=== PATIENT | female | born 1960 | race Caucasian/White ===

== ENCOUNTER 2016-09-18 05:51 | Outpatient (CLI) | payer MEDICARE ==
[~2016-09-18] VITALS: Ht 172.7 cm; Wt 88.9 kg
[~2016-09-18 05:51] MED LIST: ALPR.25T; ALPR.25T PO; ALPR.5T PO; ASPI-892 PO; ATEN50TA PO; BP MED; BSP5T PO; BUME1TAB4 PO; BUME2TAB3 PO; CAL1TABL3 PO; CALC-172 PO; CALC-385 PO; CALC-794 PO; CITA20TA7 PO; CITA40TA19 PO; CYCL-97 PO; CYCL10TA9 PO; DIAZ2.5K RC; DILT60CA; DILTIAZEM; DLT30T; DOXY100C2 PO; DOXY100C49; ETD400T PO; FLUT16SP22 NS; FOLI1TAB6 PO; FURO20TA4; FURO20TA4 PO; GBPN100C PO; GBPN300C PO; GELA650C3 PO; HCT25T; HYDR-3812 PO; HYDR118S10 PO; HYDR200T46 PO; IBUP-1780 PO; LEVO100T7 PO; LISI10TA PO; LISI20TA PO; LORA0.5T; LUBI24CA6 PO; LVT.025T PO; METF500T4 PO; METO50TA7; METO50TA7 PO; METR500T PO; MOXI400T3 PO; MULT-1029 PO; MULT-974 PO; NAPR250T34 PO; NAPR550T PO; NF-ESOM40C PO; OMEP20CA12 PO; ONDAN4ODT PO; PARO20TA57 PO; POTA20TA15 PO; PRD20T; PRD20T PO; PRED2.5T4 PO; QUIN20TA; QUIN40TA PO; SERT25TA PO; TIZA2CAP7 PO; TRAM50TA2 PO; TRAZ50TA67 PO; TRM50T PO; ZOLP10TA5 PO
[2016-09-18] MEDS ORDERED: LEVO150T6 PO (14:36)
== END 2016-09-18 14:38 ==
LOC: PREOP 05:51
PROVIDERS: ATTEND Surgery
DX: Z01.818 Encounter for other preprocedural examination (principal); R13.10 Dysphagia, unspecified

== ENCOUNTER 2016-09-22 12:28 | Day surgery (SDC) | payer MEDICARE, OTHER ==
[~2016-09-22] VITALS: Ht 172.7 cm; Wt 88.9 kg
[~2016-09-22 12:28] MED LIST changes: +LEVO150T6 PO
--- NOTE | 2016-09-22 12:40 | Pre-Op Note & Conscious Sedat ---
Pre-Operative Progress Note H&P Reviewed The H&P was reviewed, patient examined and no changes noted. Date H&P Reviewed: Sep 22, 2016 Time H&P Reviewed: 12:40 Pre-Op Diagnosis: dysphagia Conscious Sedation Pre-Proced ASA Class: 2 Airway Mallampati Classification: (ramona appropriate class) I. II. III, IV Lungs Heart ASA score ASA 1: a normal healthy patient ASA 2: a patient with a mild systemic disease (mid diabetes, controlled hypertension, obesity ASA 3: a patient with a severe systemic disease that limits activity (angina , COPD, prior Myocardial infarction) ASA 4: a patient with an incapacitating disease that is a constant threat to life (CHF, renal failure) ASA 5: a moribund patient not expected to survive 24 hrs. (ruptured aneurysm) ASA 6: a declared brain patient whose organs are being harvested. For emergent operations, add the letter E after the classification Grade 2 Sedation Plan: Discussed options with patient/fam Note The patient is an appropriate candidate to undergo the planned procedure, sedation, and anesthesia. The patient immediately re-assessed prior to indication. JHONY BRAND MD Sep 22, 2016 12:40 pm
[2016-09-22] MEDS ORDERED: NALOXONE 0.4 MG/ML 1 ML (NARCAN) VIAL IVP PRN (12:45)
[2016-09-22] MEDS ORDERED: NS IV 500 ML 500 ML IV ONE (12:45)
[2016-09-22] MEDS ORDERED: FLUMAZENIL (ROMAZICON) 0.1 MG/ML 5 ML VIAL INJ PRN (12:45)
[2016-09-22 12:55] VITALS: BP 141/71
[2016-09-22] MEDS ORDERED: fentaNYL INJECTION 100 MCG/2 ML AMP ONE ×2 (13:13→13:36)
[2016-09-22] MEDS ORDERED: MIDAZOLAM 2 MG/2 ML (VERSED) VIAL ONE ×4 (13:13→13:35)
[2016-09-22] MEDS ORDERED: HURRICAINE EXT TUBE (BENZOCAINE) ONE (13:14)
[2016-09-22 13:15] VITALS: BP 101/54
[2016-09-22] MEDS: MIDAZOLAM 2 MG/2 ML (VERSED) VIAL IVP PRN ×4 (13:33→13:44)
[2016-09-22] MEDS: fentaNYL INJECTION 100 MCG/2 ML AMP IVP PRN ×2 (13:35→13:40)
--- NOTE | 2016-09-22 14:04 | Progress Note-Post Operative ---
Post-Operative Progess Note Pre-Operative Diagnosis dysphagia Post-Operative Diagnosis hiatal hernia with a distal esophageal stricture. Distal gastritis Post-Op Procedure Note Date of Procedure: Sep 22, 2016 Name of Procedure: EGD with antral biopsy Balloon dilatation of stricture Anesthesia Type sedation Specimen(s) collected antral mucosa for H. pylori JHONY BRAND MD Sep 22, 2016 2:04 pm
--- NOTE | 2016-09-22 14:06 | Discharge Inst-Simple/Standard ---
Discharge Inst-Standard Discharge Medications New, Converted or Re-Newed RX: Other Patient Instructions/Follow Up Plan of Care/Instructions/FU: to increase omeprazole to twice a day Activity as Tolerated: Yes Discharge Diet: No Restrictions JHONY BRAND MD Sep 22, 2016 2:06 pm
[2016-09-22] MEDS ORDERED: HURRICAINE EXT TUBE (BENZOCAINE) XX ONE (14:15)
[2016-09-22 14:45] VITALS: BP 121/60
[2016-09-22 15:00] VITALS: BP 121/60
--- NOTE | 2016-09-23 08:46 | PROCEDURE REPORT ---
PROCEDURE PHYSICIAN: JHONY BRAND DATE OF PROCEDURE: 09/22/2015 PROCEDURE: 1. Upper GI endoscopy with antral biopsy. 2. Balloon dilatation of esophageal stricture. SURGEON: Dr. Brand. INDICATION FOR THE PROCEDURE: This lady came in for an upper endoscopy to evaluate ongoing dysphagia. An informed consent was obtained after reviewing the procedure in detail. DESCRIPTION OF PROCEDURE: She was placed in left lateral decubitus position and her vital signs were monitored. Conscious sedation was achieved using Versed and fentanyl. The flexible gastroscope was introduced down the esophagus, past the stomach, into the proximal. FINDINGS: ESOPHAGUS: Hiatal hernia with a stricture within it. It was dilated to 20 mm with a balloon. STOMACH: Evidence of distal gastritis was noticed. There was no sandrita ulceration. Biopsy for Helicobacter was obtained. DUODENUM: Normal. She tolerated the procedure well and was taken back to the nursing area in a stable condition. IMPRESSION: 1. Dysphagia due to a distal esophageal stricture. 2. Balloon dilatation completed. Job ID: [id number] Dictated Date: 09/22/2016 14:04:01 Technician Helper Instrument Date: 09/23/2016 08:44:46 / swetha GILES
== END 2016-09-22 15:00 | disposition home or self-care (01) ==
LOC: SDC 12:28
PROVIDERS: ATTEND Surgery
DX: K22.2 Esophageal obstruction (principal); K44.9 Diaphragmatic hernia without obstruction or gangrene

== ENCOUNTER → 2016-10-28 | Outpatient (CLI) | payer MEDICARE ==
[2016-10-28 11:10] LABS: MEAN PLATELET VOLUME 10.5 FL (7.4-10.4); RED BLOOD COUNT 4.43 10^6/uL (4.35-5.85); RED CELL DISTRIBUTION WIDTH 12.5 % (10.0-14.5); WHITE BLOOD COUNT 6.9 10^3/uL (4.3-11.0)
== END ==
LOC: LAB 10:47
PROVIDERS: ATTEND Surgery
DX: E05.90 Thyrotoxicosis, unspecified without thyrotoxic crisis or storm (principal); R53.83 Other fatigue
CPT/HCPCS: 36415; 84436; 84443; 84480; 85027

== ENCOUNTER → 2017-01-13 | Outpatient (CLI) | payer MEDICARE ==
--- NOTE | 2017-01-15 19:12 | Diagnostic Imaging Report ---
Bilateral screening mammogram The current study was also evaluated with a Computer Aided Detection (CAD) system. Indication: Screening. No current complaints stated on the questionnaire. COMPARISON: 09/18/15 FINDINGS: The breasts are composed of heterogeneously dense parenchyma which may decrease mammographic sensitivity. Benign-appearing calcifications are seen. Allowing for technique and positional differences, no suspicious change is seen. IMPRESSION: Dense breasts with no definite change. ACR BI-RADS Category 2: Benign findings. Result letter will be mailed to the patient. Note: At least 10% of breast cancer is not imaged by mammography. Dictated by: Dictated on workstation # [id number]
== END ==
LOC: RAD 09:41
PROVIDERS: ATTEND Nurse Practitioner Community Health
DX: Z12.31 Encounter for screening mammogram for malignant neoplasm of breast (principal)
CPT/HCPCS: 77067

== ENCOUNTER → 2017-01-13 | Outpatient (CLI) | payer MEDICARE | LOC: LAB 09:45 | PROVIDERS: ATTEND Surgery | DX: C73 Malignant neoplasm of thyroid gland (principal) | CPT/HCPCS: 36415; 84436; 84443 ==

== ENCOUNTER → 2017-03-13 | Outpatient (CLI) | payer MEDICARE ==
--- NOTE | 2017-03-13 14:28 | Diagnostic Imaging Report ---
PROCEDURE: CT urinary tract, rule out kidney stone. TECHNIQUE: Multiple contiguous axial images were obtained through the abdomen and pelvis without the use of intravenous contrast. INDICATION: Right flank pain. COMPARISON: 01/01/2012 FINDINGS: Included views of the lung bases are clear. CT abdomen: Moderate air and stool is seen scattered throughout the colon. Normal appendix is identified. Small bowel loops are nondistended. There is colonic diverticulosis, but no CT evidence of acute diverticulitis. The kidneys, adrenal glands, spleen, pancreas, and liver have an unremarkable noncontrast CT appearance. No renal or ureteral calculi are seen on either side. Additionally, there is no hydroureteronephrosis or other evidence of obstruction. There is no loculated fluid collection, free fluid, nor free air within the abdomen. No abnormal mesenteric or retroperitoneal adenopathy is seen. There is mild calcified aortic and arterial atherosclerosis. Bony structures show no acute abnormalities. CT pelvis: Urinary bladder is unopacified. No calculi are seen within the urinary bladder. There is no loculated fluid collection, free fluid, nor free air. No abnormal lymph node is seen. Bony structures show no acute abnormalities. IMPRESSION: 1. No acute abnormalities within the abdomen or pelvis. 2. Colonic diverticulosis, but no CT evidence of acute diverticulitis. 3. Moderate colonic air and stool. Please correlate for constipation. Dictated by: Dictated on workstation # [id number]
== END ==
LOC: RAD 12:49
PROVIDERS: ATTEND Nurse Practitioner Community Health
DX: K57.30 Diverticulosis of large intestine without perforation or abscess without bleeding (principal); K59.00 Constipation, unspecified
CPT/HCPCS: 74176

== ENCOUNTER → 2017-07-07 | Outpatient (CLI) | payer MEDICARE ==
[2017-07-07 11:09] LABS: BASOPHILS % (AUTO) 0 % (0-10); EOSINOPHILS # (AUTO) 0.1 10^3/uL (0.0-0.3); EOSINOPHILS % (AUTO) 2 % (0-10); LYMPHOCYTES # (AUTO) 1.6 X 10^3 (1.0-4.0); LYMPHOCYTES % (AUTO) 22 % (12-44); MEAN CORPUSCULAR HEMOGLOBIN 30 PG (25-34); MEAN CORPUSCULAR HGB CONC 34 G/DL (32-36); MEAN CORPUSCULAR VOLUME 87 FL (80-99); MEAN PLATELET VOLUME 10.8 FL (7.4-10.4); MONOCYTES # (AUTO) 0.7 X 10^3 (0.0-1.0); MONOCYTES % (AUTO) 10 % (0-12); NEUTROPHILS # (AUTO) 4.8 X 10^3 (1.8-7.8); NEUTROPHILS % (AUTO) 66 % (42-75); PLATELET COUNT 276 10^3/uL (130-400); RED BLOOD COUNT 4.68 10^6/uL (4.35-5.85); RED CELL DISTRIBUTION WIDTH 13.1 % (10.0-14.5); WHITE BLOOD COUNT 7.2 10^3/uL (4.3-11.0)
[2017-07-07 11:28] LABS: ALANINE AMINOTRANSFERASE 21 U/L (0-55); ALBUMIN 4.3 GM/DL (3.2-4.5); ANION GAP 12 MMOL/L (5-14); ASPARTATE AMINO TRANSFERASE 27 U/L (5-34); BILIRUBIN,TOTAL 0.6 MG/DL (0.1-1.0); BLOOD UREA NITROGEN 11 MG/DL (7-18); BUN/CREATININE RATIO 14; CALCIUM 9.4 MG/DL (8.5-10.1); CARBON DIOXIDE 27 MMOL/L (21-32); CHLORIDE 103 MMOL/L (98-107); CREATININE SERUM 0.77 MG/DL (0.60-1.30); GFR ESTIMATED > 60; GLUCOSE 87 MG/DL (70-105); SODIUM 142 MMOL/L (135-145); TOTAL PROTEIN 7.4 GM/DL (6.4-8.2); hs C REACTIVE PROTEIN 0.37 MG/DL (0.00-0.50)
== END ==
LOC: LAB 10:08
PROVIDERS: ATTEND Internal Medicine Rheumatology
DX: M06.9 Rheumatoid arthritis, unspecified (principal)
CPT/HCPCS: 36415; 80053; 85025; 86141; 86480; 86803; 87340

== ENCOUNTER → 2017-07-27 | Outpatient (CLI) | payer MEDICARE | LOC: CARD 10:15 | PROVIDERS: ATTEND Nurse Practitioner Family | DX: R00.2 Palpitations (principal); R06.02 Shortness of breath; I10 Essential (primary) hypertension; G47.30 Sleep apnea, unspecified | CPT/HCPCS: 93225; 93226 ==

== ENCOUNTER 2017-10-20 10:06 | Emergency (ER) | payer MEDICARE ==
[~2017-10-20] VITALS: Ht 170.2 cm; Wt 93.0 kg
[~2017-10-20 10:06] MED LIST changes: +ACHD5005 PO; -HYDR-3812 PO
[2017-10-20] MEDS ORDERED: FOLI0.4T2 PO (10:19)
[2017-10-20] MEDS ORDERED: METH2.5T PO (10:19)
--- NOTE | 2017-10-20 10:28 | ED Fall/Injury ---
General Chief Complaint: Trauma-Non Activation Stated Complaint: FALL ON ICE-LOWER BACK PAIN Nursing Triage Note: PT AMBULATES TO ROOM 6 PT STATES HAS FALLEN AT 0500 THIS AM AND IS HURTING ON R LOWER BACK AREA, SOME SWELLING AND BRUISING NOTED. PT STATES R LEG HAS PAIN AND NUMBNESS. Source: patient Exam Limitations: no limitations History of Present Illness Date Seen by Provider: Oct 20, 2017 Time Seen by Provider: 10:15 Initial Comments Patient presents to ER by private conveyance with a chief complaint that about 5 :00 this morning she fell going down stairs of her brother's house and landed with the step across her low back. She has a history of chronic back pain without any history of back surgeries. She is disabled for back pain. She says she's having quite a bit of pain in her back that radiates to her left hip causes some tingling sensations. She's had no loss of control of her bowels or bladder. No numbness and no falls since then. She has no dysuria or discharge, fevers chills nausea vomiting. She did not strike her head nor lose consciousness. She is on ibuprofen twice a day 800 mg already as well as tramadol for breakthrough pain. Allergies and Home Medications Allergies Coded Allergies: Penicillins (Verified Allergy, Severe, CARDIAC ARREST, 07/09/16) yeast, dried (Unverified Allergy, Mild, 02/21/09) Home Medications Alprazolam 0.25 Mg Tab, 0.25 MG PO BID PRN for ANXIETY, (Reported) Bumetanide 2 Mg Tablet, 1 MG PO BID, (Reported) take 1/2 of 2mg tab Calcium Carb & Citrate/Vit D3 1 Each Tablet.er, 4 EACH PO BID, (Reported) Citalopram Hydrobromide 20 Mg Tablet, 20 MG PO DAILY, (Reported) Folic Acid 0.4 Mg Tablet, Unknown Dose PO, (Reported) Gabapentin 300 Mg Cap, 300 MG PO TID, (Reported) Gelatin 650 Mg Capsule, 1,300 MG PO DAILY, (Reported) take 2 (650mg) tabs Ibuprofen 800 Mg Tablet, 800 MG PO Q8H PRN for PAIN, (Reported) Levothyroxine Sodium 150 Mcg Tablet, 150 MCG PO DAILY, (Reported) Lisinopril 20 Mg Tablet, 20 MG PO DAILY, (Reported) Metformin HCl 500 Mg Tablet, 500 MG PO DAILY, (Reported) Methotrexate Sodium 2.5 Mg Tablet, Unknown Dose PO WEEK, (Reported) Multivitamin/Iron/Folic Acid 1 Each Tablet, 1 EACH PO DAILY, (Reported) Omeprazole 20 Mg Capsule.dr, 20 MG PO DAILY, (Reported) Potassium Chloride 20 Meq Tab.prt.sr, 20 MEQ PO BID, (Reported) Tramadol Hcl 50 Mg Tablet, 100 MG PO TID, (Reported) take 2 (50MG) TABS Constitutional: No chills, No diaphoresis Eyes: Denies Blindness, Denies Blurred Vision Ears, Nose, Mouth, Throat: denies ear pain, denies nose pain Respiratory: No cough, No short of breath Cardiovascular: No chest pain, No palpitations Gastrointestinal: No constipation, No diarrhea, No nausea Genitourinary: No discharge, No dysuria Past Bmkpmcg-Emwcps-Yvqyie Hx Patient Social History Alcohol Use: Past History Recreational Drug Use: No Smoking Status: Never a Smoker Recent Foreign Travel: No Contact w/Someone Who Travel: No Recent Infectious Disease Expo: No Recent Hopitalizations: No Immunizations Up To Date Date of Pneumonia Vaccine: Jul 29, 2015 Date of Influenza Vaccine: May 12, 2016 Seasonal Allergies Seasonal Allergies: No Surgeries Surgeries: Gallbladder, Thyroidectomy Respiratory Respiratory Disorders: COPD Cardiovascular Cardiac Disorders: Heart Murmur, Hypertension Neurological Neurological Disorders: Headaches /Migraines Reproductive System Hx Reproductive Disorders: No Sexually Transmitted Disease: No HIV/AIDS: No Gastrointestinal Gastrointestinal Disorders: Gastroesophageal Reflux, Diverticulosis Musculoskeletal Musculoskeletal Disorders: Degenerate Disk Disease, Arthritis, Rheumatoid Arthritis, Chronic Back Pain Endocrine Endocrine Disorders: Hypothyroidsim HEENT Loss of Vision: Bilateral Hearing Impairment: Denies Cancer Cancer: Skin Psychosocial Behavioral Health Disorders: Anxiety, Suicide Attempts, Depression Blood Transfusions Adverse Reaction to a Blood Tr: No Physical Exam Vital Signs Vital Signs - First Documented 10/20/17 10:15 Temp 98.2 Pulse 114 Resp 18 B/P (MAP) 120/85 (97) Pulse Ox 96 Capillary Refill : Less Than 3 Seconds General Appearance: WD/WN, no apparent distress HEENT: PERRL/EOMI, pharynx normal Neck: non-tender, supple, normal inspection Cardiovascular: normal peripheral pulses, regular rate, rhythm Respiratory: no respiratory distress, no accessory muscle use Peripheral Pulses: 2+ Dorsalis Pedis (R), 2+ Left Dors-Pedis (L) Back: vertebral tenderness (lumbar spine with some ecchymoses and mild to moderate swelling.) Extremities: normal range of motion, non-tender, normal inspection, normal capillary refill Neurologic/Psychiatric: no motor/sensory deficits, alert, oriented x 3, other ( bilateral patellar deep tendon reflexes are symmetric 2 out of 4.) Skin: ecchymosis (over lumbar spine) [place] Coma Score Best Eye Response: (4) Open Spontaneously Best Verbal Response: (5) Oriented Best Motor Response: (6) Obeys Commands Ashley Total: 15 Progress/Results/Core Measures Results/Orders My Orders Orders - SHAQ CARLISLE Lumbar Spine - 2-3 Views (10/20/17 10:23) Vital Signs/I&O Vital Sign - Last 12Hours 10/20/17 10:15 Temp 98.2 Pulse 114 Resp 18 B/P (MAP) 120/85 (97) Pulse Ox 96 Blood Pressure Mean: 97 Progress Note : Time: 10:27 Progress Note Plain films to rule out fracture given her swelling and pain. Her sciatica is likely due to the local inflammation from her fall. Does not seem to be any inciting event other than slipping on ice on some steps. Shuart he has tramadol is not asking for anything for pain right now and would be amenable to increasing her NSAID dosage for the next 2 weeks. We'll give her an ice pack and talk about other conservative measures. Diagnostic Imaging Diagonstic Imaging: Xray Plain Films/CT/US/NM/MRI: other (lumbar spine) Comments VIA [facility] [place], [place] NAME: JNKAREEM D [facility] REC#: [id number] PT STATUS: REG ER : 1960 PHYSICIAN: SHAQ CARLISLE MD ADMIT DATE: 10/20/17/ER Draft Date of Exam:10/20/17 LUMBAR SPINE - 2-3 VIEWS INDICATION: Back pain post fall AP and lateral views of the lumbar spine are obtained. The lumbar vertebrae are normal in height and alignment. There is diffuse degenerative change with disc space narrowing at essentially all levels most prominent at L4-5. There is osteophyte formation throughout all levels. There is no compression deformity or acute fracture. There is facet degenerative change at L4-5 and L5-S1. IMPRESSION: Degenerative changes. No acute fracture or compression deformity. Dictated on workstation # [id number] Dict: 10/20/17 1104 Trans: 10/20/17 1112 [employer] [facility] [id number] Interpreted by: FLYNN VENTURA MD Electronically signed by: Reviewed: Reviewed by Me Departure Impression Impression: Primary Impression: Fall (on) (from) other stairs and steps, initial encounter Additional Impressions: Lumbar contusion Qualified Codes: S30.0XXA - Contusion of lower back and pelvis, initial encounter Sciatica of left side Disposition: HOME, SELF-CARE Condition: Stable Departure-Patient Inst. Decision time for Depature: 11:26 Referrals: MOE BORJAS MD (PCP) Primary Care Physician ELISEO BENDER (Family) Primary Care Physician Patient Instructions: Low Back Pain (DC) Add. Discharge Instructions: For the first 2 or 3 days apply ice for 20 minutes every 4 hours. You can use heating pads and between as well as creams such as icy hot. Use an NSAID every day on a schedule for the first 2 weeks. For example you can use ibuprofen 800 mg every 8 hours or you can use Naprosyn 2 capsules twice a day. You can also use Tylenol 1000 g every 6 hours as needed as well as your tramadol as prescribed. Stay mobile and use a back brace as needed to help with your pain. Follow up with your primary care physician in about 2-4 weeks ago not seeing adequate improvement. All discharge instructions reviewed with patient and/or family. Voiced understanding. Copy Copies To 1: CASTRO POWELL TITUS J Oct 20, 2017 10:28
--- NOTE | 2017-10-20 11:12 | Diagnostic Imaging Report ---
INDICATION: Back pain post fall AP and lateral views of the lumbar spine are obtained. The lumbar vertebrae are normal in height and alignment. There is diffuse degenerative change with disc space narrowing at essentially all levels most prominent at L4-5. There is osteophyte formation throughout all levels. There is no compression deformity or acute fracture. There is facet degenerative change at L4-5 and L5-S1. IMPRESSION: Degenerative changes. No acute fracture or compression deformity. Dictated by: Dictated on workstation # [id number]
[2017-10-20 11:36] VITALS: BP 120/85
== END 2017-10-20 11:36 | disposition home or self-care (01) ==
LOC: EDUNIT# 10:06 → ER 10:08
DX: S30.0XXA Contusion of lower back and pelvis, initial encounter (principal); M54.32 Sciatica, left side; J44.9 Chronic obstructive pulmonary disease, unspecified; I10 Essential (primary) hypertension; G43.909 Migraine, unspecified, not intractable, without status migrainosus; K21.9 Gastro-esophageal reflux disease without esophagitis; M06.9 Rheumatoid arthritis, unspecified; E03.9 Hypothyroidism, unspecified; F41.9 Anxiety disorder, unspecified; F32.9 Major depressive disorder, single episode, unspecified; R40.2142 Coma scale, eyes open, spontaneous, at arrival to emergency department; R40.2252 Coma scale, best verbal response, oriented, at arrival to emergency department; R40.2362 Coma scale, best motor response, obeys commands, at arrival to emergency department; Z91.5 Personal history of self-harm; Z79.84 Long term (current) use of oral hypoglycemic drugs; Z91.048 Other nonmedicinal substance allergy status; Z90.89 Acquired absence of other organs; W10.8XXA Fall (on) (from) other stairs and steps, initial encounter
CPT/HCPCS: 72100; 99282

== ENCOUNTER → 2017-10-29 | Outpatient (CLI) | payer MEDICARE ==
[~2017-10-29] MED LIST changes: +FOLI0.4T2 PO; +METH2.5T PO
[2017-10-29 09:34] LABS: HEMOGLOBIN 13.7 G/DL (11.5-16.0); MEAN PLATELET VOLUME 10.2 FL (7.4-10.4); RED BLOOD COUNT 4.46 10^6/uL (4.35-5.85); RED CELL DISTRIBUTION WIDTH 13.4 % (10.0-14.5); WHITE BLOOD COUNT 7.3 10^3/uL (4.3-11.0)
[2017-10-29 09:51] LABS: CREATININE SERUM 0.76 MG/DL (0.60-1.30); GFR ESTIMATED > 60
== END ==
LOC: LAB 09:17
PROVIDERS: ATTEND Internal Medicine Rheumatology
DX: M06.9 Rheumatoid arthritis, unspecified (principal)
CPT/HCPCS: 36415; 82565; 84450; 85027; 86141

== ENCOUNTER → 2017-11-09 | Outpatient (CLI) | payer MEDICARE ==
--- NOTE | 2017-11-09 14:44 | Diagnostic Imaging Report ---
INDICATION: History of rheumatoid arthritis, basal cell carcinoma in 2015, as well as a prior history of papillary thyroid carcinoma in 2016, status post total thyroidectomy. Patient sustained a fall on 10/21/2016 and now complains of low back pain as well as upper back pain. TECHNIQUE: The patient was administered 26.1 mCi technetium-99m MDP intravenously, and whole-body imaging was performed after a three-hour delay. COMPARISON: No prior studies are available for comparison. FINDINGS: There is normal uptake of activity by the axial and appendicular skeleton. There is normal uptake of activity by both kidneys with excretion into the urinary bladder. No abnormal foci of tracer accumulation are seen to suggest occult fracture or osseous metastatic disease. There is mild uptake in the right mid foot, likely on a degenerative basis. Very minimal uptake in the lower lumbar spine is identified on the right, likely owing to facet degenerative change. No other abnormalities are seen. IMPRESSION: Degenerative changes. There is no scintigraphic evidence of occult fracture or osseous metastatic disease. Dictated by: Dictated on workstation # [id number]
== END ==
LOC: CARD 10:47
PROVIDERS: ATTEND Internal Medicine Rheumatology
DX: M06.9 Rheumatoid arthritis, unspecified (principal)
CPT/HCPCS: 78306

== ENCOUNTER → 2018-01-26 | Outpatient (CLI) | payer MEDICARE ==
[~2018-01-26] MED LIST changes: -CITA20TA7 PO; +CITA20TA9 PO; -METF500T4 PO; +METF500T5 PO
[2018-01-26 12:05] LABS: HEMOGLOBIN 12.8 G/DL (11.5-16.0); MEAN PLATELET VOLUME 10.1 FL (7.4-10.4); RED BLOOD COUNT 4.13 10^6/uL (4.35-5.85); RED CELL DISTRIBUTION WIDTH 13.7 % (10.0-14.5); WHITE BLOOD COUNT 6.1 10^3/uL (4.3-11.0)
[2018-01-26 12:20] LABS: CREATININE SERUM 0.74 MG/DL (0.60-1.30); GFR ESTIMATED > 60
== END ==
LOC: LAB 11:35
PROVIDERS: ATTEND Internal Medicine Rheumatology
DX: M06.9 Rheumatoid arthritis, unspecified (principal)
CPT/HCPCS: 36415; 82565; 84450; 85027; 86141

== ENCOUNTER → 2018-03-23 | Outpatient (CLI) | payer MEDICARE ==
[~2018-03-23] MED LIST changes: -METH2.5T PO; +MTX2.5T PO
== END ==
LOC: RAD 09:37
PROVIDERS: ATTEND Nurse Practitioner Community Health
DX: Z12.31 Encounter for screening mammogram for malignant neoplasm of breast (principal); Z53.8 Procedure and treatment not carried out for other reasons

== ENCOUNTER → 2018-04-12 | Outpatient (CLI) | payer MEDICARE ==
--- NOTE | 2018-04-12 14:02 | Diagnostic Imaging Report ---
INDICATION: Right breast pain. Patient also had a recent episode of right breast bloody nipple discharge, however patient denies having bloody discharge today. Correlation is made to prior study from 01/13/2017 and 09/18/2015. 2-D and 3-D bilateral diagnostic mammography was performed with CAD. Scattered fibronodular densities are identified bilaterally. The overall parenchymal pattern is stable. No dominant mass is seen. There are benign calcifications present. No malignant appearing microcalcifications are seen. Benign nodular densities in the medial left breast are stable. Axillae are unremarkable. IMPRESSION: BI-RADS zero Stable bilateral mammograms. No mammographic feature suspicious for malignancy are identified. Even so, sonographic interrogation of the right breast in the retroareolar region as well as at the area of the patient's pain is recommended and will be performed today. ACR BI-RADS Category 0: Incomplete. (Needs additional imaging evaluation). Result letter will be mailed to the patient. Note: At least 10% of breast cancer is not imaged by mammography. Dictated by: Dictated on workstation # [id number]
--- NOTE | 2018-04-12 14:08 | Diagnostic Imaging Report ---
INDICATION: Right breast pain as well as recent episodes of bloody nipple discharge. TECHNIQUE: Sonographic interrogation of all four quadrants, right axilla, and retroareolar region of the right breast was performed. FINDINGS: No sonographic abnormality is identified. No solid or cystic mass is detected. IMPRESSION: No sonographic abnormality is seen. Clinical followup is recommended. ACR BI-RADS Category 1: Negative. Dictated by: Dictated on workstation # [id number]
== END ==
LOC: RAD 12:28
PROVIDERS: ATTEND Nurse Practitioner Community Health
DX: N64.52 Nipple discharge (principal)
CPT/HCPCS: 77066

== ENCOUNTER 2018-06-03 05:32 | Outpatient (CLI) | payer MEDICARE ==
[~2018-06-03] VITALS: Ht 170.2 cm; Wt 87.5 kg
[~2018-06-03 05:32] MED LIST changes: +METF-397 PO; -METF500T5 PO
[2018-06-03] MEDS ORDERED: ALPR0.254 PO (14:08)
[2018-06-03] MEDS ORDERED: GABA-488 PO (14:08)
[2018-06-03] MEDS ORDERED: POTA20TA15 PO (14:08)
[2018-06-03] MEDS ORDERED: FOLI1TAB24 PO (14:09)
[2018-06-03] MEDS ORDERED: CITA40TA19 PO (14:09)
[2018-06-03] MEDS ORDERED: TRAM50TA2 PO (14:09)
[2018-06-03] MEDS ORDERED: GELA650C4 PO (14:09)
== END 2018-06-03 14:53 | disposition home or self-care (01) ==
LOC: PREOP 05:32
PROVIDERS: ATTEND Surgery
DX: Z01.818 Encounter for other preprocedural examination (principal)

== ENCOUNTER 2018-06-07 10:53 | Day surgery (SDC) | payer MEDICARE ==
[~2018-06-07] VITALS: Ht 170.2 cm; Wt 87.5 kg
[~2018-06-07 10:53] MED LIST changes: +ALPR0.254 PO; +FOLI1TAB24 PO; +GABA-488 PO; +GELA650C4 PO
[2018-06-07 11:15] VITALS: BP 133/83
[2018-06-07] MEDS ORDERED: VANCOMYCIN 1000 MG/VIAL ONE (11:17)
[2018-06-07] MEDS ORDERED: NS (IVPB) 250 ML ONE (11:18)
--- OUTSIDE RECORDS SUMMARY | 2018-06-07 11:27 | XMS REPORT ---
Author Author ELISEO BENDER [facility] Address [address] [place] [address] Care Team Providers Care Cutter First Name Role Phone ELISEO BENDER Unavailable PROBLEMS Type Condition ICD9-CM Code QKI20-HE Code Onset Dates Condition Status SNOMED Code Problem Chest pain, unspecified type R07.9 Active 16408425 Problem Depression, unspecified depression type F32.9 Active 93571094 Problem Anxiety F41.9 Active 15672659 Problem BMI 30.0-30.9,adult Z68.30 Active 986162279 Problem Moderate episode of recurrent major depressive disorder F33.1 Active 027723042 Problem Thyroid cancer C73 Active 222346760 Problem Postoperative hypothyroidism E89.0 Active 54523107 Problem BMI 31.0-31.9,adult Z68.31 Active 381326496 Problem Other atopic dermatitis L20.89 Active 75840663 Problem Low back pain, unspecified back pain laterality, with sciatica presence unspecified M54.5 Active 019043005 Problem Neuropathy G62.9 Active 745613661 Problem Other chronic pain G89.29 Active 46642910 Problem Dysthymia F34.1 Active 05087677 Problem 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 Active 62052250 Problem Insomnia G47.00 Active 836125451 Problem Gastro-esophageal reflux disease without esophagitis K21.9 Active 551275084 Problem Rheumatoid arthritis, involving unspecified site, unspecified rheumatoid factor presence M06.9 Active 20706298 ALLERGIES No Information ENCOUNTERS Encounter Location Date Diagnosis [facility] [id number], [place] [address] Jun, [facility] [id number], [place] [address] 24 May, 2018 [facility] [id number], [place] [address] May, Discharge from nipple N64.52 and Dysfunction of right eustachian tube H69.81 [place] [address] 32056- 7574 Apr, Low back pain, unspecified back pain laterality, with sciatica presence unspecified M54.5 [facility] [id number] [place] [address] 74165 -0637 Apr, Right ear pain H92.01 [place] [address] 41899- 8973 Apr, Postoperative hypothyroidism E89.0 [place] [address] 61108- 0078 Apr, Low back pain, unspecified back pain laterality, with sciatica presence unspecified M54.5 [place] [address] 32143- 5425 Mar, Breast cancer screening Z12.39 and Discharge from nipple N64.52 [place] [id number] [place] [address] 21581- 6110 Mar, Low back pain, unspecified back pain laterality, with sciatica presence unspecified M54.5 [place] [id number] [place] [address] 83503- 3166 Mar, Low back pain, unspecified back pain laterality, with sciatica presence unspecified M54.5 ; Rheumatoid arthritis, involving unspecified site, unspecified rheumatoid factor presence M06.9 ; Breast cancer screening Z12.39 and Moderate episode of recurrent major depressive disorder F33.1 [place] [address] 74968- 7574 Feb, Low back pain, unspecified back pain laterality, with sciatica presence unspecified M54.5 [place] [id number] [place] [address] 77874- 1955 January, BMI 30.0-30.9,adult Z68.30 [place] [id number] [place] [address] 70010- 0547 15 Jan, 2018 Low back pain, unspecified back pain laterality, with sciatica presence unspecified M54.5 [facility] [id number] [place] [address] 05229- 7506 January, [facility] [id number] [place] [address] 27928- 6801 Dec, Low back pain, unspecified back pain laterality, with sciatica presence unspecified M54.5 [place] [id number] [place] [address] 38638- 0442 Nov, Low back pain, unspecified back pain laterality, with sciatica presence unspecified M54.5 [place] [id number] [place] [address] 62164- 5331 Nov, [place] [address] 36005- 3675 Nov, Low back pain, unspecified back pain laterality, with sciatica presence unspecified M54.5 ; Other chronic pain G89.29 ; Rheumatoid arthritis, involving unspecified site, unspecified rheumatoid factor presence M06.9 and Dysthymia F34.1 [place] [id number] [place] [address] 08471- 2065 Oct, Low back pain, unspecified back pain laterality, with sciatica presence unspecified M54.5 [facility] [id number] [place] [address] 09181- 6472 Sep, Low back pain, unspecified back pain laterality, with sciatica presence unspecified M54.5 [facility] [id number] [place] [address] 00326 -8816 Sep, Fever R50.9 and URI, acute J06.9 [facility] [id number] [place] [address] 80232- 6484 Aug, [facility] [address] [place] [address]- 5868 Aug, Low back pain, unspecified back pain laterality, with sciatica presence unspecified M54.5 [facility] [id number] [place] [address] 06574- 9763 Jul, Low back pain, unspecified back pain laterality, with sciatica presence unspecified M54.5 [facility] [id number] [place] [address] 79479 -4250 Jul, Nausea R11.0 ; Fever and chills R50.9 ; UTI symptoms R39.9 and Hematuria, unspecified type R31.9 [place] [address] 17667- 7945 Jul, [facility] [address] 54258- 5647 Jun, Low back pain, unspecified back pain laterality, with sciatica presence unspecified M54.5 [facility] [address] 88924- 0438 Jun, BMI 31.0-31.9,adult Z68.31 [facility] [address] 41801- 6511 Jun, Neuropathy G62.9 [place] [address] 64816- 3366 Jun, Low back pain, unspecified back pain laterality, with sciatica presence unspecified M54.5 [facility] [id number] [place] [address] 93849- 6283 Jun, Encounter for immunization Z23 [facility] [address] 09842- 5472 Jun, BMI 31.0-31.9,adult Z68.31 [facility] [address] 32216- 2977 Jun, Low back pain, unspecified back pain laterality, with sciatica presence unspecified M54.5 [place] [address] 84722- 5359 May, Low back pain, unspecified back pain laterality, with sciatica presence unspecified M54.5 ; Other chronic pain G89.29 ; Plantar fasciitis M72.2 ; Rheumatoid arthritis, involving unspecified site, unspecified rheumatoid factor presence M06.9 and History of alcohol abuse Z87.898 [place] [address] 30540- 7283 08 May, 2017 Anxiety F41.9 and Low back pain, unspecified back pain laterality, with sciatica presence unspecified M54.5 [place] [address] 60480- 7583 Apr, Anxiety F41.9 and Low back pain, unspecified back pain laterality, with sciatica presence unspecified M54.5 [place] [address] 12756- 5652 18 Mar, 2017 Acute right-sided low back pain without sciatica M54.5 ; Rash R21 ; Right flank pain R10.9 ; Lipid screening Z13.220 ; Other chronic pain G89.29 ; 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 ; Postoperative hypothyroidism E89.0 and Breast cancer screening Z12.39 [place] [address] 40075- 8693 14 Mar, 2017 Anxiety F41.9 and Low back pain, unspecified back pain laterality, with sciatica presence unspecified M54.5 [place] [address] 75464- 1177 13 Mar, 2017 Acute right-sided low back pain without sciatica M54.5 [place] [address] 69568- 9701 07 Mar, 2017 Anxiety F41.9 [place] [address] 47293- 5840 Feb, Right flank pain R10.9 and Anxiety F41.9 [place] [id number] [place] [address] 84997- 5643 16 Feb, 2017 BMI 31.0-31.9,adult Z68.31 [place] [address] 4959 Feb, Low back pain, unspecified back pain laterality, with sciatica presence unspecified M54.5 and Anxiety F41.9 [facility] [address] 86690 -0176 January, Abscess of toe of right foot L02.611 and Other atopic dermatitis L20.89 [place] [address] 19988- 5018 January, Low back pain, unspecified back pain laterality, with sciatica presence unspecified M54.5 and Anxiety F41.9 [place] [address] 72592- 7678 Dec, Anxiety F41.9 and Low back pain, unspecified back pain laterality, with sciatica presence unspecified M54.5 [facility] [address] 12438 -8671 Dec, Scabies B86 [address] [address] 03945- 7259 Nov, Rash R21 ; Other chronic pain G89.29 ; 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 ; Postoperative hypothyroidism E89.0 ; Breast cancer screening Z12.39 and Lipid screening Z13.220 [place] [address] 50534- 3827 Nov, Anxiety F41.9 and Low back pain, unspecified back pain laterality, with sciatica presence unspecified M54.5 [place] [address] 23029- 9227 Oct, Anxiety F41.9 and Low back pain, unspecified back pain laterality, with sciatica presence unspecified M54.5 [place] [id number] [place] [address] 19755- 7515 Sep, Anxiety F41.9 and Low back pain, unspecified back pain laterality, with sciatica presence unspecified M54.5 [facility] [id number] [place] [address] 50022- 0265 Sep, Anxiety F41.9 [facility] [address] 81334- 0814 Sep, Gastro-esophageal reflux disease without esophagitis K21.9 [facility] [address] [id number] Sep, Dental examination Z01.20 [facility] [id number] [place] [address] 24207- 6579 Sep, Low back pain, unspecified back pain laterality, with sciatica presence unspecified M54.5 and Postoperative hypothyroidism E89.0 [facility] [id number] [place] [address] 39724- 4906 Aug, Anxiety F41.9 [facility] [address] 75100- 4923 Aug, [facility] [id number] [place] [address] 62466- 8330 Aug, Low back pain, unspecified back pain laterality, with sciatica presence unspecified M54.5 ; Other chronic pain G89.29 ; Thyroid cancer C73 and Postoperative hypothyroidism E89.0 [facility] [id number] [place] [address] 79993- 5935 Jul, [facility] [address] 25178- 0494 Jul, Anxiety F41.9 [facility] [id number] [place] [address] 68477- 8236 Jul, [facility] [address] 08521- 7903 Jul, BMI 29.0-29.9,adult Z68.29 [place] [address] 24519- 6318 Jul, [place] [address] 76213- 3371 Jul, BMI 30.0-30.9,adult Z68.30 [place] [address] 25830- 6026 Jul, Low back pain, unspecified back pain laterality, with sciatica presence unspecified M54.5 and Anxiety F41.9 [place] [address] 34979- 3209 Jun, 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 [place] [address] 52234- 9845 Jun, BMI 30.0-30.9,adult Z68.30 [place] [address] 74830- 1068 Jun, [place] [address] 21108- 1371 Jun, 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 ; Dysthymia F34.1 ; Encounter for immunization Z23 and Other chronic pain G89.29 [place] [address] 88150- 1198 Jun, Low back pain, unspecified back pain laterality, with sciatica presence unspecified M54.5 [place] [address] 70572- 5764 Jun, BMI 30.0-30.9,adult Z68.30 [place] [address] 80290- 3669 Jun, Anxiety F41.9 [place] [address] 22667- 4179 May, 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 [place] [id number] [place] [address] 06095- 4960 May, Constipation, unspecified constipation type K59.00 [place] [address] 17002- 3420 08 May, 2016 Low back pain, unspecified back pain laterality, with sciatica presence unspecified M54.5 [place] [address] 66140- 4933 May, [place] [address] 73995- 2868 May, Constipation, unspecified constipation type K59.00 [place] [address] 57536- 4718 May, Anxiety F41.9 [place] [address] 47978- 9055 Apr, BMI 31.0-31.9,adult Z68.31 [place] [address] 99308- 7233 Apr, Thyroid goiter E04.9 [place] [address] 45089- 6002 Apr, [place] [id number] [place] [address] 03672- 5457 Apr, Low back pain, unspecified back pain laterality, with sciatica presence unspecified M54.5 [place] [id number] [place] [address] 73249- 2048 Apr, [place] [address] 66784- 8987 Apr, Constipation, unspecified constipation type K59.00 ; Thyroid nodule E04.1 ; Family history of colon cancer Z80.0 and 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 [place] [address] 02968- 5967 Apr, Anxiety F41.9 [facility] [id number] [place] [address] 90653- 3431 Mar, [facility] [id number] [place] [address] 16538- 3824 Mar, Low back pain, unspecified back pain laterality, with sciatica presence unspecified M54.5 [facility] [id number] [place] [address] 73610- 2768 Mar, BMI 32.0-32.9,adult Z68.32 [facility] [id number] [place] [address] 48328- 9791 Feb, Anxiety F41.9 [facility] [id number] [place] [address] 36169- 7727 Feb, Depression, unspecified depression type F32.9 [facility] [id number] [place] [address] 23250- 7325 Feb, BMI 32.0-32.9,adult Z68.32 [facility] [id number] [place] [address] 19806- 4122 Feb, Low back pain, unspecified back pain laterality, with sciatica presence unspecified M54.5 [facility] [id number] [place] [address] 51847- 0321 Feb, [facility] [id number] [place] [address] 18333- 3232 Feb, BMI 32.0-32.9,adult Z68.32 [facility] [id number] [place] [address] 97780- 5203 Feb, Anxiety F41.9 [facility] [id number] [place] [address] 13779- 1072 January, BMI 32.0-32.9,adult Z68.32 [facility] [id number] [place] [address] 82905- 0896 January, Low back pain, unspecified back pain laterality, with sciatica presence unspecified M54.5 ; Other chronic pain G89.29 ; Weight gain R63.5 and Rheumatoid arthritis, involving unspecified site, unspecified rheumatoid factor presence M06.9 [place] [id number] [place] [address] 54730- 0964 January, Low back pain, unspecified back pain laterality, with sciatica presence unspecified M54.5 [place] [address] 65368- 9200 January, BMI 32.0-32.9,adult Z68.32 [place] [address] 56992- 4809 January, BMI 32.0-32.9,adult Z68.32 [place] [address] 67100- 3465 January, BMI 32.0-32.9,adult Z68.32 [place] [id number] [place] [address] 28733- 7002 Dec, Insomnia G47.00 and Dysthymia F34.1 [place] [id number] [place] [address] 82069- 2839 Dec, [place] [id number] [place] [address] 59278- 3120 Dec, Other chronic pain G89.29 ; Neuropathy G62.9 and Dysthymia F34.1 [place] [id number] [place] [address] 49061- 1833 Dec, [place] [address] 07115- 4966 Nov, [place] [id number] [place] [address] 40155- 0752 Nov, [place] [address] 39176- 7477 Nov, [facility] [address], [place] [address]- 7022 Oct, [facility] [id number] [place] [address] 08817- 0147 Oct, [facility] [id number] [place] [address] 70186- 1960 Oct, Family history of diabetes mellitus Z83.3 [facility] [id number] [place] [address] 05366- 9611 Oct, [facility] [id number] [place] [address] 13292- 6439 Sep, [facility] [id number] [place] [address] 27385- 9165 Sep, Eye pain, right H57.11 and Other chronic pain G89.29 [place] [id number] [place] [address] 95405- 5539 Sep, [facility] [id number] [place] [address] 31083- 3241 Sep, [facility] [id number] [place] [address] 75235- 0940 Sep, 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 ; Neuropathy G62.9 ; Low back pain, unspecified back pain laterality, with sciatica presence unspecified M54.5 ; Gastro-esophageal reflux disease without esophagitis K21.9 and Encounter for long-term (current) use of other medications V58.69 [facility] [id number] [place] [address] 09674- 6064 Sep, [facility] [id number] [place] [address] 37001- 4744 Sep, [facility] [id number] [place] [address] 52252- 7160 Sep, [facility] [id number] [place] [address] 21421- 4132 Sep, [facility] [address], [place] [address]- 6334 Aug, [facility] [id number] [place] [address] 551391- 5671 Aug, Family history of diabetes mellitus Z83.3 [facility] [id number] [place] [address] 18157- 8442 Aug, [facility] [id number] [place] [address] 67226- 3443 Aug, [facility] [id number] [place] [address] 36910- 1663 16 Aug, 2015 Family history of diabetes mellitus Z83.3 [facility] [id number] [place] [address] 29855- 9215 14 Aug, 2015 Weight gain R63.5 ; Edema, unspecified R60.9 ; Family history of diabetes mellitus Z83.3 and Gastroesophageal reflux disease with esophagitis K21.0 [facility] [id number] [place] [address] 94641- 2731 Aug, [facility] [id number] [place] [address] 87915- 8043 Aug, [facility] [id number] [place] [address] 55823- 5267 Jul, [facility] [id number] [place] [address] 71933- 9126 Jul, [facility] [id number] [place] [address] 21790- 6038 Jul, [facility] [id number] [place] [address] 85673- 5531 Jun, [facility] [address], [place] [address]- 6175 Jun, Nose pain J34.89 ; Encounter for immunization Z23 ; Screening for breast cancer Z12.39 and Encounter for long-term (current) use of other medications V58.69 [facility] [address], [place] [address]- 8705 Jun, [facility] [id number], [place] [address]- 6083 May, [facility] [address], [place] [address]- 6353 18 May, 2015 [facility] [address] [facility] [id number] [address] 2546 May, [facility] [address], [place] [address]- 3496 May, [facility] [id number] [address]- 0637 May, [facility] [address], [place] [address]- 2555 May, [facility] [address] [address]- 1273 May, [facility] [address], [place] [address]- 8562 Apr, [facility] [address], [place] [address]- 7094 Apr, [facility] [address], [place] [address]- 6048 Apr, [facility] [address], [place] [address]- 2542 Mar, [facility] [address], [place] [address]- 1735 Mar, [facility] [address], [place] [address]- 2544 Mar, Lesion of left shoulder 709.9 [facility] [address], [place] [address]- 5253 Mar, [facility] [address], [place] [address]- 7352 Mar, [facility] [id number] [address]- 7655 Mar, [facility] [address], [place] [address]- 6541 Feb, [facility] [id number] [place] [address] 33883- 3148 Feb, [facility] [address], [place] [address]- 9613 Feb, Unspecified backache 724.5 ; Weight gain 783.1 ; Hypothyroid 244.9 ; Edema 782.3 and Diaphoresis 780.8 [facility] [id number] [address] Feb, [facility] [id number] [address] Feb, [facility] [id number], [place] [address] Feb, [facility] [id number] [place] [address] Feb, [facility] [id number], [place] [address] Feb, [facility] [place] [facility] [id number] [address] January, [facility] [id number], [place] [address] January, [facility] [id number] [address] Dec, [facility] [place] [facility] [id number], [place] [address] Dec, [facility] [id number] [place] [address] 16 Nov, 2014 [facility] [place] [facility] [address] [id number] [place] [address] 16 Nov, 2014 [facility] [place] [facility] [address] [id number] [place] [address] 16 Nov, 2014 [facility] [place] [facility] [address] [id number] [place] [address] 16 Nov, 2014 [facility] [place] [facility] [address] [id number] [place] [address] 16 Nov, 2014 [facility] [place] [facility] [address] [id number] [place] [address] 4446 16 Nov, 2014 [facility] [place] [facility] [address] [id number] [place] [address]- 8589 12 Nov, 2014 [facility] [place] [facility] [address] [id number] [place] [address] 5077 12 Nov, 2014 [facility] [place] [facility] [address] [id number] [place] [address]- 9949 Nov, [facility] [place] [facility] [address] [id number] [place] [address]- 2588 Nov, [facility] [place] [facility] [address] [id number] [place] [address]- 9146 05 Nov, 2014 [facility] [place] [facility] [address] [id number] [place] [address]- 6845 04 Nov, 2014 [facility] [place] [facility] [address] [id number] [place] [address]- 4596 Nov, [facility] [place] [facility] [address] [id number] [place] [address] 2124 Oct, [facility] [place] [facility] [address] [id number] [place] [address]- 5520 Oct, [facility] [place] [facility] [address] [id number] [place] [address]- 1506 Sep, [facility] [place] [facility] [address] [id number] [place] [address]- 2114 Sep, [facility] [place] [facility] [address] [id number] [place] [address]- 8123 Aug, [facility] [place] [facility] [address] [id number] [place] [address]- 7385 Aug, [facility] [place] [facility] [address] [id number] [place] [address]- 5220 Aug, [facility] [place] [facility] [address] [id number] [place] [address]- 7838 Aug, [facility] [place] [facility] [address] [id number] [place] [address]- 0073 Aug, [facility] [place] [facility] [address] [id number] [place] [address]- 6053 Aug, [facility] [place] [facility] [address] [id number] [place] [address]- 4121 Aug, [facility] [place] [facility] [address] [id number] [place] [address]- 8924 Aug, [facility] [place] [facility] [address] [id number] [place] [address]- 3392 Aug, [facility] [place] [facility] [address] [id number] [place] [address]- 6678 Jul, [facility] [place] [facility] [address] [id number], [place] [address] 3866 Jul, [facility] [place] [facility] [address] [id number] [place] [address]- 8063 Jul, [facility] [place] [facility] [address] [id number] [place] [address]- 4508 Jul, [facility] [place] [facility] [address] [id number] [place] [address]- 4166 Jul, [facility] [place] [facility] [address] [id number], [place] [address] 40[address] Jul, [facility] [place] [facility] [address] [id number] [place] [address]- 5631 Jul, [facility] [place] [facility] [address] [id number] [place] [address]- 5789 Jul, [facility] [place] [facility] [address] [id number] [place] [address]- 1294 Jul, [facility] [place] [facility] [address] [id number] [place] [address]- 5975 Jul, [facility] [place] [facility] [address] [id number] [place] [address]- 4783 Jun, [facility] [place] [facility] [address] [id number] [place] [address]- 5343 Jun, [facility] [place] [facility] [address] [id number] [place] [address]- 7031 Jun, [facility] [place] [facility] [address] [id number] [place] [address]- 1398 Jun, [facility] [place] [facility] [address] [id number] [place] [address]- 4818 Jun, [facility] [place] [facility] [address] [facility] [id number] [place] [address]- 3773 Jun, [facility] [place] [facility] [address] [id number] [place] [address]- 0224 30 May, 2014 [facility] [place] [facility] [address] [id number] [place] [address]- 9800 30 May, 2013 [facility] [place] [facility] [address] [id number] [place] [address]- 4066 29 May, 2014 [facility] [place] [facility] [address] [id number] [place] [address]- 5700 29 May, 2013 [facility] [place] [facility] [address] [facility] [id number] [place] [address]- 7505 24 May, 2013 [facility] [place] [facility] [address] [id number] [place] [address]- 2348 24 May, 2013 [facility] [place] [facility] [address] [id number] [place] [address]- 6316 22 May, 2013 [facility] [place] [facility] [address] [id number] [place] [address]- 0806 May, 2013 [facility] [place] [facility] [address] [id number] [place] [address]- 2360 05 May, 2013 [facility] [place] [facility] [address] [id number] [place] [address]- 1815 05 May, 2013 [facility] [place] [facility] [address] [id number] [place] [address]- 7582 May, 2013 [facility] [place] [facility] [address] [id number] [place] [address]- 2077 May, 2013 [facility] [place] [facility] [address] [id number] [place] [address]- 1322 Apr, [facility] [place] [facility] [address] [id number] [place] [address]- 7509 Apr, [facility] [place] [facility] [address] [id number] [place] [address]- 9445 Apr, [facility] [place] [facility] [address] [id number] [place] [address]- 1792 Apr, [facility] [place] [facility] [address] [id number] [place] [address]- 3243 Apr, [facility] [place] [facility] [address] [id number] [place] [address]- 8838 Apr, [facility] [place] [facility] [address] [id number] [place] [address]- 2236 Apr, [facility] [place] [facility] [address] [id number] [place] [address]- 9998 Apr, [facility] [place] [facility] [address] [id number] [place] [address]- 5203 Apr, [facility] [place] [facility] [address] [id number] [place] [address]- 4776 Apr, [facility] [place] [facility] [address] [id number] [place] [address]- 1818 Apr, [facility] [place] [facility] [address] [id number] [place] [address]- 9448 Apr, [facility] [place] [facility] [address] [id number] [place] [address]- 8187 Apr, [facility] [place] [facility] [address] [id number] [place] [address]- 1258 Apr, [facility] [place] [facility] [address] [id number] [place] [address]- 0069 Apr, [facility] [place] [facility] [address] [id number] [place] [address]- 3094 Apr, [facility] [place] [facility] [address] [id number] [place] [address]- 1112 Apr, [facility] [place] [facility] [address] [id number] [place] [address]- 3064 Apr, [facility] [place] [facility] [address] [id number] [place] [address]- 5343 Apr, [facility] [place] [facility] [address] [id number] [place] [address]- 3849 Apr, [facility] [place] [facility] [address] [id number], [place] [address]- 5711 Apr, [facility] [place] [facility] [address] [id number] [place] [address]- 9014 Apr, [facility] [place] [facility] [address] [id number] [place] [address]- 5387 Apr, [facility] [place] [facility] [address] [id number] [place] [address]- 4914 Mar, [facility] [place] [facility] [address] [id number] [place] [address]- 6055 30 Mar, 2014 [facility] [place] [facility] [address] [id number] [place] [address]- 3297 Mar, [facility] [place] [facility] [address] [id number] [place] [address]- 5952 Mar, [facility] [place] [facility] [address] [id number] [place] [address]- 1928 Mar, [facility] [place] [facility] [address] [id number] [place] [address]- 9766 Mar, [facility] [place] [facility] [address] [id number] [place] [address]- 6981 Mar, [facility] [place] [facility] [address] [id number] [place] [address]- 4157 Mar, [facility] [place] [facility] [address] [id number] [place] [address]- 7159 Mar, [facility] [place] [facility] [address] [id number] [place] [address]- 7350 Mar, [facility] [place] [facility] [address] [id number] [place] [address]- 2154 Mar, [facility] [place]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
--- OUTSIDE RECORDS SUMMARY | 2018-06-07 11:28 | XMS REPORT ---
Author Author QIANA JARA [facility] Address [address] [place] [address] Care Team Providers Care Business Planner Name Role Phone QIANA JARA Unavailable PROBLEMS Type Condition ICD9-CM Code IQV46-YV Code Onset Dates Condition Status SNOMED Code Problem Chest pain, unspecified type R07.9 Active 79782665 Problem Depression, unspecified depression type F32.9 Active 90953313 Problem Anxiety F41.9 Active 71688434 Problem BMI 30.0-30.9,adult Z68.30 Active 078061229 Problem Moderate episode of recurrent major depressive disorder F33.1 Active 573485362 Problem Thyroid cancer C73 Active 371912163 Problem Postoperative hypothyroidism E89.0 Active 76806621 Problem BMI 31.0-31.9,adult Z68.31 Active 605111012 Problem Other atopic dermatitis L20.89 Active 58657088 Problem Low back pain, unspecified back pain laterality, with sciatica presence unspecified M54.5 Active 567894849 Problem Neuropathy G62.9 Active 642923594 Problem Other chronic pain G89.29 Active 31779460 Problem Dysthymia F34.1 Active 24084381 Problem 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 Active 66480102 Problem Insomnia G47.00 Active 647126571 Problem Gastro-esophageal reflux disease without esophagitis K21.9 Active 196168725 Problem Rheumatoid arthritis, involving unspecified site, unspecified rheumatoid factor presence M06.9 Active 19399657 ALLERGIES Substance Reaction Event Type Date Status Penicillin V Potassium anaphylaxis Drug Allergy Apr, Active Klonopin Makes her cry all the time Drug Allergy Apr, Active ENCOUNTERS Encounter Location Date Diagnosis [facility] [address] [facility] [id number] [address] Jun, [facility] [address] [facility] [id number], [place] [address] May, [facility] [id number] [place] [address] 23176- 8868 May, Discharge from nipple N64.52 and Dysfunction of right eustachian tube H69.81 [facility] [id number] [place] [address] 98175- 2169 Apr, Low back pain, unspecified back pain laterality, with sciatica presence unspecified M54.5 [facility] [id number] [place] [address] 19752 -4280 Apr, Right ear pain H92.01 [place] [address] 79944- 3917 Apr, Postoperative hypothyroidism E89.0 [facility] [id number] [place] [address] 05867- 8797 Apr, Low back pain, unspecified back pain laterality, with sciatica presence unspecified M54.5 [place] [id number] [place] [address] 12779- 3915 Mar, Breast cancer screening Z12.39 and Discharge from nipple N64.52 [place] [id number] [place] [address] 29409- 5868 Mar, Low back pain, unspecified back pain laterality, with sciatica presence unspecified M54.5 [place] [id number] [place] [address] 76838- 6157 Mar, Low back pain, unspecified back pain laterality, with sciatica presence unspecified M54.5 ; Rheumatoid arthritis, involving unspecified site, unspecified rheumatoid factor presence M06.9 ; Breast cancer screening Z12.39 and Moderate episode of recurrent major depressive disorder F33.1 [facility] [id number] [place] [address] 91200- 0945 Feb, Low back pain, unspecified back pain laterality, with sciatica presence unspecified M54.5 [place] [id number] [place] [address] 14146- 9640 January, BMI 30.0-30.9,adult Z68.30 [place] [address] 34762- 6935 January, Low back pain, unspecified back pain laterality, with sciatica presence unspecified M54.5 [place] [address] 45221- 4124 January, [place] [address] 35789- 4824 Dec, Low back pain, unspecified back pain laterality, with sciatica presence unspecified M54.5 [place] [address] 57200- 3867 Nov, Low back pain, unspecified back pain laterality, with sciatica presence unspecified M54.5 [place] [address] 83693- 1235 Nov, [place] [id number] [place] [address] 28095- 7112 Nov, Low back pain, unspecified back pain laterality, with sciatica presence unspecified M54.5 ; Other chronic pain G89.29 ; Rheumatoid arthritis, involving unspecified site, unspecified rheumatoid factor presence M06.9 and Dysthymia F34.1 [place] [id number] [place] [address] 28978- 5629 Oct, Low back pain, unspecified back pain laterality, with sciatica presence unspecified M54.5 [place] [id number] [place] [address] 11146- 0212 Sep, Low back pain, unspecified back pain laterality, with sciatica presence unspecified M54.5 [facility] [id number] [place] [address] 09907 -0925 Sep, Fever R50.9 and URI, acute J06.9 [place] [address] [place] [address] [place] [address] 2890 Aug, [facility] [id number] [place] [address] 08553- 9306 Aug, Low back pain, unspecified back pain laterality, with sciatica presence unspecified M54.5 [facility] [id number] [place] [address] 16426- 0846 Jul, Low back pain, unspecified back pain laterality, with sciatica presence unspecified M54.5 [facility] [id number] [place] [address] 94776 -0191 15 Jul, 2017 Nausea R11.0 ; Fever and chills R50.9 ; UTI symptoms R39.9 and Hematuria, unspecified type R31.9 [facility] [id number] [place] [address] 68950- 7073 Jul, [facility] [address] 49986- 2578 Jun, Low back pain, unspecified back pain laterality, with sciatica presence unspecified M54.5 [place] [id number] [place] [address] 55662- 1128 Jun, BMI 31.0-31.9,adult Z68.31 [facility] [id number] [place] [address] 21722- 5090 Jun, Neuropathy G62.9 [facility] [id number] [place] [address] 85581- 6790 Jun, Low back pain, unspecified back pain laterality, with sciatica presence unspecified M54.5 [place] [id number] [place] [address] 51261- 4103 Jun, Encounter for immunization Z23 [facility] [id number] [place] [address] 94810- 4636 Jun, BMI 31.0-31.9,adult Z68.31 [facility] [id number] [place] [address] 02693- 3448 Jun, Low back pain, unspecified back pain laterality, with sciatica presence unspecified M54.5 [place] [id number] [place] [address] May, Low back pain, unspecified back pain laterality, with sciatica presence unspecified M54.5 ; Other chronic pain G89.29 ; Plantar fasciitis M72.2 ; Rheumatoid arthritis, involving unspecified site, unspecified rheumatoid factor presence M06.9 and History of alcohol abuse Z87.898 [place] [id number] [place] [address] 72857- 1137 May, Anxiety F41.9 and Low back pain, unspecified back pain laterality, with sciatica presence unspecified M54.5 [place] [id number] [place] [address] 99008- 2134 Apr, Anxiety F41.9 and Low back pain, unspecified back pain laterality, with sciatica presence unspecified M54.5 [place] [id number] [place] [address] 86677- 9790 Mar, Acute right-sided low back pain without sciatica M54.5 ; Rash R21 ; Right flank pain R10.9 ; Lipid screening Z13.220 ; Other chronic pain G89.29 ; 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 ; Postoperative hypothyroidism E89.0 and Breast cancer screening Z12.39 [place] [id number] [place] [address] 22361- 9871 Mar, Anxiety F41.9 and Low back pain, unspecified back pain laterality, with sciatica presence unspecified M54.5 [place] [id number] [place] [address] 44486- 1829 13 Mar, 2017 Acute right-sided low back pain without sciatica M54.5 [place] [id number] [place] [address] 60190- 1467 07 Mar, 2017 Anxiety F41.9 [place] [address] 83075- 4137 28 Feb, 2017 Right flank pain R10.9 and Anxiety F41.9 [place] [address] 00010- 5389 16 Feb, 2017 BMI 31.0-31.9,adult Z68.31 [place] [address] 72991- 4723 Feb, Low back pain, unspecified back pain laterality, with sciatica presence unspecified M54.5 and Anxiety F41.9 [facility] [address] 15337 -8183 January, Abscess of toe of right foot L02.611 and Other atopic dermatitis L20.89 [place] [address] 81805- 8547 January, Low back pain, unspecified back pain laterality, with sciatica presence unspecified M54.5 and Anxiety F41.9 [place] [address] 91594- 8736 Dec, Anxiety F41.9 and Low back pain, unspecified back pain laterality, with sciatica presence unspecified M54.5 [facility] [place] [address] 72103 -8875 Dec, Scabies B86 [place] [address] 17636- 8458 Nov, Rash R21 ; Other chronic pain G89.29 ; 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 ; Postoperative hypothyroidism E89.0 ; Breast cancer screening Z12.39 and Lipid screening Z13.220 [place] [address] 45368- 6640 Nov, Anxiety F41.9 and Low back pain, unspecified back pain laterality, with sciatica presence unspecified M54.5 [place] [address] 28423- 9370 Oct, Anxiety F41.9 and Low back pain, unspecified back pain laterality, with sciatica presence unspecified M54.5 [facility] [address] 25354- 8707 Sep, Anxiety F41.9 and Low back pain, unspecified back pain laterality, with sciatica presence unspecified M54.5 [facility] [address] 54191- 4208 Sep, Anxiety F41.9 [facility] [address] 16008- 5131 Sep, Gastro-esophageal reflux disease without esophagitis K21.9 [facility] [address] [id number] Sep, Dental examination Z01.20 [place] [address] 30615- 9447 Sep, Low back pain, unspecified back pain laterality, with sciatica presence unspecified M54.5 and Postoperative hypothyroidism E89.0 [place] [address] 33517- 1209 Aug, Anxiety F41.9 [facility] [address] 53197- 9380 Aug, [facility] [address] 43726- 9996 Aug, Low back pain, unspecified back pain laterality, with sciatica presence unspecified M54.5 ; Other chronic pain G89.29 ; Thyroid cancer C73 and Postoperative hypothyroidism E89.0 [facility] [address] 22464- 9163 Jul, [facility] [address] 82589- 5367 Jul, Anxiety F41.9 [facility] [address] 01947- 1502 Jul, [place] [id number] [place] [address] 85932- 5817 Jul, BMI 29.0-29.9,adult Z68.29 [place] [address] 37676- 9641 Jul, [place] [address] 53277- 3043 Jul, BMI 30.0-30.9,adult Z68.30 [place] [address] 94749- 9882 Jul, Low back pain, unspecified back pain laterality, with sciatica presence unspecified M54.5 and Anxiety F41.9 [place] [address] 84088- 2810 Jun, 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 [place] [address] 47768- 8782 Jun, BMI 30.0-30.9,adult Z68.30 [place] [address] 36754- 1021 Jun, [place] [address] 31325- 8647 Jun, 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 ; Dysthymia F34.1 ; Encounter for immunization Z23 and Other chronic pain G89.29 [place] [address] 18170- 1886 Jun, Low back pain, unspecified back pain laterality, with sciatica presence unspecified M54.5 [place] [address] 24752- 8815 Jun, BMI 30.0-30.9,adult Z68.30 [place] [address] 08681- 1837 Jun, Anxiety F41.9 [place] [id number] [place] [address] 54875- 0154 May, 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 [place] [address] 11663- 8664 May, Constipation, unspecified constipation type K59.00 [place] [address] 16916- 8177 May, Low back pain, unspecified back pain laterality, with sciatica presence unspecified M54.5 [place] [address] 61143- 7388 May, [place] [address] 723418- 7979 May, Constipation, unspecified constipation type K59.00 [place] [address] 90255- 8959 May, Anxiety F41.9 [place] [address] 59922- 9030 Apr, BMI 31.0-31.9,adult Z68.31 [place] [address] 00886- 6180 Apr, Thyroid goiter E04.9 [place] [address] 65063- 3447 Apr, [place] [address] 843774- 0705 Apr, Low back pain, unspecified back pain laterality, with sciatica presence unspecified M54.5 [place] [address] 69420- 2485 Apr, [place] [address] 00131- 9650 Apr, Constipation, unspecified constipation type K59.00 ; Thyroid nodule E04.1 ; Family history of colon cancer Z80.0 and 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 [facility] [id number] [place] [address] 06829- 6087 Apr, Anxiety F41.9 [facility] [id number] [place] [address] 47664- 1301 Mar, [facility] [id number] [place] [address] 68950- 9619 Mar, Low back pain, unspecified back pain laterality, with sciatica presence unspecified M54.5 [facility] [id number] [place] [address] 74845- 0628 Mar, BMI 32.0-32.9,adult Z68.32 [facility] [id number] [place] [address] 46298- 6516 Feb, Anxiety F41.9 [facility] [id number] [place] [address] 66008- 7044 Feb, Depression, unspecified depression type F32.9 [facility] [id number] [place] [address] 47972- 7381 Feb, BMI 32.0-32.9,adult Z68.32 [facility] [id number] [place] [address] 68340- 2557 Feb, Low back pain, unspecified back pain laterality, with sciatica presence unspecified M54.5 [facility] [id number] [place] [address] 36264- 3454 Feb, [facility] [id number] [place] [address] 27697- 5876 Feb, BMI 32.0-32.9,adult Z68.32 [facility] [id number] [place] [address] 07294- 2684 Feb, Anxiety F41.9 [facility] [id number] [place] [address] 55496- 2379 January, BMI 32.0-32.9,adult Z68.32 [place] [address] 42139- 0851 January, Low back pain, unspecified back pain laterality, with sciatica presence unspecified M54.5 ; Other chronic pain G89.29 ; Weight gain R63.5 and Rheumatoid arthritis, involving unspecified site, unspecified rheumatoid factor presence M06.9 [place] [address] 56422- 9124 January, Low back pain, unspecified back pain laterality, with sciatica presence unspecified M54.5 [place] [address] 82606- 3531 January, BMI 32.0-32.9,adult Z68.32 [place] [address] 94837- 0745 January, BMI 32.0-32.9,adult Z68.32 [place] [address] 87269- 4098 January, BMI 32.0-32.9,adult Z68.32 [place] [address] 47528- 1494 Dec, Insomnia G47.00 and Dysthymia F34.1 [place] [address] 96647- 6474 Dec, [place] [address] 87826- 7167 Dec, Other chronic pain G89.29 ; Neuropathy G62.9 and Dysthymia F34.1 [place] [address] 87166- 4417 Dec, [place] [address] 51711- 5530 Nov, [place] [address] [place] 54268338- 3929 Nov, [facility] [id number] [place] [address] 95522- 9574 Nov, [facility] [id number] [place] [address] 16420- 5530 Oct, [facility] [id number] [place] [address] 53178- 5451 Oct, [facility] [address] 79079- 6693 Oct, Family history of diabetes mellitus Z83.3 [facility] [address] 84688- 9276 Oct, [facility] [address] 59557- 5109 Sep, [facility] [address] 53640- 7586 Sep, Eye pain, right H57.11 and Other chronic pain G89.29 [facility] [id number] [place] [address] 17076- 0883 Sep, [facility] [id number] [place] [address] 01439- 1594 Sep, [facility] [id number] [place] [address] 48053- 6692 Sep, 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 ; Neuropathy G62.9 ; Low back pain, unspecified back pain laterality, with sciatica presence unspecified M54.5 ; Gastro-esophageal reflux disease without esophagitis K21.9 and Encounter for long-term (current) use of other medications V58.69 [facility] [id number] [place] [address] 00075- 0745 Sep, [facility] [id number] [place] [address] 66969- 3570 Sep, [facility] [address] 32330- 1961 Sep, [facility] [address]- 1046 Sep, [facility] [address] 9780 Aug, [facility] [address]- 6303 Aug, Family history of diabetes mellitus Z83.3 [facility] [address]- 5815 21 Aug, 2015 [facility] [id number] [place] [address] 674523- 5042 17 Aug, 2015 [facility] [address]- 7983 16 Aug, 2015 Family history of diabetes mellitus Z83.3 [facility] [address] [place] [address] 42822- 5947 14 Aug, 2015 Weight gain R63.5 ; Edema, unspecified R60.9 ; Family history of diabetes mellitus Z83.3 and Gastroesophageal reflux disease with esophagitis K21.0 [facility] [address] [address]- 1842 14 Aug, 2015 [facility] [address] [address]- 8994 Aug, [facility] [address] [address]- 8474 Jul, [facility] [address] [address]- 8560 Jul, [facility] [address]- 1455 Jul, [facility] [address] 3076 Jun, [facility] [address] [place] [address] 04071- 9886 Jun, Nose pain J34.89 ; Encounter for immunization Z23 ; Screening for breast cancer Z12.39 and Encounter for long-term (current) use of other medications V58.69 [facility] [id number] [address]- 9677 Jun, [facility] [id number] [place] [address] 70676- 1280 May, [facility] [id number] [place] [address] 07434- 6800 18 May, 2015 [facility] [id number] [place] [address] 58927- 0549 May, [facility] [id number] [place] [address] 51112- 2119 May, [facility] [id number] [place] [address] 80785- 3185 May, [facility] [id number] [place] [address] 36224- 7993 May, [facility] [id number] [place] [address] 79811- 7832 May, [facility] [id number] [place] [address] 29810- 6660 Apr, [facility] [id number] [place] [address] 61325- 7802 Apr, [facility] [id number] [place] [address] 38138- 6956 Apr, [facility] [id number] [place] [address] 34625- 9406 Mar, [facility] [id number], [place] [address]- 9067 Mar, [facility] [id number] [place] [address] 44405- 4384 Mar, Lesion of left shoulder 709.9 [facility] [address], [place] [address]- 5462 Mar, [facility] [address], [place] [address]- 9296 Mar, [facility] [address] [address]- 6968 Mar, [facility] [address] [address]- 0516 Feb, [facility] [address] [address]- 5867 Feb, [facility] [address] [address]- 8883 Feb, Unspecified backache 724.5 ; Weight gain 783.1 ; Hypothyroid 244.9 ; Edema 782.3 and Diaphoresis 780.8 [facility] [address] [address]- 3022 Feb, [facility] [address] [address]- 7904 Feb, [facility] [address] [address]- 5559 Feb, [facility] [address], [place] [address]- 0843 Feb, [facility] [address] [address]- 2459 Feb, [facility] [address], [place] [address]- 7380 January, [facility] [address], [place] [address]- 3727 January, [facility] [id number] [address]- 5280 Dec, [facility] [id number] [place] [address]- 0866 13 Dec, 2014 [facility] [place] [facility] [address] [id number] [place] [address]- 7898 16 Nov, 2014 [facility] [place] [facility] [address] [id number] [place] [address] 2546 16 Nov, 2014 [facility] [place] [facility] [address] [id number] [place] [address]- 6786 16 Nov, 2014 [facility] [place] [facility] [address] [id number] [place] [address] 16 Nov, 2014 [facility] [place] [facility] [address] [id number] [place] [address] 16 Nov, 2014 [facility] [place] [facility] [address] [id number] [place] [address] 16 Nov, 2014 [facility] [place] [facility] [address] [id number] [place] [address] 12 Nov, 2014 [facility] [place] [facility] [address] [id number] [place] [address] 12 Nov, 2014 [facility] [place] [facility] [address] [id number] [place] [address] Nov, [facility] [place] [facility] [address] [id number] [place] [address] Nov, [facility] [place] [facility] [address] [id number] [place] [address] 05 Nov, 2014 [facility] [place] [facility] [address] [id number] [place] [address] Nov, [facility] [place] [facility] [address] [id number] [place] [address] 04 Nov, 2014 [facility] [place] [facility] [address] [id number] [place] [address] 11 Oct, 2014 [facility] [place] [facility] [address] [id number] [place] [address] Oct, [facility] [place] [facility] [address] [id number] [place] [place] [address] Sep, [facility] [place] [facility] [address] [id number] [place] [address] Sep, [facility] [place] [facility] [address] [id number] [place] [address] 0158 Aug, [facility] [place] [facility] [address] [id number] [place] [address] 8262 Aug, [facility] [place] [facility] [address] [id number] [place] [address]- 1642 Aug, [facility] [place] [facility] [address] [id number] [place] [address] 8923 Aug, [facility] [place] [facility] [address] [id number] [place] [address]- 5512 Aug, [facility] [place] [facility] [address] [id number] [place] [address]- 7843 Aug, [facility] [place] [facility] [address] [id number] [place] [address]- 8723 Aug, [facility] [place] [facility] [address] [id number] [place] [address]- 2669 Aug, [facility] [place] [facility] [address] [id number] [place] [address]- 5380 Aug, [facility] [place] [facility] [address] [id number] [place] [address]- 2784 Jul, [facility] [place] [facility] [address] [id number] [place] [address]- 6530 Jul, [facility] [place] [facility] [address] [id number] [place] [address] 5731 Jul, [facility] [place] [facility] [address] [id number] [place] [address]- 3867 Jul, [facility] [place] [facility] [address] [id number] [place] [address]- 6989 Jul, [facility] [place] [facility] [address] [id number] [place] [address]- 0663 Jul, [facility] [place] [facility] [address] [id number] [place] [address]- 3351 Jul, [facility] [place] [facility] [address] [id number] [place] [address]- 1306 Jul, [facility] [place] [facility] [address] [id number] [place] [address]- 3062 Jul, [facility] [place] [facility] [address] [id number] [place] [address]- 1667 Jul, [facility] [place] [facility] [address] [id number] [place] [address]- 0402 Jun, [facility] [place] [facility] [address] [id number] [place] [address]- 1805 Jun, [facility] [place] [facility] [address] [id number] [place] [address]- 7959 Jun, [facility] [place] [facility] [address] [id number] [place] [address]- 9414 Jun, [facility] [place] [facility] [address] [facility] [id number] [place] [address] Jun, [facility] [place] [facility] [address] [id number] [place] [address]- 9239 Jun, [facility] [place] [facility] [address] [id number] [place] [address]- 6530 30 May, 2014 [facility] [place] [facility] [address] [id number] [place] [address]- 8084 30 May, 2014 [facility] [place] [facility] [address] [id number] [place] [address]- 7463 29 May, 2014 [facility] [place] [facility] [address] [id number] [place] [address]- 6393 29 May, 2014 [facility] [place] [facility] [address] [id number] [place] [address]- 8355 24 May, 2013 [facility] [place] [facility] [address] [id number] [place] [address]- 8244 24 May, 2013 [facility] [place] [facility] [address] [id number] [place] [address]- 5793 May, 2013 [facility] [place] [facility] [address] [id number] [place] [address]- 8622 May, 2013 [facility] [place] [facility] [address] [id number] [place] [address]- 5195 May, 2013 [facility] [place] [facility] [address] [id number] [place] [address]- 9764 May, 2013 [facility] [place] [facility] [address] [id number] [place] [address]- 0031 May, 2013 [facility] [place] [facility] [address] [id number] [place] [address]- 2978 May, [facility] [place] [facility] [address] [id number] [place] [address]- 5700 Apr, [facility] [place] [facility] [address] [id number] [place] [address]- 0493 Apr, [facility] [place] [facility] [address] [id number] [place] [address]- 4758 Apr, [facility] [place] [facility] [address] [id number] [place] [address]- 0241 Apr, [facility] [place] [facility] [address] [id number] [place] [address]- 4074 Apr, [facility] [place] [facility] [address] [id number] [place] [address]- 4486 Apr, [facility] [place] [facility] [address] [id number] [place] [address]- 3889 Apr, [facility] [place] [facility] [address] [id number] [place] [address]- 6169 Apr, [facility] [place] [facility] [address] [id number] [place] [address]- 3120 Apr, [facility] [place] [facility] [address] [id number] [place] [address]- 3728 Apr, [facility] [place] [facility] [address] [id number] [place] [address]- 0620 Apr, [facility] [place] [facility] [address] [id number] [place] [address]- 3109 Apr, [facility] [place] [facility] [address] [id number] [place] [address]- 1091 Apr, [facility] [place] [facility] [address] [id number] [place] [address]- 1048 Apr, [facility] [place] [facility] [address] [id number] [place] [address]- 1202 Apr, [facility] [place] [facility] [address] [id number] [place] [address]- 3335 Apr, [facility] [place] [facility] [address] [id number] [place] [address]- 6371 Apr, [facility] [place] [facility] [address] [id number] [place] [address]- 9847 Apr, [facility] [place] [facility] [address] [id number] [place] [address]- 8127 Apr, [facility] [place] [facility] [address] [id number] [address] 6306 Apr, [facility] [place] [facility] [address] [id number] [place] [address]- 5544 Apr, [facility] [place] [facility] [address] [id number] [place] [address]- 0728 Apr, [facility] [place] [facility] [address] [id number] [place] [address]- 0515 Apr, [facility] [place] [facility] [address] [id number] [place] [address]- 3405 30 Mar, 2014 [facility] [place] [facility] [address] [id number] [place] [address]- 1320 Mar, [facility] [place] [facility] [address] [id number] [place] [address]- 1686 Mar, [facility] [place] [facility] [address] [id number] [place] [address]- 0694 Mar, [facility] [place] [facility] [address] [id number] [place] [address]- 4145 Mar, [facility] [place] [facility] [address] [id number] [place] [address]- 9938 Mar, [facility] [place] [facility] [address] [id number] [place] [address]- 5627 Mar, [facility] [place] [facility] [address] [id number] [place] [address]- 0974 Mar, [facility] [place] [facility] [address] [id number] [place] [address]- 4434 Mar, [facility] [place] [facility] [address] [id number] [place] [address]- 7559 Mar, [facility] [place] [facility] [address] [id number] [place] [address]- 6641 Mar, [facility] [place] [facility] [address] [id number] [place] [address]- 1865 Mar, [facility] [place] [facility] [address] [id number] [place]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
--- OUTSIDE RECORDS SUMMARY | 2018-06-07 11:29 | XMS REPORT ---
Author Author ELISEO BENDER [facility] Address [address] [place] [address] Care Team Providers Care Landfill Attendant Name Role Phone ELISEO BENDER Unavailable PROBLEMS Type Condition ICD9-CM Code [id number] Code Onset Dates Condition Status SNOMED Code Problem Chest pain, unspecified type R07.9 Active 39025762 Problem Depression, unspecified depression type F32.9 Active 25205536 Problem Anxiety F41.9 Active 02355250 Problem BMI 30.0-30.9,adult Z68.30 Active 810050470 Problem Moderate episode of recurrent major depressive disorder F33.1 Active 307367441 Problem Thyroid cancer C73 Active 286094614 Problem Postoperative hypothyroidism E89.0 Active 88510974 Problem BMI 31.0-31.9,adult Z68.31 Active 577675264 Problem Other atopic dermatitis L20.89 Active 72338742 Problem Low back pain, unspecified back pain laterality, with sciatica presence unspecified M54.5 Active 441471758 Problem Neuropathy G62.9 Active 812836027 Problem Other chronic pain G89.29 Active 56824249 Problem Dysthymia F34.1 Active 56811427 Problem 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 Active 27768107 Problem Insomnia G47.00 Active 238417616 Problem Gastro-esophageal reflux disease without esophagitis K21.9 Active 593011670 Problem Rheumatoid arthritis, involving unspecified site, unspecified rheumatoid factor presence M06.9 Active 20147478 ALLERGIES No Information ENCOUNTERS Encounter Location Date Diagnosis [facility] [address] [facility] [id number] [address] May, [facility] [address] [id number] [address] Apr, Low back pain, unspecified back pain laterality, with sciatica presence unspecified M54.5 [facility] [id number] [place] [address] 46676 -3632 Apr, Right ear pain H92.01 [place] [address] 31010- 9691 Apr, Postoperative hypothyroidism E89.0 [place] [address] 74671- 9452 Apr, Low back pain, unspecified back pain laterality, with sciatica presence unspecified M54.5 [place] [id number] [place] [address] 30301- 1670 Mar, Breast cancer screening Z12.39 and Discharge from nipple N64.52 [place] [id number] [place] [address] 70773- 8216 Mar, Low back pain, unspecified back pain laterality, with sciatica presence unspecified M54.5 [place] [id number] [place] [address] 85173- 8525 Mar, Low back pain, unspecified back pain laterality, with sciatica presence unspecified M54.5 ; Rheumatoid arthritis, involving unspecified site, unspecified rheumatoid factor presence M06.9 ; Breast cancer screening Z12.39 and Moderate episode of recurrent major depressive disorder F33.1 [place] [id number] [place] [address] 00650- 5465 Feb, Low back pain, unspecified back pain laterality, with sciatica presence unspecified M54.5 [place] [id number] [place] [address] 87771- 5423 January, BMI 30.0-30.9,adult Z68.30 [place] [address] 70679- 2338 January, Low back pain, unspecified back pain laterality, with sciatica presence unspecified M54.5 [place] [id number] [place] [address] 24384- 0391 January, [place] [id number] [place] [address] 95154- 3123 Dec, Low back pain, unspecified back pain laterality, with sciatica presence unspecified M54.5 [place] [id number] [place] [address] 63721- 9461 Nov, Low back pain, unspecified back pain laterality, with sciatica presence unspecified M54.5 [place] [address] 24771- 1212 Nov, [place] [address] 44436- 6695 Nov, Low back pain, unspecified back pain laterality, with sciatica presence unspecified M54.5 ; Other chronic pain G89.29 ; Rheumatoid arthritis, involving unspecified site, unspecified rheumatoid factor presence M06.9 and Dysthymia F34.1 [place] [id number] [place] [address] 45571- 1090 Oct, Low back pain, unspecified back pain laterality, with sciatica presence unspecified M54.5 [place] [address] 58152- 7570 Sep, Low back pain, unspecified back pain laterality, with sciatica presence unspecified M54.5 [facility] [id number] [place] [address] 63232 -1153 Sep, Fever R50.9 and URI, acute J06.9 [facility] [id number] [place] [address] 65082- 4235 Aug, [place] [address] 66820- 2223 Aug, Low back pain, unspecified back pain laterality, with sciatica presence unspecified M54.5 [place] [id number] [place] [address] 02916- 9623 Jul, Low back pain, unspecified back pain laterality, with sciatica presence unspecified M54.5 [facility] [id number] [place] [address] 61219 -7374 Jul, Nausea R11.0 ; Fever and chills R50.9 ; UTI symptoms R39.9 and Hematuria, unspecified type R31.9 [place] [id number] [place] [address] 15758- 5894 Jul, [place] [address] 37183- 1086 Jun, Low back pain, unspecified back pain laterality, with sciatica presence unspecified M54.5 [place] [address] 68137- 3702 Jun, BMI 31.0-31.9,adult Z68.31 [place] [id number] [place] [address] 43266- 3880 Jun, Neuropathy G62.9 [place] [address] 38939- 9435 Jun, Low back pain, unspecified back pain laterality, with sciatica presence unspecified M54.5 [place] [id number] [place] [address] 86608- 7461 Jun, Encounter for immunization Z23 [place] [id number] [place] [address] 05342- 5941 Jun, BMI 31.0-31.9,adult Z68.31 [place] [address] 86223- 3839 Jun, Low back pain, unspecified back pain laterality, with sciatica presence unspecified M54.5 [place] [id number] [place] [address] 17907- 0028 May, Low back pain, unspecified back pain laterality, with sciatica presence unspecified M54.5 ; Other chronic pain G89.29 ; Plantar fasciitis M72.2 ; Rheumatoid arthritis, involving unspecified site, unspecified rheumatoid factor presence M06.9 and History of alcohol abuse Z87.898 [place] [address] 76271- 5845 08 May, 2017 Anxiety F41.9 and Low back pain, unspecified back pain laterality, with sciatica presence unspecified M54.5 [place] [address] 47156- 8152 Apr, Anxiety F41.9 and Low back pain, unspecified back pain laterality, with sciatica presence unspecified M54.5 [place] [address] 60945- 5146 18 Mar, 2017 Acute right-sided low back pain without sciatica M54.5 ; Rash R21 ; Right flank pain R10.9 ; Lipid screening Z13.220 ; Other chronic pain G89.29 ; 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 ; Postoperative hypothyroidism E89.0 and Breast cancer screening Z12.39 [place] [address] 36888- 2152 14 Mar, 2017 Anxiety F41.9 and Low back pain, unspecified back pain laterality, with sciatica presence unspecified M54.5 [place] [address] 15359- 8247 13 Mar, 2017 Acute right-sided low back pain without sciatica M54.5 [place] [address] 22217- 0067 Mar, Anxiety F41.9 [place] [address] 22637- 1981 28 Feb, 2017 Right flank pain R10.9 and Anxiety F41.9 [place] [address] 96165- 7866 16 Feb, 2017 BMI 31.0-31.9,adult Z68.31 [place] [address] 94735- 2331 16 Feb, 2017 Low back pain, unspecified back pain laterality, with sciatica presence unspecified M54.5 and Anxiety F41.9 [facility] [address] 67174 -9042 January, Abscess of toe of right foot L02.611 and Other atopic dermatitis L20.89 [place] [address] 69383- 0464 January, Low back pain, unspecified back pain laterality, with sciatica presence unspecified M54.5 and Anxiety F41.9 [place] [address] 04100- 3028 Dec, Anxiety F41.9 and Low back pain, unspecified back pain laterality, with sciatica presence unspecified M54.5 [facility] [place] [address] 79615 3664 Dec, Scabies B86 [place] [address] [place] [id number] 712 Nov, Rash R21 ; Other chronic pain G89.29 ; 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 ; Postoperative hypothyroidism E89.0 ; Breast cancer screening Z12.39 and Lipid screening Z13.220 [place] [address] 40910- 0794 Nov, Anxiety F41.9 and Low back pain, unspecified back pain laterality, with sciatica presence unspecified M54.5 [place] [address] 23467- 5558 Oct, Anxiety F41.9 and Low back pain, unspecified back pain laterality, with sciatica presence unspecified M54.5 [place] [address] [place] [address] [id number]- 1300 Sep, Anxiety F41.9 and Low back pain, unspecified back pain laterality, with sciatica presence unspecified M54.5 [place] [address] 40744- 2249 Sep, Anxiety F41.9 [facility] [address] [place] [address] 60623- 3518 Sep, Gastro-esophageal reflux disease without esophagitis K21.9 [facility] [id number] [place] [address] [id number] 09 Sep, 2016 Dental examination Z01.20 [facility] [address] 15194- 0945 02 Sep, 2016 Low back pain, unspecified back pain laterality, with sciatica presence unspecified M54.5 and Postoperative hypothyroidism E89.0 [facility] [id number] [place] [address] 70488- 3160 Aug, Anxiety F41.9 [facility] [address] 82617- 4715 Aug, [facility] [address] 91583- 6511 Aug, Low back pain, unspecified back pain laterality, with sciatica presence unspecified M54.5 ; Other chronic pain G89.29 ; Thyroid cancer C73 and Postoperative hypothyroidism E89.0 [facility] [id number] [place] [address] 73789- 3404 Jul, [facility] [id number] [place] [address] 35752- 3752 Jul, Anxiety F41.9 [facility] [id number] [place] [address] 51532- 0276 Jul, [facility] [id number] [place] [address] 04108- 2950 18 Jul, 2016 BMI 29.0-29.9,adult Z68.29 [facility] [id number] [place] [address] 94077- 6358 17 Jul, 2016 [facility] [id number] [place] [address] 47860- 6641 08 Jul, 2016 BMI 30.0-30.9,adult Z68.30 [place] [id number] [place] [address] 34187- 7985 Jul, Low back pain, unspecified back pain laterality, with sciatica presence unspecified M54.5 and Anxiety F41.9 [place] [address] 24279- 9219 Jun, 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 [place] [address] 723432- 4571 Jun, BMI 30.0-30.9,adult Z68.30 [place] [address] 230424- 4476 Jun, [place] [address] 49903- 5482 Jun, 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 ; Dysthymia F34.1 ; Encounter for immunization Z23 and Other chronic pain G89.29 [place] [address] 02869- 0747 Jun, Low back pain, unspecified back pain laterality, with sciatica presence unspecified M54.5 [place] [address] 86338- 8851 Jun, BMI 30.0-30.9,adult Z68.30 [place] [address] 46368- 7851 Jun, Anxiety F41.9 [place] [id number] [place] [address] 67929- 4054 May, 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 [place] [address] 24304- 2386 May, Constipation, unspecified constipation type K59.00 [place] [address] 76699- 3886 May, Low back pain, unspecified back pain laterality, with sciatica presence unspecified M54.5 [place] [id number] [place] [address] 70609- 5656 May, [place] [address] 49755- 2274 May, Constipation, unspecified constipation type K59.00 [place] [address] 19584- 2456 May, Anxiety F41.9 [place] [address] 01681- 7198 Apr, BMI 31.0-31.9,adult Z68.31 [place] [address] 63323- 4487 Apr, Thyroid goiter E04.9 [place] [address] 37710- 4133 Apr, [place] [address] 36378- 3606 Apr, Low back pain, unspecified back pain laterality, with sciatica presence unspecified M54.5 [place] [address] 23904- 0486 Apr, [place] [address] 15819- 1242 Apr, Constipation, unspecified constipation type K59.00 ; Thyroid nodule E04.1 ; Family history of colon cancer Z80.0 and 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 [place] [address] 72408- 5428 Apr, Anxiety F41.9 [place] [address] 60193- 6158 Mar, [place] [address] 85638- 1016 Mar, Low back pain, unspecified back pain laterality, with sciatica presence unspecified M54.5 [place] [address] [place] [address] 64713- 9200 Mar, BMI 32.0-32.9,adult Z68.32 [place] [id number] [place] [address] 84210- 8443 Feb, Anxiety F41.9 [place] [id number] [place] [address] 30192- 1075 Feb, Depression, unspecified depression type F32.9 [place] [id number] [place] [address] 75611- 3760 Feb, BMI 32.0-32.9,adult Z68.32 [place] [id number] [place] [address] 62704- 2872 Feb, Low back pain, unspecified back pain laterality, with sciatica presence unspecified M54.5 [place] [id number] [place] [address] 81702- 4272 Feb, [place] [id number] [place] [address] 79502- 0301 Feb, BMI 32.0-32.9,adult Z68.32 [place] [id number] [place] [address] 81094- 1831 Feb, Anxiety F41.9 [place] [id number] [place] [address] 79856- 6718 January, BMI 32.0-32.9,adult Z68.32 [place] [id number] [place] [address] 58949- 7499 January, Low back pain, unspecified back pain laterality, with sciatica presence unspecified M54.5 ; Other chronic pain G89.29 ; Weight gain R63.5 and Rheumatoid arthritis, involving unspecified site, unspecified rheumatoid factor presence M06.9 [place] [id number] [place] [address] 33255- 0977 January, Low back pain, unspecified back pain laterality, with sciatica presence unspecified M54.5 [facility] [id number] [place] [address] 15875- 2717 January, BMI 32.0-32.9,adult Z68.32 [facility] [id number] [place] [address] 87698- 1927 January, BMI 32.0-32.9,adult Z68.32 [facility] [address] 08060- 4621 January, BMI 32.0-32.9,adult Z68.32 [facility] [address] 80530- 3620 Dec, Insomnia G47.00 and Dysthymia F34.1 [place] [address] 32889- 9242 Dec, [facility] [address] 43727- 7356 Dec, Other chronic pain G89.29 ; Neuropathy G62.9 and Dysthymia F34.1 [facility] [id number] [place] [address] 62196- 5978 Dec, [facility] [id number] [place] [address] 76237- 0689 Nov, [facility] [id number] [place] [address] 40697- 9666 Nov, [facility] [address] 07109- 0788 Nov, [facility] [address] 39246- 0434 Oct, [facility] [id number] [place] [address] 17018- 3670 Oct, [facility] [address] [place] [address]- 2441 Oct, Family history of diabetes mellitus Z83.3 [facility] [id number] [place] [address] 83306- 9680 Oct, [facility] [id number] [place] [address] 49282- 0214 Sep, [facility] [address] 50622- 7563 Sep, Eye pain, right H57.11 and Other chronic pain G89.29 [facility] [id number] [place] [address] 68780- 6969 Sep, [facility] [id number] [place] [address] 86498- 6891 Sep, [place] [id number] [place] [address] 08897- 9856 Sep, 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 ; Neuropathy G62.9 ; Low back pain, unspecified back pain laterality, with sciatica presence unspecified M54.5 ; Gastro-esophageal reflux disease without esophagitis K21.9 and Encounter for long-term (current) use of other medications V58.69 [facility] [id number] [place] [address] 37848- 4525 Sep, [facility] [id number] [place] [address] 26438- 0938 Sep, [facility] [id number] [place] [address] 88437- 5952 Sep, [facility] [id number] [place] [address] 55574- 4609 Sep, [facility] [id number] [place] [address] 80596- 3475 Aug, [facility] [address] [place] [address] 80306- 3602 Aug, Family history of diabetes mellitus Z83.3 [facility] [address] [place] [address] 40196- 3227 Aug, [facility] [id number] [place] [address] 06987- 4569 17 Aug, 2015 [facility] [id number] [place] [address] 81090- 6271 16 Aug, 2015 Family history of diabetes mellitus Z83.3 [facility] [id number] [place] [address] 12258- 6022 14 Aug, 2015 Weight gain R63.5 ; Edema, unspecified R60.9 ; Family history of diabetes mellitus Z83.3 and Gastroesophageal reflux disease with esophagitis K21.0 [place] [id number] [place] [address] 85729- 2495 14 Aug, 2015 [place] [id number] [place] [address] 14558- 7921 Aug, [facility] [id number] [place] [address] 25755- 2960 Jul, [place] [id number] [place] [address] 24330- 3760 Jul, [facility] [id number] [place] [address] 78255- 9698 Jul, [place] [id number] [place] [address] 60354- 0818 Jun, [facility] [id number] [place] [address] 48384- 0492 Jun, Nose pain J34.89 ; Encounter for immunization Z23 ; Screening for breast cancer Z12.39 and Encounter for long-term (current) use of other medications V58.69 [facility] [id number] [place] [address] 73231- 5341 Jun, [facility] [id number] [place] [address] 44212- 0742 May, [facility] [place] [facility] [address] [id number] [place] [address]- 0939 18 May, 2014 [facility] [place] [facility] [address] [id number] [place] [address]- 1512 May, 2014 [facility] [place] [facility] [address] [id number] [place] [address]- 7988 17 May, 2014 [facility] [place] [facility] [address] [id number] [place] [address]- 1131 10 May, 2014 [facility] [place] [facility] [address] [id number] [place] [address]- 2515 May, 2014 [facility] [place] [facility] [address] [id number] [place] [address]- 3006 May, [facility] [place] [facility] [address] [id number] [place] [address]- 2086 Apr, [facility] [place] [facility] [address] [id number] [place] [address]- 9886 Apr, [facility] [place] [facility] [address] [id number] [place] [address]- 6772 Apr, [facility] [place] [facility] [address] [facility] [id number] [place] [address]- 5144 Mar, [facility] [place] [facility] [address] [facility] [id number] [place] [address]- 0864 Mar, [facility] [place] [facility] [address] [facility] [id number] [place] [address]- 0880 Mar, Lesion of left shoulder 709.9 [facility] [place] [facility] [address] [id number] [place] [address]- 1971 Mar, [facility] [place] [facility] [address] [facility] [id number] [place] [address]- 4329 Mar, [facility] [place] [facility] [address] [facility] [id number] [place] [address]- 5646 Mar, [facility] [place] [facility] [id number] [address]- 3369 Feb, [facility] [address] [address]- 8572 Feb, [facility] [address] [address]- 8647 Feb, Unspecified backache 724.5 ; Weight gain 783.1 ; Hypothyroid 244.9 ; Edema 782.3 and Diaphoresis 780.8 [facility] [address] [address]- 1711 Feb, [facility] [id number] [place] [address] 86699- 0349 Feb, [facility] [id number] [address]- 4779 Feb, [facility] [id number] [address]- 8316 Feb, [facility] [id number] [address]- 9444 Feb, [facility] [id number] [address]- 3431 January, [facility] [id number] [address]- 3523 January, [facility] [id number] [address]- 0155 14 Dec, 2014 [facility] [id number] [address]- 7547 13 Dec, 2014 [facility] [id number] [address]- 0221 16 Nov, 2014 [facility] [place] [facility] [address] [address]- 0738 16 Nov, 2014 [facility] [id number] [address]- 7622 Nov, [facility] [place] [facility] [address] [id number] [place] [address] 16 Nov, 2014 [facility] [place] [facility] [address] [id number] [place] [address] 16 Nov, 2014 [facility] [place] [facility] [address] [id number] [place] [address] 16 Nov, 2014 [facility] [place] [facility] [address] [id number] [place] [address] 12 Nov, 2014 [facility] [place] [facility] [address] [id number] [place] [address] Nov, [facility] [place] [facility] [address] [id number] [place] [address] Nov, [facility] [place] [facility] [address] [id number] [place] [address] Nov, [facility] [place] [facility] [address] [id number] [place] [address] 05 Nov, 2014 [facility] [place] [facility] [address] [id number] [place] [address] Nov, [facility] [place] [facility] [address] [id number] [place] [address] Nov, [facility] [place] [facility] [address] [id number] [place] [address] Oct, [facility] [place] [facility] [address] [id number] [place] [address] Oct, [facility] [place] [facility] [address] [id number] [place] [address] Sep, [facility] [place] [facility] [address] [id number] [place] [address] Sep, [facility] [place] [facility] [address] [id number] [place] [address] Aug, [facility] [place] [facility] [address] [id number] [place] [address] 9720 Aug, [facility] [place] [facility] [address] [id number] [place] [address] 6447 Aug, [facility] [place] [facility] [address] [id number] [place] [address] 4597 Aug, [facility] [place] [facility] [address] [id number] [place] [address] 5996 Aug, [facility] [place] [facility] [address] [id number] [place] [address] 3614 Aug, [facility] [place] [facility] [address] [id number] [place] [address] 4034 Aug, [facility] [place] [facility] [address] [id number] [place] [address] 5674 Aug, [facility] [place] [facility] [address] [id number] [place] [address] 7625 Aug, [facility] [place] [facility] [address] [id number] [place] [address] 6072 Jul, [facility] [place] [facility] [address] [id number] [place] [address] 6968 Jul, [facility] [place] [facility] [address] [id number] [place] [address] 8116 Jul, [facility] [place] [facility] [address] [id number] [place] [address] 4934 Jul, [facility] [place] [facility] [address] [id number] [place] [address] 4830 Jul, [facility] [place] [facility] [address] [id number] [place] [address]- 7537 Jul, [facility] [place] [facility] [address] [id number] [place] [address]- 0547 Jul, [facility] [place] [facility] [address] [id number] [place] [address]- 6627 Jul, [facility] [place] [facility] [address] [id number] [place] [address]- 2579 Jul, [facility] [place] [facility] [address] [id number] [place] [address]- 0195 Jul, [facility] [place] [facility] [address] [id number] [place] [address]- 4061 Jun, [facility] [place] [facility] [address] [id number] [place] [address]- 1665 Jun, [facility] [place] [facility] [address] [id number] [place] [address]- 9635 Jun, [facility] [place] [facility] [address] [id number] [place] [address]- 6608 Jun, [facility] [place] [facility] [address] [id number] [place] [address]- 4364 Jun, [facility] [place] [facility] [address] [id number] [place] [address]- 4597 Jun, [facility] [place] [facility] [address] [id number] [place] [address]- 5325 30 May, 2013 [facility] [place] [facility] [address] [id number] [place] [address]- 0170 30 May, 2013 [facility] [place] [facility] [address] [id number] [place] [address]- 5181 29 May, 2013 [facility] [place] [facility] [address] [id number] [place] [address]- 2545 29 Sep, 2013 [facility] [place] [facility] [address] [id number] [place] [address]- 2547 24 Sep, 2013 [facility] [place] [facility] [address] [id number] [place] [address] 2546 24 May, 2013 [facility] [place] [facility] [address] [id number] [place] [address]- 2542 22 May, 2013 [facility] [place] [facility] [address] [id number] [place] [address]- 0573 May, [facility] [place] [facility] [address] [id number] [place] [address]- 5979 May, 2013 [facility] [place] [facility] [address] [id number] [place] [address]- 7204 May, [facility] [place] [facility] [address] [id number] [place] [address]- 0990 May, [facility] [place] [facility] [address] [id number] [place] [address]- 9511 May, [facility] [place] [facility] [address] [id number] [place] [address]- 2136 Apr, [facility] [place] [facility] [address] [id number] [place] [address]- 2858 Apr, [facility] [place] [facility] [address] [id number] [place] [address]- 4165 Apr, [facility] [place] [facility] [address] [id number] [place] [address]- 2850 Apr, [facility] [place] [facility] [address] [id number] [place] [address]- 4218 Apr, [facility] [place] [facility] [address] [id number] [place] [address]- 7011 Apr, [facility] [place] [facility] [address] [id number] [place] [address]- 5416 Apr, [facility] [place] [facility] [address] [id number] [place] [address]- 5916 Apr, [facility] [place] [facility] [address] [id number] [place] [address]- 5717 Apr, [facility] [place] [facility] [address] [id number] [place] [address]- 9370 Apr, [facility] [place] [facility] [address] [id number] [place] [address]- 7775 Apr, [facility] [place] [facility] [address] [id number] [place] [address]- 3283 Apr, [facility] [place] [facility] [address] [id number] [place] [address]- 7529 Apr, [facility] [place] [facility] [address] [id number] [place] [address]- 3762 Apr, [facility] [place] [facility] [address] [id number] [place] [address]- 9315 Apr, [facility] [place] [facility] [address] [id number] [place] [address]- 1175 Apr, [facility] [place] [facility] [address] [id number] [place] [address]- 2020 Apr, [facility] [place] [facility] [address] [id number] [place] [address]- 8883 Apr, [facility] [place] [facility] [address] [id number] [place] [address]- 9026 Apr, [facility] [place] [facility] [address] [id number] [place] [address]- 5581 Apr, [facility] [place] [facility] [address] [id number] [place] [address]- 2461 Apr, [facility] [place] [facility] [address] [id number] [place] [address]- 4570 Apr, [facility] [place] [facility] [address] [id number] [place] [address]- 8723 Apr, [facility] [place] [facility] [address] [id number] [place] [address]- 2466 Mar, [facility] [place] [facility] [address] [id number] [place] [address]- 2433 Mar, [facility] [place] [facility] [address] [id number] [place] [address]- 5570 Mar, [facility] [place] [facility] [address] [id number] [place] [address]- 4642 Mar, [facility] [place] [facility] [address] [id number] [place] [address]- 5800 Mar, [facility] [place] [facility] [address] [id number] [place] [address]- 8962 Mar, [facility] [place] [facility] [address] [id number] [place] [address]- 2972 18 Mar, 2014 [facility] [place] [facility] [address] [id number] [place] [address]- 8137 Mar, [facility] [place]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
--- OUTSIDE RECORDS SUMMARY | 2018-06-07 11:30 | XMS REPORT ---
Author Author ELISEO BENDER Organization [facility] Address [address] [place] [address] Care Team Providers Care Assisted Living Manager Name Role Phone ELISEO BENDER Unavailable PROBLEMS Type Condition ICD9-CM Code LOC30-NE Code Onset Dates Condition Status SNOMED Code Problem Chest pain, unspecified type R07.9 Active 13674580 Problem Depression, unspecified depression type F32.9 Active 43268030 Problem Anxiety F41.9 Active 30514190 Problem BMI 30.0-30.9,adult Z68.30 Active 919674730 Problem Moderate episode of recurrent major depressive disorder F33.1 Active 268656381 Problem Thyroid cancer C73 Active 637728816 Problem Postoperative hypothyroidism E89.0 Active 92379910 Problem BMI 31.0-31.9,adult Z68.31 Active 439023518 Problem Other atopic dermatitis L20.89 Active 35917071 Problem Low back pain, unspecified back pain laterality, with sciatica presence unspecified M54.5 Active 523620133 Problem Neuropathy G62.9 Active 572758832 Problem Other chronic pain G89.29 Active 12780113 Problem Dysthymia F34.1 Active 28208898 Problem 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 Active 57276103 Problem Insomnia G47.00 Active 612301750 Problem Gastro-esophageal reflux disease without esophagitis K21.9 Active 878929890 Problem Rheumatoid arthritis, involving unspecified site, unspecified rheumatoid factor presence M06.9 Active 51266915 ALLERGIES No Information ENCOUNTERS Encounter Location Date Diagnosis [facility] [id number], [place] [address] Apr, Low back pain, unspecified back pain laterality, with sciatica presence unspecified M54.5 [facility] [id number], [place] [address] Apr, Right ear pain H92.01 [id number] [place] [address] 28747- 2729 08 Apr, 2018 Postoperative hypothyroidism E89.0 [facility] [id number] [place] [address] 85780- 8419 Apr, Low back pain, unspecified back pain laterality, with sciatica presence unspecified M54.5 [facility] [id number] [place] [address] 07060- 3097 Mar, Breast cancer screening Z12.39 and Discharge from nipple N64.52 [address] [id number] [place] [address] 97672- 2490 Mar, Low back pain, unspecified back pain laterality, with sciatica presence unspecified M54.5 [facility] [id number] [place] [address] 63598- 0348 Mar, Low back pain, unspecified back pain laterality, with sciatica presence unspecified M54.5 ; Rheumatoid arthritis, involving unspecified site, unspecified rheumatoid factor presence M06.9 ; Breast cancer screening Z12.39 and Moderate episode of recurrent major depressive disorder F33.1 [address] [id number] [place] [address] 65420- 0918 Feb, Low back pain, unspecified back pain laterality, with sciatica presence unspecified M54.5 [facility] [id number] [place] [address] 95279- 3331 January, BMI 30.0-30.9,adult Z68.30 [facility] [id number] [place] [address] 48433- 7874 January, Low back pain, unspecified back pain laterality, with sciatica presence unspecified M54.5 [facility] [id number] [place] [address] 50995- 9541 January, [facility] [id number] [place] [address] 14698- 5371 Dec, Low back pain, unspecified back pain laterality, with sciatica presence unspecified M54.5 [facility] [id number] [place] [address] 27569- 6518 Nov, Low back pain, unspecified back pain laterality, with sciatica presence unspecified M54.5 [id number] [place] [address] 40278- 2208 Nov, [address] 85462- 1316 Nov, Low back pain, unspecified back pain laterality, with sciatica presence unspecified M54.5 ; Other chronic pain G89.29 ; Rheumatoid arthritis, involving unspecified site, unspecified rheumatoid factor presence M06.9 and Dysthymia F34.1 [address] [id number] [place] [address] 49599- 5256 Oct, Low back pain, unspecified back pain laterality, with sciatica presence unspecified M54.5 [facility] [id number] [place] [address] 70694- 1173 Sep, Low back pain, unspecified back pain laterality, with sciatica presence unspecified M54.5 [facility] [id number] [place] [address] 71320 -2640 Sep, Fever R50.9 and URI, acute J06.9 [id number] [place] [address] 04037- 9132 Aug, [facility] [id number] [place] [address] 48019- 6958 Aug, Low back pain, unspecified back pain laterality, with sciatica presence unspecified M54.5 [address] [id number] [place] [address] 23412- 8852 Jul, Low back pain, unspecified back pain laterality, with sciatica presence unspecified M54.5 [facility] [id number] [place] [address] 31718 -5035 Jul, Nausea R11.0 ; Fever and chills R50.9 ; UTI symptoms R39.9 and Hematuria, unspecified type R31.9 [address] [id number] [place] [address] 87847- 7662 Jul, [address] 43173- 2623 Jun, Low back pain, unspecified back pain laterality, with sciatica presence unspecified M54.5 [address] [facility] 84138- 0526 Jun, BMI 31.0-31.9,adult Z68.31 [address] [facility] [address] 95531- 5053 Jun, Neuropathy G62.9 [address] 77025- 8541 Jun, Low back pain, unspecified back pain laterality, with sciatica presence unspecified M54.5 [address] [facility] [address] 55331- 4908 Jun, Encounter for immunization Z23 [address] 55033- 6343 Jun, BMI 31.0-31.9,adult Z68.31 [address] [id number] [place] [address] 31142- 3295 Jun, Low back pain, unspecified back pain laterality, with sciatica presence unspecified M54.5 [facility] [id number] [place] [address] 62881- 5307 May, Low back pain, unspecified back pain laterality, with sciatica presence unspecified M54.5 ; Other chronic pain G89.29 ; Plantar fasciitis M72.2 ; Rheumatoid arthritis, involving unspecified site, unspecified rheumatoid factor presence M06.9 and History of alcohol abuse Z87.898 [address] [place] [address] 08 May, 2017 Anxiety F41.9 and Low back pain, unspecified back pain laterality, with sciatica presence unspecified M54.5 [address] [facility] 85406- 8311 11 Apr, 2017 Anxiety F41.9 and Low back pain, unspecified back pain laterality, with sciatica presence unspecified M54.5 [address] 34657- 8535 18 Mar, 2017 Acute right-sided low back pain without sciatica M54.5 ; Rash R21 ; Right flank pain R10.9 ; Lipid screening Z13.220 ; Other chronic pain G89.29 ; 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 ; Postoperative hypothyroidism E89.0 and Breast cancer screening Z12.39 [address] 11687- 8471 14 Mar, 2017 Anxiety F41.9 and Low back pain, unspecified back pain laterality, with sciatica presence unspecified M54.5 [address] [facility] 77979- 6119 13 Mar, 2017 Acute right-sided low back pain without sciatica M54.5 [address] [facility] 12515- 4061 07 Mar, 2017 Anxiety F41.9 [address] 07427- 7279 28 Feb, 2017 Right flank pain R10.9 and Anxiety F41.9 [address] 27657- 9424 16 Feb, 2017 BMI 31.0-31.9,adult Z68.31 [address] 40483- 2672 16 Feb, 2017 Low back pain, unspecified back pain laterality, with sciatica presence unspecified M54.5 and Anxiety F41.9 [facility] [address] [place] [address] January, Abscess of toe of right foot L02.611 and Other atopic dermatitis L20.89 [id number]- [address]358 January, Low back pain, unspecified back pain laterality, with sciatica presence unspecified M54.5 and Anxiety F41.9 [address] 33201- 2116 Dec, Anxiety F41.9 and Low back pain, unspecified back pain laterality, with sciatica presence unspecified M54.5 [facility] [address] 96122 -8401 Dec, Scabies B86 [address] 46269- 1884 Nov, Rash R21 ; Other chronic pain G89.29 ; 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 ; Postoperative hypothyroidism E89.0 ; Breast cancer screening Z12.39 and Lipid screening Z13.220 [address] 232929- 7794 Nov, Anxiety F41.9 and Low back pain, unspecified back pain laterality, with sciatica presence unspecified M54.5 [address] 83568- 8603 Oct, Anxiety F41.9 and Low back pain, unspecified back pain laterality, with sciatica presence unspecified M54.5 [address] 35162- 0602 Sep, Anxiety F41.9 and Low back pain, unspecified back pain laterality, with sciatica presence unspecified M54.5 [address] 51089- 2939 Sep, Anxiety F41.9 [address] 24996- 9853 Sep, Gastro-esophageal reflux disease without esophagitis K21.9 [facility] [address] [place] [address] [id number] Sep, Dental examination Z01.20 [facility] [id number] [place] [address] 25864- 4916 Sep, Low back pain, unspecified back pain laterality, with sciatica presence unspecified M54.5 and Postoperative hypothyroidism E89.0 [facility] [id number] [place] [address] 08288- 2180 Aug, Anxiety F41.9 [facility] [address] 40146- 6123 Aug, [facility] [id number] [place] [address] 47887- 3928 Aug, Low back pain, unspecified back pain laterality, with sciatica presence unspecified M54.5 ; Other chronic pain G89.29 ; Thyroid cancer C73 and Postoperative hypothyroidism E89.0 [facility] [id number] [place] [address] 64407- 5282 Jul, [facility] [id number] [place] [address] 68115- 0315 Jul, Anxiety F41.9 [facility] [id number] [place] [address] 29753- 9603 Jul, [facility] [id number] [place] [address] 80336- 1516 18 Jul, 2016 BMI 29.0-29.9,adult Z68.29 [facility] [id number] [place] [address] 31064- 3852 17 Jul, 2016 [facility] [id number] [place] [address] 32747- 5673 08 Jul, 2016 BMI 30.0-30.9,adult Z68.30 [facility] [address] 68424- 7717 Jul, Low back pain, unspecified back pain laterality, with sciatica presence unspecified M54.5 and Anxiety F41.9 [address] 74907- 1951 Jun, 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 [address] 68668- 1639 Jun, BMI 30.0-30.9,adult Z68.30 [address] 94308- 8213 Jun, [address] 303584- 5486 Jun, 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 ; Dysthymia F34.1 ; Encounter for immunization Z23 and Other chronic pain G89.29 [address] 68126- 2553 Jun, Low back pain, unspecified back pain laterality, with sciatica presence unspecified M54.5 [address] 75307- 2849 Jun, BMI 30.0-30.9,adult Z68.30 [address] 23906- 1219 Jun, Anxiety F41.9 [address] 08064- 8621 May, 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 [address] 82739- 2638 May, Constipation, unspecified constipation type K59.00 [address] 73382- 1593 May, Low back pain, unspecified back pain laterality, with sciatica presence unspecified M54.5 [address] 68161- 3317 May, [facility] [address] [place] [address] 65069- 6101 May, Constipation, unspecified constipation type K59.00 [facility] [id number] [place] [address] 76609- 7810 May, Anxiety F41.9 [facility] [address] 24374- 9594 Apr, BMI 31.0-31.9,adult Z68.31 [address] [id number] [place] [address] 08327- 3357 Apr, Thyroid goiter E04.9 [address] [id number] [place] [address] 06544- 2126 Apr, [address] 93283- 6696 Apr, Low back pain, unspecified back pain laterality, with sciatica presence unspecified M54.5 [address] [id number] [place] [address] 48738- 3786 Apr, [address] [id number] [place] [address] 72090- 1941 Apr, Constipation, unspecified constipation type K59.00 ; Thyroid nodule E04.1 ; Family history of colon cancer Z80.0 and 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 [address] [id number] [place] [address] 13743- 6568 Apr, Anxiety F41.9 [facility] [id number] [place] [address] 71226- 2019 Mar, [address] [id number] [place] [address] 59957- 7554 Mar, Low back pain, unspecified back pain laterality, with sciatica presence unspecified M54.5 [address] [id number] [place] [address] 77309- 5411 Mar, BMI 32.0-32.9,adult Z68.32 [address] [id number] [place] [address] 01593- 8468 Feb, Anxiety F41.9 [address] [id number] [place] [address] 00003- 5853 Feb, Depression, unspecified depression type F32.9 [address] [facility] 26577- 3540 Feb, BMI 32.0-32.9,adult Z68.32 [address] [id number] [place] [address] 99565- 9280 Feb, Low back pain, unspecified back pain laterality, with sciatica presence unspecified M54.5 [address] [id number] [place] [address] 48698- 0389 Feb, [address] 57740- 0061 Feb, BMI 32.0-32.9,adult Z68.32 [address] [id number] [place] [address] 65802- 6533 Feb, Anxiety F41.9 [address] [id number] [place] [address] 86510- 6764 January, BMI 32.0-32.9,adult Z68.32 [address] [facility] [place] [address] 58077- 0519 January, Low back pain, unspecified back pain laterality, with sciatica presence unspecified M54.5 ; Other chronic pain G89.29 ; Weight gain R63.5 and Rheumatoid arthritis, involving unspecified site, unspecified rheumatoid factor presence M06.9 [address] [id number] [place] [address] 22891- 6576 January, Low back pain, unspecified back pain laterality, with sciatica presence unspecified M54.5 [address] [facility] [place] [address] 39928- 2196 January, BMI 32.0-32.9,adult Z68.32 [facility] [address] 99475- 9165 January, BMI 32.0-32.9,adult Z68.32 [facility] [address] 50920- 4537 January, BMI 32.0-32.9,adult Z68.32 [facility] [address] 54909- 5687 Dec, Insomnia G47.00 and Dysthymia F34.1 [address] [id number] [place] [address] 48167- 7037 Dec, [address] 85730- 4848 Dec, Other chronic pain G89.29 ; Neuropathy G62.9 and Dysthymia F34.1 [facility] [id number] [place] [address] 22977- 6427 Dec, [facility] [id number] [place] [address] 61373- 9640 Nov, [facility] [id number] [place] [address] 43287- 5395 Nov, [facility] [id number] [place] [address] 51894- 8668 Nov, [facility] [id number] [place] [address] 87889- 4345 Oct, [facility] [id number] [place] [address] 99804- 4739 Oct, [facility] [id number] [place] [address] 55636- 8992 Oct, Family history of diabetes mellitus Z83.3 [address] [place], [place] [address]- 9118 04 Oct, 2015 [facility] [id number] [place] [address] 57067- 3901 Sep, [facility] [id number] [place] [address] 96051- 6950 Sep, Eye pain, right H57.11 and Other chronic pain G89.29 [facility] [id number] [place] [address] 03794- 4601 Sep, [facility] [id number] [place] [address] 99861- 3019 Sep, [facility] [address] [place] [address] 60230- 6423 Sep, 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 ; Neuropathy G62.9 ; Low back pain, unspecified back pain laterality, with sciatica presence unspecified M54.5 ; Gastro-esophageal reflux disease without esophagitis K21.9 and Encounter for long-term (current) use of other medications V58.69 [facility] [id number] [place] [address] 86852- 2364 Sep, [facility] [id number] [place] [address] 04800- 7845 Sep, [facility] [address] [place] [address] 51913- 0767 Sep, [facility] [id number] [place] [address] 09449- 1499 Sep, [facility] [address] [place] [address] 24540- 0638 Aug, [facility] [id number] [place] [address] 27261- 5872 Aug, Family history of diabetes mellitus Z83.3 [facility] [address] [place] [address] 85886- 6610 Aug, [facility] [address] [place] [address] 86116- 0510 Aug, [facility] [id number] [place] [address] 52560- 9155 Aug, Family history of diabetes mellitus Z83.3 [facility] [id number] [place] [address] 56189- 1176 Aug, Weight gain R63.5 ; Edema, unspecified R60.9 ; Family history of diabetes mellitus Z83.3 and Gastroesophageal reflux disease with esophagitis K21.0 [facility] [id number] [place] [address] 87154- 2453 Aug, [facility] [id number] [place] [address] 48812- 4486 Aug, [facility] [id number] [place] [address] 00838- 5041 Jul, [facility] [id number] [place] [address] 47018- 3178 Jul, [facility] [id number] [place] [address] 47290- 2939 Jul, [facility] [id number] [place] [address] 53896- 0237 Jun, [facility] [id number] [place] [address] 13950- 3186 Jun, Nose pain J34.89 ; Encounter for immunization Z23 ; Screening for breast cancer Z12.39 and Encounter for long-term (current) use of other medications V58.69 [facility] [id number] [place] [address] 97912- 7059 Jun, [facility] [id number] [place] [address] 44474160- 7117 May, [facility] [id number] [place] [address] 25520- 3721 May, [facility] [place] [facility] [address] [id number] [place] [address]- 3873 May, 2014 [facility] [place] [facility] [address] [id number] [place] [address]- 7436 May, 2014 [facility] [place] [facility] [address] [id number] [place] [address]- 8302 May, [facility] [place] [facility] [address] [id number] [place] [address]- 4048 May, [facility] [place] [facility] [address] [id number] [place] [address]- 8000 May, [facility] [place] [facility] [address] [id number] [place] [address]- 0272 Apr, [facility] [place] [facility] [address] [id number] [place] [address]- 8047 Apr, [facility] [place] [facility] [address] [id number] [place] [address]- 2798 Apr, [facility] [place] [facility] [address] [facility] [id number] [place] [address]- 5839 Mar, [facility] [place] [facility] [address] [facility] [id number] [place] [address]- 9363 Mar, [facility] [place] [facility] [id number] [place] [address]- 7700 Mar, Lesion of left shoulder 709.9 [facility] [place] [facility] [address] [id number] [place] [address]- 2831 Mar, [facility] [place] [facility] [address] [facility] [id number] [place] [address]- 8377 Mar, [facility] [place] [facility] [address] [facility] [id number] [place] [address]- 9564 Mar, [facility] [place] [facility] [address] [facility] [id number] [place] [address]- 7638 Feb, [facility] [place] [facility] [address] [address]- 7624 Feb, [facility] [address], [place] [address]- 9756 Feb, Unspecified backache 724.5 ; Weight gain 783.1 ; Hypothyroid 244.9 ; Edema 782.3 and Diaphoresis 780.8 [facility] [address], [place] [address]- 8840 Feb, [facility] [id number], [place] [address]- 3428 Feb, [facility] [id number] [place] [address] 14955- 4913 Feb, [facility] [id number], [place] [address]- 3401 Feb, [facility] [address] [address] Feb, [facility] [id number] [address] January, [facility] [id number] [address] January, [facility] [id number] [address] 14 Dec, 2014 [facility] [id number] [address] 13 Dec, 2014 [facility] [id number], [place] [address] 16 Nov, 2014 [facility] [id number], [place] [address] Nov, [facility] [place] [facility] [id number] [address] 16 Nov, 2014 [facility] [id number], [place] [address] Nov, [facility] [place] [facility] [address] [id number] [place] [address] 16 Nov, 2014 [facility] [place] [facility] [address] [id number] [place] [address] 16 Nov, 2014 [facility] [place] [facility] [address] [id number] [place] [address] Nov, [facility] [place] [facility] [address] [id number] [place] [address] Nov, [facility] [place] [facility] [address] [id number] [place] [address] Nov, [facility] [place] [facility] [address] [id number] [place] [address] Nov, [facility] [place] [facility] [address] [id number] [place] [address] Nov, [facility] [place] [facility] [address] [address] [id number] [place] [address] Nov, [facility] [place] [facility] [address] [id number] [place] [address] Nov, [facility] [place] [facility] [address] [id number] [place] [address]484 Oct, [facility] [place] [facility] [address] [id number] [place] [address] 1629 Oct, [facility] [place] [facility] [address] [id number] [place] [address] 6[address] Sep, [facility] [place] [facility] [address] [id number] [place] [address]887 Sep, [facility] [place] [facility] [address] [id number] [place] [address] 2071 Aug, [facility] [place] [facility] [address] [id number] [place] [address] 9511 Aug, [facility] [place] [facility] [address] [id number] [place] [address]- 0710 Aug, [facility] [place] [facility] [address] [id number] [place] [address]- 7469 Aug, [facility] [place] [facility] [address] [id number] [place] [address]- 5451 Aug, [facility] [place] [facility] [address] [id number] [place] [address] 6463 Aug, [facility] [place] [facility] [address] [id number] [place] [address]- 9354 Aug, [facility] [place] [facility] [address] [id number] [place] [address]- 8077 Aug, [facility] [place] [facility] [address] [id number] [place] [address]- 9232 Aug, [facility] [place] [facility] [address] [id number] [place] [address]- 6000 Jul, [facility] [place] [facility] [address] [id number] [place] [address]- 5511 Jul, [facility] [place] [facility] [address] [id number] [place] [address]- 3718 Jul, [facility] [place] [facility] [address] [id number] [place] [address]- 7948 Jul, [facility] [place] [facility] [address] [id number] [place] [address]- 7524 Jul, [facility] [place] [facility] [address] [id number] [place] [address]- 0210 Jul, [facility] [place] [facility] [address] [id number] [place] [address]- 5210 Jul, [facility] [place] [facility] [address] [id number] [place] [address]- 8698 Jul, [facility] [place] [facility] [address] [id number] [place] [address]- 9602 14 Jul, 2014 [facility] [place] [facility] [address] [id number] [place] [address]- 7443 Jul, [facility] [place] [facility] [address] [id number] [place] [address]- 7366 Jun, [facility] [place] [facility] [address] [id number] [place] [address]- 6555 Jun, [facility] [place] [facility] [address] [id number] [place] [address]- 4992 Jun, [facility] [place] [facility] [address] [id number] [place] [address]- 8509 Jun, [facility] [place] [facility] [address] [id number] [place] [address]- 3350 Jun, [facility] [place] [facility] [address] [id number] [place] [address]- 0811 Jun, [facility] [place] [facility] [address] [id number] [place] [address]- 2764 30 May, 2013 [facility] [place] [facility] [address] [id number] [place] [address]- 4028 30 Sep, 2013 [facility] [place] [facility] [address] [id number] [place] [address]- 2540 29 May, 2013 [facility] [place] [facility] [address] [id number] [place] [address]- 5710 29 May, 2013 [facility] [place] [facility] [address] [id number] [place] [address]- 2549 24 Sep, 2013 [facility] [place] [facility] [address] [id number] [place] [address]- 2540 24 Sep, 2013 [facility] [place] [facility] [address] [id number] [place] [address]- 2540 22 May, 2013 [facility] [place] [facility] [address] [id number] [place] [address]- 254 22 May, 2013 [facility] [place] [facility] [address] [id number] [place] [address]- 8761 May, [facility] [place] [facility] [address] [id number] [place] [address]- 8330 05 May, 2013 [facility] [place] [facility] [address] [id number] [place] [address]- 6014 May, [facility] [place] [facility] [address] [id number] [place] [address]- 7307 May, [facility] [place] [facility] [address] [id number] [place] [address]- 3377 Apr, [facility] [place] [facility] [address] [id number] [place] [address]- 2377 Apr, [facility] [place] [facility] [address] [id number] [place] [address]- 8089 Apr, [facility] [place] [facility] [address] [id number] [place] [address]- 4793 Apr, [facility] [place] [facility] [address] [id number] [place] [address]- 9676 Apr, [facility] [place] [facility] [address] [id number] [place] [address]- 6983 Apr, [facility] [place] [facility] [address] [id number] [place] [address]- 5633 Apr, [facility] [place] [facility] [address] [id number] [place] [address]- 1577 Apr, [facility] [place] [facility] [address] [id number] [place] [address]- 2885 Apr, [facility] [place] [facility] [address] [id number] [place] [address]- 8455 Apr, [facility] [place] [facility] [address] [id number] [place] [address]- 9625 Apr, [facility] [place] [facility] [address] [id number] [place] [address]- 2627 Apr, [facility] [place] [facility] [address] [id number] [place] [address]- 0709 Apr, [facility] [place] [facility] [address] [id number] [place] [address]- 5947 Apr, [facility] [place] [facility] [address] [id number] [place] [address]- 3404 Apr, [facility] [place] [facility] [address] [id number] [place] [address]- 1791 Apr, [facility] [place] [facility] [address] [id number] [place] [address]- 1572 Apr, [facility] [place] [facility] [address] [id number] [place] [address]- 7959 Apr, [facility] [place] [facility] [address] [id number] [place] [address]- 6203 Apr, [facility] [place] [facility] [address] [id number] [place] [address]- 2386 Apr, [facility] [place] [facility] [address] [id number] [place] [address]- 1338 Apr, [facility] [place] [facility] [address] [id number] [place] [address]- 7954 Apr, [facility] [place] [facility] [address] [id number] [place] [address]- 1478 Apr, [facility] [place] [facility] [address] [id number] [place] [address]- 0871 Mar, [facility] [place] [facility] [address] [id number] [place] [address]- 2055 Mar, [facility] [place] [facility] [address] [id number] [place] [address]- 1059 Mar, [facility] [place] [facility] [address] [id number] [place] [address]- 0905 Mar, [facility] [place] [facility] [address] [id number] [place] [address]- 2216 Mar, [facility] [place] [facility] [address] [id number] [place] [address]- 2694 Mar, [facility] [place] [facility] [address] [id number] [place] [address]- 7534 Mar, [facility] [place] [facility] [address] [id number] [facility] [address]- 3646 Mar, [facility] [place]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
--- OUTSIDE RECORDS SUMMARY | 2018-06-07 11:31 | XMS REPORT ---
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 Name Role Phone ELISEO BENDER Unavailable PROBLEMS Type Condition ICD9-CM Code SPJ23-XO Code Onset Dates Condition Status SNOMED Code Problem Chest pain, unspecified type R07.9 Active 08093320 Problem Depression, unspecified depression type F32.9 Active 40166833 Problem Anxiety F41.9 Active 58919982 Problem BMI 30.0-30.9,adult Z68.30 Active 426068712 Problem Moderate episode of recurrent major depressive disorder F33.1 Active 172020544 Problem Thyroid cancer C73 Active 893893024 Problem Postoperative hypothyroidism E89.0 Active 31307026 Problem BMI 31.0-31.9,adult Z68.31 Active 930964949 Problem Other atopic dermatitis L20.89 Active 79319098 Problem Low back pain, unspecified back pain laterality, with sciatica presence unspecified M54.5 Active 205781806 Problem Neuropathy G62.9 Active 856445242 Problem Other chronic pain G89.29 Active 36487453 Problem Dysthymia F34.1 Active 83867689 Problem 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 Active 52856637 Problem Insomnia G47.00 Active 741987318 Problem Gastro-esophageal reflux disease without esophagitis K21.9 Active 797526337 Problem Rheumatoid arthritis, involving unspecified site, unspecified rheumatoid factor presence M06.9 Active 19359785 ALLERGIES Substance Reaction Event Type Date Status Penicillin V Potassium anaphylaxis Drug Allergy Mar, Active Klonopin Makes her cry all the time Drug Allergy Mar, Active ENCOUNTERS Encounter Location Date Diagnosis [facility] [id number] [place] [address] Apr, Low back pain, unspecified back pain laterality, with sciatica presence unspecified M54.5 [facility] [id number] [place] [address] 13615 -3382 Apr, Right ear pain H92.01 [place] [address] 40655- 3729 Apr, Postoperative hypothyroidism E89.0 [place] [address] 51710- 0164 Apr, Low back pain, unspecified back pain laterality, with sciatica presence unspecified M54.5 [place] [id number] [place] [address] 50755- 6272 Mar, Breast cancer screening Z12.39 and Discharge from nipple N64.52 [place] [id number] [place] [address] 18237- 3530 Mar, Low back pain, unspecified back pain laterality, with sciatica presence unspecified M54.5 [place] [address] 90306- 8793 Mar, Low back pain, unspecified back pain laterality, with sciatica presence unspecified M54.5 ; Rheumatoid arthritis, involving unspecified site, unspecified rheumatoid factor presence M06.9 ; Breast cancer screening Z12.39 and Moderate episode of recurrent major depressive disorder F33.1 [place] [id number] [place] [address] 01714- 2144 Feb, Low back pain, unspecified back pain laterality, with sciatica presence unspecified M54.5 [place] [id number] [place] [address] 62190- 8450 January, BMI 30.0-30.9,adult Z68.30 [place] [address] 83420- 1367 January, Low back pain, unspecified back pain laterality, with sciatica presence unspecified M54.5 [place] [id number] [place] [address] 93927- 1949 January, [place] [id number] [place] [address] 46685- 6999 Dec, Low back pain, unspecified back pain laterality, with sciatica presence unspecified M54.5 [place] [id number] [place] [address] 25410- 2582 Nov, Low back pain, unspecified back pain laterality, with sciatica presence unspecified M54.5 [place] [address] 72682- 2228 Nov, [place] [id number] [place] [address] 53523- 5625 Nov, Low back pain, unspecified back pain laterality, with sciatica presence unspecified M54.5 ; Other chronic pain G89.29 ; Rheumatoid arthritis, involving unspecified site, unspecified rheumatoid factor presence M06.9 and Dysthymia F34.1 [place] [id number] [place] [address] 80693- 7565 Oct, Low back pain, unspecified back pain laterality, with sciatica presence unspecified M54.5 [place] [id number] [place] [address] 89747- 9993 Sep, Low back pain, unspecified back pain laterality, with sciatica presence unspecified M54.5 [facility] [id number] [place] [address] 42835 -2156 Sep, Fever R50.9 and URI, acute J06.9 [facility] [id number] [place] [address] 83657- 3874 Aug, [place] [id number] [place] [address] 08026- 7322 Aug, Low back pain, unspecified back pain laterality, with sciatica presence unspecified M54.5 [place] [id number] [place] [address] 08957- 8666 Jul, Low back pain, unspecified back pain laterality, with sciatica presence unspecified M54.5 [facility] [id number] [place] [address] 54479 -4495 Jul, Nausea R11.0 ; Fever and chills R50.9 ; UTI symptoms R39.9 and Hematuria, unspecified type R31.9 [place] [id number] [place] [address] 97429- 1732 Jul, [place] [address] 42226- 4209 Jun, Low back pain, unspecified back pain laterality, with sciatica presence unspecified M54.5 [place] [address] 25563- 1958 Jun, BMI 31.0-31.9,adult Z68.31 [place] [id number] [place] [address] 69283- 1959 Jun, Neuropathy G62.9 [place] [address] 55922- 6398 Jun, Low back pain, unspecified back pain laterality, with sciatica presence unspecified M54.5 [place] [address] 46906- 4304 Jun, Encounter for immunization Z23 [place] [id number] [place] [address] 47658- 4713 Jun, BMI 31.0-31.9,adult Z68.31 [place] [address] 72346- 8644 Jun, Low back pain, unspecified back pain laterality, with sciatica presence unspecified M54.5 [place] [address] 00800- 5379 May, Low back pain, unspecified back pain laterality, with sciatica presence unspecified M54.5 ; Other chronic pain G89.29 ; Plantar fasciitis M72.2 ; Rheumatoid arthritis, involving unspecified site, unspecified rheumatoid factor presence M06.9 and History of alcohol abuse Z87.898 [place] [id number] [place] [address] 30608- 9163 08 May, 2017 Anxiety F41.9 and Low back pain, unspecified back pain laterality, with sciatica presence unspecified M54.5 [place] [address] 08041- 0789 Apr, Anxiety F41.9 and Low back pain, unspecified back pain laterality, with sciatica presence unspecified M54.5 [place] [address] 13168- 6054 18 Mar, 2017 Acute right-sided low back pain without sciatica M54.5 ; Rash R21 ; Right flank pain R10.9 ; Lipid screening Z13.220 ; Other chronic pain G89.29 ; 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 ; Postoperative hypothyroidism E89.0 and Breast cancer screening Z12.39 [place] [address] 60693- 4707 14 Mar, 2017 Anxiety F41.9 and Low back pain, unspecified back pain laterality, with sciatica presence unspecified M54.5 [place] [address] 65808- 1290 13 Mar, 2017 Acute right-sided low back pain without sciatica M54.5 [place] [id number] [place] [address] 02630- 4393 Mar, Anxiety F41.9 [place] [address] 54419- 3031 Feb, Right flank pain R10.9 and Anxiety F41.9 [place] [address] 83608- 2458 16 Feb, 2017 BMI 31.0-31.9,adult Z68.31 [place] [address] 46119- 3695 16 Feb, 2017 Low back pain, unspecified back pain laterality, with sciatica presence unspecified M54.5 and Anxiety F41.9 [facility] [address] 31533 -1801 January, Abscess of toe of right foot L02.611 and Other atopic dermatitis L20.89 [place] [id number]- 6088 January, Low back pain, unspecified back pain laterality, with sciatica presence unspecified M54.5 and Anxiety F41.9 [place] [address] 42273 8282 Dec, Anxiety F41.9 and Low back pain, unspecified back pain laterality, with sciatica presence unspecified M54.5 [facility] [id number] 3383 Dec, Scabies B86 [place] [id number] 362 Nov, Rash R21 ; Other chronic pain G89.29 ; 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 ; Postoperative hypothyroidism E89.0 ; Breast cancer screening Z12.39 and Lipid screening Z13.220 [place] [address] 549361- 3569 Nov, Anxiety F41.9 and Low back pain, unspecified back pain laterality, with sciatica presence unspecified M54.5 [place] [address] 20754- 3356 Oct, Anxiety F41.9 and Low back pain, unspecified back pain laterality, with sciatica presence unspecified M54.5 [place] [address] [id number]- 2639 Sep, Anxiety F41.9 and Low back pain, unspecified back pain laterality, with sciatica presence unspecified M54.5 [place] [address] 91167- 0865 Sep, Anxiety F41.9 [facility] [id number] [place] [address] 35376- 9097 Sep, Gastro-esophageal reflux disease without esophagitis K21.9 [facility] [id number] [place] [address] [id number] Sep, Dental examination Z01.20 [facility] [address] 95509- 6035 Sep, Low back pain, unspecified back pain laterality, with sciatica presence unspecified M54.5 and Postoperative hypothyroidism E89.0 [facility] [address] 52557- 1005 Aug, Anxiety F41.9 [facility] [address] 47134- 6557 Aug, [facility] [address] 58248- 4292 Aug, Low back pain, unspecified back pain laterality, with sciatica presence unspecified M54.5 ; Other chronic pain G89.29 ; Thyroid cancer C73 and Postoperative hypothyroidism E89.0 [facility] [id number] [place] [address] 46777- 9856 Jul, [facility] [id number] [place] [address] 48408- 0953 Jul, Anxiety F41.9 [facility] [id number] [place] [address] 37267- 5807 Jul, [facility] [id number] [place] [address] 95380- 4039 Jul, BMI 29.0-29.9,adult Z68.29 [facility] [id number] [place] [address] 45191- 5403 17 Jul, 2016 [facility] [address] 35702- 0971 08 Jul, 2016 BMI 30.0-30.9,adult Z68.30 [place] [id number] [place] [address] 54267- 5049 Jul, Low back pain, unspecified back pain laterality, with sciatica presence unspecified M54.5 and Anxiety F41.9 [place] [id number] [place] [address] 42955- 5046 Jun, 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 [place] [address] 850289- 3425 Jun, BMI 30.0-30.9,adult Z68.30 [place] [address] 940350- 4354 14 Jun, 2016 [place] [address] 90196- 1730 Jun, 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 ; Dysthymia F34.1 ; Encounter for immunization Z23 and Other chronic pain G89.29 [place] [address] 39949- 4277 Jun, Low back pain, unspecified back pain laterality, with sciatica presence unspecified M54.5 [place] [id number] [place] [address] 62837- 6685 Jun, BMI 30.0-30.9,adult Z68.30 [place] [address] 03043- 1317 Jun, Anxiety F41.9 [place] [id number] [place] [address] 96969- 7009 May, 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 [place] [id number] [place] [address] 36916- 7997 May, Constipation, unspecified constipation type K59.00 [place] [id number] [place] [address] 60808- 9506 May, Low back pain, unspecified back pain laterality, with sciatica presence unspecified M54.5 [place] [id number] [place] [address] 45769- 7604 May, [place] [address] 64871- 8956 May, Constipation, unspecified constipation type K59.00 [place] [address] 51780- 2464 May, Anxiety F41.9 [place] [address] 42653- 8699 Apr, BMI 31.0-31.9,adult Z68.31 [place] [address] 56383- 7732 Apr, Thyroid goiter E04.9 [place] [address] 89863- 6254 Apr, [place] [address] 94165- 4394 Apr, Low back pain, unspecified back pain laterality, with sciatica presence unspecified M54.5 [place] [address] 27937- 2433 Apr, [place] [address] 55472- 6008 Apr, Constipation, unspecified constipation type K59.00 ; Thyroid nodule E04.1 ; Family history of colon cancer Z80.0 and 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 [place] [id number] [place] [address] 91920- 0408 Apr, Anxiety F41.9 [place] [address] 45677- 5327 Mar, [place] [address] 41456- 1575 Mar, Low back pain, unspecified back pain laterality, with sciatica presence unspecified M54.5 [place] [id number] [place] [address] 91336- 0246 Mar, BMI 32.0-32.9,adult Z68.32 [place] [id number] [place] [address] 45017- 2295 Feb, Anxiety F41.9 [place] [address] 57066- 1394 Feb, Depression, unspecified depression type F32.9 [place] [id number] [place] [address] 63725- 0531 Feb, BMI 32.0-32.9,adult Z68.32 [place] [id number] [place] [address] 25669- 5835 Feb, Low back pain, unspecified back pain laterality, with sciatica presence unspecified M54.5 [place] [id number] [place] [address] 69984- 6728 Feb, [place] [id number] [place] [address] 47279- 6357 Feb, BMI 32.0-32.9,adult Z68.32 [place] [id number] [place] [address] 70448- 8551 Feb, Anxiety F41.9 [place] [id number] [place] [address] 30592- 6949 January, BMI 32.0-32.9,adult Z68.32 [place] [id number] [place] [address] 44394- 7279 January, Low back pain, unspecified back pain laterality, with sciatica presence unspecified M54.5 ; Other chronic pain G89.29 ; Weight gain R63.5 and Rheumatoid arthritis, involving unspecified site, unspecified rheumatoid factor presence M06.9 [place] [id number] [place] [address] 86046- 1705 January, Low back pain, unspecified back pain laterality, with sciatica presence unspecified M54.5 [facility] [id number] [place] [address] 96062- 9582 January, BMI 32.0-32.9,adult Z68.32 [facility] [id number] [place] [address] 39642- 5291 January, BMI 32.0-32.9,adult Z68.32 [facility] [address] 86478- 7525 January, BMI 32.0-32.9,adult Z68.32 [facility] [address] 65887- 3158 Dec, Insomnia G47.00 and Dysthymia F34.1 [place] [address] 47570- 4755 Dec, [facility] [address] 99228- 3862 Dec, Other chronic pain G89.29 ; Neuropathy G62.9 and Dysthymia F34.1 [facility] [id number] [place] [address] 72706- 6524 Dec, [facility] [id number] [place] [address] 01957- 1129 Nov, [facility] [id number] [place] [address] 42693- 3969 Nov, [facility] [id number] [place] [address] 56066- 9174 Nov, [facility] [id number] [place] [address] 20434- 5629 Oct, [facility] [id number] [place] [address] 73522- 4091 Oct, [facility] [address] [place] [address]- 4928 Oct, Family history of diabetes mellitus Z83.3 [facility] [id number] [place] [address] 42663- 2582 Oct, [facility] [id number] [place] [address] 62413- 3178 Sep, [facility] [address] 09570- 3172 Sep, Eye pain, right H57.11 and Other chronic pain G89.29 [facility] [id number] [place] [address] 13503- 0864 Sep, [facility] [id number] [place] [address] 17370- 2180 Sep, [facility] [id number] [place] [address] 24094- 8621 Sep, 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 ; Neuropathy G62.9 ; Low back pain, unspecified back pain laterality, with sciatica presence unspecified M54.5 ; Gastro-esophageal reflux disease without esophagitis K21.9 and Encounter for long-term (current) use of other medications V58.69 [facility] [id number] [place] [address] 59606- 2884 Sep, [facility] [id number] [place] [address] 94276- 4448 Sep, [facility] [id number] [place] [address] 12307- 5434 Sep, [facility] [id number] [place] [address] 86255- 7238 Sep, [facility] [id number] [place] [address] 24040- 8285 Aug, [facility] [address] [place] [address] 47917- 9815 Aug, Family history of diabetes mellitus Z83.3 [facility] [address] [place] [address] 97019- 9737 Aug, [facility] [id number] [place] [address] 01998- 2735 17 Aug, 2015 [facility] [id number] [place] [address] 10857- 4798 16 Aug, 2015 Family history of diabetes mellitus Z83.3 [place] [address] 97235- 3281 14 Aug, 2015 Weight gain R63.5 ; Edema, unspecified R60.9 ; Family history of diabetes mellitus Z83.3 and Gastroesophageal reflux disease with esophagitis K21.0 [place] [id number] [place] [address] 48369- 2595 14 Aug, 2015 [place] [id number] [place] [address] 89447- 5802 Aug, [place] [id number] [place] [address] 97488- 9237 Jul, [place] [id number] [place] [address] 57727- 6681 Jul, [place] [id number] [place] [address] 42877- 5144 Jul, [place] [id number] [place] [address] 60467- 7560 Jun, [facility] [id number] [place] [address] 20542- 9683 Jun, Nose pain J34.89 ; Encounter for immunization Z23 ; Screening for breast cancer Z12.39 and Encounter for long-term (current) use of other medications V58.69 [place] [address] [place] [address] 47482- 0522 Jun, [place] [id number] [place] [address] 52041- 3700 May, [facility] [place] [facility] [address] [id number] [place] [address]- 0683 18 May, 2014 [facility] [place] [facility] [address] [id number] [place] [address]- 6364 May, 2014 [facility] [place] [facility] [address] [id number] [place] [address]- 2547 17 May, 2014 [facility] [place] [facility] [address] [id number] [place] [address]- 2372 10 May, 2014 [facility] [place] [facility] [address] [id number] [place] [address]- 7529 May, 2014 [facility] [place] [facility] [address] [id number] [place] [address]- 0178 May, 2014 [facility] [place] [facility] [address] [id number] [place] [address]- 1554 Apr, [facility] [place] [facility] [address] [id number] [place] [address]- 7485 Apr, [facility] [place] [facility] [address] [id number] [place] [address]- 2912 Apr, [facility] [place] [facility] [address] [facility] [id number] [place] [address]- 0615 Mar, [facility] [place] [facility] [address] [facility] [id number] [place] [address]- 3780 Mar, [facility] [place] [facility] [address] [facility] [id number] [place] [address]- 0116 Mar, Lesion of left shoulder 709.9 [facility] [place] [facility] [address] [id number] [place] [address]- 8742 Mar, [facility] [place] [facility] [address] [facility] [id number] [place] [address]- 2544 Mar, [facility] [place] [facility] [address] [facility] [id number] [place] [address]- 8920 Mar, [facility] [place] [facility] [address] [address]- 0460 Feb, [facility] [address] [place] [address]- 4185 Feb, [facility] [address] [place] [address]- 3943 Feb, Unspecified backache 724.5 ; Weight gain 783.1 ; Hypothyroid 244.9 ; Edema 782.3 and Diaphoresis 780.8 [facility] [address] [place] [address]- 5434 Feb, [facility] [id number] [place] [address] 78815- 8906 Feb, [facility] [id number] [address]- 7299 Feb, [facility] [id number] [address]- 1671 Feb, [facility] [address] [place] [address]- 0824 Feb, [facility] [address] [place] [address]- 7669 January, [facility] [address] [place] [address]- 5915 January, [facility] [address] [place] [address]- 8684 14 Dec, 2014 [facility] [id number], [place] [address] 13 Dec, 2014 [facility] [id number], [place] [address] 16 Nov, 2014 [facility] [id number] [address] Nov, [facility] [id number] [place] [address] Nov, [facility] [place] [facility] [address] [id number] [place] [address] 16 Nov, 2014 [facility] [place] [facility] [address] [id number] [place] [address] 16 Nov, 2014 [facility] [place] [facility] [address] [id number] [place] [address] 16 Nov, 2014 [facility] [place] [facility] [address] [id number] [place] [address] 12 Nov, 2014 [facility] [place] [facility] [address] [id number] [place] [address] Nov, [facility] [place] [facility] [address] [id number] [place] [address] Nov, [facility] [place] [facility] [address] [id number] [place] [address] Nov, [facility] [place] [facility] [address] [id number] [place] [address] 05 Nov, 2014 [facility] [place] [facility] [address] [id number] [place] [address] Nov, [facility] [place] [facility] [address] [id number] [place] [address] Nov, [facility] [place] [facility] [address] [id number] [place] [address] Oct, [facility] [place] [facility] [address] [id number] [place] [address] Oct, [facility] [place] [facility] [address] [id number] [place] [address] Sep, [facility] [place] [facility] [address] [id number] [place] [address] 58[address] Sep, [facility] [place] [facility] [address] [id number] [place] [address] 3316 Aug, [facility] [place] [facility] [address] [id number] [place] [address] 3112 Aug, [facility] [place] [facility] [address] [id number] [place] [address] 2096 Aug, [facility] [place] [facility] [address] [id number] [place] [address]- 8086 Aug, [facility] [place] [facility] [address] [id number] [place] [address]- 8626 Aug, [facility] [place] [facility] [address] [id number] [place] [address]- 7854 Aug, [facility] [place] [facility] [address] [id number] [place] [address]- 1490 Aug, [facility] [place] [facility] [address] [id number] [place] [address]- 3444 Aug, [facility] [place] [facility] [address] [id number] [place] [address]- 6669 Aug, [facility] [place] [facility] [address] [id number] [place] [address]- 6298 Jul, [facility] [place] [facility] [address] [id number] [place] [address]- 6329 Jul, [facility] [place] [facility] [address] [id number] [place] [address]- 3854 Jul, [facility] [place] [facility] [address] [id number] [place] [address]- 7326 Jul, [facility] [place] [facility] [address] [id number] [place] [address]- 2680 Jul, [facility] [place] [facility] [address] [id number] [place] [address]- 7544 Jul, [facility] [place] [facility] [address] [id number] [place] [address]- 4184 Jul, [facility] [place] [facility] [address] [id number] [place] [address]- 9854 Jul, [facility] [place] [facility] [address] [id number] [place] [address]- 5657 Jul, [facility] [place] [facility] [address] [id number] [place] [address]- 9519 Jul, [facility] [place] [facility] [address] [id number] [place] [address]- 6090 Jun, [facility] [place] [facility] [address] [id number] [place] [address]- 5577 Jun, [facility] [place] [facility] [address] [id number] [place] [address]- 2278 Jun, [facility] [place] [facility] [address] [id number] [place] [address]- 2792 Jun, [facility] [place] [facility] [address] [id number] [place] [address]- 2265 Jun, [facility] [place] [facility] [address] [id number] [place] [address]- 9307 Jun, [facility] [place] [facility] [address] [id number] [place] [address]- 5234 30 May, 2013 [facility] [place] [facility] [address] [id number] [place] [address]- 5932 30 May, 2013 [facility] [place] [facility] [address] [id number] [place] [address]- 3031 29 May, 2013 [facility] [place] [facility] [address] [id number] [place] [address]- 2541 29 Sep, 2013 [facility] [place] [facility] [address] [id number] [place] [address]- 2549 24 Sep, 2013 [facility] [place] [facility] [address] [id number] [place] [address] 2546 24 Sep, 2013 [facility] [place] [facility] [address] [id number] [place] [address]- 2548 22 May, 2013 [facility] [place] [facility] [address] [id number] [place] [address] [address] May, [facility] [place] [facility] [address] [id number] [place] [address]- 6012 05 May, 2013 [facility] [place] [facility] [address] [id number] [place] [address]- 0786 May, [facility] [place] [facility] [address] [id number] [place] [address]- 5522 May, [facility] [place] [facility] [address] [id number] [place] [address]- 4802 May, [facility] [place] [facility] [address] [id number] [place] [address]- 6257 Apr, [facility] [place] [facility] [address] [id number] [place] [address]- 2225 Apr, [facility] [place] [facility] [address] [id number] [place] [address]- 3321 Apr, [facility] [place] [facility] [address] [id number] [place] [address]- 4710 Apr, [facility] [place] [facility] [address] [id number] [place] [address]- 7937 Apr, [facility] [place] [facility] [address] [id number] [place] [address]- 8712 Apr, [facility] [place] [facility] [address] [id number] [place] [address]- 5636 Apr, [facility] [place] [facility] [address] [id number] [place] [address]- 8319 Apr, [facility] [place] [facility] [address] [id number] [place] [address]- 2621 Apr, [facility] [place] [facility] [address] [id number] [place] [address]- 4110 Apr, [facility] [place] [facility] [address] [id number] [place] [address]- 5882 Apr, [facility] [place] [facility] [address] [id number] [place] [address]- 7528 Apr, [facility] [place] [facility] [address] [id number] [place] [address]- 9367 Apr, [facility] [place] [facility] [address] [id number] [place] [address]- 9510 Apr, [facility] [place] [facility] [address] [id number] [place] [address]- 1436 Apr, [facility] [place] [facility] [address] [id number] [place] [address]- 1309 Apr, [facility] [place] [facility] [address] [id number] [place] [address]- 8165 Apr, [facility] [place] [facility] [address] [id number] [place] [address]- 5240 Apr, [facility] [place] [facility] [address] [id number] [place] [address]- 1769 Apr, [facility] [place] [facility] [address] [id number] [place] [address]- 2296 Apr, [facility] [place] [facility] [address] [id number] [place] [address]- 1999 Apr, [facility] [place] [facility] [address] [id number] [place] [address]- 0905 Apr, [facility] [place] [facility] [address] [id number] [place] [address]- 2376 Apr, [facility] [place] [facility] [address] [id number] [place] [address]- 2967 Mar, [facility] [place] [facility] [address] [id number] [place] [address]- 6080 Mar, [facility] [place] [facility] [address] [id number] [place] [address]- 0808 Mar, [facility] [place] [facility] [address] [id number] [place] [address]- 0103 Mar, [facility] [place] [facility] [address] [id number] [place] [address]- 2603 Mar, [facility] [place] [facility] [address] [id number] [place] [address]- 0650 Mar, [facility] [place] [facility]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
--- OUTSIDE RECORDS SUMMARY | 2018-06-07 11:32 | XMS REPORT ---
Author Author ELISEO BENDER Organization [facility] Address [address] [place] [address] Care Team Providers Care Associate Director Name Role Phone ELISEO BENDER Unavailable PROBLEMS Type Condition ICD9-CM Code NAP01-WZ Code Onset Dates Condition Status SNOMED Code Problem Chest pain, unspecified type R07.9 Active 82423549 Problem Depression, unspecified depression type F32.9 Active 15944724 Problem Anxiety F41.9 Active 07318383 Problem BMI 30.0-30.9,adult Z68.30 Active 508025845 Problem Moderate episode of recurrent major depressive disorder F33.1 Active 133103223 Problem Thyroid cancer C73 Active 880261846 Problem Postoperative hypothyroidism E89.0 Active 96717001 Problem BMI 31.0-31.9,adult Z68.31 Active 532937758 Problem Other atopic dermatitis L20.89 Active 41732757 Problem Low back pain, unspecified back pain laterality, with sciatica presence unspecified M54.5 Active 592331748 Problem Neuropathy G62.9 Active 807302814 Problem Other chronic pain G89.29 Active 39195877 Problem Dysthymia F34.1 Active 09235590 Problem 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 Active 98875993 Problem Insomnia G47.00 Active 490263804 Problem Gastro-esophageal reflux disease without esophagitis K21.9 Active 753894997 Problem Rheumatoid arthritis, involving unspecified site, unspecified rheumatoid factor presence M06.9 Active 50369898 ALLERGIES No Information ENCOUNTERS Encounter Location Date Diagnosis [facility] [id number] [address] Apr, Low back pain, unspecified back pain laterality, with sciatica presence unspecified M54.5 [facility] [id number] [address] Apr, Right ear pain H92.01 [facility] [id number] [place] [address] 58651- 1244 08 Apr, 2018 Postoperative hypothyroidism E89.0 [facility] [id number] [place] [address] 74196- 4008 Apr, Low back pain, unspecified back pain laterality, with sciatica presence unspecified M54.5 [facility] [id number] [place] [address] 86551- 0022 Mar, Breast cancer screening Z12.39 and Discharge from nipple N64.52 [facility] [id number] [place] [address] 12525- 2270 Mar, Low back pain, unspecified back pain laterality, with sciatica presence unspecified M54.5 [facility] [id number] [place] [address] 78994- 2534 Mar, Low back pain, unspecified back pain laterality, with sciatica presence unspecified M54.5 ; Rheumatoid arthritis, involving unspecified site, unspecified rheumatoid factor presence M06.9 ; Breast cancer screening Z12.39 and Moderate episode of recurrent major depressive disorder F33.1 [facility] [id number] [place] [address] 14944- 1751 Feb, Low back pain, unspecified back pain laterality, with sciatica presence unspecified M54.5 [facility] [id number] [place] [address] 14070- 2245 January, BMI 30.0-30.9,adult Z68.30 [facility] [id number] [place] [address] 41140- 5020 January, Low back pain, unspecified back pain laterality, with sciatica presence unspecified M54.5 [facility] [id number] [place] [address] 51618- 5581 January, [facility] [id number] [place] [address] 15762- 7979 Dec, Low back pain, unspecified back pain laterality, with sciatica presence unspecified M54.5 [facility] [id number] [place] [address] 64118- 6418 Nov, Low back pain, unspecified back pain laterality, with sciatica presence unspecified M54.5 [facility] [id number] [place] [address] 96048- 5518 Nov, [facility] [address] [address]57- 7330 Nov, Low back pain, unspecified back pain laterality, with sciatica presence unspecified M54.5 ; Other chronic pain G89.29 ; Rheumatoid arthritis, involving unspecified site, unspecified rheumatoid factor presence M06.9 and Dysthymia F34.1 [facility] [id number] [place] [address] 18997- 6219 Oct, Low back pain, unspecified back pain laterality, with sciatica presence unspecified M54.5 [facility] [id number] [place] [address] 15247- 4725 Sep, Low back pain, unspecified back pain laterality, with sciatica presence unspecified M54.5 [facility] [id number] [place] [address] 57020 -0399 Sep, Fever R50.9 and URI, acute J06.9 [facility] [id number] [place] [address] 86365- 6810 Aug, [facility] [id number] [place] [address] 62951- 8244 Aug, Low back pain, unspecified back pain laterality, with sciatica presence unspecified M54.5 [facility] [id number] [place] [address] 18210- 5475 Jul, Low back pain, unspecified back pain laterality, with sciatica presence unspecified M54.5 [facility] [id number] [place] [address] 94463 -2999 Jul, Nausea R11.0 ; Fever and chills R50.9 ; UTI symptoms R39.9 and Hematuria, unspecified type R31.9 [address] [id number] [place] [address] 36424- 7269 Jul, [facility] [address] 49515- 0193 Jun, Low back pain, unspecified back pain laterality, with sciatica presence unspecified M54.5 [facility] [address] 70268- 8830 Jun, BMI 31.0-31.9,adult Z68.31 [facility] [address] 04393- 6479 Jun, Neuropathy G62.9 [facility] [facility] [address] 61423- 8271 Jun, Low back pain, unspecified back pain laterality, with sciatica presence unspecified M54.5 [facility] [address] 52947- 5462 Jun, Encounter for immunization Z23 [place] [address] 66341- 4398 Jun, BMI 31.0-31.9,adult Z68.31 [facility] [id number] [place] [address] 14538- 7544 Jun, Low back pain, unspecified back pain laterality, with sciatica presence unspecified M54.5 [facility] [id number] [place] [address] 92560- 5722 May, Low back pain, unspecified back pain laterality, with sciatica presence unspecified M54.5 ; Other chronic pain G89.29 ; Plantar fasciitis M72.2 ; Rheumatoid arthritis, involving unspecified site, unspecified rheumatoid factor presence M06.9 and History of alcohol abuse Z87.898 [address] [place] [address] 08 May, 2017 Anxiety F41.9 and Low back pain, unspecified back pain laterality, with sciatica presence unspecified M54.5 [facility] [address] 71503- 0183 11 Apr, 2017 Anxiety F41.9 and Low back pain, unspecified back pain laterality, with sciatica presence unspecified M54.5 [facility] [address] 74298- 9422 18 Mar, 2017 Acute right-sided low back pain without sciatica M54.5 ; Rash R21 ; Right flank pain R10.9 ; Lipid screening Z13.220 ; Other chronic pain G89.29 ; 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 ; Postoperative hypothyroidism E89.0 and Breast cancer screening Z12.39 [address] [address] 62816- 7156 14 Mar, 2017 Anxiety F41.9 and Low back pain, unspecified back pain laterality, with sciatica presence unspecified M54.5 [facility] [address] 43644- 6608 13 Mar, 2017 Acute right-sided low back pain without sciatica M54.5 [facility] [address] 38492- 8647 07 Mar, 2017 Anxiety F41.9 [facility] [facility] [address] 29796- 7184 28 Feb, 2017 Right flank pain R10.9 and Anxiety F41.9 [place] [facility] [address] 66843- 4029 16 Feb, 2017 BMI 31.0-31.9,adult Z68.31 [place] [facility] [address] 90958- 8110 16 Feb, 2017 Low back pain, unspecified back pain laterality, with sciatica presence unspecified M54.5 and Anxiety F41.9 [facility] [address] [place] [address] January, Abscess of toe of right foot L02.611 and Other atopic dermatitis L20.89 [place] [facility] [address] [id number]- 1013 January, Low back pain, unspecified back pain laterality, with sciatica presence unspecified M54.5 and Anxiety F41.9 [place] [facility] [address] 80521- 2575 Dec, Anxiety F41.9 and Low back pain, unspecified back pain laterality, with sciatica presence unspecified M54.5 [facility] [address] 47449 -3555 Dec, Scabies B86 [address] 75769- 2417 Nov, Rash R21 ; Other chronic pain G89.29 ; 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 ; Postoperative hypothyroidism E89.0 ; Breast cancer screening Z12.39 and Lipid screening Z13.220 [address] [address] 066804- 5609 Nov, Anxiety F41.9 and Low back pain, unspecified back pain laterality, with sciatica presence unspecified M54.5 [facility] [facility] [address] 05657- 9129 Oct, Anxiety F41.9 and Low back pain, unspecified back pain laterality, with sciatica presence unspecified M54.5 [address] [address] 98171- 1959 Sep, Anxiety F41.9 and Low back pain, unspecified back pain laterality, with sciatica presence unspecified M54.5 [place] [address] 46775- 7270 Sep, Anxiety F41.9 [address] 54445- 6711 Sep, Gastro-esophageal reflux disease without esophagitis K21.9 [facility] [address] [place] [address] [id number] Sep, Dental examination Z01.20 [facility] [id number] [place] [address] 60870- 7302 Sep, Low back pain, unspecified back pain laterality, with sciatica presence unspecified M54.5 and Postoperative hypothyroidism E89.0 [facility] [id number] [place] [address] 56368- 3172 Aug, Anxiety F41.9 [facility] [address] 14603- 8882 Aug, [facility] [id number] [place] [address] 90705- 8474 Aug, Low back pain, unspecified back pain laterality, with sciatica presence unspecified M54.5 ; Other chronic pain G89.29 ; Thyroid cancer C73 and Postoperative hypothyroidism E89.0 [facility] [id number] [place] [address] 90728- 6822 Jul, [facility] [id number] [place] [address] 08393- 8787 Jul, Anxiety F41.9 [facility] [id number] [place] [address] 29462- 0769 Jul, [facility] [id number] [place] [address] 56682- 1246 18 Jul, 2016 BMI 29.0-29.9,adult Z68.29 [facility] [id number] [place] [address] 03793- 1901 17 Jul, 2016 [facility] [id number] [place] [address] 76438- 7889 08 Jul, 2016 BMI 30.0-30.9,adult Z68.30 [facility] [address] 45285- 6980 Jul, Low back pain, unspecified back pain laterality, with sciatica presence unspecified M54.5 and Anxiety F41.9 [address] 11873- 5937 Jun, 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 [address] [address] 54325- 3839 Jun, BMI 30.0-30.9,adult Z68.30 [address] [address] 46563- 7260 Jun, [place] [address] 482486- 2229 Jun, 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 ; Dysthymia F34.1 ; Encounter for immunization Z23 and Other chronic pain G89.29 [address] [place] 45629- 8103 Jun, Low back pain, unspecified back pain laterality, with sciatica presence unspecified M54.5 [address] [facility] [address] 41578- 3051 Jun, BMI 30.0-30.9,adult Z68.30 [address] [facility] [address] 65824- 2694 Jun, Anxiety F41.9 [address] [address] 73951- 7468 May, 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 [address] [place] [address] 85974- 5173 May, Constipation, unspecified constipation type K59.00 [address] [place] 27414- 4784 May, Low back pain, unspecified back pain laterality, with sciatica presence unspecified M54.5 [address] 13892- 9551 May, [facility] [address] [place] [address] 86025- 2988 May, Constipation, unspecified constipation type K59.00 [facility] [id number] [place] [address] 09419- 6394 May, Anxiety F41.9 [facility] [address] 53125- 7481 Apr, BMI 31.0-31.9,adult Z68.31 [address] [facility] [id number] [place] [address] 33914- 7157 Apr, Thyroid goiter E04.9 [facility] [id number] [place] [address] 90984- 7605 Apr, [place] [facility] [address] 08119- 7066 Apr, Low back pain, unspecified back pain laterality, with sciatica presence unspecified M54.5 [facility] [facility] [id number] [place] [address] 07532- 6341 Apr, [facility] [id number] [place] [address] 27118- 0778 Apr, Constipation, unspecified constipation type K59.00 ; Thyroid nodule E04.1 ; Family history of colon cancer Z80.0 and 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 [facility] [facility] [id number] [place] [address] 19264- 4317 Apr, Anxiety F41.9 [facility] [id number] [place] [address] 62481- 6861 Mar, [facility] [id number] [place] [address] 76927- 7531 Mar, Low back pain, unspecified back pain laterality, with sciatica presence unspecified M54.5 [facility] [facility] [id number] [place] [address] 65111- 7121 Mar, BMI 32.0-32.9,adult Z68.32 [facility] [id number] [place] [address] 71819- 9077 Feb, Anxiety F41.9 [facility] [facility] [id number] [place] [address] 32873- 3624 Feb, Depression, unspecified depression type F32.9 [address] [facility] [address] 12962- 9997 Feb, BMI 32.0-32.9,adult Z68.32 [address] [facility] [id number] [place] [address] 61844- 2365 Feb, Low back pain, unspecified back pain laterality, with sciatica presence unspecified M54.5 [address] [facility] [id number] [place] [address] 07296- 9350 Feb, [address] [facility] [address] 44445- 5146 Feb, BMI 32.0-32.9,adult Z68.32 [address] [id number] [place] [address] 18278- 0278 Feb, Anxiety F41.9 [facility] [id number] [place] [address] 11347- 1852 January, BMI 32.0-32.9,adult Z68.32 [facility] [facility] [id number] [place] [address] 91521- 6153 January, Low back pain, unspecified back pain laterality, with sciatica presence unspecified M54.5 ; Other chronic pain G89.29 ; Weight gain R63.5 and Rheumatoid arthritis, involving unspecified site, unspecified rheumatoid factor presence M06.9 [address] [facility] [id number] [place] [address] 03876- 4256 January, Low back pain, unspecified back pain laterality, with sciatica presence unspecified M54.5 [address] [facility] [id number] [place] [address] 91085- 3712 January, BMI 32.0-32.9,adult Z68.32 [facility] [address] 94819- 0519 January, BMI 32.0-32.9,adult Z68.32 [facility] [address] 31573- 5057 January, BMI 32.0-32.9,adult Z68.32 [facility] [address] 24835- 9800 Dec, Insomnia G47.00 and Dysthymia F34.1 [address] [place] [id number] [place] [address] 51420- 6763 Dec, [address] 46011- 7552 Dec, Other chronic pain G89.29 ; Neuropathy G62.9 and Dysthymia F34.1 [facility] [id number] [place] [address] 99785- 1587 Dec, [facility] [id number] [place] [address] 21814- 0409 Nov, [facility] [id number] [place] [address] 70939- 3362 Nov, [facility] [id number] [place] [address] 22765- 5184 Nov, [facility] [id number] [place] [address] 16284- 3872 Oct, [facility] [id number] [place] [address] 43497- 4297 Oct, [facility] [id number] [place] [address] 70197- 1254 Oct, Family history of diabetes mellitus Z83.3 [address] [place] [address] [address]- 4781 04 Oct, 2015 [facility] [id number] [place] [address] 52338- 6648 Sep, [facility] [id number] [place] [address] 63425- 0456 Sep, Eye pain, right H57.11 and Other chronic pain G89.29 [facility] [id number] [place] [address] 07522- 3380 Sep, [facility] [id number] [place] [address] 19005- 4319 Sep, [facility] [id number] [place] [address] 74020- 3469 Sep, 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 ; Neuropathy G62.9 ; Low back pain, unspecified back pain laterality, with sciatica presence unspecified M54.5 ; Gastro-esophageal reflux disease without esophagitis K21.9 and Encounter for long-term (current) use of other medications V58.69 [facility] [id number] [place] [address] 92254- 9852 Sep, [facility] [id number] [place] [address] 45593- 2137 Sep, [facility] [address] [place] [address] 93222- 0687 Sep, [facility] [id number] [place] [address] 32428- 8512 Sep, [facility] [address] [place] [address] 23765- 7610 Aug, [facility] [id number] [place] [address] 63869- 8903 Aug, Family history of diabetes mellitus Z83.3 [facility] [address] [place] [address] 18582- 9845 Aug, [facility] [address] [place] [address] 21244- 0002 Aug, [facility] [id number] [place] [address] 36546- 6949 Aug, Family history of diabetes mellitus Z83.3 [facility] [id number] [place] [address] 01194- 1028 Aug, Weight gain R63.5 ; Edema, unspecified R60.9 ; Family history of diabetes mellitus Z83.3 and Gastroesophageal reflux disease with esophagitis K21.0 [facility] [id number] [place] [address] 95796- 4203 Aug, [facility] [id number] [place] [address] 71358- 5846 Aug, [facility] [id number] [place] [address] 21778- 2930 Jul, [facility] [id number] [place] [address] 25117- 4912 Jul, [facility] [id number] [place] [address] 51224- 8013 Jul, [facility] [id number] [place] [address] 27768- 0698 Jun, [facility] [id number] [place] [address] 88254- 2828 Jun, Nose pain J34.89 ; Encounter for immunization Z23 ; Screening for breast cancer Z12.39 and Encounter for long-term (current) use of other medications V58.69 [facility] [id number] [place] [address] 87954- 4515 Jun, [facility] [id number] [place] [address] 37735891- 6886 May, [facility] [id number] [place] [address] 85713- 9621 May, [facility] [place] [facility] [address] [id number] [place] [address]- 7025 May, 2014 [facility] [place] [facility] [address] [id number] [place] [address]- 8711 May, 2014 [facility] [place] [facility] [address] [id number] [place] [address]- 7058 May, [facility] [place] [facility] [address] [id number] [place] [address]- 6892 May, [facility] [place] [facility] [address] [id number] [place] [address]- 8641 May, [facility] [place] [facility] [address] [id number] [place] [address]- 7187 Apr, [facility] [place] [facility] [address] [id number] [place] [address]- 7206 Apr, [facility] [place] [facility] [address] [id number] [place] [address]- 8029 Apr, [facility] [place] [facility] [address] [facility] [id number] [place] [address]- 9415 Mar, [facility] [place] [facility] [address] [facility] [id number] [place] [address]- 9364 Mar, [facility] [place] [facility] [id number] [place] [address]- 8998 Mar, Lesion of left shoulder 709.9 [facility] [place] [facility] [address] [id number] [place] [address]- 2826 Mar, [facility] [place] [facility] [address] [facility] [id number] [place] [address]- 1775 Mar, [facility] [place] [facility] [address] [facility] [id number] [place] [address]- 6794 Mar, [facility] [place] [facility] [address] [facility] [id number] [place] [address]- 3391 Feb, [facility] [place] [facility] [address] [address]- 9223 Feb, [facility] [address] [address]- 2207 Feb, Unspecified backache 724.5 ; Weight gain 783.1 ; Hypothyroid 244.9 ; Edema 782.3 and Diaphoresis 780.8 [facility] [address] [address]- 4949 Feb, [facility] [id number] [address]- 3973 Feb, [facility] [id number] [place] [address] 56775- 2012 Feb, [facility] [id number] [address] Feb, [facility] [id number] [address] Feb, [facility] [id number] [address] January, [facility] [id number] [address] January, [facility] [id number] [address] 14 Dec, 2014 [facility] [id number] [address] 13 Dec, 2014 [facility] [id number] [address] 16 Nov, 2014 [facility] [id number] [address] Nov, [facility] [place] [facility] [id number] [address] 16 Nov, 2014 [facility] [id number] [address] Nov, [facility] [place] [facility] [address] [id number] [place] [address] 16 Nov, 2014 [facility] [place] [facility] [address] [id number] [place] [address] 16 Nov, 2014 [facility] [place] [facility] [address] [id number] [place] [address] Nov, [facility] [place] [facility] [address] [id number] [place] [address] Nov, [facility] [place] [facility] [address] [id number] [place] [address] Nov, [facility] [place] [facility] [address] [id number] [place] [address] Nov, [facility] [place] [facility] [address] [id number] [place] [address] Nov, [facility] [place] [facility] [address] [id number] [place] [address] Nov, [facility] [place] [facility] [address] [id number] [place] [address] Nov, [facility] [place] [facility] [address] [id number] [place] [address] Oct, [facility] [place] [facility] [address] [id number] [place] [address] 4336 Oct, [facility] [place] [facility] [address] [id number] [place] [address] 8404 Sep, [facility] [place] [facility] [address] [id number] [place] [address] 8619 Sep, [facility] [place] [facility] [address] [id number] [place] [address]- 9373 Aug, [facility] [place] [facility] [address] [id number] [place] [address] 8639 Aug, [facility] [place] [facility] [address] [id number] [place] [address]- 5540 Aug, [facility] [place] [facility] [address] [id number] [place] [address]- 2289 Aug, [facility] [place] [facility] [address] [id number] [place] [address]- 8108 Aug, [facility] [place] [facility] [address] [id number] [place] [address]- 5822 Aug, [facility] [place] [facility] [address] [id number] [place] [address]- 9591 Aug, [facility] [place] [facility] [address] [id number] [place] [address]- 9273 Aug, [facility] [place] [facility] [address] [id number] [place] [address]- 5652 Aug, [facility] [place] [facility] [address] [id number] [place] [address]- 0198 Jul, [facility] [place] [facility] [address] [id number] [place] [address]- 0756 Jul, [facility] [place] [facility] [address] [id number] [place] [address]- 0376 Jul, [facility] [place] [facility] [address] [id number] [place] [address]- 9019 Jul, [facility] [place] [facility] [address] [id number] [place] [address]- 8441 Jul, [facility] [place] [facility] [address] [id number] [place] [address]- 7961 Jul, [facility] [place] [facility] [address] [id number] [place] [address]- 0860 Jul, [facility] [place] [facility] [address] [id number] [place] [address]- 7733 Jul, [facility] [place] [facility] [address] [id number] [place] [address]- 6457 14 Jul, 2014 [facility] [place] [facility] [address] [id number] [place] [address]- 6935 Jul, [facility] [place] [facility] [address] [id number] [place] [address]- 0131 Jun, [facility] [place] [facility] [address] [id number] [place] [address]- 6562 Jun, [facility] [place] [facility] [address] [id number] [place] [address]- 3544 Jun, [facility] [place] [facility] [address] [id number] [place] [address]- 5802 Jun, [facility] [place] [facility] [address] [id number] [place] [address]- 4618 Jun, [facility] [place] [facility] [address] [id number] [place] [address]- 9024 Jun, [facility] [place] [facility] [address] [id number] [place] [address]- 3771 30 May, 2013 [facility] [place] [facility] [address] [id number] [place] [address]- 0214 30 Sep, 2013 [facility] [place] [facility] [address] [id number] [place] [address]- 2545 29 May, 2013 [facility] [place] [facility] [address] [id number] [place] [address]- 4887 29 May, 2013 [facility] [place] [facility] [address] [id number] [place] [address]- 254 24 Sep, 2013 [facility] [place] [facility] [address] [id number] [place] [address]- 2548 24 Sep, 2013 [facility] [place] [facility] [address] [id number] [place] [address]- 2548 22 May, 2013 [facility] [place] [facility] [address] [id number] [place] [address]- 2547 22 May, 2013 [facility] [place] [facility] [address] [id number] [place] [address]- 2403 May, [facility] [place] [facility] [address] [id number] [place] [address]- 7521 05 May, 2013 [facility] [place] [facility] [address] [id number] [place] [address]- 5859 May, [facility] [place] [facility] [address] [id number] [place] [address]- 3157 May, [facility] [place] [facility] [address] [id number] [place] [address]- 4171 Apr, [facility] [place] [facility] [address] [id number] [place] [address]- 4251 Apr, [facility] [place] [facility] [address] [id number] [place] [address]- 3904 Apr, [facility] [place] [facility] [address] [id number] [place] [address]- 3065 Apr, [facility] [place] [facility] [address] [id number] [place] [address]- 8064 Apr, [facility] [place] [facility] [address] [id number] [place] [address]- 6886 Apr, [facility] [place] [facility] [address] [id number] [place] [address]- 8255 Apr, [facility] [place] [facility] [address] [id number] [place] [address]- 4394 Apr, [facility] [place] [facility] [address] [id number] [place] [address]- 6960 Apr, [facility] [place] [facility] [address] [id number] [place] [address]- 9669 Apr, [facility] [place] [facility] [address] [id number] [place] [address]- 3333 Apr, [facility] [place] [facility] [address] [id number] [place] [address]- 8736 Apr, [facility] [place] [facility] [address] [id number] [place] [address]- 0434 Apr, [facility] [place] [facility] [address] [id number] [place] [address]- 0630 Apr, [facility] [place] [facility] [address] [id number] [place] [address]- 3572 Apr, [facility] [place] [facility] [address] [id number] [place] [address]- 2990 Apr, [facility] [place] [facility] [address] [id number] [place] [address]- 1994 Apr, [facility] [place] [facility] [address] [id number] [place] [address]- 3913 Apr, [facility] [place] [facility] [address] [id number] [place] [address]- 5999 Apr, [facility] [place] [facility] [address] [id number] [place] [address]- 0590 Apr, [facility] [place] [facility] [address] [id number] [place] [address]- 6002 Apr, [facility] [place] [facility] [address] [id number] [place] [address]- 1827 Apr, [facility] [place] [facility] [address] [id number] [place] [address]- 4245 Apr, [facility] [place] [facility] [address] [id number] [place] [address]- 8038 Mar, [facility] [place] [facility] [address] [id number] [place] [address]- 0144 Mar, [facility] [place] [facility] [address] [id number] [place] [address]- 6297 Mar, [facility] [place] [facility]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
--- OUTSIDE RECORDS SUMMARY | 2018-06-07 11:33 | XMS REPORT ---
Author Author ELISEO BENDER [facility] Address [address] [place] [address] Care Team Providers Care Credit Risk Management Director Name Role Phone ELISEO BENDER Unavailable PROBLEMS Type Condition ICD9-CM Code EDJ40-MU Code Onset Dates Condition Status SNOMED Code Problem Chest pain, unspecified type R07.9 Active 42320616 Problem Depression, unspecified depression type F32.9 Active 99232779 Problem Anxiety F41.9 Active 73203413 Problem BMI 30.0-30.9,adult Z68.30 Active 514037735 Problem Moderate episode of recurrent major depressive disorder F33.1 Active 399791298 Problem Thyroid cancer C73 Active 080437876 Problem Postoperative hypothyroidism E89.0 Active 07831722 Problem BMI 31.0-31.9,adult Z68.31 Active 549248784 Problem Other atopic dermatitis L20.89 Active 79300556 Problem Low back pain, unspecified back pain laterality, with sciatica presence unspecified M54.5 Active 714577333 Problem Neuropathy G62.9 Active 125322416 Problem Other chronic pain G89.29 Active 74602786 Problem Dysthymia F34.1 Active 98961978 Problem 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 Active 08066345 Problem Insomnia G47.00 Active 245830035 Problem Gastro-esophageal reflux disease without esophagitis K21.9 Active 284553571 Problem Rheumatoid arthritis, involving unspecified site, unspecified rheumatoid factor presence M06.9 Active 21012864 ALLERGIES No Information ENCOUNTERS Encounter Location Date Diagnosis [facility] [address] [facility] [id number] [address] Apr, Postoperative hypothyroidism E89.0 [facility] [address] [id number] [address] Apr, Low back pain, unspecified back pain laterality, with sciatica presence unspecified M54.5 [place] [id number] [place] [address] 74924- 6924 17 Mar, 2018 Breast cancer screening Z12.39 and Discharge from nipple N64.52 [place] [id number] [place] [address] 24206- 1772 Mar, Low back pain, unspecified back pain laterality, with sciatica presence unspecified M54.5 [place] [id number] [place] [address] 25993- 6635 Mar, Low back pain, unspecified back pain laterality, with sciatica presence unspecified M54.5 ; Rheumatoid arthritis, involving unspecified site, unspecified rheumatoid factor presence M06.9 ; Breast cancer screening Z12.39 and Moderate episode of recurrent major depressive disorder F33.1 [place] [id number] [place] [address] 00564- 7518 Feb, Low back pain, unspecified back pain laterality, with sciatica presence unspecified M54.5 [place] [id number] [place] [address] 68099- 0215 January, BMI 30.0-30.9,adult Z68.30 [place] [id number] [place] [address] 99574- 2725 January, Low back pain, unspecified back pain laterality, with sciatica presence unspecified M54.5 [place] [id number] [place] [address] 80084- 4263 January, [place] [id number] [place] [address] 32591- 2740 Dec, Low back pain, unspecified back pain laterality, with sciatica presence unspecified M54.5 [place] [id number] [place] [address] 81415- 3127 Nov, Low back pain, unspecified back pain laterality, with sciatica presence unspecified M54.5 [place] [id number] [place] [address] 67899- 1522 Nov, [place] [id number] [place] [address] 38470- 6957 Nov, Low back pain, unspecified back pain laterality, with sciatica presence unspecified M54.5 ; Other chronic pain G89.29 ; Rheumatoid arthritis, involving unspecified site, unspecified rheumatoid factor presence M06.9 and Dysthymia F34.1 [place] [address] 27166- 4665 Oct, Low back pain, unspecified back pain laterality, with sciatica presence unspecified M54.5 [place] [address] 54489- 0805 Sep, Low back pain, unspecified back pain laterality, with sciatica presence unspecified M54.5 [facility] [address] 6[address]40 -9534 Sep, Fever R50.9 and URI, acute J06.9 [place] [address] 73976- 4313 Aug, [place] [address] 04616- 4644 Aug, Low back pain, unspecified back pain laterality, with sciatica presence unspecified M54.5 [place] [id number] [place] [address] 97174- 5176 Jul, Low back pain, unspecified back pain laterality, with sciatica presence unspecified M54.5 [facility] [id number] [place] [address] 92951 -4810 15 Jul, 2017 Nausea R11.0 ; Fever and chills R50.9 ; UTI symptoms R39.9 and Hematuria, unspecified type R31.9 [place] [id number] [place] [address] 06201- 2939 02 Jul, 2017 [place] [address] 43416- 6981 Jun, Low back pain, unspecified back pain laterality, with sciatica presence unspecified M54.5 [place] [id number] [place] [address] 83805- 4303 Jun, BMI 31.0-31.9,adult Z68.31 [place] [id number] [place] [address] 58482- 8507 Jun, Neuropathy G62.9 [place] [address] 910536- 6166 Jun, Low back pain, unspecified back pain laterality, with sciatica presence unspecified M54.5 [place] [address] 48424- 2957 Jun, Encounter for immunization Z23 [place] [id number] [place] [address] 02191- 6896 Jun, BMI 31.0-31.9,adult Z68.31 [place] [id number] [place] [address] 19484- 0050 Jun, Low back pain, unspecified back pain laterality, with sciatica presence unspecified M54.5 [place] [id number] [place] [address] 36952- 9817 May, Low back pain, unspecified back pain laterality, with sciatica presence unspecified M54.5 ; Other chronic pain G89.29 ; Plantar fasciitis M72.2 ; Rheumatoid arthritis, involving unspecified site, unspecified rheumatoid factor presence M06.9 and History of alcohol abuse Z87.898 [place] [id number] [place] [address] 55972- 0242 May, Anxiety F41.9 and Low back pain, unspecified back pain laterality, with sciatica presence unspecified M54.5 [place] [id number] [place] [address] 37072- 3993 Apr, Anxiety F41.9 and Low back pain, unspecified back pain laterality, with sciatica presence unspecified M54.5 [place] [id number] [place] [address] 90213- 3205 18 Mar, 2017 Acute right-sided low back pain without sciatica M54.5 ; Rash R21 ; Right flank pain R10.9 ; Lipid screening Z13.220 ; Other chronic pain G89.29 ; 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 ; Postoperative hypothyroidism E89.0 and Breast cancer screening Z12.39 [place] [address] 90595- 7974 14 Mar, 2017 Anxiety F41.9 and Low back pain, unspecified back pain laterality, with sciatica presence unspecified M54.5 [place] [address] 90412- 9070 13 Mar, 2017 Acute right-sided low back pain without sciatica M54.5 [place] [address] 64542- 0642 07 Mar, 2017 Anxiety F41.9 [place] [address] 66377- 2899 28 Feb, 2017 Right flank pain R10.9 and Anxiety F41.9 [place] [address] 36427- 3384 16 Feb, 2017 BMI 31.0-31.9,adult Z68.31 [place] [address] 47902- 8028 Feb, Low back pain, unspecified back pain laterality, with sciatica presence unspecified M54.5 and Anxiety F41.9 [facility] [id number] [place] [address] 93791 -0177 January, Abscess of toe of right foot L02.611 and Other atopic dermatitis L20.89 [place] [address] 34984- 8591 January, Low back pain, unspecified back pain laterality, with sciatica presence unspecified M54.5 and Anxiety F41.9 [facility] [address] 48034- 9084 Dec, Anxiety F41.9 and Low back pain, unspecified back pain laterality, with sciatica presence unspecified M54.5 [facility] [address] 00582 -1650 Dec, Scabies B86 [place] [address] 9871 Nov, Rash R21 ; Other chronic pain G89.29 ; 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 ; Postoperative hypothyroidism E89.0 ; Breast cancer screening Z12.39 and Lipid screening Z13.220 [place] [address] 2457 Nov, Anxiety F41.9 and Low back pain, unspecified back pain laterality, with sciatica presence unspecified M54.5 [place] [address] 93270- 5772 Oct, Anxiety F41.9 and Low back pain, unspecified back pain laterality, with sciatica presence unspecified M54.5 [place] [address] 910622- 8916 Sep, Anxiety F41.9 and Low back pain, unspecified back pain laterality, with sciatica presence unspecified M54.5 [facility] [address] 31443- 8062 Sep, Anxiety F41.9 [place] [address] 56814- 3854 Sep, Gastro-esophageal reflux disease without esophagitis K21.9 [facility] [address] [id number] Sep, Dental examination Z01.20 [place] [address] 15358- 2845 Sep, Low back pain, unspecified back pain laterality, with sciatica presence unspecified M54.5 and Postoperative hypothyroidism E89.0 [facility] [id number] [place] [address] 90625- 1698 Aug, Anxiety F41.9 [facility] [address] 22034- 4485 Aug, [facility] [address] 58403- 1635 Aug, Low back pain, unspecified back pain laterality, with sciatica presence unspecified M54.5 ; Other chronic pain G89.29 ; Thyroid cancer C73 and Postoperative hypothyroidism E89.0 [place] [address] 16054- 5100 Jul, [place] [address] 10567- 7924 Jul, Anxiety F41.9 [facility] [address] 75707- 0503 Jul, [facility] [address] 57619- 2213 Jul, BMI 29.0-29.9,adult Z68.29 [place] [address] 71721- 1961 17 Jul, 2016 [facility] [address] 47799- 7225 Jul, BMI 30.0-30.9,adult Z68.30 [facility] [address] 25779- 8875 Jul, Low back pain, unspecified back pain laterality, with sciatica presence unspecified M54.5 and Anxiety F41.9 [facility] [id number] [place] [address] 95517- 2328 Jun, 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 [facility] [address] 49088- 4998 17 Jun, 2016 BMI 30.0-30.9,adult Z68.30 [facility] [id number] [place] [address] 55111- 9044 14 Jun, 2016 [facility] [id number] [place] [address] 22052- 4374 10 Jun, 2016 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 ; Dysthymia F34.1 ; Encounter for immunization Z23 and Other chronic pain G89.29 [place] [id number] [place] [address] 75917- 4155 06 Jun, 2016 Low back pain, unspecified back pain laterality, with sciatica presence unspecified M54.5 [place] [id number] [place] [address] 37154- 7047 Jun, BMI 30.0-30.9,adult Z68.30 [place] [address] 73110- 9709 Jun, Anxiety F41.9 [facility] [address] 54572- 9786 May, 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 [place] [id number] [place] [address] 29320- 9880 May, Constipation, unspecified constipation type K59.00 [place] [id number] [place] [address] 94360- 3842 May, Low back pain, unspecified back pain laterality, with sciatica presence unspecified M54.5 [facility] [id number] [place] [address] 95462- 7531 May, [facility] [address] 58118- 1315 May, Constipation, unspecified constipation type K59.00 [facility] [id number] [place] [address] 48637- 5068 May, Anxiety F41.9 [facility] [id number] [place] [address] 98189- 0905 Apr, BMI 31.0-31.9,adult Z68.31 [place] [address] 36051- 4858 Apr, Thyroid goiter E04.9 [place] [address] 31414- 4180 Apr, [place] [address] 28096- 3801 Apr, Low back pain, unspecified back pain laterality, with sciatica presence unspecified M54.5 [place] [address] 46758- 4649 Apr, [place] [address] 20181- 0752 Apr, Constipation, unspecified constipation type K59.00 ; Thyroid nodule E04.1 ; Family history of colon cancer Z80.0 and 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 [place] [id number] [place] [address] 21672- 4764 Apr, Anxiety F41.9 [place] [id number] [place] [address] 21952- 9862 Mar, [place] [id number] [place] [address] 80045- 3608 Mar, Low back pain, unspecified back pain laterality, with sciatica presence unspecified M54.5 [place] [id number] [place] [address] 35177- 3941 Mar, BMI 32.0-32.9,adult Z68.32 [place] [address] 91789- 0765 Feb, Anxiety F41.9 [place] [address] 99965- 7529 Feb, Depression, unspecified depression type F32.9 [place] [id number] [place] [address] 83736- 7863 30 Feb, 2016 BMI 32.0-32.9,adult Z68.32 [place] [id number] [place] [address] 34293- 5332 16 Feb, 2016 Low back pain, unspecified back pain laterality, with sciatica presence unspecified M54.5 [place] [id number] [place] [address] 33903- 1983 14 Feb, 2016 [place] [id number] [place] [address] 41101- 4337 Feb, BMI 32.0-32.9,adult Z68.32 [place] [id number] [place] [address] 90930- 5301 Feb, Anxiety F41.9 [place] [id number] [place] [address] 13776- 8209 January, BMI 32.0-32.9,adult Z68.32 [place] [id number] [place] [address] 91705- 9769 January, Low back pain, unspecified back pain laterality, with sciatica presence unspecified M54.5 ; Other chronic pain G89.29 ; Weight gain R63.5 and Rheumatoid arthritis, involving unspecified site, unspecified rheumatoid factor presence M06.9 [place] [id number] [place] [address] 42308- 4633 January, Low back pain, unspecified back pain laterality, with sciatica presence unspecified M54.5 [place] [id number] [place] [address] 13451- 5171 January, BMI 32.0-32.9,adult Z68.32 [place] [id number] [place] [address] 33851- 2389 January, BMI 32.0-32.9,adult Z68.32 [place] [id number] [place] [address] 03907- 3033 January, BMI 32.0-32.9,adult Z68.32 [facility] [id number] [place] [address] 93122- 5728 Dec, Insomnia G47.00 and Dysthymia F34.1 [facility] [id number] [place] [address] 41791- 7373 Dec, [facility] [id number] [place] [address] 22756- 5515 Dec, Other chronic pain G89.29 ; Neuropathy G62.9 and Dysthymia F34.1 [facility] [id number] [place] [address] 92753- 9436 Dec, [facility] [id number] [place] [address] 41973- 2368 Nov, [facility] [id number] [place] [address] 64815- 1364 Nov, [facility] [id number] [place] [address] 63103- 0651 Nov, [facility] [id number] [place] [address] 13424- 1605 Oct, [facility] [id number] [place] [address] 46566- 7868 Oct, [facility] [id number] [place] [address] 96617- 4485 Oct, Family history of diabetes mellitus Z83.3 [facility] [id number] [place] [address] 41852- 8005 Oct, [facility] [id number] [place] [address] 86940- 1965 Sep, [facility] [id number] [place] [address] 28625- 3585 Sep, Eye pain, right H57.11 and Other chronic pain G89.29 [facility] [id number] [place] [address] 72957- 2304 Sep, [facility] [id number] [place] [address] 85882- 1303 Sep, [facility] [id number] [place] [address] 18072- 3671 Sep, 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 ; Neuropathy G62.9 ; Low back pain, unspecified back pain laterality, with sciatica presence unspecified M54.5 ; Gastro-esophageal reflux disease without esophagitis K21.9 and Encounter for long-term (current) use of other medications V58.69 [facility] [id number] [place] [address] 47518- 1320 Sep, [place] [address] 97723- 2005 Sep, [facility] [id number] [place] [address] 16190- 4730 Sep, [facility] [id number] [place] [address] 81530- 8822 Sep, [facility] [id number] [place] [address] 15866- 4291 Aug, [facility] [id number] [place] [address] 33775- 6704 Aug, Family history of diabetes mellitus Z83.3 [facility] [id number] [place] [address] 15907- 4707 Aug, [facility] [address] 09932- 5756 Aug, [facility] [id number] [place] [address] 27032- 9279 Aug, Family history of diabetes mellitus Z83.3 [facility] [id number] [place] [address] 69615- 7671 14 Aug, 2015 Weight gain R63.5 ; Edema, unspecified R60.9 ; Family history of diabetes mellitus Z83.3 and Gastroesophageal reflux disease with esophagitis K21.0 [facility] [id number] [place] [address] 99300- 9586 14 Aug, 2015 [facility] [id number] [place] [address] 20277- 7544 Aug, [facility] [id number] [place] [address] 98632- 1633 Jul, [place] [id number] [place] [address] 21850- 3989 Jul, [place] [id number] [place] [address] 09363- 2458 Jul, [place] [id number] [place] [address] 97223- 8955 Jun, [place] [id number] [place] [address] 81099- 8946 Jun, Nose pain J34.89 ; Encounter for immunization Z23 ; Screening for breast cancer Z12.39 and Encounter for long-term (current) use of other medications V58.69 [place] [id number] [place] [address] 89257- 7832 Jun, [facility] [id number] [place] [address] 04373- 4917 23 May, 2015 [facility] [id number] [place] [address] 40929- 3188 18 May, 2015 [place] [id number] [place] [address] 93846- 9653 17 May, 2015 [facility] [id number] [place] [address] 59562- 5052 17 May, 2015 [facility] [id number] [place] [address] 40010- 8336 May, [facility] [address] [address]- 3965 May, [facility] [address] [address]- 9717 May, [facility] [address] [address]- 2586 Apr, [facility] [id number] [place] [address] 71953- 0358 Apr, [facility] [address], [place] [address]- 8086 Apr, [facility] [id number] [place] [address] 25646- 8562 Mar, [facility] [id number] [place] [address] 90551- 7553 Mar, [facility] [id number] [place] [address] 18169- 5856 Mar, Lesion of left shoulder 709.9 [facility] [address] [address]- 7416 Mar, [facility] [address] [address]- 8735 Mar, [facility] [address] [place] [address]- 0082 Mar, [facility] [address] [place] [address]- 3491 Feb, [facility] [address] [address]- 2695 Feb, [facility] [address], [place] [address]- 9385 Feb, Unspecified backache 724.5 ; Weight gain 783.1 ; Hypothyroid 244.9 ; Edema 782.3 and Diaphoresis 780.8 [facility] [address] [place] [address]- 0591 18 Feb, 2015 [facility] [place] [facility] [address] [id number] [place] [address]- 4695 10 Feb, 2015 [facility] [place] [facility] [address] [id number] [place] [address]- 7684 09 Feb, 2015 [facility] [place] [facility] [address] [id number] [place] [address]- 9263 04 Feb, 2015 [facility] [place] [facility] [address] [id number] [place] [address]- 7671 Feb, [facility] [place] [facility] [address] [id number] [place] [address]- 3776 January, [facility] [place] [facility] [address] [id number] [place] [address]- 3284 January, [facility] [place] [facility] [address] [id number] [place] [address] 14 Dec, 2014 [facility] [place] [facility] [address] [id number] [place] [address] 13 Dec, 2014 [facility] [place] [facility] [address] [id number] [place] [address] 16 Nov, 2014 [facility] [place] [facility] [address] [id number] [place] [address] 16 Nov, 2014 [facility] [place] [facility] [address] [id number] [place] [address] 16 Nov, 2014 [facility] [place] [facility] [address] [id number] [place] [address] 16 Nov, 2014 [facility] [place] [facility] [address] [id number] [place] [address] 16 Nov, 2014 [facility] [place] [facility] [address] [id number] [place] [address] 16 Nov, 2014 [facility] [place] [facility] [address] [id number] [id number] [address] Nov, [facility] [place] [facility] [address] [id number] [place] [address] Nov, [facility] [place] [facility] [address] [id number] [place] [address] Nov, [facility] [place] [facility] [address] [id number] [place] [address] Nov, [facility] [place] [facility] [address] [id number] [place] [address] Nov, [facility] [place] [facility] [address] [id number] [place] [address] Nov, [facility] [place] [facility] [address] [id number] [place] [address] Nov, [facility] [place] [facility] [address] [id number] [place] [address] Oct, [facility] [place] [facility] [address] [id number] [place] [address] Oct, [facility] [place] [facility] [address] [id number] [place] [address] Sep, [facility] [place] [facility] [address] [id number] [place] [address] 1792 Sep, [facility] [place] [facility] [address] [id number] [place] [address]- 2266 Aug, [facility] [place] [facility] [address] [id number] [place] [address] 8460 Aug, [facility] [place] [facility] [address] [id number] [place] [address]- 8928 Aug, [facility] [place] [facility] [address] [id number] [place] [address]- 0048 Aug, [facility] [place] [facility] [address] [id number] [place] [address]- 4[address] Aug, [facility] [place] [facility] [address] [id number] [place] [address]- 8786 17 Aug, 2014 [facility] [place] [facility] [address] [id number] [place] [address]- 8874 11 Aug, 2014 [facility] [place] [facility] [address] [id number] [place] [address]- 3579 Aug, [facility] [place] [facility] [address] [id number] [place] [address]- 4003 Aug, [facility] [place] [facility] [address] [id number] [place] [address]- 7691 Jul, [facility] [place] [facility] [address] [id number] [place] [address]- 1732 Jul, [facility] [place] [facility] [address] [id number] [place] [address]- 0143 Jul, [facility] [place] [facility] [address] [id number] [place] [address]- 5433 Jul, [facility] [place] [facility] [address] [id number] [place] [address]- 0042 Jul, [facility] [place] [facility] [address] [id number] [place] [address]- 7798 Jul, [facility] [place] [facility] [address] [facility] [id number] [place] [address]- 1238 Jul, [facility] [place] [facility] [address] [id number] [place] [address]- 0639 Jul, [facility] [place] [facility] [address] [id number], [place] [address] Jul, [facility] [place] [facility] [address] [id number] [place] [address]- 4135 Jul, [facility] [place] [facility] [address] [id number] [place] [address]- 7659 Jun, [facility] [place] [facility] [address] [id number] [place] [address]- 7901 Jun, [facility] [place] [facility] [address] [id number] [place] [address]- 8088 Jun, [facility] [place] [facility] [address] [id number] [place] [address]- 2618 Jun, [facility] [place] [facility] [address] [id number] [place] [address]- 2683 Jun, [facility] [place] [facility] [address] [id number] [place] [address]- 0039 Jun, [facility] [place] [facility] [address] [id number] [place] [address]- 1405 30 May, 2013 [facility] [place] [facility] [address] [id number] [place] [address]- 4237 30 May, 2013 [facility] [place] [facility] [address] [id number] [place] [address]- 6379 29 May, 2013 [facility] [place] [facility] [address] [id number] [place] [address]- 5333 29 May, 2013 [facility] [place] [facility] [address] [id number] [place] [address]- 2177 24 May, 2013 [facility] [place] [facility] [address] [id number] [place] [address]- 6162 24 May, 2013 [facility] [place] [facility] [address] [id number] [place] [address]- 8759 May, 2013 [facility] [place] [facility] [address] [id number] [place] [address]- 2548 22 May, 2013 [facility] [place] [facility] [address] [id number] [place] [address] 2544 05 Sep, 2013 [facility] [place] [facility] [address] [id number] [place] [address]- 2541 05 May, 2013 [facility] [place] [facility] [address] [id number] [place] [address]- 2540 02 May, 2013 [facility] [place] [facility] [address] [id number] [place] [address]- 2945 May, [facility] [place] [facility] [address] [id number] [place] [address]- 7954 Apr, [facility] [place] [facility] [address] [id number] [place] [address]- 7811 Apr, [facility] [place] [facility] [address] [id number] [place] [address]- 3206 Apr, [facility] [place] [facility] [address] [id number] [place] [address]- 8179 Apr, [facility] [place] [facility] [address] [id number] [place] [address]- 8101 Apr, [facility] [place] [facility] [address] [id number] [place] [address]- 2282 Apr, [facility] [place] [facility] [address] [id number] [place] [address]- 0221 Apr, [facility] [place] [facility] [address] [id number] [place] [address]- 5278 Apr, [facility] [place] [facility] [address] [id number] [place] [address]- 4666 Apr, [facility] [place] [facility] [address] [id number] [place] [address]- 5520 Apr, [facility] [place] [facility] [address] [id number] [place] [address]- 0990 Apr, [facility] [place] [facility] [address] [id number] [place] [address]- 9765 Apr, [facility] [place] [facility] [address] [id number] [place] [address]- 2268 Apr, [facility] [place] [facility] [address] [id number] [place] [address]- 3641 Apr, [facility] [place] [facility] [address] [id number] [place] [address]- 0702 Apr, [facility] [place] [facility] [address] [id number] [place] [address]- 7938 Apr, [facility] [place] [facility] [address] [id number] [place] [address]- 0478 Apr, [facility] [place] [facility] [address] [id number] [place] [address]- 3899 Apr, [facility] [place] [facility] [address] [id number] [place] [address]- 0503 Apr, [facility] [place] [facility] [address] [id number] [place] [address]- 2277 Apr, [facility] [place] [facility] [address] [id number] [place] [address]- 0574 Apr, [facility] [place] [facility] [address] [id number] [place] [address]- 4082 Apr, [facility] [place] [facility] [address] [id number] [place] [address]- 6664 Apr, [facility] [place] [facility] [address] [id number] [place] [address]- 6931 Mar, [facility] [place] [facility] [address] [id number] [place] [address]- 9272 Mar, [facility] [place] [facility] [address] [id number] [place] [address]- 7334 Mar, [facility] [place] [facility] [address] [id number] [place] [address]- 0654 Mar, [facility] [place] [facility] [address] [id number] [place] [address]- 3588 Mar, [facility] [place] [facility] [address] [id number] [place] [address]- 8379 Mar, [facility] [place] [facility] [address] [id number] [place] [address]- 4774 Mar, [facility] [place] [facility] [address] [id number] [place] [address]- 6478 Mar, [facility] [place] [facility] [address] [id number] [place] [address]- 2189 Mar, [facility] [place] [facility]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
--- OUTSIDE RECORDS SUMMARY | 2018-06-07 11:34 | XMS REPORT ---
Author Author LAITHJARET [facility] Address [address] [place] [address] Care Team Providers Care Wardrobe Manager Name Role Phone JARET OZUNA Unavailable PROBLEMS Type Condition ICD9-CM Code KRM20-MB Code Onset Dates Condition Status SNOMED Code Problem Chest pain, unspecified type R07.9 Active 63378289 Problem Depression, unspecified depression type F32.9 Active 87926532 Problem Anxiety F41.9 Active 66198457 Problem BMI 30.0-30.9,adult Z68.30 Active 757057923 Problem Moderate episode of recurrent major depressive disorder F33.1 Active 747790895 Problem Thyroid cancer C73 Active 190400352 Problem Postoperative hypothyroidism E89.0 Active 90362137 Problem BMI 31.0-31.9,adult Z68.31 Active 997985669 Problem Other atopic dermatitis L20.89 Active 06409349 Problem Low back pain, unspecified back pain laterality, with sciatica presence unspecified M54.5 Active 045507583 Problem Neuropathy G62.9 Active 127293802 Problem Other chronic pain G89.29 Active 21597443 Problem Dysthymia F34.1 Active 15787240 Problem 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 Active 31372925 Problem Insomnia G47.00 Active 032880824 Problem Gastro-esophageal reflux disease without esophagitis K21.9 Active 844004372 Problem Rheumatoid arthritis, involving unspecified site, unspecified rheumatoid factor presence M06.9 Active 44409952 ALLERGIES No Information ENCOUNTERS Encounter Location Date Diagnosis [facility] [address] [place] [address] Apr, Postoperative hypothyroidism E89.0 [facility] [id number], [place] [address] Apr, Low back pain, unspecified back pain laterality, with sciatica presence unspecified M54.5 [facility] [address] [place] [address] 52555- 5216 17 Mar, 2018 Breast cancer screening Z12.39 and Discharge from nipple N64.52 [facility] [id number] [place] [address] 29020- 8901 Mar, Low back pain, unspecified back pain laterality, with sciatica presence unspecified M54.5 [facility] [id number] [place] [address] 17456- 3948 Mar, Low back pain, unspecified back pain laterality, with sciatica presence unspecified M54.5 ; Rheumatoid arthritis, involving unspecified site, unspecified rheumatoid factor presence M06.9 ; Breast cancer screening Z12.39 and Moderate episode of recurrent major depressive disorder F33.1 [facility] [id number] [place] [address] 21825- 6290 Feb, Low back pain, unspecified back pain laterality, with sciatica presence unspecified M54.5 [facility] [id number] [place] [address] 51330- 3544 January, BMI 30.0-30.9,adult Z68.30 [facility] [id number] [place] [address] 82030- 7894 January, Low back pain, unspecified back pain laterality, with sciatica presence unspecified M54.5 [facility] [id number] [place] [address] 39842- 0115 January, [facility] [id number] [place] [address] 31729- 0409 Dec, Low back pain, unspecified back pain laterality, with sciatica presence unspecified M54.5 [facility] [id number] [place] [address] 93795- 1441 Nov, Low back pain, unspecified back pain laterality, with sciatica presence unspecified M54.5 [facility] [id number] [place] [address] 63040- 9839 Nov, [facility] [id number] [place] [address] 08754- 2990 Nov, Low back pain, unspecified back pain laterality, with sciatica presence unspecified M54.5 ; Other chronic pain G89.29 ; Rheumatoid arthritis, involving unspecified site, unspecified rheumatoid factor presence M06.9 and Dysthymia F34.1 [facility] [address] 57663- 7739 Oct, Low back pain, unspecified back pain laterality, with sciatica presence unspecified M54.5 [facility] [address] 92883- 1356 Sep, Low back pain, unspecified back pain laterality, with sciatica presence unspecified M54.5 [facility] [address] 11936 -8167 Sep, Fever R50.9 and URI, acute J06.9 [facility] [address] 66358- 3865 Aug, [facility] [address] 07969- 8806 Aug, Low back pain, unspecified back pain laterality, with sciatica presence unspecified M54.5 [facility] [id number] [place] [address] 14426- 2114 Jul, Low back pain, unspecified back pain laterality, with sciatica presence unspecified M54.5 [facility] [id number] [place] [address] 97247 -0490 15 Jul, 2017 Nausea R11.0 ; Fever and chills R50.9 ; UTI symptoms R39.9 and Hematuria, unspecified type R31.9 [facility] [id number] [place] [address] 07338- 6085 02 Jul, 2017 [facility] [address] 39891- 0312 Jun, Low back pain, unspecified back pain laterality, with sciatica presence unspecified M54.5 [facility] [id number] [place] [address] 80377- 3853 Jun, BMI 31.0-31.9,adult Z68.31 [facility] [id number] [place] [address] 73938- 5439 Jun, Neuropathy G62.9 [facility] [address] 316131- 9823 Jun, Low back pain, unspecified back pain laterality, with sciatica presence unspecified M54.5 [facility] [address] 36879- 4996 Jun, Encounter for immunization Z23 [facility] [place] [id number] [place] [address] 79904- 2822 Jun, BMI 31.0-31.9,adult Z68.31 [facility] [id number] [place] [address] 01094- 3192 Jun, Low back pain, unspecified back pain laterality, with sciatica presence unspecified M54.5 [facility] [id number] [place] [address] 44846- 1767 May, Low back pain, unspecified back pain laterality, with sciatica presence unspecified M54.5 ; Other chronic pain G89.29 ; Plantar fasciitis M72.2 ; Rheumatoid arthritis, involving unspecified site, unspecified rheumatoid factor presence M06.9 and History of alcohol abuse Z87.898 [facility] [id number] [place] [address] 67600- 4737 May, Anxiety F41.9 and Low back pain, unspecified back pain laterality, with sciatica presence unspecified M54.5 [facility] [id number] [place] [address] 42260- 2244 Apr, Anxiety F41.9 and Low back pain, unspecified back pain laterality, with sciatica presence unspecified M54.5 [facility] [address] 83800- 2096 18 Mar, 2017 Acute right-sided low back pain without sciatica M54.5 ; Rash R21 ; Right flank pain R10.9 ; Lipid screening Z13.220 ; Other chronic pain G89.29 ; 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 ; Postoperative hypothyroidism E89.0 and Breast cancer screening Z12.39 [facility] [address] 61887- 4815 14 Mar, 2017 Anxiety F41.9 and Low back pain, unspecified back pain laterality, with sciatica presence unspecified M54.5 [facility] [address] 71735- 9944 13 Mar, 2017 Acute right-sided low back pain without sciatica M54.5 [facility] [address] 74726- 2120 07 Mar, 2017 Anxiety F41.9 [facility] [address] 66739- 5838 28 Feb, 2017 Right flank pain R10.9 and Anxiety F41.9 [facility] [address] 09832- 6149 16 Feb, 2017 BMI 31.0-31.9,adult Z68.31 [facility] [place] [address] 41894- 8678 Feb, Low back pain, unspecified back pain laterality, with sciatica presence unspecified M54.5 and Anxiety F41.9 [facility] [id number] [place] [address] 64130 -7902 January, Abscess of toe of right foot L02.611 and Other atopic dermatitis L20.89 [facility] [id number] [place] [address] 95626- 6236 January, Low back pain, unspecified back pain laterality, with sciatica presence unspecified M54.5 and Anxiety F41.9 [facility] [address] 57309- 2892 Dec, Anxiety F41.9 and Low back pain, unspecified back pain laterality, with sciatica presence unspecified M54.5 [facility] [address] 46930 -0354 Dec, Scabies B86 [facility] [place] [id number] 1475 Nov, Rash R21 ; Other chronic pain G89.29 ; 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 ; Postoperative hypothyroidism E89.0 ; Breast cancer screening Z12.39 and Lipid screening Z13.220 [facility] [place] [address] 2413 Nov, Anxiety F41.9 and Low back pain, unspecified back pain laterality, with sciatica presence unspecified M54.5 [facility] [address] 44085- 6764 Oct, Anxiety F41.9 and Low back pain, unspecified back pain laterality, with sciatica presence unspecified M54.5 [facility] [address] [id number]- 6080 Sep, Anxiety F41.9 and Low back pain, unspecified back pain laterality, with sciatica presence unspecified M54.5 [facility] [address] 52266- 8530 Sep, Anxiety F41.9 [facility] [place] [address] 73488- 2945 Sep, Gastro-esophageal reflux disease without esophagitis K21.9 [facility] [address] [id number] Sep, Dental examination Z01.20 [place] [address] 02501- 1455 Sep, Low back pain, unspecified back pain laterality, with sciatica presence unspecified M54.5 and Postoperative hypothyroidism E89.0 [facility] [id number] [place] [address] 53699- 8810 Aug, Anxiety F41.9 [facility] [id number] [place] [address] 39372- 5082 Aug, [facility] [address] 78813- 8628 Aug, Low back pain, unspecified back pain laterality, with sciatica presence unspecified M54.5 ; Other chronic pain G89.29 ; Thyroid cancer C73 and Postoperative hypothyroidism E89.0 [facility] [place] [address] 85529- 5483 Jul, [place] [address] 67999- 5692 Jul, Anxiety F41.9 [facility] [address] 48678- 1121 Jul, [facility] [address] 20262- 0020 Jul, BMI 29.0-29.9,adult Z68.29 [facility] [place] [id number] [place] [address] 79202- 3955 17 Jul, 2016 [facility] [address] 56018- 8216 Jul, BMI 30.0-30.9,adult Z68.30 [facility] [id number] [place] [address] 36345- 5753 Jul, Low back pain, unspecified back pain laterality, with sciatica presence unspecified M54.5 and Anxiety F41.9 [facility] [id number] [place] [address] 53100- 6063 Jun, 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 [facility] [address] 66811- 6257 17 Jun, 2016 BMI 30.0-30.9,adult Z68.30 [facility] [id number] [place] [address] 66591- 3538 14 Jun, 2016 [facility] [address] 38373- 3687 10 Jun, 2016 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 ; Dysthymia F34.1 ; Encounter for immunization Z23 and Other chronic pain G89.29 [facility] [id number] [place] [address] 74446- 3770 Jun, Low back pain, unspecified back pain laterality, with sciatica presence unspecified M54.5 [facility] [address] 40306- 5631 Jun, BMI 30.0-30.9,adult Z68.30 [facility] [place] [address] 76487- 2899 Jun, Anxiety F41.9 [facility] [address] 81220- 7849 May, 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 [facility] [id number] [place] [address] 44086- 9814 May, Constipation, unspecified constipation type K59.00 [facility] [id number] [place] [address] 87203- 2153 May, Low back pain, unspecified back pain laterality, with sciatica presence unspecified M54.5 [facility] [id number] [place] [address] 16830- 8453 May, [facility] [address] 06307- 7829 May, Constipation, unspecified constipation type K59.00 [facility] [id number] [place] [address] 04991- 3038 May, Anxiety F41.9 [facility] [id number] [place] [address] 74495- 6006 Apr, BMI 31.0-31.9,adult Z68.31 [place] [address] 60306- 5194 Apr, Thyroid goiter E04.9 [place] [address] 51407- 1443 Apr, [place] [address] 70580- 3999 Apr, Low back pain, unspecified back pain laterality, with sciatica presence unspecified M54.5 [place] [address] 56408- 9334 Apr, [facility] [id number] [place] [address] 82390- 9145 Apr, Constipation, unspecified constipation type K59.00 ; Thyroid nodule E04.1 ; Family history of colon cancer Z80.0 and 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 [facility] [id number] [place] [address] 93559- 6002 Apr, Anxiety F41.9 [facility] [id number] [place] [address] 37021- 1115 Mar, [facility] [id number] [place] [address] 46286- 7507 Mar, Low back pain, unspecified back pain laterality, with sciatica presence unspecified M54.5 [facility] [id number] [place] [address] 82664- 0235 Mar, BMI 32.0-32.9,adult Z68.32 [facility] [id number] [place] [address] 56399- 1654 Feb, Anxiety F41.9 [facility] [id number] [place] [address] 31659- 7874 Feb, Depression, unspecified depression type F32.9 [facility] [id number] [place] [address] 59687- 4527 30 Feb, 2016 BMI 32.0-32.9,adult Z68.32 [facility] [id number] [place] [address] 067544- 9218 16 Feb, 2016 Low back pain, unspecified back pain laterality, with sciatica presence unspecified M54.5 [facility] [id number] [place] [address] 41390- 5562 14 Feb, 2016 [facility] [id number] [place] [address] 00479- 0844 Feb, BMI 32.0-32.9,adult Z68.32 [facility] [id number] [place] [address] 28051- 8262 Feb, Anxiety F41.9 [facility] [id number] [place] [address] 14985- 2132 January, BMI 32.0-32.9,adult Z68.32 [facility] [id number] [place] [address] 50657- 9105 January, Low back pain, unspecified back pain laterality, with sciatica presence unspecified M54.5 ; Other chronic pain G89.29 ; Weight gain R63.5 and Rheumatoid arthritis, involving unspecified site, unspecified rheumatoid factor presence M06.9 [facility] [place] [id number] [place] [address] 51691- 9005 January, Low back pain, unspecified back pain laterality, with sciatica presence unspecified M54.5 [facility] [id number] [place] [address] 32267- 7264 January, BMI 32.0-32.9,adult Z68.32 [facility] [place] [address] [place] [address] 91927- 5060 January, BMI 32.0-32.9,adult Z68.32 [facility] [id number] [place] [address] 42683- 3355 January, BMI 32.0-32.9,adult Z68.32 [facility] [address] 76086- 2042 Dec, Insomnia G47.00 and Dysthymia F34.1 [facility] [address] 74446- 5195 Dec, [facility] [address] 07565- 6692 Dec, Other chronic pain G89.29 ; Neuropathy G62.9 and Dysthymia F34.1 [facility] [address] 18155- 4890 Dec, [facility] [id number] [place] [address] 25395- 6040 Nov, [facility] [address] 47017- 0762 Nov, [facility] [id number] [place] [address] 62437- 9120 Nov, [facility] [id number] [place] [address] 41844- 2838 Oct, [facility] [id number] [place] [address] 19182- 1497 Oct, [facility] [id number] [place] [address] 97039- 3793 Oct, Family history of diabetes mellitus Z83.3 [facility] [id number] [place] [address] 08730- 2865 Oct, [facility] [id number] [place] [address] 92583- 6583 Sep, [facility] [id number] [place] [address] 33252- 9523 Sep, Eye pain, right H57.11 and Other chronic pain G89.29 [facility] [id number] [place] [address] 68090- 2622 Sep, [place] [place] [address] 01693- 5212 Sep, [place] [address] 69121- 5548 Sep, 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 ; Neuropathy G62.9 ; Low back pain, unspecified back pain laterality, with sciatica presence unspecified M54.5 ; Gastro-esophageal reflux disease without esophagitis K21.9 and Encounter for long-term (current) use of other medications V58.69 [place] [address] 70376- 3031 Sep, [place] [facility] [address] 38482- 5079 Sep, [place] [address] 38081- 1681 Sep, [facility] [id number] [place] [address] 81960- 2111 Sep, [facility] [id number] [place] [address] 56135- 1339 Aug, [facility] [id number] [place] [address] 16329- 1115 Aug, Family history of diabetes mellitus Z83.3 [facility] [id number] [place] [address] 61574- 6031 Aug, [facility] [id number] [place] [address] 00255- 1896 Aug, [facility] [id number] [place] [address] 52335- 3196 Aug, Family history of diabetes mellitus Z83.3 [place] [address] 13185- 7115 Aug, Weight gain R63.5 ; Edema, unspecified R60.9 ; Family history of diabetes mellitus Z83.3 and Gastroesophageal reflux disease with esophagitis K21.0 [facility] [id number] [place] [address] 49484- 2482 14 Aug, 2015 [facility] [id number] [place] [address] 56739- 5809 Aug, [facility] [id number] [place] [address] 66042- 0701 Jul, [facility] [id number] [place] [address] 37906- 3447 Jul, [facility] [id number] [place] [address] 71115- 2810 Jul, [place] [place] [id number] [place] [address] 20231- 7020 Jun, [facility] [id number] [place] [address] 38272- 3051 Jun, Nose pain J34.89 ; Encounter for immunization Z23 ; Screening for breast cancer Z12.39 and Encounter for long-term (current) use of other medications V58.69 [place] [address] [place] [address] 83538- 6503 Jun, [facility] [id number] [place] [address] 34891- 5523 23 May, 2015 [facility] [id number] [place] [address] 88221- 1288 18 May, 2015 [facility] [id number] [place] [address] 55387- 5713 17 May, 2015 [facility] [id number] [place] [address] 05255- 2838 17 May, 2015 [facility] [id number] [place] [address] 51183- 3796 May, [facility] [address] [place] [address]- 5695 May, [facility] [address] [place] [address]- 6850 May, [facility] [address], [place] [address]- 0061 Apr, [facility] [id number] [place] [address] 58786- 2701 Apr, [facility] [address] [place] [address]- 4764 Apr, [facility] [address] [place] [address] 91499- 2550 Mar, [facility] [id number] [address]- 8861 Mar, [facility] [address] [place] [address] 06923- 5401 Mar, Lesion of left shoulder 709.9 [facility] [address], [place] [address]- 9369 Mar, [facility] [address] [place] [address]- 5501 Mar, [facility] [address] [place] [address]- 9570 Mar, [facility] [address] [place] [address]- 8652 Feb, [facility] [address] [place] [address]- 1872 Feb, [facility] [address] [place] [address]- 5151 Feb, Unspecified backache 724.5 ; Weight gain 783.1 ; Hypothyroid 244.9 ; Edema 782.3 and Diaphoresis 780.8 [facility] [id number] [place] [address]- 8835 18 Feb, 2015 [facility] [place] [facility] [address] [id number] [place] [address]- 2902 10 Feb, 2015 [facility] [place] [facility] [address] [id number] [place] [address]- 4194 09 Feb, 2015 [facility] [place] [facility] [address] [id number] [place] [address]- 8865 04 Feb, 2015 [facility] [place] [facility] [address] [id number] [place] [address]- 7531 Feb, [facility] [place] [facility] [address] [id number] [place] [address]- 8966 January, [facility] [place] [facility] [address] [id number] [place] [address]- 9380 January, [facility] [place] [facility] [address] [id number] [place] [address]- 3056 14 Dec, 2014 [facility] [place] [facility] [address] [id number] [place] [address]- 9647 13 Dec, 2014 [facility] [place] [facility] [address] [id number] [place] [address]- 8699 16 Nov, 2014 [facility] [place] [facility] [address] [id number] [place] [address]- 0337 16 Nov, 2014 [facility] [place] [facility] [address] [id number] [place] [address]- 3922 16 Nov, 2014 [facility] [place] [facility] [address] [id number] [place] [address]- 0527 16 Nov, 2014 [facility] [place] [facility] [address] [id number] [place] [address]- 0163 16 Nov, 2014 [facility] [place] [facility] [address] [id number] [place] [address]- 3587 16 Nov, 2014 [facility] [place] [facility] [address] [id number] [place] [address]- 2895 12 Nov, 2014 [facility] [place] [facility] [address] [id number] [place] [address]- 9460 Nov, [facility] [place] [facility] [address] [id number] [place] [address] Nov, [facility] [place] [facility] [address] [id number] [place] [address] Nov, [facility] [place] [facility] [address] [id number] [place] [address] Nov, [facility] [place] [facility] [address] [id number] [place] [address] Nov, [facility] [place] [facility] [address] [id number] [place] [address] Nov, [facility] [place] [facility] [address] [id number] [place] [address] Oct, [facility] [place] [facility] [address] [id number] [place] [address] Oct, [facility] [place] [facility] [address] [id number] [place] [address] Sep, [facility] [place] [facility] [address] [id number] [place] [address] Sep, [facility] [place] [facility] [address] [id number] [place] [address] Aug, [facility] [place] [facility] [address] [id number] [place] [address] Aug, [facility] [place] [facility] [address] [id number] [place] [address] Aug, [facility] [place] [facility] [address] [id number] [place] [address] Aug, [facility] [place] [facility] [address] [id number] [place] [address] Aug, [facility] [place] [facility] [address] [id number], [place] [address] 17 Aug, 2014 [facility] [place] [facility] [address] [id number] [place] [address] Aug, [facility] [place] [facility] [address] [address] [id number] [place] [address] Aug, [facility] [place] [facility] [address] [facility] [id number] [place] [address] 5627 Aug, [facility] [place] [facility] [address] [id number] [place] [address] 4197 Jul, [facility] [place] [facility] [address] [facility] [id number] [place] [address]- 2463 Jul, [facility] [place] [facility] [address] [facility] [id number] [place] [address] 4658 Jul, [facility] [place] [facility] [address] [facility] [id number], [place] [address] Jul, [facility] [place] [facility] [address] [id number] [place] [address] 1931 Jul, [facility] [place] [facility] [address] [facility] [id number] [place] [address]- 6558 Jul, [facility] [place] [facility] [address] [facility] [id number] [place] [address]- 4799 Jul, [facility] [place] [facility] [address] [id number], [place] [address] 288[address] Jul, [facility] [place] [facility] [address] [id number], [place] [address] 1846 Jul, [facility] [place] [facility] [address] [id number], [place] [address] 1583 Jul, [facility] [place] [facility] [address] [facility] [id number], [place] [address]- 5683 Jun, [facility] [place] [facility] [address] [facility] [id number], [place] [address]- 6938 Jun, [facility] [place] [facility] [address] [id number] [place] [address]- 5646 Jun, 2013 [facility] [place] [facility] [address] [id number] [place] [address]- 2941 Jun, 2013 [facility] [place] [facility] [address] [id number] [place] [address]- 8336 Jun, 2013 [facility] [place] [facility] [address] [id number] [place] [address]- 3706 Jun, 2013 [facility] [place] [facility] [address] [id number] [place] [address] 2542 30 May, 2013 [facility] [place] [facility] [address] [id number] [place] [address]- 1957 30 May, 2013 [facility] [place] [facility] [address] [id number] [place] [address]- 2171 29 May, 2013 [facility] [place] [facility] [address] [id number] [place] [address]- 1859 29 May, 2013 [facility] [place] [facility] [address] [id number] [place] [address] 2540 24 May, 2013 [facility] [place] [facility] [address] [id number] [place] [address]- 2540 24 May, 2013 [facility] [place] [facility] [address] [id number] [place] [address] 254 22 May, 2013 [facility] [place] [facility] [address] [id number] [place] [address]- 2543 22 May, 2013 [facility] [place] [facility] [address] [id number] [place] [address] 2541 05 Sep, 2013 [facility] [place] [facility] [address] [id number] [place] [address] 2546 05 Sep, 2013 [facility] [place] [facility] [address] [id number] [place] [address] 2549 02 Sep, 2013 [facility] [place] [facility] [address] [id number] [place] [address]- 7899 May, [facility] [place] [facility] [address] [id number] [place] [address]- 2872 Apr, [facility] [place] [facility] [address] [id number] [place] [address]- 6426 Apr, [facility] [place] [facility] [address] [id number] [place] [address]- 3254 Apr, [facility] [place] [facility] [address] [id number] [place] [address]- 2282 Apr, [facility] [place] [facility] [address] [id number] [place] [address]- 3521 Apr, [facility] [place] [facility] [address] [id number] [place] [address]- 2374 Apr, [facility] [place] [facility] [address] [id number] [place] [address]- 3478 Apr, [facility] [place] [facility] [address] [id number] [place] [address]- 2647 Apr, [facility] [place] [facility] [address] [id number] [place] [address]- 9789 Apr, [facility] [place] [facility] [address] [id number] [place] [address]- 8007 Apr, [facility] [place] [facility] [address] [id number], [place] [address]- 8617 Apr, [facility] [place] [facility] [address] [id number], [place] [address]- 8364 Apr, [facility] [place] [facility] [address] [id number] [place] [address]- 4691 Apr, [facility] [place] [facility] [address] [id number] [place] [address]- 4296 Apr, [facility] [place] [facility] [address] [id number] [place] [address]- 9376 Apr, [facility] [place] [facility] [address] [id number] [place] [address]- 5557 Apr, [facility] [place] [facility] [address] [id number] [place] [address]- 1661 Apr, [facility] [place] [facility] [address] [id number] [place] [address]- 2685 Apr, [facility] [place] [facility] [address] [id number] [place] [address]- 7989 Apr, [facility] [place] [facility] [address] [id number] [place] [address]- 4060 Apr, [facility] [place] [facility] [address] [id number] [place] [address]- 8460 Apr, [facility] [place] [facility] [address] [id number] [place] [address]- 5364 Apr, [facility] [place] [facility] [address] [id number] [place] [address]- 4764 Apr, [facility] [place] [facility] [address] [id number] [place] [address]- 8358 Mar, [facility] [place] [facility] [address] [id number] [place] [address]- 4725 Mar, [facility] [place] [facility] [address] [id number] [place] [address]- 9755 Mar, [facility] [place] [facility] [address] [id number] [place] [address]- 8067 Mar, [facility] [place] [facility] [address] [id number] [place] [address]- 2741 Mar, [facility] [place]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
--- OUTSIDE RECORDS SUMMARY | 2018-06-07 11:35 | XMS REPORT ---
Author Author ELISEO BENDER [facility] Address [address] [place] [address] Care Team Providers Care Director [employer] Name Role Phone ELISEO BENDER Unavailable PROBLEMS Type Condition ICD9-CM Code USK30-TO Code Onset Dates Condition Status SNOMED Code Problem Chest pain, unspecified type R07.9 Active 18052176 Problem Depression, unspecified depression type F32.9 Active 58224567 Problem Anxiety F41.9 Active 27860317 Problem BMI 30.0-30.9,adult Z68.30 Active 224716538 Problem Moderate episode of recurrent major depressive disorder F33.1 Active 867981341 Problem Thyroid cancer C73 Active 872713497 Problem Postoperative hypothyroidism E89.0 Active 85820899 Problem BMI 31.0-31.9,adult Z68.31 Active 417708704 Problem Other atopic dermatitis L20.89 Active 72571004 Problem Low back pain, unspecified back pain laterality, with sciatica presence unspecified M54.5 Active 164750942 Problem Neuropathy G62.9 Active 520083854 Problem Other chronic pain G89.29 Active 21327781 Problem Dysthymia F34.1 Active 03911944 Problem 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 Active 57998648 Problem Insomnia G47.00 Active 060534397 Problem Gastro-esophageal reflux disease without esophagitis K21.9 Active 422273733 Problem Rheumatoid arthritis, involving unspecified site, unspecified rheumatoid factor presence M06.9 Active 51673466 ALLERGIES No Information ENCOUNTERS Encounter Location Date Diagnosis [facility], [place] [address] [facility] [id number] [address] Apr, Postoperative hypothyroidism E89.0 [facility], [place] [address] [id number] [address] Apr, Low back pain, unspecified back pain laterality, with sciatica presence unspecified M54.5 [place] [id number] [place] [address] 10451- 3909 17 Mar, 2018 Breast cancer screening Z12.39 and Discharge from nipple N64.52 [place] [id number] [place] [address] 15883- 0895 Mar, Low back pain, unspecified back pain laterality, with sciatica presence unspecified M54.5 [place] [id number] [place] [address] 41529- 8083 Mar, Low back pain, unspecified back pain laterality, with sciatica presence unspecified M54.5 ; Rheumatoid arthritis, involving unspecified site, unspecified rheumatoid factor presence M06.9 ; Breast cancer screening Z12.39 and Moderate episode of recurrent major depressive disorder F33.1 [place] [id number] [place] [address] 97627- 3778 Feb, Low back pain, unspecified back pain laterality, with sciatica presence unspecified M54.5 [place] [id number] [place] [address] 77715- 9464 January, BMI 30.0-30.9,adult Z68.30 [place] [id number] [place] [address] 78157- 0018 January, Low back pain, unspecified back pain laterality, with sciatica presence unspecified M54.5 [place] [id number] [place] [address] 65957- 8942 January, [place] [id number] [place] [address] 69826- 9342 Dec, Low back pain, unspecified back pain laterality, with sciatica presence unspecified M54.5 [place] [id number] [place] [address] 86754- 7364 Nov, Low back pain, unspecified back pain laterality, with sciatica presence unspecified M54.5 [place] [id number] [place] [address] 98761- 9535 Nov, [place] [id number] [place] [address] 15659- 1457 Nov, Low back pain, unspecified back pain laterality, with sciatica presence unspecified M54.5 ; Other chronic pain G89.29 ; Rheumatoid arthritis, involving unspecified site, unspecified rheumatoid factor presence M06.9 and Dysthymia F34.1 [place] [address] 90371- 8517 Oct, Low back pain, unspecified back pain laterality, with sciatica presence unspecified M54.5 [place] [address] 54511- 2638 Sep, Low back pain, unspecified back pain laterality, with sciatica presence unspecified M54.5 [facility] [address] 9[address]80 -6457 Sep, Fever R50.9 and URI, acute J06.9 [place] [address] 39632- 1951 Aug, [place] [address] 87542- 2975 Aug, Low back pain, unspecified back pain laterality, with sciatica presence unspecified M54.5 [place] [id number] [place] [address] 54354- 2465 Jul, Low back pain, unspecified back pain laterality, with sciatica presence unspecified M54.5 [facility] [id number] [place] [address] 61892 -7753 15 Jul, 2017 Nausea R11.0 ; Fever and chills R50.9 ; UTI symptoms R39.9 and Hematuria, unspecified type R31.9 [place] [id number] [place] [address] 60845- 3374 02 Jul, 2017 [place] [address] 82035- 0148 Jun, Low back pain, unspecified back pain laterality, with sciatica presence unspecified M54.5 [place] [id number] [place] [address] 75731- 9274 Jun, BMI 31.0-31.9,adult Z68.31 [place] [id number] [place] [address] 18866- 6178 Jun, Neuropathy G62.9 [place] [address] 348955- 8698 Jun, Low back pain, unspecified back pain laterality, with sciatica presence unspecified M54.5 [place] [address] 66057- 5278 Jun, Encounter for immunization Z23 [place] [id number] [place] [address] 19403- 3048 Jun, BMI 31.0-31.9,adult Z68.31 [place] [id number] [place] [address] 00765- 1815 Jun, Low back pain, unspecified back pain laterality, with sciatica presence unspecified M54.5 [place] [id number] [place] [address] 62508- 5577 May, Low back pain, unspecified back pain laterality, with sciatica presence unspecified M54.5 ; Other chronic pain G89.29 ; Plantar fasciitis M72.2 ; Rheumatoid arthritis, involving unspecified site, unspecified rheumatoid factor presence M06.9 and History of alcohol abuse Z87.898 [place] [id number] [place] [address] 16990- 7551 May, Anxiety F41.9 and Low back pain, unspecified back pain laterality, with sciatica presence unspecified M54.5 [place] [id number] [place] [address] 95089- 0652 Apr, Anxiety F41.9 and Low back pain, unspecified back pain laterality, with sciatica presence unspecified M54.5 [place] [id number] [place] [address] 86967- 0993 18 Mar, 2017 Acute right-sided low back pain without sciatica M54.5 ; Rash R21 ; Right flank pain R10.9 ; Lipid screening Z13.220 ; Other chronic pain G89.29 ; 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 ; Postoperative hypothyroidism E89.0 and Breast cancer screening Z12.39 [place] [address] 40903- 8151 14 Mar, 2017 Anxiety F41.9 and Low back pain, unspecified back pain laterality, with sciatica presence unspecified M54.5 [place] [address] 35333- 6124 13 Mar, 2017 Acute right-sided low back pain without sciatica M54.5 [place] [address] 36347- 7311 07 Mar, 2017 Anxiety F41.9 [place] [address] 42187- 8440 28 Feb, 2017 Right flank pain R10.9 and Anxiety F41.9 [place] [address] 09092- 0559 16 Feb, 2017 BMI 31.0-31.9,adult Z68.31 [place] [address] 90585- 6027 Feb, Low back pain, unspecified back pain laterality, with sciatica presence unspecified M54.5 and Anxiety F41.9 [facility] [id number] [place] [address] 05890 -2827 January, Abscess of toe of right foot L02.611 and Other atopic dermatitis L20.89 [place] [address] 77206- 5204 January, Low back pain, unspecified back pain laterality, with sciatica presence unspecified M54.5 and Anxiety F41.9 [facility], [place] [address] 65609- 7549 Dec, Anxiety F41.9 and Low back pain, unspecified back pain laterality, with sciatica presence unspecified M54.5 [facility] [address] 42493 -2823 Dec, Scabies B86 [place] [address] 7981 Nov, Rash R21 ; Other chronic pain G89.29 ; 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 ; Postoperative hypothyroidism E89.0 ; Breast cancer screening Z12.39 and Lipid screening Z13.220 [place] [address] [address]692 0204 Nov, Anxiety F41.9 and Low back pain, unspecified back pain laterality, with sciatica presence unspecified M54.5 [place] [address] 68920- 4753 Oct, Anxiety F41.9 and Low back pain, unspecified back pain laterality, with sciatica presence unspecified M54.5 [place] [address] 324511- 8129 Sep, Anxiety F41.9 and Low back pain, unspecified back pain laterality, with sciatica presence unspecified M54.5 [facility] [place] [address] 20019- 8075 Sep, Anxiety F41.9 [place] [address] 17595- 6755 Sep, Gastro-esophageal reflux disease without esophagitis K21.9 [facility] [address] [id number] Sep, Dental examination Z01.20 [place] [address] 39503- 9030 Sep, Low back pain, unspecified back pain laterality, with sciatica presence unspecified M54.5 and Postoperative hypothyroidism E89.0 [facility], [place] [id number] [place] [address] 60330- 0121 Aug, Anxiety F41.9 [facility], [place] [address] 63584- 7829 Aug, [facility] [place] [address] 93629- 2954 Aug, Low back pain, unspecified back pain laterality, with sciatica presence unspecified M54.5 ; Other chronic pain G89.29 ; Thyroid cancer C73 and Postoperative hypothyroidism E89.0 [place] [address] 74897- 3259 Jul, [place] [address] 02384- 7120 Jul, Anxiety F41.9 [facility], [place] [address] 35517- 0319 Jul, [facility] [place] [address] 87624- 7238 Jul, BMI 29.0-29.9,adult Z68.29 [place] [address] 13815- 4490 17 Jul, 2016 [facility] [place] [address] 43421- 7287 Jul, BMI 30.0-30.9,adult Z68.30 [facility], [place] [address] 00997- 1268 Jul, Low back pain, unspecified back pain laterality, with sciatica presence unspecified M54.5 and Anxiety F41.9 [facility], [place] [id number] [place] [address] 96776- 9580 Jun, 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 [facility], [place] [address] 12365- 6485 17 Jun, 2016 BMI 30.0-30.9,adult Z68.30 [facility] [place] [id number] [place] [address] 50222- 7547 14 Jun, 2016 [facility] [place] [id number] [place] [address] 83748- 3232 10 Jun, 2016 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 ; Dysthymia F34.1 ; Encounter for immunization Z23 and Other chronic pain G89.29 [place] [id number] [place] [address] 95278- 3955 06 Jun, 2016 Low back pain, unspecified back pain laterality, with sciatica presence unspecified M54.5 [place] [id number] [place] [address] 50297- 5876 Jun, BMI 30.0-30.9,adult Z68.30 [place] [address] 58549- 2532 Jun, Anxiety F41.9 [facility] [place] [address] 15624- 4027 May, 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 [place] [id number] [place] [address] 76300- 6960 May, Constipation, unspecified constipation type K59.00 [place] [id number] [place] [address] 22448- 2003 May, Low back pain, unspecified back pain laterality, with sciatica presence unspecified M54.5 [facility] [place] [id number] [place] [address] 17041- 9387 May, [facility] [place] [address] 04119- 4276 May, Constipation, unspecified constipation type K59.00 [facility] [place] [id number] [place] [address] 94112- 8038 May, Anxiety F41.9 [facility], [place] [id number] [place] [address] 47836- 7572 Apr, BMI 31.0-31.9,adult Z68.31 [place] [address] 86155- 1878 Apr, Thyroid goiter E04.9 [place] [address] 76618- 7565 Apr, [place] [address] 12931- 4800 Apr, Low back pain, unspecified back pain laterality, with sciatica presence unspecified M54.5 [place] [address] 95485- 7852 Apr, [place] [address] 70447- 8413 Apr, Constipation, unspecified constipation type K59.00 ; Thyroid nodule E04.1 ; Family history of colon cancer Z80.0 and 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 [place] [id number] [place] [address] 50281- 9717 Apr, Anxiety F41.9 [place] [id number] [place] [address] 46967- 4023 Mar, [place] [id number] [place] [address] 98966- 6552 Mar, Low back pain, unspecified back pain laterality, with sciatica presence unspecified M54.5 [place] [id number] [place] [address] 56496- 8473 Mar, BMI 32.0-32.9,adult Z68.32 [place] [address] 82137- 9809 Feb, Anxiety F41.9 [place] [address] 07324- 2134 Feb, Depression, unspecified depression type F32.9 [place] [id number] [place] [address] 49805- 3701 30 Feb, 2016 BMI 32.0-32.9,adult Z68.32 [place] [id number] [place] [address] 28590- 1514 16 Feb, 2016 Low back pain, unspecified back pain laterality, with sciatica presence unspecified M54.5 [place] [id number] [place] [address] 36931- 2020 14 Feb, 2016 [place] [id number] [place] [address] 31018- 4101 Feb, BMI 32.0-32.9,adult Z68.32 [place] [id number] [place] [address] 14117- 4290 Feb, Anxiety F41.9 [place] [id number] [place] [address] 39303- 8117 January, BMI 32.0-32.9,adult Z68.32 [place] [id number] [place] [address] 48799- 3306 January, Low back pain, unspecified back pain laterality, with sciatica presence unspecified M54.5 ; Other chronic pain G89.29 ; Weight gain R63.5 and Rheumatoid arthritis, involving unspecified site, unspecified rheumatoid factor presence M06.9 [place] [id number] [place] [address] 82063- 2348 January, Low back pain, unspecified back pain laterality, with sciatica presence unspecified M54.5 [place] [id number] [place] [address] 36055- 6997 January, BMI 32.0-32.9,adult Z68.32 [place] [id number] [place] [address] 20786- 8008 January, BMI 32.0-32.9,adult Z68.32 [place] [id number] [place] [address] 22091- 9776 January, BMI 32.0-32.9,adult Z68.32 [facility], [place] [id number] [place] [address] 88893- 6617 Dec, Insomnia G47.00 and Dysthymia F34.1 [facility], [place] [id number] [place] [address] 71240- 7255 Dec, [facility], [place] [id number] [place] [address] 25562- 8471 Dec, Other chronic pain G89.29 ; Neuropathy G62.9 and Dysthymia F34.1 [facility], [place] [id number] [place] [address] 81710- 4029 Dec, [facility] [place] [id number] [place] [address] 64071- 1018 Nov, [facility] [place] [id number] [place] [address] 93476- 9247 Nov, [facility], [place] [id number] [place] [address] 53232- 4375 Nov, [facility], [place] [id number] [place] [address] 46667- 1129 Oct, [facility], [place] [id number] [place] [address] 75056- 7567 Oct, [facility], [place] [id number] [place] [address] 10928- 7476 Oct, Family history of diabetes mellitus Z83.3 [facility], [place] [id number] [place] [address] 51383- 7805 Oct, [facility], [place] [id number] [place] [address] 99462- 7636 Sep, [facility], [place] [id number] [place] [address] 64941- 7613 Sep, Eye pain, right H57.11 and Other chronic pain G89.29 [facility], [place] [id number] [place] [address] 56304- 5621 Sep, [facility], [place] [id number] [place] [address] 12647- 8960 Sep, [facility], [place] [id number] [place] [address] 18802- 8127 Sep, 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 ; Neuropathy G62.9 ; Low back pain, unspecified back pain laterality, with sciatica presence unspecified M54.5 ; Gastro-esophageal reflux disease without esophagitis K21.9 and Encounter for long-term (current) use of other medications V58.69 [facility], [place] [id number] [place] [address] 98145- 9785 Sep, [place] [address] 82175- 5549 Sep, [facility], [place] [id number] [place] [address] 06540- 1386 Sep, [facility], [place] [id number] [place] [address] 77797- 8150 Sep, [facility], [place] [id number] [place] [address] 72899- 1791 Aug, [facility], [place] [id number] [place] [address] 17525- 7024 Aug, Family history of diabetes mellitus Z83.3 [facility], [place] [id number] [place] [address] 58826- 4128 Aug, [facility] [place] [address] 63229- 4598 Aug, [facility] [place] [id number] [place] [address] 63984- 6222 Aug, Family history of diabetes mellitus Z83.3 [facility], [place] [id number] [place] [address] 88362- 9851 14 Aug, 2015 Weight gain R63.5 ; Edema, unspecified R60.9 ; Family history of diabetes mellitus Z83.3 and Gastroesophageal reflux disease with esophagitis K21.0 [facility], [place] [id number] [place] [address] 02934- 0539 14 Aug, 2015 [facility], [place] [id number] [place] [address] 85290- 1310 Aug, [facility] [place] [id number] [place] [address] 77730- 6144 Jul, [place] [id number] [place] [address] 63463- 9587 Jul, [place] [id number] [place] [address] 57396- 2349 Jul, [place] [id number] [place] [address] 04777- 4391 Jun, [place] [id number] [place] [address] 32003- 3402 Jun, Nose pain J34.89 ; Encounter for immunization Z23 ; Screening for breast cancer Z12.39 and Encounter for long-term (current) use of other medications V58.69 [place] [id number] [place] [address] 53401- 5478 Jun, [facility] [place] [id number] [place] [address] 14059- 3137 23 May, 2015 [facility] [place] [id number] [place] [address] 43536- 0160 18 May, 2015 [place] [id number] [place] [address] 94945- 9165 17 May, 2015 [facility] [place] [id number] [place] [address] 05671- 9295 17 May, 2015 [facility] [place] [id number] [place] [address] 26342- 1283 May, [facility], [place] [address] [address]- 8219 May, [facility], [place] [address] [address]- 1846 May, [facility] [place] [address] [address]- 3385 Apr, [facility], [place] [id number] [place] [address] 82145- 6590 Apr, [facility] [place] [address] [address]- 1543 Apr, [facility] [place] [id number] [place] [address] 12813- 4342 Mar, [facility] [place] [id number] [place] [address]184- 7499 Mar, [facility], [place] [id number] [place] [address]- 9015 Mar, [place] of left shoulder 709.9 [facility], [place] [id number] [address] Mar, [facility], [place] [id number] [address] Mar, [facility], [place] [id number] [address] Mar, [facility], [place] [id number] [address] Feb, [facility], [place] [id number] [address] Feb, [facility], [place] [id number] [address] Feb, Unspecified backache 724.5 ; Weight gain 783.1 ; Hypothyroid 244.9 ; Edema 782.3 and Diaphoresis 780.8 [facility], [place] [id number] [place] [address] 18 Feb, 2015 [facility] [place] [facility] [address] [id number] [place] [address] 10 Feb, 2015 [facility] [place] [facility] [address] [id number] [place] [address]- [address] 09 Feb, 2015 [facility] [place] [facility] [address] [id number] [place] [address]- [address] 04 Feb, 2015 [facility] [place] [facility] [address] [id number] [place] [address] Feb, [facility] [place] [facility] [address] [id number] [place] [address] January, [facility] [place] [facility] [address] [id number] [place] [address] January, [facility] [place] [facility] [address] [id number] [place] [address]- [address] 14 Dec, 2014 [facility] [place] [facility] [address] [id number] [place] [address]- [address]14 13 Dec, 2014 [facility] [place] [facility] [address] [id number] [place] [address]- [address]14 16 Nov, 2014 [facility] [place] [facility] [address] [id number] [place] [address]- [address] 16 Nov, 2014 [facility] [place] [facility] [address] [id number] [place] [address] 16 Nov, 2014 [facility] [place] [facility] [address] [id number] [place] [address] 2468 16 Nov, 2014 [facility] [place] [facility] [address] [id number] [place] [address]- 8787 16 Nov, 2014 [facility] [place] [facility] [address] [id number] [place] [address] 6652 16 Nov, 2014 [facility] [place] [facility] [address] [id number] [place] [address] Nov, [facility] [place] [facility] [address] [id number] [place] [address] 8807 Nov, [facility] [place] [facility] [address] [id number] [place] [address] 1634 Nov, [facility] [place] [facility] [address] [id number] [place] [address] 0796 Nov, [facility] [place] [facility] [address] [id number] [place] [address]- 8072 Nov, [facility] [place] [facility] [address] [id number] [place] [address]- 5052 Nov, [facility] [place] [facility] [address] [id number] [place] [address]- 2887 Nov, [facility] [place] [facility] [address] [id number] [place] [address] 5259 Oct, [facility] [place] [facility] [address] [id number] [place] [address]- 6853 Oct, [facility] [place] [facility] [address] [id number] [place] [address] 3094 Sep, [facility] [place] [facility] [address] [id number] [place] [address]- 7859 Sep, [facility] [place] [facility] [address] [id number] [place] [address]- 2395 Aug, [facility] [place] [facility] [address] [id number] [place] [address]- 2218 Aug, [facility] [place] [facility] [address] [id number] [place] [address]- 8368 Aug, [facility] [place] [facility] [address] [id number] [place] [address]- 4750 Aug, [facility] [place] [facility] [address] [id number] [place] [address] 1940 Aug, [facility] [place] [facility] [address] [id number] [place] [address]- 5296 17 Aug, 2014 [facility] [place] [facility] [address] [id number] [place] [address]- 3969 11 Aug, 2014 [facility] [place] [facility] [address] [id number] [place] [address]- 7685 Aug, [facility] [place] [facility] [address] [id number] [place] [address]- 3338 Aug, [facility] [place] [facility] [address] [id number] [place] [address]- 7039 Jul, [facility] [place] [facility] [address] [id number] [place] [address]- 4890 Jul, [facility] [place] [facility] [address] [id number] [place] [address]- 3452 Jul, [facility] [place] [facility] [address] [id number] [place] [address]- 1299 Jul, [facility] [place] [facility] [address] [id number] [place] [address]- 2477 Jul, [facility] [place] [facility] [address] [id number] [place] [address]- 8223 Jul, [facility] [place] [facility] [address] [facility] [id number] [place] [address]- 2408 Jul, [facility] [place] [facility] [address] [id number] [place] [address]- 9261 Jul, [facility] [place] [facility] [address] [id number] [address] 2011 Jul, [facility] [place] [facility] [address] [id number] [place] [address]- 3795 Jul, [facility] [place] [facility] [address] [id number] [place] [address]- 5240 Jun, [facility] [place] [facility] [address] [id number] [place] [address]- 4801 Jun, [facility] [place] [facility] [address] [id number] [place] [address]- 3875 Jun, [facility] [place] [facility] [address] [id number] [place] [address]- 3528 Jun, [facility] [place] [facility] [address] [id number] [place] [address]- 7577 Jun, [facility] [place] [facility] [address] [id number] [place] [address]- 9755 Jun, [facility] [place] [facility] [address] [id number] [place] [address]- 5960 30 May, 2013 [facility] [place] [facility] [address] [id number] [place] [address]- 7250 30 May, 2013 [facility] [place] [facility] [address] [id number] [place] [address]- 3915 29 May, 2013 [facility] [place] [facility] [address] [id number] [place] [address]- 8470 29 May, 2013 [facility] [place] [facility] [address] [id number] [place] [address]- 2333 24 May, 2013 [facility] [place] [facility] [address] [id number] [place] [address]- 1240 24 May, 2013 [facility] [place] [facility] [address] [id number] [place] [address]- 0645 May, 2013 [facility] [place] [facility] [address] [id number] [place] [address]- 2543 22 May, 2013 [facility] [place] [facility] [address] [id number] [place] [address] 2549 05 Sep, 2013 [facility] [place] [facility] [address] [id number] [place] [address]- 2549 05 May, 2013 [facility] [place] [facility] [address] [id number] [place] [address]- 2545 02 May, 2013 [facility] [place] [facility] [address] [id number] [place] [address]- 7170 May, [facility] [place] [facility] [address] [id number] [place] [address]- 3661 Apr, [facility] [place] [facility] [address] [id number] [place] [address]- 2814 Apr, [facility] [place] [facility] [address] [id number] [place] [address]- 7996 Apr, [facility] [place] [facility] [address] [id number] [place] [address]- 7718 Apr, [facility] [place] [facility] [address] [id number] [place] [address]- 2368 Apr, [facility] [place] [facility] [address] [id number] [place] [address]- 0692 Apr, [facility] [place] [facility] [address] [id number] [place] [address]- 5352 Apr, [facility] [place] [facility] [address] [id number] [place] [address]- 0947 Apr, [facility] [place] [facility] [address] [id number] [place] [address]- 2266 Apr, [facility] [place] [facility] [address] [id number] [place] [address]- 9820 Apr, [facility] [place] [facility] [address] [id number] [place] [address]- 3703 Apr, [facility] [place] [facility] [address] [id number] [place] [address]- 1500 Apr, [facility] [place] [facility] [address] [id number] [place] [address]- 3196 Apr, [facility] [place] [facility] [address] [id number] [place] [address]- 3729 Apr, [facility] [place] [facility] [address] [id number] [place] [address]- 4851 Apr, [facility] [place] [facility] [address] [id number] [place] [address]- 0315 Apr, [facility] [place] [facility] [address] [id number] [place] [address]- 2341 Apr, [facility] [place] [facility] [address] [id number] [place] [address]- 3050 Apr, [facility] [place] [facility] [address] [id number] [place] [address]- 4786 Apr, [facility] [place] [facility] [address] [id number] [place] [address]- 0883 Apr, [facility] [place] [facility] [address] [id number] [place] [address]- 2390 Apr, [facility] [place] [facility] [address] [id number] [place] [address]- 8753 Apr, [facility] [place] [facility] [address] [id number] [place] [address]- 8554 Apr, [facility] [place] [facility] [address] [id number] [place] [address]- 2806 Mar, [facility] [place] [facility] [address] [id number] [place] [address]- 2046 Mar, [facility] [place] [facility] [address] [id number]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
[2018-06-07] MEDS ORDERED: BUP/EPI 0.5% 1:200,000 (SENSORCAINE) 30 ML VIAL ONE (11:36)
--- OUTSIDE RECORDS SUMMARY | 2018-06-07 11:36 | XMS REPORT ---
Author Author ELISEO BENDER [facility] Address [address] [place] [address] Care Team Providers Care Tie Fastener Name Role Phone ELISEO BENDER Unavailable PROBLEMS Type Condition ICD9-CM Code [id number] Code Onset Dates Condition Status SNOMED Code Problem Chest pain, unspecified type R07.9 Active 24595195 Problem Depression, unspecified depression type F32.9 Active 53403258 Problem Anxiety F41.9 Active 44153022 Problem BMI 30.0-30.9,adult Z68.30 Active 213801041 Problem Moderate episode of recurrent major depressive disorder F33.1 Active 152151583 Problem Thyroid cancer C73 Active 090039108 Problem Postoperative hypothyroidism E89.0 Active 76360693 Problem BMI 31.0-31.9,adult Z68.31 Active 400168284 Problem Other atopic dermatitis L20.89 Active 08346300 Problem Low back pain, unspecified back pain laterality, with sciatica presence unspecified M54.5 Active 078594082 Problem Neuropathy G62.9 Active 579942356 Problem Other chronic pain G89.29 Active 20120820 Problem Dysthymia F34.1 Active 58234980 Problem 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 Active 92486357 Problem Insomnia G47.00 Active 237050341 Problem Gastro-esophageal reflux disease without esophagitis K21.9 Active 710336214 Problem Rheumatoid arthritis, involving unspecified site, unspecified rheumatoid factor presence M06.9 Active 50209250 ALLERGIES No Information ENCOUNTERS Encounter Location Date Diagnosis [facility] [place] [id number] [address] Apr, [facility] [place] [id number] [address] Apr, Low back pain, unspecified back pain laterality, with sciatica presence unspecified M54.5 [facility] [place] [id number] [place] [address] 57887- 2127 Mar, Breast cancer screening Z12.39 and Discharge from nipple N64.52 [id number] [place] [address] 38743- 4886 Mar, Low back pain, unspecified back pain laterality, with sciatica presence unspecified M54.5 [address] [place] 55634- 6128 Mar, Low back pain, unspecified back pain laterality, with sciatica presence unspecified M54.5 ; Rheumatoid arthritis, involving unspecified site, unspecified rheumatoid factor presence M06.9 ; Breast cancer screening Z12.39 and Moderate episode of recurrent major depressive disorder F33.1 [address] [place] [id number] [place] [address] 25592- 4119 Feb, Low back pain, unspecified back pain laterality, with sciatica presence unspecified M54.5 [address] [id number] [place] [address] 17719- 3509 January, BMI 30.0-30.9,adult Z68.30 [address] [place] [id number] [place] [address] 59930- 0394 January, Low back pain, unspecified back pain laterality, with sciatica presence unspecified M54.5 [place] [id number] [place] [address] 29168- 0925 January, [address] [id number] [place] [address] 63449- 7688 Dec, Low back pain, unspecified back pain laterality, with sciatica presence unspecified M54.5 [place] [place] [id number] [place] [address] 48972- 6196 Nov, Low back pain, unspecified back pain laterality, with sciatica presence unspecified M54.5 [place] [id number] [place] [address] 57230- 8423 Nov, [address] [id number] [place] [address] 60271- 0333 Nov, Low back pain, unspecified back pain laterality, with sciatica presence unspecified M54.5 ; Other chronic pain G89.29 ; Rheumatoid arthritis, involving unspecified site, unspecified rheumatoid factor presence M06.9 and Dysthymia F34.1 [address] 82036- 2047 Oct, Low back pain, unspecified back pain laterality, with sciatica presence unspecified M54.5 [address] 80627- 0044 Sep, Low back pain, unspecified back pain laterality, with sciatica presence unspecified M54.5 [facility] [id number] [place] [address] 88352 -1672 Sep, Fever R50.9 and URI, acute J06.9 [address] 75364- 3363 Aug, [address] 09009- 0199 Aug, Low back pain, unspecified back pain laterality, with sciatica presence unspecified M54.5 [place] [id number] [place] [address] 38460- 6703 Jul, Low back pain, unspecified back pain laterality, with sciatica presence unspecified M54.5 [facility] [id number] [place] [address] 95311 -8302 Jul, Nausea R11.0 ; Fever and chills R50.9 ; UTI symptoms R39.9 and Hematuria, unspecified type R31.9 [address] [place] [id number] [place] [address] 24511- 4414 Jul, [address] 92738- 9393 Jun, Low back pain, unspecified back pain laterality, with sciatica presence unspecified M54.5 [place] [id number] [place] [address] 36183- 2002 Jun, BMI 31.0-31.9,adult Z68.31 [address] [place] [id number] [place] [address] 72834- 4940 Jun, Neuropathy G62.9 [address] 518647- 2571 Jun, Low back pain, unspecified back pain laterality, with sciatica presence unspecified M54.5 [address] [place] [address] 99262- 2883 Jun, Encounter for immunization Z23 [address] 45836- 5902 Jun, BMI 31.0-31.9,adult Z68.31 [address] [place] [id number] [place] [address] 83100- 2545 Jun, Low back pain, unspecified back pain laterality, with sciatica presence unspecified M54.5 [address] [place] [id number] [place] [address] 82274- 8048 May, Low back pain, unspecified back pain laterality, with sciatica presence unspecified M54.5 ; Other chronic pain G89.29 ; Plantar fasciitis M72.2 ; Rheumatoid arthritis, involving unspecified site, unspecified rheumatoid factor presence M06.9 and History of alcohol abuse Z87.898 [address] [place] [id number] [place] [address] 24629- 9310 May, Anxiety F41.9 and Low back pain, unspecified back pain laterality, with sciatica presence unspecified M54.5 [place] [place] [id number] [place] [address] 39205- 1896 Apr, Anxiety F41.9 and Low back pain, unspecified back pain laterality, with sciatica presence unspecified M54.5 [place] [place] [id number] [place] [address] 67460- 5186 18 Mar, 2017 Acute right-sided low back pain without sciatica M54.5 ; Rash R21 ; Right flank pain R10.9 ; Lipid screening Z13.220 ; Other chronic pain G89.29 ; 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 ; Postoperative hypothyroidism E89.0 and Breast cancer screening Z12.39 [address] 48073- 7288 14 Mar, 2017 Anxiety F41.9 and Low back pain, unspecified back pain laterality, with sciatica presence unspecified M54.5 [address] [address] 15168- 0568 13 Mar, 2017 Acute right-sided low back pain without sciatica M54.5 [address] 45743- 1916 07 Mar, 2017 Anxiety F41.9 [address] 97570- 4024 Feb, Right flank pain R10.9 and Anxiety F41.9 [address] 70607- 9923 16 Feb, 2017 BMI 31.0-31.9,adult Z68.31 [address] 77645- 2290 Feb, Low back pain, unspecified back pain laterality, with sciatica presence unspecified M54.5 and Anxiety F41.9 [facility] [id number] [place] [address] 87790 -4188 January, Abscess of toe of right foot L02.611 and Other atopic dermatitis L20.89 [facility] [place] [id number] [place] [address] 31876- 0152 January, Low back pain, unspecified back pain laterality, with sciatica presence unspecified M54.5 and Anxiety F41.9 [facility] [place] [id number] [place] [address] 53854- 1270 Dec, Anxiety F41.9 and Low back pain, unspecified back pain laterality, with sciatica presence unspecified M54.5 [facility] [id number] [place] [address] 30774 -5831 Dec, Scabies B86 [facility] [place] [address] 919134- 6893 Nov, Rash R21 ; Other chronic pain G89.29 ; 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 ; Postoperative hypothyroidism E89.0 ; Breast cancer screening Z12.39 and Lipid screening Z13.220 [address] 670471- 6774 Nov, Anxiety F41.9 and Low back pain, unspecified back pain laterality, with sciatica presence unspecified M54.5 [facility] [place] [address] 17595- 3552 Oct, Anxiety F41.9 and Low back pain, unspecified back pain laterality, with sciatica presence unspecified M54.5 [facility] [place] [address] 87995- 9825 Sep, Anxiety F41.9 and Low back pain, unspecified back pain laterality, with sciatica presence unspecified M54.5 [facility] [place] [id number] [place] [address] 81887- 1475 Sep, Anxiety F41.9 [address] 42137- 5261 Sep, Gastro-esophageal reflux disease without esophagitis K21.9 [facility] [id number] [place] [address] [id number] Sep, Dental examination Z01.20 [facility] [place] [id number] [place] [address] 10476- 5765 Sep, Low back pain, unspecified back pain laterality, with sciatica presence unspecified M54.5 and Postoperative hypothyroidism E89.0 [facility] [place] [address] 11567- 4930 Aug, Anxiety F41.9 [facility] [place] [id number] [place] [address] 44234- 6470 Aug, [facility] [place] [address] 68796- 2458 Aug, Low back pain, unspecified back pain laterality, with sciatica presence unspecified M54.5 ; Other chronic pain G89.29 ; Thyroid cancer C73 and Postoperative hypothyroidism E89.0 [address] 03407- 4499 Jul, [facility] [place] [address] 60133- 0967 Jul, Anxiety F41.9 [address] 60538- 1356 Jul, [facility] [place] [address] 92423- 3367 Jul, BMI 29.0-29.9,adult Z68.29 [address] 87684- 0756 17 Jul, 2016 [facility] [place] [address] 16666- 5794 Jul, BMI 30.0-30.9,adult Z68.30 [facility] [place] [address] 57977- 5282 Jul, Low back pain, unspecified back pain laterality, with sciatica presence unspecified M54.5 and Anxiety F41.9 [facility] [place] [id number] [place] [address] 31998- 2116 Jun, 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 [facility] [place] [address] 69550- 0488 Jun, BMI 30.0-30.9,adult Z68.30 [facility] [place] [id number] [place] [address] 17527- 3284 14 Jun, 2016 [facility] [place] [address] 10895- 3642 10 Jun, 2016 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 ; Dysthymia F34.1 ; Encounter for immunization Z23 and Other chronic pain G89.29 [facility] [place] [address] 29876- 3227 Jun, Low back pain, unspecified back pain laterality, with sciatica presence unspecified M54.5 [address] 72727- 1179 Jun, BMI 30.0-30.9,adult Z68.30 [address] 80334- 0421 Jun, Anxiety F41.9 [facility] [place] [address] 93425- 0134 May, 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 [address] [id number] [place] [address] 59869- 6181 May, Constipation, unspecified constipation type K59.00 [address] [place] [id number] [place] [address] 88871- 6824 May, Low back pain, unspecified back pain laterality, with sciatica presence unspecified M54.5 [facility] [place] [id number] [place] [address] 24384- 6468 May, [facility] [place] [address] 16014- 1062 May, Constipation, unspecified constipation type K59.00 [facility] [place] [id number] [place] [address] 00504- 2063 May, Anxiety F41.9 [facility] [place] [address] [place] [address]- 1678 Apr, BMI 31.0-31.9,adult Z68.31 [facility] [place] [address] 12736- 5164 Apr, Thyroid goiter E04.9 [facility] [place] [address] 83885- 3956 Apr, [facility] [place] [address] 96312- 3382 Apr, Low back pain, unspecified back pain laterality, with sciatica presence unspecified M54.5 [address] 56693- 8805 Apr, [address] [place] 00288- 1432 Apr, Constipation, unspecified constipation type K59.00 ; Thyroid nodule E04.1 ; Family history of colon cancer Z80.0 and 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 [address] [id number] [place] [address] 56590- 7164 Apr, Anxiety F41.9 [address] [id number] [place] [address] 93778- 1784 Mar, [address] [id number] [place] [address] 10253- 3390 Mar, Low back pain, unspecified back pain laterality, with sciatica presence unspecified M54.5 [address] [id number] [place] [address] 93276- 9929 Mar, BMI 32.0-32.9,adult Z68.32 [facility] [place] [id number] [place] [address] 51179- 8855 Feb, Anxiety F41.9 [facility] [place] [id number] [place] [address] 05340- 8823 Feb, Depression, unspecified depression type F32.9 [address] [place] [address] 06797- 3556 30 Feb, 2016 BMI 32.0-32.9,adult Z68.32 [address] [id number] [place] [address] 25683- 6305 16 Feb, 2016 Low back pain, unspecified back pain laterality, with sciatica presence unspecified M54.5 [address] [id number] [place] [address] 41000- 9319 14 Feb, 2016 [address] [id number] [place] [address] 22416- 7213 03 Feb, 2016 BMI 32.0-32.9,adult Z68.32 [address] [id number] [place] [address] 51814- 8773 Feb, Anxiety F41.9 [id number] [place] [address] 24463- 4485 January, BMI 32.0-32.9,adult Z68.32 [id number] [place] [address] 22517- 0613 January, Low back pain, unspecified back pain laterality, with sciatica presence unspecified M54.5 ; Other chronic pain G89.29 ; Weight gain R63.5 and Rheumatoid arthritis, involving unspecified site, unspecified rheumatoid factor presence M06.9 [address] [place] [address] 35993- 5464 January, Low back pain, unspecified back pain laterality, with sciatica presence unspecified M54.5 [address] [place] [address] 13019- 5840 January, BMI 32.0-32.9,adult Z68.32 [id number] [place] [address] 23994- 1274 January, BMI 32.0-32.9,adult Z68.32 [address] [id number] [place] [address] 57228- 9977 January, BMI 32.0-32.9,adult Z68.32 [facility] [place] [address] 69086- 7843 Dec, Insomnia G47.00 and Dysthymia F34.1 [facility] [place] [address] 58042- 2340 Dec, [facility] [place] [address] 16391- 3604 Dec, Other chronic pain G89.29 ; Neuropathy G62.9 and Dysthymia F34.1 [facility] [place] [address] 51789- 4758 Dec, [facility] [place] [address] 06182- 2037 Nov, [facility] [place] [address] 20733- 5665 Nov, [facility] [place] [id number] [place] [address] 15560- 6539 Nov, [facility] [place] [address] 70281- 8297 Oct, [facility] [place] [id number] [place] [address] 93978- 9431 Oct, [facility] [place] [id number] [place] [address] 53312- 4738 Oct, Family history of diabetes mellitus Z83.3 [facility] [place] [address] 49554- 2739 Oct, [facility] [place] [address] 52937- 6283 Sep, [facility] [place] [id number] [place] [address] 73398- 0373 Sep, Eye pain, right H57.11 and Other chronic pain G89.29 [facility] [place] [id number] [place] [address] 15257- 6525 Sep, [facility] [place] [id number] [place] [address] 71134- 3571 Sep, [address] [place] [id number] [place] [address] 04791- 6408 Sep, 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 ; Neuropathy G62.9 ; Low back pain, unspecified back pain laterality, with sciatica presence unspecified M54.5 ; Gastro-esophageal reflux disease without esophagitis K21.9 and Encounter for long-term (current) use of other medications V58.69 [address] [place] [id number] [place] [address] 10477- 1193 Sep, [address] [place] [id number] [place] [address] 79230- 0975 Sep, [address] [id number] [place] [address] 02990- 3612 Sep, [address] [id number] [place] [address] 79911- 0044 Sep, [address] [id number] [place] [address] 70600- 8095 Aug, [address] [id number] [place] [address] 92806- 9974 Aug, Family history of diabetes mellitus Z83.3 [facility] [place] [id number] [place] [address] 44686- 9810 Aug, [place] [id number] [place] [address] 54475- 0104 Aug, [facility] [place] [id number] [place] [address] 06163- 6756 16 Aug, 2015 Family history of diabetes mellitus Z83.3 [address] [id number] [place] [address] 05540- 9489 14 Aug, 2015 Weight gain R63.5 ; Edema, unspecified R60.9 ; Family history of diabetes mellitus Z83.3 and Gastroesophageal reflux disease with esophagitis K21.0 [facility] [place] [id number] [place] [address] 42511- 5519 14 Aug, 2015 [facility] [place] [id number] [place] [address] 59162- 0390 Aug, [facility] [place] [id number] [place] [address] 37720- 7644 Jul, [facility] [place] [id number] [place] [address] 97966- 0271 Jul, [facility] [place] [id number] [place] [address] 26345- 6635 Jul, [facility] [place] [id number] [place] [address] 10724- 3486 Jun, [facility] [place] [id number] [place] [address] 69469- 1772 Jun, Nose pain J34.89 ; Encounter for immunization Z23 ; Screening for breast cancer Z12.39 and Encounter for long-term (current) use of other medications V58.69 [facility] [place] [id number] [address]- 2333 Jun, [facility] [place] [id number] [place] [address] 97116- 9528 23 May, 2015 [facility] [place] [id number] [place] [address] 43137- 0516 18 May, 2015 [facility] [place] [id number] [place] [address] 56885- 7052 17 May, 2015 [facility] [place] [id number] [place] [address] 25896- 1358 17 May, 2015 [facility] [place], [facility] [id number] [place] [phone] May, [place] [address] [id number] [address] May, [facility] [place], [facility] [id number] [address] May, [facility] [place], [facility] [id number] [address] Apr, [facility] [place], [facility] [id number] [address] Apr, [facility], [place], [facility] [id number] [address] Apr, [facility] [place], [facility] [address] [id number] [address] Mar, [facility] [place] [id number] [address] Mar, [facility] [place] [id number] [address] Mar, Lesion of left shoulder 709.9 [facility] [place] [address] [address] Mar, [facility] [place] [address] [address] Mar, [facility] [place] [id number] [address] Mar, [facility] [place] [id number] [address] Feb, [facility] [place] [address] [address] Feb, [facility] [place] [address] [address] Feb, Unspecified backache 724.5 ; Weight gain 783.1 ; Hypothyroid 244.9 ; Edema 782.3 and Diaphoresis 780.8 [facility] [place] [address] [address] 18 Feb, 2015 [facility] [place] [facility] [address] [id number] [place] [address]- 3416 10 Feb, 2015 [facility] [place] [facility] [address] [id number] [place] [address] 09 Feb, 2015 [facility] [place] [facility] [address] [id number] [place] [address]- 6914 04 Feb, 2015 [facility] [place] [facility] [address] [id number] [place] [address]- 8171 03 Feb, 2015 [facility] [place] [facility] [address] [id number] [place] [address]- 7166 January, [facility] [place] [facility] [address] [id number] [place] [address]- 4846 January, [facility] [place] [facility] [address] [id number] [place] [address]- 3960 14 Dec, 2014 [facility] [place] [facility] [address] [id number] [place] [address]- 1806 13 Dec, 2014 [facility] [place] [facility] [address] [id number] [place] [address]- 8331 16 Nov, 2014 [facility] [place] [facility] [address] [id number] [place] [address]- 0721 16 Nov, 2014 [facility] [place] [facility] [address] [id number] [place] [address]- 2292 16 Nov, 2014 [facility] [place] [facility] [address] [id number] [place] [address]- 5421 16 Nov, 2014 [facility] [place] [facility] [address] [id number] [place] [address]- 0627 16 Nov, 2014 [facility] [place] [facility] [address] [id number] [place] [address]- 3979 16 Nov, 2014 [facility] [place] [facility] [address] [id number] [place] [address]- 8860 12 Nov, 2014 [facility] [place] [facility] [address] [id number] [place] [address]- 6156 Nov, [facility] [place] [facility] [address] [id number] [place] [address]- 2550 Nov, [facility] [place] [facility] [address] [id number] [place] [address]- 5914 Nov, [facility] [place] [facility] [address] [id number] [place] [address]- 8343 Nov, [facility] [place] [facility] [address] [id number] [place] [address]- 3385 Nov, [facility] [place] [facility] [address] [id number] [place] [address]- 7080 Nov, [facility] [place] [facility] [address] [id number] [place] [address]- 7632 Oct, [facility] [place] [facility] [address] [id number] [place] [address]- 0251 Oct, [facility] [place] [facility] [address] [id number] [place] [address]- 6629 Sep, [facility] [place] [facility] [address] [id number] [place] [address]- 5712 Sep, [facility] [place] [facility] [address] [id number] [place] [address]- 5422 Aug, [facility] [place] [facility] [address] [id number] [place] [address]- 9142 Aug, [facility] [place] [facility] [address] [id number] [place] [address]- 7324 Aug, [facility] [place] [facility] [address] [id number] [place] [address]- 9159 Aug, [facility] [place] [facility] [address] [id number] [place] [address] Aug, [facility] [place] [facility] [address] [id number] [place] [address]- 3601 17 Aug, 2014 [facility] [place] [facility] [address] [id number] [place] [address]- 4695 Aug, [facility] [place] [facility] [address] [id number] [place] [address]- 2637 Aug, [facility] [place] [facility] [address] [id number] [place] [address]- 6891 Aug, [facility] [place] [facility] [address] [id number] [place] [address]- 0759 Jul, [facility] [place] [facility] [address] [id number] [place] [address]- 5003 Jul, [facility] [place] [facility] [address] [id number] [place] [address]- 4910 Jul, [facility] [place] [facility] [address] [id number] [place] [address]- 7105 Jul, [facility] [place] [facility] [address] [id number] [place] [address]- 4301 Jul, [facility] [place] [facility] [address] [id number] [place] [address]- 4548 Jul, [facility] [place] [facility] [address] [id number] [place] [address]- 7272 Jul, [facility] [place] [facility] [address] [id number] [place] [address]- 4826 Jul, [facility] [place] [facility] [address] [id number] [place] [address]- 9714 Jul, [facility] [place] [facility] [address] [id number] [place] [address]- 9454 Jul, [facility] [place] [facility] [address] [id number] [place] [address]- 7218 Jun, [facility] [place] [facility] [address] [id number] [place] [address]- 3470 Jun, [facility] [place] [facility] [address] [id number] [place] [address]- 2667 Jun, [facility] [place] [facility] [address] [id number] [place] [address]- 3124 Jun, [facility] [place] [facility] [address] [id number] [place] [address]- 0730 Jun, [facility] [place] [facility] [address] [id number] [place] [address]- 8708 Jun, [facility] [place] [facility] [address] [id number] [place] [address]- 7737 30 May, 2013 [facility] [place] [facility] [address] [id number] [place] [address]- 3727 30 May, 2013 [facility] [place] [facility] [address] [id number] [place] [address]- 9439 29 May, 2013 [facility] [place] [facility] [address] [id number] [place] [address]- 2547 29 May, 2013 [facility] [place] [facility] [address] [id number] [place] [address]- 2548 24 May, 2013 [facility] [place] [facility] [address] [id number] [place] [address]- 2541 24 May, 2013 [facility] [place] [facility] [address] [id number] [place] [address]- 7067 22 May, 2013 [facility] [place] [facility] [address] [id number] [place] [address]- 2542 22 May, 2013 [facility] [place] [facility] [address] [id number] [place] [address]- 2543 05 Sep, 2013 [facility] [place] [facility] [address] [id number] [place] [address]- 2548 05 Sep, 2013 [facility] [place] [facility] [address] [id number] [place] [address]- 2548 02 Sep, 2013 [facility] [place] [facility] [address] [id number] [place] [address] May, [facility] [place] [facility] [address] [id number] [place] [address]- 1974 Apr, [facility] [place] [facility] [address] [id number] [place] [address]- 0490 Apr, [facility] [place] [facility] [address] [id number] [place] [address]- 7194 Apr, [facility] [place] [facility] [address] [id number] [place] [address]- 3103 Apr, [facility] [place] [facility] [address] [id number] [place] [address]- 5899 Apr, [facility] [place] [facility] [address] [id number] [place] [address]- 4941 Apr, [facility] [place] [facility] [address] [id number] [place] [address]- 6935 Apr, [facility] [place] [facility] [address] [id number] [place] [address]- 8723 Apr, [facility] [place] [facility] [address] [id number] [place] [address]- 9309 Apr, [facility] [place] [facility] [address] [id number] [place] [address]- 7123 Apr, [facility] [place] [facility] [address] [id number] [place] [address]- 9473 Apr, [facility] [place] [facility] [address] [id number] [address]- 1061 Apr, [facility] [place] [facility] [address] [id number] [place] [address]- 0576 Apr, [facility] [place] [facility] [address] [id number] [place] [address]- 5519 Apr, [facility] [place] [facility] [address] [id number] [place] [address]- 2809 Apr, [facility] [place] [facility] [address] [id number] [address]- 4410 Apr, [facility] [place] [facility] [address] [id number] [place] [address]- 7708 Apr, [facility] [place] [facility] [address] [id number] [place] [address]- 9735 Apr, [facility] [place] [facility] [address] [id number] [place] [address]- 2738 Apr, [facility] [place] [facility] [address] [id number] [place] [address]- 0363 Apr, [facility] [place] [facility] [address] [id number] [place] [address]- 7532 Apr, [facility] [place] [facility] [address] [id number] [place] [address]- 7393 Apr, [facility] [place] [facility] [address] [id number] [place] [address]- 1368 Apr, [facility] [place] [facility] [address] [id number] [place] [address]- 0951 Mar, [facility] [place] [facility] [address] [id number] [place] [address]- 0695 Mar, [facility] [place] [facility] [address] [id number] [place] [address]- 3077 Mar, [facility] [place] [facility] [address] [id number] [place] [address]- 4493 Mar, [facility] [place] [facility] [address] [id number] [place] [address]- 9710 Mar, [facility] [place]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
--- OUTSIDE RECORDS SUMMARY | 2018-06-07 11:37 | XMS REPORT ---
Author Author ELISEO BENDER [facility] Address [address] [place] [address] Care Team Providers Care Fur Tanner Name Role Phone ELISEO BENDER Unavailable PROBLEMS Type Condition ICD9-CM Code KNJ79-IN Code Onset Dates Condition Status SNOMED Code Problem Chest pain, unspecified type R07.9 Active 38884407 Problem Depression, unspecified depression type F32.9 Active 27394405 Problem Anxiety F41.9 Active 71993897 Problem BMI 30.0-30.9,adult Z68.30 Active 301096417 Problem Moderate episode of recurrent major depressive disorder F33.1 Active 046662703 Problem Thyroid cancer C73 Active 044584027 Problem Postoperative hypothyroidism E89.0 Active 16494349 Problem BMI 31.0-31.9,adult Z68.31 Active 239305541 Problem Other atopic dermatitis L20.89 Active 66503094 Problem Low back pain, unspecified back pain laterality, with sciatica presence unspecified M54.5 Active 724065360 Problem Neuropathy G62.9 Active 535207836 Problem Other chronic pain G89.29 Active 39783106 Problem Dysthymia F34.1 Active 76283668 Problem 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 Active 03029710 Problem Insomnia G47.00 Active 011305187 Problem Gastro-esophageal reflux disease without esophagitis K21.9 Active 014066999 Problem Rheumatoid arthritis, involving unspecified site, unspecified rheumatoid factor presence M06.9 Active 81929800 ALLERGIES No Information ENCOUNTERS Encounter Location Date Diagnosis [facility] [address] [facility] [id number] [address] Mar, Breast cancer screening Z12.39 and Discharge from nipple N64.52 [facility] [address] [facility] [id number], [place] [address] Mar, Low back pain, unspecified back pain laterality, with sciatica presence unspecified M54.5 [place] [address] [place] [id number] [place] [address] 91428- 2404 Mar, Low back pain, unspecified back pain laterality, with sciatica presence unspecified M54.5 ; Rheumatoid arthritis, involving unspecified site, unspecified rheumatoid factor presence M06.9 ; Breast cancer screening Z12.39 and Moderate episode of recurrent major depressive disorder F33.1 [place] [address] [id number] [place] [address] 98902- 8166 Feb, Low back pain, unspecified back pain laterality, with sciatica presence unspecified M54.5 [place] [address] 48815- 0108 January, BMI 30.0-30.9,adult Z68.30 [facility] [address] [place] [id number] [place] [address] 22335- 4246 January, Low back pain, unspecified back pain laterality, with sciatica presence unspecified M54.5 [place] [address] [place] [id number] [place] [address] 03977- 3838 January, [place] [address] [place] [id number] [place] [address] 66533- 3194 Dec, Low back pain, unspecified back pain laterality, with sciatica presence unspecified M54.5 [place] [address] [id number] [place] [address] 59852- 6544 Nov, Low back pain, unspecified back pain laterality, with sciatica presence unspecified M54.5 [place] [address] [id number] [place] [address] 16759- 1185 Nov, [place] [address] [id number] [place] [address] 70915- 1231 Nov, Low back pain, unspecified back pain laterality, with sciatica presence unspecified M54.5 ; Other chronic pain G89.29 ; Rheumatoid arthritis, involving unspecified site, unspecified rheumatoid factor presence M06.9 and Dysthymia F34.1 [facility] [address] [id number] [place] [address] 71547- 3741 Oct, Low back pain, unspecified back pain laterality, with sciatica presence unspecified M54.5 [place] [id number] [place] [address] 43147- 5780 Sep, Low back pain, unspecified back pain laterality, with sciatica presence unspecified M54.5 [facility] [address] 9[address]74 -2161 Sep, Fever R50.9 and URI, acute J06.9 [place] [address] 69743- 7245 Aug, [place] [address] 54638- 2203 Aug, Low back pain, unspecified back pain laterality, with sciatica presence unspecified M54.5 [place] [address] 94181- 3801 Jul, Low back pain, unspecified back pain laterality, with sciatica presence unspecified M54.5 [facility] [address] [id number] [place] [address] 71816 -7030 Jul, Nausea R11.0 ; Fever and chills R50.9 ; UTI symptoms R39.9 and Hematuria, unspecified type R31.9 [place] [address] [id number] [place] [address] 09052- 2988 Jul, [place] [address] 36910- 4746 Jun, Low back pain, unspecified back pain laterality, with sciatica presence unspecified M54.5 [place] [id number] [place] [address] 93525- 7211 Jun, BMI 31.0-31.9,adult Z68.31 [place] [address] 99910- 0011 Jun, Neuropathy G62.9 [place] [address] 92269- 9807 Jun, Low back pain, unspecified back pain laterality, with sciatica presence unspecified M54.5 [place] [address] 78789- 9659 Jun, Encounter for immunization Z23 [place] [address] 23011- 4642 Jun, BMI 31.0-31.9,adult Z68.31 [place] [address] 69119- 9043 Jun, Low back pain, unspecified back pain laterality, with sciatica presence unspecified M54.5 [place] [address] 03145- 7803 May, Low back pain, unspecified back pain laterality, with sciatica presence unspecified M54.5 ; Other chronic pain G89.29 ; Plantar fasciitis M72.2 ; Rheumatoid arthritis, involving unspecified site, unspecified rheumatoid factor presence M06.9 and History of alcohol abuse Z87.898 [place] [address] 62773- 1586 May, Anxiety F41.9 and Low back pain, unspecified back pain laterality, with sciatica presence unspecified M54.5 [place] [address] 49006- 3078 Apr, Anxiety F41.9 and Low back pain, unspecified back pain laterality, with sciatica presence unspecified M54.5 [place] [address] 26912- 1992 Mar, Acute right-sided low back pain without sciatica M54.5 ; Rash R21 ; Right flank pain R10.9 ; Lipid screening Z13.220 ; Other chronic pain G89.29 ; 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 ; Postoperative hypothyroidism E89.0 and Breast cancer screening Z12.39 [place] [address] [id number] [place] [address] 33866- 5662 14 Mar, 2017 Anxiety F41.9 and Low back pain, unspecified back pain laterality, with sciatica presence unspecified M54.5 [place] [address] 51783- 4111 13 Mar, 2017 Acute right-sided low back pain without sciatica M54.5 [place] [address] 36683- 7325 07 Mar, 2017 Anxiety F41.9 [place] [address] 37477- 3150 28 Feb, 2017 Right flank pain R10.9 and Anxiety F41.9 [place] [address] 94056- 4463 16 Feb, 2017 BMI 31.0-31.9,adult Z68.31 [facility] [address] 99836- 0111 16 Feb, 2017 Low back pain, unspecified back pain laterality, with sciatica presence unspecified M54.5 and Anxiety F41.9 [facility] [place] [id number] [place] [address] 23165 -2951 January, Abscess of toe of right foot L02.611 and Other atopic dermatitis L20.89 [facility] [place] [address] [address] [id number] [place] [address] 15457- 1078 January, Low back pain, unspecified back pain laterality, with sciatica presence unspecified M54.5 and Anxiety F41.9 [place] [address] 37910- 8391 Dec, Anxiety F41.9 and Low back pain, unspecified back pain laterality, with sciatica presence unspecified M54.5 [facility] [address] [place] [address] [id number] [place] [address] 77018 [address]1945 Dec, Scabies [address] [place] [address] 48157- 0309 Nov, Rash R21 ; Other chronic pain G89.29 ; 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 ; Postoperative hypothyroidism E89.0 ; Breast cancer screening Z12.39 and Lipid screening Z13.220 [place] [address] 89506- 1411 Nov, Anxiety F41.9 and Low back pain, unspecified back pain laterality, with sciatica presence unspecified M54.5 [place] [address] 52282- 1103 Oct, Anxiety F41.9 and Low back pain, unspecified back pain laterality, with sciatica presence unspecified M54.5 [place] [address] 15345- 4063 Sep, Anxiety F41.9 and Low back pain, unspecified back pain laterality, with sciatica presence unspecified M54.5 [place] [address] 35020- 1245 Sep, Anxiety F41.9 [place] [address] 45784- 5883 Sep, Gastro-esophageal reflux disease without esophagitis K21.9 [facility] [address] [id number] Sep, Dental examination Z01.20 [place] [address] 50547- 2598 Sep, Low back pain, unspecified back pain laterality, with sciatica presence unspecified M54.5 and Postoperative hypothyroidism E89.0 [place] [address] 78155- 2182 Aug, Anxiety F41.9 [place] [address] 20949- 5062 Aug, [facility] [place] [address] [id number] [place] [address] 87803- 6266 Aug, Low back pain, unspecified back pain laterality, with sciatica presence unspecified M54.5 ; Other chronic pain G89.29 ; Thyroid cancer C73 and Postoperative hypothyroidism E89.0 [place] [address] [id number] [place] [address] 40593- 8274 Jul, [place] [address] 28763- 1545 Jul, Anxiety F41.9 [place] [address] 80615- 6132 Jul, [place] [address] 85456- 2633 Jul, BMI 29.0-29.9,adult Z68.29 [place] [address] 63535- 1524 Jul, [place] [address] 33791- 6575 Jul, BMI 30.0-30.9,adult Z68.30 [facility] [address] [id number] [place] [address] 87918- 8920 Jul, Low back pain, unspecified back pain laterality, with sciatica presence unspecified M54.5 and Anxiety F41.9 [facility] [place] [address] [id number] [place] [address] 18837- 7096 Jun, 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 [facility] [place] [address] [id number] [place] [address] 67380- 1575 Jun, BMI 30.0-30.9,adult Z68.30 [place] [address] [id number] [place] [address] 88291- 0919 14 Jun, 2016 [place] [address] 84035- 1480 Jun, 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 ; Dysthymia F34.1 ; Encounter for immunization Z23 and Other chronic pain G89.29 [place] [address] 35978- 9798 06 Jun, 2016 Low back pain, unspecified back pain laterality, with sciatica presence unspecified M54.5 [place] [address] 11220- 1368 Jun, BMI 30.0-30.9,adult Z68.30 [place] [address] 67842- 9254 Jun, Anxiety F41.9 [place] [address] 58382- 4790 May, 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 [place] [address] 63391- 6565 May, Constipation, unspecified constipation type K59.00 [place] [address] 04185- 4734 08 May, 2016 Low back pain, unspecified back pain laterality, with sciatica presence unspecified M54.5 [place] [address] 04924- 7478 08 May, 2016 [place] [address] 15867- 1151 May, Constipation, unspecified constipation type K59.00 [place] [address] 26323- 7924 May, Anxiety F41.9 [place] [address] 82826- 7529 Apr, BMI 31.0-31.9,adult Z68.31 [place] [address] 15895- 2856 Apr, Thyroid goiter E04.9 [place] [address] [place] [id number] [place] [address]- 4248 Apr, [facility] [address] [id number] [place] [address] 80298- 0894 Apr, Low back pain, unspecified back pain laterality, with sciatica presence unspecified M54.5 [facility] [id number] [place] [address] 97640- 5975 Apr, [facility] [address] 46663- 2389 Apr, Constipation, unspecified constipation type K59.00 ; Thyroid nodule E04.1 ; Family history of colon cancer Z80.0 and 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 [place] [id number] [place] [address] 39304- 7726 Apr, Anxiety F41.9 [place] [address] [id number] [place] [address] 05345- 6021 Mar, [place] [address] 57152- 5461 Mar, Low back pain, unspecified back pain laterality, with sciatica presence unspecified M54.5 [place] [id number] [place] [address] 95152- 0386 Mar, BMI 32.0-32.9,adult Z68.32 [place] [address] [place] [id number] [place] [address] 48642- 6674 Feb, Anxiety F41.9 [place] [id number] [place] [address] 39706- 6850 Feb, Depression, unspecified depression type F32.9 [place] [address] [place] [id number] [place] [address] 42429- 2613 Feb, BMI 32.0-32.9,adult Z68.32 [facility] [address] [id number] [place] [address] 66438- 2008 Feb, Low back pain, unspecified back pain laterality, with sciatica presence unspecified M54.5 [place] [address] [place] [id number] [place] [address] 07076- 8965 14 Feb, 2016 [place] [address] [place] [id number] [place] [address] 84807- 0291 03 Feb, 2016 BMI 32.0-32.9,adult Z68.32 [place] [address] [place] [id number] [place] [address] 68999- 6194 Feb, Anxiety F41.9 [place] [id number] [place] [address] 51030- 3667 January, BMI 32.0-32.9,adult Z68.32 [place] [address] [id number] [place] [address] 58861- 9090 January, Low back pain, unspecified back pain laterality, with sciatica presence unspecified M54.5 ; Other chronic pain G89.29 ; Weight gain R63.5 and Rheumatoid arthritis, involving unspecified site, unspecified rheumatoid factor presence M06.9 [place] [address] [id number] [place] [address] 70290- 6529 January, Low back pain, unspecified back pain laterality, with sciatica presence unspecified M54.5 [place] [address] [place] [id number] [place] [address] 23334- 4110 January, BMI 32.0-32.9,adult Z68.32 [place] [address] [place] [id number] [place] [address] 03984- 0224 January, BMI 32.0-32.9,adult Z68.32 [place] [address] [id number] [place] [address] 63438- 0649 05 Jan, 2016 BMI 32.0-32.9,adult Z68.32 [place] [address] [place] [id number] [place] [address] 07579- 6489 Dec, Insomnia G47.00 and Dysthymia F34.1 [place] [address] [address] [id number] [address]- 2902 Dec, [facility] [address] [id number] [place] [address] 36952- 6415 Dec, Other chronic pain G89.29 ; Neuropathy G62.9 and Dysthymia F34.1 [facility] [address] [id number] [place] [address] 45649- 8724 Dec, [facility] [id number] [place] [address] 30436- 8382 Nov, [facility] [address] [id number] [place] [address] 13233- 4983 Nov, [facility] [address] [id number] [place] [address] 83177- 7245 Nov, [facility] [id number] [place] [address] 01865- 4851 Oct, [facility] [address] [id number] [place] [address] 02430- 9621 Oct, [facility] [id number] [place] [address] 35020- 2804 Oct, Family history of diabetes mellitus Z83.3 [facility] [address] [address]- 9220 Oct, [facility] [address] [id number] [place] [address] 42305- 5213 Sep, [facility] [id number] [place] [address] 79321- 8448 Sep, Eye pain, right H57.11 and Other chronic pain G89.29 [facility] [address] [id number] [place] [address] 79005- 2324 Sep, [facility] [address] [address]- 6528 Sep, [facility] [address] [id number] [place] [address] 99267- 6855 Sep, 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 ; Neuropathy G62.9 ; Low back pain, unspecified back pain laterality, with sciatica presence unspecified M54.5 ; Gastro-esophageal reflux disease without esophagitis K21.9 and Encounter for long-term (current) use of other medications V58.69 [place] [id number] [place] [address] 55387- 0156 Sep, [place] [address] [id number] [place] [address] 45996- 4354 Sep, [place] [address] [id number] [place] [address] 85212- 8167 Sep, [place] [id number] [place] [address] 53705- 3392 Sep, [place] [address] [place] [id number] [place] [address] 72621- 1072 Aug, [place] [address] [place] [id number] [place] [address] 01174- 9281 Aug, Family history of diabetes mellitus Z83.3 [place] [address] [place] [id number] [place] [address] 05226- 4735 Aug, [place] [address] [place] [address] 86543- 2893 Aug, [place] [address] [id number] [place] [address] 03814- 7352 16 Aug, 2015 Family history of diabetes mellitus Z83.3 [place] [address] [place] [id number] [place] [address] 31829- 8609 14 Aug, 2015 Weight gain R63.5 ; Edema, unspecified R60.9 ; Family history of diabetes mellitus Z83.3 and Gastroesophageal reflux disease with esophagitis K21.0 [place] [address] [place] [address] 74400- 8059 Aug, [place] [address] [id number] [address]- 5128 Aug, [facility] [address] [id number] [place] [address] 45207- 3523 Jul, [facility] [address] [id number] [place] [address] 36002- 2628 Jul, [facility] [address] [id number] [place] [address] 02737- 7166 Jul, [facility] [address] [id number] [place] [address] 00682- 0067 Jun, [facility] [address] [id number] [place] [address] 77604- 1886 Jun, Nose pain J34.89 ; Encounter for immunization Z23 ; Screening for breast cancer Z12.39 and Encounter for long-term (current) use of other medications V58.69 [facility] [address] [id number] [place] [address] 54842- 3461 Jun, [facility] [address] [place] [address] 38689- 0774 23 May, 2015 [facility] [id number] [place] [address] 35008- 9410 18 May, 2015 [facility] [address] [place] [address] 26528- 9508 17 May, 2015 [facility] [address] [place] [address] 97479- 6673 17 May, 2015 [facility] [address] [place] [address] 20780- 2547 10 May, 2015 [facility] [address] [place] [id number] [place] [address] 24792- 2542 02 May, 2015 [facility] [address] [place] [address] 73982- 2541 02 May, 2015 [facility] [address] [id number] [place] [address] 69399- 0886 Apr, [facility] [address] [address]- 9537 Apr, [facility] [address], [place] [address]- 7577 Apr, [facility] [id number] [address]- 7241 Mar, [facility] [id number] [place] [address] 91132- 9895 Mar, [facility] [address] [place] [address] 99599- 1678 Mar, Lesion of left shoulder 709.9 [facility] [id number] [place] [address] 29718- 2149 Mar, [facility] [address] [id number] [place] [address] 11413- 4765 Mar, [facility] [address], [place] [address]- 0358 Mar, [facility] [id number] [address]- 9564 Feb, [facility] [id number] [address]- 9668 Feb, [facility] [address], [place] [address]- 5281 Feb, Unspecified backache 724.5 ; Weight gain 783.1 ; Hypothyroid 244.9 ; Edema 782.3 and Diaphoresis 780.8 [facility] [address], [place] [address]- 6530 Feb, [facility] [id number] [address]- 1913 Feb, [facility] [address], [place] [address]- 5436 Feb, [facility] [place] [facility] [address] [id number] [place] [address]- 3904 Feb, [facility] [place] [facility] [address] [id number] [place] [address]- 4200 Feb, [facility] [place] [facility] [address] [id number] [place] [address]- 7726 January, [facility] [place] [facility] [address] [id number] [place] [address]- 1847 January, [facility] [place] [facility] [address] [id number] [place] [address]- 1020 Dec, [facility] [place] [facility] [address] [id number] [place] [address]- 9303 Dec, [facility] [place] [facility] [address] [id number] [place] [address]- 1593 16 Nov, 2014 [facility] [place] [facility] [address] [id number] [place] [address]- 0505 16 Nov, 2014 [facility] [place] [facility] [address] [id number] [place] [address]- 5902 16 Nov, 2014 [facility] [place] [facility] [address] [id number] [place] [address]- 1102 16 Nov, 2014 [facility] [place] [facility] [address] [id number] [place] [address]- 8067 16 Nov, 2014 [facility] [place] [facility] [address] [id number] [place] [address]- 8622 16 Nov, 2014 [facility] [place] [facility] [address] [id number] [place] [address]- 1370 12 Nov, 2014 [facility] [place] [facility] [address] [id number] [place] [address]- 3791 12 Nov, 2014 [facility] [place] [facility] [address] [id number] [place] [address]- 7310 11 Nov, 2014 [facility] [place] [facility] [address] [id number] [place] [address] Nov, [facility] [place] [facility] [address] [id number] [place] [address] Nov, [facility] [place] [facility] [address] [id number] [place] [address] Nov, [facility] [place] [facility] [address] [id number] [place] Nov, [facility] [place] [facility] [address] [id number] [place] [address] Oct, [facility] [place] [facility] [address] [id number] [place] [address] Oct, [facility] [place] [facility] [address] [id number] [place] [address] Sep, [facility] [place] [facility] [address] [id number] [place] [address] Sep, [facility] [place] [facility] [address] [id number] [place] [address] Aug, [facility] [place] [facility] [address] [id number] [place] [address] Aug, [facility] [place] [facility] [address] [id number] [place] [address] Aug, [facility] [place] [facility] [address] [id number] [place] [address] Aug, [facility] [place] [facility] [address] [id number] [place] [address] Aug, [facility] [place] [facility] [address] [id number] [place] [address] Aug, [facility] [place] [facility] [address] [id number] [place] [address] Aug, [facility] [place] [facility] [address] [id number] [place] [address] Aug, [facility] [place] [facility] [address] [id number] [place] [address] Aug, [facility] [place] [facility] [address] [id number] [place] [address] 30[address] Jul, [facility] [place] [facility] [address] [id number] [place] [address]- 3578 Jul, [facility] [place] [facility] [address] [id number] [place] [address]- 2862 Jul, [facility] [place] [facility] [address] [id number] [place] [address] 4928 Jul, [facility] [place] [facility] [address] [id number] [place] [address] 6460 Jul, [facility] [place] [facility] [address] [id number] [place] [address]- 9758 Jul, [facility] [place] [facility] [address] [id number] [place] [address]- 3524 Jul, [facility] [place] [facility] [address] [id number] [place] [address]- 378[address] Jul, [facility] [place] [facility] [address] [id number] [place] [address]- 4540 Jul, [facility] [place] [facility] [address] [id number] [place] [address]- 9963 Jul, [facility] [place] [facility] [address] [id number] [place] [address]- 3120 Jun, [facility] [place] [facility] [address] [id number] [place] [address]- 3377 Jun, [facility] [place] [facility] [address] [id number] [place] [address]- 0868 Jun, [facility] [place] [facility] [address] [id number] [place] [address]- 5420 Jun, [facility] [place] [facility] [address] [id number] [place] [address]- 3150 Jun, [facility] [place] [facility] [address] [id number] [place] [address]- 2741 Jun, [facility] [place] [facility] [address] [id number] [place] [address]- 4549 30 May, 2013 [facility] [place] [facility] [address] [id number] [place] [address]- 9169 30 May, 2013 [facility] [place] [facility] [address] [id number] [place] [address]- 0603 29 May, 2013 [facility] [place] [facility] [address] [id number] [place] [address]- 8396 29 May, 2013 [facility] [place] [facility] [address] [id number] [place] [address]- 1019 24 May, 2013 [facility] [place] [facility] [address] [id number] [place] [address]- 5783 May, 2013 [facility] [place] [facility] [address] [id number] [place] [address]- 7474 May, 2013 [facility] [place] [facility] [address] [id number] [place] [address]- 1022 May, [facility] [place] [facility] [address] [id number] [place] [address]- 4011 May, [facility] [place] [facility] [address] [id number], [place] [address]- 24[address] May, [facility] [place] [facility] [address] [id number], [place] [address]- 9313 May, [facility] [place] [facility] [address] [id number] [place] [address]- 5388 May, [facility] [place] [facility] [address] [id number] [place] [address]- 1960 Apr, [facility] [place] [facility] [address] [id number], [place] [address]- 8416 Apr, [facility] [place] [facility] [address] [id number], [place] [address]- 6534 Apr, [facility] [place] [facility] [address] [id number] [place] [address]- 8535 Apr, [facility] [place] [facility] [address] [id number] [place] [address]- 0588 Apr, [facility] [place] [facility] [address] [id number] [place] [address]- 6282 Apr, [facility] [place] [facility] [address] [id number] [place] [address]- 8338 Apr, [facility] [place] [facility] [address] [id number] [place] [address]- 1468 Apr, [facility] [place] [facility] [address] [id number] [place] [address]- 3394 Apr, [facility] [place] [facility] [address] [id number] [place] [address]- 8091 Apr, [facility] [place] [facility] [address] [id number] [place] [address]- 4302 Apr, [facility] [place] [facility] [address] [id number] [place] [address]- 1654 Apr, [facility] [place] [facility] [address] [id number] [place] [address]- 2420 Apr, [facility] [place] [facility] [address] [id number] [place] [address]- 7391 Apr, [facility] [place] [facility] [address] [id number], [place] [address]- 2415 Apr, [facility] [place] [facility] [address] [id number] [place] [address]- 0514 Apr, [facility] [place] [facility] [address] [id number] [place] [address]- 6650 Apr, [facility] [place] [facility] [address] [id number] [place] [address]- 0169 Apr, [facility] [place] [facility] [address] [id number] [place] [address]- 0738 Apr, [facility] [place] [facility] [address] [id number] [place] [address]- 1215 Apr, [facility] [place] [facility] [address] [id number] [place] [address] Apr, [facility] [place] [facility] [address] [id number] [place] [address]- 7587 Apr, [facility] [place] [facility] [address] [id number] [place] [address]- 1077 Apr, [facility] [place] [facility] [address] [id number] [place] [address]- 9208 Mar, [facility] [place] [facility] [address] [id number] [place] [address]- 1833 Mar, [facility] [place] [facility] [address] [id number] [place] [address]- 6111 Mar, [facility] [place] [facility] [address] [id number] [place] [address]- 2043 Mar, [facility] [place] [facility] [address] [id number] [place] [address]- 8337 Mar, [facility] [place]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
--- OUTSIDE RECORDS SUMMARY | 2018-06-07 11:38 | XMS REPORT ---
Author Author ELISEO BENDER [facility] Address [address] [place] [address] Care Team Providers Care Paper Sales Representative Name Role Phone ELISEO BENDER Unavailable PROBLEMS Type Condition ICD9-CM Code ZBF07-XH Code Onset Dates Condition Status SNOMED Code Problem Chest pain, unspecified type R07.9 Active 70934190 Problem Depression, unspecified depression type F32.9 Active 82918481 Problem Anxiety F41.9 Active 99877069 Problem BMI 30.0-30.9,adult Z68.30 Active 760002507 Problem Moderate episode of recurrent major depressive disorder F33.1 Active 129106912 Problem Thyroid cancer C73 Active 366626497 Problem Postoperative hypothyroidism E89.0 Active 26094383 Problem BMI 31.0-31.9,adult Z68.31 Active 090572953 Problem Other atopic dermatitis L20.89 Active 47260356 Problem Low back pain, unspecified back pain laterality, with sciatica presence unspecified M54.5 Active 849481914 Problem Neuropathy G62.9 Active 816108857 Problem Other chronic pain G89.29 Active 95456855 Problem Dysthymia F34.1 Active 64281406 Problem 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 Active 60798516 Problem Insomnia G47.00 Active 362923672 Problem Gastro-esophageal reflux disease without esophagitis K21.9 Active 635934430 Problem Rheumatoid arthritis, involving unspecified site, unspecified rheumatoid factor presence M06.9 Active 34446324 ALLERGIES Substance Reaction Event Type Date Status Penicillin V Potassium anaphylaxis Drug Allergy Nov, Active Klonopin Makes her cry all the time Drug Allergy Nov, Active ENCOUNTERS Encounter Location Date Diagnosis [facility] [address] [facility] [id number] [address] Mar, Breast cancer screening Z12.39 and Discharge from nipple N64.52 [facility] [id number] [place] [address] 37337- 1194 Mar, Low back pain, unspecified back pain laterality, with sciatica presence unspecified M54.5 [place] [address] 53140- 4974 Mar, Low back pain, unspecified back pain laterality, with sciatica presence unspecified M54.5 ; Rheumatoid arthritis, involving unspecified site, unspecified rheumatoid factor presence M06.9 ; Breast cancer screening Z12.39 and Moderate episode of recurrent major depressive disorder F33.1 [place] [address] 45664- 7669 08 Feb, 2018 Low back pain, unspecified back pain laterality, with sciatica presence unspecified M54.5 [place] [address] 02326- 6660 January, BMI 30.0-30.9,adult Z68.30 [place] [address] 64535- 4453 January, Low back pain, unspecified back pain laterality, with sciatica presence unspecified M54.5 [place] [id number] [place] [address] 94497- 0360 January, [place] [id number] [place] [address] 58938- 6675 Dec, Low back pain, unspecified back pain laterality, with sciatica presence unspecified M54.5 [place] [id number] [place] [address] 25898- 8942 Nov, Low back pain, unspecified back pain laterality, with sciatica presence unspecified M54.5 [place] [id number] [place] [address] 98494- 7107 Nov, [place] [address] 64712- 5073 Nov, Low back pain, unspecified back pain laterality, with sciatica presence unspecified M54.5 ; Other chronic pain G89.29 ; Rheumatoid arthritis, involving unspecified site, unspecified rheumatoid factor presence M06.9 and Dysthymia F34.1 [place] [address] 21478- 1948 Oct, Low back pain, unspecified back pain laterality, with sciatica presence unspecified M54.5 [place] [address] 02934- 0806 Sep, Low back pain, unspecified back pain laterality, with sciatica presence unspecified M54.5 [facility] [id number] [place] [address] 34926 -2149 Sep, Fever R50.9 and URI, acute J06.9 [place] [address] 90078- 0588 Aug, [place] [address] 95344- 2839 Aug, Low back pain, unspecified back pain laterality, with sciatica presence unspecified M54.5 [place] [address] 28986- 3723 Jul, Low back pain, unspecified back pain laterality, with sciatica presence unspecified M54.5 [facility] [id number] [place] [address] 15757 -3699 Jul, Nausea R11.0 ; Fever and chills R50.9 ; UTI symptoms R39.9 and Hematuria, unspecified type R31.9 [place] [id number] [place] [address] 46664- 5180 Jul, [place] [address] 56652- 4035 Jun, Low back pain, unspecified back pain laterality, with sciatica presence unspecified M54.5 [place] [address] 35994- 8604 Jun, BMI 31.0-31.9,adult Z68.31 [place] [id number] [place] [address] 04851- 4726 Jun, Neuropathy G62.9 [place] [address] 74283- 3680 Jun, Low back pain, unspecified back pain laterality, with sciatica presence unspecified M54.5 [place] [address] 68396- 2157 Jun, Encounter for immunization Z23 [place] [address] 98351- 8657 Jun, BMI 31.0-31.9,adult Z68.31 [place] [address] 34597- 1478 Jun, Low back pain, unspecified back pain laterality, with sciatica presence unspecified M54.5 [place] [id number] [place] [address] 54499- 8055 May, Low back pain, unspecified back pain laterality, with sciatica presence unspecified M54.5 ; Other chronic pain G89.29 ; Plantar fasciitis M72.2 ; Rheumatoid arthritis, involving unspecified site, unspecified rheumatoid factor presence M06.9 and History of alcohol abuse Z87.898 [place] [id number] [place] [address] 08955- 8804 May, Anxiety F41.9 and Low back pain, unspecified back pain laterality, with sciatica presence unspecified M54.5 [place] [id number] [place] [address] 58932- 3924 Apr, Anxiety F41.9 and Low back pain, unspecified back pain laterality, with sciatica presence unspecified M54.5 [place] [id number] [place] [address] 15135- 9607 Mar, Acute right-sided low back pain without sciatica M54.5 ; Rash R21 ; Right flank pain R10.9 ; Lipid screening Z13.220 ; Other chronic pain G89.29 ; 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 ; Postoperative hypothyroidism E89.0 and Breast cancer screening Z12.39 [place] [address] 36081- 8063 14 Mar, 2017 Anxiety F41.9 and Low back pain, unspecified back pain laterality, with sciatica presence unspecified M54.5 [place] [address] 61908- 5998 13 Mar, 2017 Acute right-sided low back pain without sciatica M54.5 [place] [address] 636622- 3704 07 Mar, 2017 Anxiety F41.9 [place] [address] 57896- 5052 28 Feb, 2017 Right flank pain R10.9 and Anxiety F41.9 [place] [address] 61148- 5456 16 Feb, 2017 BMI 31.0-31.9,adult Z68.31 [place] [address] 75020- 5024 16 Feb, 2017 Low back pain, unspecified back pain laterality, with sciatica presence unspecified M54.5 and Anxiety F41.9 [facility] [address] 50405 -8712 January, Abscess of toe of right foot L02.611 and Other atopic dermatitis L20.89 [place] [address] 62873- 1486 January, Low back pain, unspecified back pain laterality, with sciatica presence unspecified M54.5 and Anxiety F41.9 [place] [address] 46786- 2226 Dec, Anxiety F41.9 and Low back pain, unspecified back pain laterality, with sciatica presence unspecified M54.5 [facility] [address] 59380 -1193 Dec, Scabifranklyn B86 [facility] [address] [place] [address] [id number]- 611 Nov, Rash R21 ; Other chronic pain G89.29 ; 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 ; Postoperative hypothyroidism E89.0 ; Breast cancer screening Z12.39 and Lipid screening Z13.220 [place] [address] [place] 973728- 5534 Nov, Anxiety F41.9 and Low back pain, unspecified back pain laterality, with sciatica presence unspecified M54.5 [facility] [address] 07317- 2176 Oct, Anxiety F41.9 and Low back pain, unspecified back pain laterality, with sciatica presence unspecified M54.5 [place] [address] 00840- 9761 Sep, Anxiety F41.9 and Low back pain, unspecified back pain laterality, with sciatica presence unspecified M54.5 [facility] [address] 41150- 0829 Sep, Anxiety F41.9 [facility] [address] 14422- 4681 Sep, Gastro-esophageal reflux disease without esophagitis K21.9 [facility] [address] [id number] Sep, Dental examination Z01.20 [facility] [address] 00909- 9472 Sep, Low back pain, unspecified back pain laterality, with sciatica presence unspecified M54.5 and Postoperative hypothyroidism E89.0 [facility] [address] 08092- 9097 Aug, Anxiety F41.9 [place] [id number] [place] [address] 89113- 1039 Aug, [facility] [address] 33918- 0944 Aug, Low back pain, unspecified back pain laterality, with sciatica presence unspecified M54.5 ; Other chronic pain G89.29 ; Thyroid cancer C73 and Postoperative hypothyroidism E89.0 [place] [address] 87368- 3000 Jul, [place] [address] 02886- 3944 Jul, Anxiety F41.9 [place] [address] 65330- 4440 Jul, [place] [address] 89483- 5765 Jul, BMI 29.0-29.9,adult Z68.29 [place] [address] 72270- 2069 Jul, [place] [address] 41985- 1294 Jul, BMI 30.0-30.9,adult Z68.30 [place] [address] 03457- 7378 Jul, Low back pain, unspecified back pain laterality, with sciatica presence unspecified M54.5 and Anxiety F41.9 [place] [id number] [place] [address] 00722- 0540 Jun, 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 [place] [address] 41559- 1840 Jun, BMI 30.0-30.9,adult Z68.30 [place] [address] 07922- 3136 Jun, [place] [address] 26889- 7433 10 Jun, 2016 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 ; Dysthymia F34.1 ; Encounter for immunization Z23 and Other chronic pain G89.29 [place] [address] 97204- 6792 06 Jun, 2016 Low back pain, unspecified back pain laterality, with sciatica presence unspecified M54.5 [place] [address] 73420- 1738 Jun, BMI 30.0-30.9,adult Z68.30 [place] [address] 25242- 3834 Jun, Anxiety F41.9 [place] [address] 37887- 2442 May, 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 [place] [address] 72612- 7612 12 May, 2016 Constipation, unspecified constipation type K59.00 [place] [address] 02165- 2872 08 May, 2016 Low back pain, unspecified back pain laterality, with sciatica presence unspecified M54.5 [place] [address] 07328- 1874 08 May, 2016 [place] [address] 28125- 3106 07 May, 2016 Constipation, unspecified constipation type K59.00 [place] [address] 96511- 9483 06 May, 2016 Anxiety F41.9 [place] [address] 31615- 8154 Apr, BMI 31.0-31.9,adult Z68.31 [place] [address] [place] 973722- 2546 Apr, Thyroid goiter E04.9 [facility] [id number] [place] [address] 34020- 7618 Apr, [facility] [id number] [place] [address] 60595- 7363 Apr, Low back pain, unspecified back pain laterality, with sciatica presence unspecified M54.5 [place] [id number] [place] [address] 65302- 6447 Apr, [place] [id number] [place] [address] 28119- 4349 Apr, Constipation, unspecified constipation type K59.00 ; Thyroid nodule E04.1 ; Family history of colon cancer Z80.0 and 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 [place] [id number] [place] [address] 41411- 4875 Apr, Anxiety F41.9 [place] [id number] [place] [address] 75571- 4018 Mar, [place] [id number] [place] [address] 93768- 2932 Mar, Low back pain, unspecified back pain laterality, with sciatica presence unspecified M54.5 [place] [id number] [place] [address] 28447- 8036 Mar, BMI 32.0-32.9,adult Z68.32 [place] [id number] [place] [address] 25914- 1114 Feb, Anxiety F41.9 [place] [id number] [place] [address] 45449- 3467 Feb, Depression, unspecified depression type F32.9 [place] [id number] [place] [address] 42408- 5970 Feb, BMI 32.0-32.9,adult Z68.32 [place] [address] [place] [address] 27788- 5163 16 Feb, 2016 Low back pain, unspecified back pain laterality, with sciatica presence unspecified M54.5 [place] [id number] [place] [address] 43143- 9940 14 Feb, 2016 [place] [id number] [place] [address] 33818- 2341 03 Feb, 2016 BMI 32.0-32.9,adult Z68.32 [place] [id number] [place] [address] 94073- 8929 Feb, Anxiety F41.9 [place] [id number] [place] [address] 18828- 2044 January, BMI 32.0-32.9,adult Z68.32 [place] [id number] [place] [address] 56170- 7398 January, Low back pain, unspecified back pain laterality, with sciatica presence unspecified M54.5 ; Other chronic pain G89.29 ; Weight gain R63.5 and Rheumatoid arthritis, involving unspecified site, unspecified rheumatoid factor presence M06.9 [place] [id number] [place] [address] 35551- 4089 January, Low back pain, unspecified back pain laterality, with sciatica presence unspecified M54.5 [place] [address] [place] [address] 23009- 7788 January, BMI 32.0-32.9,adult Z68.32 [place] [address] [place] [address] 02225- 2187 January, BMI 32.0-32.9,adult Z68.32 [place] [id number] [place] [address] 71975- 4255 January, BMI 32.0-32.9,adult Z68.32 [place] [id number] [place] [address] 74306- 8017 Dec, Insomnia G47.00 and Dysthymia F34.1 [facility] [id number] [place] [address] 83198- 6376 Dec, [facility] [id number] [place] [address] 20339- 1353 Dec, Other chronic pain G89.29 ; Neuropathy G62.9 and Dysthymia F34.1 [facility] [id number] [place] [address] 84872- 8706 Dec, [facility] [id number] [place] [address] 73590- 7012 Nov, [facility] [id number] [place] [address] 03796- 5663 Nov, [facility] [id number] [place] [address] 72353- 4793 Nov, [facility] [id number] [place] [address] 70041- 0304 Oct, [facility] [id number] [place] [address] 55946- 6226 Oct, [facility] [id number] [place] [address] 74673- 7789 Oct, Family history of diabetes mellitus Z83.3 [facility] [id number] [place] [address] 35673- 1495 Oct, [facility] [id number] [place] [address] 37944- 1456 Sep, [facility] [id number] [place] [address] 75205- 8231 Sep, Eye pain, right H57.11 and Other chronic pain G89.29 [facility] [id number] [place] [address] 44567- 3241 Sep, [facility] [id number] [address]- 0091 Sep, [place] [id number] [place] [address] 46921- 4148 Sep, 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 ; Neuropathy G62.9 ; Low back pain, unspecified back pain laterality, with sciatica presence unspecified M54.5 ; Gastro-esophageal reflux disease without esophagitis K21.9 and Encounter for long-term (current) use of other medications V58.69 [place] [id number] [address]- 8263 Sep, [place] [id number] [place] [address] 54875- 0577 Sep, [place] [id number] [place] [address] 45416- 3745 Sep, [place] [id number] [place] [address] 46223- 3230 Sep, [place] [id number] [place] [address] 13283- 5502 Aug, [place] [id number] [place] [address] 25120- 8621 Aug, Family history of diabetes mellitus Z83.3 [place] [address] [address]- 7246 Aug, [place] [address] [address]- 9570 Aug, [place] [address] [place] [address] 26366- 0294 16 Aug, 2015 Family history of diabetes mellitus Z83.3 [place] [id number] [place] [address] 15919- 7833 14 Aug, 2015 Weight gain R63.5 ; Edema, unspecified R60.9 ; Family history of diabetes mellitus Z83.3 and Gastroesophageal reflux disease with esophagitis K21.0 [place] [id number] [address]- 0917 14 Aug, 2015 [facility] [address] [place] [address] 14870- 5506 Aug, [facility] [address] 4908 Jul, [facility] [id number] [place] [address] 387254- 0512 Jul, [facility] [id number] [place] [address] 81122- 5516 Jul, [facility] [id number] [place] [address] 433620- 5093 Jun, [facility] [id number] [place] [address] 14241- 0086 Jun, Nose pain J34.89 ; Encounter for immunization Z23 ; Screening for breast cancer Z12.39 and Encounter for long-term (current) use of other medications V58.69 [facility] [address] [address]- 6516 Jun, [facility] [id number] [place] [address] 49664- 7022 23 May, 2015 [facility] [address] [address]- 7963 18 May, 2015 [facility] [address] [address]- 4058 17 May, 2015 [facility] [address] [address]- 2548 17 May, 2015 [facility] [address] [place] [address] 78302- 2327 10 May, 2015 [facility] [address] [address]- 254 02 May, 2015 [facility] [id number] [place] [address] 71083- 1600 May, [facility] [address] [address]- 2198 Apr, [facility] [id number] [place] [address] 91766- 8753 Apr, [facility] [id number] [place] [address] 35567- 9433 Apr, [facility] [id number] [place] [address] 55189- 7988 Mar, [facility] [id number] [place] [address] 08077- 3768 Mar, [facility] [id number] [place] [address] 72387- 6900 Mar, Lesion of left shoulder 709.9 [facility] [id number] [place] [address] 77584- 3752 Mar, [facility] [id number] [address]- 3023 Mar, [facility] [id number] [place] [address] 39254- 0126 Mar, [facility] [address] [address]- 6016 Feb, [facility] [id number] [place] [address] 49838- 9736 Feb, [facility] [address] [address]- 8336 Feb, Unspecified backache 724.5 ; Weight gain 783.1 ; Hypothyroid 244.9 ; Edema 782.3 and Diaphoresis 780.8 [facility] [address] [address]- 1932 Feb, [facility] [address] [address]- 2336 Feb, [facility] [place] [facility] [address] [id number] [place] [address]- 6978 09 Feb, 2015 [facility] [place] [facility] [address] [id number] [place] [address]- 0895 Feb, [facility] [place] [facility] [address] [id number] [place] [address]- 8083 Feb, [facility] [place] [facility] [address] [id number] [place] [address]- 5393 January, [facility] [place] [facility] [address] [id number] [place] [address]- 9744 January, [facility] [place] [facility] [address] [id number] [place] [address]- 8810 14 Dec, 2014 [facility] [place] [facility] [address] [id number] [place] [address]- 7575 Dec, [facility] [place] [facility] [address] [id number] [place] [address]- 0436 16 Nov, 2014 [facility] [place] [facility] [address] [id number] [place] [address]- 8303 16 Nov, 2014 [facility] [place] [facility] [address] [id number] [place] [address]- 7579 16 Nov, 2014 [facility] [place] [facility] [address] [id number] [place] [address]- 4888 16 Nov, 2014 [facility] [place] [facility] [address] [id number] [place] [address]- 4316 16 Nov, 2014 [facility] [place] [facility] [address] [id number] [place] [address]- 8113 16 Nov, 2014 [facility] [place] [facility] [address] [id number] [place] [address]- 9407 12 Nov, 2014 [facility] [place] [facility] [address] [id number] [place] [address]- 7792 12 Nov, 2014 [facility] [place] [facility] [address] [id number] [place] [address]- 8486 Nov, [facility] [place] [facility] [address] [id number] [place] [address]- 7045 Nov, [facility] [place] [facility] [address] [id number] [place] [address] Nov, [facility] [place] [facility] [address] [facility] [id number] [place] [address] Nov, [facility] [place] [facility] [address] [id number] [place] [address] Nov, [facility] [place] [facility] [address] [id number] [place] [address] Oct, [facility] [place] [facility] [address] [id number] [place] [address] Oct, [facility] [place] [facility] [address] [id number] [place] [address] Sep, [facility] [place] [facility] [address] [id number] [place] [address] Sep, [facility] [place] [facility] [address] [id number] [place] [address] Aug, [facility] [place] [facility] [address] [id number] [place] [address] Aug, [facility] [place] [facility] [address] [id number] [place] [address] Aug, [facility] [place] [facility] [address] [id number] [place] [address] Aug, [facility] [place] [facility] [address] [id number] [place] [address] Aug, [facility] [place] [facility] [address] [id number] [place] [address] Aug, [facility] [place] [facility] [address] [id number] [place] [address] Aug, [facility] [place] [facility] [address] [id number] [place] [address] Aug, [facility] [place] [facility] [address] [id number] [place] [address] Aug, [facility] [place] [facility] [address] [id number] [place] [address] Jul, [facility] [place] [facility] [address] [id number] [place] [address] Jul, [facility] [place] [facility] [address] [id number] [place] [address] Jul, [facility] [place] [facility] [address] [id number] [place] [address] Jul, [facility] [place] [facility] [address] [id number] [place] [address] Jul, [facility] [place] [facility] [address] [id number] [place] [address]- 0726 Jul, [facility] [place] [facility] [address] [id number] [place] [address] Jul, [facility] [place] [facility] [address] [id number] [place] [address] 58[address] Jul, [facility] [place] [facility] [address] [facility] [id number] [place] [address] 8765 Jul, [facility] [place] [facility] [address] [id number] [place] [address] 1615 Jul, [facility] [place] [facility] [address] [id number] [place] [address] 8038 Jun, [facility] [place] [facility] [address] [id number] [place] [address] 6693 Jun, [facility] [place] [facility] [address] [id number] [place] [address]- 0[address] Jun, [facility] [place] [facility] [address] [id number] [place] [address] 4874 Jun, [facility] [place] [facility] [address] [id number] [place] [address] 7157 Jun, [facility] [place] [facility] [address] [id number] [place] [address]- 1143 Jun, [facility] [place] [facility] [address] [id number] [place] [address] 9[address] 30 May, 2013 [facility] [place] [facility] [address] [id number] [place] [address]- 4[address] 30 May, 2013 [facility] [place] [facility] [address] [id number] [place] [address]- 8688 29 May, 2013 [facility] [place] [facility] [address] [id number] [place] [address]- 2548 29 May, 2013 [facility] [place] [facility] [address] [id number] [place] [address]- 7961 24 May, 2013 [facility] [place] [facility] [address] [id number] [place] [address]- 9932 24 May, 2013 [facility] [place] [facility] [address] [id number] [place] [address]- 0814 May, [facility] [place] [facility] [address] [id number] [place] [address]- 2576 May, 2013 [facility] [place] [facility] [address] [id number] [address] 9[address] May, 2013 [facility] [place] [facility] [address] [id number] [place] [address]- [address] 05 May, 2013 [facility] [place] [facility] [address] [id number] [place] [address]- 3509 May, 2013 [facility] [place] [facility] [address] [id number] [place] [address]- 4701 May, 2013 [facility] [place] [facility] [address] [id number] [address] 75[address] Apr, [facility] [place] [facility] [address] [id number] [place] [address]- 1676 Apr, [facility] [place] [facility] [address] [id number] [place] [address]- 6746 Apr, [facility] [place] [facility] [address] [id number] [place] [address]- 2992 Apr, [facility] [place] [facility] [address] [id number] [place] [address]- 3476 Apr, [facility] [place] [facility] [address] [id number] [place] [address]- 4479 Apr, [facility] [place] [facility] [address] [id number] [place] [address]- 4664 Apr, [facility] [place] [facility] [address] [id number] [place] [address]- 6257 Apr, [facility] [place] [facility] [address] [id number] [place] [address]- 6779 Apr, [facility] [place] [facility] [address] [id number] [place] [address]- 4638 Apr, [facility] [place] [facility] [address] [id number] [place] [address]- 5665 Apr, [facility] [place] [facility] [address] [id number] [place] [address]- 0326 Apr, [facility] [place] [facility] [address] [id number] [place] [address]- 6084 Apr, [facility] [place] [facility] [address] [id number] [place] [address]- 4089 Apr, [facility] [place] [facility] [address] [id number] [place] [address]- 5840 Apr, [facility] [place] [facility] [address] [id number] [place] [address]- 6968 Apr, [facility] [place] [facility] [address] [id number] [place] [address]- 2382 Apr, [facility] [place] [facility] [address] [id number] [place] [address]- 9162 Apr, [facility] [place] [facility] [address] [id number] [place] [address]- 0950 Apr, [facility] [place] [facility] [address] [id number] [place] [address] Apr, [facility] [place] [facility] [address] [id number] [place] [address]- 5926 Apr, [facility] [place] [facility] [address] [id number] [place] [address]- 5953 Apr, [facility] [place] [facility] [address] [id number] [place] [address]- 4241 Apr, [facility] [place] [facility] [address] [id number] [place] [address]- 4470 Mar, [facility] [place] [facility] [address] [id number] [place] [address]- 9815 Mar, [facility] [place] [facility] [address] [id number] [place] [address]- 1423 Mar, [facility] [place] [facility] [address] [id number] [place] [address]- 2291 Mar, [facility] [place] [facility] [address] [id number] [place] [address]- 6845 Mar, [facility] [place] [facility] [address] [id number] [place] [address]- 4520 Mar, [facility] [place] [facility] [address] [id number] [place] [address]- 9538 Mar, [facility] [place] [facility] [address] [id number] [place] [address]- 8840 Mar, [facility] [place] [facility] [address] [id number] [place] [address]- 9286 Mar, [facility] [place] [facility] [address] [id number] [place] [address]- 6027 Mar, [facility] [place] [facility] [address] [id number] [place] [address]- 4174 Mar, [facility] [place] [facility] [address] [id number] [place] [address]- 0805 Mar, [facility] [place] [facility] [address] [id number] [place] [address]- 9619 Mar, [facility] [place] [facility] [address] [id number] [place] [address]- 5879 Mar, [facility] [place]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
--- OUTSIDE RECORDS SUMMARY | 2018-06-07 11:39 | XMS REPORT ---
Author Author ELISEO BENDER [facility] Address [address] [place] [address] Care Team Providers Care Visitor Services Assistant Name Role Phone ELISEO BENDER Unavailable PROBLEMS Type Condition ICD9-CM Code OEU64-IJ Code Onset Dates Condition Status SNOMED Code Problem Chest pain, unspecified type R07.9 Active 47178535 Problem Depression, unspecified depression type F32.9 Active 33503049 Problem Anxiety F41.9 Active 65062207 Problem BMI 30.0-30.9,adult Z68.30 Active 237744706 Problem Moderate episode of recurrent major depressive disorder F33.1 Active 875750028 Problem Thyroid cancer C73 Active 657369244 Problem Postoperative hypothyroidism E89.0 Active 72541688 Problem BMI 31.0-31.9,adult Z68.31 Active 655803166 Problem Other atopic dermatitis L20.89 Active 16231043 Problem Low back pain, unspecified back pain laterality, with sciatica presence unspecified M54.5 Active 826743331 Problem Neuropathy G62.9 Active 218887073 Problem Other chronic pain G89.29 Active 88181102 Problem Dysthymia F34.1 Active 75040708 Problem 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 Active 99409806 Problem Insomnia G47.00 Active 260741627 Problem Gastro-esophageal reflux disease without esophagitis K21.9 Active 695038288 Problem Rheumatoid arthritis, involving unspecified site, unspecified rheumatoid factor presence M06.9 Active 44928379 ALLERGIES No Information ENCOUNTERS Encounter Location Date Diagnosis [facility] [place] [address] [facility] [id number] [address] Mar, Breast cancer screening Z12.39 and Discharge from nipple N64.52 [facility] [place] [address] [facility] [id number], [place] [address] Mar, Low back pain, unspecified back pain laterality, with sciatica presence unspecified M54.5 [place] [id number] [place] [address] 41271- 5148 Mar, Low back pain, unspecified back pain laterality, with sciatica presence unspecified M54.5 ; Rheumatoid arthritis, involving unspecified site, unspecified rheumatoid factor presence M06.9 ; Breast cancer screening Z12.39 and Moderate episode of recurrent major depressive disorder F33.1 [place] [id number] [place] [address] 29137- 9662 Feb, Low back pain, unspecified back pain laterality, with sciatica presence unspecified M54.5 [place] [address] 29951- 7868 January, BMI 30.0-30.9,adult Z68.30 [place] [id number] [place] [address] 36101- 9212 January, Low back pain, unspecified back pain laterality, with sciatica presence unspecified M54.5 [place] [id number] [place] [address] 34974- 9332 January, [place] [id number] [place] [address] 39455- 4359 Dec, Low back pain, unspecified back pain laterality, with sciatica presence unspecified M54.5 [place] [id number] [place] [address] 12684- 3242 Nov, Low back pain, unspecified back pain laterality, with sciatica presence unspecified M54.5 [place] [id number] [place] [address] 38218- 9242 Nov, [place] [id number] [place] [address] 47594- 2903 Nov, Low back pain, unspecified back pain laterality, with sciatica presence unspecified M54.5 ; Other chronic pain G89.29 ; Rheumatoid arthritis, involving unspecified site, unspecified rheumatoid factor presence M06.9 and Dysthymia F34.1 [place] [id number] [place] [address] 40697- 5369 Oct, Low back pain, unspecified back pain laterality, with sciatica presence unspecified M54.5 [place] [id number] [place] [address] 93394- 8754 Sep, Low back pain, unspecified back pain laterality, with sciatica presence unspecified M54.5 [facility] [address] 61520 -0822 Sep, Fever R50.9 and URI, acute J06.9 [place] [address] 19302- 7345 Aug, [place] [address] 74148- 6535 Aug, Low back pain, unspecified back pain laterality, with sciatica presence unspecified M54.5 [place] [address] 02066- 2174 Jul, Low back pain, unspecified back pain laterality, with sciatica presence unspecified M54.5 [facility] [id number] [place] [address] 39646 -8327 Jul, Nausea R11.0 ; Fever and chills R50.9 ; UTI symptoms R39.9 and Hematuria, unspecified type R31.9 [place] [id number] [place] [address] 14497- 2601 Jul, [place] [address] 72837- 1144 Jun, Low back pain, unspecified back pain laterality, with sciatica presence unspecified M54.5 [place] [id number] [place] [address] 44519- 9813 Jun, BMI 31.0-31.9,adult Z68.31 [place] [address] 13958- 6647 Jun, Neuropathy G62.9 [place] [address] 77293- 8321 Jun, Low back pain, unspecified back pain laterality, with sciatica presence unspecified M54.5 [place] [address] 53574- 1940 Jun, Encounter for immunization Z23 [place] [address] 57047- 1020 Jun, BMI 31.0-31.9,adult Z68.31 [place] [address] 77029- 9524 Jun, Low back pain, unspecified back pain laterality, with sciatica presence unspecified M54.5 [place] [address] 54516- 8899 May, Low back pain, unspecified back pain laterality, with sciatica presence unspecified M54.5 ; Other chronic pain G89.29 ; Plantar fasciitis M72.2 ; Rheumatoid arthritis, involving unspecified site, unspecified rheumatoid factor presence M06.9 and History of alcohol abuse Z87.898 [place] [address] 32187- 5660 May, Anxiety F41.9 and Low back pain, unspecified back pain laterality, with sciatica presence unspecified M54.5 [place] [address] 26675- 5276 Apr, Anxiety F41.9 and Low back pain, unspecified back pain laterality, with sciatica presence unspecified M54.5 [place] [address] 68769- 7706 Mar, Acute right-sided low back pain without sciatica M54.5 ; Rash R21 ; Right flank pain R10.9 ; Lipid screening Z13.220 ; Other chronic pain G89.29 ; 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 ; Postoperative hypothyroidism E89.0 and Breast cancer screening Z12.39 [place] [id number] [place] [address] 31230- 2482 14 Mar, 2017 Anxiety F41.9 and Low back pain, unspecified back pain laterality, with sciatica presence unspecified M54.5 [place] [address] 96853- 7910 13 Mar, 2017 Acute right-sided low back pain without sciatica M54.5 [place] [address] 46506- 7859 07 Mar, 2017 Anxiety F41.9 [place] [address] 62548- 8614 28 Feb, 2017 Right flank pain R10.9 and Anxiety F41.9 [place] [address] 59914- 7652 16 Feb, 2017 BMI 31.0-31.9,adult Z68.31 [place] [address] 06165- 5534 16 Feb, 2017 Low back pain, unspecified back pain laterality, with sciatica presence unspecified M54.5 and Anxiety F41.9 [facility] [place] [id number] [place] [address] 06015 -0896 January, Abscess of toe of right foot L02.611 and Other atopic dermatitis L20.89 [place] [id number] [place] [address] 45197- 6422 January, Low back pain, unspecified back pain laterality, with sciatica presence unspecified M54.5 and Anxiety F41.9 [place] [address] 03636- 8481 Dec, Anxiety F41.9 and Low back pain, unspecified back pain laterality, with sciatica presence unspecified M54.5 [facility] [id number] [place] [address] 77055 -9984 Dec, Scabies [address] [place] [address] 46920- 6447 Nov, Rash R21 ; Other chronic pain G89.29 ; 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 ; Postoperative hypothyroidism E89.0 ; Breast cancer screening Z12.39 and Lipid screening Z13.220 [place] [address] 27250- 3558 Nov, Anxiety F41.9 and Low back pain, unspecified back pain laterality, with sciatica presence unspecified M54.5 [place] [address] 47730- 7787 Oct, Anxiety F41.9 and Low back pain, unspecified back pain laterality, with sciatica presence unspecified M54.5 [place] [address] 25749- 2192 Sep, Anxiety F41.9 and Low back pain, unspecified back pain laterality, with sciatica presence unspecified M54.5 [place] [address] 83616- 8495 Sep, Anxiety F41.9 [place] [address] 90808- 2460 Sep, Gastro-esophageal reflux disease without esophagitis K21.9 [facility] [address] [id number] Sep, Dental examination Z01.20 [place] [address] 79263- 7832 Sep, Low back pain, unspecified back pain laterality, with sciatica presence unspecified M54.5 and Postoperative hypothyroidism E89.0 [place] [address] 23260- 0548 Aug, Anxiety F41.9 [place] [address] 18745- 9888 Aug, [place] [id number] [place] [address] 15789- 5960 Aug, Low back pain, unspecified back pain laterality, with sciatica presence unspecified M54.5 ; Other chronic pain G89.29 ; Thyroid cancer C73 and Postoperative hypothyroidism E89.0 [place] [id number] [place] [address] 21526- 4337 Jul, [place] [address] 41859- 7095 Jul, Anxiety F41.9 [place] [address] 42757- 2937 Jul, [place] [address] 80001- 7303 Jul, BMI 29.0-29.9,adult Z68.29 [place] [address] 77470- 3723 Jul, [place] [address] 26047- 9294 Jul, BMI 30.0-30.9,adult Z68.30 [place] [id number] [place] [address] 22718- 9133 Jul, Low back pain, unspecified back pain laterality, with sciatica presence unspecified M54.5 and Anxiety F41.9 [place] [id number] [place] [address] 08909- 3392 Jun, 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 [place] [id number] [place] [address] 15510- 5123 Jun, BMI 30.0-30.9,adult Z68.30 [place] [id number] [place] [address] 56538- 1363 14 Jun, 2016 [place] [address] 69839- 4954 Jun, 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 ; Dysthymia F34.1 ; Encounter for immunization Z23 and Other chronic pain G89.29 [place] [address] 02201- 8674 06 Jun, 2016 Low back pain, unspecified back pain laterality, with sciatica presence unspecified M54.5 [place] [address] 67587- 8732 Jun, BMI 30.0-30.9,adult Z68.30 [place] [address] 42198- 8559 Jun, Anxiety F41.9 [place] [address] 24522- 7483 May, 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 [place] [address] 62610- 8765 May, Constipation, unspecified constipation type K59.00 [place] [address] 47261- 5474 08 May, 2016 Low back pain, unspecified back pain laterality, with sciatica presence unspecified M54.5 [place] [address] 78227- 6691 08 May, 2016 [place] [address] 84534- 2248 May, Constipation, unspecified constipation type K59.00 [place] [address] 57597- 4459 May, Anxiety F41.9 [place] [address] 31026- 2735 Apr, BMI 31.0-31.9,adult Z68.31 [place] [address] 51944- 5320 Apr, Thyroid goiter E04.9 [place] [address] [place] [address] [place] [address] 0430 Apr, [facility] [place] [id number] [place] [address] 23098- 3496 Apr, Low back pain, unspecified back pain laterality, with sciatica presence unspecified M54.5 [facility] [place] [id number] [place] [address] 11701- 1095 Apr, [facility] [place] [address] 31219- 1203 Apr, Constipation, unspecified constipation type K59.00 ; Thyroid nodule E04.1 ; Family history of colon cancer Z80.0 and 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 [place] [id number] [place] [address] 29372- 9794 Apr, Anxiety F41.9 [place] [id number] [place] [address] 31050- 0146 Mar, [place] [address] 87564- 7890 Mar, Low back pain, unspecified back pain laterality, with sciatica presence unspecified M54.5 [place] [id number] [place] [address] 66874- 5967 Mar, BMI 32.0-32.9,adult Z68.32 [place] [id number] [place] [address] 11131- 6092 Feb, Anxiety F41.9 [place] [id number] [place] [address] 17418- 2130 Feb, Depression, unspecified depression type F32.9 [place] [id number] [place] [address] 66582- 5731 Feb, BMI 32.0-32.9,adult Z68.32 [facility] [place] [id number] [place] [address] 60382- 7003 Feb, Low back pain, unspecified back pain laterality, with sciatica presence unspecified M54.5 [place] [id number] [place] [address] 30333- 9987 14 Feb, 2016 [place] [id number] [place] [address] 25174- 2981 03 Feb, 2016 BMI 32.0-32.9,adult Z68.32 [place] [id number] [place] [address] 49921- 7828 Feb, Anxiety F41.9 [place] [id number] [place] [address] 75844- 4756 January, BMI 32.0-32.9,adult Z68.32 [place] [id number] [place] [address] 02003- 6400 January, Low back pain, unspecified back pain laterality, with sciatica presence unspecified M54.5 ; Other chronic pain G89.29 ; Weight gain R63.5 and Rheumatoid arthritis, involving unspecified site, unspecified rheumatoid factor presence M06.9 [place] [id number] [place] [address] 94431- 6941 January, Low back pain, unspecified back pain laterality, with sciatica presence unspecified M54.5 [place] [id number] [place] [address] 58941- 4001 January, BMI 32.0-32.9,adult Z68.32 [place] [address] [id number] [place] [address] 97880- 3360 January, BMI 32.0-32.9,adult Z68.32 [place] [id number] [place] [address] 95120- 8333 05 Jan, 2016 BMI 32.0-32.9,adult Z68.32 [place] [id number] [place] [address] 78389- 7580 Dec, Insomnia G47.00 and Dysthymia F34.1 [place] [address] [id number] [address] Dec, [facility] [place] [id number] [place] [address] 66660- 4295 Dec, Other chronic pain G89.29 ; Neuropathy G62.9 and Dysthymia F34.1 [facility] [place] [id number] [place] [address] 45756- 2106 Dec, [facility] [place] [id number] [place] [address] 71352- 6204 Nov, [facility] [place] [id number] [place] [address] 77593- 5896 Nov, [facility] [place] [id number] [place] [address] 22567- 6601 Nov, [facility] [place] [id number] [place] [address] 31193- 5225 Oct, [facility] [place] [id number] [place] [address] 93725- 1715 Oct, [facility] [place] [id number] [place] [address] 58170- 1340 Oct, Family history of diabetes mellitus Z83.3 [facility] [place] [address] [address] 2753 Oct, [facility] [place] [id number] [place] [address] 54261- 0461 Sep, [facility] [place] [id number] [place] [address] 68792- 7486 Sep, Eye pain, right H57.11 and Other chronic pain G89.29 [facility] [place] [id number] [place] [address] 74690- 7946 Sep, [facility] [place] [address] [address]- 5965 Sep, [facility] [place] [id number] [place] [address] 76789- 0623 Sep, 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 ; Neuropathy G62.9 ; Low back pain, unspecified back pain laterality, with sciatica presence unspecified M54.5 ; Gastro-esophageal reflux disease without esophagitis K21.9 and Encounter for long-term (current) use of other medications V58.69 [place] [id number] [place] [address] 04973- 3976 Sep, [place] [address] [id number] [place] [address] 10226- 8672 Sep, [place] [id number] [place] [address] 28486- 6263 Sep, [place] [id number] [place] [address] 11042- 0658 Sep, [place] [id number] [place] [address] 36836- 4133 Aug, [place] [id number] [place] [address] 59601- 4155 Aug, Family history of diabetes mellitus Z83.3 [place] [id number] [place] [address] 19387- 6147 Aug, [place] [id number] [place] [address] 25536- 0312 Aug, [place] [id number] [place] [address] 83958- 0614 16 Aug, 2015 Family history of diabetes mellitus Z83.3 [place] [id number] [place] [address] 87418- 9434 14 Aug, 2015 Weight gain R63.5 ; Edema, unspecified R60.9 ; Family history of diabetes mellitus Z83.3 and Gastroesophageal reflux disease with esophagitis K21.0 [place] [id number] [place] [address] 78453- 7253 Aug, [place] [id number] [address]- 8802 Aug, [facility] [place] [id number] [place] [address] 04268- 9636 Jul, [facility] [place] [id number] [place] [address] 48115- 8519 Jul, [facility] [place] [id number] [place] [address] 45655- 5656 Jul, [facility] [place] [id number] [place] [address] 36126- 9026 Jun, [facility] [place] [id number] [place] [address] 26154- 5905 Jun, Nose pain J34.89 ; Encounter for immunization Z23 ; Screening for breast cancer Z12.39 and Encounter for long-term (current) use of other medications V58.69 [facility] [place] [id number] [place] [address] 42001- 0758 Jun, [facility] [place] [id number] [place] [address] 78917- 5043 23 May, 2015 [facility] [place] [id number] [place] [address] 31376- 7065 18 May, 2015 [facility] [place] [id number] [place] [address] 57676- 7869 17 May, 2015 [facility] [place] [id number] [place] [address] 97005- 8038 17 May, 2015 [facility] [place] [id number] [place] [address] 21075- 2544 10 May, 2015 [facility] [place] [id number] [place] [address] 01869- 2548 02 May, 2015 [facility] [place] [id number] [place] [address] 06865- 2544 02 May, 2015 [facility] [place] [id number] [place] [address] 44116- 7961 Apr, [facility] [place] [address] [address]- 2479 Apr, [facility] [place] [address] [address]- 5149 Apr, [facility] [place] [id number] [address]- 0685 Mar, [facility] [place] [id number] [place] [address] 51331- 6824 Mar, [facility] [place] [id number] [place] [address] 22606- 8581 Mar, Lesion of left shoulder 709.9 [facility], [place], [facility] [id number] [place] [address]- [address]92 Mar, [facility] [place], [facility] [id number] [place] [id number]- 4215 Mar, [facility] [place], [facility] [id number] [address] Mar, [facility] [place], [facility] [id number] [address] Feb, [facility] [place], [facility] [id number] [address] Feb, [facility] [place], [facility] [id number] [address] Feb, Unspecified backache 724.5 ; Weight gain 783.1 ; Hypothyroid 244.9 ; Edema 782.3 and Diaphoresis 780.8 [facility] [place], [facility] [id number] [address] Feb, [facility] [place], [facility] [id number] [address] Feb, [facility] [place], [facility] [id number] [address] Feb, [facility] [place] [facility] [address] [id number] [place] [address] Feb, [facility] [place] [facility] [address] [id number] [place] [address] Feb, [facility] [place] [facility] [address] [id number] [place] [address] January, [facility] [place] [facility] [address] [id number] [place] [address] January, [facility] [place] [facility] [address] [id number] [place] [address] Dec, [facility] [place] [facility] [address] [id number] [place] [address] Dec, [facility] [place] [facility] [address] [id number] [place] [address] 16 Nov, 2014 [facility] [place] [facility] [address] [address] [id number] [place] [address] 16 Nov, 2014 [facility] [place] [facility] [address] [id number] [place] [address]247 16 Nov, 2014 [facility] [place] [facility] [address] [id number] [place] [address] 4112 16 Nov, 2014 [facility] [place] [facility] [address] [id number] [place] [address] 4525 16 Nov, 2014 [facility] [place] [facility] [address] [id number] [place] [address] 1590 16 Nov, 2014 [facility] [place] [facility] [address] [id number] [place] [address] 7218 12 Nov, 2014 [facility] [place] [facility] [address] [id number] [place] [address] 0179 12 Nov, 2014 [facility] [place] [facility] [address] [id number] [place] [address] 7790 11 Nov, 2014 [facility] [place] [facility] [address] [id number] [place] [address]- 1618 Nov, [facility] [place] [facility] [address] [id number] [place] [address] 5164 Nov, [facility] [place] [facility] [address] [id number] [place] [address]- 6774 Nov, [facility] [place] [facility] [address] [id number] [place] Nov, [facility] [place] [facility] [address] [id number] [place] [address]- 1591 Oct, [facility] [place] [facility] [address] [id number] [place] [address]- 1187 Oct, [facility] [place] [facility] [address] [id number] [place] [address]- 7461 Sep, [facility] [place] [facility] [address] [id number] [place] [address]- 6838 Sep, [facility] [place] [facility] [address] [id number] [place] [address]- 2119 Aug, [facility] [place] [facility] [address] [id number] [place] [address]- 3240 Aug, [facility] [place] [facility] [address] [id number] [place] [address]- 6987 Aug, [facility] [place] [facility] [address] [id number] [place] [address]- 9319 Aug, [facility] [place] [facility] [address] [id number] [place] [address]- 7865 Aug, [facility] [place] [facility] [address] [id number] [place] [address]- 4109 Aug, [facility] [place] [facility] [address] [id number] [place] [address]- 4738 Aug, [facility] [place] [facility] [address] [id number] [place] [address]- 7950 Aug, [facility] [place] [facility] [address] [id number] [place] [address]- 5754 Aug, [facility] [place] [facility] [address] [id number] [place] [address]- 7378 Jul, [facility] [place] [facility] [address] [id number] [place] [address]- 6505 Jul, [facility] [place] [facility] [address] [id number] [place] [address]- 1012 Jul, [facility] [place] [facility] [address] [id number] [place] [address]- 8991 Jul, [facility] [place] [facility] [address] [id number] [place] [address]- 4678 Jul, [facility] [place] [facility] [address] [id number] [place] [address]- 2998 Jul, [facility] [place] [facility] [address] [id number] [place] [address]- 9017 Jul, [facility] [place] [facility] [address] [id number] [place] [address]- 8366 Jul, [facility] [place] [facility] [address] [id number] [place] [address]- 3070 Jul, [facility] [place] [facility] [address] [id number] [place] [address]- 6038 Jul, [facility] [place] [facility] [address] [id number] [place] [address]- 1538 Jun, [facility] [place] [facility] [address] [id number] [place] [address]- 4960 Jun, [facility] [place] [facility] [address] [id number] [place] [address]- 4218 Jun, [facility] [place] [facility] [address] [id number] [place] [address]- 0222 Jun, [facility] [place] [facility] [address] [id number] [place] [address]- 4717 Jun, [facility] [place] [facility] [address] [id number] [place] [address]- 6278 Jun, [facility] [place] [facility] [address] [id number] [place] [address]- 9412 30 May, 2013 [facility] [place] [facility] [address] [id number] [place] [address]- 6929 30 May, 2013 [facility] [place] [facility] [address] [id number] [place] [address]- 0563 29 May, 2013 [facility] [place] [facility] [address] [id number] [place] [address]- 3692 29 May, 2013 [facility] [place] [facility] [address] [id number] [place] [address]- 5458 24 May, 2013 [facility] [place] [facility] [address] [id number] [place] [address]- 8552 May, 2013 [facility] [place] [facility] [address] [id number] [place] [address]- 6790 May, 2013 [facility] [place] [facility] [address] [id number] [place] [address]- 1046 May, [facility] [place] [facility] [address] [id number] [place] [address]- 3529 May, [facility] [place] [facility] [address] [id number] [address]- 7753 May, [facility] [place] [facility] [address] [id number], [place] [address]- 7310 May, [facility] [place] [facility] [address] [id number] [place] [address]- 0017 May, [facility] [place] [facility] [address] [id number] [place] [address]- 8793 Apr, [facility] [place] [facility] [address] [id number], [place] [address]- 8303 Apr, [facility] [place] [facility] [address] [id number], [place] [address]- 9003 Apr, [facility] [place] [facility] [address] [id number] [place] [address]- 2785 Apr, [facility] [place] [facility] [address] [id number] [place] [address]- 0472 Apr, [facility] [place] [facility] [address] [id number] [place] [address]- 0263 Apr, [facility] [place] [facility] [address] [id number] [place] [address]- 5828 Apr, [facility] [place] [facility] [address] [id number] [place] [address]- 6162 Apr, [facility] [place] [facility] [address] [id number] [place] [address]- 7343 Apr, [facility] [place] [facility] [address] [id number] [place] [address]- 7510 Apr, [facility] [place] [facility] [address] [id number] [place] [address]- 7207 Apr, [facility] [place] [facility] [address] [id number] [place] [address]- 8735 Apr, [facility] [place] [facility] [address] [id number] [place] [address]- 5510 Apr, [facility] [place] [facility] [address] [id number] [place] [address]- 6966 Apr, [facility] [place] [facility] [address] [id number], [place] [address]- 5993 Apr, [facility] [place] [facility] [address] [id number] [place] [address]- 6060 Apr, [facility] [place] [facility] [address] [id number] [place] [address]- 3621 Apr, [facility] [place] [facility] [address] [id number] [place] [address]- 2829 Apr, [facility] [place] [facility] [address] [id number] [place] [address]- 9999 Apr, [facility] [place] [facility] [address] [id number] [place] [address]- 7095 Apr, [facility] [place] [facility] [address] [id number] [place] [address] Apr, [facility] [place] [facility] [address] [id number] [place] [address]- 2575 Apr, [facility] [place] [facility] [address] [id number] [place] [address]- 4389 Apr, [facility] [place] [facility] [address] [id number] [place] [address]- 3178 Mar, [facility] [place] [facility] [address] [id number] [place] [address]- 6244 Mar, [facility] [place] [facility] [address] [id number] [place] [address]- 2010 Mar, [facility] [place] [facility] [address] [id number] [place] [address]- 6216 Mar, [facility] [place] [facility] [address] [id number] [place] [address]- 5020 Mar, [facility] [place] [facility] [address] [id number] [place] [address]- 1204 Mar, [facility] [place] [facility] [address] [id number] [place] [address]- 7635 Mar, [facility] [place] [facility] [address] [id number] [place] [address]- 8303 Mar, [facility] [place] [facility] [address] [id number] [place] [address]- 5934 Mar, [facility] [place] [facility]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
[2018-06-07] MEDS: LACTATED RINGERS 1,000 ML IV PRN ×2 (11:40→14:27)
--- OUTSIDE RECORDS SUMMARY | 2018-06-07 11:40 | XMS REPORT ---
Author Author ELISEO BENDER [facility] Address [address] [place] [address] Care Team Providers Care Skate Shop Attendant Name Role Phone ELISEO BENDER Unavailable PROBLEMS Type Condition ICD9-CM Code KTW00-DE Code Onset Dates Condition Status SNOMED Code Problem Chest pain, unspecified type R07.9 Active 56199336 Problem Depression, unspecified depression type F32.9 Active 12728397 Problem Anxiety F41.9 Active 03047202 Problem BMI 30.0-30.9,adult Z68.30 Active 062244108 Problem Moderate episode of recurrent major depressive disorder F33.1 Active 907141235 Problem Thyroid cancer C73 Active 138116993 Problem Postoperative hypothyroidism E89.0 Active 94257606 Problem BMI 31.0-31.9,adult Z68.31 Active 824263754 Problem Other atopic dermatitis L20.89 Active 61910718 Problem Low back pain, unspecified back pain laterality, with sciatica presence unspecified M54.5 Active 345240472 Problem Neuropathy G62.9 Active 619038124 Problem Other chronic pain G89.29 Active 66454562 Problem Dysthymia F34.1 Active 04274779 Problem 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 Active 33486801 Problem Insomnia G47.00 Active 946247950 Problem Gastro-esophageal reflux disease without esophagitis K21.9 Active 160355816 Problem Rheumatoid arthritis, involving unspecified site, unspecified rheumatoid factor presence M06.9 Active 81213531 ALLERGIES No Information ENCOUNTERS Encounter Location Date Diagnosis [facility] [address] [facility] [id number] [address] Mar, Breast cancer screening Z12.39 and Discharge from nipple N64.52 [facility] [address] [facility] [id number] [address] Mar, Low back pain, unspecified back pain laterality, with sciatica presence unspecified M54.5 [place] [id number] [place] [address] 36562- 7478 Mar, Low back pain, unspecified back pain laterality, with sciatica presence unspecified M54.5 ; Rheumatoid arthritis, involving unspecified site, unspecified rheumatoid factor presence M06.9 ; Breast cancer screening Z12.39 and Moderate episode of recurrent major depressive disorder F33.1 [place] [id number] [place] [address] 42516- 9121 Feb, Low back pain, unspecified back pain laterality, with sciatica presence unspecified M54.5 [place] [address] 88496- 1136 January, BMI 30.0-30.9,adult Z68.30 [place] [id number] [place] [address] 51891- 1342 January, Low back pain, unspecified back pain laterality, with sciatica presence unspecified M54.5 [place] [id number] [place] [address] 81867- 2744 January, [place] [id number] [place] [address] 04637- 0983 Dec, Low back pain, unspecified back pain laterality, with sciatica presence unspecified M54.5 [place] [id number] [place] [address] 16188- 3289 Nov, Low back pain, unspecified back pain laterality, with sciatica presence unspecified M54.5 [place] [id number] [place] [address] 08409- 6464 Nov, [place] [id number] [place] [address] 72331- 8060 Nov, Low back pain, unspecified back pain laterality, with sciatica presence unspecified M54.5 ; Other chronic pain G89.29 ; Rheumatoid arthritis, involving unspecified site, unspecified rheumatoid factor presence M06.9 and Dysthymia F34.1 [place] [id number] [place] [address] 53711- 7841 Oct, Low back pain, unspecified back pain laterality, with sciatica presence unspecified M54.5 [place] [id number] [place] [address] 98003- 5277 Sep, Low back pain, unspecified back pain laterality, with sciatica presence unspecified M54.5 [facility] [address] [address]15 -[address]81 Sep, Fever R50.9 and URI, acute J06.9 [place] [address] 30009- 7092 Aug, [place] [address] 27377- 4095 Aug, Low back pain, unspecified back pain laterality, with sciatica presence unspecified M54.5 [place] [address] 38173- 8938 Jul, Low back pain, unspecified back pain laterality, with sciatica presence unspecified M54.5 [facility] [id number] [place] [address] 29727 -5621 Jul, Nausea R11.0 ; Fever and chills R50.9 ; UTI symptoms R39.9 and Hematuria, unspecified type R31.9 [place] [id number] [place] [address] 92866- 9061 Jul, [place] [address] 57712- 2805 Jun, Low back pain, unspecified back pain laterality, with sciatica presence unspecified M54.5 [place] [id number] [place] [address] 39561- 3301 Jun, BMI 31.0-31.9,adult Z68.31 [place] [address] 28439- 2158 Jun, Neuropathy G62.9 [place] [address] 64958- 0586 Jun, Low back pain, unspecified back pain laterality, with sciatica presence unspecified M54.5 [place] [address] 48340- 8039 Jun, Encounter for immunization Z23 [place] [address] 91787- 3583 Jun, BMI 31.0-31.9,adult Z68.31 [place] [address] 11778- 7818 Jun, Low back pain, unspecified back pain laterality, with sciatica presence unspecified M54.5 [place] [address] 96941- 7795 May, Low back pain, unspecified back pain laterality, with sciatica presence unspecified M54.5 ; Other chronic pain G89.29 ; Plantar fasciitis M72.2 ; Rheumatoid arthritis, involving unspecified site, unspecified rheumatoid factor presence M06.9 and History of alcohol abuse Z87.898 [place] [address] 69049- 4179 May, Anxiety F41.9 and Low back pain, unspecified back pain laterality, with sciatica presence unspecified M54.5 [place] [address] 11564- 4005 Apr, Anxiety F41.9 and Low back pain, unspecified back pain laterality, with sciatica presence unspecified M54.5 [place] [address] 22211- 5162 Mar, Acute right-sided low back pain without sciatica M54.5 ; Rash R21 ; Right flank pain R10.9 ; Lipid screening Z13.220 ; Other chronic pain G89.29 ; 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 ; Postoperative hypothyroidism E89.0 and Breast cancer screening Z12.39 [place] [id number] [place] [address] 36812- 4761 14 Mar, 2017 Anxiety F41.9 and Low back pain, unspecified back pain laterality, with sciatica presence unspecified M54.5 [place] [address] 91846- 9594 13 Mar, 2017 Acute right-sided low back pain without sciatica M54.5 [place] [address] 91783- 3070 07 Mar, 2017 Anxiety F41.9 [place] [address] 37296- 7778 28 Feb, 2017 Right flank pain R10.9 and Anxiety F41.9 [place] [address] 65105- 6285 16 Feb, 2017 BMI 31.0-31.9,adult Z68.31 [place] [address] 70387- 4703 16 Feb, 2017 Low back pain, unspecified back pain laterality, with sciatica presence unspecified M54.5 and Anxiety F41.9 [facility] [place] [id number] [place] [address] 30937 -5964 January, Abscess of toe of right foot L02.611 and Other atopic dermatitis L20.89 [place] [id number] [place] [address] 28941- 9154 January, Low back pain, unspecified back pain laterality, with sciatica presence unspecified M54.5 and Anxiety F41.9 [place] [address] 05977- 7625 Dec, Anxiety F41.9 and Low back pain, unspecified back pain laterality, with sciatica presence unspecified M54.5 [facility] [id number] [place] [address] 34996 -5333 Dec, Scabies [address] [place] [id number] 35435- 9946 Nov, Rash R21 ; Other chronic pain G89.29 ; 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 ; Postoperative hypothyroidism E89.0 ; Breast cancer screening Z12.39 and Lipid screening Z13.220 [place] [address] 49404- 7038 Nov, Anxiety F41.9 and Low back pain, unspecified back pain laterality, with sciatica presence unspecified M54.5 [place] [address] 27178- 5737 Oct, Anxiety F41.9 and Low back pain, unspecified back pain laterality, with sciatica presence unspecified M54.5 [place] [address] 37670- 5892 Sep, Anxiety F41.9 and Low back pain, unspecified back pain laterality, with sciatica presence unspecified M54.5 [place] [address] 46735- 3136 Sep, Anxiety F41.9 [place] [address] 87935- 3309 Sep, Gastro-esophageal reflux disease without esophagitis K21.9 [facility] [address] [id number] Sep, Dental examination Z01.20 [place] [address] 78695- 5463 Sep, Low back pain, unspecified back pain laterality, with sciatica presence unspecified M54.5 and Postoperative hypothyroidism E89.0 [place] [address] 44028- 7926 Aug, Anxiety F41.9 [place] [address] 48604- 7726 Aug, [place] [id number] [place] [address] 95223- 7061 Aug, Low back pain, unspecified back pain laterality, with sciatica presence unspecified M54.5 ; Other chronic pain G89.29 ; Thyroid cancer C73 and Postoperative hypothyroidism E89.0 [place] [id number] [place] [address] 28524- 5261 Jul, [place] [address] 46839- 4776 Jul, Anxiety F41.9 [place] [address] 35774- 7224 Jul, [place] [address] 18924- 8737 Jul, BMI 29.0-29.9,adult Z68.29 [place] [address] 24347- 0713 Jul, [place] [address] 57171- 9384 Jul, BMI 30.0-30.9,adult Z68.30 [place] [place] [id number] [place] [address] 34947- 3210 Jul, Low back pain, unspecified back pain laterality, with sciatica presence unspecified M54.5 and Anxiety F41.9 [facility] [place] [id number] [place] [address] 49314- 7404 Jun, 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 [place] [id number] [place] [address] 35967- 2919 Jun, BMI 30.0-30.9,adult Z68.30 [place] [id number] [place] [address] 03918- 2000 14 Jun, 2016 [place] [address] 84237- 9247 Jun, 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 ; Dysthymia F34.1 ; Encounter for immunization Z23 and Other chronic pain G89.29 [place] [address] 00032- 5196 06 Jun, 2016 Low back pain, unspecified back pain laterality, with sciatica presence unspecified M54.5 [place] [address] 62417- 8698 Jun, BMI 30.0-30.9,adult Z68.30 [place] [address] 26545- 4960 Jun, Anxiety F41.9 [place] [address] 03053- 8976 May, 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 [place] [address] 17318- 4531 May, Constipation, unspecified constipation type K59.00 [place] [address] 30130- 1183 08 May, 2016 Low back pain, unspecified back pain laterality, with sciatica presence unspecified M54.5 [place] [address] 45903- 3412 08 May, 2016 [place] [address] 18254- 5954 May, Constipation, unspecified constipation type K59.00 [place] [address] 68634- 7478 May, Anxiety F41.9 [place] [address] 21003- 7515 Apr, BMI 31.0-31.9,adult Z68.31 [place] [address] 63381- 0625 Apr, Thyroid goiter E04.9 [place] [address] [place] [address] [place] [address]- 7713 Apr, [facility] [id number] [place] [address] 49454- 4700 Apr, Low back pain, unspecified back pain laterality, with sciatica presence unspecified M54.5 [facility] [id number] [place] [address] 12999- 7394 Apr, [facility] [address] 20953- 9845 Apr, Constipation, unspecified constipation type K59.00 ; Thyroid nodule E04.1 ; Family history of colon cancer Z80.0 and 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 [place] [id number] [place] [address] 82733- 7145 Apr, Anxiety F41.9 [place] [id number] [place] [address] 07666- 8718 Mar, [place] [address] 85562- 7029 Mar, Low back pain, unspecified back pain laterality, with sciatica presence unspecified M54.5 [place] [id number] [place] [address] 46030- 5827 Mar, BMI 32.0-32.9,adult Z68.32 [place] [id number] [place] [address] 63734- 1234 Feb, Anxiety F41.9 [place] [id number] [place] [address] 35569- 9674 Feb, Depression, unspecified depression type F32.9 [place] [id number] [place] [address] 16205- 8060 Feb, BMI 32.0-32.9,adult Z68.32 [facility] [id number] [place] [address] 65880- 7876 Feb, Low back pain, unspecified back pain laterality, with sciatica presence unspecified M54.5 [place] [id number] [place] [address] 97414- 2911 14 Feb, 2016 [place] [id number] [place] [address] 59101- 5291 03 Feb, 2016 BMI 32.0-32.9,adult Z68.32 [place] [id number] [place] [address] 02041- 8863 Feb, Anxiety F41.9 [place] [id number] [place] [address] 33239- 8805 January, BMI 32.0-32.9,adult Z68.32 [place] [id number] [place] [address] 34355- 7852 January, Low back pain, unspecified back pain laterality, with sciatica presence unspecified M54.5 ; Other chronic pain G89.29 ; Weight gain R63.5 and Rheumatoid arthritis, involving unspecified site, unspecified rheumatoid factor presence M06.9 [place] [id number] [place] [address] 99854- 0629 January, Low back pain, unspecified back pain laterality, with sciatica presence unspecified M54.5 [place] [id number] [place] [address] 02764- 9308 January, BMI 32.0-32.9,adult Z68.32 [place] [id number] [place] [address] 26018- 1571 January, BMI 32.0-32.9,adult Z68.32 [place] [id number] [place] [address] 39590- 9087 05 Jan, 2016 BMI 32.0-32.9,adult Z68.32 [place] [id number] [place] [address] 61873- 1012 Dec, Insomnia G47.00 and Dysthymia F34.1 [place] [id number] [address]- 3250 Dec, [facility] [id number] [place] [address] 89338- 8095 Dec, Other chronic pain G89.29 ; Neuropathy G62.9 and Dysthymia F34.1 [facility] [id number] [place] [address] 38256- 0148 Dec, [facility] [id number] [place] [address] 85775- 0962 Nov, [facility] [id number] [place] [address] 48020- 1013 Nov, [facility] [id number] [place] [address] 67763- 1908 Nov, [facility] [id number] [place] [address] 28873- 0589 Oct, [facility] [id number] [place] [address] 26324- 0090 Oct, [facility] [id number] [place] [address] 08776- 9953 Oct, Family history of diabetes mellitus Z83.3 [facility] [address] [address]- 8778 Oct, [facility] [id number] [place] [address] 69077- 4265 Sep, [facility] [id number] [place] [address] 83631- 6572 Sep, Eye pain, right H57.11 and Other chronic pain G89.29 [facility] [id number] [place] [address] 28539- 2746 Sep, [facility] [address] [address]- 4077 Sep, [facility] [id number] [place] [address] 22045- 5176 Sep, 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 ; Neuropathy G62.9 ; Low back pain, unspecified back pain laterality, with sciatica presence unspecified M54.5 ; Gastro-esophageal reflux disease without esophagitis K21.9 and Encounter for long-term (current) use of other medications V58.69 [place] [id number] [place] [address] 62991- 4872 Sep, [place] [id number] [place] [address] 54723- 3745 Sep, [place] [id number] [place] [address] 78099- 9646 Sep, [place] [id number] [place] [address] 86680- 4621 Sep, [place] [id number] [place] [address] 74383- 7108 Aug, [place] [id number] [place] [address] 58336- 1417 Aug, Family history of diabetes mellitus Z83.3 [place] [id number] [place] [address] 36345- 6447 Aug, [place] [address] [place] [address] 36788- 9711 Aug, [place] [id number] [place] [address] 17057- 9363 16 Aug, 2015 Family history of diabetes mellitus Z83.3 [place] [id number] [place] [address] 11365- 2354 14 Aug, 2015 Weight gain R63.5 ; Edema, unspecified R60.9 ; Family history of diabetes mellitus Z83.3 and Gastroesophageal reflux disease with esophagitis K21.0 [place] [address] [place] [address] 02245- 1187 Aug, [place] [address] [id number] [address]- 8974 Aug, [facility] [id number] [place] [address] 16959- 9723 Jul, [facility] [id number] [place] [address] 27950- 2692 Jul, [facility] [id number] [place] [address] 96812- 9208 Jul, [facility] [id number] [place] [address] 67078- 7407 Jun, [facility] [id number] [place] [address] 33979- 1541 Jun, Nose pain J34.89 ; Encounter for immunization Z23 ; Screening for breast cancer Z12.39 and Encounter for long-term (current) use of other medications V58.69 [facility] [id number] [place] [address] 40810- 1910 Jun, [facility] [id number] [place] [address] 88048- 6316 23 May, 2015 [facility] [id number] [place] [address] 08325- 1981 18 May, 2015 [facility] [id number] [place] [address] 04413- 3765 17 May, 2015 [facility] [id number] [place] [address] 72420- 9000 17 May, 2015 [facility] [id number] [place] [address] 00488- 2543 10 May, 2015 [facility] [id number] [place] [address] 14005- 2540 02 May, 2015 [facility] [address] [place] [address] 68297- 2543 02 May, 2015 [facility] [id number] [place] [address] 08955- 7684 Apr, [facility] [address] [address]- 6919 Apr, [facility] [address] [address]- 6458 Apr, [facility] [id number] [address]- 0045 Mar, [facility] [id number] [place] [address] 57958- 0970 Mar, [facility] [id number] [place] [address] 43712- 4727 Mar, Lesion of left shoulder 709.9 [facility] [id number] [place] [address] 16187- 3475 Mar, [facility] [id number] [place] [address] 51724- 1154 Mar, [facility] [address] [address]- 4420 Mar, [facility] [id number] [address]- 2202 Feb, [facility] [id number] [address]- 8907 Feb, [facility] [address] [address]- 4233 Feb, Unspecified backache 724.5 ; Weight gain 783.1 ; Hypothyroid 244.9 ; Edema 782.3 and Diaphoresis 780.8 [facility] [address] [address]- 1233 Feb, [facility] [id number] [address]- 1791 Feb, [facility] [address] [address]- 2703 Feb, [facility] [place] [facility] [address] [id number] [place] [address]- 7585 Feb, [facility] [place] [facility] [address] [id number] [place] [address]- 6614 Feb, [facility] [place] [facility] [address] [id number] [place] [address]- 6057 January, [facility] [place] [facility] [address] [id number] [place] [address]- 5075 January, [facility] [place] [facility] [address] [id number] [place] [address]- 8676 Dec, [facility] [place] [facility] [address] [id number] [place] [address]- 3404 Dec, [facility] [place] [facility] [address] [id number] [place] [address]- 5423 16 Nov, 2014 [facility] [place] [facility] [address] [id number] [place] [address]- 2634 16 Nov, 2014 [facility] [place] [facility] [address] [id number] [place] [address]- 9143 16 Nov, 2014 [facility] [place] [facility] [address] [id number] [place] [address] 16 Nov, 2014 [facility] [place] [facility] [address] [id number] [place] [address] 16 Nov, 2014 [facility] [place] [facility] [address] [id number] [place] [address] 16 Nov, 2014 [facility] [place] [facility] [address] [id number] [place] [address] 12 Nov, 2014 [facility] [place] [facility] [address] [id number] [place] [address] 12 Nov, 2014 [facility] [place] [facility] [address] [id number] [place] [address] 11 Nov, 2014 [facility] [place] [facility] [address] [id number] [place] [address] Nov, [facility] [place] [facility] [address] [id number] [place] [address] Nov, [facility] [place] [facility] [address] [id number] [place] [address] Nov, [facility] [place] [facility] [address] [id number] [place] Nov, [facility] [place] [facility] [address] [id number] [place] [address] Oct, [facility] [place] [facility] [address] [id number] [place] [address] Oct, [facility] [place] [facility] [address] [id number] [place] [address] Sep, [facility] [place] [facility] [address] [id number] [place] [address] Sep, [facility] [place] [facility] [address] [id number] [place] [address] Aug, [facility] [place] [facility] [address] [id number] [place] [address] Aug, [facility] [place] [facility] [address] [id number] [place] [address] Aug, [facility] [place] [facility] [address] [id number] [place] [address] Aug, [facility] [place] [facility] [address] [id number] [place] [address] Aug, [facility] [place] [facility] [address] [id number] [place] [address] Aug, [facility] [place] [facility] [address] [id number] [place] [address] Aug, [facility] [place] [facility] [address] [address] [id number] [place] [address] Aug, [facility] [place] [facility] [address] [id number] [place] [address] Aug, [facility] [place] [facility] [address] [id number] [place] [address] Jul, [facility] [place] [facility] [address] [id number] [place] [address] 5599 Jul, [facility] [place] [facility] [address] [id number] [place] [address] 9364 Jul, [facility] [place] [facility] [address] [id number] [place] [address] 0217 Jul, [facility] [place] [facility] [address] [id number] [place] [address]- 8873 Jul, [facility] [place] [facility] [address] [id number] [place] [address]- 2076 Jul, [facility] [place] [facility] [address] [id number] [place] [address] 3427 Jul, [facility] [place] [facility] [address] [id number] [place] [address]- 3299 Jul, [facility] [place] [facility] [address] [id number] [place] [address]- 9588 Jul, [facility] [place] [facility] [address] [id number] [place] [address] 4631 Jul, [facility] [place] [facility] [address] [id number] [place] [address]- 6567 Jun, [facility] [place] [facility] [address] [id number] [place] [address]- 5046 Jun, [facility] [place] [facility] [address] [id number] [place] [address] 6249 Jun, [facility] [place] [facility] [address] [id number] [place] [address]- 2661 Jun, [facility] [place] [facility] [address] [id number] [place] [address]- 5042 Jun, [facility] [place] [facility] [address] [id number] [place] [address]- 2337 Jun, [facility] [place] [facility] [address] [id number] [place] [address]- 1290 30 May, 2013 [facility] [place] [facility] [address] [id number] [place] [address]- 7587 30 May, 2013 [facility] [place] [facility] [address] [id number] [place] [address]- 9016 29 May, 2013 [facility] [place] [facility] [address] [id number] [place] [address]- 1294 29 May, 2013 [facility] [place] [facility] [address] [id number] [place] [address]- 5695 24 May, 2013 [facility] [place] [facility] [address] [id number] [place] [address]- 3911 May, 2013 [facility] [place] [facility] [address] [id number] [place] [address]- 9387 May, 2013 [facility] [place] [facility] [address] [id number] [place] [address]- 8784 May, [facility] [place] [facility] [address] [id number] [place] [address]- 0222 May, [facility] [place] [facility] [address] [id number] [address] May, [facility] [place] [facility] [address] [id number] [place] [address]- 8782 May, [facility] [place] [facility] [address] [id number] [place] [address]- 7915 May, [facility] [place] [facility] [address] [id number] [place] [address]- 7548 Apr, [facility] [place] [facility] [address] [id number] [place] [address]- 6026 Apr, [facility] [place] [facility] [address] [id number] [place] [address]- 2854 Apr, [facility] [place] [facility] [address] [id number] [place] [address]- 3303 Apr, [facility] [place] [facility] [address] [id number] [place] [address]- 4873 Apr, [facility] [place] [facility] [address] [id number] [place] [address]- 5865 Apr, [facility] [place] [facility] [address] [id number] [place] [address]- 0505 Apr, [facility] [place] [facility] [address] [id number] [place] [address]- 1560 Apr, [facility] [place] [facility] [address] [id number] [place] [address]- 1906 Apr, [facility] [place] [facility] [address] [id number] [place] [address]- 6754 Apr, [facility] [place] [facility] [address] [id number] [place] [address]- 8044 Apr, [facility] [place] [facility] [address] [id number] [place] [address]- 8219 Apr, [facility] [place] [facility] [address] [id number] [place] [address]- 4081 Apr, [facility] [place] [facility] [address] [id number] [place] [address]- 2479 Apr, [facility] [place] [facility] [address] [id number] [place] [address]- [address] Apr, [facility] [place] [facility] [address] [id number] [place] [address]- 1253 Apr, [facility] [place] [facility] [address] [id number] [place] [address]- 3496 Apr, [facility] [place] [facility] [address] [id number] [place] [address]- 5324 Apr, [facility] [place] [facility] [address] [id number] [place] [address]- 1579 Apr, [facility] [place] [facility] [address] [id number] [place] [address]- 6414 Apr, [facility] [place] [facility] [address] [id number] [place] [address] Apr, [facility] [place] [facility] [address] [id number] [place] [address]- 7496 Apr, [facility] [place] [facility] [address] [id number] [place] [address]- 8935 Apr, [facility] [place] [facility] [address] [id number] [place] [address]- 0533 Mar, [facility] [place] [facility] [address] [id number] [place] [address]- 0073 Mar, [facility] [place] [facility] [address] [id number] [place] [address]- 1275 Mar, [facility] [place] [facility] [address] [id number] [place] [address]- 2974 Mar, [facility] [place] [facility] [address] [id number] [place] [address]- 0490 Mar, [facility] [place] [facility] [address] [id number] [place] [address]- 7655 Mar, [facility] [place] [facility] [address] [id number] [place] [address]- 3144 Mar, [facility] [place] [facility] [address] [id number] [place] [address]- 8622 Mar, [facility] [place] [facility] [address] [id number] [place] [address]- 0050 Mar, [facility] [place] [facility] [address] [id number] [place] [address]- 4013 Mar, [facility] [place] [facility] [address] [id number] [place] [address]- 4095 Mar, [facility] [place] [facility] [address] [id number] [place] [address]- 5837 Mar, [facility] [place] [facility] [address] [id number] [place] [address]- 2615 Mar, [facility] [place] [facility] [address] [id number] [place] [address]- 5746 Mar, [facility] [place] [facility] [address] [id number] [place] [address]- 4739 Feb, [facility] [place] [facility] [address] [id number] [place]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
--- OUTSIDE RECORDS SUMMARY | 2018-06-07 11:41 | XMS REPORT ---
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 Name Role Phone PETER Kennedy Unavailable PROBLEMS Type Condition ICD9-CM Code [id number] Code Onset Dates Condition Status SNOMED Code Problem Chest pain, unspecified type R07.9 Active 97024254 Problem Depression, unspecified depression type F32.9 Active 48535306 Problem Anxiety F41.9 Active 20400107 Problem BMI 30.0-30.9,adult Z68.30 Active 042311246 Problem Moderate episode of recurrent major depressive disorder F33.1 Active 772905851 Problem Thyroid cancer C73 Active 305179019 Problem Postoperative hypothyroidism E89.0 Active 30804250 Problem BMI 31.0-31.9,adult Z68.31 Active 651434658 Problem Other atopic dermatitis L20.89 Active 31934074 Problem Low back pain, unspecified back pain laterality, with sciatica presence unspecified M54.5 Active 468060070 Problem Neuropathy G62.9 Active 618717898 Problem Other chronic pain G89.29 Active 24153480 Problem Dysthymia F34.1 Active 75834321 Problem 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 Active 36684900 Problem Insomnia G47.00 Active 926244648 Problem Gastro-esophageal reflux disease without esophagitis K21.9 Active 108709214 Problem Rheumatoid arthritis, involving unspecified site, unspecified rheumatoid factor presence M06.9 Active 78543314 ALLERGIES Substance Reaction Event Type Date Status Penicillin V Potassium anaphylaxis Drug Allergy Sep, Active Klonopin Makes her cry all the time Drug Allergy Sep, Active ENCOUNTERS Encounter Location Date Diagnosis [facility] [id number] [place] [address] Mar, Breast cancer screening Z12.39 and Discharge from nipple N64.52 [facility] [id number] [place] [address] 21125- 0390 Mar, Low back pain, unspecified back pain laterality, with sciatica presence unspecified M54.5 [facility] [id number] [place] [address] 03134- 7281 Mar, Low back pain, unspecified back pain laterality, with sciatica presence unspecified M54.5 ; Rheumatoid arthritis, involving unspecified site, unspecified rheumatoid factor presence M06.9 ; Breast cancer screening Z12.39 and Moderate episode of recurrent major depressive disorder F33.1 [facility] [id number] [place] [address] 96709- 0430 Feb, Low back pain, unspecified back pain laterality, with sciatica presence unspecified M54.5 [facility] [id number] [place] [address] 03102- 2132 January, BMI 30.0-30.9,adult Z68.30 [facility] [id number] [place] [address] 89680- 6016 January, Low back pain, unspecified back pain laterality, with sciatica presence unspecified M54.5 [facility] [id number] [place] [address] 33877- 1145 January, [facility] [id number] [place] [address] 14075- 3346 Dec, Low back pain, unspecified back pain laterality, with sciatica presence unspecified M54.5 [facility] [id number] [place] [address] 13397- 5341 Nov, Low back pain, unspecified back pain laterality, with sciatica presence unspecified M54.5 [facility] [id number] [place] [address] 77601- 9460 Nov, [facility] [id number] [place] [address] 51119- 3396 Nov, Low back pain, unspecified back pain laterality, with sciatica presence unspecified M54.5 ; Other chronic pain G89.29 ; Rheumatoid arthritis, involving unspecified site, unspecified rheumatoid factor presence M06.9 and Dysthymia F34.1 [facility] [address] 04712- 7071 Oct, Low back pain, unspecified back pain laterality, with sciatica presence unspecified M54.5 [facility] [address] 49858- 3481 Sep, Low back pain, unspecified back pain laterality, with sciatica presence unspecified M54.5 [facility] [address] [address]55 -[address]40 Sep, Fever R50.9 and URI, acute J06.9 [facility] [address] 01913- 0200 Aug, [facility] [address] 45774- 0240 Aug, Low back pain, unspecified back pain laterality, with sciatica presence unspecified M54.5 [facility] [address] 90499- 7673 Jul, Low back pain, unspecified back pain laterality, with sciatica presence unspecified M54.5 [facility] [id number] [place] [address] 20854 -6371 Jul, Nausea R11.0 ; Fever and chills R50.9 ; UTI symptoms R39.9 and Hematuria, unspecified type R31.9 [facility] [id number] [place] [address] 73929- 1384 Jul, [facility] [address] 70970- 2645 Jun, Low back pain, unspecified back pain laterality, with sciatica presence unspecified M54.5 [facility] [address] 67607- 7209 Jun, BMI 31.0-31.9,adult Z68.31 [facility] [id number] [place] [address] 04534- 6796 Jun, Neuropathy G62.9 [facility] [id number] [place] [address] 67949- 2725 Jun, Low back pain, unspecified back pain laterality, with sciatica presence unspecified M54.5 [facility] [id number] [place] [address] 14760- 9807 Jun, Encounter for immunization Z23 [facility] [address] 16304- 0442 Jun, BMI 31.0-31.9,adult Z68.31 [facility] [id number] [place] [address] 54744- 3311 Jun, Low back pain, unspecified back pain laterality, with sciatica presence unspecified M54.5 [facility] [id number] [place] [address] 00137- 7554 May, Low back pain, unspecified back pain laterality, with sciatica presence unspecified M54.5 ; Other chronic pain G89.29 ; Plantar fasciitis M72.2 ; Rheumatoid arthritis, involving unspecified site, unspecified rheumatoid factor presence M06.9 and History of alcohol abuse Z87.898 [facility] [id number] [place] [address] 56806- 8497 May, Anxiety F41.9 and Low back pain, unspecified back pain laterality, with sciatica presence unspecified M54.5 [facility] [id number] [place] [address] 37906- 9604 Apr, Anxiety F41.9 and Low back pain, unspecified back pain laterality, with sciatica presence unspecified M54.5 [facility] [id number] [place] [address] 80535- 2679 Mar, Acute right-sided low back pain without sciatica M54.5 ; Rash R21 ; Right flank pain R10.9 ; Lipid screening Z13.220 ; Other chronic pain G89.29 ; 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 ; Postoperative hypothyroidism E89.0 and Breast cancer screening Z12.39 [facility] [address] 27383- 9646 14 Mar, 2017 Anxiety F41.9 and Low back pain, unspecified back pain laterality, with sciatica presence unspecified M54.5 [facility] [address] 41527- 2768 13 Mar, 2017 Acute right-sided low back pain without sciatica M54.5 [facility] [address] 94976- 6253 07 Mar, 2017 Anxiety F41.9 [facility] [address] 96050- 8236 Feb, Right flank pain R10.9 and Anxiety F41.9 [facility] [address] 61696- 0834 16 Feb, 2017 BMI 31.0-31.9,adult Z68.31 [facility] [address] 38570- 6704 Feb, Low back pain, unspecified back pain laterality, with sciatica presence unspecified M54.5 and Anxiety F41.9 [facility] [id number] [place] [address] 01081 -2447 January, Abscess of toe of right foot L02.611 and Other atopic dermatitis L20.89 [facility] [id number] [place] [address] 61958- 5825 January, Low back pain, unspecified back pain laterality, with sciatica presence unspecified M54.5 and Anxiety F41.9 [facility] [id number] [place] [address] 77165- 2298 Dec, Anxiety F41.9 and Low back pain, unspecified back pain laterality, with sciatica presence unspecified M54.5 [facility] [address] 35390 -2742 Dec, Thao B86 [facility] [address] [id number]- 7986 Nov, Rash R21 ; Other chronic pain G89.29 ; 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 ; Postoperative hypothyroidism E89.0 ; Breast cancer screening Z12.39 and Lipid screening Z13.220 [facility] [id number]- 1223 Nov, Anxiety F41.9 and Low back pain, unspecified back pain laterality, with sciatica presence unspecified M54.5 [facility] [address] 75032- 9488 Oct, Anxiety F41.9 and Low back pain, unspecified back pain laterality, with sciatica presence unspecified M54.5 [facility] [address] 83579- 4997 Sep, Anxiety F41.9 and Low back pain, unspecified back pain laterality, with sciatica presence unspecified M54.5 [facility] [address] 35600- 4941 Sep, Anxiety F41.9 [facility] [address] 02694- 7858 Sep, Gastro-esophageal reflux disease without esophagitis K21.9 [facility] [address] [id number] Sep, Dental examination Z01.20 [facility] [address] 51528- 0871 Sep, Low back pain, unspecified back pain laterality, with sciatica presence unspecified M54.5 and Postoperative hypothyroidism E89.0 [facility] [address] 82751- 7298 Aug, Anxiety F41.9 [facility] [id number] [place] [address] 13439- 1178 Aug, [facility] [address] 63990- 8906 Aug, Low back pain, unspecified back pain laterality, with sciatica presence unspecified M54.5 ; Other chronic pain G89.29 ; Thyroid cancer C73 and Postoperative hypothyroidism E89.0 [facility] [address] 99440- 2658 Jul, [facility] [id number] [place] [address] 90625- 9725 Jul, Anxiety F41.9 [facility] [address] 88573- 5595 Jul, [facility] [address] 46111- 4460 Jul, BMI 29.0-29.9,adult Z68.29 [facility] [id number] [place] [address] 98389- 7364 Jul, [facility] [address] 99315- 3336 Jul, BMI 30.0-30.9,adult Z68.30 [facility] [id number] [place] [address] 01779- 2645 Jul, Low back pain, unspecified back pain laterality, with sciatica presence unspecified M54.5 and Anxiety F41.9 [facility] [id number] [place] [address] 43778- 7443 Jun, 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 [facility] [id number] [place] [address] 18082- 8204 Jun, BMI 30.0-30.9,adult Z68.30 [facility] [address] 97329- 1013 Jun, [facility] [address] 99484- 1138 Jun, 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 ; Dysthymia F34.1 ; Encounter for immunization Z23 and Other chronic pain G89.29 [facility] [address] 21500- 5515 06 Jun, 2016 Low back pain, unspecified back pain laterality, with sciatica presence unspecified M54.5 [facility] [address] 18121- 8339 04 Jun, 2016 BMI 30.0-30.9,adult Z68.30 [facility] [address] 70187- 2413 Jun, Anxiety F41.9 [facility] [address] 30457- 0979 May, 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 [facility] [address] 87310- 6092 12 May, 2016 Constipation, unspecified constipation type K59.00 [facility] [address] 99725- 9035 08 May, 2016 Low back pain, unspecified back pain laterality, with sciatica presence unspecified M54.5 [facility] [address] 96508- 9661 May, [facility] [address] 60226- 3299 May, Constipation, unspecified constipation type K59.00 [facility] [address] 89876- 5350 May, Anxiety F41.9 [facility] [address] 37637- 9406 Apr, BMI 31.0-31.9,adult Z68.31 [facility] [address] 26527- 1412 Apr, Thyroid goiter E04.9 [facility] [address] 47616- 0484 Apr, [facility] [address] 71598- 7839 Apr, Low back pain, unspecified back pain laterality, with sciatica presence unspecified M54.5 [facility] [address] 45479- 9603 Apr, [facility] [address] 72756- 9863 Apr, Constipation, unspecified constipation type K59.00 ; Thyroid nodule E04.1 ; Family history of colon cancer Z80.0 and 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 [facility] [address] 00209- 2615 Apr, Anxiety F41.9 [facility] [address] 24054- 2416 Mar, [facility] [address] 98542- 2238 Mar, Low back pain, unspecified back pain laterality, with sciatica presence unspecified M54.5 [facility] [id number] [place] [address] 24769- 5847 Mar, BMI 32.0-32.9,adult Z68.32 [facility] [id number] [place] [address] 20032- 1202 Feb, Anxiety F41.9 [facility] [address] 09637- 3051 Feb, Depression, unspecified depression type F32.9 [facility] [id number] [place] [address] 68277- 1412 Feb, BMI 32.0-32.9,adult Z68.32 [facility] [id number] [place] [address] 65651- 4478 16 Feb, 2016 Low back pain, unspecified back pain laterality, with sciatica presence unspecified M54.5 [facility] [id number] [place] [address] 98277- 1099 14 Feb, 2016 [facility] [id number] [place] [address] 29900- 1093 Feb, BMI 32.0-32.9,adult Z68.32 [facility] [id number] [place] [address] 37712- 6446 Feb, Anxiety F41.9 [facility] [id number] [place] [address] 69937- 4951 January, BMI 32.0-32.9,adult Z68.32 [facility] [id number] [place] [address] 47802- 5131 January, Low back pain, unspecified back pain laterality, with sciatica presence unspecified M54.5 ; Other chronic pain G89.29 ; Weight gain R63.5 and Rheumatoid arthritis, involving unspecified site, unspecified rheumatoid factor presence M06.9 [facility] [id number] [place] [address] 40914- 5993 January, Low back pain, unspecified back pain laterality, with sciatica presence unspecified M54.5 [facility] [id number] [place] [address] 82964- 0615 January, BMI 32.0-32.9,adult Z68.32 [facility] [id number] [place] [address] 78198- 9555 January, BMI 32.0-32.9,adult Z68.32 [facility] [id number] [place] [address] 12885- 0785 January, BMI 32.0-32.9,adult Z68.32 [facility] [id number] [place] [address] 67579- 9915 Dec, Insomnia G47.00 and Dysthymia F34.1 [facility] [id number] [place] [address] 93315- 5656 Dec, [facility] [id number] [place] [address] 96425 2540 Dec, Other chronic pain G89.29 ; Neuropathy G62.9 and Dysthymia F34.1 [facility] [id number] [place] [address] 69448- 7701 Dec, [facility] [id number] [place] [address] 67274- 4769 Nov, [facility] [id number] [place] [address] 49106- 7818 Nov, [facility] [id number] [place] [address] 31983- 3737 Nov, [facility] [id number] [place] [address] 47479- 0997 Oct, [facility] [id number] [place] [address] 18939- 8224 Oct, [facility] [id number] [place] [address] 08248- 7543 Oct, Family history of diabetes mellitus Z83.3 [facility] [id number] [place] [address] 82166- 1951 Oct, [facility] [address] [place] [address] 71680- 7183 Sep, [facility] [id number] [place] [address] 65300- 6773 Sep, Eye pain, right H57.11 and Other chronic pain G89.29 [facility] [id number] [place] [address] 64488- 9521 Sep, [facility] [address], [place] [address]- 9256 Sep, [facility] [id number] [place] [address] 73565- 9601 Sep, 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 ; Neuropathy G62.9 ; Low back pain, unspecified back pain laterality, with sciatica presence unspecified M54.5 ; Gastro-esophageal reflux disease without esophagitis K21.9 and Encounter for long-term (current) use of other medications V58.69 [facility] [id number] [address]- 9604 Sep, [facility] [id number] [place] [address] 51542- 1767 Sep, [facility] [id number] [place] [address] 04603- 6472 Sep, [facility] [id number] [place] [address] 98231- 5012 Sep, [facility] [address] [place] [address] 45290- 7086 Aug, [facility] [id number] [place] [address] 70780- 7409 Aug, Family history of diabetes mellitus Z83.3 [facility] [address] [address]- 0289 Aug, [facility] [id number] [place] [address] 16096- 6291 Aug, [facility] [address] [address]- 3135 16 Aug, 2015 Family history of diabetes mellitus Z83.3 [facility] [address] [address]- 1775 14 Aug, 2015 Weight gain R63.5 ; Edema, unspecified R60.9 ; Family history of diabetes mellitus Z83.3 and Gastroesophageal reflux disease with esophagitis K21.0 [facility] [address], [place] [address]- 3736 14 Aug, 2015 [facility] [id number] [place] [address] 32400- 4066 10 Aug, 2015 [facility] [address] [address]- 0392 19 Jul, 2015 [facility] [id number] [place] [address] 03863- 7024 Jul, [facility] [address], [place] [address]- 1995 Jul, [facility] [id number] [place] [address] 28584- 7647 Jun, [facility] [address] [place] [address] 79710- 9483 Jun, Nose pain J34.89 ; Encounter for immunization Z23 ; Screening for breast cancer Z12.39 and Encounter for long-term (current) use of other medications V58.69 [facility] [address], [place] [address]- 3605 Jun, [facility] [id number] [place] [address] 07057- 8753 23 May, 2015 [facility] [address], [place] [address]- 2164 18 May, 2015 [facility] [address], [place] [address]- 9516 17 May, 2015 [facility] [address], [place] [address]- 0183 17 May, 2015 [facility] [address], [place] [address]- 0746 10 May, 2015 [facility] [address] 1130 02 May, 2015 [facility] [address] [place] [address] 63154- 3959 May, [facility] [address], [place] [address]- 2961 Apr, [facility] [address], [place] [address]- 7893 Apr, [facility] [address], [place] [address]- 0963 Apr, [facility] [address], [place] [address]- 0330 Mar, [facility] [id number] [place] [address] 51629- 5397 Mar, [facility] [address], [place] [address]- 8424 Mar, Lesion of left shoulder 709.9 [facility] [id number] [place] [address] 14478- 1692 Mar, [facility] [address], [place] [address]- 8293 Mar, [facility] [address], [place] [address]- 0250 Mar, [facility] [address], [place] [address]- 4138 Feb, [facility] [address], [place] [address]- 5408 Feb, [facility] [address], [place] [address]- 3188 Feb, Unspecified backache 724.5 ; Weight gain 783.1 ; Hypothyroid 244.9 ; Edema 782.3 and Diaphoresis 780.8 [facility] [address], [place] [address]- 6041 Feb, [facility] [address], [place] [address]- 7146 Feb, [facility] [place] [facility] [address] [id number] [place] [address]- 2261 09 Feb, 2015 [facility] [place] [facility] [address] [id number] [place] [address]- 5132 Feb, [facility] [place] [facility] [address] [id number] [place] [address]- 3129 Feb, [facility] [place] [facility] [address] [id number] [place] [address]- 3499 January, [facility] [place] [facility] [address] [id number] [place] [address]- 0352 January, [facility] [place] [facility] [address] [id number] [place] [address]- 1634 14 Dec, 2014 [facility] [place] [facility] [address] [id number] [place] [address] Dec, [facility] [place] [facility] [address] [id number] [place] [address] 16 Nov, 2014 [facility] [place] [facility] [address] [id number] [place] [address] 16 Nov, 2014 [facility] [place] [facility] [address] [id number] [place] [address] 16 Nov, 2014 [facility] [place] [facility] [address] [id number] [place] [address] 16 Nov, 2014 [facility] [place] [facility] [address] [id number] [place] [address] 16 Nov, 2014 [facility] [place] [facility] [address] [id number] [place] [address] 16 Nov, 2014 [facility] [place] [facility] [address] [id number] [place] [address] 12 Nov, 2014 [facility] [place] [facility] [address] [id number] [place] [address] [address] 12 Nov, 2014 [facility] [place] [facility] [address] [id number] [place] [address] Nov, [facility] [place] [facility] [address] [id number] [place] [address] Nov, [facility] [place] [facility] [address] [id number] [place] [address] Nov, [facility] [place] [facility] [address] [id number] [place] [address] Nov, [facility] [place] [facility] [address] [id number] [place] [address] Nov, [facility] [place] [facility] [address] [id number] [place] [address] Oct, [facility] [place] [facility] [address] [id number] [place] [address] Oct, [facility] [place] [facility] [address] [facility] [id number] [place] [address] 1306 Sep, [facility] [place] [facility] [address] [id number] [place] [address] Sep, [facility] [place] [facility] [address] [facility] [id number] [place] [address]- 5180 Aug, [facility] [place] [facility] [address] [facility] [id number] [place] [address]- 4123 Aug, [facility] [place] [facility] [address] [id number] [place] [address]- 9453 Aug, [facility] [place] [facility] [address] [id number] [place] [address] 5939 Aug, [facility] [place] [facility] [address] [id number] [place] [address] Aug, [facility] [place] [facility] [address] [id number] [place] [address] Aug, [facility] [place] [facility] [address] [facility] [id number] [place] [address]- 8652 Aug, [facility] [place] [facility] [address] [id number] [place] [address]- 2171 Aug, [facility] [place] [facility] [address] [id number] [place] [address]- 8674 Aug, [facility] [place] [facility] [address] [id number] [place] [address]- 5351 Jul, [facility] [place] [facility] [address] [id number] [place] [address]- 0431 Jul, [facility] [place] [facility] [address] [id number] [place] [address]- 7718 Jul, [facility] [place] [facility] [address] [id number] [place] [address]- 3165 Jul, [facility] [place] [facility] [address] [id number] [place] [address]- 1048 Jul, [facility] [place] [facility] [address] [id number] [place] [address]- 9541 Jul, [facility] [place] [facility] [address] [id number] [place] [address]- 2106 Jul, [facility] [place] [facility] [address] [id number] [place] [address]- 6012 Jul, [facility] [place] [facility] [address] [id number] [place] [address]- 4317 Jul, [facility] [place] [facility] [address] [id number] [place] [address]- 2072 Jul, [facility] [place] [facility] [address] [id number] [place] [address]- 6159 Jun, [facility] [place] [facility] [address] [id number] [place] [address]- 9779 Jun, [facility] [place] [facility] [address] [id number] [place] [address]- 8347 Jun, [facility] [place] [facility] [address] [id number] [place] [address]- 4322 Jun, [facility] [place] [facility] [address] [id number] [place] [address]- 8618 Jun, [facility] [place] [facility] [address] [id number] [place] [address]- 9574 Jun, [facility] [place] [facility] [address] [id number] [place] [address]- 5727 30 May, 2014 [facility] [place] [facility] [address] [id number] [place] [address]- 7815 30 May, 2013 [facility] [place] [facility] [address] [id number] [place] [address]- 5140 29 May, 2014 [facility] [place] [facility] [address] [id number] [place] [address]- 5655 29 May, 2014 [facility] [place] [facility] [address] [id number] [place] [address]- 8752 24 May, 2014 [facility] [place] [facility] [address] [id number] [place] [address]- 3560 24 May, 2014 [facility] [place] [facility] [address] [id number] [place] [address]- 8649 May, [facility] [place] [facility] [address] [id number] [place] [address]- 2417 May, [facility] [place] [facility] [address] [id number], [place] [address]- 1606 May, 2013 [facility] [place] [facility] [address] [id number], [place] [address]- [address] 05 May, 2013 [facility] [place] [facility] [address] [id number] [place] [address]- 3959 May, [facility] [place] [facility] [address] [id number] [place] [address]- 6991 May, 2013 [facility] [place] [facility] [address] [id number] [place] [address]- 7191 Apr, [facility] [place] [facility] [address] [id number] [place] [address]- 2289 Apr, [facility] [place] [facility] [address] [id number] [place] [address]- 6249 Apr, [facility] [place] [facility] [address] [id number] [place] [address]- 4447 Apr, [facility] [place] [facility] [address] [id number] [place] [address]- 0782 Apr, [facility] [place] [facility] [address] [id number] [place] [address]- 7695 Apr, [facility] [place] [facility] [address] [id number] [place] [address]- 9256 Apr, [facility] [place] [facility] [address] [id number] [place] [address]- 7138 Apr, [facility] [place] [facility] [address] [id number] [place] [address]- 6113 Apr, [facility] [place] [facility] [address] [id number] [place] [address]- 6818 Apr, [facility] [place] [facility] [address] [id number] [place] [address]- 7165 Apr, [facility] [place] [facility] [address] [id number] [place] [address]- 4573 Apr, [facility] [place] [facility] [address] [id number] [place] [address]- 9181 Apr, [facility] [place] [facility] [address] [id number] [place] [address]- 4312 Apr, [facility] [place] [facility] [address] [id number] [place] [address]- 6536 Apr, [facility] [place] [facility] [address] [id number] [place] [address]- 5055 Apr, [facility] [place] [facility] [address] [id number] [place] [address]- 3079 Apr, [facility] [place] [facility] [address] [id number] [place] [address]- 4100 Apr, [facility] [place] [facility] [address] [id number] [place] [address]- 2102 Apr, [facility] [place] [facility] [address] [id number] [place] [address]- 2952 Apr, [facility] [place] [facility] [address] [id number] [place] [address]- 6403 Apr, [facility] [place] [facility] [address] [id number] [place] [address]- 6553 Apr, [facility] [place] [facility] [address] [id number] [place] [address]- 5444 Apr, [facility] [place] [facility] [address] [id number] [place] [address]- 0761 Mar, [facility] [place] [facility] [address] [id number] [place] [address]- 4146 Mar, [facility] [place] [facility] [address] [id number] [place] [address]- 5639 Mar, [facility] [place] [facility] [address] [id number] [place] [address]- 5894 Mar, [facility] [place] [facility] [address] [id number] [place] [address]- 6059 Mar, [facility] [place] [facility] [address] [id number] [place] [address]- 2269 Mar, [facility] [place] [facility] [address] [id number] [place] [address]- 7054 Mar, [facility] [place] [facility] [address] [id number] [place] [address]- 5168 Mar, [facility] [place] [facility] [address] [id number] [place] [address]- 8499 Mar, [facility] [place] [facility] [address] [id number] [place] [address]- 3074 Mar,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
--- OUTSIDE RECORDS SUMMARY | 2018-06-07 11:42 | XMS REPORT ---
Author Author ELISEO BENDER Organization [employer] Address Unknown Phone Unavailable Care Team Providers Care Septic Tank Servicer Name Role Phone ELISOE BENDER CP Unavailable Allergies No Known Allergies Problems Problem Type Condition Code Onset Dates Condition Status Problem Unspecified backache 724.5 Active Problem Restless legs syndrome [RLS] 333.94 Active Problem Special screening for malignant neoplasms, colon V76.51 Active Problem Lump or mass in breast 611.72 Active Problem Other malaise and fatigue 780.79 Active Problem Unspecified breast screening V76.10 Active Problem Hypertrophy of uterus 621.2 Active Problem Cervicalgia 723.1 Active Problem Edema 782.3 Active Problem Special screening examination, human papillomavirus [HPV] V73.81 Active Problem Other chronic allergic conjunctivitis 372.14 Active Problem Chest pain, unspecified 786.50 Active Problem Memory loss 780.93 Active Problem Basal cell carcinoma of skin of trunk, except scrotum 173.51 Active Problem Costochondritis 733.6 Active Problem Unspecified hereditary and idiopathic peripheral neuropathy 356.9 Active Problem Encounter for long-term (current) use of other medications V58.69 Active Problem Rheumatoid arthritis 714.0 Active Problem Dysuria 788.1 Active Problem Pain in joint, shoulder region 719.41 Active Problem Unspecified myalgia and myositis 729.1 Active Medications Medication Code System Code Instructions Start Date End Date Status Dosage Alprazolam [facility] [address]-73 0.25 MG TAKE ONE TABLET BY MOUTH THREE TIMES DAILY NEEDED FOR ANXIETY tramadol NDC 0 50 mg November 16, 2014 2tablet by Oral route every 8 hours Results No Known Results Summary Purpose [employer] Submission
--- OUTSIDE RECORDS SUMMARY | 2018-06-07 11:42 | XMS REPORT ---
Author Author ELISEO BENDER Organization [employer] Address Unknown Phone Unavailable Care Team Providers Care Filler And Trimmer Name Role Phone ELISEO BENDER CP Unavailable Allergies No Known Allergies Problems Problem Type Condition Code Onset Dates Condition Status Problem Other malaise and fatigue 780.79 Active Problem Unspecified hereditary and idiopathic peripheral neuropathy 356.9 Active Problem Rheumatoid arthritis 714.0 Active Problem Other chronic pain G89.29 Active Problem 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 Active Problem Dysthymia F34.1 Active Problem Gastro-esophageal reflux disease without esophagitis K21.9 Active Problem Unspecified backache 724.5 Active Problem Neuropathy G62.9 Active Problem Low back pain, unspecified back pain laterality, with sciatica presence unspecified M54.5 Active Medications Medication Code System Code Instructions Start Date End Date Status Dosage tramadol NDC 0 50 mg orally 3 times a day November 16, 2014 2 Tablets Results No Known Results Summary Purpose [employer] Submission
--- OUTSIDE RECORDS SUMMARY | 2018-06-07 11:42 | XMS REPORT ---
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 Name Role Phone ELISEO BENDER Unavailable PROBLEMS Type Condition ICD9-CM Code MQG79-PI Code Onset Dates Condition Status SNOMED Code Problem Insomnia G47.00 Active 674929938 Problem Chest pain, unspecified type R07.9 Active 64371266 Problem Rheumatoid arthritis, involving unspecified site, unspecified rheumatoid factor presence M06.9 Active 28377869 Problem BMI 31.0-31.9,adult Z68.31 Active 097081180 Problem Other atopic dermatitis L20.89 Active 47602902 Problem Depression, unspecified depression type F32.9 Active 47736621 Problem Anxiety F41.9 Active 16839667 Problem Thyroid cancer C73 Active 909867339 Problem Postoperative hypothyroidism E89.0 Active 83672941 Problem 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 Active 16084098 Problem Gastro-esophageal reflux disease without esophagitis K21.9 Active 127740946 Problem Low back pain, unspecified back pain laterality, with sciatica presence unspecified M54.5 Active 466022944 Problem Other chronic pain G89.29 Active 08047787 Problem Neuropathy G62.9 Active 123548667 Problem Dysthymia F34.1 Active 10558079 ALLERGIES No Information ENCOUNTERS Encounter Location Date Diagnosis [facility] [place] [id number] [address] January, [facility] [place] [id number] [place] [address] 88297- 8040 Dec, Low back pain, unspecified back pain laterality, with sciatica presence unspecified M54.5 [facility] [place] [id number] [address] Nov, Low back pain, unspecified back pain laterality, with sciatica presence unspecified M54.5 [place] [address] [address] Nov, [place] [address] [id number] 3980 Nov, Low back pain, unspecified back pain laterality, with sciatica presence unspecified M54.5 ; Other chronic pain G89.29 ; Rheumatoid arthritis, involving unspecified site, unspecified rheumatoid factor presence M06.9 and Dysthymia F34.1 [place] [address] [address]- 3244 Oct, Low back pain, unspecified back pain laterality, with sciatica presence unspecified M54.5 [place] [address] 92438- 0254 Sep, Low back pain, unspecified back pain laterality, with sciatica presence unspecified M54.5 [facility] [address] [address] -[address]12 Sep, Fever R50.9 and URI, acute J06.9 [place] [address] 74013- 4351 Aug, [place] [address] 42021- 8073 Aug, Low back pain, unspecified back pain laterality, with sciatica presence unspecified M54.5 [place] [address] 27245- 7289 Jul, Low back pain, unspecified back pain laterality, with sciatica presence unspecified M54.5 [facility] [place] [address] [address] 15 Jul, 2017 Nausea R11.0 ; Fever and chills R50.9 ; UTI symptoms R39.9 and Hematuria, unspecified type R31.9 [place] [address] 70078- 1005 Jul, [place] [id number] [place] [address] 78209- 8161 Jun, Low back pain, unspecified back pain laterality, with sciatica presence unspecified M54.5 [place] [id number] [place] [address] 80753- 3111 Jun, BMI 31.0-31.9,adult Z68.31 [place] [address] 9[address]86- 3288 Jun, Neuropathy G62.9 [place] [address] 08483- 5942 Jun, Low back pain, unspecified back pain laterality, with sciatica presence unspecified M54.5 [place] [address] [address]- 0224 Jun, Encounter for immunization Z23 [place] [address] 82473- 2922 Jun, BMI 31.0-31.9,adult Z68.31 [place] [address] 24944- 6303 Jun, Low back pain, unspecified back pain laterality, with sciatica presence unspecified M54.5 [place] [id number] [place] [address] 76399- 6049 May, Low back pain, unspecified back pain laterality, with sciatica presence unspecified M54.5 ; Other chronic pain G89.29 ; Plantar fasciitis M72.2 ; Rheumatoid arthritis, involving unspecified site, unspecified rheumatoid factor presence M06.9 and History of alcohol abuse Z87.898 [place] [id number] [place] [address] 98436- 8683 May, Anxiety F41.9 and Low back pain, unspecified back pain laterality, with sciatica presence unspecified M54.5 [place] [address] 78933- 4877 11 Apr, 2017 Anxiety F41.9 and Low back pain, unspecified back pain laterality, with sciatica presence unspecified M54.5 [place] [address] 07290- 8322 18 Mar, 2017 Acute right-sided low back pain without sciatica M54.5 ; Rash R21 ; Right flank pain R10.9 ; Lipid screening Z13.220 ; Other chronic pain G89.29 ; 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 ; Postoperative hypothyroidism E89.0 and Breast cancer screening Z12.39 [place] [address] 47581- 7856 14 Mar, 2017 Anxiety F41.9 and Low back pain, unspecified back pain laterality, with sciatica presence unspecified M54.5 [place] [address] 72281- 7092 13 Mar, 2017 Acute right-sided low back pain without sciatica M54.5 [place] [address] 81517- 3383 07 Mar, 2017 Anxiety F41.9 [place] [address] 41186- 0229 28 Feb, 2017 Right flank pain R10.9 and Anxiety F41.9 [place] [address] 84312- 3122 16 Feb, 2017 BMI 31.0-31.9,adult Z68.31 [place] [address] 08352- 6763 16 Feb, 2017 Low back pain, unspecified back pain laterality, with sciatica presence unspecified M54.5 and Anxiety F41.9 [facility] [address] [address]6 January, Abscess of toe of right foot L02.611 and Other atopic dermatitis L20.89 [place] [address] 54017- 0692 January, Low back pain, unspecified back pain laterality, with sciatica presence unspecified M54.5 and Anxiety F41.9 [place] [address] [id number]- 6538 Dec, Anxiety F41.9 and Low back pain, unspecified back pain laterality, with sciatica presence unspecified M54.5 [facility] [address] [address] -1748 Dec, Scabies B86 [place] [address] 80123- 5273 Nov, Rash R21 ; Other chronic pain G89.29 ; 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 ; Postoperative hypothyroidism E89.0 ; Breast cancer screening Z12.39 and Lipid screening Z13.220 [place] [address] 05716- 2066 Nov, Anxiety F41.9 and Low back pain, unspecified back pain laterality, with sciatica presence unspecified M54.5 [place] [address] 75496- 2761 Oct, Anxiety F41.9 and Low back pain, unspecified back pain laterality, with sciatica presence unspecified M54.5 [place] [address] 76167- 2794 Sep, Anxiety F41.9 and Low back pain, unspecified back pain laterality, with sciatica presence unspecified M54.5 [place] [address] 81948- 6398 Sep, Anxiety F41.9 [place] [address] 11523- 5934 Sep, Gastro-esophageal reflux disease without esophagitis K21.9 [facility] [address] [id number] Sep, Dental examination Z01.20 [place] [id number] [place] [address] 95056- 5659 Sep, Low back pain, unspecified back pain laterality, with sciatica presence unspecified M54.5 and Postoperative hypothyroidism E89.0 [place] [id number] [place] [address] 74374- 2104 Aug, Anxiety F41.9 [place] [id number] [place] [address] 92111- 8372 Aug, [place] [address] 24465- 1549 Aug, Low back pain, unspecified back pain laterality, with sciatica presence unspecified M54.5 ; Other chronic pain G89.29 ; Thyroid cancer C73 and Postoperative hypothyroidism E89.0 [place] [id number] [place] [address] 59705- 6493 Jul, [place] [address] 45744- 5964 Jul, Anxiety F41.9 [place] [id number] [place] [address] 97060- 5013 Jul, [place] [id number] [place] [address] 41772- 4875 Jul, BMI 29.0-29.9,adult Z68.29 [place] [id number] [place] [address] 20515- 0722 Jul, [place] [id number] [place] [address] 20540- 9785 Jul, BMI 30.0-30.9,adult Z68.30 [place] [id number] [place] [address] 63181- 8462 Jul, Low back pain, unspecified back pain laterality, with sciatica presence unspecified M54.5 and Anxiety F41.9 [place] [id number] [place] [address] 17431- 0240 Jun, 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 [facility] [place] [id number] [place] [address] 22259- 4110 17 Jun, 2016 BMI 30.0-30.9,adult Z68.30 [facility] [place] [address] 23400- 8276 14 Jun, 2016 [facility] [place] [address] 804546- 2991 Jun, 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 ; Dysthymia F34.1 ; Encounter for immunization Z23 and Other chronic pain G89.29 [place] [address] 518781- 1406 06 Jun, 2016 Low back pain, unspecified back pain laterality, with sciatica presence unspecified M54.5 [place] [address] 91021- 9263 Jun, BMI 30.0-30.9,adult Z68.30 [facility] [place] [address] 43999- 1150 Jun, Anxiety F41.9 [place] [address] 66133- 2304 May, 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 [facility] [place] [id number] [place] [address] 98620- 1344 May, Constipation, unspecified constipation type K59.00 [facility] [place] [address] 75690- 9538 08 May, 2016 Low back pain, unspecified back pain laterality, with sciatica presence unspecified M54.5 [facility] [place] [address] 75462- 0515 May, [facility] [place] [address] 53507- 3196 07 May, 2016 Constipation, unspecified constipation type K59.00 [facility] [place] [id number] [place] [address] 81387- 7586 May, Anxiety F41.9 [place] [address] 04970- 4074 Apr, BMI 31.0-31.9,adult Z68.31 [place] [address] 57141- 6886 Apr, Thyroid goiter E04.9 [place] [address] 33566- 2106 Apr, [place] [address] 30568- 5441 Apr, Low back pain, unspecified back pain laterality, with sciatica presence unspecified M54.5 [place] [address] 08382- 2088 Apr, [place] [address] 22621- 2930 Apr, Constipation, unspecified constipation type K59.00 ; Thyroid nodule E04.1 ; Family history of colon cancer Z80.0 and 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 [place] [address] 14775- 7880 Apr, Anxiety F41.9 [place] [id number] [place] [address] 33084- 9862 Mar, [place] [address] 05370- 1289 Mar, Low back pain, unspecified back pain laterality, with sciatica presence unspecified M54.5 [place] [address] 00653- 1058 Mar, BMI 32.0-32.9,adult Z68.32 [place] [address] 61607- 6405 Feb, Anxiety F41.9 [place] [id number] [place] [address] 76651- 1183 30 Feb, 2016 Depression, unspecified depression type F32.9 [place] [id number] [place] [address] 95500- 1033 Feb, BMI 32.0-32.9,adult Z68.32 [place] [id number] [place] [address] 89568- 3011 16 Feb, 2016 Low back pain, unspecified back pain laterality, with sciatica presence unspecified M54.5 [place] [id number] [place] [address] 17894- 1207 Feb, [place] [id number] [place] [address] 83941- 8707 Feb, BMI 32.0-32.9,adult Z68.32 [place] [id number] [place] [address] 87154- 2955 Feb, Anxiety F41.9 [place] [id number] [place] [address] 60150- 2808 January, BMI 32.0-32.9,adult Z68.32 [place] [id number] [place] [address] 88060- 6572 January, Low back pain, unspecified back pain laterality, with sciatica presence unspecified M54.5 ; Other chronic pain G89.29 ; Weight gain R63.5 and Rheumatoid arthritis, involving unspecified site, unspecified rheumatoid factor presence M06.9 [place] [address] [place] [address] 33463- 4641 January, Low back pain, unspecified back pain laterality, with sciatica presence unspecified M54.5 [place] [id number] [place] [address] 63725- 8526 January, BMI 32.0-32.9,adult Z68.32 [place] [id number] [place] [address] 76933- 7402 January, BMI 32.0-32.9,adult Z68.32 [facility] [place] [id number] [place] [address] 60142- 0537 January, BMI 32.0-32.9,adult Z68.32 [facility] [place] [id number] [place] [address] 63911- 0838 Dec, Insomnia G47.00 and Dysthymia F34.1 [facility] [place] [address] 32495- 7299 Dec, [facility] [place] [address] 20130- 2102 Dec, Other chronic pain G89.29 ; Neuropathy G62.9 and Dysthymia F34.1 [facility] [place] [id number] [place] [address] 04506- 1632 Dec, [facility] [place] [id number] [place] [address] 98516- 0117 Nov, [facility] [place] [id number] [place] [address] 82087- 7186 Nov, [facility] [place] [id number] [place] [address] 59603- 5099 Nov, [facility] [place] [id number] [place] [address] 32903- 3383 Oct, [facility] [place] [id number] [place] [address] 05038- 4647 Oct, [facility] [place] [id number] [place] [address] 88295- 2323 Oct, Family history of diabetes mellitus Z83.3 [facility] [place] [id number] [place] [address] 74868- 1880 Oct, [facility] [place] [id number] [place] [address] 91431- 5620 Sep, [facility] [place] [id number] [place] [address] 08910- 0336 Sep, Eye pain, right H57.11 and Other chronic pain G89.29 [facility] [place] [id number] [place] [address] 63696- 7779 Sep, [facility] [place] [id number] [place] [address] 55380- 5699 Sep, [facility] [place] [id number] [place] [address] 23653- 1925 Sep, 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 ; Neuropathy G62.9 ; Low back pain, unspecified back pain laterality, with sciatica presence unspecified M54.5 ; Gastro-esophageal reflux disease without esophagitis K21.9 and Encounter for long-term (current) use of other medications V58.69 [place] [id number] [place] [address] 42457- 7243 Sep, [place] [id number] [place] [address] 64287- 0903 Sep, [place] [address] 92482- 7336 Sep, [place] [id number] [place] [address] 47807- 8168 Sep, [place] [id number] [place] [address] 94497- 2289 Aug, [facility] [place] [id number] [place] [address] 76059- 8364 Aug, Family history of diabetes mellitus Z83.3 [place] [address] 98316- 4118 Aug, [facility] [place] [id number] [place] [address] 19068- 7670 Aug, [facility] [place] [id number] [place] [address] 81643- 6037 Aug, Family history of diabetes mellitus Z83.3 [facility] [place] [id number] [place] [address] 53064- 2189 14 Aug, 2015 Weight gain R63.5 ; Edema, unspecified R60.9 ; Family history of diabetes mellitus Z83.3 and Gastroesophageal reflux disease with esophagitis K21.0 [facility] [place] [id number] [place] [address] 31785- 6560 14 Aug, 2015 [facility] [place] [id number] [place] [address] 33006- 1047 Aug, [facility] [place] [id number] [place] [address] 56289- 9204 Jul, [place] [id number] [place] [address] 70562- 2989 Jul, [place] [id number] [place] [address] 89523- 6763 Jul, [facility] [place] [id number] [place] [address] 00223- 1408 Jun, [facility] [place] [id number] [place] [address] 28214- 0350 Jun, Nose pain J34.89 ; Encounter for immunization Z23 ; Screening for breast cancer Z12.39 and Encounter for long-term (current) use of other medications V58.69 [place] [id number] [place] [address] 72102- 5114 Jun, [facility] [place] [id number] [place] [address] 95226- 2208 May, [place] [id number] [place] [address] 255302- 7017 18 May, 2015 [facility] [place] [id number] [place] [address] 23914- 3164 May, [facility] [place] [id number] [place] [address] 21861- 7325 May, [facility] [place] [address] [facility] [id number] [place] [address]- 2236 May, [facility] [address] [facility] [id number] [place] [address]- 6077 May, [facility] [address] [facility] [id number] [place] [address]- 9904 May, [facility] [address] [facility] [id number] [place] [address]- 4637 Apr, [facility] [address] [facility] [id number] [place] [address]- 8429 Apr, [facility] [address] [facility] [id number] [place] [address]- 8645 Apr, [facility] [place] [id number] [place] [address]- 7015 Mar, [facility] [place] [id number] [address]- 8404 Mar, [facility] [place] [id number] [address]- 3278 Mar, Lesion of left shoulder 709.9 [facility] [place] [id number] [address]- 2264 Mar, [facility] [place] [id number] [address]- 9989 Mar, [facility] [place] [id number] [address]- 9341 Mar, [facility] [id number] [address]- 6845 Feb, [facility] [id number] [address]- 9218 Feb, [facility] [id number] [address]- 8502 Feb, Unspecified backache 724.5 ; Weight gain 783.1 ; Hypothyroid 244.9 ; Edema 782.3 and Diaphoresis 780.8 [facility] [id number] [place] [address]- 8623 18 Feb, 2015 [facility] [id number] [place] [address]- 3635 10 Feb, 2015 [facility] [id number] [place] [address], [place] [address]- 4178 Feb, [facility] [address] [facility] [id number] [place] [address]- 2675 Feb, [facility] [id number] [place] [address], [place] [address]- 4587 Feb, [facility] [id number] [place] [address] January, [facility] [place] [id number] [place] [address] January, [facility] [place] [id number] [address] 14 Dec, 2014 [facility] [place] [id number] [place] [address] 13 Dec, 2014 [facility] [place] [id number] [address] 16 Nov, 2014 [facility] [place] [id number] [address] 16 Nov, 2014 [facility] [id number] [address] 16 Nov, 2014 [facility] [id number] [address] 16 Nov, 2014 [facility] [id number] [address] 16 Nov, 2014 [facility] [id number] [address] 16 Nov, 2014 [facility] [place] [facility] [address] [id number] [place] [address] Nov, [facility] [place] [facility] [address] [id number] [place] [address] Nov, [facility] [place] [facility] [address] [id number] [place] [address] Nov, [facility] [place] [facility] [address] [id number] [place] [address] Nov, [facility] [place] [facility] [address] [id number] [place] [address] Nov, [facility] [place] [facility] [address] [id number] [place] [address] Nov, [facility] [place] [facility] [address] [id number] [place] [address] Nov, [facility] [place] [facility] [address] [id number] [place] [address] Oct, [facility] [place] [facility] [address] [id number] [place] [address] Oct, [facility] [place] [facility] [address] [id number] [place] [address] Sep, [facility] [place] [facility] [address] [id number] [place] [address] Sep, [facility] [place] [facility] [address] [id number] [place] [address] Aug, [facility] [place] [facility] [address] [id number] [place] [address] 3215 Aug, [facility] [place] [facility] [address] [id number] [place] [address]387 Aug, [facility] [place] [facility] [address] [id number] [place] [address]- 9455 Aug, [facility] [place] [facility] [address] [id number] [place] [address]- 2900 17 Aug, 2014 [facility] [place] [facility] [address] [id number] [place] [address]- 1966 17 Aug, 2014 [facility] [place] [facility] [address] [id number] [place] [address] 1920 Aug, [facility] [place] [facility] [address] [id number] [place] [address]- 4275 Aug, [facility] [place] [facility] [address] [id number] [place] [address]- 3054 Aug, [facility] [place] [facility] [address] [id number] [place] [address]- 7529 Jul, [facility] [place] [facility] [address] [id number] [place] [address]- 2335 Jul, [facility] [place] [facility] [address] [id number] [place] [address]- 2790 Jul, [facility] [place] [facility] [address] [id number] [place] [address]- 0452 Jul, [facility] [place] [facility] [address] [id number] [place] [address]- 3271 Jul, [facility] [place] [facility] [address] [id number] [place] [address]- 1824 Jul, [facility] [place] [facility] [address] [id number] [place] [address]- 0950 Jul, [facility] [place] [facility] [address] [id number] [place] [address]- 6476 Jul, [facility] [place] [facility] [address] [id number] [place] [address]- 1858 Jul, [facility] [place] [facility] [address] [id number] [place] [address]- 9409 Jul, [facility] [place] [facility] [address] [id number] [place] [address]- 1404 Jun, [facility] [place] [facility] [address] [id number] [place] [address]- 9395 Jun, [facility] [place] [facility] [address] [id number] [place] [address]- 2270 Jun, [facility] [place] [facility] [address] [id number] [place] [address]- 1995 Jun, [facility] [place] [facility] [address] [id number] [place] [address]- 2531 Jun, [facility] [place] [facility] [address] [id number] [place] [address]- 0823 Jun, [facility] [place] [facility] [address] [id number] [place] [address]- 8962 30 May, 2013 [facility] [place] [facility] [address] [id number] [place] [address]- 9743 30 May, 2013 [facility] [place] [facility] [address] [id number] [place] [address]- 8477 29 May, 2013 [facility] [place] [facility] [address] [id number] [place] [address]- 8042 29 May, 2013 [facility] [place] [facility] [address] [id number] [place] [address]- 8119 24 May, 2013 [facility] [place] [facility] [address] [id number] [place] [address]- 2545 24 May, 2013 [facility] [place] [facility] [address] [id number] [place] [address]- 4581 22 May, 2013 [facility] [place] [facility] [address] [id number] [place] [address]- 2548 22 May, 2013 [facility] [place] [facility] [address] [id number] [place] [address]- 254 05 Sep, 2013 [facility] [place] [facility] [address] [id number] [place] [address]- 2548 05 Sep, 2013 [facility] [place] [facility] [address] [id number] [place] [address]- 0441 May, [facility] [place] [facility] [address] [id number] [place] [address]- 0405 May, [facility] [place] [facility] [address] [id number] [place] [address]- 6864 Apr, [facility] [place] [facility] [address] [id number] [place] [address]- 4360 Apr, [facility] [place] [facility] [address] [id number] [place] [address]- 0572 Apr, [facility] [place] [facility] [address] [id number] [place] [address]- 6296 Apr, [facility] [place] [facility] [address] [id number] [place] [address]- 0019 Apr, [facility] [place] [facility] [address] [id number] [place] [address]- 6395 Apr, [facility] [place] [facility] [address] [id number] [place] [address]- 4561 Apr, [facility] [place] [facility] [address] [id number] [place] [address]- 1218 Apr, [facility] [place] [facility] [address] [id number] [place] [address]- 2795 Apr, [facility] [place] [facility] [address] [id number] [place] [address]- 1645 Apr, [facility] [place] [facility] [address] [id number] [place] [address]- 7150 Apr, [facility] [place] [facility] [address] [id number] [place] [address]- 5995 Apr, [facility] [place] [facility] [address] [id number] [place] [address]- 7496 Apr, [facility] [place] [facility] [address] [id number] [place] [address]- 5218 Apr, [facility] [place] [facility] [address] [id number] [place] [address]- 3459 Apr, [facility] [place] [facility] [address] [id number] [place] [address]- 0809 Apr, [facility] [place] [facility] [address] [id number] [place] [address]- 1738 Apr, [facility] [place] [facility] [address] [id number] [place] [address]- 4533 Apr, [facility] [place] [facility] [address] [id number] [place] [address]- 0259 Apr, [facility] [place] [facility] [address] [id number] [place] [address]- 0983 Apr, [facility] [place] [facility] [address] [id number] [place] [address]- 9572 Apr, [facility] [place] [facility] [address] [id number] [place] [address]- 6762 Apr, [facility] [place] [facility] [address] [id number] [place] [address]- 9722 Apr, [facility] [place] [facility] [address] [id number] [place] [address]- 4011 Mar, [facility] [place] [facility] [address] [id number] [place] [address]- 8286 Mar, [facility] [place] [facility] [address] [id number] [place] [address]- 8944 Mar, [facility] [place] [facility] [address] [id number] [place] [address]- 6722 Mar, [facility] [place] [facility] [address] [id number] [place] [address]- 4908 Mar, [facility] [place] [facility] [address] [id number] [place] [address]- 3750 Mar, [facility] [place] [facility] [address] [id number] [place] [address]- 5760 Mar, [facility] [place] [facility] [address] [id number] [place] [address]- 3068 17 Mar, 2014 [facility] [place] [facility] [address] [id number] [place] [address]- 9705 Mar, [facility] [place] [facility] [address] [id number] [place] [address]- 5138 Mar, [facility] [place] [facility] [address] [id number] [place] [address]- 6126 Mar, [facility] [place] [facility] [address] [id number] [place] [address]- 4204 Mar, [facility] [place] [facility] [address] [id number] [place] [address]- 1649 Mar, [facility] [place] [facility] [address] [id number] [place] [address]- 6049 Mar, [facility] [place] [facility] [address] [id number] [place] [address]- 5872 Feb, [facility] [place] [facility] [address] [id number] [place] [address]- 9795 Feb, [facility] [place] [facility] [address] [id number] [place] [address]- 9787 Feb, [facility] [place] [facility] [address] [id number] [place] [address]- 0727 Feb, [facility] [place] [facility] [address] [id number] [place] [address]- 5082 Feb, [facility] [place] [facility] [address] [id number] [place] [address]- 8020 Feb, [facility] [place] [facility] [address] [id number] [place] [address]- 0247 Feb, [facility] [place] [facility] [address] [id number] [place] [address]- 2236 Feb, [facility] [place] [facility] [address] [id number] [place] [address]- 9259 Dec, [facility] [place] [facility] [address] [id number] [place] [address]- 5609 Dec, [facility] [place] [facility] [address] [id number] [place] [address]- 2065 Dec, [facility] [place] [facility] [address] [id number] [place] [address]- 1692 Dec, [facility] [place] [facility] [address] [id number] [place] [address]- 1284 Nov, [facility] [place] [facility] [address] [id number] [place] [address]- 4531 Nov, [facility] [place] [facility]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
--- OUTSIDE RECORDS SUMMARY | 2018-06-07 11:42 | XMS REPORT ---
Author Author ELISEO BENDER Organization [employer] Address Unknown Phone Unavailable Care Team Providers Care Educational Diagnostician Name Role Phone ELISEO BENDER CP Unavailable Allergies No Known Allergies Problems Problem Type Condition ICD-9 Code Onset Dates Condition Status Problem Unspecified [...] Instructions Start Date End Date Status Dosage Potassium Chloride ER [facility] [id number] 20 MEQ Orally Once a day May 24, 2015 2 tabs Results No Known Results Summary Purpose [employer] Submission
--- OUTSIDE RECORDS SUMMARY | 2018-06-07 11:42 | XMS REPORT ---
Author Author ELISEO BENDER Organization [employer] Address Unknown Phone Unavailable Care Team Providers Care Phlebotomist Prn Name Role Phone ELISEO BENDER CP Unavailable [...] Instructions Start Date End Date Status Dosage Lisinopril [facility] [address]-30 20 MG Orally Once a day 1 tablet Levothyroxine Sodium [facility] [address]-13 25 MCG TAKE 1 TABLET ONE TIME DAILY Results No Known Results Summary Purpose [employer] Submission
--- OUTSIDE RECORDS SUMMARY | 2018-06-07 11:43 | XMS REPORT ---
Author Author ELISEO BENDER Organization [facility] Address [address] [place] [address] Care Team Providers Care Community Living Specialist Name Role Phone ELISEO BENDER Unavailable PROBLEMS Type Condition ICD9-CM Code KIB02-MB Code Onset Dates Condition Status SNOMED Code Problem Insomnia G47.00 Active 240261288 Problem Chest pain, unspecified type R07.9 Active 58606341 Problem Rheumatoid arthritis, involving unspecified site, unspecified rheumatoid factor presence M06.9 Active 91556572 Problem BMI 31.0-31.9,adult Z68.31 Active 539054244 Problem Other atopic dermatitis L20.89 Active 49425135 Problem Depression, unspecified depression type F32.9 Active 25929815 Problem Anxiety F41.9 Active 42402074 Problem Thyroid cancer C73 Active 806432654 Problem Postoperative hypothyroidism E89.0 Active 45636754 Problem 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 Active 14574767 Problem Gastro-esophageal reflux disease without esophagitis K21.9 Active 000303838 Problem Low back pain, unspecified back pain laterality, with sciatica presence unspecified M54.5 Active 982525854 Problem Other chronic pain G89.29 Active 71138683 Problem Neuropathy G62.9 Active 837060418 Problem Dysthymia F34.1 Active 27832794 ALLERGIES No Information ENCOUNTERS Encounter Location Date Diagnosis [facility] [id number] [address] January, [facility] [id number] [place] [address]40- 8350 Dec, Low back pain, unspecified back pain laterality, with sciatica presence unspecified M54.5 [facility] [id number] [address] Nov, Low back pain, unspecified back pain laterality, with sciatica presence unspecified M54.5 [place] [address] 39578- 8458 Nov, [place] [address] [id number]- 7697 Nov, Low back pain, unspecified back pain laterality, with sciatica presence unspecified M54.5 ; Other chronic pain G89.29 ; Rheumatoid arthritis, involving unspecified site, unspecified rheumatoid factor presence M06.9 and Dysthymia F34.1 [place] [address] 82264- 0276 Oct, Low back pain, unspecified back pain laterality, with sciatica presence unspecified M54.5 [place] [address] 82184- 0242 Sep, Low back pain, unspecified back pain laterality, with sciatica presence unspecified M54.5 [facility] WALK [facility] CARE [facility] [address] [address] -[address]690 Sep, Fever R50.9 and URI, acute J06.9 [place] [address] 45941- 4136 Aug, [place] [address] 84908- 3413 Aug, Low back pain, unspecified back pain laterality, with sciatica presence unspecified M54.5 [place] [address] 98439- 6659 Jul, Low back pain, unspecified back pain laterality, with sciatica presence unspecified M54.5 [facility] WALK IN [place] [address] [address]29 15 Jul, 2017 Nausea R11.0 ; Fever and chills R50.9 ; UTI symptoms R39.9 and Hematuria, unspecified type R31.9 [place] [address] 01079- 6505 Jul, [place] [id number] [place] [address] 63029- 6411 Jun, Low back pain, unspecified back pain laterality, with sciatica presence unspecified M54.5 [place] [id number] [place] [address] 33108- 3237 Jun, BMI 31.0-31.9,adult Z68.31 [place] [address] 51100- 7958 Jun, Neuropathy G62.9 [place] [address] 94209- 9100 Jun, Low back pain, unspecified back pain laterality, with sciatica presence unspecified M54.5 [place] [address] 28216- 0537 Jun, Encounter for immunization Z23 [place] [address] 88223- 7447 Jun, BMI 31.0-31.9,adult Z68.31 [place] [address] 92271- 4074 Jun, Low back pain, unspecified back pain laterality, with sciatica presence unspecified M54.5 [place] [id number] [place] [address] 40732- 0611 May, Low back pain, unspecified back pain laterality, with sciatica presence unspecified M54.5 ; Other chronic pain G89.29 ; Plantar fasciitis M72.2 ; Rheumatoid arthritis, involving unspecified site, unspecified rheumatoid factor presence M06.9 and History of alcohol abuse Z87.898 [place] [id number] [place] [address] 79863- 4307 May, Anxiety F41.9 and Low back pain, unspecified back pain laterality, with sciatica presence unspecified M54.5 [place] [address] 33066- 0907 11 Apr, 2017 Anxiety F41.9 and Low back pain, unspecified back pain laterality, with sciatica presence unspecified M54.5 [place] [address] 75042- 5684 18 Mar, 2017 Acute right-sided low back pain without sciatica M54.5 ; Rash R21 ; Right flank pain R10.9 ; Lipid screening Z13.220 ; Other chronic pain G89.29 ; 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 ; Postoperative hypothyroidism E89.0 and Breast cancer screening Z12.39 [place] [address] 71322- 6279 14 Mar, 2017 Anxiety F41.9 and Low back pain, unspecified back pain laterality, with sciatica presence unspecified M54.5 [place] [address] 96462- 3724 13 Mar, 2017 Acute right-sided low back pain without sciatica M54.5 [place] [address] 70677- 6512 07 Mar, 2017 Anxiety F41.9 [place] [address] 67946- 4115 28 Feb, 2017 Right flank pain R10.9 and Anxiety F41.9 [place] [address] 74357- 1780 16 Feb, 2017 BMI 31.0-31.9,adult Z68.31 [place] [address] 63833- 1930 16 Feb, 2017 Low back pain, unspecified back pain laterality, with sciatica presence unspecified M54.5 and Anxiety F41.9 [facility] WALK IN CARE [address] 25731 -0509 January, Abscess of toe of right foot L02.611 and Other atopic dermatitis L20.89 [place] [address] 94052- 7208 January, Low back pain, unspecified back pain laterality, with sciatica presence unspecified M54.5 and Anxiety F41.9 [place] [address] [place] [id number]- 0130 Dec, Anxiety F41.9 and Low back pain, unspecified back pain laterality, with sciatica presence unspecified M54.5 [facility] WALK IN [facility] [address] 24278 -7897 Dec, Scabies B86 [place] [address] 91698- 5591 Nov, Rash R21 ; Other chronic pain G89.29 ; 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 ; Postoperative hypothyroidism E89.0 ; Breast cancer screening Z12.39 and Lipid screening Z13.220 [place] [address] 89689- 6646 Nov, Anxiety F41.9 and Low back pain, unspecified back pain laterality, with sciatica presence unspecified M54.5 [place] [address] 04789- 1751 Oct, Anxiety F41.9 and Low back pain, unspecified back pain laterality, with sciatica presence unspecified M54.5 [place] [address] 94532- 8772 Sep, Anxiety F41.9 and Low back pain, unspecified back pain laterality, with sciatica presence unspecified M54.5 [place] [address] 13437- 6829 Sep, Anxiety F41.9 [place] [address] 85210- 4516 Sep, Gastro-esophageal reflux disease without esophagitis K21.9 [facility] [address] [id number] Sep, Dental examination Z01.20 [place] [id number] [place] [address] 98030- 6720 Sep, Low back pain, unspecified back pain laterality, with sciatica presence unspecified M54.5 and Postoperative hypothyroidism E89.0 [place] [id number] [place] [address] 72116- 6059 Aug, Anxiety F41.9 [place] [id number] [place] [address] 06937- 0428 Aug, [place] [address] 86599- 6025 Aug, Low back pain, unspecified back pain laterality, with sciatica presence unspecified M54.5 ; Other chronic pain G89.29 ; Thyroid cancer C73 and Postoperative hypothyroidism E89.0 [place] [id number] [place] [address] 23435- 4545 Jul, [place] [address] 85296- 3120 Jul, Anxiety F41.9 [place] [id number] [place] [address] 38304- 1597 Jul, [place] [id number] [place] [address] 95574- 2380 Jul, BMI 29.0-29.9,adult Z68.29 [place] [id number] [place] [address] 87071- 4336 Jul, [place] [id number] [place] [address] 25416- 6179 Jul, BMI 30.0-30.9,adult Z68.30 [place] [id number] [place] [address] 40585- 6614 Jul, Low back pain, unspecified back pain laterality, with sciatica presence unspecified M54.5 and Anxiety F41.9 [place] [id number] [place] [address] 07437- 8432 Jun, 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 [facility] [id number] [place] [address] 50067- 3651 17 Jun, 2016 BMI 30.0-30.9,adult Z68.30 [facility] [address] 76671- 1939 14 Jun, 2016 [facility] [address] 869637- 2356 Jun, 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 ; Dysthymia F34.1 ; Encounter for immunization Z23 and Other chronic pain G89.29 [place] [address] 354633- 0993 06 Jun, 2016 Low back pain, unspecified back pain laterality, with sciatica presence unspecified M54.5 [place] [address] 75929- 0017 Jun, BMI 30.0-30.9,adult Z68.30 [facility] [address] 50427- 1864 Jun, Anxiety F41.9 [place] [address] 29267- 1646 May, 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 [facility] [id number] [place] [address] 18473- 3907 May, Constipation, unspecified constipation type K59.00 [facility] [address] 83446- 9979 08 May, 2016 Low back pain, unspecified back pain laterality, with sciatica presence unspecified M54.5 [facility] [address] 51820- 4513 May, [facility] [address] 04306- 5480 07 May, 2016 Constipation, unspecified constipation type K59.00 [facility] [id number] [place] [address] 12853- 4388 May, Anxiety F41.9 [place] [address] 29735- 1924 Apr, BMI 31.0-31.9,adult Z68.31 [place] [address] 92546- 6756 Apr, Thyroid goiter E04.9 [place] [address] 87063- 5483 Apr, [place] [address] 19704- 4796 Apr, Low back pain, unspecified back pain laterality, with sciatica presence unspecified M54.5 [place] [address] 91381- 2922 Apr, [place] [address] 95928- 9931 Apr, Constipation, unspecified constipation type K59.00 ; Thyroid nodule E04.1 ; Family history of colon cancer Z80.0 and 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 [place] [address] 28072- 9199 Apr, Anxiety F41.9 [place] [id number] [place] [address] 84738- 2340 Mar, [place] [address] 93609- 6996 Mar, Low back pain, unspecified back pain laterality, with sciatica presence unspecified M54.5 [place] [address] 90161- 1091 Mar, BMI 32.0-32.9,adult Z68.32 [place] [address] 85527- 1540 Feb, Anxiety F41.9 [place] [address] [place] [address] 82478- 5985 30 Feb, 2016 Depression, unspecified depression type F32.9 [place] [id number] [place] [address] 84621- 0426 Feb, BMI 32.0-32.9,adult Z68.32 [place] [id number] [place] [address] 87342- 1012 16 Feb, 2016 Low back pain, unspecified back pain laterality, with sciatica presence unspecified M54.5 [place] [id number] [place] [address] 72127- 1829 Feb, [place] [id number] [place] [address] 54419- 1016 Feb, BMI 32.0-32.9,adult Z68.32 [place] [id number] [place] [address] 50401- 2839 Feb, Anxiety F41.9 [place] [id number] [place] [address] 28892- 0682 January, BMI 32.0-32.9,adult Z68.32 [place] [id number] [place] [address] 07101- 0471 January, Low back pain, unspecified back pain laterality, with sciatica presence unspecified M54.5 ; Other chronic pain G89.29 ; Weight gain R63.5 and Rheumatoid arthritis, involving unspecified site, unspecified rheumatoid factor presence M06.9 [place] [address] [place] [address] 29598- 3029 January, Low back pain, unspecified back pain laterality, with sciatica presence unspecified M54.5 [place] [id number] [place] [address] 27893- 5497 January, BMI 32.0-32.9,adult Z68.32 [place] [id number] [place] [address] 01632- 7439 January, BMI 32.0-32.9,adult Z68.32 [facility] [id number] [place] [address] 07903- 3678 January, BMI 32.0-32.9,adult Z68.32 [facility] [id number] [place] [address] 67999- 8010 Dec, Insomnia G47.00 and Dysthymia F34.1 [facility] [address] 81793- 4399 Dec, [facility] [address] 39814- 6369 Dec, Other chronic pain G89.29 ; Neuropathy G62.9 and Dysthymia F34.1 [facility] [id number] [place] [address] 52928- 1222 Dec, [facility] [id number] [place] [address] 14266- 6592 Nov, [facility] [id number] [place] [address] 72158- 8447 Nov, [facility] [id number] [place] [address] 92873- 5898 Nov, [facility] [id number] [place] [address] 99188- 9500 Oct, [facility] [id number] [place] [address] 66276- 6604 Oct, [facility] [id number] [place] [address] 96926- 8792 Oct, Family history of diabetes mellitus Z83.3 [facility] [id number] [place] [address] 07374- 7644 Oct, [facility] [id number] [place] [address] 72015- 3730 Sep, [facility] [id number] [place] [address] 22124- 2454 Sep, Eye pain, right H57.11 and Other chronic pain G89.29 [facility] [id number] [place] [address] 56782- 4606 Sep, [facility] [id number] [place] [address] 48764- 2993 Sep, [facility] [id number] [place] [address] 43998- 0388 Sep, 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 ; Neuropathy G62.9 ; Low back pain, unspecified back pain laterality, with sciatica presence unspecified M54.5 ; Gastro-esophageal reflux disease without esophagitis K21.9 and Encounter for long-term (current) use of other medications V58.69 [place] [id number] [place] [address] 46842- 5236 Sep, [place] [id number] [place] [address] 59032- 1801 Sep, [place] [address] 71959- 4920 Sep, [place] [id number] [place] [address] 67712- 8519 Sep, [place] [id number] [place] [address] 38493- 5308 Aug, [facility] [id number] [place] [address] 22628- 7008 Aug, Family history of diabetes mellitus Z83.3 [place] [address] 34260- 9398 Aug, [facility] [id number] [place] [address] 92152- 1361 Aug, [facility] [id number] [place] [address] 17748- 2802 Aug, Family history of diabetes mellitus Z83.3 [facility] [address] [place] [address] 38095- 5041 14 Aug, 2015 Weight gain R63.5 ; Edema, unspecified R60.9 ; Family history of diabetes mellitus Z83.3 and Gastroesophageal reflux disease with esophagitis K21.0 [facility] [id number] [place] [address] 88911- 4983 14 Aug, 2015 [facility] [id number] [place] [address] 09279- 8990 Aug, [facility] [id number] [place] [address] 98998- 6531 Jul, [place] [id number] [place] [address] 15100- 4693 Jul, [place] [id number] [place] [address] 53216- 5688 Jul, [facility] [id number] [place] [address] 08169- 6652 Jun, [facility] [id number] [place] [address] 75673- 5103 Jun, Nose pain J34.89 ; Encounter for immunization Z23 ; Screening for breast cancer Z12.39 and Encounter for long-term (current) use of other medications V58.69 [place] [id number] [place] [address] 64277- 4807 Jun, [facility] [address] [place] [address] 31770- 6357 May, [place] [id number] [place] [address] 786284- 1641 18 May, 2015 [facility] [id number] [place] [address] 86810- 1190 May, [facility] [id number] [place] [address] 16441- 8764 May, [facility] [address] [facility] [id number] [place] [address]- 7985 May, [facility] [address] [facility] [id number] [place] [address]- 3367 May, [facility] [address] [facility] [id number] [place] [address]- 3201 May, [facility] [address] [facility] [id number] [place] [address]- 2952 Apr, [facility] [address] [facility] [id number] [place] [address]- 1552 Apr, [facility] [address] [facility] [id number] [place] [address]- 5520 Apr, [facility] [id number] [place] [address]- 0441 Mar, [facility] [id number] [address]- 0874 Mar, [facility] [id number] [address]- 2171 Mar, Lesion of left shoulder 709.9 [facility] [id number] [address]- 8387 Mar, [facility] [id number] [address]- 8480 Mar, [facility] [id number] [address]- 9321 Mar, [facility] [id number] [address]- 5751 Feb, [facility] [id number] [address]- 1786 Feb, [facility] [id number] [address]- 9074 Feb, Unspecified backache 724.5 ; Weight gain 783.1 ; Hypothyroid 244.9 ; Edema 782.3 and Diaphoresis 780.8 [facility] [address] [place] [address]- 8880 18 Feb, 2015 [facility] [id number] [place] [address]- 5256 10 Feb, 2015 [facility] [id number] [place] [address], [place] [address]- 0874 Feb, [facility] [address] [facility] [id number] [place] [address]- 4108 Feb, [facility] [id number] [place] [address], [place] [address]- 8125 Feb, [facility] [address] [place] [address]- 2874 January, [facility] [id number] [place] [address]- 5752 January, [facility] [address] [address]- 7997 14 Dec, 2014 [facility] [address] [place] [address]- 2209 13 Dec, 2014 [facility] [address] [address]- 9386 16 Nov, 2014 [facility] [address] [address]- 8994 16 Nov, 2014 [facility] [id number] [address]- 5829 16 Nov, 2014 [facility] [address]- 8811 16 Nov, 2014 [facility] [id number] [address]- 4865 16 Nov, 2014 [facility] [address] 3684 16 Nov, 2014 [facility] [place] [facility] [address] [id number] [place] [address]- 1428 Nov, [facility] [place] [facility] [address] [id number] [place] [address]- 5137 Nov, [facility] [place] [facility] [address] [id number] [place] [address]- 8591 Nov, [facility] [place] [facility] [address] [id number] [place] [address]- 8102 Nov, [facility] [place] [facility] [address] [id number] [place] [address]- 2582 Nov, [facility] [place] [facility] [address] [id number] [place] [address]- 6152 Nov, [facility] [place] [facility] [address] [id number] [place] [address]- 8656 Nov, [facility] [place] [facility] [address] [id number] [place] [address]- 5126 Oct, [facility] [place] [facility] [address] [id number] [place] [address]- 9039 Oct, [facility] [place] [facility] [address] [id number] [place] [address]- 7163 Sep, [facility] [place] [facility] [address] [id number] [place] [address]- 4137 Sep, [facility] [place] [facility] [address] [id number] [place] [address]- 2004 Aug, [facility] [place] [facility] [address] [id number] [place] [address]- 5959 Aug, [facility] [place] [facility] [address] [id number] [place] [address]- 6602 Aug, [facility] [place] [facility] [address] [id number] [place] [address] Aug, [facility] [place] [facility] [address] [id number] [place] [address] 17 Aug, 2014 [facility] [place] [facility] [address] [id number] [place] [address] 17 Aug, 2014 [facility] [place] [facility] [address] [id number] [place] [address] Aug, [facility] [place] [facility] [address] [id number] [place] [address] Aug, [facility] [place] [facility] [address] [id number] [place] [address] Aug, [facility] [place] [facility] [address] [id number] [place] [address] Jul, [facility] [place] [facility] [address] [id number] [place] [address] Jul, [facility] [place] [facility] [address] [id number] [place] [address] Jul, [facility] [place] [facility] [address] [id number] [place] [address] Jul, [facility] [place] [facility] [address] [id number] [place] [address] Jul, [facility] [place] [facility] [address] [id number] [place] [address] Jul, [facility] [place] [facility] [address] [id number] [place] [address] Jul, [facility] [place] [facility] [address] [id number] [place] [address] Jul, [facility] [place] [facility] [address] [id number] [place] [address] Jul, [facility] [place] [facility] [address] [id number] [place] [address] Jul, [facility] [place] [facility] [address] [id number] [place] [address] Jun, [facility] [place] [facility] [address] [id number] [place] [address] Jun, [facility] [place] [facility] [address] [id number] [place] [address] Jun, [facility] [place] [facility] [address] [id number] [place] [address] Jun, [facility] [place] [facility] [address] [id number] [place] [address] Jun, [facility] [place] [facility] [address] [id number] [place] [address] Jun, [facility] [place] [facility] [address] [id number] [place] [address] 30 May, 2013 [facility] [place] [facility] [address] [id number] [place] [address] 30 May, 2013 [facility] [place] [facility] [address] [id number] [place] [address] 29 May, 2013 [facility] [place] [facility] [address] [id number] [place] [address] 29 May, 2013 [facility] [place] [facility] [address] [id number] [place] [address] 2936 24 May, 2013 [facility] [place] [facility] [address] [id number] [place] [address] 254 24 May, 2013 [facility] [place] [facility] [address] [id number] [place] [address] 9419 22 May, 2013 [facility] [place] [facility] [address] [id number] [place] [address] 2547 22 May, 2013 [facility] [place] [facility] [address] [id number] [place] [address]- 2549 05 Sep, 2013 [facility] [place] [facility] [address] [id number] [place] [address]- 2543 05 Sep, 2013 [facility] [place] [facility] [address] [id number] [place] [address]- 0802 May, [facility] [place] [facility] [address] [id number] [place] [address]- 6377 May, [facility] [place] [facility] [address] [id number] [place] [address]- 0423 Apr, [facility] [place] [facility] [address] [id number] [place] [address]- 0935 Apr, [facility] [place] [facility] [address] [id number] [place] [address]- 5079 Apr, [facility] [place] [facility] [address] [id number] [place] [address]- 7083 Apr, [facility] [place] [facility] [address] [id number] [place] [address]- 6306 Apr, [facility] [place] [facility] [address] [id number] [place] [address]- 6937 Apr, [facility] [place] [facility] [address] [id number] [place] [address]- 5978 Apr, [facility] [place] [facility] [address] [id number] [place] [address]- 6979 Apr, [facility] [place] [facility] [address] [id number] [place] [address]- 8882 Apr, [facility] [place] [facility] [address] [id number] [place] [address]- 0702 Apr, [facility] [place] [facility] [address] [id number] [place] [address]- 1326 Apr, [facility] [place] [facility] [address] [id number] [place] [address]- 7216 Apr, [facility] [place] [facility] [address] [id number] [place] [address]- 6040 Apr, [facility] [place] [facility] [address] [id number] [place] [address]- 3189 Apr, [facility] [place] [facility] [address] [id number] [place] [address]- 4025 Apr, [facility] [place] [facility] [address] [id number] [place] [address]- 8062 Apr, [facility] [place] [facility] [address] [id number] [place] [address]- 4268 Apr, [facility] [place] [facility] [address] [id number] [place] [address]- 8902 Apr, [facility] [place] [facility] [address] [id number] [place] [address]- 9625 Apr, [facility] [place] [facility] [address] [id number] [place] [address]- 1831 Apr, [facility] [place] [facility] [address] [id number] [place] [address]- 4669 Apr, [facility] [place] [facility] [address] [id number] [place] [address]- 8641 Apr, [facility] [place] [facility] [address] [id number] [place] [address]- 7272 Apr, [facility] [place] [facility] [address] [id number] [place] [address]- 0309 Mar, [facility] [place] [facility] [address] [id number] [place] [address]- 2079 Mar, [facility] [place] [facility] [address] [id number] [place] [address]- 7182 Mar, [facility] [place] [facility] [address] [id number] [place] [address]- 7958 Mar, [facility] [place] [facility] [address] [id number] [place] [address]- 5567 Mar, [facility] [place] [facility] [address] [id number] [place] [address]- 5962 Mar, [facility] [place] [facility] [address] [id number] [place] [address]- 0325 Mar, [facility] [place] [facility] [address] [id number] [place] [address]- 9704 17 Mar, 2014 [facility] [place] [facility] [address] [id number] [place] [address]- 3032 Mar, [facility] [place] [facility] [address] [id number] [place] [address]- 8447 Mar, [facility] [place] [facility] [address] [id number] [place] [address]- 8901 Mar, [facility] [place] [facility] [address] [id number] [place] [address]- 9175 Mar, [facility] [place] [facility] [address] [id number] [place] [address]- 0465 Mar, [facility] [place] [facility] [address] [id number] [place] [address]- 7340 Mar, [facility] [place] [facility] [address] [id number] [place] [address]- 4679 Feb, [facility] [place] [facility] [address] [id number] [place] [address]- 4745 Feb, [facility] [place] [facility] [address] [id number] [place] [address]- 0165 Feb, [facility] [place] [facility] [address] [id number] [place] [address]- 1225 Feb, [facility] [place] [facility] [address] [id number] [place] [address]- 9252 Feb, [facility] [place] [facility] [address] [id number] [place] [address]- 4690 Feb, [facility] [place] [facility] [address] [id number] [place] [address]- 7910 Feb, [facility] [place] [facility] [address] [id number] [place] [address]- 4561 Feb, [facility] [place] [facility] [address] [id number] [place] [address]- 9116 Dec, [facility] [place] [facility] [address] [id number] [place] [address]- 8340 Dec, [facility] [place] [facility] [address] [id number] [place] [address]- 2631 Dec, [facility] [place] [facility] [address] [id number] [place] [address]- 9121 Dec, [facility] [place] [facility] [address] [id number] [place] [address]- 4818 Nov, [facility] [place] [facility] [address] [id number] [place] [address]- 9948 Nov, [facility] [place] [facility] [address] [facility] [id number] [place] [address]- 9115 Nov, [facility] [place] [facility] [address] [facility] [id number] [place] [address]- 7557 Nov, [facility] [place] [facility] [address] [facility] [id number] [place] [address]- 8382 Nov, [facility] [place] [facility] [address] [facility] [id number] [place] [address]- 5995 Nov, [facility] [place] [facility]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
--- OUTSIDE RECORDS SUMMARY | 2018-06-07 11:43 | XMS REPORT ---
Author Author ELISEO BENDER [facility] Address [address] [place] [address] Care Team Providers Care Director Of Volunteer Services Name Role Phone ELISEO BENDER Unavailable PROBLEMS Type Condition ICD9-CM Code [id number] Code Onset Dates Condition Status SNOMED Code Problem Insomnia G47.00 Active 473341281 Problem Chest pain, unspecified type R07.9 Active 02500541 Problem Rheumatoid arthritis, involving unspecified site, unspecified rheumatoid factor presence M06.9 Active 04693962 Problem Other atopic dermatitis L20.89 Active 77383734 Problem Postoperative hypothyroidism E89.0 Active 09110422 Problem Depression, unspecified depression type F32.9 Active 27380451 Problem Anxiety F41.9 Active 14307094 Problem Thyroid cancer C73 Active 327961189 Problem BMI 30.0-30.9,adult Z68.30 Active 991532888 Problem 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 Active 62696296 Problem Gastro-esophageal reflux disease without esophagitis K21.9 Active 497037915 Problem Low back pain, unspecified back pain laterality, with sciatica presence unspecified M54.5 Active 411479635 Problem Other chronic pain G89.29 Active 06678379 Problem Neuropathy G62.9 Active 051525064 Problem Dysthymia F34.1 Active 20060078 ALLERGIES Unknown Allergies SOCIAL HISTORY No smoking Hx information available PLAN OF CARE VITAL SIGNS MEDICATIONS Medication Instructions Dosage Frequency Start Date End Date Duration Status Omeprazole 20 MG Orally twice a day 1 capsule 12h 17 Sep, 2016 90 days Active RESULTS No Results PROCEDURES No Known procedures IMMUNIZATIONS No Known Immunizations
--- OUTSIDE RECORDS SUMMARY | 2018-06-07 11:44 | XMS REPORT ---
Author Author ELISEO BENDER [facility] Address [address] [place] [address] Care Team Providers Care Screening Technician Name Role Phone ELISEO BENDER Unavailable PROBLEMS Type Condition ICD9-CM Code [id number] Code Onset Dates Condition Status SNOMED Code Problem Dysthymia F34.1 Active 64476744 Problem Rheumatoid arthritis, involving unspecified site, unspecified rheumatoid factor presence M06.9 Active 74508327 Problem Insomnia G47.00 Active 776574388 Problem Thyroid cancer C73 Active 530043688 Problem Postoperative hypothyroidism E89.0 Active 11568002 Problem Anxiety F41.9 Active 97575179 Problem Chest pain, unspecified type R07.9 Active 36859022 Problem BMI 30.0-30.9,adult Z68.30 Active 993429377 Problem Depression, unspecified depression type F32.9 Active 47407976 Problem Rheumatoid arthritis 714.0 Active 69474626 Problem Unspecified hereditary and idiopathic peripheral neuropathy 356.9 Active 408154319 Problem Other malaise and fatigue 780.79 Active 027982032 Problem Low back pain, unspecified back pain laterality, with sciatica presence unspecified M54.5 Active 418639455 Problem Neuropathy G62.9 Active 020916473 Problem Unspecified backache 724.5 Active 482271655 Problem 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 Active 97229381 Problem Gastro-esophageal reflux disease without esophagitis K21.9 Active 458072814 Problem Other chronic pain G89.29 Active 79826285 ALLERGIES Unknown Allergies SOCIAL HISTORY No smoking Hx information available PLAN OF CARE VITAL SIGNS MEDICATIONS Medication Instructions Dosage Frequency Start Date End Date Duration Status Levothyroxine Sodium 150 MCG Orally Once a day 1 tablet on an empty stomach in the morning 24h Active RESULTS No Results PROCEDURES No Known procedures IMMUNIZATIONS No Known Immunizations
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
--- OUTSIDE RECORDS SUMMARY | 2018-06-07 11:44 | XMS REPORT ---
Author Author LAITHJARET POWER [facility] Address [address] [place] [address] Care Team Providers Care Nurse Extern Name Role Phone JARET OZUNA Unavailable PROBLEMS Type Condition ICD9-CM Code [id number] Code Onset Dates Condition Status SNOMED Code Problem Insomnia G47.00 Active 490733221 Problem Chest pain, unspecified type R07.9 Active 73958536 Problem Rheumatoid arthritis, involving unspecified site, unspecified rheumatoid factor presence M06.9 Active 32600625 Problem BMI 31.0-31.9,adult Z68.31 Active 832424806 Problem Other atopic dermatitis L20.89 Active 40331352 Problem Depression, unspecified depression type F32.9 Active 05330224 Problem Anxiety F41.9 Active 48051798 Problem Thyroid cancer C73 Active 258282537 Problem Postoperative hypothyroidism E89.0 Active 05481554 Problem 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 Active 96418314 Problem Gastro-esophageal reflux disease without esophagitis K21.9 Active 020563949 Problem Low back pain, unspecified back pain laterality, with sciatica presence unspecified M54.5 Active 455155248 Problem Other chronic pain G89.29 Active 39008975 Problem Neuropathy G62.9 Active 168998442 Problem Dysthymia F34.1 Active 67131789 ALLERGIES No Information ENCOUNTERS Encounter Location Date Diagnosis [facility] [address] [facility] [id number] [address] Mar, [facility] [address], [place] [address] January, [facility] [address] [address] January, [facility] [id number] [address] January, Low back pain, unspecified back pain laterality, with sciatica presence unspecified M54.5 [place] [id number] [place] [address] 08818- 5625 January, [facility] [id number] [place] [address] 091207- 6272 Dec, Low back pain, unspecified back pain laterality, with sciatica presence unspecified M54.5 [place] [address] 39203- 5306 Nov, Low back pain, unspecified back pain laterality, with sciatica presence unspecified M54.5 [place] [address] 22488- 2575 Nov, [place] [address] 42567- 8361 Nov, Low back pain, unspecified back pain laterality, with sciatica presence unspecified M54.5 ; Other chronic pain G89.29 ; Rheumatoid arthritis, involving unspecified site, unspecified rheumatoid factor presence M06.9 and Dysthymia F34.1 [place] [address] 09706- 7785 Oct, Low back pain, unspecified back pain laterality, with sciatica presence unspecified M54.5 [place] [id number] [place] [address] 16127- 4665 Sep, Low back pain, unspecified back pain laterality, with sciatica presence unspecified M54.5 [facility] [id number] [place] [address] 24025 -0319 Sep, Fever R50.9 and URI, acute J06.9 [facility] [id number] [place] [address] 85881- 6348 Aug, [facility] [address] 06427- 2935 Aug, Low back pain, unspecified back pain laterality, with sciatica presence unspecified M54.5 [facility] [address] [place] [address] 01969- 3139 Jul, Low back pain, unspecified back pain laterality, with sciatica presence unspecified M54.5 [facility] [id number] [place] [address] 38826 -1800 15 Jul, 2017 Nausea R11.0 ; Fever and chills R50.9 ; UTI symptoms R39.9 and Hematuria, unspecified type R31.9 [facility] [id number] [place] [address] 67731- 9846 Jul, [facility] [address] 69467- 1508 Jun, Low back pain, unspecified back pain laterality, with sciatica presence unspecified M54.5 [facility] [id number] [place] [address] 83537- 7985 Jun, BMI 31.0-31.9,adult Z68.31 [facility] [id number] [place] [address] 22070- 2125 Jun, Neuropathy G62.9 [place] [id number] [place] [address] 09226- 8926 Jun, Low back pain, unspecified back pain laterality, with sciatica presence unspecified M54.5 [facility] [id number] [place] [address] 61868- 3816 Jun, Encounter for immunization Z23 [facility] [id number] [place] [address] 03048- 4328 Jun, BMI 31.0-31.9,adult Z68.31 [facility] [id number] [place] [address] 36670- 6189 Jun, Low back pain, unspecified back pain laterality, with sciatica presence unspecified M54.5 [facility] [id number] [place] [address] 55026- 2850 May, Low back pain, unspecified back pain laterality, with sciatica presence unspecified M54.5 ; Other chronic pain G89.29 ; Plantar fasciitis M72.2 ; Rheumatoid arthritis, involving unspecified site, unspecified rheumatoid factor presence M06.9 and History of alcohol abuse Z87.898 [place] [id number] [place] [address] 19065- 9807 08 May, 2017 Anxiety F41.9 and Low back pain, unspecified back pain laterality, with sciatica presence unspecified M54.5 [place] [address] 92017- 6986 Apr, Anxiety F41.9 and Low back pain, unspecified back pain laterality, with sciatica presence unspecified M54.5 [place] [address] 73500- 1496 18 Mar, 2017 Acute right-sided low back pain without sciatica M54.5 ; Rash R21 ; Right flank pain R10.9 ; Lipid screening Z13.220 ; Other chronic pain G89.29 ; 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 ; Postoperative hypothyroidism E89.0 and Breast cancer screening Z12.39 [place] [address] 57104- 3129 14 Mar, 2017 Anxiety F41.9 and Low back pain, unspecified back pain laterality, with sciatica presence unspecified M54.5 [place] [id number] [place] [address] 56365- 3471 13 Mar, 2017 Acute right-sided low back pain without sciatica M54.5 [place] [id number] [place] [address] 40471- 0361 07 Mar, 2017 Anxiety F41.9 [place] [address] 19300- 8063 28 Feb, 2017 Right flank pain R10.9 and Anxiety F41.9 [place] [address] 13845- 0497 16 Feb, 2017 BMI 31.0-31.9,adult Z68.31 [place] [id number] [place] [address] 57107- 2256 Feb, Low back pain, unspecified back pain laterality, with sciatica presence unspecified M54.5 and Anxiety F41.9 [facility] [address] 21339 -[address]36 January, Abscess of toe of right foot L02.611 and Other atopic dermatitis L20.89 [place] [address] 15402- 5707 January, Low back pain, unspecified back pain laterality, with sciatica presence unspecified M54.5 and Anxiety F41.9 [place] [address] 24946- 7915 Dec, Anxiety F41.9 and Low back pain, unspecified back pain laterality, with sciatica presence unspecified M54.5 [facility] [place] [address] 28215 -0496 Dec, Scabies B86 [place] [address] 99604- 4992 Nov, Rash R21 ; Other chronic pain G89.29 ; 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 ; Postoperative hypothyroidism E89.0 ; Breast cancer screening Z12.39 and Lipid screening Z13.220 [place] [address] 72616- 6861 Nov, Anxiety F41.9 and Low back pain, unspecified back pain laterality, with sciatica presence unspecified M54.5 [place] [address] 50643- 2560 Oct, Anxiety F41.9 and Low back pain, unspecified back pain laterality, with sciatica presence unspecified M54.5 [place] [address] 91860- 6033 Sep, Anxiety F41.9 and Low back pain, unspecified back pain laterality, with sciatica presence unspecified M54.5 [facility] [address] 59537- 4480 Sep, Anxiety F41.9 [facility] [id number] [place] [address] 99926- 4367 Sep, Gastro-esophageal reflux disease without esophagitis K21.9 [facility] [id number] [place] [address] [id number] 09 Sep, 2016 Dental examination Z01.20 [facility] [address] 08047- 7839 02 Sep, 2016 Low back pain, unspecified back pain laterality, with sciatica presence unspecified M54.5 and Postoperative hypothyroidism E89.0 [facility] [address] 97928- 9444 Aug, Anxiety F41.9 [facility] [address] 53011- 6432 Aug, [facility] [address] 34547- 7483 Aug, Low back pain, unspecified back pain laterality, with sciatica presence unspecified M54.5 ; Other chronic pain G89.29 ; Thyroid cancer C73 and Postoperative hypothyroidism E89.0 [facility] [id number] [place] [address] 20591- 3211 Jul, [facility] [id number] [place] [address] 35815- 8572 Jul, Anxiety F41.9 [facility] [address] 32610- 1754 Jul, [facility] [id number] [place] [address] 28731- 6100 Jul, BMI 29.0-29.9,adult Z68.29 [facility] [address] [place] [address]- 5130 Jul, [place] [id number] [place] [address] 53584- 6994 Jul, BMI 30.0-30.9,adult Z68.30 [place] [id number] [place] [address] 03955- 7126 Jul, Low back pain, unspecified back pain laterality, with sciatica presence unspecified M54.5 and Anxiety F41.9 [place] [address] 29374- 8428 Jun, 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 [place] [address] 04247- 3320 Jun, BMI 30.0-30.9,adult Z68.30 [place] [address] 21557- 5263 Jun, [place] [address] 25075- 1116 Jun, 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 ; Dysthymia F34.1 ; Encounter for immunization Z23 and Other chronic pain G89.29 [place] [id number] [place] [address] 30648- 2095 Jun, Low back pain, unspecified back pain laterality, with sciatica presence unspecified M54.5 [place] [id number] [place] [address] 18055- 5348 Jun, BMI 30.0-30.9,adult Z68.30 [place] [id number] [place] [address] 92598- 1843 Jun, Anxiety F41.9 [place] [address] 22367- 2210 May, 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 [place] [id number] [place] [address] 63033- 5676 May, Constipation, unspecified constipation type K59.00 [place] [id number] [place] [address] 04979- 8140 May, Low back pain, unspecified back pain laterality, with sciatica presence unspecified M54.5 [place] [id number] [place] [address] 03904- 9300 May, [place] [address] 66960- 1086 May, Constipation, unspecified constipation type K59.00 [place] [address] 98284- 1322 May, Anxiety F41.9 [place] [address] 74811- 1976 Apr, BMI 31.0-31.9,adult Z68.31 [place] [address] 72657- 1562 Apr, Thyroid goiter E04.9 [place] [address] 12579- 8210 Apr, [place] [address] 08350- 0583 Apr, Low back pain, unspecified back pain laterality, with sciatica presence unspecified M54.5 [place] [id number] [place] [address] 45248- 6390 Apr, [place] [address] 31508- 8255 Apr, Constipation, unspecified constipation type K59.00 ; Thyroid nodule E04.1 ; Family history of colon cancer Z80.0 and 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 [place] [id number] [place] [address] 85748- 6260 Apr, Anxiety F41.9 [place] [address] 23151- 1271 Mar, [facility] [address] [place] [address] 15934- 2525 Mar, Low back pain, unspecified back pain laterality, with sciatica presence unspecified M54.5 [facility] [id number] [place] [address] 02269- 1978 Mar, BMI 32.0-32.9,adult Z68.32 [place] [id number] [place] [address] 77719- 5145 Feb, Anxiety F41.9 [place] [id number] [place] [address] 28442- 9691 Feb, Depression, unspecified depression type F32.9 [place] [id number] [place] [address] 70031- 4532 Feb, BMI 32.0-32.9,adult Z68.32 [place] [id number] [place] [address] 45441- 1734 Feb, Low back pain, unspecified back pain laterality, with sciatica presence unspecified M54.5 [place] [id number] [place] [address] 05910- 9802 Feb, [place] [id number] [place] [address] 48509- 0402 Feb, BMI 32.0-32.9,adult Z68.32 [place] [id number] [place] [address] 10085- 7931 Feb, Anxiety F41.9 [facility] [id number] [place] [address] 01373- 8247 January, BMI 32.0-32.9,adult Z68.32 [place] [address] [place] [address] 94887- 8625 January, Low back pain, unspecified back pain laterality, with sciatica presence unspecified M54.5 ; Other chronic pain G89.29 ; Weight gain R63.5 and Rheumatoid arthritis, involving unspecified site, unspecified rheumatoid factor presence M06.9 [place] [address] 40277- 8503 January, Low back pain, unspecified back pain laterality, with sciatica presence unspecified M54.5 [place] [address] 77199- 7694 January, BMI 32.0-32.9,adult Z68.32 [place] [address] 27701- 3178 January, BMI 32.0-32.9,adult Z68.32 [place] [address] 46535- 8407 January, BMI 32.0-32.9,adult Z68.32 [place] [address] 63387- 3248 Dec, Insomnia G47.00 and Dysthymia F34.1 [place] [address] 91961- 3515 Dec, [place] [address] 58956- 7302 Dec, Other chronic pain G89.29 ; Neuropathy G62.9 and Dysthymia F34.1 [place] [id number] [place] [address] 51493- 5941 Dec, [place] [id number] [place] [address] 15906- 6722 Nov, [place] [address] 89124- 8583 Nov, [place] [id number] [place] [address] 87415- 5901 Nov, [place] [address] 44152- 7617 Oct, [facility] [id number] [place] [address] 25988- 1797 Oct, [facility] [id number] [place] [address] 68665- 8210 Oct, Family history of diabetes mellitus Z83.3 [facility] [id number] [place] [address] 66637- 0886 Oct, [facility] [id number] [place] [address] 93937- 9427 Sep, [facility] [address] 06134- 0654 Sep, Eye pain, right H57.11 and Other chronic pain G89.29 [place] [address] 67672- 8184 Sep, [facility] [id number] [place] [address] 48639- 8221 Sep, [facility] [id number] [place] [address] 15043- 7677 Sep, 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 ; Neuropathy G62.9 ; Low back pain, unspecified back pain laterality, with sciatica presence unspecified M54.5 ; Gastro-esophageal reflux disease without esophagitis K21.9 and Encounter for long-term (current) use of other medications V58.69 [place] [id number] [place] [address] 85018- 5676 Sep, [facility] [id number] [place] [address] 78913- 5334 Sep, [facility] [id number] [place] [address] 18497- 1321 Sep, [facility] [id number] [place] [address] 26059- 4960 Sep, [facility] [id number] [place] [address] 22424- 2185 Aug, [facility] [address], [place] [address]- 7442 Aug, Family history of diabetes mellitus Z83.3 [facility] [address]- 5799 Aug, [place] [id number] [place] [address] 07040- 3740 Aug, [facility] [address] [place] [address] 44124- 4741 16 Aug, 2015 Family history of diabetes mellitus Z83.3 [place] [id number] [place] [address] 387930- 1745 Aug, Weight gain R63.5 ; Edema, unspecified R60.9 ; Family history of diabetes mellitus Z83.3 and Gastroesophageal reflux disease with esophagitis K21.0 [place] [address] [place] [address] 92429- 7220 Aug, [place] [address] [place] [address] 03443- 3891 Aug, [place] [address] [place] [address] 17080- 9551 Jul, [place] [address], [place] [address]- 1051 Jul, [place] [address], [place] [address]- 7004 Jul, [place] [address] [place] [address] 90881- 3529 Jun, [place] [id number] [place] [address] 11125- 4607 Jun, Nose pain J34.89 ; Encounter for immunization Z23 ; Screening for breast cancer Z12.39 and Encounter for long-term (current) use of other medications V58.69 [place] [id number] [place] [address]- 5640 06 Jun, 2014 [facility] [address] [id number] [place] [address]- 8901 23 May, 2014 [facility] [address] [id number] [place] [address]- 6804 18 May, 2014 [facility] [address] [id number] [place] [address]- 3911 17 May, 2014 [facility] [address] [id number] [place] [address]- 9624 17 May, 2014 [facility] [address] [id number] [place] [address]- 6535 10 May, 2014 [facility] [address] [id number] [place] [address]- 3674 May, 2014 [facility] [address] [facility] [id number] [place] [address]- 7879 May, 2014 [facility] [address] [facility] [id number] [place] [address]- 6873 Apr, [facility] [address] [facility] [id number] [place] [address]- 1536 Apr, [facility] [address] [facility] [id number], [place] [address]- 7908 Apr, [facility] [address] [facility] [id number] [place] [address]- 2569 Mar, [facility] [address] [facility] [id number], [place] [address]- 1476 Mar, [facility] [address] [facility] [id number] [place] [address]- 9219 Mar, Lesion of left shoulder 709.9 [facility] [address] [id number], [place] [address]- 8448 Mar, [facility] [address] [facility] [id number], [place] [address]- 6007 Mar, [facility] [id number] [address]- 7708 Mar, [facility] [address], [place] [address]- 4748 Feb, [facility] [address], [place] [address]- 1004 Feb, [facility] [id number] [place] [address] 00288- 2183 Feb, Unspecified backache 724.5 ; Weight gain 783.1 ; Hypothyroid 244.9 ; Edema 782.3 and Diaphoresis 780.8 [facility] [address], [place] [address]- 9978 Feb, [facility] [address], [place] [address]- 3942 Feb, [facility] [address], [place] [address]- 2514 Feb, [facility] [address], [place] [address]- 7833 Feb, [facility] [address], [place] [address]- 2432 Feb, [facility] [address], [place] [address]- 2011 January, [facility] [address], [place] [address]- 5655 January, [facility] [address], [place] [address]- 6495 14 Dec, 2014 [facility] [address], [place] [address]- 6820 Dec, [facility] [place] [facility] [id number] [address]- 0139 Nov, [facility] [address] [place] [address]- 8086 16 Nov, 2014 [facility] [place] [facility] [address] [id number] [place] [address]- 1712 16 Nov, 2014 [facility] [place] [facility] [address] [id number] [place] [address]- 1536 16 Nov, 2014 [facility] [place] [facility] [address] [id number] [place] [address] 16 Nov, 2014 [facility] [place] [facility] [address] [id number] [place] [address] 16 Nov, 2014 [facility] [place] [facility] [address] [id number] [place] [address]- [address] 12 Nov, 2014 [facility] [place] [facility] [address] [id number] [place] [address] 12 Nov, 2014 [facility] [place] [facility] [address] [id number] [place] [address]- [address] 11 Nov, 2014 [facility] [place] [facility] [address] [id number] [place] [address]- [address] 11 Nov, 2014 [facility] [place] [facility] [address] [id number] [place] [address] 05 Nov, 2014 [facility] [place] [facility] [address] [id number] [place] [address] Nov, [facility] [place] [facility] [address] [id number] [place] [address] Nov, [facility] [place] [facility] [address] [id number] [place] [address] Oct, [facility] [place] [facility] [address] [id number] [place] [address] Oct, [facility] [place] [facility] [address] [id number] [place] [address] Sep, [facility] [place] [facility] [address] [id number] [place] [id number] Sep, [facility] [place] [facility] [address] [id number] [place] [address] Aug, [facility] [place] [facility] [address] [id number] [place] [address] Aug, [facility] [place] [facility] [address] [id number] [place] [address] Aug, [facility] [place] [facility] [address] [id number] [place] [address] Aug, [facility] [place] [facility] [address] [id number] [place] [address] Aug, [facility] [place] [facility] [address] [id number] [place] [address]- [address] Aug, [facility] [place] [facility] [address] [id number] [place] [address] Aug, [facility] [place] [facility] [address] [id number] [place] [address] Aug, [facility] [place] [facility] [address] [id number] [place] [address] Aug, [facility] [place] [facility] [address] [id number] [place] [address] Jul, [facility] [place] [facility] [address] [id number] [place] [address] Jul, [facility] [place] [facility] [address] [id number] [place] [address] 8206 Jul, [facility] [place] [facility] [address] [id number] [place] [address] 8738 Jul, [facility] [place] [facility] [address] [id number] [place] [address] 2492 Jul, [facility] [place] [facility] [address] [id number] [place] [address] 4417 Jul, [facility] [place] [facility] [address] [id number] [place] [address]- 9665 Jul, [facility] [place] [facility] [address] [id number] [place] [address]- 7744 Jul, [facility] [place] [facility] [address] [id number] [place] [address]- 6341 Jul, [facility] [place] [facility] [address] [id number] [place] [address]- 1013 Jul, [facility] [place] [facility] [address] [id number] [place] [address] 6910 Jun, [facility] [place] [facility] [address] [id number] [place] [address]- 5298 Jun, [facility] [place] [facility] [address] [id number] [place] [address]- 9081 Jun, [facility] [place] [facility] [address] [id number] [place] [address]- 6447 Jun, [facility] [place] [facility] [address] [id number] [place] [address]- 9585 Jun, [facility] [place] [facility] [address] [id number] [place] [address]- 7246 Jun, [facility] [place] [facility] [address] [id number] [place] [address]- 9484 30 May, 2014 [facility] [place] [facility] [address] [id number] [place] [address]- 5753 30 May, 2013 [facility] [place] [facility] [address] [id number], [place] [address] 2540 29 May, 2013 [facility] [place] [facility] [address] [id number] [place] [address]- 7018 29 May, 2013 [facility] [place] [facility] [address] [id number] [place] [address]- 8438 24 May, 2013 [facility] [place] [facility] [address] [id number] [place] [address]- 6619 24 May, 2013 [facility] [place] [facility] [address] [id number] [place] [address]- 3760 22 May, 2013 [facility] [place] [facility] [address] [id number] [place] [address]- 6336 22 May, 2013 [facility] [place] [facility] [address] [id number] [place] [address] 2546 05 May, 2013 [facility] [place] [facility] [address] [id number] [place] [address] 2546 05 May, 2013 [facility] [place] [facility] [address] [id number] [place] [address] 2549 May, 2013 [facility] [place] [facility] [address] [id number] [place] [address]- 4298 May, 2013 [facility] [place] [facility] [address] [id number] [place] [address]- 4863 Apr, [facility] [place] [facility] [address] [id number] [place] [address]- 0519 Apr, [facility] [place] [facility] [address] [id number] [place] [address]- 7221 Apr, [facility] [place] [facility] [address] [id number] [place] [address]- 6795 Apr, [facility] [place] [facility] [address] [id number] [place] [address]- 1540 Apr, [facility] [place] [facility] [address] [id number] [place] [address]- 4709 Apr, [facility] [place] [facility] [address] [id number] [place] [address] 2545 Apr, [facility] [place] [facility] [address] [id number] [place] [address]- 2546 Apr, [facility] [place] [facility] [address] [id number] [place] [address]- 2547 Apr, [facility] [place] [facility] [address] [id number] [place] [address]- 8504 Apr, [facility] [place] [facility] [address] [id number] [place] [address]- 2938 Apr, [facility] [place] [facility] [address] [id number] [place] [address]- 2683 Apr, [facility] [place] [facility] [address] [id number] [place] [address]- 6753 Apr, [facility] [place] [facility] [address] [id number] [place] [address]- 7543 Apr, [facility] [place] [facility] [address] [id number] [place] [address]- 8154 Apr, [facility] [place] [facility] [address] [id number] [place] [address]- 6883 Apr, [facility] [place] [facility] [address] [id number] [place] [address]- 1254 Apr, [facility] [place] [facility] [address] [id number] [place] [address]- 2083 Apr, [facility] [place] [facility] [address] [id number] [place] [address]- 1852 Apr, [facility] [place] [facility] [address] [id number] [place] [address]- 0281 Apr, [facility] [place] [facility] [address] [id number], [place] [address]- 18[address] Apr, [facility] [place] [facility] [address] [id number], [place] [address]- 49[address] Apr, [facility] [place] [facility] [address] [id number] [place] [address]- 8629 Apr, [facility] [place] [facility] [address] [id number] [place] [address]- 0688 Mar, [facility] [place] [facility] [address] [id number] [place] [address]- 1349 Mar, [facility] [place] [facility] [address] [id number] [place] [address]- 2438 30 Mar, 2014 [facility] [place] [facility] [address] [id number] [place] [address]- 2518 30 Mar, 2014 [facility] [place] [facility] [address] [id number] [place] [address]- 5926 Mar, [facility] [place] [facility] [address] [id number] [place] [address]- 2706 Mar, [facility] [place] [facility] [address] [id number] [place] [address]- 2895 Mar, [facility] [place] [facility] [address] [id number] [place] [address]- 9858 Mar, [facility] [place] [facility] [address] [id number] [place] [address]- 6540 Mar, [facility] [place] [facility] [address] [id number] [place] [address]- 7644 Mar, [facility] [place] [facility] [address] [id number] [place] [address]- 1724 Mar, [facility] [place] [facility] [address] [id number] [place] [address]- 5962 Mar, [facility] [place] [facility] [address] [id number] [place] [address]- 7089 Mar, [facility] [place] [facility] [address] [id number] [place] [address]- 9409 Mar, [facility] [place] [facility] [address] [id number] [place] [address]- 9128 Feb, [facility] [place] [facility] [address] [id number] [place] [address]- 4011 Feb, [facility] [place] [facility] [address] [id number] [place] [address]- 2311 Feb, [facility] [place] [facility] [address] [id number] [place] [address]- 8157 Feb, [facility] [place] [facility] [address] [id number] [place] [address]- 7237 Feb, [facility] [place] [facility] [address] [id number] [place] [address]- 6223 Feb, [facility] [place] [facility] [address] [id number] [place] [address]- 8393 Feb, [facility] [place] [facility] [address] [id number] [place] [address]- 8670 Feb, [facility] [place] [facility] [address] [id number] [place] [address]- 4005 Dec, [facility] [place]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
[2018-06-07] MEDS ORDERED: VANCOMYCIN INJECTION 1,000 MG in NS (IVPB) 250 ML IV ONE (11:45)
--- OUTSIDE RECORDS SUMMARY | 2018-06-07 11:45 | XMS REPORT ---
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 Name Role Phone SYLVIE OZUNAHANY Unavailable PROBLEMS Type Condition ICD9-CM Code ODE30-CV Code Onset Dates Condition Status SNOMED Code Problem Insomnia G47.00 Active 713464587 Problem Chest pain, unspecified type R07.9 Active 27933991 Problem Rheumatoid arthritis, involving unspecified site, unspecified rheumatoid factor presence M06.9 Active 84154532 Problem BMI 31.0-31.9,adult Z68.31 Active 886889603 Problem Other atopic dermatitis L20.89 Active 55377584 Problem Depression, unspecified depression type F32.9 Active 69426331 Problem Anxiety F41.9 Active 70842110 Problem Thyroid cancer C73 Active 371229595 Problem Postoperative hypothyroidism E89.0 Active 11329535 Problem 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 Active 61814007 Problem Gastro-esophageal reflux disease without esophagitis K21.9 Active 764047849 Problem Low back pain, unspecified back pain laterality, with sciatica presence unspecified M54.5 Active 647877997 Problem Other chronic pain G89.29 Active 27222807 Problem Neuropathy G62.9 Active 499718772 Problem Dysthymia F34.1 Active 49222933 ALLERGIES No Information ENCOUNTERS Encounter Location Date Diagnosis [facility] [id number], [place] [address] Mar, [facility] [address], [place] [address] January, Low back pain, unspecified back pain laterality, with sciatica presence unspecified M54.5 [facility] [id number], [place] [address] January, [facility] [id number] [place] [address] 33342- 3975 Dec, Low back pain, unspecified back pain laterality, with sciatica presence unspecified M54.5 [facility] [id number] [place] [address] 92666- 6636 Nov, Low back pain, unspecified back pain laterality, with sciatica presence unspecified M54.5 [place] [address] 25451- 4484 Nov, [place] [address] 14501- 2671 Nov, Low back pain, unspecified back pain laterality, with sciatica presence unspecified M54.5 ; Other chronic pain G89.29 ; Rheumatoid arthritis, involving unspecified site, unspecified rheumatoid factor presence M06.9 and Dysthymia F34.1 [place] [address] 65883- 9750 Oct, Low back pain, unspecified back pain laterality, with sciatica presence unspecified M54.5 [facility] [facility] [id number] [place] [address] 64378- 0622 Sep, Low back pain, unspecified back pain laterality, with sciatica presence unspecified M54.5 [facility] [id number] [place] [address]67 -1985 Sep, Fever R50.9 and URI, acute J06.9 [place] [id number] [place] [address] 01117- 1377 Aug, [place] [facility] [id number] [place] [address] 70957- 7457 Aug, Low back pain, unspecified back pain laterality, with sciatica presence unspecified M54.5 [facility] [facility] [id number] [place] [address] 29032- 9762 Jul, Low back pain, unspecified back pain laterality, with sciatica presence unspecified M54.5 [facility] [id number] [place] [address] 94302 -2157 15 Jul, 2017 Nausea R11.0 ; Fever and chills R50.9 ; UTI symptoms R39.9 and Hematuria, unspecified type R31.9 [place] [id number] [place] [address] 72376- 0393 Jul, [place] [address] 34920- 8238 Jun, Low back pain, unspecified back pain laterality, with sciatica presence unspecified M54.5 [place] [address] 95824- 8514 Jun, BMI 31.0-31.9,adult Z68.31 [place] [address] 57032- 2307 Jun, Neuropathy G62.9 [place] [address] 42601- 6144 Jun, Low back pain, unspecified back pain laterality, with sciatica presence unspecified M54.5 [place] [address] 38697- 8574 Jun, Encounter for immunization Z23 [place] [address] 23099- 0608 Jun, BMI 31.0-31.9,adult Z68.31 [place] [address] 76018- 6096 Jun, Low back pain, unspecified back pain laterality, with sciatica presence unspecified M54.5 [place] [address] 35479- 6005 May, Low back pain, unspecified back pain laterality, with sciatica presence unspecified M54.5 ; Other chronic pain G89.29 ; Plantar fasciitis M72.2 ; Rheumatoid arthritis, involving unspecified site, unspecified rheumatoid factor presence M06.9 and History of alcohol abuse Z87.898 [place] [address] 20608- 2596 08 May, 2017 Anxiety F41.9 and Low back pain, unspecified back pain laterality, with sciatica presence unspecified M54.5 [place] [address] 82247- 0217 11 Apr, 2017 Anxiety F41.9 and Low back pain, unspecified back pain laterality, with sciatica presence unspecified M54.5 [place] [address] 60035- 3378 18 Mar, 2017 Acute right-sided low back pain without sciatica M54.5 ; Rash R21 ; Right flank pain R10.9 ; Lipid screening Z13.220 ; Other chronic pain G89.29 ; 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 ; Postoperative hypothyroidism E89.0 and Breast cancer screening Z12.39 [place] [address] 01657- 1312 14 Mar, 2017 Anxiety F41.9 and Low back pain, unspecified back pain laterality, with sciatica presence unspecified M54.5 [place] [address] 05737- 3342 13 Mar, 2017 Acute right-sided low back pain without sciatica M54.5 [place] [address] 61046- 8111 07 Mar, 2017 Anxiety F41.9 [place] [address] 93101- 6205 28 Feb, 2017 Right flank pain R10.9 and Anxiety F41.9 [place] [address] 05873- 2803 16 Feb, 2017 BMI 31.0-31.9,adult Z68.31 [place] [address] 55340- 4909 16 Feb, 2017 Low back pain, unspecified back pain laterality, with sciatica presence unspecified M54.5 and Anxiety F41.9 [facility] [id number] [place] [address] 73583 -9235 January, Abscess of toe of right foot L02.611 and Other atopic dermatitis L20.89 [place] [id number] [place] [address] 72050- 5802 January, Low back pain, unspecified back pain laterality, with sciatica presence unspecified M54.5 and Anxiety F41.9 [place] [address] 60990- 2815 Dec, Anxiety F41.9 and Low back pain, unspecified back pain laterality, with sciatica presence unspecified M54.5 [facility] [id number] [place] [address] 25658 -2599 Dec, Scabies B86 [place] [address] 90167- 1062 Nov, Rash R21 ; Other chronic pain G89.29 ; 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 ; Postoperative hypothyroidism E89.0 ; Breast cancer screening Z12.39 and Lipid screening Z13.220 [place] [address] 21767- 0789 Nov, Anxiety F41.9 and Low back pain, unspecified back pain laterality, with sciatica presence unspecified M54.5 [place] [id number] [place] [address] 35271- 9765 Oct, Anxiety F41.9 and Low back pain, unspecified back pain laterality, with sciatica presence unspecified M54.5 [place] [address] 64301- 4707 Sep, Anxiety F41.9 and Low back pain, unspecified back pain laterality, with sciatica presence unspecified M54.5 [place] [id number] [place] [address] 45379- 5279 Sep, Anxiety F41.9 [place] [id number] [place] [address] 56512- 1799 17 Sep, 2016 Gastro-esophageal reflux disease without esophagitis K21.9 [facility] [id number] [place] [address] [id number] 09 Sep, 2016 Dental examination Z01.20 [facility] [id number] [place] [address] 93777- 2175 02 Sep, 2016 Low back pain, unspecified back pain laterality, with sciatica presence unspecified M54.5 and Postoperative hypothyroidism E89.0 [facility] [id number] [place] [address] 78516- 1832 Aug, Anxiety F41.9 [facility] [id number] [place] [address] 88778- 2483 Aug, [facility] [id number] [place] [address] 95515- 6780 Aug, Low back pain, unspecified back pain laterality, with sciatica presence unspecified M54.5 ; Other chronic pain G89.29 ; Thyroid cancer C73 and Postoperative hypothyroidism E89.0 [facility] [id number] [place] [address] 41400- 9409 Jul, [facility] [id number] [place] [address] 40167- 6059 Jul, Anxiety F41.9 [facility] [id number] [place] [address] 21197- 1899 Jul, [facility] [id number] [place] [address] 74570- 4950 18 Jul, 2016 BMI 29.0-29.9,adult Z68.29 [facility] [id number] [place] [address] 66899- 0136 17 Jul, 2016 [facility] [id number] [place] [address] 15737- 6514 08 Jul, 2016 BMI 30.0-30.9,adult Z68.30 [place] [id number] [place] [address] 97978- 6864 Jul, Low back pain, unspecified back pain laterality, with sciatica presence unspecified M54.5 and Anxiety F41.9 [place] [address] 75809- 1809 Jun, 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 [place] [address] 51162- 2772 17 Jun, 2016 BMI 30.0-30.9,adult Z68.30 [place] [address] 120162- 1731 14 Jun, 2016 [place] [address] 30670- 9824 10 Jun, 2016 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 ; Dysthymia F34.1 ; Encounter for immunization Z23 and Other chronic pain G89.29 [place] [address] 95288- 2432 06 Jun, 2016 Low back pain, unspecified back pain laterality, with sciatica presence unspecified M54.5 [place] [address] 63245- 1197 04 Jun, 2016 BMI 30.0-30.9,adult Z68.30 [place] [address] 05663- 2886 Jun, Anxiety F41.9 [place] [address] 37537- 1550 May, 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 [place] [address] 31460- 3309 May, Constipation, unspecified constipation type K59.00 [place] [address] 95857- 0223 08 May, 2016 Low back pain, unspecified back pain laterality, with sciatica presence unspecified M54.5 [place] [id number] [place] [address] 58423- 2177 08 May, 2016 [place] [address] 29061- 5433 May, Constipation, unspecified constipation type K59.00 [place] [address] 63403- 1289 May, Anxiety F41.9 [place] [address] 02712- 0742 Apr, BMI 31.0-31.9,adult Z68.31 [place] [address] 43733- 4234 Apr, Thyroid goiter E04.9 [place] [address] 57656- 3651 Apr, [place] [address] 17124- 3398 Apr, Low back pain, unspecified back pain laterality, with sciatica presence unspecified M54.5 [place] [address] 66047- 1247 Apr, [place] [address] 01713- 2454 Apr, Constipation, unspecified constipation type K59.00 ; Thyroid nodule E04.1 ; Family history of colon cancer Z80.0 and 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 [place] [id number] [place] [address] 42565- 9610 Apr, Anxiety F41.9 [place] [address] 80059- 6373 Mar, [place] [address] 36526- 6760 Mar, Low back pain, unspecified back pain laterality, with sciatica presence unspecified M54.5 [place] [id number] [place] [address] 14313- 4636 Mar, BMI 32.0-32.9,adult Z68.32 [place] [id number] [place] [address] 02046- 7117 Feb, Anxiety F41.9 [place] [id number] [place] [address] 78275- 2923 Feb, Depression, unspecified depression type F32.9 [place] [id number] [place] [address] 96942- 1404 Feb, BMI 32.0-32.9,adult Z68.32 [place] [id number] [place] [address] 84970- 7407 Feb, Low back pain, unspecified back pain laterality, with sciatica presence unspecified M54.5 [place] [id number] [place] [address] 21785- 2558 Feb, [place] [id number] [place] [address] 48299- 5464 Feb, BMI 32.0-32.9,adult Z68.32 [place] [id number] [place] [address] 29772- 8958 Feb, Anxiety F41.9 [place] [id number] [place] [address] 84542- 1138 January, BMI 32.0-32.9,adult Z68.32 [place] [id number] [place] [address] 18712- 8406 January, Low back pain, unspecified back pain laterality, with sciatica presence unspecified M54.5 ; Other chronic pain G89.29 ; Weight gain R63.5 and Rheumatoid arthritis, involving unspecified site, unspecified rheumatoid factor presence M06.9 [place] [id number] [place] [address] 92374- 6585 January, Low back pain, unspecified back pain laterality, with sciatica presence unspecified M54.5 [facility] [id number] [place] [address] 77520- 4657 January, BMI 32.0-32.9,adult Z68.32 [facility] [id number] [place] [address] 12243- 8523 January, BMI 32.0-32.9,adult Z68.32 [facility] [address] 18621- 6764 January, BMI 32.0-32.9,adult Z68.32 [facility] [address] 80465- 0459 Dec, Insomnia G47.00 and Dysthymia F34.1 [facility] [address] 16398- 6596 Dec, [facility] [address] 20854- 7402 Dec, Other chronic pain G89.29 ; Neuropathy G62.9 and Dysthymia F34.1 [facility] [id number] [place] [address] 89222- 6938 Dec, [facility] [id number] [place] [address] 83061- 8737 Nov, [facility] [id number] [place] [address] 46724- 9586 Nov, [facility] [id number] [place] [address] 21562- 2980 Nov, [facility] [id number] [place] [address] 47124- 6327 Oct, [facility] [id number] [place] [address] 11851- 2567 Oct, [facility] [address] 51171- 7414 Oct, Family history of diabetes mellitus Z83.3 [facility] [address], [place] [address]- 1839 Oct, [facility] [id number] [place] [address] 99530- 2813 Sep, [facility] [id number] [place] [address] 64342- 1352 Sep, Eye pain, right H57.11 and Other chronic pain G89.29 [facility] [id number] [place] [address] 31350- 4650 Sep, [facility] [id number] [place] [address] 26840- 0631 Sep, [place] [id number] [place] [address] 71108- 9815 Sep, 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 ; Neuropathy G62.9 ; Low back pain, unspecified back pain laterality, with sciatica presence unspecified M54.5 ; Gastro-esophageal reflux disease without esophagitis K21.9 and Encounter for long-term (current) use of other medications V58.69 [facility] [address] [place] [address] 90211- 7486 Sep, [place] [address] [place] [address] 82135- 4022 Sep, [facility] [address] [place] [address] 94108- 3826 Sep, [facility] [address] [place] [address] 98818- 9075 Sep, [facility] [id number] [place] [address] 72195- 4133 Aug, [facility] [address], [place] [address]- 0551 Aug, Family history of diabetes mellitus Z83.3 [facility] [id number] [address]- 3790 Aug, [facility] [address] [place] [address] 69626- 2208 Aug, [facility] [id number] [place] [address] 799972- 0251 16 Aug, 2015 Family history of diabetes mellitus Z83.3 [facility] [id number] [place] [address] 643489- 3791 Aug, Weight gain R63.5 ; Edema, unspecified R60.9 ; Family history of diabetes mellitus Z83.3 and Gastroesophageal reflux disease with esophagitis K21.0 [place] [id number] [place] [address] 62252- 2802 Aug, [place] [id number] [place] [address] 47599- 8668 Aug, [facility] [id number] [place] [address] 24483- 2776 Jul, [facility] [id number] [place] [address] 60038- 0167 Jul, [place] [id number] [place] [address] 12889- 1339 Jul, [facility] [address], [place] [address]- 7644 Jun, [facility] [id number] [place] [address] 13474- 8762 Jun, Nose pain J34.89 ; Encounter for immunization Z23 ; Screening for breast cancer Z12.39 and Encounter for long-term (current) use of other medications V58.69 [facility] [address] [place] [address] 011122- 8793 Jun, [facility] [address], [place] [address]- 9889 May, [facility] [id number] [place] [address]- 2728 18 May, 2014 [facility] [address] [id number] [place] [address]- 2603 17 May, 2014 [facility] [place] [facility] [address] [id number] [place] [address]- 1812 17 May, 2014 [facility] [place] [facility] [address] [id number] [place] [address]- 0996 10 May, 2014 [facility] [place] [facility] [address] [id number] [place] [address]- 5674 May, 2014 [facility] [place] [facility] [address] [id number] [place] [address]- 3418 May, [facility] [place] [facility] [address] [id number] [place] [address]- 5327 Apr, [facility] [place] [facility] [address] [id number] [place] [address]- 1878 Apr, [facility] [place] [facility] [address] [id number] [place] [address]- 2729 Apr, [facility] [place] [facility] [address] [facility] [id number] [place] [address]- 3492 Mar, [facility] [place] [facility] [address] [facility] [id number] [place] [address]- 8188 Mar, [facility] [place] [facility] [address] [facility] [id number] [place] [address]- 3439 Mar, Lesion of left shoulder 709.9 [facility] [place] [facility] [address] [id number] [place] [address]- 1390 Mar, [facility] [place] [facility] [address] [facility] [id number] [place] [address]- 254 Mar, [facility] [place] [facility] [address] [facility] [id number] [place] [address]- 4805 Mar, [facility] [place] [facility] [address] [facility] [id number] [place] [address]- 6005 Feb, [facility] [address], [place] [address]- 5215 Feb, [facility] [address], [place] [address]- 8977 Feb, Unspecified backache 724.5 ; Weight gain 783.1 ; Hypothyroid 244.9 ; Edema 782.3 and Diaphoresis 780.8 [facility] [address] [facility] [id number] [address]- 7552 Feb, [facility] [address], [place] [address]- 9293 Feb, [facility] [address], [place] [address]- 0266 Feb, [facility] [address], [place] [address]- 6627 Feb, [facility] [address], [place] [address]- 7262 Feb, [facility] [address], [place] [address]- 4842 January, [facility] [address], [place] [address]- 7310 January, [facility] [id number], [place] [address]- 8488 14 Dec, 2014 [facility] [address], [place] [address]- 4137 Dec, [facility] [id number], [place] [address]- 0221 16 Nov, 2014 [facility] [place] [facility] [id number], [place] [address]- 5929 Nov, [facility] [place] [facility] [id number], [place] [address] Nov, [facility] [id number] [address] 16 Nov, 2014 [facility] [address] [id number] [place] [address] 16 Nov, 2014 [facility] [place] [facility] [address] [id number] [place] [address] 16 Nov, 2014 [facility] [place] [facility] [address] [id number] [place] [address] 12 Nov, 2014 [facility] [place] [facility] [address] [id number] [place] [address] 12 Nov, 2014 [facility] [place] [facility] [address] [id number] [place] [address] 11 Nov, 2014 [facility] [place] [facility] [address] [id number] [place] [address] Nov, [facility] [place] [facility] [address] [id number] [place] [address] 05 Nov, 2014 [facility] [place] [facility] [address] [id number] [place] [address] 04 Nov, 2014 [facility] [place] [facility] [address] [id number] [place] [address] 04 Nov, 2014 [facility] [place] [facility] [address] [id number] [place] [address] Oct, [facility] [place] [facility] [address] [id number] [place] [address] Oct, [facility] [place] [facility] [address] [id number] [place] [address] Sep, [facility] [place] [facility] [address] [id number] [place] [address] Sep, [facility] [place] [facility] [address] [id number] [place] [address] Aug, [facility] [place] [facility] [address] [id number] [place] [id number] Aug, [facility] [place] [facility] [address] [id number] [place] [address] Aug, [facility] [place] [facility] [address] [id number] [place] [address] Aug, [facility] [place] [facility] [address] [id number] [place] [address] Aug, [facility] [place] [facility] [address] [id number] [place] [address] 0310 Aug, [facility] [place] [facility] [address] [id number] [place] [address] 9302 Aug, [facility] [place] [facility] [address] [id number] [place] [address] 6007 Aug, [facility] [place] [facility] [address] [id number] [place] [address] 2350 Aug, [facility] [place] [facility] [address] [id number] [place] [address] 4683 Jul, [facility] [place] [facility] [address] [id number] [place] [address] 8[address] Jul, [facility] [place] [facility] [address] [id number] [place] [address]- 2474 Jul, [facility] [place] [facility] [address] [id number] [place] [address]- 3480 Jul, [facility] [place] [facility] [address] [id number] [place] [address]- 0355 Jul, [facility] [place] [facility] [address] [id number] [place] [address] 2180 Jul, [facility] [place] [facility] [address] [id number] [place] [address]- 6610 Jul, [facility] [place] [facility] [address] [id number] [place] [address]- 4768 Jul, [facility] [place] [facility] [address] [id number] [place] [address]- 2857 Jul, [facility] [place] [facility] [address] [id number] [place] [address]- 3684 Jul, [facility] [place] [facility] [address] [id number] [place] [address] 4532 Jun, [facility] [place] [facility] [address] [id number] [place] [address]- 7950 Jun, [facility] [place] [facility] [address] [id number] [place] [address]- 9058 Jun, [facility] [place] [facility] [address] [id number] [place] [address]- 4327 Jun, [facility] [place] [facility] [address] [id number] [place] [address]- 5005 Jun, [facility] [place] [facility] [address] [id number] [place] [address]- 8607 Jun, [facility] [place] [facility] [address] [id number] [place] [address]- 7721 30 May, 2013 [facility] [place] [facility] [address] [id number] [place] [address]- 0224 30 Sep, 2013 [facility] [place] [facility] [address] [id number] [place] [address]- 3507 29 Sep, 2013 [facility] [place] [facility] [address] [id number] [place] [address]- 254 29 Sep, 2013 [facility] [place] [facility] [address] [id number] [address] 24 Sep, 2013 [facility] [place] [facility] [address] [id number] [place] [address]- 254 24 Sep, 2013 [facility] [place] [facility] [address] [id number] [place] [address]- 6017 22 Sep, 2013 [facility] [place] [facility] [address] [id number] [place] [address]- 5334 22 Sep, 2013 [facility] [place] [facility] [address] [id number] [place] [address]- 9367 05 May, 2013 [facility] [place] [facility] [address] [id number] [place] [address]- 1864 05 May, 2013 [facility] [place] [facility] [address] [id number] [place] [address]- 1981 02 May, 2013 [facility] [place] [facility] [address] [id number] [place] [address]- 6446 May, 2013 [facility] [place] [facility] [address] [id number] [place] [address]- 2875 Apr, [facility] [place] [facility] [address] [id number] [place] [address]- 2675 Apr, [facility] [place] [facility] [address] [id number] [place] [address]- 1264 Apr, [facility] [place] [facility] [address] [id number] [place] [address]- 8538 Apr, [facility] [place] [facility] [address] [id number] [place] [address]- 0694 Apr, [facility] [place] [facility] [address] [id number] [place] [address]- 5482 Apr, [facility] [place] [facility] [address] [id number] [place] [address]- 4496 Apr, [facility] [place] [facility] [address] [id number] [place] [address]- 5287 Apr, [facility] [place] [facility] [address] [id number] [place] [address]- 3687 Apr, [facility] [place] [facility] [address] [id number] [place] [address]- 2691 Apr, [facility] [place] [facility] [address] [id number] [place] [address]- 0103 Apr, [facility] [place] [facility] [address] [id number] [place] [address]- 4851 Apr, [facility] [place] [facility] [address] [id number] [place] [address]- 7191 Apr, [facility] [place] [facility] [address] [id number] [place] [address]- 3344 Apr, [facility] [place] [facility] [address] [id number] [place] [address]- 0847 Apr, [facility] [place] [facility] [address] [id number] [place] [address]- 6292 Apr, [facility] [place] [facility] [address] [id number] [place] [address]- 9434 Apr, [facility] [place] [facility] [address] [id number] [place] [address]- 8656 Apr, [facility] [place] [facility] [address] [id number] [place] [address]- 2929 Apr, [facility] [place] [facility] [address] [id number] [place] [address]- 9005 Apr, [facility] [place] [facility] [address] [id number] [place] [address]- 8621 Apr, [facility] [place] [facility] [address] [id number] [place] [address]- 4525 Apr, [facility] [place] [facility] [address] [id number], [place] [address]- 6952 Apr, [facility] [place] [facility] [address] [id number], [place] [address]- 6550 Mar, [facility] [place] [facility] [address] [id number] [place] [address]- 2151 Mar, [facility] [place] [facility] [address] [id number] [place] [address]- 0996 Mar, [facility] [place] [facility] [address] [id number] [place] [address]- 5357 Mar, [facility] [place] [facility] [address] [id number] [place] [address]- 5750 Mar, [facility] [place] [facility] [address] [id number] [place] [address]- 9343 Mar, [facility] [place] [facility] [address] [id number] [place] [address]- 7626 Mar, [facility] [place] [facility] [address] [id number] [place] [address]- 4749 17 Mar, 2014 [facility] [place] [facility] [address] [id number] [place] [address]- 5995 Mar, [facility] [place] [facility] [address] [id number] [place] [address]- 9906 Mar, [facility] [place] [facility] [address] [id number] [place] [address]- 7733 Mar, [facility] [place] [facility] [address] [id number] [place] [address]- 0693 Mar, [facility] [place] [facility] [address] [id number] [place] [address]- 4376 Mar, [facility] [place] [facility] [address] [id number] [place] [address]- 1619 Mar, [facility] [place] [facility] [address] [id number] [place] [address]- 6536 Feb, [facility] [place] [facility] [address] [id number] [place] [address]- 5615 Feb, [facility] [place] [facility] [address] [id number] [place] [address]- 9733 Feb, [facility] [place] [facility] [address] [id number] [place] [address]- 1386 Feb, [facility] [place] [facility] [address] [id number] [place] [address]- 8324 Feb, [facility] [place] [facility] [address] [id number] [place] [address]- 9198 Feb, [facility] [place] [facility] [address] [id number] [place] [address]- 7151 Feb, [facility] [place] [facility]

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
--- OUTSIDE RECORDS SUMMARY | 2018-06-07 11:46 | XMS REPORT ---
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 Role Phone ELISEO BENDER Unavailable PROBLEMS Type Condition ICD9-CM Code [id number] Code Onset Dates Condition Status SNOMED Code Problem Insomnia G47.00 Active 242057159 Problem Chest pain, unspecified type R07.9 Active 85591765 Problem Rheumatoid arthritis, involving unspecified site, unspecified rheumatoid factor presence M06.9 Active 76450489 Problem BMI 31.0-31.9,adult Z68.31 Active 998996762 Problem Other atopic dermatitis L20.89 Active 67578202 Problem Depression, unspecified depression type F32.9 Active 30184706 Problem Anxiety F41.9 Active 45575569 Problem Thyroid cancer C73 Active 356557455 Problem Postoperative hypothyroidism E89.0 Active 19547686 Problem 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 Active 40938150 Problem Gastro-esophageal reflux disease without esophagitis K21.9 Active 026981921 Problem Low back pain, unspecified back pain laterality, with sciatica presence unspecified M54.5 Active 398116043 Problem Other chronic pain G89.29 Active 09721289 Problem Neuropathy G62.9 Active 885698220 Problem Dysthymia F34.1 Active 10379089 ALLERGIES No Information ENCOUNTERS Encounter Location Date Diagnosis [facility] [address] [id number] [address] January, [facility] [id number] [place] [address] 49496- 7096 Dec, Low back pain, unspecified back pain laterality, with sciatica presence unspecified M54.5 [facility] [id number], [place] [address] Nov, Low back pain, unspecified back pain laterality, with sciatica presence unspecified M54.5 [place] [address] [address]- [address] Nov, [place] [address] [place] [id number] Nov, Low back pain, unspecified back pain laterality, with sciatica presence unspecified M54.5 ; Other chronic pain G89.29 ; Rheumatoid arthritis, involving unspecified site, unspecified rheumatoid factor presence M06.9 and Dysthymia F34.1 [place] [address] [address]- [address] Oct, Low back pain, unspecified back pain laterality, with sciatica presence unspecified M54.5 [place] [address] 51741- 1721 Sep, Low back pain, unspecified back pain laterality, with sciatica presence unspecified M54.5 [facility] [address] [address] -[address]72 Sep, Fever R50.9 and URI, acute J06.9 [place] [address] 0[address]- 4946 Aug, [place] [address] 58738- 1887 Aug, Low back pain, unspecified back pain laterality, with sciatica presence unspecified M54.5 [place] [address] 26135- 2576 Jul, Low back pain, unspecified back pain laterality, with sciatica presence unspecified M54.5 [facility] [place] [address] 06[address] -6767 15 Jul, 2017 Nausea R11.0 ; Fever and chills R50.9 ; UTI symptoms R39.9 and Hematuria, unspecified type R31.9 [place] [address] [address]- 4772 Jul, [place] [id number] [place] [address] 12641- 4835 Jun, Low back pain, unspecified back pain laterality, with sciatica presence unspecified M54.5 [place] [id number] [place] [address] 94845- 6394 Jun, BMI 31.0-31.9,adult Z68.31 [place] [address] 67820- 8935 Jun, Neuropathy G62.9 [place] [address] 32178- 9648 Jun, Low back pain, unspecified back pain laterality, with sciatica presence unspecified M54.5 [place] [address] 76382- 7043 Jun, Encounter for immunization Z23 [place] [address] 15139- 2152 Jun, BMI 31.0-31.9,adult Z68.31 [place] [address] 92705- 0860 Jun, Low back pain, unspecified back pain laterality, with sciatica presence unspecified M54.5 [place] [id number] [place] [address] 52342- 2153 May, Low back pain, unspecified back pain laterality, with sciatica presence unspecified M54.5 ; Other chronic pain G89.29 ; Plantar fasciitis M72.2 ; Rheumatoid arthritis, involving unspecified site, unspecified rheumatoid factor presence M06.9 and History of alcohol abuse Z87.898 [place] [id number] [place] [address] 98565- 0948 May, Anxiety F41.9 and Low back pain, unspecified back pain laterality, with sciatica presence unspecified M54.5 [place] [address] 75096- 5335 11 Apr, 2017 Anxiety F41.9 and Low back pain, unspecified back pain laterality, with sciatica presence unspecified M54.5 [place] [address] 90942- 5750 18 Mar, 2017 Acute right-sided low back pain without sciatica M54.5 ; Rash R21 ; Right flank pain R10.9 ; Lipid screening Z13.220 ; Other chronic pain G89.29 ; 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 ; Postoperative hypothyroidism E89.0 and Breast cancer screening Z12.39 [place] [address] 15306- 3354 14 Mar, 2017 Anxiety F41.9 and Low back pain, unspecified back pain laterality, with sciatica presence unspecified M54.5 [place] [address] 33215- 7388 13 Mar, 2017 Acute right-sided low back pain without sciatica M54.5 [place] [address] 91913- 6931 07 Mar, 2017 Anxiety F41.9 [place] [address] 93314- 0668 28 Feb, 2017 Right flank pain R10.9 and Anxiety F41.9 [place] [address] 53464- 7173 16 Feb, 2017 BMI 31.0-31.9,adult Z68.31 [place] [address] 43727- 3439 16 Feb, 2017 Low back pain, unspecified back pain laterality, with sciatica presence unspecified M54.5 and Anxiety F41.9 [facility] [address] [address]798 January, Abscess of toe of right foot L02.611 and Other atopic dermatitis L20.89 [place] [address] 85913- 7276 January, Low back pain, unspecified back pain laterality, with sciatica presence unspecified M54.5 and Anxiety F41.9 [place] [address] [address]79759- 0242 Dec, Anxiety F41.9 and Low back pain, unspecified back pain laterality, with sciatica presence unspecified M54.5 [facility] [address] [address] Dec, Scabies B86 [place] [address] 39750- 3304 Nov, Rash R21 ; Other chronic pain G89.29 ; 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 ; Postoperative hypothyroidism E89.0 ; Breast cancer screening Z12.39 and Lipid screening Z13.220 [place] [address] 52624- 9999 Nov, Anxiety F41.9 and Low back pain, unspecified back pain laterality, with sciatica presence unspecified M54.5 [place] [address] 58565- 5223 Oct, Anxiety F41.9 and Low back pain, unspecified back pain laterality, with sciatica presence unspecified M54.5 [place] [address] 37655- 1539 Sep, Anxiety F41.9 and Low back pain, unspecified back pain laterality, with sciatica presence unspecified M54.5 [place] [address] 01669- 6118 Sep, Anxiety F41.9 [place] [address] 71537- 4522 Sep, Gastro-esophageal reflux disease without esophagitis K21.9 [facility] [address] [id number] Sep, Dental examination Z01.20 [place] [id number] [place] [address] 64124- 2888 Sep, Low back pain, unspecified back pain laterality, with sciatica presence unspecified M54.5 and Postoperative hypothyroidism E89.0 [place] [id number] [place] [address] 11103- 0307 Aug, Anxiety F41.9 [place] [id number] [place] [address] 39091- 9228 Aug, [place] [address] 40610- 0087 Aug, Low back pain, unspecified back pain laterality, with sciatica presence unspecified M54.5 ; Other chronic pain G89.29 ; Thyroid cancer C73 and Postoperative hypothyroidism E89.0 [place] [id number] [place] [address] 50136- 5563 Jul, [place] [address] 91736- 5728 Jul, Anxiety F41.9 [place] [id number] [place] [address] 07800- 7673 Jul, [place] [id number] [place] [address] 59963- 8628 Jul, BMI 29.0-29.9,adult Z68.29 [place] [id number] [place] [address] 83049- 5026 Jul, [place] [id number] [place] [address] 81364- 1092 Jul, BMI 30.0-30.9,adult Z68.30 [place] [id number] [place] [address] 62336- 3708 Jul, Low back pain, unspecified back pain laterality, with sciatica presence unspecified M54.5 and Anxiety F41.9 [place] [id number] [place] [address] 64017- 8831 Jun, 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 [facility] [id number] [place] [address] 98755- 1734 17 Jun, 2016 BMI 30.0-30.9,adult Z68.30 [facility] [address] 43580- 3264 14 Jun, 2016 [facility] [address] 910346- 2592 Jun, 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 ; Dysthymia F34.1 ; Encounter for immunization Z23 and Other chronic pain G89.29 [place] [address] 275219- 3110 06 Jun, 2016 Low back pain, unspecified back pain laterality, with sciatica presence unspecified M54.5 [place] [address] 46009- 5064 Jun, BMI 30.0-30.9,adult Z68.30 [facility] [address] 71068- 8634 Jun, Anxiety F41.9 [place] [address] 95247- 2942 May, 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 [facility] [id number] [place] [address] 53638- 2105 May, Constipation, unspecified constipation type K59.00 [facility] [address] 60662- 8335 08 May, 2016 Low back pain, unspecified back pain laterality, with sciatica presence unspecified M54.5 [facility] [address] 36707- 6588 May, [facility] [address] 46564- 5983 07 May, 2016 Constipation, unspecified constipation type K59.00 [facility] [id number] [place] [address] 76557- 7567 May, Anxiety F41.9 [place] [address] 43849- 4516 Apr, BMI 31.0-31.9,adult Z68.31 [place] [address] 30349- 6975 Apr, Thyroid goiter E04.9 [place] [address] 23561- 0787 Apr, [place] [address] 03026- 1769 Apr, Low back pain, unspecified back pain laterality, with sciatica presence unspecified M54.5 [place] [address] 21241- 8581 Apr, [place] [address] 56034- 4200 Apr, Constipation, unspecified constipation type K59.00 ; Thyroid nodule E04.1 ; Family history of colon cancer Z80.0 and 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 [place] [address] 05299- 6955 Apr, Anxiety F41.9 [place] [id number] [place] [address] 13289- 4360 Mar, [place] [address] 77191- 1378 Mar, Low back pain, unspecified back pain laterality, with sciatica presence unspecified M54.5 [place] [address] 57383- 1323 Mar, BMI 32.0-32.9,adult Z68.32 [place] [address] 32235- 1353 Feb, Anxiety F41.9 [place] [address] [place] [address] 13760- 6016 30 Feb, 2016 Depression, unspecified depression type F32.9 [place] [id number] [place] [address] 99428- 0264 Feb, BMI 32.0-32.9,adult Z68.32 [place] [id number] [place] [address] 16714- 9138 16 Feb, 2016 Low back pain, unspecified back pain laterality, with sciatica presence unspecified M54.5 [place] [id number] [place] [address] 44693- 1947 Feb, [place] [id number] [place] [address] 84922- 9628 Feb, BMI 32.0-32.9,adult Z68.32 [place] [id number] [place] [address] 59988- 6284 Feb, Anxiety F41.9 [place] [id number] [place] [address] 57596- 6034 January, BMI 32.0-32.9,adult Z68.32 [place] [id number] [place] [address] 40540- 8378 January, Low back pain, unspecified back pain laterality, with sciatica presence unspecified M54.5 ; Other chronic pain G89.29 ; Weight gain R63.5 and Rheumatoid arthritis, involving unspecified site, unspecified rheumatoid factor presence M06.9 [place] [address] [place] [address] 85608- 5958 January, Low back pain, unspecified back pain laterality, with sciatica presence unspecified M54.5 [place] [id number] [place] [address] 65941- 2743 January, BMI 32.0-32.9,adult Z68.32 [place] [id number] [place] [address] 64738- 0918 January, BMI 32.0-32.9,adult Z68.32 [facility] [id number] [place] [address] 02811- 0980 January, BMI 32.0-32.9,adult Z68.32 [facility] [id number] [place] [address] 23591- 0827 Dec, Insomnia G47.00 and Dysthymia F34.1 [facility] [address] 09791- 9870 Dec, [facility] [address] 80662- 6312 Dec, Other chronic pain G89.29 ; Neuropathy G62.9 and Dysthymia F34.1 [facility] [id number] [place] [address] 83394- 2426 Dec, [facility] [id number] [place] [address] 64615- 4243 Nov, [facility] [id number] [place] [address] 47964- 2654 Nov, [facility] [id number] [place] [address] 40519- 1145 Nov, [facility] [id number] [place] [address] 24242- 5193 Oct, [facility] [id number] [place] [address] 99960- 4209 Oct, [facility] [id number] [place] [address] 79976- 1692 Oct, Family history of diabetes mellitus Z83.3 [facility] [id number] [place] [address] 53336- 9459 Oct, [facility] [id number] [place] [address] 16993- 7242 Sep, [facility] [id number] [place] [address] 33849- 6603 Sep, Eye pain, right H57.11 and Other chronic pain G89.29 [facility] [id number] [place] [address] 61159- 6632 Sep, [facility] [id number] [place] [address] 95741- 5868 Sep, [facility] [id number] [place] [address] 92443- 3343 Sep, 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 ; Neuropathy G62.9 ; Low back pain, unspecified back pain laterality, with sciatica presence unspecified M54.5 ; Gastro-esophageal reflux disease without esophagitis K21.9 and Encounter for long-term (current) use of other medications V58.69 [place] [id number] [place] [address] 12637- 1439 Sep, [place] [id number] [place] [address] 15348- 4717 Sep, [place] [address] 73262- 5257 Sep, [place] [id number] [place] [address] 95400- 3234 Sep, [place] [id number] [place] [address] 61940- 0815 Aug, [facility] [id number] [place] [address] 54849- 0605 Aug, Family history of diabetes mellitus Z83.3 [place] [address] 28050- 4653 Aug, [facility] [id number] [place] [address] 41128- 3205 Aug, [facility] [id number] [place] [address] 22660- 6830 Aug, Family history of diabetes mellitus Z83.3 [facility] [address] [place] [address] 05322- 1785 14 Aug, 2015 Weight gain R63.5 ; Edema, unspecified R60.9 ; Family history of diabetes mellitus Z83.3 and Gastroesophageal reflux disease with esophagitis K21.0 [facility] [id number] [place] [address] 57163- 7366 14 Aug, 2015 [facility] [id number] [place] [address] 49299- 1278 Aug, [facility] [id number] [place] [address] 28326- 1324 Jul, [place] [id number] [place] [address] 73319- 6997 Jul, [place] [id number] [place] [address] 72521- 1307 Jul, [facility] [id number] [place] [address] 14477- 3322 Jun, [facility] [id number] [place] [address] 66660- 0544 Jun, Nose pain J34.89 ; Encounter for immunization Z23 ; Screening for breast cancer Z12.39 and Encounter for long-term (current) use of other medications V58.69 [place] [id number] [place] [address] 23062- 7182 Jun, [facility] [address] [place] [address] 38152- 0433 May, [place] [id number] [place] [address] 448703- 9059 18 May, 2015 [facility] [id number] [place] [address] 88409- 8183 May, [facility] [id number] [place] [address] 00889- 9419 May, [facility] [address] [facility] [id number] [place] [address]- 7768 May, [facility] [address] [facility] [id number] [place] [address]- 1709 May, [facility] [address] [facility] [id number] [place] [address]- 6323 May, [facility] [address] [facility] [id number] [place] [address]- 6024 Apr, [facility] [address] [facility] [id number] [place] [address]- 4829 Apr, [facility] [address] [facility] [id number] [place] [address]- 1392 Apr, [facility] [id number] [place] [address]- 3960 Mar, [facility] [id number], [place] [address]- 7688 Mar, [facility] [id number] [address]- 9849 Mar, Lesion of left shoulder 709.9 [facility] [id number], [place] [address]- 6985 Mar, [facility] [id number], [place] [address]- 9715 Mar, [facility] [id number], [place] [address]- 4824 Mar, [facility] [id number] [address]- 3240 Feb, [facility] [id number] [address]- 6602 Feb, [facility] [id number], [place] [address]- 8146 Feb, Unspecified backache 724.5 ; Weight gain 783.1 ; Hypothyroid 244.9 ; Edema 782.3 and Diaphoresis 780.8 [facility] [address] [place] [address]- 5209 18 Feb, 2015 [facility] [id number] [place] [address]- 3992 10 Feb, 2015 [facility] [id number] [place] [address], [place] [address]- 7932 Feb, [facility] [address] [facility] [id number] [place] [address]- 8246 Feb, [facility] [id number] [place] [address], [place] [address]- 8606 Feb, [facility] [id number] [place] [address]- 9994 January, [facility] [id number] [place] [address]- 1670 January, [facility] [address] [address]- 4579 14 Dec, 2014 [facility] [id number] [place] [address]- 4486 13 Dec, 2014 [facility] [address], [place] [address]- 9278 16 Nov, 2014 [facility] [address] [address]- 4629 16 Nov, 2014 [facility] [id number] [address]- 4285 16 Nov, 2014 [facility] [address]- 1585 16 Nov, 2014 [facility] [id number] [address]- 1019 16 Nov, 2014 [facility] [address]- 0166 16 Nov, 2014 [facility] [place] [facility] [address] [id number] [place] [address]- 2816 Nov, [facility] [place] [facility] [address] [id number] [place] [address]- 8755 Nov, [facility] [place] [facility] [address] [id number] [place] [address]- 4658 Nov, [facility] [place] [facility] [address] [id number] [place] [address]- 7547 Nov, [facility] [place] [facility] [address] [id number] [place] [address]- 0835 Nov, [facility] [place] [facility] [address] [id number] [place] [address]- 6974 Nov, [facility] [place] [facility] [address] [id number] [place] [address]- 9106 Nov, [facility] [place] [facility] [address] [id number] [place] [address]- 0271 Oct, [facility] [place] [facility] [address] [id number] [place] [address]- 1696 Oct, [facility] [place] [facility] [address] [id number] [place] [address] Sep, [facility] [place] [facility] [address] [id number] [place] [address] Sep, [facility] [place] [facility] [address] [id number] [place] [address] Aug, [facility] [place] [facility] [address] [id number] [place] [address] Aug, [facility] [place] [facility] [address] [id number] [place] [address] Aug, [facility] [place] [facility] [address] [id number] [place] [address] Aug, [facility] [place] [facility] [address] [id number] [place] [address] 17 Aug, 2014 [facility] [place] [facility] [address] [id number] [place] [address] 17 Aug, 2014 [facility] [place] [facility] [address] [id number] [place] [address] Aug, [facility] [place] [facility] [address] [id number] [place] [address] Aug, [facility] [place] [facility] [address] [id number] [place] [address] Aug, [facility] [place] [facility] [address] [id number] [place] [address] Jul, [facility] [place] [facility] [address] [id number] [place] [address] Jul, [facility] [place] [facility] [address] [id number] [place] [address] Jul, [facility] [place] [facility] [address] [id number] [place] [address] Jul, [facility] [place] [facility] [address] [id number] [place] [address] Jul, [facility] [place] [facility] [address] [id number] [place] [address] Jul, [facility] [place] [facility] [address] [id number] [place] [address] Jul, [facility] [place] [facility] [address] [id number] [place] [address] Jul, [facility] [place] [facility] [address] [id number] [place] [address] Jul, [facility] [place] [facility] [address] [id number] [place] [address] Jul, [facility] [place] [facility] [address] [id number] [place] [address] Jun, [facility] [place] [facility] [address] [id number] [place] [address] Jun, [facility] [place] [facility] [address] [id number] [place] [address] 3765 Jun, [facility] [place] [facility] [address] [id number] [place] [address] 5622 Jun, [facility] [place] [facility] [address] [id number] [place] [address] 3875 Jun, [facility] [place] [facility] [address] [id number] [place] [address] 5932 Jun, [facility] [place] [facility] [address] [id number] [place] [address] 9491 30 May, 2013 [facility] [place] [facility] [address] [id number] [place] [address]- 8692 30 May, 2013 [facility] [place] [facility] [address] [id number] [place] [address]- 3098 29 May, 2013 [facility] [place] [facility] [address] [id number] [place] [address] 5797 29 May, 2013 [facility] [place] [facility] [address] [id number] [place] [address] 5398 24 May, 2013 [facility] [place] [facility] [address] [id number] [place] [address]- 2542 24 May, 2013 [facility] [place] [facility] [address] [id number] [place] [address] 3144 22 May, 2013 [facility] [place] [facility] [address] [id number] [place] [address]- 2541 22 May, 2013 [facility] [place] [facility] [address] [id number] [place] [address]- 2541 05 Sep, 2013 [facility] [place] [facility] [address] [id number] [place] [address]- 2543 05 Sep, 2013 [facility] [place] [facility] [address] [id number] [place] [address]- 6880 May, [facility] [place] [facility] [address] [id number] [place] [address] 6643 May, [facility] [place] [facility] [address] [id number] [place] [address] 4384 Apr, [facility] [place] [facility] [address] [id number] [place] [address]- 5042 Apr, [facility] [place] [facility] [address] [id number] [place] [address]- 3977 Apr, [facility] [place] [facility] [address] [id number] [place] [address]- 5980 Apr, [facility] [place] [facility] [address] [id number] [place] [address]- 0581 Apr, [facility] [place] [facility] [address] [id number] [place] [address]- 0947 Apr, [facility] [place] [facility] [address] [id number] [place] [address]- 4216 Apr, [facility] [place] [facility] [address] [id number] [place] [address]- 6186 Apr, [facility] [place] [facility] [address] [id number] [place] [address]- 9342 Apr, [facility] [place] [facility] [address] [id number] [place] [address]- 2576 Apr, [facility] [place] [facility] [address] [id number] [place] [address]- 0822 Apr, [facility] [place] [facility] [address] [id number] [place] [address]- 6084 Apr, [facility] [place] [facility] [address] [id number] [place] [address]- 2495 Apr, [facility] [place] [facility] [address] [id number] [place] [address]- 1039 Apr, [facility] [place] [facility] [address] [id number] [place] [address]- 8470 Apr, [facility] [place] [facility] [address] [id number] [place] [address]- 8208 Apr, [facility] [place] [facility] [address] [id number] [place] [address]- 7021 Apr, [facility] [place] [facility] [address] [id number] [place] [address]- 2653 Apr, [facility] [place] [facility] [address] [id number] [place] [address]- 4714 Apr, [facility] [place] [facility] [address] [id number] [place] [address]- 1479 Apr, [facility] [place] [facility] [address] [id number] [place] [address]- 2271 Apr, [facility] [place] [facility] [address] [id number] [place] [address]- 7989 Apr, [facility] [place] [facility] [address] [id number] [place] [address]- 7174 Apr, [facility] [place] [facility] [address] [id number] [place] [address]- 4549 Mar, [facility] [place] [facility] [address] [id number] [place] [address]- 7074 Mar, [facility] [place] [facility] [address] [id number] [place] [address]- 6848 Mar, [facility] [place] [facility] [address] [id number] [place] [address]- 3730 Mar, [facility] [place] [facility] [address] [id number] [place] [address]- 7201 Mar, [facility] [place] [facility] [address] [id number] [place] [address]- 3060 Mar, [facility] [place] [facility] [address] [id number] [place] [address]- 4012 Mar, [facility] [place] [facility] [address] [id number] [place] [address]- 8429 17 Mar, 2014 [facility] [place] [facility] [address] [id number] [place] [address]- 6525 Mar, [facility] [place] [facility] [address] [id number] [place] [address]- 5536 Mar, [facility] [place] [facility] [address] [id number] [place] [address]- 9949 Mar, [facility] [place] [facility] [address] [id number] [place] [address]- 5791 Mar, [facility] [place] [facility] [address] [id number] [place] [address]- 4993 Mar, [facility] [place] [facility] [address] [id number] [place] [address]- 5234 Mar, [facility] [place] [facility] [address] [id number] [place] [address]- 7952 Feb, [facility] [place] [facility] [address] [id number] [place] [address]- 5121 Feb, [facility] [place] [facility] [address] [id number] [place] [address]- 5158 Feb, [facility] [place] [facility] [address] [id number] [place] [address]- 4601 Feb, [facility] [place] [facility] [address] [id number] [place] [address]- 4703 Feb, [facility] [place] [facility] [address] [id number] [place] [address] 1934 Feb, [facility] [place] [facility] [address] [id number] [place] [address]- 7289 Feb, [facility] [place] [facility] [address] [id number] [place] [address]- 5607 Feb, [facility] [place] [facility] [address] [id number] [place] [address]- 3229 Dec, [facility] [place] [facility] [address] [id number] [place] [address]- 3665 Dec, [facility] [place] [facility] [address] [id number] [place] [address]- 3191 Dec, [facility] [place] [facility] [address] [id number] [place] [address]- 5995 Dec, [facility] [place] [facility] [address] [id number] [place] [address]- 1213 Nov, [facility] [place] [facility] [address] [id number] [place] [address]- 3093 Nov, [facility] [place] [facility] [address] [facility] [id number] [place] [address]- 5772 Nov, [facility] [place] [facility] [address] [facility] [id number] [place] [address]- 3322 Nov, [facility] [place] [facility] [address] [facility] [id number] [place] [address]- 6645 Nov, [facility] [place] [facility] [address] [facility] [id number] [place] [address]- 3789 Nov, [facility]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
--- OUTSIDE RECORDS SUMMARY | 2018-06-07 11:46 | XMS REPORT ---
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 Active Problem Neuropathy G62.9 Active Problem Anxiety F41.9 Active Problem Chest pain, unspecified type R07.9 Active Problem Depression, unspecified depression type F32.9 Active Problem Dysthymia F34.1 Active Problem Other chronic pain G89.29 Active Problem Rheumatoid arthritis, involving unspecified site, unspecified rheumatoid factor presence M06.9 Active Problem Insomnia G47.00 Active Problem Rheumatoid arthritis 714.0 Active Problem Unspecified hereditary and idiopathic peripheral neuropathy 356.9 Active Assessment Low back pain, unspecified back pain laterality, with sciatica presence unspecified M54.5 Active Problem Unspecified backache 724.5 Active Problem Other malaise and fatigue 780.79 Active Problem Gastro-esophageal reflux disease without esophagitis K21.9 Active Medications Medication Code System Code Instructions Start Date End Date Status Dosage tramadol NDC 0 50 mg orally 3 times a day November 16, 2014 2 Tablets Results No Known Results Summary Purpose [employer] Submission
--- OUTSIDE RECORDS SUMMARY | 2018-06-07 11:47 | XMS REPORT ---
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 Role Phone ARMIN OZUNAY Unavailable PROBLEMS Type Condition ICD9-CM Code NOQ36-ON Code Onset Dates Condition Status SNOMED Code Problem Insomnia G47.00 Active 401255757 Problem Chest pain, unspecified type R07.9 Active 68420551 Problem Rheumatoid arthritis, involving unspecified site, unspecified rheumatoid factor presence M06.9 Active 07874299 Problem BMI 31.0-31.9,adult Z68.31 Active 526135003 Problem Other atopic dermatitis L20.89 Active 34353762 Problem Depression, unspecified depression type F32.9 Active 26957269 Problem Anxiety F41.9 Active 48323447 Problem Thyroid cancer C73 Active 624423575 Problem Postoperative hypothyroidism E89.0 Active 92719730 Problem 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 Active 86920745 Problem Gastro-esophageal reflux disease without esophagitis K21.9 Active 983700396 Problem Low back pain, unspecified back pain laterality, with sciatica presence unspecified M54.5 Active 988058480 Problem Other chronic pain G89.29 Active 49620214 Problem Neuropathy G62.9 Active 525419806 Problem Dysthymia F34.1 Active 34143502 ALLERGIES No Information ENCOUNTERS Encounter Location Date Diagnosis [facility] [id number] [address] January, [facility] [address] [place] [address]15- 9962 Dec, Low back pain, unspecified back pain laterality, with sciatica presence unspecified M54.5 [facility] [id number] [address] Nov, Low back pain, unspecified back pain laterality, with sciatica presence unspecified M54.5 [place] [id number] [place] [address] 53528- 7919 Nov, [place] [address] 62708- 0811 Nov, Low back pain, unspecified back pain laterality, with sciatica presence unspecified M54.5 ; Other chronic pain G89.29 ; Rheumatoid arthritis, involving unspecified site, unspecified rheumatoid factor presence M06.9 and Dysthymia F34.1 [place] [address] 9[address]15- 9738 Oct, Low back pain, unspecified back pain laterality, with sciatica presence unspecified M54.5 [place] [address] 54233- 4345 Sep, Low back pain, unspecified back pain laterality, with sciatica presence unspecified M54.5 [facility] [address] [address] Sep, Fever R50.9 and URI, acute J06.9 [place] [address] [address]- [address] Aug, [place] [address] 55653- 7346 Aug, Low back pain, unspecified back pain laterality, with sciatica presence unspecified M54.5 [place] [id number] [place] [address] 15031- 8978 Jul, Low back pain, unspecified back pain laterality, with sciatica presence unspecified M54.5 [facility] [place] [address] 7[address] -[address]68 15 Jul, 2017 Nausea R11.0 ; Fever and chills R50.9 ; UTI symptoms R39.9 and Hematuria, unspecified type R31.9 [place] [address] 23831- 1532 Jul, [place] [id number] [place] [address] 86620- 4807 Jun, Low back pain, unspecified back pain laterality, with sciatica presence unspecified M54.5 [place] [id number] [place] [address] 26514- 8411 Jun, BMI 31.0-31.9,adult Z68.31 [place] [id number] [place] [address] 11588- 5748 Jun, Neuropathy G62.9 [place] [address] 94779- 9547 Jun, Low back pain, unspecified back pain laterality, with sciatica presence unspecified M54.5 [place] [id number] [place] [address] 95077- 5470 Jun, Encounter for immunization Z23 [place] [id number] [place] [address] 82173- 3695 Jun, BMI 31.0-31.9,adult Z68.31 [place] [address] 20924- 6821 Jun, Low back pain, unspecified back pain laterality, with sciatica presence unspecified M54.5 [place] [id number] [place] [address] 92844- 3963 May, Low back pain, unspecified back pain laterality, with sciatica presence unspecified M54.5 ; Other chronic pain G89.29 ; Plantar fasciitis M72.2 ; Rheumatoid arthritis, involving unspecified site, unspecified rheumatoid factor presence M06.9 and History of alcohol abuse Z87.898 [place] [id number] [place] [address] 36548- 2063 May, Anxiety F41.9 and Low back pain, unspecified back pain laterality, with sciatica presence unspecified M54.5 [place] [address] [place] [address] [address]- 1551 Apr, Anxiety F41.9 and Low back pain, unspecified back pain laterality, with sciatica presence unspecified M54.5 [place] [address] 33927- 0887 18 Mar, 2017 Acute right-sided low back pain without sciatica M54.5 ; Rash R21 ; Right flank pain R10.9 ; Lipid screening Z13.220 ; Other chronic pain G89.29 ; 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 ; Postoperative hypothyroidism E89.0 and Breast cancer screening Z12.39 [place] [address] 03002- 1176 14 Mar, 2017 Anxiety F41.9 and Low back pain, unspecified back pain laterality, with sciatica presence unspecified M54.5 [place] [address] 94987- 3643 13 Mar, 2017 Acute right-sided low back pain without sciatica M54.5 [place] [address] 87282- 2279 07 Mar, 2017 Anxiety F41.9 [place] [address] 35999- 0004 28 Feb, 2017 Right flank pain R10.9 and Anxiety F41.9 [place] [address] 27663- 3343 16 Feb, 2017 BMI 31.0-31.9,adult Z68.31 [place] [address] 49258- 0904 16 Feb, 2017 Low back pain, unspecified back pain laterality, with sciatica presence unspecified M54.5 and Anxiety F41.9 [facility] [address] 15849 -7733 January, Abscess of toe of right foot L02.611 and Other atopic dermatitis L20.89 [place] [address] 94793- 2730 January, Low back pain, unspecified back pain laterality, with sciatica presence unspecified M54.5 and Anxiety F41.9 [place] [address] 43022- 4096 Dec, Anxiety F41.9 and Low back pain, unspecified back pain laterality, with sciatica presence unspecified M54.5 [facility] [address] 41717 -0889 Dec, Scabies B86 [place] [address] 10188- 0334 Nov, Rash R21 ; Other chronic pain G89.29 ; 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 ; Postoperative hypothyroidism E89.0 ; Breast cancer screening Z12.39 and Lipid screening Z13.220 [place] [address] 76173- 9273 Nov, Anxiety F41.9 and Low back pain, unspecified back pain laterality, with sciatica presence unspecified M54.5 [place] [address] 48489- 1743 Oct, Anxiety F41.9 and Low back pain, unspecified back pain laterality, with sciatica presence unspecified M54.5 [place] [address] 59809- 9574 Sep, Anxiety F41.9 and Low back pain, unspecified back pain laterality, with sciatica presence unspecified M54.5 [place] [address] 58117- 7755 Sep, Anxiety F41.9 [place] [address] 97990- 3125 Sep, Gastro-esophageal reflux disease without esophagitis K21.9 [facility] [address] [id number] Sep, Dental examination Z01.20 [place] [id number] [place] [address] 76377- 1393 Sep, Low back pain, unspecified back pain laterality, with sciatica presence unspecified M54.5 and Postoperative hypothyroidism E89.0 [place] [id number] [place] [address] 30955- 5831 Aug, Anxiety F41.9 [place] [address] 85424- 0565 Aug, [place] [address] 52273- 3980 Aug, Low back pain, unspecified back pain laterality, with sciatica presence unspecified M54.5 ; Other chronic pain G89.29 ; Thyroid cancer C73 and Postoperative hypothyroidism E89.0 [place] [id number] [place] [address] 17949- 0051 Jul, [place] [address] 97278- 9231 Jul, Anxiety F41.9 [place] [address] 00075- 8017 Jul, [place] [address] 30969- 5986 Jul, BMI 29.0-29.9,adult Z68.29 [place] [id number] [place] [address] 81445- 0958 Jul, [place] [address] 30923- 0365 Jul, BMI 30.0-30.9,adult Z68.30 [place] [id number] [place] [address] 84243- 1844 Jul, Low back pain, unspecified back pain laterality, with sciatica presence unspecified M54.5 and Anxiety F41.9 [place] [id number] [place] [address] 42924- 2676 Jun, 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 [facility] [id number] [place] [address] 23187- 4545 17 Jun, 2016 BMI 30.0-30.9,adult Z68.30 [facility] [address] 36783- 9949 14 Jun, 2016 [facility] [address] 672033- 3099 Jun, 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 ; Dysthymia F34.1 ; Encounter for immunization Z23 and Other chronic pain G89.29 [place] [address] 829685- 3769 06 Jun, 2016 Low back pain, unspecified back pain laterality, with sciatica presence unspecified M54.5 [place] [address] 19594- 5485 Jun, BMI 30.0-30.9,adult Z68.30 [facility] [address] 19419- 6178 Jun, Anxiety F41.9 [place] [address] 98240- 9347 May, 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 [facility] [address] 63103- 1216 May, Constipation, unspecified constipation type K59.00 [facility] [address] 04126- 1020 08 May, 2016 Low back pain, unspecified back pain laterality, with sciatica presence unspecified M54.5 [facility] [address] 69588- 4437 May, [facility] [address] 86089- 0759 07 May, 2016 Constipation, unspecified constipation type K59.00 [facility] [address] 85280- 1722 May, Anxiety F41.9 [place] [address] 64605- 6705 Apr, BMI 31.0-31.9,adult Z68.31 [place] [address] 14348- 5639 Apr, Thyroid goiter E04.9 [place] [address] 96581- 5034 Apr, [place] [address] 87540- 2902 Apr, Low back pain, unspecified back pain laterality, with sciatica presence unspecified M54.5 [place] [address] 95017- 6524 Apr, [place] [address] 34208- 2656 Apr, Constipation, unspecified constipation type K59.00 ; Thyroid nodule E04.1 ; Family history of colon cancer Z80.0 and 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 [place] [address] 97180- 8668 Apr, Anxiety F41.9 [place] [address] 78483- 4075 Mar, [place] [address] 26259- 2095 Mar, Low back pain, unspecified back pain laterality, with sciatica presence unspecified M54.5 [place] [address] 06938- 4905 Mar, BMI 32.0-32.9,adult Z68.32 [place] [address] 83810- 0860 Feb, Anxiety F41.9 [place] [id number] [place] [address] 93084- 8943 30 Feb, 2016 Depression, unspecified depression type F32.9 [place] [id number] [place] [address] 36179- 8417 Feb, BMI 32.0-32.9,adult Z68.32 [place] [id number] [place] [address] 09007- 1197 Feb, Low back pain, unspecified back pain laterality, with sciatica presence unspecified M54.5 [place] [id number] [place] [address] 00993- 3281 Feb, [place] [address] 34036- 7957 Feb, BMI 32.0-32.9,adult Z68.32 [place] [address] 70528- 5869 Feb, Anxiety F41.9 [place] [id number] [place] [address] 96505- 6155 January, BMI 32.0-32.9,adult Z68.32 [place] [id number] [place] [address] 80564- 7970 January, Low back pain, unspecified back pain laterality, with sciatica presence unspecified M54.5 ; Other chronic pain G89.29 ; Weight gain R63.5 and Rheumatoid arthritis, involving unspecified site, unspecified rheumatoid factor presence M06.9 [place] [id number] [place] [address] 38440- 1731 January, Low back pain, unspecified back pain laterality, with sciatica presence unspecified M54.5 [place] [id number] [place] [address] 57310- 8945 January, BMI 32.0-32.9,adult Z68.32 [place] [id number] [place] [address] 17681- 6053 January, BMI 32.0-32.9,adult Z68.32 [facility] [id number] [place] [address] 37329- 9911 January, BMI 32.0-32.9,adult Z68.32 [facility] [id number] [place] [address] 70152- 9367 Dec, Insomnia G47.00 and Dysthymia F34.1 [facility] [address] 51288- 5913 Dec, [facility] [address] 57323- 1750 Dec, Other chronic pain G89.29 ; Neuropathy G62.9 and Dysthymia F34.1 [facility] [id number] [place] [address] 62895- 4261 Dec, [facility] [id number] [place] [address] 94753- 3868 Nov, [facility] [id number] [place] [address] 60244- 0207 Nov, [facility] [id number] [place] [address] 44266- 2056 Nov, [facility] [id number] [place] [address] 36245- 8682 Oct, [facility] [id number] [place] [address] 49648- 3890 Oct, [facility] [id number] [place] [address] 62015- 4705 Oct, Family history of diabetes mellitus Z83.3 [facility] [id number] [place] [address] 14825- 6198 Oct, [facility] [id number] [place] [address] 66195- 9338 Sep, [facility] [id number] [place] [address] 83589- 3651 Sep, Eye pain, right H57.11 and Other chronic pain G89.29 [facility] [id number] [place] [address] 27930- 1687 Sep, [facility] [address] 28828- 9679 Sep, [place] [address] 39860- 4889 Sep, 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 ; Neuropathy G62.9 ; Low back pain, unspecified back pain laterality, with sciatica presence unspecified M54.5 ; Gastro-esophageal reflux disease without esophagitis K21.9 and Encounter for long-term (current) use of other medications V58.69 [place] [address] 73322- 8838 Sep, [place] [address] 51797- 7536 Sep, [place] [address] 41202- 6774 Sep, [place] [id number] [place] [address] 81070- 8098 Sep, [place] [id number] [place] [address] 91965- 3669 Aug, [place] [id number] [place] [address] 27145- 3615 Aug, Family history of diabetes mellitus Z83.3 [place] [address] 74832- 4336 Aug, [place] [id number] [place] [address] 87312- 6717 Aug, [place] [id number] [place] [address] 39381- 8628 Aug, Family history of diabetes mellitus Z83.3 [facility] [id number] [place] [address] 95360- 9070 14 Aug, 2015 Weight gain R63.5 ; Edema, unspecified R60.9 ; Family history of diabetes mellitus Z83.3 and Gastroesophageal reflux disease with esophagitis K21.0 [facility] [id number] [place] [address] 41835- 9863 14 Aug, 2015 [facility] [id number] [place] [address] 20592- 6453 Aug, [facility] [id number] [place] [address] 76995- 0922 Jul, [place] [id number] [place] [address] 94989- 1123 Jul, [place] [id number] [place] [address] 11769- 6477 Jul, [facility] [id number] [place] [address] 06145- 0278 Jun, [facility] [id number] [place] [address] 05625- 9753 Jun, Nose pain J34.89 ; Encounter for immunization Z23 ; Screening for breast cancer Z12.39 and Encounter for long-term (current) use of other medications V58.69 [facility] [id number] [place] [address] 17681- 0781 Jun, [facility] [id number] [place] [address] 41302- 3715 May, [facility] [id number] [place] [address] 56436- 5712 18 May, 2015 [facility] [id number] [place] [address] 78137- 4879 May, [facility] [id number] [place] [address] 82758- 3860 May, [facility] [address] [facility] [id number] [place] [address]- 2592 May, [facility] [address] [facility] [id number] [place] [address]- 1655 May, [facility] [address] [facility] [id number] [place] [address]- 5803 May, [facility] [address] [facility] [id number] [place] [address]- 9608 Apr, [facility] [address] [facility] [id number] [place] [address]- 1770 Apr, [facility] [address] [facility] [id number] [place] [address]- 2391 Apr, [facility] [id number] [place] [address]- 1375 Mar, [facility] [id number] [address]- 4742 Mar, [facility] [id number] [address]- 6751 Mar, Lesion of left shoulder 709.9 [facility] [id number] [address]- 6558 Mar, [facility] [id number] [address]- 7255 Mar, [facility] [id number] [address]- 0347 Mar, [facility] [id number] [address]- 3671 Feb, [facility] [id number] [address]- 6170 Feb, [facility] [id number] [address]- 7543 Feb, Unspecified backache 724.5 ; Weight gain 783.1 ; Hypothyroid 244.9 ; Edema 782.3 and Diaphoresis 780.8 [facility] [address] [address]- 6669 18 Feb, 2015 [facility] [id number] [place] [address]- 3948 10 Feb, 2015 [facility] [id number] [place] [address] 90312- 8751 Feb, [facility] [id number] [place] [address], [place] [address]- 7250 Feb, [facility] [id number] [place] [address], [place] [address]- 0451 Feb, [facility] [id number] [place] [address]- 0674 January, [facility] [id number] [place] [address] 63272- 7632 January, [facility] [address] [address]- 3404 14 Dec, 2014 [facility] [address] [address]- 0288 Dec, [facility] [address] [address]- 7230 16 Nov, 2014 [facility] [address] [address]- 0732 16 Nov, 2014 [facility] [address] [address]- 7631 16 Nov, 2014 [facility] [address] [address]- 1051 16 Nov, 2014 [facility] [address] [address]- 8941 16 Nov, 2014 [facility] [address]- 2665 16 Nov, 2014 [facility] [place] [facility] [address] [id number] [place] [address]- 2765 Nov, [facility] [place] [facility] [address] [id number] [place] [address]- 4677 Nov, [facility] [place] [facility] [address] [id number] [place] [address]- 8557 Nov, [facility] [place] [facility] [address] [id number] [place] [address]- 9818 Nov, [facility] [place] [facility] [address] [id number] [place] [address]- 2454 05 Nov, 2014 [facility] [place] [facility] [address] [id number] [place] [address]- 2126 Nov, [facility] [place] [facility] [address] [id number] [place] [address]- 7716 Nov, [facility] [place] [facility] [address] [id number] [place] [address]- 4525 Oct, [facility] [place] [facility] [address] [id number] [place] [address]- 5154 Oct, [facility] [place] [facility] [address] [id number] [place] [address]- 5363 Sep, [facility] [place] [facility] [address] [id number] [place] [address]- 7037 Sep, [facility] [place] [facility] [address] [id number] [place] [address]- 4985 Aug, [facility] [place] [facility] [address] [id number] [place] [address]- 4658 Aug, [facility] [place] [facility] [address] [id number] [place] [address]- 0456 Aug, [facility] [place] [facility] [address] [id number] [place] [address]- 3873 Aug, [facility] [place] [facility] [address] [id number] [place] [address]- 8986 17 Aug, 2014 [facility] [place] [facility] [address] [id number] [place] [address] 17 Aug, 2014 [facility] [place] [facility] [address] [id number] [place] [address] Aug, [facility] [place] [facility] [address] [id number] [place] [address] Aug, [facility] [place] [facility] [address] [id number] [place] [address] Aug, [facility] [place] [facility] [address] [id number] [place] [address] Jul, [facility] [place] [facility] [address] [id number] [place] [address] Jul, [facility] [place] [facility] [address] [id number] [place] [address] Jul, [facility] [place] [facility] [address] [id number] [place] [address] Jul, [facility] [place] [facility] [address] [id number] [place] [address] Jul, [facility] [place] [facility] [address] [id number] [place] [address] Jul, [facility] [place] [facility] [address] [id number] [place] [address] Jul, [facility] [place] [facility] [address] [id number] [address] Jul, [facility] [place] [facility] [address] [id number] [place] [address] Jul, [facility] [place] [facility] [address] [id number] [place] [address] Jul, [facility] [place] [facility] [address] [id number] [place] [address] Jun, [facility] [place] [facility] [address] [id number] [place] [address] Jun, [facility] [place] [facility] [address] [id number] [place] [address] Jun, [facility] [place] [facility] [address] [id number] [place] [address] Jun, [facility] [place] [facility] [address] [id number] [place] [address] Jun, [facility] [place] [facility] [address] [id number] [place] [address] Jun, [facility] [place] [facility] [address] [id number] [place] [address] 30 May, 2013 [facility] [place] [facility] [address] [id number] [place] [address] 30 May, 2013 [facility] [place] [facility] [address] [id number] [place] [address] 29 May, 2013 [facility] [place] [facility] [address] [id number] [place] [address] 29 May, 2013 [facility] [place] [facility] [address] [address] [id number] [place] [address]48 24 May, 2013 [facility] [place] [facility] [address] [id number] [place] [address] 2549 24 May, 2013 [facility] [place] [facility] [address] [id number] [place] [address] 2545 22 May, 2013 [facility] [place] [facility] [address] [id number] [place] [address] 2543 22 Sep, 2013 [facility] [place] [facility] [address] [id number] [place] [address] 2546 05 Sep, 2013 [facility] [place] [facility] [address] [id number] [place] [address] 2546 05 Sep, 2013 [facility] [place] [facility] [address] [id number] [place] [address]- 2011 May, [facility] [place] [facility] [address] [id number] [place] [address]- 5703 May, [facility] [place] [facility] [address] [id number] [place] [address]- 2920 Apr, [facility] [place] [facility] [address] [id number] [place] [address]- 5464 Apr, [facility] [place] [facility] [address] [id number] [place] [address]- 2510 Apr, [facility] [place] [facility] [address] [id number] [place] [address]- 5835 Apr, [facility] [place] [facility] [address] [id number] [place] [address]- 7663 Apr, [facility] [place] [facility] [address] [id number] [place] [address]- 8049 Apr, [facility] [place] [facility] [address] [id number] [place] [address]- 2670 Apr, [facility] [place] [facility] [address] [id number] [place] [address]- 5400 Apr, [facility] [place] [facility] [address] [id number] [place] [address]- 4581 Apr, [facility] [place] [facility] [address] [id number] [address]- 85[address] Apr, [facility] [place] [facility] [address] [id number] [address]- 9917 Apr, [facility] [place] [facility] [address] [id number] [place] [address]- 4548 Apr, [facility] [place] [facility] [address] [id number] [place] [address]- 7843 Apr, [facility] [place] [facility] [address] [id number] [place] [address]- 6155 Apr, [facility] [place] [facility] [address] [id number] [place] [address]- 9242 Apr, [facility] [place] [facility] [address] [id number] [place] [address]- 7048 Apr, [facility] [place] [facility] [address] [id number] [place] [address]- 2943 Apr, [facility] [place] [facility] [address] [id number] [place] [address]- 1348 Apr, [facility] [place] [facility] [address] [id number] [place] [address]- 9966 Apr, [facility] [place] [facility] [address] [id number] [place] [address]- 7644 Apr, [facility] [place] [facility] [address] [id number] [place] [address]- 3952 Apr, [facility] [place] [facility] [address] [id number] [place] [address]- 3769 Apr, [facility] [place] [facility] [address] [id number] [place] [address]- 9441 Apr, [facility] [place] [facility] [address] [id number] [place] [address]- 3787 Mar, [facility] [place] [facility] [address] [id number] [place] [address]- 2928 Mar, [facility] [place] [facility] [address] [id number] [place] [address]- 0407 Mar, [facility] [place] [facility] [address] [id number] [place] [address]- 6166 Mar, [facility] [place] [facility] [address] [id number] [place] [address]- 0243 Mar, [facility] [place] [facility] [address] [id number] [place] [address]- 3872 Mar, [facility] [place] [facility] [address] [id number] [place] [address]- 3281 Mar, [facility] [place] [facility] [address] [id number] [place] [address]- 3909 17 Mar, 2013 [facility] [place] [facility] [address] [id number] [place] [address]- 7867 Mar, [facility] [place] [facility] [address] [id number] [place] [address]- 1988 Mar, [facility] [place] [facility] [address] [id number] [place] [address]- 7317 Mar, [facility] [place] [facility] [address] [id number] [place] [address]- 9517 Mar, [facility] [place] [facility] [address] [id number] [place] [address]- 2731 Mar, [facility] [place] [facility] [address] [id number] [place] [address]- 3757 Mar, [facility] [place] [facility] [address] [id number] [place] [address]- 6443 Feb, [facility] [place] [facility] [address] [id number] [place] [address]- 3156 Feb, [facility] [place] [facility] [address] [id number] [place] [address]- 3161 Feb, [facility] [place] [facility] [address] [id number] [place] [address]- 5070 Feb, [facility] [place] [facility] [address] [id number] [place] [address]- 4374 Feb, [facility] [place] [facility] [address] [id number] [place] [address]- 0626 Feb, [facility] [place] [facility] [address] [id number] [place] [address]- 9380 Feb, [facility] [place] [facility] [address] [id number] [place] [address]- 1256 Feb, [facility] [place] [facility] [address] [id number] [place] [address]- 9733 Dec, [facility] [place] [facility] [address] [id number] [place] [address]- 3123 Dec, [facility] [place] [facility] [address] [id number] [place] [address]- 3198 Dec, [facility] [place] [facility] [address] [id number] [place] [address]- 7677 Dec, [facility] [place] [facility] [address] [id number] [place] [address]- 7313 Nov, [facility] [place] [facility] [address] [id number] [place] [address]- 9697 Nov, [facility] [place] [facility] [address] [id number] [place] [address]- 0286 Nov, [facility] [place] [facility] [address] [facility] [id number] [place] [address]- 6114 Nov, [facility] [place] [facility] [address] [id number] [place] [address]- 3144 Nov, [facility] [place] [facility] [address] [id number] [place] [address]- 7520 Nov, [facility] [place] [facility] [address] [facility] [id number] [place] [address]- 3954 Nov, [facility] [place] [facility] [address] [id number] [place] [address]- 5436 Oct, [facility] [place] [facility] [address] [id number] [place] [address]- 1475 Oct, [facility] [place] [facility] [address] [id number] [place] [address]- 6455 Oct,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
--- OUTSIDE RECORDS SUMMARY | 2018-06-07 11:47 | XMS REPORT ---
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
--- OUTSIDE RECORDS SUMMARY | 2018-06-07 11:48 | XMS REPORT ---
Author Author ELISEO BENDER Organization [employer] Address Unknown Phone Unavailable Care Team Providers Care Certified Scrum Master Name Role Phone ELISEO BENDER CP Unavailable [...] reflux disease without esophagitis K21.9 Active Medications No Known Medications Results No Known Results Summary Purpose [employer] Submission
--- OUTSIDE RECORDS SUMMARY | 2018-06-07 11:48 | XMS REPORT ---
Author Author ELISEO BENDER [facility] Address [address] [place] [address] Care Team Providers Care It Desktop Support Specialist Name Role Phone ELISEO BENDER Unavailable PROBLEMS Type Condition ICD9-CM Code VYW09-HY Code Onset Dates Condition Status SNOMED Code Problem Chest pain, unspecified type R07.9 Active 66468682 Problem Depression, unspecified depression type F32.9 Active 51424152 Problem Anxiety F41.9 Active 80605611 Problem BMI 30.0-30.9,adult Z68.30 Active 948991693 Problem Moderate episode of recurrent major depressive disorder F33.1 Active 665336147 Problem Thyroid cancer C73 Active 323413595 Problem Postoperative hypothyroidism E89.0 Active 87466038 Problem BMI 31.0-31.9,adult Z68.31 Active 671273442 Problem Other atopic dermatitis L20.89 Active 40155816 Problem Low back pain, unspecified back pain laterality, with sciatica presence unspecified M54.5 Active 355509119 Problem Neuropathy G62.9 Active 360452936 Problem Other chronic pain G89.29 Active 95247357 Problem Dysthymia F34.1 Active 05278181 Problem 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 Active 85575275 Problem Insomnia G47.00 Active 921064354 Problem Gastro-esophageal reflux disease without esophagitis K21.9 Active 992468020 Problem Rheumatoid arthritis, involving unspecified site, unspecified rheumatoid factor presence M06.9 Active 83964571 ALLERGIES No Information ENCOUNTERS Encounter Location Date Diagnosis [facility] [address] [facility] [id number] [address] Mar, Low back pain, unspecified back pain laterality, with sciatica presence unspecified M54.5 [facility] [address] [facility] [id number], [place] [address] Mar, Low back pain, unspecified back pain laterality, with sciatica presence unspecified M54.5 ; Rheumatoid arthritis, involving unspecified site, unspecified rheumatoid factor presence M06.9 ; Breast cancer screening Z12.39 and Moderate episode of recurrent major depressive disorder F33.1 [facility] [address] [id number] [place] [address] 99455- 1501 Feb, Low back pain, unspecified back pain laterality, with sciatica presence unspecified M54.5 [facility] [address] 68487- 6732 January, BMI 30.0-30.9,adult Z68.30 [facility] [address] 926321- 8197 January, Low back pain, unspecified back pain laterality, with sciatica presence unspecified M54.5 [facility] [address] [id number] [place] [address] 48294- 3558 January, [facility] [address] 41236- 3756 Dec, Low back pain, unspecified back pain laterality, with sciatica presence unspecified M54.5 [facility] [address] [id number] [place] [address] 51739- 2252 Nov, Low back pain, unspecified back pain laterality, with sciatica presence unspecified M54.5 [facility] [id number] [place] [address] 90581- 4531 Nov, [facility] [id number] [place] [address] 14261- 8044 Nov, Low back pain, unspecified back pain laterality, with sciatica presence unspecified M54.5 ; Other chronic pain G89.29 ; Rheumatoid arthritis, involving unspecified site, unspecified rheumatoid factor presence M06.9 and Dysthymia F34.1 [facility] [id number] [place] [address] 75396- 1258 Oct, Low back pain, unspecified back pain laterality, with sciatica presence unspecified M54.5 [facility] [id number] [place] [address] 71940- 9409 Sep, Low back pain, unspecified back pain laterality, with sciatica presence unspecified M54.5 [facility] [id number] [place] [address] 37285 -5791 Sep, Fever R50.9 and URI, acute J06.9 [facility] [id number] [place] [address] 56225- 6725 Aug, [facility] [id number] [place] [address] 27482- 3472 Aug, Low back pain, unspecified back pain laterality, with sciatica presence unspecified M54.5 [facility] [address] [address] [id number] [place] [address] 82758- 6083 Jul, Low back pain, unspecified back pain laterality, with sciatica presence unspecified M54.5 [facility] [id number] [place] [address] 25434 -8070 Jul, Nausea R11.0 ; Fever and chills R50.9 ; UTI symptoms R39.9 and Hematuria, unspecified type R31.9 [facility] [id number] [place] [address] 43256- 8944 Jul, [facility] [id number] [place] [address] 03567- 7462 Jun, Low back pain, unspecified back pain laterality, with sciatica presence unspecified M54.5 [facility] [id number] [place] [address] 97597- 9756 Jun, BMI 31.0-31.9,adult Z68.31 [facility] [id number] [place] [address] 88333- 2921 Jun, Neuropathy G62.9 [facility] [id number] [place] [address] 34571- 2410 Jun, Low back pain, unspecified back pain laterality, with sciatica presence unspecified M54.5 [facility] [address] 11196- 1400 03 Jun, 2017 Encounter for immunization Z23 [facility] [address] 77974- 3204 03 Jun, 2017 BMI 31.0-31.9,adult Z68.31 [facility] [address] 93277- 1616 Jun, Low back pain, unspecified back pain laterality, with sciatica presence unspecified M54.5 [facility] [address] 29677- 8300 May, Low back pain, unspecified back pain laterality, with sciatica presence unspecified M54.5 ; Other chronic pain G89.29 ; Plantar fasciitis M72.2 ; Rheumatoid arthritis, involving unspecified site, unspecified rheumatoid factor presence M06.9 and History of alcohol abuse Z87.898 [facility] [address] 41477- 5676 May, Anxiety F41.9 and Low back pain, unspecified back pain laterality, with sciatica presence unspecified M54.5 [facility] [id number] [place] [address] 15931- 5632 Apr, Anxiety F41.9 and Low back pain, unspecified back pain laterality, with sciatica presence unspecified M54.5 [facility] [address] [id number] [place] [address] 61534- 8152 Mar, Acute right-sided low back pain without sciatica M54.5 ; Rash R21 ; Right flank pain R10.9 ; Lipid screening Z13.220 ; Other chronic pain G89.29 ; 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 ; Postoperative hypothyroidism E89.0 and Breast cancer screening Z12.39 [facility] [address] 35782- 5092 Mar, Anxiety F41.9 and Low back pain, unspecified back pain laterality, with sciatica presence unspecified M54.5 [facility] [address] [id number] [place] [address] 55154- 2794 13 Mar, 2017 Acute right-sided low back pain without sciatica M54.5 [facility] [address] 12478- 9314 07 Mar, 2017 Anxiety F41.9 [facility] [address] 51804- 1510 Feb, Right flank pain R10.9 and Anxiety F41.9 [facility] [address] 94903- 8783 Feb, BMI 31.0-31.9,adult Z68.31 [facility] [address] 95013- 8581 Feb, Low back pain, unspecified back pain laterality, with sciatica presence unspecified M54.5 and Anxiety F41.9 [facility] [address] [address] [id number] [place] [address] 38216 -9886 January, Abscess of toe of right foot L02.611 and Other atopic dermatitis L20.89 [facility] [address] [id number] [place] [address] 06078- 2610 January, Low back pain, unspecified back pain laterality, with sciatica presence unspecified M54.5 and Anxiety F41.9 [facility] [address] [address] [id number] [place] [address] 00173- 9997 Dec, Anxiety F41.9 and Low back pain, unspecified back pain laterality, with sciatica presence unspecified M54.5 [facility] [id number] [place] [address] 52080 -1050 Dec, Scabies B86 [facility] [address] 93409- 2057 Nov, Rash R21 ; Other chronic pain G89.29 ; 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 ; Postoperative hypothyroidism E89.0 ; Breast cancer screening Z12.39 and Lipid screening Z13.220 [place] [address] [place]- 2742 Nov, Anxiety F41.9 and Low back pain, unspecified back pain laterality, with sciatica presence unspecified M54.5 [facility] [address] 53065- 8861 Oct, Anxiety F41.9 and Low back pain, unspecified back pain laterality, with sciatica presence unspecified M54.5 [facility] [address] [place] 770706- 5732 Sep, Anxiety F41.9 and Low back pain, unspecified back pain laterality, with sciatica presence unspecified M54.5 [facility] [address] 35644- 2086 Sep, Anxiety F41.9 [facility] [address] 26250- 9292 Sep, Gastro-esophageal reflux disease without esophagitis K21.9 [facility] [address] [id number] Sep, Dental examination Z01.20 [facility] [address] 53851- 7393 Sep, Low back pain, unspecified back pain laterality, with sciatica presence unspecified M54.5 and Postoperative hypothyroidism E89.0 [facility] [address] 34661- 6784 Aug, Anxiety F41.9 [facility] [place] [address] [place]70707- 4469 Aug, [facility] [address] 40318- 1936 Aug, Low back pain, unspecified back pain laterality, with sciatica presence unspecified M54.5 ; Other chronic pain G89.29 ; Thyroid cancer C73 and Postoperative hypothyroidism E89.0 [facility] [address] 35292- 2600 Jul, [facility] [address] 98022- 7843 Jul, Anxiety F41.9 [facility] [address] 84870- 7792 Jul, [facility] [address] 34358- 0415 Jul, BMI 29.0-29.9,adult Z68.29 [facility] [address] 82286- 5402 Jul, [facility] [address] 27612- 3465 Jul, BMI 30.0-30.9,adult Z68.30 [facility] [address] 00992- 4680 Jul, Low back pain, unspecified back pain laterality, with sciatica presence unspecified M54.5 and Anxiety F41.9 [facility] [address] 14123- 0776 Jun, 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 [facility] [address] 20876- 7864 Jun, BMI 30.0-30.9,adult Z68.30 [facility] [address] 86205- 9850 Jun, [facility] [address] 44362- 7873 Jun, 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 ; Dysthymia F34.1 ; Encounter for immunization Z23 and Other chronic pain G89.29 [facility] [address] 64644- 1025 Jun, Low back pain, unspecified back pain laterality, with sciatica presence unspecified M54.5 [facility] [address] 66915- 6644 Jun, BMI 30.0-30.9,adult Z68.30 [facility] [address] 28730- 2312 Jun, Anxiety F41.9 [facility] [address] 16271- 1360 29 May, 2016 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 [facility] [place] [address] 23963- 8687 May, Constipation, unspecified constipation type K59.00 [facility] [address] 75317- 1816 May, Low back pain, unspecified back pain laterality, with sciatica presence unspecified M54.5 [facility] [address] 51894- 0878 08 May, 2016 [facility] [address] 44524- 6205 May, Constipation, unspecified constipation type K59.00 [facility] [address] 53790- 9848 May, Anxiety F41.9 [facility] [address] 13688- 3751 Apr, BMI 31.0-31.9,adult Z68.31 [facility] [address] 73368- 8966 Apr, Thyroid goiter E04.9 [facility] [address] 61423- 8833 Apr, [facility] [address] 36475- 0107 Apr, Low back pain, unspecified back pain laterality, with sciatica presence unspecified M54.5 [facility] [address] [place] [id number] [place] [address] 45832- 7441 Apr, [facility] [place] [address] [place] [id number] [place] [address] 76861- 1692 Apr, Constipation, unspecified constipation type K59.00 ; Thyroid nodule E04.1 ; Family history of colon cancer Z80.0 and 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 [facility] [place] [address] [place] [id number] [place] [address] 36027- 8764 Apr, Anxiety F41.9 [facility] [address] 06493- 0477 Mar, [facility] [address] 26288- 0003 Mar, Low back pain, unspecified back pain laterality, with sciatica presence unspecified M54.5 [facility] [address] [place] [id number] [place] [address] 33093- 0186 Mar, BMI 32.0-32.9,adult Z68.32 [facility] [place] [address] [place] [id number] [place] [address] 93020- 2865 Feb, Anxiety F41.9 [facility] [address] [id number] [place] [address] 64985- 5830 Feb, Depression, unspecified depression type F32.9 [facility] [address] [place] [id number] [place] [address] 82184- 7071 Feb, BMI 32.0-32.9,adult Z68.32 [facility] [address] [place] [id number] [place] [address] 49775- 4979 16 Feb, 2016 Low back pain, unspecified back pain laterality, with sciatica presence unspecified M54.5 [facility] [address] [place] [id number] [place] [address] 39714- 8660 Feb, [facility] [address] [place] [id number] [place] [address] 42767- 0963 Feb, BMI 32.0-32.9,adult Z68.32 [facility] [place] [address] [place] [id number] [place] [address] 90555- 4309 Feb, Anxiety F41.9 [facility] [address] [place] [id number] [place] [address] 98108- 6662 January, BMI 32.0-32.9,adult Z68.32 [facility] [address] [place] [id number] [place] [address] 75638- 2253 January, Low back pain, unspecified back pain laterality, with sciatica presence unspecified M54.5 ; Other chronic pain G89.29 ; Weight gain R63.5 and Rheumatoid arthritis, involving unspecified site, unspecified rheumatoid factor presence M06.9 [facility] [place] [address] [place] [id number] [place] [address] 22083- 8578 January, Low back pain, unspecified back pain laterality, with sciatica presence unspecified M54.5 [facility] [address] [place] [id number] [place] [address] 27859- 7879 January, BMI 32.0-32.9,adult Z68.32 [facility] [place] [address] [place] [id number] [place] [address] 23526- 8729 January, BMI 32.0-32.9,adult Z68.32 [facility] [place] [address] [id number] [place] [address] 53944- 4193 January, BMI 32.0-32.9,adult Z68.32 [facility] [place] [address] [place] [id number] [place] [address] 81632- 7061 Dec, Insomnia G47.00 and Dysthymia F34.1 [facility] [place] [address] [place] [id number] [place] [address] 69645- 7714 Dec, [facility] [address] 57754- 1189 Dec, Other chronic pain G89.29 ; Neuropathy G62.9 and Dysthymia F34.1 [facility] [id number] [place] [address] 60036- 1305 Dec, [facility] [id number] [place] [address] 64888- 1089 Nov, [facility] [address] 58384- 7202 Nov, [facility] [id number] [place] [address] 89485- 9435 Nov, [facility] [id number] [place] [address] 39545- 8565 Oct, [facility] [id number] [place] [address] 50239- 5648 Oct, [facility] [id number] [place] [address] 48744- 8527 Oct, Family history of diabetes mellitus Z83.3 [facility] [id number] [place] [address] 56556- 4919 Oct, [facility] [id number] [place] [address] 89338- 2858 Sep, [facility] [id number] [place] [address] 76287- 1573 Sep, Eye pain, right H57.11 and Other chronic pain G89.29 [facility] [id number] [place] [address] 75306- 4750 Sep, [facility] [id number] [place] [address] 98747- 1464 Sep, [facility] [id number] [place] [address] 78784- 2731 Sep, 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 ; Neuropathy G62.9 ; Low back pain, unspecified back pain laterality, with sciatica presence unspecified M54.5 ; Gastro-esophageal reflux disease without esophagitis K21.9 and Encounter for long-term (current) use of other medications V58.69 [facility] [place] [address] [id number] [place] [address] 43176- 3231 Sep, [facility] [id number] [place] [address] 99390- 1772 Sep, [facility] [address] [id number] [place] [address] 45476- 8931 Sep, [facility] [address] [id number] [place] [address] 85458- 4605 Sep, [facility] [address] [id number] [place] [address] 63777- 6774 Aug, [facility] [address] [place] [id number] [place] [address] 42744- 6996 Aug, Family history of diabetes mellitus Z83.3 [facility] [address] [id number] [place] [address] 81341- 3470 Aug, [facility] [address] [place] [id number] [place] [address] 24666- 6664 Aug, [facility] [place] [address] [place] [id number] [place] [address] 62810- 6470 Aug, Family history of diabetes mellitus Z83.3 [facility] [address] [place] [id number] [place] [address] 84870- 8357 Aug, Weight gain R63.5 ; Edema, unspecified R60.9 ; Family history of diabetes mellitus Z83.3 and Gastroesophageal reflux disease with esophagitis K21.0 [facility] [address] [place] [id number] [place] [address] 70174- 9304 Aug, [facility] [address] [id number] [place] [address] 67916- 6294 Aug, [place] [address] [place] [id number] [place] [address] 19585- 5765 Jul, [facility] [address] [address]- 3034 Jul, [facility] [id number] [place] [address] 72159- 2878 Jul, [facility] [id number] [place] [address] 03781- 8350 Jun, [facility] [id number] [place] [address] 67136- 0691 Jun, Nose pain J34.89 ; Encounter for immunization Z23 ; Screening for breast cancer Z12.39 and Encounter for long-term (current) use of other medications V58.69 [facility] [address] [address]- 9764 Jun, [facility] [id number] [place] [address] 46626- 7769 May, [facility] [id number] [address]- 9378 18 May, 2015 [facility] [id number] [place] [address] 95061- 9004 May, [facility] [address] [address]- 2177 17 May, 2015 [facility] [address] [address]- 0246 May, [facility] [address] [address]- 5954 May, [facility] [id number] [place] [address] 22424- 8688 May, [facility] [address] [address]- 2146 Apr, [facility] [address] [place] [address]- 5862 Apr, [facility] [address] [address]- 5493 Apr, [facility] [address] [address]- 4630 Mar, [facility] [address] [address]- 8729 Mar, [facility] [id number] [place] [address] 57833- 3017 Mar, Lesion of left shoulder 709.9 [facility] [address] [address]- 8557 Mar, [facility] [id number] [place] [address] 12101- 9831 Mar, [facility] [id number] [place] [address] 48400- 7950 Mar, [facility] [id number] [place] [address] 20990- 1243 Feb, [facility] [address], [place] [address]- 3809 Feb, [facility] [address] [address]- 3924 Feb, Unspecified backache 724.5 ; Weight gain 783.1 ; Hypothyroid 244.9 ; Edema 782.3 and Diaphoresis 780.8 [facility] [address] [address]- 0891 Feb, [facility] [address] [address]- 4221 Feb, [facility] [id number] [place] [address]- 4657 Feb, [facility] [address] [place] [address]- 1040 Feb, [facility] [address] [place] [address]- 0619 Feb, [facility] [place] [facility] [address] [id number] [place] [address]- 8242 January, [facility] [place] [facility] [address] [id number] [place] [address]- 0116 January, [facility] [place] [facility] [address] [id number] [place] [address]- 7332 14 Dec, 2014 [facility] [place] [facility] [address] [id number] [place] [address]- 6050 13 Dec, 2014 [facility] [place] [facility] [address] [id number] [place] [address]- 9202 16 Nov, 2014 [facility] [place] [facility] [address] [id number] [place] [address]- 2280 16 Nov, 2014 [facility] [place] [facility] [address] [id number] [place] [address]- 0370 16 Nov, 2014 [facility] [place] [facility] [address] [id number] [place] [address] 16 Nov, 2014 [facility] [place] [facility] [address] [id number] [place] [address] 16 Nov, 2014 [facility] [place] [facility] [address] [id number] [place] [address] 16 Nov, 2014 [facility] [place] [facility] [address] [id number] [place] [address] Nov, [facility] [place] [facility] [address] [id number] [place] [address] Nov, [facility] [place] [facility] [address] [id number] [place] [address] Nov, [facility] [place] [facility] [address] [id number] [place] [address] Nov, [facility] [place] [facility] [address] [id number] [place] [address] 05 Nov, 2014 [facility] [place] [facility] [address] [id number] [place] [address] Nov, [facility] [place] [facility] [address] [id number] [id number] [address] Nov, [facility] [place] [facility] [address] [id number] [place] [address] Oct, [facility] [place] [facility] [address] [id number] [place] [address] Oct, [facility] [place] [facility] [address] [id number] [place] [address] Sep, [facility] [place] [facility] [address] [id number] [place] [address] Sep, [facility] [place] [facility] [address] [id number] [place] [address] Aug, [facility] [place] [facility] [address] [id number] [place] [address] Aug, [facility] [place] [facility] [address] [id number] [place] [address] Aug, [facility] [place] [facility] [address] [id number] [place] [address] Aug, [facility] [place] [facility] [address] [id number] [place] [address] Aug, [facility] [place] [facility] [address] [id number] [place] [address] 17 Aug, 2014 [facility] [place] [facility] [address] [id number] [place] [address] 8888 Aug, [facility] [place] [facility] [address] [id number] [place] [address] 7306 Aug, [facility] [place] [facility] [address] [id number] [place] [address] 9576 Aug, [facility] [place] [facility] [address] [id number] [place] [address] 1089 Jul, [facility] [place] [facility] [address] [id number] [place] [address] 5220 Jul, [facility] [place] [facility] [address] [id number] [place] [address]- 9835 Jul, [facility] [place] [facility] [address] [id number] [place] [address] 5342 Jul, [facility] [place] [facility] [address] [id number] [place] [address] 9770 Jul, [facility] [place] [facility] [address] [id number] [place] [address]- 0261 Jul, [facility] [place] [facility] [address] [id number] [place] [address]- 1507 Jul, [facility] [place] [facility] [address] [id number] [place] [address] 8150 Jul, [facility] [place] [facility] [address] [id number] [place] [address]- 6631 Jul, [facility] [place] [facility] [address] [id number] [place] [address]- 7989 Jul, [facility] [place] [facility] [address] [id number] [place] [address]- 4888 Jun, [facility] [place] [facility] [address] [id number], [place] [address] 8979 Jun, [facility] [place] [facility] [address] [id number], [place] [address] 5837 Jun, [facility] [place] [facility] [address] [id number] [place] [address]- 0946 Jun, [facility] [place] [facility] [address] [id number], [place] [address] 3164 Jun, [facility] [place] [facility] [address] [id number], [place] [address] 6986 Jun, [facility] [place] [facility] [address] [id number] [place] [address]- 3046 30 Sep, 2013 [facility] [place] [facility] [address] [id number] [place] [address] 2546 30 Sep, 2013 [facility] [place] [facility] [address] [id number] [place] [address] 2546 29 May, 2013 [facility] [place] [facility] [address] [id number] [place] [address] 2546 29 May, 2013 [facility] [place] [facility] [address] [id number] [place] [address] 2546 24 May, 2013 [facility] [place] [facility] [address] [id number] [place] [address] 2543 24 May, 2013 [facility] [place] [facility] [address] [id number] [place] [address] 2547 22 May, 2013 [facility] [place] [facility] [address] [id number] [place] [address]- 7186 22 May, 2013 [facility] [place] [facility] [address] [id number] [place] [address] 2540 05 May, 2013 [facility] [place] [facility] [address] [id number] [place] [address] 2543 05 May, 2013 [facility] [place] [facility] [address] [id number] [place] [address] 2544 02 May, 2013 [facility] [place] [facility] [address] [id number] [place] [address] 2546 May, 2013 [facility] [place] [facility] [address] [id number] [place] [address]- 2543 Apr, [facility] [place] [facility] [address] [id number] [place] [address] 2544 Apr, [facility] [place] [facility] [address] [id number] [place] [address]- 2544 Apr, [facility] [place] [facility] [address] [id number] [place] [address]- 254 Apr, [facility] [place] [facility] [address] [id number] [place] [address]- 4748 Apr, [facility] [place] [facility] [address] [id number] [place] [address]- 0360 Apr, [facility] [place] [facility] [address] [id number] [place] [address]- 2783 Apr, [facility] [place] [facility] [address] [id number] [place] [address]- 8611 Apr, [facility] [place] [facility] [address] [id number] [place] [address]- 5864 Apr, [facility] [place] [facility] [address] [id number] [place] [address]- 7334 Apr, [facility] [place] [facility] [address] [id number] [place] [address]- 1464 Apr, [facility] [place] [facility] [address] [id number] [place] [address]- 5127 Apr, [facility] [place] [facility] [address] [id number] [place] [address]- 9005 Apr, [facility] [place] [facility] [address] [id number] [place] [address]- 8325 Apr, [facility] [place] [facility] [address] [id number] [place] [address]- 3583 Apr, [facility] [place] [facility] [address] [id number] [place] [address]- 6799 Apr, [facility] [place] [facility] [address] [id number] [place] [address]- 7946 Apr, [facility] [place] [facility] [address] [id number] [place] [address]- 2044 Apr, [facility] [place] [facility] [address] [id number] [place] [address]- 8108 Apr, [facility] [place] [facility] [address] [id number] [place] [address]- 1895 Apr, [facility] [place] [facility] [address] [id number] [place] [address]- 6972 Apr, [facility] [place] [facility] [address] [id number] [place] [address]- 9422 Apr, [facility] [place] [facility] [address] [id number] [place] [address]- 9076 Apr, [facility] [place] [facility] [address] [id number] [place] [address]- 2172 Mar, [facility] [place] [facility] [address] [id number] [place] [address]- 3456 Mar, [facility] [place] [facility] [address] [id number] [place] [address]- 1527 Mar, [facility] [place] [facility] [address] [id number] [place] [address]- 6517 Mar, [facility] [place] [facility] [address] [id number] [place] [address]- 6117 Mar, [facility] [place] [facility] [address] [id number] [place] [address]- 1934 Mar, [facility] [place] [facility] [address] [id number] [place] [address]- 0878 Mar, [facility] [place] [facility] [address]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
--- OUTSIDE RECORDS SUMMARY | 2018-06-07 11:49 | XMS REPORT ---
Author Author GAURAV MEDEROS Organization [employer] Address Unknown Phone Unavailable Care Team Providers Care Crop Scout Name Role Phone GAURAV MEDEROS CP Unavailable Allergies No Known Allergies Problems [...] Unspecified myalgia and myositis 729.1 Active Medications No Known Medications Results No Known Results Summary Purpose [employer] Submission
--- OUTSIDE RECORDS SUMMARY | 2018-06-07 11:49 | XMS REPORT ---
Author Author ELISEO BENDER [facility] Address [address] [place] [address] Care Team Providers Care Trimming Department Blocker Name Role Phone ELISEO BENDER Unavailable PROBLEMS Type Condition ICD9-CM Code DBS85-ZA Code Onset Dates Condition Status SNOMED Code Problem Insomnia G47.00 Active 394116505 Problem Chest pain, unspecified type R07.9 Active 25743576 Problem Rheumatoid arthritis, involving unspecified site, unspecified rheumatoid factor presence M06.9 Active 55727197 Problem Other atopic dermatitis L20.89 Active 65451671 Problem Thyroid cancer C73 Active 883955215 Problem Depression, unspecified depression type F32.9 Active 97060798 Problem Anxiety F41.9 Active 01934930 Problem Postoperative hypothyroidism E89.0 Active 01112984 Problem BMI 30.0-30.9,adult Z68.30 Active 524845962 Problem Neuropathy G62.9 Active 706188472 Problem 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 Active 89177585 Problem Gastro-esophageal reflux disease without esophagitis K21.9 Active 467911581 Problem Other chronic pain G89.29 Active 95591929 Problem Low back pain, unspecified back pain laterality, with sciatica presence unspecified M54.5 Active 948639281 Problem Dysthymia F34.1 Active 77371534 ALLERGIES Unknown Allergies SOCIAL HISTORY No smoking Hx information available PLAN OF CARE VITAL SIGNS MEDICATIONS Medication Instructions Dosage Frequency Start Date End Date Duration Status Alprazolam 0.25 MG Orally 2 times a day 1 tablet 12h 28 days Active RESULTS No Results PROCEDURES No Known procedures IMMUNIZATIONS No Known Immunizations
--- OUTSIDE RECORDS SUMMARY | 2018-06-07 11:49 | XMS REPORT ---
Author Author ELISEO BENDER Organization [employer] Address Unknown Phone Unavailable Care Team Providers Care Attraction Worker Name Role Phone ELISEO BENDER CP Unavailable Allergies No Known Allergies Problems Problem Type Condition Code Onset Dates Condition Status Problem Other malaise and fatigue 780.79 Active Problem Edema 782.3 Active Problem Basal cell carcinoma of skin of trunk, except scrotum 173.51 Active Problem Cervicalgia 723.1 Active Problem Costochondritis 733.6 Active Problem Other chronic allergic conjunctivitis 372.14 Active Problem Unspecified breast screening V76.10 Active Problem Special screening examination, human papillomavirus [HPV] V73.81 Active Problem 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 Active Problem Neuropathy G62.9 Active Problem Rheumatoid arthritis 714.0 Active Problem Memory loss 780.93 Active Problem Other chronic pain G89.29 Active Problem Chest pain, unspecified 786.50 Active Problem Hypertrophy of uterus 621.2 Active Problem Lump or mass in breast 611.72 Active Problem Low back pain, unspecified back pain laterality, with sciatica presence unspecified M54.5 Active Problem Gastro-esophageal reflux disease without esophagitis K21.9 Active Problem Encounter for long-term (current) use of other medications V58.69 Active Problem Dysuria 788.1 Active Problem Pain in joint, shoulder region 719.41 Active Problem Unspecified hereditary and idiopathic peripheral neuropathy 356.9 Active Problem Special screening for malignant neoplasms, colon V76.51 Active Problem Restless legs syndrome [RLS] 333.94 Active Problem Unspecified myalgia and myositis 729.1 Active Problem Unspecified backache 724.5 Active Medications No Known Medications Results No Known Results Summary Purpose [employer] Submission
--- OUTSIDE RECORDS SUMMARY | 2018-06-07 11:49 | XMS REPORT ---
Author Author ELISEO BENDER Organization [employer] Address Unknown Phone Unavailable Care Team Providers Care Wood Products Manufacturer Name Role Phone ELISEO BENDER CP Unavailable [...] Start Date End Date Status Dosage Lisinopril [facility] [address]-23 20 MG Orally Once a day 1 tablet Results No Known Results Summary Purpose [employer] Submission
--- OUTSIDE RECORDS SUMMARY | 2018-06-07 11:49 | XMS REPORT ---
Author Author ELISEO BENDER Organization [employer] Address Unknown Phone Unavailable Care Team Providers Care Solid Surface Fabricator Name Role Phone ELISEO BENDER CP Unavailable Allergies No Known Allergies Problems Problem Type Condition Code Onset Dates Condition Status Problem Neuropathy G62.9 Active Problem Other chronic pain G89.29 Active Problem 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 Active Problem Depression, unspecified depression type F32.9 Active Problem Anxiety F41.9 Active Problem BMI 30.0-30.9,adult Z68.30 Active Problem Insomnia G47.00 Active Problem Dysthymia F34.1 Active Problem Chest pain, unspecified type R07.9 Active Problem Rheumatoid arthritis, involving unspecified site, unspecified rheumatoid factor presence M06.9 Active Assessment Anxiety F41.9 Active Assessment Low back pain, unspecified back pain laterality, with sciatica presence unspecified M54.5 Active Problem Unspecified hereditary and idiopathic peripheral neuropathy 356.9 Active Problem Unspecified backache 724.5 Active Problem Other malaise and fatigue 780.79 Active Problem Gastro-esophageal reflux disease without esophagitis K21.9 Active Problem Rheumatoid arthritis 714.0 Active Problem Low back pain, unspecified back pain laterality, with sciatica presence unspecified M54.5 Active Medications Medication Code System Code Instructions Start Date End Date Status Dosage Alprazolam [facility] [address]-80 0.25 MG Orally 2 times a day 1 tablet Results No Known Results Summary Purpose [employer] Submission
--- OUTSIDE RECORDS SUMMARY | 2018-06-07 11:49 | XMS REPORT ---
Author Author ELISEO BENDER Organization [employer] Address Unknown Phone Unavailable Care Team Providers Care Cash Applications Associate Name Role Phone ELISEO BENDER CP Unavailable [...] Active Problem Unspecified backache 724.5 Active Medications Medication Code System Code Instructions Start Date End Date Status Dosage Alprazolam [place] [address]-72 0.25 MG TAKE ONE TABLET BY MOUTH THREE TIMES DAILY NEEDED FOR ANXIETY tramadol NDC 0 50 mg November 16, 2014 2tablet by Oral route every 8 hours Results No Known Results Summary Purpose [employer] Submission
--- OUTSIDE RECORDS SUMMARY | 2018-06-07 11:49 | XMS REPORT ---
Author Author ELISEO BENDER Organization [employer] Address Unknown Phone Unavailable Care Team Providers Care School Operations Manager Name Role Phone ELISEO BENDER CP [...] End Date Status Dosage Potassium Chloride [facility] [address]-24 40 Orally Once a day 1 tablet Results No Known Results Summary Purpose [employer] Submission
--- OUTSIDE RECORDS SUMMARY | 2018-06-07 11:49 | XMS REPORT ---
Author Author ELISEO BENDER Organization [employer] Address Unknown Phone Unavailable Care Team Providers Care Candy Separator Hard Name Role Phone ELISEO BENDER CP Unavailable Allergies No Known Allergies Problems Problem Type Condition Code Onset Dates Condition Status Problem Restless legs syndrome [RLS] 333.94 Active Problem Other malaise and fatigue 780.79 Active Problem Edema 782.3 Active Problem Basal cell carcinoma of skin of trunk, except scrotum 173.51 Active Problem Cervicalgia 723.1 Active Problem Special screening examination, human papillomavirus [HPV] V73.81 Active Problem Other chronic allergic conjunctivitis 372.14 Active Problem Neuropathy G62.9 Active Problem Low back pain, unspecified back pain laterality, with sciatica presence unspecified M54.5 Active Problem Memory loss 780.93 Active Problem Chest pain, unspecified 786.50 Active Problem 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 Active Problem Costochondritis 733.6 Active Problem Lump or mass in breast 611.72 Active Problem Unspecified breast screening V76.10 Active Problem Gastro-esophageal reflux disease without esophagitis K21.9 Active Problem Hypertrophy of uterus 621.2 Active Problem Unspecified hereditary and idiopathic peripheral neuropathy 356.9 Active Problem Encounter for long-term (current) use of other medications V58.69 Active Problem Rheumatoid arthritis 714.0 Active Problem Pain in joint, shoulder region 719.41 Active Problem Unspecified backache 724.5 Active Problem Special screening for malignant neoplasms, colon V76.51 Active Problem Dysuria 788.1 Active Problem Unspecified myalgia and myositis 729.1 Active Medications No Known Medications Results No Known Results Summary Purpose [employer] Submission
--- OUTSIDE RECORDS SUMMARY | 2018-06-07 11:49 | XMS REPORT ---
Author Author ELISEO BENDER Organization [employer] Address Unknown Phone Unavailable Care Team Providers Care Traffic Line Painter Name Role Phone ELISEO BENDER CP Unavailable [...]
--- OUTSIDE RECORDS SUMMARY | 2018-06-07 11:49 | XMS REPORT ---
Author Author ELISEO BENDER Organization [employer] Address Unknown Phone Unavailable Care Team Providers Care Waste Salvager Name Role Phone ELISEO BENDER CP Unavailable [...]
--- OUTSIDE RECORDS SUMMARY | 2018-06-07 11:51 | XMS REPORT ---
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 Name Role Phone ELISEO BENDER Unavailable PROBLEMS Type Condition ICD9-CM Code MOE04-UD Code Onset Dates Condition Status SNOMED Code Problem Rheumatoid arthritis, involving unspecified site, unspecified rheumatoid factor presence M06.9 Active 72777019 Problem Anxiety F41.9 Active 59966061 Problem Chest pain, unspecified type R07.9 Active 39025774 Problem BMI 30.0-30.9,adult Z68.30 Active 963249592 Problem BMI 31.0-31.9,adult Z68.31 Active 669207373 Problem Postoperative hypothyroidism E89.0 Active 93845059 Problem Depression, unspecified depression type F32.9 Active 84823671 Problem Other atopic dermatitis L20.89 Active 99617939 Problem Thyroid cancer C73 Active 692629452 Problem Low back pain, unspecified back pain laterality, with sciatica presence unspecified M54.5 Active 342232645 Problem Gastro-esophageal reflux disease without esophagitis K21.9 Active 245291079 Problem Other chronic pain G89.29 Active 00177076 Problem Neuropathy G62.9 Active 163728925 Problem Dysthymia F34.1 Active 08186722 Problem 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 Active 54411402 Problem Insomnia G47.00 Active 134419268 ALLERGIES No Information ENCOUNTERS Encounter Location Date Diagnosis [facility] [address] [facility] [id number] [address] Mar, [facility] [id number] [address] Feb, Low back pain, unspecified back pain laterality, with sciatica presence unspecified M54.5 [facility] [address] [id number] [address] January, BMI 30.0-30.9,adult Z68.30 [place] [id number] [place] [address] 17008- 9521 January, Low back pain, unspecified back pain laterality, with sciatica presence unspecified M54.5 [place] [address] 41050- 0604 January, [place] [address] 28894- 5018 Dec, Low back pain, unspecified back pain laterality, with sciatica presence unspecified M54.5 [place] [address] 66742- 9996 Nov, Low back pain, unspecified back pain laterality, with sciatica presence unspecified M54.5 [place] [address] 83185- 7609 Nov, [place] [address] 10552- 5775 Nov, Low back pain, unspecified back pain laterality, with sciatica presence unspecified M54.5 ; Other chronic pain G89.29 ; Rheumatoid arthritis, involving unspecified site, unspecified rheumatoid factor presence M06.9 and Dysthymia F34.1 [place] [id number] [place] [address] 97524- 8175 Oct, Low back pain, unspecified back pain laterality, with sciatica presence unspecified M54.5 [place] [id number] [place] [address] 36852- 2166 Sep, Low back pain, unspecified back pain laterality, with sciatica presence unspecified M54.5 [facility] [id number] [place] [address] 34674 -6070 Sep, Fever R50.9 and URI, acute J06.9 [place] [address] 89722- 1789 Aug, [facility] [id number] [place] [address] 47637- 4126 Aug, Low back pain, unspecified back pain laterality, with sciatica presence unspecified M54.5 [facility] [id number] [place] [address] 36386- 0486 Jul, Low back pain, unspecified back pain laterality, with sciatica presence unspecified M54.5 [facility] [id number] [place] [address] 93275 -4858 15 Jul, 2017 Nausea R11.0 ; Fever and chills R50.9 ; UTI symptoms R39.9 and Hematuria, unspecified type R31.9 [facility] [id number] [place] [address] 25982- 3725 Jul, [place] [address] 57292- 2463 Jun, Low back pain, unspecified back pain laterality, with sciatica presence unspecified M54.5 [place] [id number] [place] [address] 38388- 5430 Jun, BMI 31.0-31.9,adult Z68.31 [facility] [id number] [place] [address] 48627- 3446 Jun, Neuropathy G62.9 [place] [id number] [place] [address] 41062- 4502 Jun, Low back pain, unspecified back pain laterality, with sciatica presence unspecified M54.5 [place] [id number] [place] [address] 11566- 9630 Jun, Encounter for immunization Z23 [facility] [id number] [place] [address] 00164- 2974 Jun, BMI 31.0-31.9,adult Z68.31 [place] [address] 63077- 2022 Jun, Low back pain, unspecified back pain laterality, with sciatica presence unspecified M54.5 [place] [id number] [place] [address] 39269- 9796 21 May, 2017 Low back pain, unspecified back pain laterality, with sciatica presence unspecified M54.5 ; Other chronic pain G89.29 ; Plantar fasciitis M72.2 ; Rheumatoid arthritis, involving unspecified site, unspecified rheumatoid factor presence M06.9 and History of alcohol abuse Z87.898 [place] [id number] [place] [address] 77174- 9108 08 May, 2017 Anxiety F41.9 and Low back pain, unspecified back pain laterality, with sciatica presence unspecified M54.5 [place] [id number] [place] [address] 05935- 1277 Apr, Anxiety F41.9 and Low back pain, unspecified back pain laterality, with sciatica presence unspecified M54.5 [place] [id number] [place] [address] 74002- 6923 18 Mar, 2017 Acute right-sided low back pain without sciatica M54.5 ; Rash R21 ; Right flank pain R10.9 ; Lipid screening Z13.220 ; Other chronic pain G89.29 ; 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 ; Postoperative hypothyroidism E89.0 and Breast cancer screening Z12.39 [place] [id number] [place] [address] 31670- 9196 14 Mar, 2017 Anxiety F41.9 and Low back pain, unspecified back pain laterality, with sciatica presence unspecified M54.5 [place] [id number] [place] [address] 62829- 2327 13 Mar, 2017 Acute right-sided low back pain without sciatica M54.5 [place] [id number] [place] [address] 25307- 2533 07 Mar, 2017 Anxiety F41.9 [place] [address] 33359- 5944 28 Feb, 2017 Right flank pain R10.9 and Anxiety F41.9 [place] [address] 99141- 5173 16 Feb, 2017 BMI 31.0-31.9,adult Z68.31 [place] [address] 98731- 4242 Feb, Low back pain, unspecified back pain laterality, with sciatica presence unspecified M54.5 and Anxiety F41.9 [facility] [address] 94770 -8416 January, Abscess of toe of right foot L02.611 and Other atopic dermatitis L20.89 [place] [address] 04943- 7729 January, Low back pain, unspecified back pain laterality, with sciatica presence unspecified M54.5 and Anxiety F41.9 [place] [address] 30919- 2127 Dec, Anxiety F41.9 and Low back pain, unspecified back pain laterality, with sciatica presence unspecified M54.5 [facility] [place] [id number] [place] [address] 08365 -2544 Dec, Scabies B86 [place] [address] 07905- 3770 Nov, Rash R21 ; Other chronic pain G89.29 ; 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 ; Postoperative hypothyroidism E89.0 ; Breast cancer screening Z12.39 and Lipid screening Z13.220 [place] [address] 97414- 6566 Nov, Anxiety F41.9 and Low back pain, unspecified back pain laterality, with sciatica presence unspecified M54.5 [place] [address] 79310- 3515 Oct, Anxiety F41.9 and Low back pain, unspecified back pain laterality, with sciatica presence unspecified M54.5 [facility] [id number] [place] [address] 21018- 5617 Sep, Anxiety F41.9 and Low back pain, unspecified back pain laterality, with sciatica presence unspecified M54.5 [facility] [id number] [place] [address] 23806- 1778 Sep, Anxiety F41.9 [facility] [address] 10721- 6202 Sep, Gastro-esophageal reflux disease without esophagitis K21.9 [facility] [address] [id number] Sep, Dental examination Z01.20 [facility] [address] 63788- 6197 Sep, Low back pain, unspecified back pain laterality, with sciatica presence unspecified M54.5 and Postoperative hypothyroidism E89.0 [facility] [id number] [place] [address] 31690- 2471 Aug, Anxiety F41.9 [facility] [address] 35453- 6517 Aug, [facility] [id number] [place] [address] 78052- 7045 Aug, Low back pain, unspecified back pain laterality, with sciatica presence unspecified M54.5 ; Other chronic pain G89.29 ; Thyroid cancer C73 and Postoperative hypothyroidism E89.0 [facility] [id number] [place] [address] 03888- 1623 Jul, [facility] [address] 58478- 4260 Jul, Anxiety F41.9 [facility] [id number] [place] [address] 40938- 6221 Jul, [place] [id number] [place] [address] 83728- 6694 Jul, BMI 29.0-29.9,adult Z68.29 [place] [id number] [place] [address] 09356- 4145 Jul, [place] [address] 14227- 3910 Jul, BMI 30.0-30.9,adult Z68.30 [place] [address] 84318- 5813 Jul, Low back pain, unspecified back pain laterality, with sciatica presence unspecified M54.5 and Anxiety F41.9 [place] [id number] [place] [address] 81144- 8338 Jun, 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 [place] [address] 19402- 2832 Jun, BMI 30.0-30.9,adult Z68.30 [place] [address] 39286- 1112 Jun, [place] [address] 24507- 7078 Jun, 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 ; Dysthymia F34.1 ; Encounter for immunization Z23 and Other chronic pain G89.29 [place] [address] 76481- 6321 Jun, Low back pain, unspecified back pain laterality, with sciatica presence unspecified M54.5 [place] [address] 99638- 6808 Jun, BMI 30.0-30.9,adult Z68.30 [place] [id number] [place] [address] 99605- 4628 Jun, Anxiety F41.9 [place] [address] 20556- 2935 May, 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 [place] [address] 31352- 9190 May, Constipation, unspecified constipation type K59.00 [place] [address] 76278- 6610 May, Low back pain, unspecified back pain laterality, with sciatica presence unspecified M54.5 [place] [address] 94917- 1526 May, [place] [address] 678976- 5381 May, Constipation, unspecified constipation type K59.00 [place] [address] 17400- 8944 May, Anxiety F41.9 [place] [address] 33440- 4241 Apr, BMI 31.0-31.9,adult Z68.31 [place] [address] 46299- 2337 Apr, Thyroid goiter E04.9 [place] [address] 92343- 8116 Apr, [place] [address] 54527- 1429 Apr, Low back pain, unspecified back pain laterality, with sciatica presence unspecified M54.5 [place] [address] 12836- 1234 Apr, [place] [address] [place]54994- 5179 Apr, Constipation, unspecified constipation type K59.00 ; Thyroid nodule E04.1 ; Family history of colon cancer Z80.0 and 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 [place] [address] [address]- 7018 Apr, Anxiety F41.9 [facility] [id number] [place] [address] 35554- 8722 Mar, [facility] [id number] [place] [address] 32886- 9176 Mar, Low back pain, unspecified back pain laterality, with sciatica presence unspecified M54.5 [facility] [id number] [place] [address] 41772- 7827 Mar, BMI 32.0-32.9,adult Z68.32 [facility] [id number] [place] [address] 61038- 8676 Feb, Anxiety F41.9 [facility] [id number] [place] [address] 23867- 4673 Feb, Depression, unspecified depression type F32.9 [facility] [id number] [place] [address] 46950- 8330 Feb, BMI 32.0-32.9,adult Z68.32 [facility] [id number] [place] [address] 59406- 5805 Feb, Low back pain, unspecified back pain laterality, with sciatica presence unspecified M54.5 [facility] [id number] [place] [address] 56518- 2247 Feb, [facility] [id number] [place] [address] 62760- 3456 Feb, BMI 32.0-32.9,adult Z68.32 [facility] [id number] [place] [address] 78956- 8904 Feb, Anxiety F41.9 [facility] [address] [place] [address] 64423- 2533 January, BMI 32.0-32.9,adult Z68.32 [place] [id number] [place] [address] 87904- 5801 January, Low back pain, unspecified back pain laterality, with sciatica presence unspecified M54.5 ; Other chronic pain G89.29 ; Weight gain R63.5 and Rheumatoid arthritis, involving unspecified site, unspecified rheumatoid factor presence M06.9 [place] [address] 13209- 0479 January, Low back pain, unspecified back pain laterality, with sciatica presence unspecified M54.5 [place] [address] 64704- 4423 January, BMI 32.0-32.9,adult Z68.32 [place] [address] 19591- 0177 January, BMI 32.0-32.9,adult Z68.32 [place] [address] 44925- 0666 January, BMI 32.0-32.9,adult Z68.32 [place] [address] 87358- 0907 Dec, Insomnia G47.00 and Dysthymia F34.1 [place] [id number] [place] [address] 82771- 7088 Dec, [place] [address] 84650- 2403 Dec, Other chronic pain G89.29 ; Neuropathy G62.9 and Dysthymia F34.1 [place] [address] 55688- 0002 Dec, [place] [id number] [place] [address] 84535- 8448 Nov, [place] [address] 79085- 7186 Nov, [facility] [address] [place] [address] 07174- 3319 Nov, [facility] [id number] [place] [address] 76351- 3476 Oct, [facility] [id number] [place] [address] 45296- 0390 Oct, [facility] [id number] [place] [address] 83642- 7664 Oct, Family history of diabetes mellitus Z83.3 [facility] [id number] [place] [address] 81999- 2599 Oct, [facility] [id number] [place] [address] 96079- 6283 Sep, [facility] [id number] [place] [address] 70419- 7484 Sep, Eye pain, right H57.11 and Other chronic pain G89.29 [facility] [id number] [place] [address] 93550- 4629 Sep, [facility] [id number] [place] [address] 41638- 9832 Sep, [facility] [id number] [place] [address] 88666- 0144 Sep, 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 ; Neuropathy G62.9 ; Low back pain, unspecified back pain laterality, with sciatica presence unspecified M54.5 ; Gastro-esophageal reflux disease without esophagitis K21.9 and Encounter for long-term (current) use of other medications V58.69 [facility] [id number] [place] [address] 01289- 1033 Sep, [facility] [id number] [place] [address] 11351- 4060 Sep, [facility] [id number] [place] [address] 66650- 2924 Sep, [facility] [address] 5523 Sep, [facility] [address] [place] [address] 234683- 6407 Aug, [facility] [address] [place] [address] 472720- 1252 Aug, Family history of diabetes mellitus Z83.3 [facility] [id number] [place] [address] 885419- 4250 Aug, [facility] [id number] [place] [address] 958234- 3824 17 Aug, 2015 [facility] [id number] [place] [address] 78259- 6007 16 Aug, 2015 Family history of diabetes mellitus Z83.3 [facility] [id number] [place] [address] 77635- 3105 14 Aug, 2015 Weight gain R63.5 ; Edema, unspecified R60.9 ; Family history of diabetes mellitus Z83.3 and Gastroesophageal reflux disease with esophagitis K21.0 [facility] [address] [address]- 4832 14 Aug, 2015 [facility] [address], [place] [address]- 2472 Aug, [facility] [address] [address]- 9789 Jul, [facility] [address] [place] [address] 28972- 5677 Jul, [facility] [id number] [place] [address] 121462- 2474 Jul, [facility] [address] 7897 Jun, [facility] [address] [place] [address] 11472- 6980 Jun, Nose pain J34.89 ; Encounter for immunization Z23 ; Screening for breast cancer Z12.39 and Encounter for long-term (current) use of other medications V58.69 [facility] [address] [place] [address] 36765- 5987 Jun, [facility] [id number] [place] [address] 87246- 2617 May, [facility] [id number] [place] [address] 19118- 2621 May, [facility] [id number] [place] [address] 07699- 3504 May, [facility] [id number] [place] [address] 55576- 5820 May, [facility] [id number] [place] [address] 48850- 4520 May, [facility] [id number] [place] [address] 14263- 9138 May, [facility] [id number] [place] [address] 91038- 6324 May, [facility] [id number] [place] [address] 31244- 5182 Apr, [facility] [address] [place] [address] 34243- 7387 Apr, [facility] [id number] [place] [address] 49021- 0598 Apr, [facility] [id number] [place] [address] 58870- 4413 Mar, [facility] [id number] [place] [address] 73772- 4155 Mar, [facility] [address] [address]- 9056 Mar, Lesion of left shoulder 709.9 [facility] [address] [address]- 1039 Mar, [facility] [id number] [place] [address] 61330- 0419 Mar, [facility] [address] [address]- 0627 Mar, [facility] [id number] [place] [address] 35922- 2554 Feb, [facility] [id number] [place] [address] 69871- 6447 Feb, [facility] [id number] [place] [address] 06718- 4084 Feb, Unspecified backache 724.5 ; Weight gain 783.1 ; Hypothyroid 244.9 ; Edema 782.3 and Diaphoresis 780.8 [facility] [address] [address]- 4249 Feb, [facility] [address] [address]- 6135 Feb, [facility] [address] [address]- 9149 Feb, [facility] [address] [address]- 3824 Feb, [facility] [address] [address]- 3223 Feb, [facility] [address] [address]- 6387 January, [facility] [address] [address]- 7616 January, [facility] [id number] [address]- 3613 Dec, [facility] [address] [address]- 6572 13 Dec, 2014 [facility] [place] [facility] [address] [id number] [place] [address]- 0573 16 Nov, 2014 [facility] [place] [facility] [address] [id number] [place] [address]- 4606 16 Nov, 2014 [facility] [place] [facility] [address] [id number] [place] [address]- 7438 16 Nov, 2014 [facility] [place] [facility] [address] [id number] [place] [address]- 9850 16 Nov, 2014 [facility] [place] [facility] [address] [id number] [place] [address]- 5952 16 Nov, 2014 [facility] [place] [facility] [address] [id number] [place] [address]- 0208 16 Nov, 2014 [facility] [place] [facility] [address] [id number] [place] [address]- 4243 Nov, [facility] [place] [facility] [address] [id number] [place] [address]- 3542 12 Nov, 2014 [facility] [place] [facility] [address] [id number] [place] [address]- 0659 Nov, [facility] [place] [facility] [address] [id number] [place] [address]- 2043 Nov, [facility] [place] [facility] [address] [id number] [place] [address]- 2688 05 Nov, 2014 [facility] [place] [facility] [address] [id number] [place] [address] Nov, [facility] [place] [facility] [address] [id number] [place] [address] 04 Nov, 2014 [facility] [place] [facility] [address] [id number] [place] [address] Oct, [facility] [place] [facility] [address] [id number] [place] [address] Oct, [facility] [place] [facility] [address] [id number] [place] [address] Sep, [facility] [place] [facility] [address] [id number] [place] [address] Sep, [facility] [place] [facility] [address] [id number] [place] [address] Aug, [facility] [place] [facility] [address] [id number] [place] [address] Aug, [facility] [place] [facility] [address] [id number] [place] [address] Aug, [facility] [place] [facility] [address] [id number] [place] [address] Aug, [facility] [place] [facility] [address] [id number] [place] [address] Aug, [facility] [place] [facility] [address] [id number] [place] [address] Aug, [facility] [place] [facility] [address] [id number] [place] [address] Aug, [facility] [place] [facility] [address] [id number] [place] [address] Aug, [facility] [place] [facility] [address] [id number] [place] [address] Aug, [facility] [place] [facility] [address] [id number] [place] [address] 8547 Jul, [facility] [place] [facility] [address] [id number] [place] [address] 7242 Jul, [facility] [place] [facility] [address] [id number] [place] [address]- 1183 Jul, [facility] [place] [facility] [address] [id number] [place] [address] 7280 Jul, [facility] [place] [facility] [address] [id number] [place] [address] 9274 Jul, [facility] [place] [facility] [address] [id number] [place] [address] 2113 Jul, [facility] [place] [facility] [address] [id number] [place] [address]- 2768 Jul, [facility] [place] [facility] [address] [id number] [place] [address]- 4139 Jul, [facility] [place] [facility] [address] [id number] [place] [address] 0844 Jul, [facility] [place] [facility] [address] [id number] [place] [address] 0570 Jul, [facility] [place] [facility] [address] [id number] [place] [address] 8630 Jun, [facility] [place] [facility] [address] [id number] [place] [address]- 4734 Jun, [facility] [place] [facility] [address] [id number] [address] 4746 Jun, [facility] [place] [facility] [address] [id number] [place] [address]- 7505 Jun, [facility] [place] [facility] [address] [id number] [place] [address]- 6063 Jun, [facility] [place] [facility] [address] [id number], [place] [address] 0365 Jun, [facility] [place] [facility] [address] [id number], [place] [address] 30 May, 2014 [facility] [place] [facility] [address] [id number] [place] [address]- 5143 30 May, 2014 [facility] [place] [facility] [address] [id number] [place] [address]- 4025 29 May, 2014 [facility] [place] [facility] [address] [id number] [place] [address]- 6648 29 May, 2014 [facility] [place] [facility] [address] [id number] [place] [address]- 1427 24 May, 2013 [facility] [place] [facility] [address] [id number] [place] [address] 2546 24 May, 2013 [facility] [place] [facility] [address] [id number] [place] [address] 2546 May, 2013 [facility] [place] [facility] [address] [id number] [place] [address] 2545 May, 2013 [facility] [place] [facility] [address] [id number] [place] [address] 2548 05 May, 2013 [facility] [place] [facility] [address] [id number] [place] [address]- 8443 05 May, 2013 [facility] [place] [facility] [address] [id number] [place] [address]- 4531 May, 2013 [facility] [place] [facility] [address] [id number] [place] [address]- 9691 May, 2013 [facility] [place] [facility] [address] [id number] [place] [address]- 8410 Apr, [facility] [place] [facility] [address] [id number] [place] [address]- 7660 Apr, [facility] [place] [facility] [address] [id number] [place] [address]- 1215 Apr, [facility] [place] [facility] [address] [id number] [place] [address]- 2543 Apr, [facility] [place] [facility] [address] [id number] [place] [address]- 2548 Apr, [facility] [place] [facility] [address] [id number] [place] [address]- 2541 Apr, [facility] [place] [facility] [address] [id number] [place] [address]- 2547 Apr, [facility] [place] [facility] [address] [id number] [place] [address]- 2543 Apr, [facility] [place] [facility] [address] [id number] [place] [address]- 4635 Apr, 2013 [facility] [place] [facility] [address] [id number] [place] [address]- 3389 Apr, [facility] [place] [facility] [address] [id number] [place] [address]- 1863 Apr, 2013 [facility] [place] [facility] [address] [id number] [place] [address]- 2975 Apr, [facility] [place] [facility] [address] [id number] [place] [address]- 0394 Apr, [facility] [place] [facility] [address] [id number] [place] [address]- 3539 Apr, [facility] [place] [facility] [address] [id number] [place] [address]- 5866 Apr, [facility] [place] [facility] [address] [id number] [place] [address]- 2789 Apr, [facility] [place] [facility] [address] [id number] [place] [address]- 1395 Apr, [facility] [place] [facility] [address] [id number] [place] [address]- 2323 Apr, [facility] [place] [facility] [address] [id number] [place] [address]- 9794 Apr, [facility] [place] [facility] [address] [id number] [place] [address]- 5737 Apr, [facility] [place] [facility] [address] [id number] [place] [address]- 2279 Apr, [facility] [place] [facility] [address] [id number] [place] [address]- 2048 Apr, [facility] [place] [facility] [address] [id number] [place] [address]- 9645 Apr, [facility] [place] [facility] [address] [id number] [place] [address]- 0338 Mar, [facility] [place] [facility] [address] [id number] [place] [address]- 4680 Mar, [facility] [place] [facility] [address] [id number] [place] [address]- 8085 Mar, [facility] [place] [facility] [address] [id number] [place] [address]- 8630 Mar, [facility] [place] [facility] [address] [id number] [place] [address]- 4765 Mar, [facility] [place] [facility] [address] [id number] [place] [address]- 0843 Mar, [facility] [place] [facility] [address] [id number] [place] [address]- 4332 Mar, [facility] [place] [facility] [address] [id number] [place] [address]- 6122 Mar, [facility] [place] [facility] [address] [id number] [place] [address]- 8315 Mar, [facility] [place] [facility] [address] [id number] [place] [address]- 1156 Mar, [facility] [place] [facility] [address] [id number] [place] [address]- 3533 Mar, [facility] [place] [facility] [address] [id number] [place] [address]- 3487 Mar, [facility] [place] [facility] [address] [id number] [place] [address]- 1541 Mar, [facility] [place] [facility] [address] [id number] [place] [address]- 9087 Mar, [facility] [place] [facility] [address] [id number] [place] [address]- 3938 Feb, [facility] [place] [facility] [address] [id number] [place] [address]- 8511 Feb, [facility] [place] [facility] [address] [id number] [place] [address]- 8779 11 Feb, 2014 [facility] [place] [facility] [address] [id number] [place] [address]- 9917 Feb, [facility] [place] [facility] [address] [id number] [place] [address]- 0148 Feb, [facility] [place] [facility] [address] [id number] [place] [address]- 0646 Feb, [facility] [place] [facility] [address] [id number] [place] [address]- 4548 Feb, [facility] [place] [facility] [address] [id number] [place] [address]- 7183 Feb, [facility] [place] [facility] [address] [id number] [place] [address]- 1833 Dec, [facility] [place] [facility] [address] [id number] [place] [address]- 2758 Dec, [facility] [place] [facility] [address] [id number] [place] [address]- 3314 Dec, [facility] [place] [facility] [address] [id number] [place] [address]- 3094 Dec, [facility]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
--- OUTSIDE RECORDS SUMMARY | 2018-06-07 11:51 | XMS REPORT ---
Author Author ELISEO BENDER [facility] Address [address] [place] [address] Care Team Providers Care Perioperative Educator Name Role Phone ELISEO BENDER Unavailable PROBLEMS Type Condition ICD9-CM Code [id number] Code Onset Dates Condition Status SNOMED Code Problem Insomnia G47.00 Active 669528232 Problem Chest pain, unspecified type R07.9 Active 09319752 Problem Rheumatoid arthritis, involving unspecified site, unspecified rheumatoid factor presence M06.9 Active 83955149 Problem BMI 31.0-31.9,adult Z68.31 Active 469149809 Problem Other atopic dermatitis L20.89 Active 18386584 Problem Depression, unspecified depression type F32.9 Active 87869754 Problem Anxiety F41.9 Active 04729979 Problem Thyroid cancer C73 Active 014927233 Problem Postoperative hypothyroidism E89.0 Active 07276906 Problem 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 Active 52033961 Problem Gastro-esophageal reflux disease without esophagitis K21.9 Active 424741468 Problem Low back pain, unspecified back pain laterality, with sciatica presence unspecified M54.5 Active 656630874 Problem Other chronic pain G89.29 Active 00886265 Problem Neuropathy G62.9 Active 025027527 Problem Dysthymia F34.1 Active 33125799 ALLERGIES Substance Reaction Event Type Date Status Penicillin V Potassium anaphylaxis Drug Allergy May, Active Klonopin Makes her cry all the time Drug Allergy May, Active ENCOUNTERS Encounter Location Date Diagnosis [facility] [address] [facility] [id number] [address] January, [facility] [address] [id number] [address] Dec, Low back pain, unspecified back pain laterality, with sciatica presence unspecified M54.5 [facility] [id number] [place] [address] 96033- 2455 Nov, Low back pain, unspecified back pain laterality, with sciatica presence unspecified M54.5 [place] [address] 8[address]10- 7557 Nov, [place] [address] 57394- 4188 Nov, Low back pain, unspecified back pain laterality, with sciatica presence unspecified M54.5 ; Other chronic pain G89.29 ; Rheumatoid arthritis, involving unspecified site, unspecified rheumatoid factor presence M06.9 and Dysthymia F34.1 [place] [address] [address]19- 9730 Oct, Low back pain, unspecified back pain laterality, with sciatica presence unspecified M54.5 [place] [address] 70045- 6305 Sep, Low back pain, unspecified back pain laterality, with sciatica presence unspecified M54.5 [facility] [address] [address] Sep, Fever R50.9 and URI, acute J06.9 [place] [address] 35272- 7355 Aug, [place] [address] 68014- 5956 Aug, Low back pain, unspecified back pain laterality, with sciatica presence unspecified M54.5 [place] [id number] [place] [address] 20968- 2878 Jul, Low back pain, unspecified back pain laterality, with sciatica presence unspecified M54.5 [facility] [address] 6[address] -[address] 15 Jul, 2017 Nausea R11.0 ; Fever and chills R50.9 ; UTI symptoms R39.9 and Hematuria, unspecified type R31.9 [place] [id number] [place] [address] 85194- 1060 Jul, [place] [id number] [place] [address] 46263- 8565 Jun, Low back pain, unspecified back pain laterality, with sciatica presence unspecified M54.5 [place] [address] 06858- 6558 Jun, BMI 31.0-31.9,adult Z68.31 [place] [id number] [place] [address] 82370- 7361 Jun, Neuropathy G62.9 [place] [address] 37815- 7941 Jun, Low back pain, unspecified back pain laterality, with sciatica presence unspecified M54.5 [place] [address] 31708- 1172 Jun, Encounter for immunization Z23 [place] [address] 64279- 1037 Jun, BMI 31.0-31.9,adult Z68.31 [place] [id number] [place] [address] 97894- 2801 Jun, Low back pain, unspecified back pain laterality, with sciatica presence unspecified M54.5 [place] [id number] [place] [address] 08182- 2606 May, Low back pain, unspecified back pain laterality, with sciatica presence unspecified M54.5 ; Other chronic pain G89.29 ; Plantar fasciitis M72.2 ; Rheumatoid arthritis, involving unspecified site, unspecified rheumatoid factor presence M06.9 and History of alcohol abuse Z87.898 [place] [id number] [place] [address] 08771- 5687 May, Anxiety F41.9 and Low back pain, unspecified back pain laterality, with sciatica presence unspecified M54.5 [place] [address] 57458- 2365 Apr, Anxiety F41.9 and Low back pain, unspecified back pain laterality, with sciatica presence unspecified M54.5 [place] [address] 88883- 4205 Mar, Acute right-sided low back pain without sciatica M54.5 ; Rash R21 ; Right flank pain R10.9 ; Lipid screening Z13.220 ; Other chronic pain G89.29 ; 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 ; Postoperative hypothyroidism E89.0 and Breast cancer screening Z12.39 [place] [address] 95726- 0048 14 Mar, 2017 Anxiety F41.9 and Low back pain, unspecified back pain laterality, with sciatica presence unspecified M54.5 [place] [address] 58848- 8205 13 Mar, 2017 Acute right-sided low back pain without sciatica M54.5 [place] [address] 27488- 6821 Mar, Anxiety F41.9 [place] [address] 15767- 4829 28 Feb, 2017 Right flank pain R10.9 and Anxiety F41.9 [place] [address] 03744- 4820 Feb, BMI 31.0-31.9,adult Z68.31 [place] [address] 81385- 4897 Feb, Low back pain, unspecified back pain laterality, with sciatica presence unspecified M54.5 and Anxiety F41.9 [facility] [id number] [place] [address] 55170 -4727 January, Abscess of toe of right foot L02.611 and Other atopic dermatitis L20.89 [facility] [id number] [place] [address] 187350- 8718 January, Low back pain, unspecified back pain laterality, with sciatica presence unspecified M54.5 and Anxiety F41.9 [facility] [id number] [place] [address] Dec, Anxiety F41.9 and Low back pain, unspecified back pain laterality, with sciatica presence unspecified M54.5 [facility] [address] 047164 -8985 Dec, Scabies B86 [place] [address] 188 Nov, Rash R21 ; Other chronic pain G89.29 ; 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 ; Postoperative hypothyroidism E89.0 ; Breast cancer screening Z12.39 and Lipid screening Z13.220 [place] [address] [place] 856850- 4123 Nov, Anxiety F41.9 and Low back pain, unspecified back pain laterality, with sciatica presence unspecified M54.5 [facility] [id number] [place] [address] Oct, Anxiety F41.9 and Low back pain, unspecified back pain laterality, with sciatica presence unspecified M54.5 [place] [id number] [place] [address] 17903- 3209 Sep, Anxiety F41.9 and Low back pain, unspecified back pain laterality, with sciatica presence unspecified M54.5 [place] [id number] [place] [address] Sep, Anxiety F41.9 [facility] [id number] [place] [address] 51745- 7672 Sep, Gastro-esophageal reflux disease without esophagitis K21.9 [facility] [address] [id number] [address] 09 Sep, 2016 Dental examination Z01.20 [place] [id number] [place] [address] 45738- 1200 Sep, Low back pain, unspecified back pain laterality, with sciatica presence unspecified M54.5 and Postoperative hypothyroidism E89.0 [facility] [id number] [place] [address] 88816- 3416 Aug, Anxiety F41.9 [facility] [id number] [place] [address] 08233- 7023 Aug, [place] [id number] [place] [address] 52683- 6627 Aug, Low back pain, unspecified back pain laterality, with sciatica presence unspecified M54.5 ; Other chronic pain G89.29 ; Thyroid cancer C73 and Postoperative hypothyroidism E89.0 [place] [id number] [place] [address] 37558- 3673 Jul, [place] [id number] [place] [address] 83032- 9717 Jul, Anxiety F41.9 [facility] [id number] [place] [address] 26127- 0654 Jul, [facility] [id number] [place] [address] 63229- 3184 Jul, BMI 29.0-29.9,adult Z68.29 [facility] [id number] [place] [address] 47502- 2023 17 Jul, 2016 [place] [address] 10194- 3928 08 Jul, 2016 BMI 30.0-30.9,adult Z68.30 [facility] [id number] [place] [address] 48529- 0853 Jul, Low back pain, unspecified back pain laterality, with sciatica presence unspecified M54.5 and Anxiety F41.9 [place] [address] 20320- 2141 Jun, 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 [place] [address] 12655- 8281 Jun, BMI 30.0-30.9,adult Z68.30 [place] [address] 897202- 4375 Jun, [place] [address] 63415 8169 Jun, 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 ; Dysthymia F34.1 ; Encounter for immunization Z23 and Other chronic pain G89.29 [place] [address] 06689- 7035 Jun, Low back pain, unspecified back pain laterality, with sciatica presence unspecified M54.5 [place] [address] 43206- 6648 Jun, BMI 30.0-30.9,adult Z68.30 [place] [address] 00185- 8124 Jun, Anxiety F41.9 [place] [address] 84616- 1412 May, 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 [place] [address] 75790- 9594 May, Constipation, unspecified constipation type K59.00 [place] [address] 91310- 3398 May, Low back pain, unspecified back pain laterality, with sciatica presence unspecified M54.5 [place] [address] 98289- 0194 May, [place] [address] 40962- 8535 May, Constipation, unspecified constipation type K59.00 [place] [id number] [place] [address] 38781- 7357 May, Anxiety F41.9 [place] [id number] [place] [address] 38641- 7938 Apr, BMI 31.0-31.9,adult Z68.31 [place] [address] 24797- 1635 17 Apr, 2016 Thyroid goiter E04.9 [place] [id number] [place] [address] 49407- 6164 Apr, [place] [id number] [place] [address] 28654- 9407 Apr, Low back pain, unspecified back pain laterality, with sciatica presence unspecified M54.5 [place] [id number] [place] [address] 40430- 6712 Apr, [place] [id number] [place] [address] 20244- 0076 Apr, Constipation, unspecified constipation type K59.00 ; Thyroid nodule E04.1 ; Family history of colon cancer Z80.0 and Hyperinsulinemia E16.1 [place] [id number] [place] [address] 21631- 0949 Apr, Anxiety F41.9 [place] [id number] [place] [address] 30098- 4900 Mar, [place] [id number] [place] [address] 38514- 7130 Mar, Low back pain, unspecified back pain laterality, with sciatica presence unspecified M54.5 [place] [id number] [place] [address] 21230- 1777 Mar, BMI 32.0-32.9,adult Z68.32 [place] [address] [place] [place] [address] 60374- 8302 Feb, Anxiety F41.9 [place] [id number] [place] [address] 91102- 6887 Feb, Depression, unspecified depression type F32.9 [place] [id number] [place] [address] 82411- 2888 Feb, BMI 32.0-32.9,adult Z68.32 [place] [id number] [place] [address] 30354- 5040 Feb, Low back pain, unspecified back pain laterality, with sciatica presence unspecified M54.5 [place] [id number] [place] [address] 31016- 3353 Feb, [place] [id number] [place] [address] 58697- 4814 Feb, BMI 32.0-32.9,adult Z68.32 [place] [id number] [place] [address] 34646- 9906 Feb, Anxiety F41.9 [place] [id number] [place] [address] 67862- 8271 January, BMI 32.0-32.9,adult Z68.32 [place] [id number] [place] [address] 15791- 9227 January, Low back pain, unspecified back pain laterality, with sciatica presence unspecified M54.5 ; Other chronic pain G89.29 ; Weight gain R63.5 and Rheumatoid arthritis, involving unspecified site, unspecified rheumatoid factor presence M06.9 [place] [id number] [place] [address] 75983- 2262 January, Low back pain, unspecified back pain laterality, with sciatica presence unspecified M54.5 [place] [id number] [place] [address] 10873- 9869 January, BMI 32.0-32.9,adult Z68.32 [facility] [id number] [place] [address] 59877- 6068 January, BMI 32.0-32.9,adult Z68.32 [facility] [id number] [place] [address] 74240- 7005 January, BMI 32.0-32.9,adult Z68.32 [facility] [address] 89716- 7233 Dec, Insomnia G47.00 and Dysthymia F34.1 [facility] [address] 53292- 1838 Dec, [facility] [id number] [place] [address] 26161- 8230 Dec, Other chronic pain G89.29 ; Neuropathy G62.9 and Dysthymia F34.1 [facility] [id number] [place] [address] 78564- 8153 Dec, [facility] [id number] [place] [address] 83327- 7639 Nov, [facility] [id number] [place] [address] 26174- 5491 Nov, [facility] [id number] [place] [address] 87661- 9807 Nov, [facility] [id number] [place] [address] 59211- 3001 Oct, [facility] [id number] [place] [address] 26966- 8713 Oct, [facility] [id number] [place] [address] 08655- 9465 Oct, Family history of diabetes mellitus Z83.3 [facility] [id number] [place] [address] 07168- 7604 Oct, [facility] [id number] [place] [address] 86473- 4856 Sep, [facility] [address] 09488- 4967 Sep, Eye pain, right H57.11 and Other chronic pain G89.29 [facility] [address] 15199- 4258 Sep, [facility] [id number] [place] [address] 13507- 4185 Sep, [facility] [id number] [place] [address] 44277- 3298 Sep, Hyperinsulinemia E16.1 ; Neuropathy G62.9 ; Low back pain, unspecified back pain laterality, with sciatica presence unspecified M54.5 ; Gastro-esophageal reflux disease without esophagitis K21.9 and Encounter for long-term (current) use of other medications V58.69 [place] [id number] [place] [address] 11516- 1889 Sep, [place] [id number] [place] [address] 53962- 2089 Sep, [place] [id number] [place] [address] 25084- 9521 Sep, [place] [id number] [place] [address] 49389- 8751 Sep, [facility] [id number] [place] [address] 22176- 0157 Aug, [place] [id number] [place] [address] 96122- 3677 Aug, Family history of diabetes mellitus Z83.3 [facility] [id number] [place] [address] 31508- 6287 Aug, [facility] [id number] [place] [address] 37984- 9828 Aug, [facility] [address] [address]- 5289 16 Aug, 2015 Family history of diabetes mellitus Z83.3 [facility] [address] [place] [address] 14389- 2258 14 Aug, 2015 Weight gain R63.5 ; Edema, unspecified R60.9 ; Family history of diabetes mellitus Z83.3 and Gastroesophageal reflux disease with esophagitis K21.0 [facility] [id number] [place] [address] 03276- 6624 14 Aug, 2015 [facility] [id number] [place] [address] 65496- 2854 Aug, [facility] [id number] [place] [address] 79328- 0429 Jul, [facility] [id number] [place] [address] 14117- 1666 Jul, [facility] [address] [place] [address] 10562- 1414 Jul, [facility] [id number] [place] [address] 43961- 7265 Jun, [facility] [address] [place] [address] 66339- 2305 Jun, Nose pain J34.89 ; Encounter for immunization Z23 ; Screening for breast cancer Z12.39 and Encounter for long-term (current) use of other medications V58.69 [facility] [address] [address]- 7148 Jun, [facility] [id number] [place] [address] 379231- 4307 May, [facility] [id number] [place] [address] 81005- 6775 18 May, 2015 [facility] [address] [place] [address] 91232- 2722 17 May, 2015 [facility] [address] [id number] [place] [address]- 6139 May, 2014 [facility] [place] [facility] [address] [id number] [place] [address]- 2120 May, [facility] [place] [facility] [address] [id number] [place] [address]- 0077 May, [facility] [place] [facility] [address] [id number] [place] [address]- 0898 May, [facility] [place] [facility] [address] [id number] [place] [address]- 8806 Apr, [facility] [place] [facility] [address] [id number] [place] [address]- 3184 Apr, [facility] [place] [facility] [address] [facility] [id number] [place] [address]- 5532 Apr, [facility] [place] [facility] [address] [id number] [place] [address]- 3603 Mar, [facility] [place] [facility] [address] [id number] [place] [address]- 1088 Mar, [facility] [place] [facility] [address] [facility] [id number] [place] [address]- 8027 Mar, Lesion of left shoulder 709.9 [facility] [place] [facility] [address] [facility] [id number] [place] [address]- 9078 Mar, [facility] [place] [facility] [address] [id number] [place] [address]- 9093 Mar, [facility] [place] [facility] [address] [id number] [place] [address]- 4961 Mar, [facility] [place] [facility] [address] [facility] [id number] [place] [address]- 2850 Feb, [facility] [place] [facility] [address] [facility] [id number] [place] [address]- 4601 Feb, [facility] [place] [facility] [address] [address]- 7492 25 Feb, 2015 Unspecified backache 724.5 ; Weight gain 783.1 ; Hypothyroid 244.9 ; Edema 782.3 and Diaphoresis 780.8 [facility] [address] [place] [address]- 8153 18 Feb, 2015 [facility] [id number] [address]- 6492 Feb, [facility] [id number] [place] [address]- 3559 Feb, [facility] [id number] [place] [address], [place] [address]- 1960 Feb, [facility] [address] [place] [address]- 1870 Feb, [facility] [id number] [place] [address] 37280- 9405 January, [facility] [address] [address]- 7525 January, [facility] [id number] [place] [address]- 1502 14 Dec, 2014 [facility] [address] [address]- 0778 13 Dec, 2014 [facility] [address] [address]- 3254 16 Nov, 2014 [facility] [address] [address]- 3026 16 Nov, 2014 [facility] [id number] [address]- 9587 16 Nov, 2014 [facility] [address] [address]- 9546 16 Nov, 2014 [facility] [address]- 3270 16 Nov, 2014 [facility] [place] [facility] [address] [id number] [place] [address]- 8821 16 Nov, 2014 [facility] [place] [facility] [address] [id number] [place] [address]- 6477 Nov, [facility] [place] [facility] [address] [id number] [place] [address]- 2341 Nov, [facility] [place] [facility] [address] [id number] [place] [address]- 6227 Nov, [facility] [place] [facility] [address] [id number] [place] [address]- 1542 Nov, [facility] [place] [facility] [address] [id number] [place] [address]- 4930 Nov, [facility] [place] [facility] [address] [id number] [place] [address]- 1054 Nov, [facility] [place] [facility] [address] [id number] [place] [address]- 8528 Nov, [facility] [place] [facility] [address] [id number] [place] [address]- 3368 Oct, [facility] [place] [facility] [address] [id number] [place] [address]- 3053 Oct, [facility] [place] [facility] [address] [id number] [place] [address] Sep, [facility] [place] [facility] [address] [id number] [place] [address] Sep, [facility] [place] [facility] [address] [id number] [place] [address] Aug, [facility] [place] [facility] [address] [id number] [place] [address] Aug, [facility] [place] [facility] [address] [id number] [place] [address] Aug, [facility] [place] [facility] [address] [id number] [place] [address] 20 Aug, 2014 [facility] [place] [facility] [address] [id number] [place] [address] 17 Aug, 2014 [facility] [place] [facility] [address] [id number] [place] [address] 17 Aug, 2014 [facility] [place] [facility] [address] [id number] [place] [address] Aug, [facility] [place] [facility] [address] [id number] [place] [address] Aug, [facility] [place] [facility] [address] [id number] [place] [address] Aug, [facility] [place] [facility] [address] [id number] [place] [address] Jul, [facility] [place] [facility] [address] [id number] [place] [address] Jul, [facility] [place] [facility] [address] [id number] [place] [address] Jul, [facility] [place] [facility] [address] [id number] [place] [address] Jul, [facility] [place] [facility] [address] [facility] [id number] [place] [address] Jul, [facility] [place] [facility] [address] [id number] [place] [address] Jul, [facility] [place] [facility] [address] [id number] [place] [address] Jul, [facility] [place] [facility] [address] [id number] [place] [address] Jul, [facility] [place] [facility] [address] [id number] [place] [address] 0634 Jul, [facility] [place] [facility] [address] [id number] [place] [address] 0447 Jul, [facility] [place] [facility] [address] [id number] [place] [address] 0[address] Jun, [facility] [place] [facility] [address] [id number] [place] [address] 5488 Jun, [facility] [place] [facility] [address] [id number] [place] [address] 3597 Jun, [facility] [place] [facility] [address] [id number] [place] [address] 7[address] Jun, [facility] [place] [facility] [address] [id number] [place] [address] 6[address] Jun, [facility] [place] [facility] [address] [id number] [place] [address] 8543 Jun, [facility] [place] [facility] [address] [id number] [place] [address]- 8374 30 May, 2013 [facility] [place] [facility] [address] [id number] [place] [address]- 7625 30 May, 2013 [facility] [place] [facility] [address] [id number] [place] [address] 4158 29 May, 2013 [facility] [place] [facility] [address] [id number] [place] [address]- 1710 29 May, 2013 [facility] [place] [facility] [address] [id number] [place] [address]- 2540 24 May, 2013 [facility] [place] [facility] [address] [id number] [place] [address]- 2549 24 Sep, 2013 [facility] [place] [facility] [address] [id number] [place] [address] 2542 22 May, 2013 [facility] [place] [facility] [address] [id number] [place] [address]- 254 22 May, 2013 [facility] [place] [facility] [address] [id number] [place] [address]- 2547 05 Sep, 2013 [facility] [place] [facility] [address] [id number] [place] [address] 1983 May, [facility] [place] [facility] [address] [id number] [place] [address]- 2597 May, [facility] [place] [facility] [address] [id number] [place] [address]- 5061 May, [facility] [place] [facility] [address] [id number] [place] [address]- 8338 Apr, [facility] [place] [facility] [address] [id number] [place] [address]- 3097 Apr, [facility] [place] [facility] [address] [id number] [place] [address]- 6350 Apr, [facility] [place] [facility] [address] [id number] [place] [address] 1922 Apr, [facility] [place] [facility] [address] [id number] [place] [address]- 0664 Apr, [facility] [place] [facility] [address] [id number] [place] [address]- 7866 Apr, [facility] [place] [facility] [address] [id number] [place] [address]- 8639 Apr, [facility] [place] [facility] [address] [id number] [place] [address]- 4237 Apr, [facility] [place] [facility] [address] [id number] [place] [address]- 4230 Apr, [facility] [place] [facility] [address] [id number] [place] [address]- 9651 Apr, [facility] [place] [facility] [address] [id number] [place] [address]- 9255 Apr, [facility] [place] [facility] [address] [id number] [place] [address]- 0528 Apr, [facility] [place] [facility] [address] [id number] [place] [address]- 7730 Apr, [facility] [place] [facility] [address] [id number] [place] [address]- 6062 Apr, [facility] [place] [facility] [address] [id number] [place] [address]- 9289 Apr, [facility] [place] [facility] [address] [id number] [place] [address]- 1212 Apr, [facility] [place] [facility] [address] [id number] [place] [address]- 9756 Apr, [facility] [place] [facility] [address] [id number] [place] [address]- 1054 Apr, [facility] [place] [facility] [address] [id number] [place] [address]- 3348 Apr, [facility] [place] [facility] [address] [id number] [place] [address]- 3519 Apr, [facility] [place] [facility] [address] [id number] [place] [address]- 2162 Apr, [facility] [place] [facility] [address] [id number] [place] [address]- 4090 Apr, [facility] [place] [facility] [address] [id number] [place] [address]- 7790 Apr, [facility] [place] [facility] [address] [id number] [place] [address]- 7128 Mar, [facility] [place] [facility] [address] [id number] [place] [address]- 1515 Mar, [facility] [place] [facility] [address] [id number] [place] [address]- 3131 Mar, [facility] [place] [facility] [address] [id number] [place] [address]- 7554 Mar, [facility] [place] [facility] [address] [id number] [place] [address]- 2856 Mar, [facility] [place] [facility] [address] [id number] [place] [address]- 4590 Mar, [facility] [place] [facility] [address] [id number] [place] [address]- 8357 Mar, [facility] [place] [facility] [address] [id number] [place] [address]- 0114 Mar, [facility] [place] [facility] [address] [id number] [place] [address]- 9035 Mar, [facility] [place] [facility] [address] [id number] [place] [address]- 9757 Mar, [facility] [place] [facility] [address] [id number] [place] [address]- 0253 Mar, [facility] [place] [facility] [address] [id number] [place] [address]- 8832 Mar, [facility] [place] [facility] [address] [id number] [place] [address]- 3502 Mar, [facility] [place] [facility] [address] [id number] [place] [address]- 0878 Mar, [facility] [place] [facility] [address] [id number] [place] [address]- 2618 Feb, [facility] [place] [facility] [address] [id number] [place] [address]- 4245 Feb, [facility] [place] [facility] [address] [id number] [place] [address]- 2823 Feb, [facility] [place] [facility] [address] [id number] [place] [address]- 1544 Feb, [facility] [place] [facility] [address] [id number] [place] [address]- 8790 Feb, [facility] [place] [facility] [address] [id number] [place] [address]- 7532 Feb, [facility] [place] [facility] [address] [id number] [place] [address] Feb, [facility] [place] [facility] [address] [id number] [address]- 9865 Feb, [facility] [place] [facility] [address] [id number] [place] [address]- 1103 Dec, [facility] [place] [facility] [address]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
--- OUTSIDE RECORDS SUMMARY | 2018-06-07 11:52 | XMS REPORT ---
Author Author ELISEO BENDER Organization [employer] Address Unknown Phone Unavailable Care Team Providers Care Gum Dipper Name Role Phone ELISEO BENDER CP Unavailable Allergies No Known Allergies Problems Problem Type Condition Code Onset Dates Condition Status Problem Rheumatoid arthritis 714.0 Active Problem Unspecified backache 724.5 Active Problem Unspecified hereditary and idiopathic peripheral neuropathy 356.9 Active Problem Dysthymia F34.1 Active Problem Other chronic pain G89.29 Active Problem Insomnia G47.00 Active Problem Low back pain, unspecified back pain laterality, with sciatica presence unspecified M54.5 Active Problem Gastro-esophageal reflux disease without esophagitis K21.9 Active Problem Hyperinsulinemia E16.1 Active Problem Neuropathy G62.9 Active Assessment Dysthymia F34.1 Active Assessment Insomnia G47.00 Active Problem Other malaise and fatigue 780.79 Active Medications Medication Code System Code Instructions Start Date End Date Status Dosage Trazodone HCl [facility] [address]-75 100 MG Orally Once a day January 07, 2016 1 tablet at bedtime Alprazolam [facility] [address]-77 0.25 MG Orally 2 times a day 1 tablet Results No Known Results Summary Purpose [employer] Submission
--- OUTSIDE RECORDS SUMMARY | 2018-06-07 11:52 | XMS REPORT ---
Author Author ELISEO BENDER Organization [employer] Address Unknown Phone Unavailable Care Team Providers Care Assembly Inspector Name Role Phone ELISEO BENDER CP Unavailable [...]
--- OUTSIDE RECORDS SUMMARY | 2018-06-07 11:52 | XMS REPORT ---
Author Author ELISEO BENDER [facility] Address [address] [place] [address] Care Team Providers Care Manager Estate Name Role Phone ELISEO BENDER Unavailable PROBLEMS Type Condition ICD9-CM Code [id number] Code Onset Dates Condition Status SNOMED Code Problem Neuropathy G62.9 Active 021592677 Problem Other chronic pain G89.29 Active 11216477 Problem Hyperinsulinemia E16.1 Active 01591320 Problem Depression, unspecified depression type F32.9 Active 84594756 Problem Anxiety F41.9 Active 46882246 Problem Insomnia G47.00 Active 708444236 Problem Dysthymia F34.1 Active 44923804 Problem Chest pain, unspecified type R07.9 Active 80326914 Problem Rheumatoid arthritis, involving unspecified site, unspecified rheumatoid factor presence M06.9 Active 02875276 Problem Unspecified hereditary and idiopathic peripheral neuropathy 356.9 Active 074610229 Problem Unspecified backache 724.5 Active 940549924 Problem Other malaise and fatigue 780.79 Active 662225718 Problem Gastro-esophageal reflux disease without esophagitis K21.9 Active 684394646 Problem Rheumatoid arthritis 714.0 Active 60695561 Problem Low back pain, unspecified back pain laterality, with sciatica presence unspecified M54.5 Active 635402370 ALLERGIES Unknown Allergies SOCIAL HISTORY No smoking Hx information available PLAN OF CARE VITAL SIGNS MEDICATIONS Medication Instructions Dosage Frequency Start Date End Date Duration Status MetFORMIN HCl ER 500 MG Orally 2 times a day 1 tablet with evening meal 12h 21 Aug, 2015 Active RESULTS No Results PROCEDURES No Known procedures IMMUNIZATIONS No Known Immunizations
--- OUTSIDE RECORDS SUMMARY | 2018-06-07 11:52 | XMS REPORT ---
Author Author ELISEO BENDER [facility] [employer] Address Unknown Phone Unavailable Care Team Providers Care Community Education Coordinator Name Role Phone ELISEO BENDER CP Unavailable [...] laterality, with sciatica presence unspecified M54.5 Active Assessment Dysthymia F34.1 Active Assessment Neuropathy G62.9 Active Assessment Other chronic pain G89.29 Active Medications Medication Code System Code Instructions Start Date End Date Status Dosage Lisinopril [facility] [address]-12 20 MG Orally Once a day 1 tablet Omeprazole [facility] [address]-93 20 MG Orally Once a day Aug 20, 2015 1 capsules Calcium [facility] [address]12 600 MG Orally Twice a day 1 tablet with meals Celexa [facility] [address]-22 20 mg Jul 21, 2014 1 tablet by Oral route 1 time per day Ibuprofen [facility] [address]-07 800 MG Orally 2 times a day December 18, 2015 1 tablet Gelatin [facility] [address]-60 650 MG Orally twice a day 2 capsules Bumetanide [facility] 76836552293 2 MG Orally Once a day 1 tablet Alprazolam [facility] [address]-16 0.25 MG Orally 2 times a day 1 tablet Neurontin [facility] [address]-29 300 MG Orally in AM and noon and 2 at hs 1 capsule ibuprofen NDC 0 800 mg Oral 1 tab Tizanidine HCl [facility] [address]-63 4 MG Orally 3 times a day 1 tablet as needed Potassium Chloride Marie ER [facility] [address]-60 20 MEQ Once a day TAKE 2 TABLETS ONE TIME DAILY MetFORMIN HCl ER [facility] [address]-34 500 MG Orally 2 times a day Aug 27, 2015 1 tablet with evening meal Centrum Silver Adult 50+ [facility] [address]-24 Orally once a day one tramadol NDC 0 50 mg orally 3 times a day November 16, 2014 2 Tablets Celexa [facility] [address]-79 40 MG Jul 21, 2014 1 tablet by Oral route 1 time per day Plaquenil [facility] [address]-97 200 MG Orally Twice a day 1 tablet with food or milk Procedures Procedure Coding System Code Date Office Visit, Est Pt., Level 3 CPT-4 83866 December 18, 2015 [facility] VISIT ESTABLISHED PATIENT CPT-4 G0467 December 18, 2015 Vital Signs Date/Time: December 18, 2015 Temperature 98.9 F Weight 219.2 lbs Height 68 in BMI 33.33 Index Blood Pressure Diastolic 65 mmHg Blood Pressure Systolic 100 mmHg Cardiac Monitoring Heart Rate 96 bpm Results No Known Results Summary Purpose [employer] Submission
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
--- OUTSIDE RECORDS SUMMARY | 2018-06-07 11:52 | XMS REPORT ---
Author Author ELISEO BENDER Organization [facility] Address [address] [place] [address] Care Team Providers Care Mechanical Lead Name Role Phone ELISEO BENDER Unavailable PROBLEMS Type Condition ICD9-CM Code GTM90-WL Code Onset Dates Condition Status SNOMED Code Problem Neuropathy G62.9 Active 731695629 Problem Other chronic pain G89.29 Active 34837751 Problem Hyperinsulinemia E16.1 Active 72692719 Problem Depression, unspecified depression type F32.9 Active 25260656 Problem Anxiety F41.9 Active 40641267 Problem Insomnia G47.00 Active 379576855 Problem Dysthymia F34.1 Active 78708441 Problem Chest pain, unspecified type R07.9 Active 06257909 Problem Rheumatoid arthritis, involving unspecified site, unspecified rheumatoid factor presence M06.9 Active 79630366 Assessment Constipation, unspecified constipation type K59.00 May, Active 16123066 Problem Unspecified hereditary and idiopathic peripheral neuropathy 356.9 Active 884006402 Problem Unspecified backache 724.5 Active 189375828 Problem Other malaise and fatigue 780.79 Active 812024093 Problem Gastro-esophageal reflux disease without esophagitis K21.9 Active 424982854 Problem Rheumatoid arthritis 714.0 Active 35466264 Problem Low back pain, unspecified back pain laterality, with sciatica presence unspecified M54.5 Active 831549533 ALLERGIES Unknown Allergies SOCIAL HISTORY No smoking Hx information available PLAN OF CARE VITAL SIGNS MEDICATIONS Medication Instructions Dosage Frequency Start Date End Date Duration Status Amitiza 24 MCG Orally Twice a day 1 capsule with food 12h Apr, 30 days Active Amitiza 8 MCG Orally Twice a day 1 capsule with food 12h Apr, 30 days Active RESULTS No Results PROCEDURES No Known procedures IMMUNIZATIONS No Known Immunizations
--- OUTSIDE RECORDS SUMMARY | 2018-06-07 11:52 | XMS REPORT ---
Author Author ELISEO BENDER [facility] e[employer] Address Unknown Phone Unavailable Care Team Providers Care Salvage Clerk Name Role Phone ELISEO BENDER CP Unavailable [...] presence M06.9 Active Problem Insomnia G47.00 Active Assessment Encounter for immunization Z23 Active Assessment Dysthymia F34.1 Active Assessment Other chronic pain G89.29 Active Problem Rheumatoid arthritis 714.0 Active Problem Unspecified hereditary and idiopathic peripheral neuropathy 356.9 Active Assessment Hyperinsulinemia E16.1 Active Problem Unspecified backache 724.5 Active Problem Other malaise and fatigue 780.79 Active Problem Gastro-esophageal reflux disease without esophagitis K21.9 Active Medications Medication Code System Code Instructions Start Date End Date Status Dosage Potassium Chloride Marie ER [facility] [address]-91 20 MEQ Orally Once a day 2 tablets Bumetanide [facility] 68657487012 2 MG Orally Once a day 1 tablet Alprazolam [facility] [address]-75 0.25 MG Orally 2 times a day 1 tablet Centrum Silver Adult 50+ [facility] [address]-47 Orally once a day one Plaquenil [facility] [address]-07 200 MG Orally Twice a day 1 tablet with food or milk Test strips ND 0 ... Verio One Touch Once a day Apr 14, 2016 as directed Tizanidine HCl [facility] [address]-46 4 MG Orally 3 times a day 1 tablet as needed tramadol ND 0 50 mg orally 3 times a day November 16, 2014 2 Tablets Blood Glucose Meter [facility] 0 1 glucometer Verio One Touch Once a day Apr 14, 2016 test blood sugar Calcium [facility] [address]1934 600 MG Orally Twice a day 1 tablet with meals Dulcolax [facility] [address] 5 MG Orally Once a day 1 tablet as needed Celexa [facility] [address]-60 20 mg Orally Once a day Jul 21, 2014 1 tablet Gelatin [facility] [address]-21 650 MG Orally twice a day 2 capsules MetFORMIN HCl ER [facility] [address]-66 500 MG Orally 2 times a day Aug 27, 2015 1 tablet with meals Amitiza [facility] [address]-90 24 MCG Orally Twice a day Apr 14, 2016 1 capsule with food Ibuprofen [facility] [address]-89 800 MG Orally 2 times a day December 18, 2015 1 tablet Trazodone HCl [facility] [address]-04 100 MG Orally Once a day January 07, 2016 1 tablet at bedtime Omeprazole [facility] [address]-16 20 MG Orally Once a day Aug 20, 2015 1 capsules Lisinopril [facility] [address]-39 20 MG Orally Once a day 1 tablet Neurontin [facility] [address]-94 300 MG Orally in AM and noon and 2 at hs 1 capsule Procedures Procedure Coding System Code Date SINGLE IMMUNIZATION ADMIN CPT-4 21614 Jun 16, 2016 [facility] VISIT ESTABLISHED PATIENT CPT-4 G0467 Jun 16, 2016 FLUARIX QUAD P-FREE 3 AND UP .50 2015 CPT-4 81526 Jun 16, 2016 Office Visit, Est Pt., Level 3 CPT-4 18934 Jun 16, 2016 Vital Signs Date/Time: Jun 16, 2016 Cardiac Monitoring Heart Rate 76 bpm Weight 206.3 lbs Height 68 in BMI 31.36 Index Blood Pressure Diastolic 78 mmHg Blood Pressure Systolic 118 mmHg Results No Known Results Immunizations Vaccine Administration Date FLUARIX QUAD P-FREE 3 AND UP .50 2015Jun 16, 2016 Summary Purpose [employer]ClinicalWorks Submission
--- OUTSIDE RECORDS SUMMARY | 2018-06-07 11:53 | XMS REPORT ---
Author Author ELISEO BENDER [facility] Address [address] [place] [address] Care Team Providers Care Head Housekeeper Name Role Phone ELISEO BENDER Unavailable PROBLEMS Type Condition ICD9-CM Code ILN40-UF Code Onset Dates Condition Status SNOMED Code Problem Rheumatoid arthritis, involving unspecified site, unspecified rheumatoid factor presence M06.9 Active 05315775 Problem Anxiety F41.9 Active 74053049 Problem Chest pain, unspecified type R07.9 Active 58825234 Problem BMI 30.0-30.9,adult Z68.30 Active 945630246 Problem BMI 31.0-31.9,adult Z68.31 Active 802318779 Problem Postoperative hypothyroidism E89.0 Active 78218916 Problem Depression, unspecified depression type F32.9 Active 47192537 Problem Other atopic dermatitis L20.89 Active 73914477 Problem Thyroid cancer C73 Active 069327252 Problem Low back pain, unspecified back pain laterality, with sciatica presence unspecified M54.5 Active 892683708 Problem Gastro-esophageal reflux disease without esophagitis K21.9 Active 918363184 Problem Other chronic pain G89.29 Active 56240552 Problem Neuropathy G62.9 Active 446773433 Problem Dysthymia F34.1 Active 62647215 Problem Hyperinsulinemia E16.1 Active 99058084 Problem Insomnia G47.00 Active 590205633 ALLERGIES No Information ENCOUNTERS Encounter Location Date Diagnosis [facility] [address] [facility] [id number] [address] Mar, [facility] [id number] [address] Feb, Low back pain, unspecified back pain laterality, with sciatica presence unspecified M54.5 [facility] [id number] [address] January, BMI 30.0-30.9,adult Z68.30 [place] [id number] [place] [address] 25750- 1487 January, Low back pain, unspecified back pain laterality, with sciatica presence unspecified M54.5 [place] [address] 9[address]86- 0205 January, [place] [address] 75865- 2876 Dec, Low back pain, unspecified back pain laterality, with sciatica presence unspecified M54.5 [place] [address] 44413- 7953 Nov, Low back pain, unspecified back pain laterality, with sciatica presence unspecified M54.5 [place] [address] 86941- 7647 Nov, [place] [address] 22714- 3068 Nov, Low back pain, unspecified back pain laterality, with sciatica presence unspecified M54.5 ; Other chronic pain G89.29 ; Rheumatoid arthritis, involving unspecified site, unspecified rheumatoid factor presence M06.9 and Dysthymia F34.1 [place] [id number] [place] [address] 73061- 2176 Oct, Low back pain, unspecified back pain laterality, with sciatica presence unspecified M54.5 [place] [id number] [place] [address] 26223- 4116 Sep, Low back pain, unspecified back pain laterality, with sciatica presence unspecified M54.5 [facility] [id number] [place] [address] 19102 -5729 Sep, Fever R50.9 and URI, acute J06.9 [place] [address] 68893- 3370 Aug, [facility] [id number] [place] [address] 43091- 7177 Aug, Low back pain, unspecified back pain laterality, with sciatica presence unspecified M54.5 [facility] [id number] [place] [address] 00155- 4957 Jul, Low back pain, unspecified back pain laterality, with sciatica presence unspecified M54.5 [facility] [id number] [place] [address] 65620 -6891 15 Jul, 2017 Nausea R11.0 ; Fever and chills R50.9 ; UTI symptoms R39.9 and Hematuria, unspecified type R31.9 [facility] [id number] [place] [address] 76254- 0416 Jul, [place] [address] 21875- 6470 Jun, Low back pain, unspecified back pain laterality, with sciatica presence unspecified M54.5 [facility] [place] [id number] [place] [address] 87747- 1288 Jun, BMI 31.0-31.9,adult Z68.31 [facility] [id number] [place] [address] 26216- 5982 Jun, Neuropathy G62.9 [place] [id number] [place] [address] 94586- 8726 Jun, Low back pain, unspecified back pain laterality, with sciatica presence unspecified M54.5 [place] [id number] [place] [address] 28938- 8079 Jun, Encounter for immunization Z23 [facility] [id number] [place] [address] 46598- 4943 Jun, BMI 31.0-31.9,adult Z68.31 [place] [address] 91851- 3012 Jun, Low back pain, unspecified back pain laterality, with sciatica presence unspecified M54.5 [place] [id number] [place] [address] 75140- 5603 21 May, 2017 Low back pain, unspecified back pain laterality, with sciatica presence unspecified M54.5 ; Other chronic pain G89.29 ; Plantar fasciitis M72.2 ; Rheumatoid arthritis, involving unspecified site, unspecified rheumatoid factor presence M06.9 and History of alcohol abuse Z87.898 [facility] [place] [id number] [place] [address] 35327- 2135 08 May, 2017 Anxiety F41.9 and Low back pain, unspecified back pain laterality, with sciatica presence unspecified M54.5 [facility] [place] [id number] [place] [address] 89047- 2436 Apr, Anxiety F41.9 and Low back pain, unspecified back pain laterality, with sciatica presence unspecified M54.5 [facility] [place] [id number] [place] [address] 62907- 1379 18 Mar, 2017 Acute right-sided low back pain without sciatica M54.5 ; Rash R21 ; Right flank pain R10.9 ; Lipid screening Z13.220 ; Other chronic pain G89.29 ; Hyperinsulinemia E16.1 ; Postoperative hypothyroidism E89.0 and Breast cancer screening Z12.39 [place] [id number] [place] [address] 48590- 3716 14 Mar, 2017 Anxiety F41.9 and Low back pain, unspecified back pain laterality, with sciatica presence unspecified M54.5 [facility] [place] [id number] [place] [address] 93083- 7172 13 Mar, 2017 Acute right-sided low back pain without sciatica M54.5 [facility] [place] [id number] [place] [address] 73075- 9551 07 Mar, 2017 Anxiety F41.9 [place] [address] 35315- 0859 28 Feb, 2017 Right flank pain R10.9 and Anxiety F41.9 [place] [address] 17656- 2497 16 Feb, 2017 BMI 31.0-31.9,adult Z68.31 [place] [address] 26297- 9085 Feb, Low back pain, unspecified back pain laterality, with sciatica presence unspecified M54.5 and Anxiety F41.9 [facility] [address] 66335 -4755 January, Abscess of toe of right foot L02.611 and Other atopic dermatitis L20.89 [place] [address] 91259- 6152 January, Low back pain, unspecified back pain laterality, with sciatica presence unspecified M54.5 and Anxiety F41.9 [place] [address] 24578- 4208 Dec, Anxiety F41.9 and Low back pain, unspecified back pain laterality, with sciatica presence unspecified M54.5 [facility] [place] [id number] [place] [address] 53615 -0835 Dec, Scabies B86 [place] [address] 60263- 8686 Nov, Rash R21 ; Other chronic pain G89.29 ; Hyperinsulinemia E16.1 ; Postoperative hypothyroidism E89.0 ; Breast cancer screening Z12.39 and Lipid screening Z13.220 [place] [address] 28595- 0412 Nov, Anxiety F41.9 and Low back pain, unspecified back pain laterality, with sciatica presence unspecified M54.5 [place] [address] 66523- 5819 Oct, Anxiety F41.9 and Low back pain, unspecified back pain laterality, with sciatica presence unspecified M54.5 [facility] [id number] [place] [address] 88161- 4450 Sep, Anxiety F41.9 and Low back pain, unspecified back pain laterality, with sciatica presence unspecified M54.5 [facility] [id number] [place] [address] 83235- 4467 Sep, Anxiety F41.9 [facility] [address] 52016- 8140 Sep, Gastro-esophageal reflux disease without esophagitis K21.9 [facility] [address] [id number] Sep, Dental examination Z01.20 [facility] [address] 84387- 4366 Sep, Low back pain, unspecified back pain laterality, with sciatica presence unspecified M54.5 and Postoperative hypothyroidism E89.0 [facility] [id number] [place] [address] 45114- 3007 Aug, Anxiety F41.9 [facility] [address] 24596- 0683 Aug, [facility] [id number] [place] [address] 38765- 9488 Aug, Low back pain, unspecified back pain laterality, with sciatica presence unspecified M54.5 ; Other chronic pain G89.29 ; Thyroid cancer C73 and Postoperative hypothyroidism E89.0 [facility] [id number] [place] [address] 43110- 9159 Jul, [facility] [address] 92132- 9669 Jul, Anxiety F41.9 [facility] [id number] [place] [address] 32046- 8751 Jul, [place] [id number] [place] [address] 43675- 2105 Jul, BMI 29.0-29.9,adult Z68.29 [place] [id number] [place] [address] 06883- 6558 Jul, [place] [address] 53459- 8671 Jul, BMI 30.0-30.9,adult Z68.30 [place] [address] 42816- 9942 Jul, Low back pain, unspecified back pain laterality, with sciatica presence unspecified M54.5 and Anxiety F41.9 [place] [id number] [place] [address] 59825- 9484 Jun, Hyperinsulinemia E16.1 [place] [address] 52283- 6571 Jun, BMI 30.0-30.9,adult Z68.30 [place] [address] 49414- 6114 Jun, [place] [address] 67941- 4802 Jun, Hyperinsulinemia E16.1 ; Dysthymia F34.1 ; Encounter for immunization Z23 and Other chronic pain G89.29 [place] [address] 57309- 9803 Jun, Low back pain, unspecified back pain laterality, with sciatica presence unspecified M54.5 [place] [address] 04904- 4766 Jun, BMI 30.0-30.9,adult Z68.30 [place] [id number] [place] [address] 58785- 7835 Jun, Anxiety F41.9 [place] [address] 47496- 2871 May, Hyperinsulinemia E16.1 [place] [address] 93053- 5274 May, Constipation, unspecified constipation type K59.00 [place] [address] 06577- 3584 May, Low back pain, unspecified back pain laterality, with sciatica presence unspecified M54.5 [place] [address] 67719- 8748 May, [place] [address] 322657- 1842 May, Constipation, unspecified constipation type K59.00 [place] [address] 57510- 1195 May, Anxiety F41.9 [place] [address] 06847- 8240 Apr, BMI 31.0-31.9,adult Z68.31 [place] [address] 03134- 7313 Apr, Thyroid goiter E04.9 [place] [address] 85151- 0594 Apr, [place] [address] 50130- 7050 Apr, Low back pain, unspecified back pain laterality, with sciatica presence unspecified M54.5 [place] [address] 54387- 7159 Apr, [place] [id number]- 2019 Apr, Constipation, unspecified constipation type K59.00 ; Thyroid nodule E04.1 ; Family history of colon cancer Z80.0 and Hyperinsulinemia E16.1 [place] [address] [address]- 9780 Apr, Anxiety F41.9 [facility] [id number] [place] [address] 58136- 0612 Mar, [facility] [id number] [place] [address] 37185- 3420 Mar, Low back pain, unspecified back pain laterality, with sciatica presence unspecified M54.5 [facility] [id number] [place] [address] 46365- 5432 Mar, BMI 32.0-32.9,adult Z68.32 [facility] [id number] [place] [address] 12754- 9861 Feb, Anxiety F41.9 [facility] [id number] [place] [address] 28035- 9472 Feb, Depression, unspecified depression type F32.9 [facility] [id number] [place] [address] 35295- 2802 Feb, BMI 32.0-32.9,adult Z68.32 [facility] [id number] [place] [address] 10460- 8244 Feb, Low back pain, unspecified back pain laterality, with sciatica presence unspecified M54.5 [facility] [id number] [place] [address] 77751- 9812 Feb, [facility] [id number] [place] [address] 63872- 6493 Feb, BMI 32.0-32.9,adult Z68.32 [facility] [id number] [place] [address] 84840- 7807 Feb, Anxiety F41.9 [facility] [id number] [place] [address] 16330- 6185 January, BMI 32.0-32.9,adult Z68.32 [place] [id number] [place] [address] 85210- 5113 January, Low back pain, unspecified back pain laterality, with sciatica presence unspecified M54.5 ; Other chronic pain G89.29 ; Weight gain R63.5 and Rheumatoid arthritis, involving unspecified site, unspecified rheumatoid factor presence M06.9 [place] [address] 80010- 9145 January, Low back pain, unspecified back pain laterality, with sciatica presence unspecified M54.5 [place] [address] 93498- 8264 January, BMI 32.0-32.9,adult Z68.32 [place] [address] 30871- 1158 January, BMI 32.0-32.9,adult Z68.32 [place] [address] 38551- 7562 January, BMI 32.0-32.9,adult Z68.32 [place] [address] 99726- 6889 Dec, Insomnia G47.00 and Dysthymia F34.1 [place] [id number] [place] [address] 41835- 9396 Dec, [place] [address] 44396- 4894 Dec, Other chronic pain G89.29 ; Neuropathy G62.9 and Dysthymia F34.1 [place] [address] 97531- 2121 Dec, [place] [id number] [place] [address] 24050- 7033 Nov, [place] [address] 25389- 6165 Nov, [facility] [address] [place] [address] 37875- 4365 Nov, [facility] [id number] [place] [address] 06037- 3851 Oct, [facility] [id number] [place] [address] 85535- 2243 Oct, [facility] [id number] [place] [address] 68775- 0264 Oct, Family history of diabetes mellitus Z83.3 [facility] [id number] [place] [address] 07778- 5110 Oct, [facility] [id number] [place] [address] 87280- 0385 Sep, [facility] [id number] [place] [address] 91583- 7086 Sep, Eye pain, right H57.11 and Other chronic pain G89.29 [facility] [id number] [place] [address] 03462- 9477 Sep, [facility] [id number] [place] [address] 68388- 4113 Sep, [facility] [id number] [place] [address] 35810- 3310 Sep, Hyperinsulinemia E16.1 ; Neuropathy G62.9 ; Low back pain, unspecified back pain laterality, with sciatica presence unspecified M54.5 ; Gastro-esophageal reflux disease without esophagitis K21.9 and Encounter for long-term (current) use of other medications V58.69 [facility] [id number] [place] [address] 24069- 1800 Sep, [facility] [id number] [place] [address] 86887- 8741 Sep, [facility] [id number] [place] [address] 19124- 2395 Sep, [facility] [address] 9648 Sep, [facility] [address] [place] [address] 827110- 5910 Aug, [facility] [address] [place] [address] 714334- 7516 Aug, Family history of diabetes mellitus Z83.3 [facility] [id number] [place] [address] 955629- 4326 Aug, [facility] [id number] [place] [address] 939261- 8757 17 Aug, 2015 [facility] [id number] [place] [address] 33318- 2015 16 Aug, 2015 Family history of diabetes mellitus Z83.3 [facility] [id number] [place] [address] 79472- 4254 14 Aug, 2015 Weight gain R63.5 ; Edema, unspecified R60.9 ; Family history of diabetes mellitus Z83.3 and Gastroesophageal reflux disease with esophagitis K21.0 [facility] [address] [address]- 3240 14 Aug, 2015 [facility] [address] [address]- 1498 Aug, [facility] [address] [address]- 1682 Jul, [facility] [id number] [place] [address] 96488- 5860 Jul, [facility] [id number] [place] [address] 639872- 0292 Jul, [facility] [address]- 3299 Jun, [facility] [address] [place] [address] 49384- 9506 Jun, Nose pain J34.89 ; Encounter for immunization Z23 ; Screening for breast cancer Z12.39 and Encounter for long-term (current) use of other medications V58.69 [facility] [id number] [place] [address] 60799- 6414 Jun, [facility] [id number] [place] [address] 83522- 8531 May, [facility] [id number] [place] [address] 53568- 2718 May, [facility] [id number] [place] [address] 40107- 4811 May, [facility] [id number] [place] [address] 32058- 4854 May, [facility] [id number] [place] [address] 54191- 9151 May, [facility] [id number] [place] [address] 25133- 2490 May, [facility] [id number] [place] [address] 09069- 8764 May, [facility] [id number] [place] [address] 31998- 3394 Apr, [facility] [id number] [place] [address] 08682- 8999 Apr, [facility] [id number] [place] [address] 24864- 0249 Apr, [facility] [id number] [place] [address] 82563- 0448 Mar, [facility] [id number] [place] [address] 00174- 2424 Mar, [facility] [address] [address]- 3488 Mar, Lesion of left shoulder 709.9 [facility] [address] [address]- 5940 Mar, [facility] [id number] [place] [address] 67364- 9230 Mar, [facility] [address] [address]- 3417 Mar, [facility] [id number] [place] [address] 69923- 3472 Feb, [facility] [id number] [place] [address] 82599- 1826 Feb, [facility] [id number] [place] [address] 86319- 5299 Feb, Unspecified backache 724.5 ; Weight gain 783.1 ; Hypothyroid 244.9 ; Edema 782.3 and Diaphoresis 780.8 [facility] [address] [address]- 3757 Feb, [facility] [address], [place] [address]- 3068 Feb, [facility] [address] [address]- 9552 Feb, [facility] [address], [place] [address]- 2833 Feb, [facility] [id number], [place] [address] Feb, [facility] [id number] [address] January, [facility] [id number] [address] January, [facility] [id number], [place] [address] Dec, [facility] [id number] [address] 13 Dec, 2014 [facility] [place] [facility] [address] [id number] [place] [address] 16 Nov, 2014 [facility] [place] [facility] [address] [id number] [place] [address] 16 Nov, 2014 [facility] [place] [facility] [address] [id number] [place] [address] 16 Nov, 2014 [facility] [place] [facility] [address] [id number] [place] [address] 16 Nov, 2014 [facility] [place] [facility] [address] [id number] [place] [address] 16 Nov, 2014 [facility] [place] [facility] [address] [id number] [place] [address] 16 Nov, 2014 [facility] [place] [facility] [address] [id number] [place] [address] Nov, [facility] [place] [facility] [address] [id number] [place] [address] 12 Nov, 2014 [facility] [place] [facility] [address] [id number] [place] [address] Nov, [facility] [place] [facility] [address] [id number] [place] [address] Nov, [facility] [place] [facility] [address] [id number] [place] [address] 05 Nov, 2014 [facility] [place] [facility] [address] [id number] [place] [address] Nov, [facility] [place] [facility] [address] [id number] [place] [address] 04 Nov, 2014 [facility] [place] [facility] [address] [id number] [place] [address] 4704 Oct, [facility] [place] [facility] [address] [id number] [place] [address] 2056 Oct, [facility] [place] [facility] [address] [id number] [place] [address] 7087 Sep, [facility] [place] [facility] [address] [id number] [place] [address]- 7814 Sep, [facility] [place] [facility] [address] [id number] [place] [address]- 2544 Aug, [facility] [place] [facility] [address] [id number] [place] [address]- 3172 Aug, [facility] [place] [facility] [address] [id number] [place] [address]- 6183 Aug, [facility] [place] [facility] [address] [id number] [place] [address]- 0373 Aug, [facility] [place] [facility] [address] [id number] [place] [address]- 5457 Aug, [facility] [place] [facility] [address] [id number] [place] [address]- 7805 Aug, [facility] [place] [facility] [address] [id number] [place] [address]- 6969 Aug, [facility] [place] [facility] [address] [id number] [place] [address]- 0199 Aug, [facility] [place] [facility] [address] [id number] [place] [address]- 3801 Aug, [facility] [place] [facility] [address] [id number] [place] [address]- 4514 Jul, [facility] [place] [facility] [address] [id number] [place] [address]- 5796 Jul, [facility] [place] [facility] [address] [id number] [place] [address]- 2797 Jul, [facility] [place] [facility] [address] [id number] [place] [address]- 2150 Jul, [facility] [place] [facility] [address] [id number] [place] [address]- 7964 Jul, [facility] [place] [facility] [address] [id number] [place] [address]- 0714 Jul, [facility] [place] [facility] [address] [id number] [place] [address]- 1743 Jul, [facility] [place] [facility] [address] [id number] [place] [address]- 4405 Jul, [facility] [place] [facility] [address] [id number] [place] [address]- 0807 Jul, [facility] [place] [facility] [address] [id number] [place] [address]- 5137 Jul, [facility] [place] [facility] [address] [id number] [place] [address]- 7548 Jun, [facility] [place] [facility] [address] [id number] [place] [address]- 2978 Jun, [facility] [place] [facility] [address] [id number] [address] 9746 Jun, [facility] [place] [facility] [address] [id number] [place] [address]- 0602 Jun, [facility] [place] [facility] [address] [id number] [place] [address]- 6295 Jun, [facility] [place] [facility] [address] [id number], [place] [address] 7369 Jun, [facility] [place] [facility] [address] [id number], [place] [address] 46[address] 30 May, 2014 [facility] [place] [facility] [address] [id number] [place] [address]- 1440 30 May, 2014 [facility] [place] [facility] [address] [id number] [place] [address]- 7577 29 May, 2014 [facility] [place] [facility] [address] [id number] [place] [address]- 3092 29 May, 2014 [facility] [place] [facility] [address] [id number] [place] [address]- 3789 24 May, 2013 [facility] [place] [facility] [address] [id number] [place] [address] 2546 24 May, 2013 [facility] [place] [facility] [address] [id number] [place] [address] 2546 May, 2013 [facility] [place] [facility] [address] [id number] [place] [address] 254 May, 2013 [facility] [place] [facility] [address] [id number] [place] [address] 254 05 May, 2013 [facility] [place] [facility] [address] [id number] [place] [address]- 2871 05 May, 2013 [facility] [place] [facility] [address] [id number] [place] [address]- 1940 May, 2013 [facility] [place] [facility] [address] [id number] [place] [address]- 6809 May, 2013 [facility] [place] [facility] [address] [id number] [place] [address]- 7008 Apr, [facility] [place] [facility] [address] [id number] [place] [address]- 6763 Apr, [facility] [place] [facility] [address] [id number] [place] [address]- 0419 Apr, [facility] [place] [facility] [address] [id number] [place] [address]- 2541 Apr, [facility] [place] [facility] [address] [id number] [place] [address]- 2547 Apr, [facility] [place] [facility] [address] [id number] [place] [address]- 2548 Apr, [facility] [place] [facility] [address] [id number] [place] [address]- 2542 Apr, [facility] [place] [facility] [address] [id number] [place] [address]- 254 Apr, [facility] [place] [facility] [address] [id number] [place] [address]- 6156 Apr, 2013 [facility] [place] [facility] [address] [id number] [place] [address]- 7594 Apr, [facility] [place] [facility] [address] [id number] [place] [address]- 9041 Apr, 2013 [facility] [place] [facility] [address] [id number] [place] [address]- 9507 Apr, [facility] [place] [facility] [address] [id number] [place] [address]- 6842 Apr, [facility] [place] [facility] [address] [id number] [place] [address]- 3004 Apr, [facility] [place] [facility] [address] [id number] [place] [address]- 5740 Apr, [facility] [place] [facility] [address] [id number] [place] [address]- 6995 Apr, [facility] [place] [facility] [address] [id number] [place] [address]- 0220 Apr, [facility] [place] [facility] [address] [id number] [place] [address]- 0901 Apr, [facility] [place] [facility] [address] [id number] [place] [address]- 6173 Apr, [facility] [place] [facility] [address] [id number] [place] [address]- 3879 Apr, [facility] [place] [facility] [address] [id number] [place] [address]- 6498 Apr, [facility] [place] [facility] [address] [id number] [place] [address]- 7145 Apr, [facility] [place] [facility] [address] [id number] [place] [address]- 2268 Apr, [facility] [place] [facility] [address] [id number] [place] [address]- 1835 Mar, [facility] [place] [facility] [address] [id number] [place] [address]- 5464 Mar, [facility] [place] [facility] [address] [id number] [place] [address]- 4784 Mar, [facility] [place] [facility] [address] [id number] [place] [address]- 4892 Mar, [facility] [place] [facility] [address] [id number] [place] [address]- 1089 Mar, [facility] [place] [facility] [address] [id number] [place] [address]- 6476 Mar, [facility] [place] [facility] [address] [id number] [place] [address]- 8332 Mar, [facility] [place] [facility] [address] [id number] [place] [address]- 1139 Mar, [facility] [place] [facility] [address] [id number] [place] [address]- 5036 Mar, [facility] [place] [facility] [address] [id number] [place] [address]- 1281 Mar, [facility] [place] [facility] [address] [id number] [place] [address]- 7946 Mar, [facility] [place] [facility] [address] [id number] [place] [address]- 9097 Mar, [facility] [place] [facility] [address] [id number] [place] [address]- 9330 Mar, [facility] [place] [facility] [address] [id number] [place] [address]- 0615 Mar, [facility] [place] [facility] [address] [id number] [place] [address]- 8428 Feb, [facility] [place] [facility] [address] [id number] [place] [address]- 9016 Feb, [facility] [place] [facility] [address] [id number] [place] [address]- 6388 11 Feb, 2014 [facility] [place] [facility] [address] [id number] [place] [address]- 5114 Feb, [facility] [place] [facility] [address] [id number] [place] [address]- 4185 Feb, [facility] [place] [facility] [address] [id number] [place] [address]- 1922 Feb, [facility] [place] [facility] [address] [id number] [place] [address]- 3988 Feb, [facility] [place] [facility] [address] [id number] [place] [address]- 0003 Feb, [facility] [place] [facility] [address] [id number] [place] [address]- 8183 Dec, [facility] [place] [facility] [address] [id number] [place] [address]- 4107 Dec, [facility] [place] [facility] [address] [id number]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
[2018-06-07] MEDS ORDERED: MIDAZOLAM 2 MG/2 ML (VERSED) VIAL ONE (11:54)
[2018-06-07] MEDS ORDERED: ONDANSETRON 4 MG/2 ML (SDV) Z0FRAN ONE (11:54)
[2018-06-07] MEDS ORDERED: LIDOCAINE PF 2% 2 ML (XYLOCAINE) VIAL ONE (11:54)
[2018-06-07] MEDS ORDERED: proPOfol 200 MG/20 ML (DIPRIVAN) VIAL IV ONE (11:54)
[2018-06-07] MEDS ORDERED: fentaNYL INJECTION 100 MCG/2 ML AMP ONE (11:54)
--- OUTSIDE RECORDS SUMMARY | 2018-06-07 11:54 | XMS REPORT ---
Author Author SHIRLEY BENDER Organization [employer] Address Unknown Phone Unavailable Care Team Providers Care Logistic Manager Name Role Phone SHIRLEY BENDER CP Unavailable Allergies No Known Allergies [...] Instructions Start Date End Date Status Dosage Xanax NDC [address]-55 0.25 MG November 15, 2014 1 tablet by Oral route 3 times per day PRN anxiety tramadol NDC 0 50 mg Isaac to sign for Shirley November 16, 2014 take 2 tablet by Oral route every 8 hours as needed mt Results No Known Results Summary Purpose [employer] Submission
--- OUTSIDE RECORDS SUMMARY | 2018-06-07 11:54 | XMS REPORT ---
Author Author ELISEO BENDER [facility] Address [address] [place] [address] Care Team Providers Care Spool Tender Name Role Phone ELISEO BENDER Unavailable PROBLEMS Type Condition ICD9-CM Code [id number] Code Onset Dates Condition Status SNOMED Code Problem Insomnia G47.00 Active 151399532 Problem Chest pain, unspecified type R07.9 Active 94817902 Problem Rheumatoid arthritis, involving unspecified site, unspecified rheumatoid factor presence M06.9 Active 55095053 Problem Other atopic dermatitis L20.89 Active 21318263 Problem Postoperative hypothyroidism E89.0 Active 83741578 Problem Depression, unspecified depression type F32.9 Active 16889058 Problem Anxiety F41.9 Active 86685312 Problem Thyroid cancer C73 Active 114390924 Problem BMI 30.0-30.9,adult Z68.30 Active 713890573 Problem Hyperinsulinemia E16.1 Active 69330054 Problem Gastro-esophageal reflux disease without esophagitis K21.9 Active 202196599 Problem Low back pain, unspecified back pain laterality, with sciatica presence unspecified M54.5 Active 292295790 Problem Other chronic pain G89.29 Active 48356266 Problem Neuropathy G62.9 Active 175514714 Problem Dysthymia F34.1 Active 96246245 ALLERGIES Unknown Allergies SOCIAL HISTORY No smoking Hx information available PLAN OF CARE VITAL SIGNS MEDICATIONS Medication Instructions Dosage Frequency Start Date End Date Duration Status Alprazolam 0.25 MG Orally 2 times a day 1 tablet 12h 07 days Active RESULTS No Results PROCEDURES No Known procedures IMMUNIZATIONS No Known Immunizations
--- OUTSIDE RECORDS SUMMARY | 2018-06-07 11:54 | XMS REPORT ---
Author Author ELISEO BENDER Organization [employer] Address Unknown Phone Unavailable Care Team Providers Care Coach Driver Name Role Phone ELISEO BENDER CP Unavailable [...] Start Date End Date Status Dosage Xanax [facility] [id number] 0.25 MG November 15, 2014 1 tablet by Oral route 2 times per day PRN anxiety Results No Known Results Summary Purpose [employer] Submission
--- OUTSIDE RECORDS SUMMARY | 2018-06-07 11:54 | XMS REPORT ---
Author Author ELISEO BENDER [facility] Address [address] [place] [address] Care Team Providers Care Cook Dinner Name Role Phone ELISEO BENDER Unavailable PROBLEMS Type Condition ICD9-CM Code [id number] Code Onset Dates Condition Status SNOMED Code Problem Neuropathy G62.9 Active 823595891 Problem Other chronic pain G89.29 Active 80367243 Problem Hyperinsulinemia E16.1 Active 54330472 Problem Depression, unspecified depression type F32.9 Active 45399715 Problem Anxiety F41.9 Active 92247444 Problem Insomnia G47.00 Active 322093631 Problem Dysthymia F34.1 Active 93880528 Problem Chest pain, unspecified type R07.9 Active 72157781 Problem Rheumatoid arthritis, involving unspecified site, unspecified rheumatoid factor presence M06.9 Active 05955841 Assessment Constipation, unspecified constipation type K59.00 May, Active 64328697 Problem Unspecified hereditary and idiopathic peripheral neuropathy 356.9 Active 527045054 Problem Unspecified backache 724.5 Active 665002243 Problem Other malaise and fatigue 780.79 Active 981042826 Problem Gastro-esophageal reflux disease without esophagitis K21.9 Active 069919993 Problem Rheumatoid arthritis 714.0 Active 94158555 Problem Low back pain, unspecified back pain laterality, with sciatica presence unspecified M54.5 Active 145170659 ALLERGIES Unknown Allergies SOCIAL HISTORY No smoking Hx information available PLAN OF CARE VITAL SIGNS MEDICATIONS Medication Instructions Dosage Frequency Start Date End Date Duration Status Ibuprofen 800 MG Orally 2 times a day 1 tablet 12h Dec, Active Lisinopril 20 MG Orally Once a day 1 tablet 24h Active Trazodone HCl 100 MG Orally Once a day 1 tablet at bedtime 24h January, 90 days Active Gelatin 650 MG Orally twice a day 2 capsules 12h Active Bumetanide 2 MG Orally Once a day 1 tablet 24h 90 Active Neurontin 300 MG Orally in AM and noon and 2 at hs 1 capsule Active Celexa 20 mg Orally Once a day 1 tablet 24h Jul, 90 days Active Omeprazole 20 MG Orally Once a day 1 capsules 24h Aug, Active tramadol 50 mg orally 3 times a day 2 Tablets 8h Nov, 28 days Active Alprazolam 0.25 MG Orally 2 times a day 1 tablet 12h 28 days Active Tizanidine HCl 4 MG Orally 3 times a day 1 tablet as needed 8h Active Dulcolax 5 MG Orally Once a day 1 tablet as needed 24h Active Test strips ... Verio One Touch Once a day as directed 24h Apr, Active Calcium 600 MG Orally Twice a day 1 tablet with meals 12h Active Potassium Chloride Marie ER 20 MEQ Orally Once a day 2 tablets 24h 90 days Active ibuprofen 800 mg 1 tab Active Centrum Silver Adult 50+ Orally once a day one 24h Active Blood Glucose Meter 1 glucometer Verio One Touch Once a day test blood sugar 24h Apr, Active MetFORMIN HCl ER 500 MG Orally 2 times a day 1 tablet with evening meal 12h Aug, Active Plaquenil 200 MG Orally Twice a day 1 tablet with food or milk 12h Active Amitiza 24 MCG Orally Twice a day 1 capsule with food 12h Apr, 90 days Active RESULTS No Results PROCEDURES No Known procedures IMMUNIZATIONS No Known Immunizations
--- OUTSIDE RECORDS SUMMARY | 2018-06-07 11:54 | XMS REPORT ---
Author Author ELISEO BENDER Organization [employer] Address Unknown Phone Unavailable Care Team Providers Care Storm Door Maker Name Role Phone ELISEO BENDER CP [...] Status Dosage tramadol NDC 0 50 mg 3 times a day November 16, 2014 1tablet by Oral route every 8 hours as needed mt Results No Known Results Summary Purpose [employer] Submission
--- OUTSIDE RECORDS SUMMARY | 2018-06-07 11:54 | XMS REPORT ---
Author Author JARET OZUNA [facility] [employer] Address Unknown Phone Unavailable Care Team Providers Care Yardage Caller Name Role Phone JARET OZUNA CP Unavailable Allergies No Known Allergies Problems [...] and idiopathic peripheral neuropathy 356.9 Active Assessment BMI 32.0-32.9,adult Z68.32 Active Problem Unspecified backache 724.5 Active Problem Other malaise and fatigue 780.79 Active Problem Gastro-esophageal reflux disease without esophagitis K21.9 Active Medications No Known Medications Procedures Procedure Coding System Code Date No Charge CPT-4 25657 March 20, 2016 Vital Signs Date/Time: March 20, 2016 Cardiac Monitoring Heart Rate 88 bpm Weight 212.0 lbs Height 68 in Blood Pressure Diastolic 72 mmHg Blood Pressure Systolic 118 mmHg Results No Known Results Summary Purpose [employer] Submission
--- OUTSIDE RECORDS SUMMARY | 2018-06-07 11:54 | XMS REPORT ---
Author Author ELISEO BENDER Organization [employer] Address Unknown Phone Unavailable Care Team Providers Care Electroencephalogram Technologist Name Role Phone ELISEO BENDER CP Unavailable [...] Status Dosage tramadol NDC 0 50 mg November 16, 2014 take 2 tablet by Oral route every 8 hours as needed mt Results No Known Results Summary Purpose [employer] Submission
--- OUTSIDE RECORDS SUMMARY | 2018-06-07 11:55 | XMS REPORT ---
Author Author ELISEO BENDER [facility] Address [address] [place] [address] Care Team Providers Care Record Label Intern Name Role Phone ELISEO BENDER Unavailable PROBLEMS Type Condition ICD9-CM Code MYT54-CP Code Onset Dates Condition Status SNOMED Code Problem Rheumatoid arthritis, involving unspecified site, unspecified rheumatoid factor presence M06.9 Active 94206392 Problem Anxiety F41.9 Active 31327581 Problem Chest pain, unspecified type R07.9 Active 41504541 Problem BMI 30.0-30.9,adult Z68.30 Active 442851319 Problem BMI 31.0-31.9,adult Z68.31 Active 268897156 Problem Postoperative hypothyroidism E89.0 Active 61362401 Problem Depression, unspecified depression type F32.9 Active 65764159 Problem Other atopic dermatitis L20.89 Active 86546591 Problem Thyroid cancer C73 Active 117528066 Problem Low back pain, unspecified back pain laterality, with sciatica presence unspecified M54.5 Active 033921330 Problem Gastro-esophageal reflux disease without esophagitis K21.9 Active 116329913 Problem Other chronic pain G89.29 Active 83455372 Problem Neuropathy G62.9 Active 339896369 Problem Dysthymia F34.1 Active 43975136 Problem Hyperinsulinemia E16.1 Active 96149601 Problem Insomnia G47.00 Active 627828922 ALLERGIES No Information ENCOUNTERS Encounter Location Date Diagnosis [facility] [address] [facility] [id number] [address] Mar, [facility] [address] [id number] [address] Feb, Low back pain, unspecified back pain laterality, with sciatica presence unspecified M54.5 [facility] [address] [id number] [address] January, BMI 30.0-30.9,adult Z68.30 [place] [id number] [place] [address] 13685- 2479 January, Low back pain, unspecified back pain laterality, with sciatica presence unspecified M54.5 [place] [address] 26322- 2430 January, [place] [address] 42666- 2526 Dec, Low back pain, unspecified back pain laterality, with sciatica presence unspecified M54.5 [place] [address] 24568- 9526 Nov, Low back pain, unspecified back pain laterality, with sciatica presence unspecified M54.5 [place] [address] 10912- 0516 Nov, [place] [address] 47019- 3228 Nov, Low back pain, unspecified back pain laterality, with sciatica presence unspecified M54.5 ; Other chronic pain G89.29 ; Rheumatoid arthritis, involving unspecified site, unspecified rheumatoid factor presence M06.9 and Dysthymia F34.1 [place] [id number] [place] [address] 23253- 5379 Oct, Low back pain, unspecified back pain laterality, with sciatica presence unspecified M54.5 [place] [id number] [place] [address] 33586- 9059 Sep, Low back pain, unspecified back pain laterality, with sciatica presence unspecified M54.5 [facility] [id number] [place] [address] 77090 -2633 Sep, Fever R50.9 and URI, acute J06.9 [place] [address] 00043- 0937 Aug, [facility] [id number] [place] [address] 07084- 4302 Aug, Low back pain, unspecified back pain laterality, with sciatica presence unspecified M54.5 [facility] [id number] [place] [address] 77749- 5013 Jul, Low back pain, unspecified back pain laterality, with sciatica presence unspecified M54.5 [facility] [id number] [place] [address] 89660 -3066 15 Jul, 2017 Nausea R11.0 ; Fever and chills R50.9 ; UTI symptoms R39.9 and Hematuria, unspecified type R31.9 [facility] [id number] [place] [address] 58586- 0374 Jul, [place] [address] 01218- 4030 Jun, Low back pain, unspecified back pain laterality, with sciatica presence unspecified M54.5 [place] [id number] [place] [address] 41611- 7111 Jun, BMI 31.0-31.9,adult Z68.31 [facility] [id number] [place] [address] 73065- 7175 Jun, Neuropathy G62.9 [place] [id number] [place] [address] 61278- 1007 Jun, Low back pain, unspecified back pain laterality, with sciatica presence unspecified M54.5 [place] [id number] [place] [address] 20752- 8351 Jun, Encounter for immunization Z23 [facility] [id number] [place] [address] 61774- 4832 Jun, BMI 31.0-31.9,adult Z68.31 [place] [address] 91217- 7990 Jun, Low back pain, unspecified back pain laterality, with sciatica presence unspecified M54.5 [place] [id number] [place] [address] 01086- 2277 21 May, 2017 Low back pain, unspecified back pain laterality, with sciatica presence unspecified M54.5 ; Other chronic pain G89.29 ; Plantar fasciitis M72.2 ; Rheumatoid arthritis, involving unspecified site, unspecified rheumatoid factor presence M06.9 and History of alcohol abuse Z87.898 [place] [id number] [place] [address] 62142- 5096 08 May, 2017 Anxiety F41.9 and Low back pain, unspecified back pain laterality, with sciatica presence unspecified M54.5 [place] [id number] [place] [address] 69138- 1511 Apr, Anxiety F41.9 and Low back pain, unspecified back pain laterality, with sciatica presence unspecified M54.5 [place] [id number] [place] [address] 36642- 6124 18 Mar, 2017 Acute right-sided low back pain without sciatica M54.5 ; Rash R21 ; Right flank pain R10.9 ; Lipid screening Z13.220 ; Other chronic pain G89.29 ; Hyperinsulinemia E16.1 ; Postoperative hypothyroidism E89.0 and Breast cancer screening Z12.39 [place] [id number] [place] [address] 55991- 3823 14 Mar, 2017 Anxiety F41.9 and Low back pain, unspecified back pain laterality, with sciatica presence unspecified M54.5 [place] [id number] [place] [address] 27031- 6834 13 Mar, 2017 Acute right-sided low back pain without sciatica M54.5 [place] [id number] [place] [address] 10566- 9849 07 Mar, 2017 Anxiety F41.9 [place] [address] 44664- 6714 28 Feb, 2017 Right flank pain R10.9 and Anxiety F41.9 [place] [address] 50852- 0361 16 Feb, 2017 BMI 31.0-31.9,adult Z68.31 [place] [address] 00906- 3336 Feb, Low back pain, unspecified back pain laterality, with sciatica presence unspecified M54.5 and Anxiety F41.9 [facility] [address] 18329 -0130 January, Abscess of toe of right foot L02.611 and Other atopic dermatitis L20.89 [place] [address] 78935- 8704 January, Low back pain, unspecified back pain laterality, with sciatica presence unspecified M54.5 and Anxiety F41.9 [place] [address] 82384- 7181 Dec, Anxiety F41.9 and Low back pain, unspecified back pain laterality, with sciatica presence unspecified M54.5 [facility] [place] [id number] [place] [address] 31970 -3418 Dec, Scabies B86 [place] [address] 89113- 7994 Nov, Rash R21 ; Other chronic pain G89.29 ; Hyperinsulinemia E16.1 ; Postoperative hypothyroidism E89.0 ; Breast cancer screening Z12.39 and Lipid screening Z13.220 [place] [address] 28778- 6660 Nov, Anxiety F41.9 and Low back pain, unspecified back pain laterality, with sciatica presence unspecified M54.5 [place] [address] 70733- 6655 Oct, Anxiety F41.9 and Low back pain, unspecified back pain laterality, with sciatica presence unspecified M54.5 [facility] [id number] [place] [address] 78467- 2446 Sep, Anxiety F41.9 and Low back pain, unspecified back pain laterality, with sciatica presence unspecified M54.5 [facility] [id number] [place] [address] 30229- 9537 Sep, Anxiety F41.9 [facility] [address] 40734- 3202 Sep, Gastro-esophageal reflux disease without esophagitis K21.9 [facility] [address] [id number] Sep, Dental examination Z01.20 [facility] [address] 43717- 9201 Sep, Low back pain, unspecified back pain laterality, with sciatica presence unspecified M54.5 and Postoperative hypothyroidism E89.0 [facility] [id number] [place] [address] 57723- 8819 Aug, Anxiety F41.9 [facility] [address] 01914- 0246 Aug, [facility] [id number] [place] [address] 45933- 8279 Aug, Low back pain, unspecified back pain laterality, with sciatica presence unspecified M54.5 ; Other chronic pain G89.29 ; Thyroid cancer C73 and Postoperative hypothyroidism E89.0 [facility] [id number] [place] [address] 61314- 5004 Jul, [facility] [address] 18147- 1069 Jul, Anxiety F41.9 [facility] [id number] [place] [address] 71737- 2273 Jul, [place] [id number] [place] [address] 35103- 4497 Jul, BMI 29.0-29.9,adult Z68.29 [place] [id number] [place] [address] 31016- 0444 Jul, [place] [address] 25708- 2021 Jul, BMI 30.0-30.9,adult Z68.30 [place] [address] 55740- 2179 Jul, Low back pain, unspecified back pain laterality, with sciatica presence unspecified M54.5 and Anxiety F41.9 [place] [id number] [place] [address] 36075- 5401 Jun, Hyperinsulinemia E16.1 [place] [address] 05049- 6954 Jun, BMI 30.0-30.9,adult Z68.30 [place] [address] 51999- 0910 Jun, [place] [address] 98480- 4561 Jun, Hyperinsulinemia E16.1 ; Dysthymia F34.1 ; Encounter for immunization Z23 and Other chronic pain G89.29 [place] [address] 28270- 3604 Jun, Low back pain, unspecified back pain laterality, with sciatica presence unspecified M54.5 [place] [address] 52561- 1829 Jun, BMI 30.0-30.9,adult Z68.30 [place] [id number] [place] [address] 11210- 7190 Jun, Anxiety F41.9 [place] [address] 44031- 9012 May, Hyperinsulinemia E16.1 [place] [address] 79136- 1515 May, Constipation, unspecified constipation type K59.00 [place] [address] 29721- 5689 May, Low back pain, unspecified back pain laterality, with sciatica presence unspecified M54.5 [place] [address] 05198- 8547 May, [place] [address] 156904- 8573 May, Constipation, unspecified constipation type K59.00 [place] [address] 51875- 2533 May, Anxiety F41.9 [place] [address] 12651- 6560 Apr, BMI 31.0-31.9,adult Z68.31 [place] [address] 42025- 4848 Apr, Thyroid goiter E04.9 [place] [address] 55797- 3507 Apr, [place] [address] 89520- 4375 Apr, Low back pain, unspecified back pain laterality, with sciatica presence unspecified M54.5 [place] [address] 02390- 2544 Apr, [place] [address]- 3183 Apr, Constipation, unspecified constipation type K59.00 ; Thyroid nodule E04.1 ; Family history of colon cancer Z80.0 and Hyperinsulinemia E16.1 [place] [address] [address]- 0130 Apr, Anxiety F41.9 [facility] [id number] [place] [address] 60760- 4734 Mar, [facility] [id number] [place] [address] 07527- 4975 Mar, Low back pain, unspecified back pain laterality, with sciatica presence unspecified M54.5 [facility] [id number] [place] [address] 80589- 0473 Mar, BMI 32.0-32.9,adult Z68.32 [facility] [id number] [place] [address] 62197- 0685 Feb, Anxiety F41.9 [facility] [id number] [place] [address] 25870- 3533 Feb, Depression, unspecified depression type F32.9 [facility] [id number] [place] [address] 65364- 9507 Feb, BMI 32.0-32.9,adult Z68.32 [facility] [id number] [place] [address] 52612- 0594 Feb, Low back pain, unspecified back pain laterality, with sciatica presence unspecified M54.5 [facility] [id number] [place] [address] 35250- 6480 Feb, [facility] [id number] [place] [address] 64410- 1380 Feb, BMI 32.0-32.9,adult Z68.32 [facility] [id number] [place] [address] 58147- 7883 Feb, Anxiety F41.9 [facility] [address] [place] [address] 63031- 2397 January, BMI 32.0-32.9,adult Z68.32 [place] [id number] [place] [address] 82018- 2221 January, Low back pain, unspecified back pain laterality, with sciatica presence unspecified M54.5 ; Other chronic pain G89.29 ; Weight gain R63.5 and Rheumatoid arthritis, involving unspecified site, unspecified rheumatoid factor presence M06.9 [place] [address] 64098- 1238 January, Low back pain, unspecified back pain laterality, with sciatica presence unspecified M54.5 [place] [address] 77750- 8347 January, BMI 32.0-32.9,adult Z68.32 [place] [address] 02749- 3667 January, BMI 32.0-32.9,adult Z68.32 [place] [address] 47362- 8284 January, BMI 32.0-32.9,adult Z68.32 [place] [address] 87004- 9776 Dec, Insomnia G47.00 and Dysthymia F34.1 [place] [id number] [place] [address] 61641- 4528 Dec, [place] [address] 83733- 5534 Dec, Other chronic pain G89.29 ; Neuropathy G62.9 and Dysthymia F34.1 [place] [address] 30868- 5220 Dec, [place] [id number] [place] [address] 19796- 0248 Nov, [place] [address] 22274- 9508 Nov, [facility] [address] [place] [address] 26433- 3137 Nov, [facility] [id number] [place] [address] 21705- 6991 Oct, [facility] [id number] [place] [address] 03479- 2483 Oct, [facility] [id number] [place] [address] 91220- 6907 Oct, Family history of diabetes mellitus Z83.3 [facility] [id number] [place] [address] 92924- 3511 Oct, [facility] [id number] [place] [address] 51592- 8758 Sep, [facility] [id number] [place] [address] 53312- 6461 Sep, Eye pain, right H57.11 and Other chronic pain G89.29 [facility] [id number] [place] [address] 61032- 8655 Sep, [facility] [id number] [place] [address] 55082- 9494 Sep, [facility] [id number] [place] [address] 95643- 4285 Sep, Hyperinsulinemia E16.1 ; Neuropathy G62.9 ; Low back pain, unspecified back pain laterality, with sciatica presence unspecified M54.5 ; Gastro-esophageal reflux disease without esophagitis K21.9 and Encounter for long-term (current) use of other medications V58.69 [facility] [id number] [place] [address] 06989- 6175 Sep, [facility] [id number] [place] [address] 25668- 3123 Sep, [facility] [id number] [place] [address] 59655- 2503 Sep, [facility] [address]- 0339 Sep, [facility] [address] [place] [address] 670260- 9315 Aug, [facility] [address] [place] [address] 957011- 5145 Aug, Family history of diabetes mellitus Z83.3 [facility] [id number] [place] [address] 515647- 7629 Aug, [facility] [id number] [place] [address] 034471- 6922 17 Aug, 2015 [facility] [id number] [place] [address] 96589- 9496 16 Aug, 2015 Family history of diabetes mellitus Z83.3 [facility] [id number] [place] [address] 01344- 1234 14 Aug, 2015 Weight gain R63.5 ; Edema, unspecified R60.9 ; Family history of diabetes mellitus Z83.3 and Gastroesophageal reflux disease with esophagitis K21.0 [facility] [address] [address]- 0379 14 Aug, 2015 [facility] [address], [place] [address]- 2235 Aug, [facility] [address], [place] [address]- 5212 Jul, [facility] [address] [place] [address] 99082- 4430 Jul, [facility] [id number] [place] [address] 987951- 2496 Jul, [facility] [address] 5508 Jun, [facility] [address] [place] [address] 31862- 2142 Jun, Nose pain J34.89 ; Encounter for immunization Z23 ; Screening for breast cancer Z12.39 and Encounter for long-term (current) use of other medications V58.69 [facility] [address] [place] [address] 52739- 6852 Jun, [facility] [id number] [place] [address] 28467- 3106 May, [facility] [id number] [place] [address] 66581- 2798 May, [facility] [id number] [place] [address] 69543- 5253 May, [facility] [id number] [place] [address] 72246- 2938 May, [facility] [id number] [place] [address] 70205- 8495 May, [facility] [id number] [place] [address] 38483- 0225 May, [facility] [id number] [place] [address] 01266- 4112 May, [facility] [id number] [place] [address] 88842- 4886 Apr, [facility] [address] [place] [address] 28344- 5541 Apr, [facility] [id number] [place] [address] 60106- 0857 Apr, [facility] [id number] [place] [address] 76332- 3168 Mar, [facility] [id number] [place] [address] 00698- 3812 Mar, [facility] [address] [address]- 2415 Mar, Lesion of left shoulder 709.9 [facility] [address] [address]- 9879 Mar, [facility] [id number] [place] [address] 87432- 5134 Mar, [facility] [address] [address]- 0932 Mar, [facility] [id number] [place] [address] 59413- 7091 Feb, [facility] [id number] [place] [address] 96489- 6321 Feb, [facility] [id number] [place] [address] 04504- 8866 Feb, Unspecified backache 724.5 ; Weight gain 783.1 ; Hypothyroid 244.9 ; Edema 782.3 and Diaphoresis 780.8 [facility] [address] [address]- 6534 Feb, [facility] [address] [address]- 6890 Feb, [facility] [id number], [place] [address]- 2907 Feb, [facility] [address], [place] [address]- 5130 Feb, [facility] [address] [address]- 9388 Feb, [facility] [address], [place] [address]- 5079 January, [facility] [address] [address]- 6402 January, [facility] [id number] [address]- 2320 Dec, [facility] [address] [address] 13 Dec, 2014 [facility] [place] [facility] [address] [id number] [place] [address] 16 Nov, 2014 [facility] [place] [facility] [address] [id number] [place] [address] 16 Nov, 2014 [facility] [place] [facility] [address] [id number] [place] [address] 16 Nov, 2014 [facility] [place] [facility] [address] [id number] [place] [address] 16 Nov, 2014 [facility] [place] [facility] [address] [id number] [place] [address] 16 Nov, 2014 [facility] [place] [facility] [address] [id number] [place] [address] 16 Nov, 2014 [facility] [place] [facility] [address] [id number] [place] [address] Nov, [facility] [place] [facility] [address] [id number] [place] [address] 12 Nov, 2014 [facility] [place] [facility] [address] [id number] [place] [address] Nov, [facility] [place] [facility] [address] [id number] [place] [address] Nov, [facility] [place] [facility] [address] [id number] [place] [address] 05 Nov, 2014 [facility] [place] [facility] [address] [id number] [place] [address] Nov, [facility] [place] [facility] [address] [id number] [place] [address] 04 Nov, 2014 [facility] [place] [facility] [address] [id number] [place] [address] Oct, [facility] [place] [facility] [address] [id number] [place] [address] Oct, [facility] [place] [facility] [address] [id number] [place] [address] Sep, [facility] [place] [facility] [address] [id number] [place] [address] Sep, [facility] [place] [facility] [address] [id number] [place] [address]- [address] Aug, [facility] [place] [facility] [address] [id number] [place] [address] Aug, [facility] [place] [facility] [address] [id number] [place] [address] Aug, [facility] [place] [facility] [address] [id number] [place] [address] Aug, [facility] [place] [facility] [address] [id number] [place] [address] Aug, [facility] [place] [facility] [address] [id number] [place] [address] Aug, [facility] [place] [facility] [address] [id number] [place] [address] Aug, [facility] [place] [facility] [address] [id number] [place] [address] Aug, [facility] [place] [facility] [address] [id number] [place] [address] 1262 Aug, [facility] [place] [facility] [address] [id number] [place] [address] 4[address] Jul, [facility] [place] [facility] [address] [id number] [place] [address] 7858 Jul, [facility] [place] [facility] [address] [id number] [place] [address] 8883 Jul, [facility] [place] [facility] [address] [id number] [place] [address] 8119 Jul, [facility] [place] [facility] [address] [id number] [place] [address]- 7542 Jul, [facility] [place] [facility] [address] [id number] [place] [address] Jul, [facility] [place] [facility] [address] [id number] [place] [address] 8371 Jul, [facility] [place] [facility] [address] [id number] [place] [address] 9606 Jul, [facility] [place] [facility] [address] [id number] [place] [address] 6999 Jul, [facility] [place] [facility] [address] [id number] [place] [address]- 9367 Jul, [facility] [place] [facility] [address] [id number] [place] [address]- 1162 Jun, [facility] [place] [facility] [address] [id number] [place] [address]- 4434 Jun, [facility] [place] [facility] [address] [id number], [place] [address] Jun, [facility] [place] [facility] [address] [id number] [place] [address]- 2435 Jun, [facility] [place] [facility] [address] [id number] [place] [address]- 6153 Jun, [facility] [place] [facility] [address] [id number], [place] [address] 1767 Jun, [facility] [place] [facility] [address] [id number], [place] [address] 30 May, 2014 [facility] [place] [facility] [address] [id number] [place] [address]- 7969 30 May, 2014 [facility] [place] [facility] [address] [id number] [place] [address]- 4779 29 May, 2014 [facility] [place] [facility] [address] [id number] [place] [address]- 9880 29 May, 2014 [facility] [place] [facility] [address] [id number] [place] [address]- 6793 24 May, 2013 [facility] [place] [facility] [address] [id number] [place] [address] 2546 24 May, 2013 [facility] [place] [facility] [address] [id number] [place] [address] 2546 May, 2013 [facility] [place] [facility] [address] [id number] [place] [address] 2541 May, 2013 [facility] [place] [facility] [address] [id number] [place] [address] 2540 05 May, 2013 [facility] [place] [facility] [address] [id number] [place] [address]- 7919 05 May, 2013 [facility] [place] [facility] [address] [id number] [place] [address]- 1634 May, 2013 [facility] [place] [facility] [address] [id number] [place] [address]- 2221 May, 2013 [facility] [place] [facility] [address] [id number] [place] [address]- 6859 Apr, [facility] [place] [facility] [address] [id number] [place] [address]- 7907 Apr, [facility] [place] [facility] [address] [id number] [place] [address]- 4553 Apr, [facility] [place] [facility] [address] [id number] [place] [address]- 2544 Apr, [facility] [place] [facility] [address] [id number] [place] [address]- 2541 Apr, [facility] [place] [facility] [address] [id number] [place] [address]- 2541 Apr, [facility] [place] [facility] [address] [id number] [place] [address]- 2549 Apr, [facility] [place] [facility] [address] [id number] [place] [address]- 2542 Apr, [facility] [place] [facility] [address] [id number] [place] [address]- 8367 Apr, 2013 [facility] [place] [facility] [address] [id number] [place] [address]- 5469 Apr, [facility] [place] [facility] [address] [id number] [place] [address]- 5942 Apr, 2013 [facility] [place] [facility] [address] [id number] [place] [address]- 2843 Apr, [facility] [place] [facility] [address] [id number] [place] [address]- 0843 Apr, [facility] [place] [facility] [address] [id number] [place] [address] 1948 Apr, [facility] [place] [facility] [address] [id number] [place] [address]- 8086 Apr, [facility] [place] [facility] [address] [id number] [place] [address]- 1850 Apr, [facility] [place] [facility] [address] [id number] [place] [address]- 7381 Apr, [facility] [place] [facility] [address] [id number] [place] [address]- 8549 Apr, [facility] [place] [facility] [address] [id number] [place] [address]- 1682 Apr, [facility] [place] [facility] [address] [id number] [place] [address]- 4960 Apr, [facility] [place] [facility] [address] [id number] [place] [address]- 2416 Apr, [facility] [place] [facility] [address] [id number] [place] [address]- 3338 Apr, [facility] [place] [facility] [address] [id number] [place] [address]- 5451 Apr, [facility] [place] [facility] [address] [id number] [place] [address]- 1243 Mar, [facility] [place] [facility] [address] [id number] [place] [address]- 6002 Mar, [facility] [place] [facility] [address] [id number] [place] [address]- 5019 Mar, [facility] [place] [facility] [address] [id number] [place] [address]- 7034 Mar, [facility] [place] [facility] [address] [id number] [place] [address]- 0663 Mar, [facility] [place] [facility] [address] [id number] [place] [address]- 3191 Mar, [facility] [place] [facility] [address] [id number] [place] [address]- 1557 Mar, [facility] [place] [facility] [address] [id number] [place] [address]- 4371 Mar, [facility] [place] [facility] [address] [id number] [place] [address]- 6761 Mar, [facility] [place] [facility] [address] [id number] [place] [address]- 3424 Mar, [facility] [place] [facility] [address] [id number] [place] [address]- 9496 Mar, [facility] [place] [facility] [address] [id number] [place] [address]- 6903 Mar, [facility] [place] [facility] [address] [id number] [place] [address]- 3680 Mar, [facility] [place] [facility] [address] [id number] [place] [address]- 1514 Mar, [facility] [place] [facility] [address] [id number] [place] [address]- 1640 Feb, [facility] [place] [facility] [address] [id number] [place] [address]- 4913 Feb, [facility] [place] [facility] [address] [id number] [place] [address]- 4104 11 Feb, 2014 [facility] [place] [facility] [address] [id number] [place] [address]- 8736 Feb, [facility] [place] [facility] [address] [id number] [place] [address]- 2191 Feb, [facility] [place] [facility] [address] [id number] [place] [address]- 7165 Feb, [facility] [place] [facility] [address] [id number] [place] [address]- 0085 Feb, [facility] [place] [facility] [address] [id number] [place] [address]- 6535 Feb, [facility] [place] [facility] [address] [id number] [place] [address]- 1866 Dec, [facility] [place] [facility] [address] [id number] [place] [address]- 6500 Dec, [facility] [place] [facility] [address] [id number] [place] [address]- 1761 Dec, [facility] [place] [facility] [address] [id number] [place]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
--- OUTSIDE RECORDS SUMMARY | 2018-06-07 11:56 | XMS REPORT ---
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 [id number] 25 MCG Orally Once a day 1 tablet Results No Known Results Summary Purpose [employer] Submission
--- OUTSIDE RECORDS SUMMARY | 2018-06-07 11:56 | XMS REPORT ---
Author Author ELISEO BENDER Organization [employer] Address Unknown Phone Unavailable Care Team Providers Care News Librarian Name Role Phone ELISEO BENDER CP Unavailable [...] unspecified rheumatoid factor presence M06.9 Active Assessment Low back pain, unspecified back [...]
--- OUTSIDE RECORDS SUMMARY | 2018-06-07 11:56 | XMS REPORT ---
Author Author ELISEO BENDER [facility] Address [address] [place] [address] Care Team Providers Care Director Data Name Role Phone ELISEO BENDER Unavailable PROBLEMS Type Condition ICD9-CM Code FFR15-HA Code Onset Dates Condition Status SNOMED Code Problem Insomnia G47.00 Active 954374609 Problem Chest pain, unspecified type R07.9 Active 55727858 Problem Rheumatoid arthritis, involving unspecified site, unspecified rheumatoid factor presence M06.9 Active 71095598 Problem Other atopic dermatitis L20.89 Active 24646339 Problem Postoperative hypothyroidism E89.0 Active 57229983 Problem Depression, unspecified depression type F32.9 Active 18875853 Problem Anxiety F41.9 Active 99264605 Problem Thyroid cancer C73 Active 533601827 Problem BMI 30.0-30.9,adult Z68.30 Active 495409893 Problem Hyperinsulinemia E16.1 Active 40548762 Problem Gastro-esophageal reflux disease without esophagitis K21.9 Active 093549196 Problem Low back pain, unspecified back pain laterality, with sciatica presence unspecified M54.5 Active 713461848 Problem Other chronic pain G89.29 Active 96625463 Problem Neuropathy G62.9 Active 661624928 Problem Dysthymia F34.1 Active 87760678 ALLERGIES Unknown Allergies SOCIAL HISTORY No smoking [...]
--- OUTSIDE RECORDS SUMMARY | 2018-06-07 11:57 | XMS REPORT ---
Author Author ELISEO BENDER [facility] Address [address] [place] [address] Care Team Providers Care Php Mysql Developer Name Role Phone ELISEO BENDER Unavailable PROBLEMS Type Condition ICD9-CM Code BHI89-CR Code Onset Dates Condition Status SNOMED Code Problem Insomnia G47.00 Active 324474517 Problem Chest pain, unspecified type R07.9 Active 20970032 Problem Rheumatoid arthritis, involving unspecified site, unspecified rheumatoid factor presence M06.9 Active 83111587 Problem Other atopic dermatitis L20.89 Active 12426192 Problem Postoperative hypothyroidism E89.0 Active 47701746 Problem Depression, unspecified depression type F32.9 Active 73420085 Problem Anxiety F41.9 Active 34771251 Problem Thyroid cancer C73 Active 776524345 Problem BMI 30.0-30.9,adult Z68.30 Active 705335089 Problem Hyperinsulinemia E16.1 Active 08123912 Problem Gastro-esophageal reflux disease without esophagitis K21.9 Active 153822818 Problem Low back pain, unspecified back pain laterality, with sciatica presence unspecified M54.5 Active 931561002 Problem Other chronic pain G89.29 Active 06364459 Problem Neuropathy G62.9 Active 515771283 Problem Dysthymia F34.1 Active 92881064 ALLERGIES Substance Reaction Event Type Date Status Penicillin V Potassium anaphylaxis Drug Allergy Sep, Active Klonopin Makes her cry all the time Drug Allergy Sep, Active SOCIAL HISTORY No smoking Hx information available PLAN OF CARE Activity Details Follow Up 3 Months Reason:pain mgmt VITAL SIGNS Height 68 in 2016-09-08 Weight 203.7 lbs 2016-09-08 Temperature 98.5 degrees Fahrenheit 2016-09-08 Heart Rate 80 bpm 2016-09-08 Respiratory Rate 18 2016-09-08 BMI 30.97 kg/m2 2016-09-08 Blood pressure systolic 115 mmHg 2016-09-08 Blood pressure diastolic 70 mmHg 2016-09-08 MEDICATIONS Medication Instructions Dosage Frequency Start Date End Date Duration Status Neurontin 300 MG Orally in AM and noon and 2 at hs 1 capsule Active Tizanidine HCl 4 MG Orally 3 times a day 1 tablet as needed 8h Active Omeprazole 20 MG TAKE 1 CAPSULE EVERY DAY 90 Active Blood Glucose Meter 1 glucometer Verio One Touch Once a day test blood sugar 24h Apr, Active Test strips ... Verio One Touch Once a day as directed 24h Apr, Active Lisinopril 20 MG TAKE 1 TABLET ONE TIME DAILY 90 Active Gelatin 650 MG Orally twice a day 2 capsules 12h Active Alprazolam 0.25 MG Orally 2 times a day 1 tablet 12h 28 days Active Tramadol HCl 50 mg Orally 3 times a day 2 tablet 8h Sep, Sep, 28 days Active Ibuprofen 800 MG Orally 2 times a day 1 tablet 12h Dec, Active Bumetanide 2 MG Orally Once a day 1 tablet 24h 90 Active Celexa 20 mg Orally Once a day 1 tablet 24h 14 Jul, 2014 90 days Active Calcium 600 MG Orally Twice a day 3 tablets with meals 12h Active Levothyroxine Sodium 150 MCG Orally Once a day 1 tablet on an empty stomach in the morning 24h Active Trazodone HCl 100 MG Orally Once a day 1 tablet at bedtime 24h January, 90 days Active Centrum Silver Adult 50+ Orally once a day one 24h Active MetFORMIN HCl ER 500 MG Orally 2 times a day 1 tablet with meals 12h Aug 90 days Active Plaquenil 200 MG Orally Twice a day 1 tablet with food or milk 12h Active Potassium Chloride Marie ER 20 MEQ Orally Once a day 2 tablets 24h 90 days Active RESULTS No Results PROCEDURES Procedure Date Ordered Related Diagnosis Body Site [facility] VISIT ESTABLISHED PATIENT Sep 08, 2016 Office Visit, Est Pt., Level 3 Sep 08, 2016 IMMUNIZATIONS No Known Immunizations
--- OUTSIDE RECORDS SUMMARY | 2018-06-07 11:57 | XMS REPORT ---
Author Author ELISEO BENDER Organization [facility] Address [address] [place] [address] Care Team Providers Care Shuttle Filler Name Role Phone ELISEO BENDER Unavailable PROBLEMS Type Condition ICD9-CM Code SWM76-HQ Code Onset Dates Condition Status SNOMED Code Problem Insomnia G47.00 Active 513659912 Problem Chest pain, unspecified type R07.9 Active 00501837 Problem Rheumatoid arthritis, involving unspecified site, unspecified rheumatoid factor presence M06.9 Active 70017376 Problem BMI 31.0-31.9,adult Z68.31 Active 612272809 Problem Other atopic dermatitis L20.89 Active 42544730 Problem Depression, unspecified depression type F32.9 Active 75401134 Problem Anxiety F41.9 Active 70242798 Problem Thyroid cancer C73 Active 460597103 Problem Postoperative hypothyroidism E89.0 Active 28787906 Problem Hyperinsulinemia E16.1 Active 62757568 Problem Gastro-esophageal reflux disease without esophagitis K21.9 Active 635398484 Problem Low back pain, unspecified back pain laterality, with sciatica presence unspecified M54.5 Active 952287031 Problem Other chronic pain G89.29 Active 93654836 Problem Neuropathy G62.9 Active 478174664 Problem Dysthymia F34.1 Active 84007076 ALLERGIES No Information ENCOUNTERS Encounter Location Date Diagnosis [facility] [id number] [address] Mar, [facility] [address] [place] [address] January, Low back pain, unspecified back pain laterality, with sciatica presence unspecified M54.5 [facility] [id number] [address] 0[address] January, [facility] [id number] [place] [address] 57522- 9186 Dec, Low back pain, unspecified back pain laterality, with sciatica presence unspecified M54.5 [facility] [address] [address]- 2382 Nov, Low back pain, unspecified back pain laterality, with sciatica presence unspecified M54.5 [facility] [address] 50582- 4548 Nov, [place] [facility] [address] 23777- 9847 Nov, Low back pain, unspecified back pain laterality, with sciatica presence unspecified M54.5 ; Other chronic pain G89.29 ; Rheumatoid arthritis, involving unspecified site, unspecified rheumatoid factor presence M06.9 and Dysthymia F34.1 [facility] [facility] [address] 05123- 8239 Oct, Low back pain, unspecified back pain laterality, with sciatica presence unspecified M54.5 [facility] [id number] [place] [address] 55804- 8741 Sep, Low back pain, unspecified back pain laterality, with sciatica presence unspecified M54.5 [facility] [id number] [place] [address] 24165 -0628 Sep, Fever R50.9 and URI, acute J06.9 [facility] [id number] [place] [address] 70024- 4018 Aug, [facility] [id number] [place] [address] 78907- 3266 Aug, Low back pain, unspecified back pain laterality, with sciatica presence unspecified M54.5 [facility] [id number] [place] [address] 75321- 1627 Jul, Low back pain, unspecified back pain laterality, with sciatica presence unspecified M54.5 [facility] [id number] [place] [address] 15736 -2717 15 Jul, 2017 Nausea R11.0 ; Fever and chills R50.9 ; UTI symptoms R39.9 and Hematuria, unspecified type R31.9 [place] [facility] [id number] [place] [address] 74434- 8645 Jul, [place] [address] 28206- 5756 Jun, Low back pain, unspecified back pain laterality, with sciatica presence unspecified M54.5 [place] [facility] [address] 38839- 4240 Jun, BMI 31.0-31.9,adult Z68.31 [facility] [id number] [place] [address] 84478- 3186 Jun, Neuropathy G62.9 [place] [facility] [address] 33087- 2410 Jun, Low back pain, unspecified back pain laterality, with sciatica presence unspecified M54.5 [facility] [id number] [place] [address] 37044- 0592 Jun, Encounter for immunization Z23 [place] [facility] [address] 45326- 0530 Jun, BMI 31.0-31.9,adult Z68.31 [facility] [id number] [place] [address] 18066- 7482 Jun, Low back pain, unspecified back pain laterality, with sciatica presence unspecified M54.5 [facility] [id number] [place] [address] 28023- 1769 May, Low back pain, unspecified back pain laterality, with sciatica presence unspecified M54.5 ; Other chronic pain G89.29 ; Plantar fasciitis M72.2 ; Rheumatoid arthritis, involving unspecified site, unspecified rheumatoid factor presence M06.9 and History of alcohol abuse Z87.898 [place] [id number] [place] [address] 75250- 7384 08 May, 2017 Anxiety F41.9 and Low back pain, unspecified back pain laterality, with sciatica presence unspecified M54.5 [place] [address] 09363- 5617 11 Apr, 2017 Anxiety F41.9 and Low back pain, unspecified back pain laterality, with sciatica presence unspecified M54.5 [place] [address] 85320- 3283 18 Mar, 2017 Acute right-sided low back pain without sciatica M54.5 ; Rash R21 ; Right flank pain R10.9 ; Lipid screening Z13.220 ; Other chronic pain G89.29 ; Hyperinsulinemia E16.1 ; Postoperative hypothyroidism E89.0 and Breast cancer screening Z12.39 [place] [address] 64445- 1202 14 Mar, 2017 Anxiety F41.9 and Low back pain, unspecified back pain laterality, with sciatica presence unspecified M54.5 [place] [address] 91018- 2143 13 Mar, 2017 Acute right-sided low back pain without sciatica M54.5 [place] [address] 14229- 7439 Mar, Anxiety F41.9 [place] [address] 79819- 5516 28 Feb, 2017 Right flank pain R10.9 and Anxiety F41.9 [place] [address] 46477- 2099 16 Feb, 2017 BMI 31.0-31.9,adult Z68.31 [place] [address] 06284- 3313 16 Feb, 2017 Low back pain, unspecified back pain laterality, with sciatica presence unspecified M54.5 and Anxiety F41.9 [facility] [id number] [place] [address] 16040 -7752 January, Abscess of toe of right foot L02.611 and Other atopic dermatitis L20.89 [place] [id number] [place] [address] 41946- 6725 January, Low back pain, unspecified back pain laterality, with sciatica presence unspecified M54.5 and Anxiety F41.9 [place] [address] 01410- 3665 Dec, Anxiety F41.9 and Low back pain, unspecified back pain laterality, with sciatica presence unspecified M54.5 [facility] [id number] [place] [address] 86928 -1757 Dec, Scabies B86 [place] [address] 99163- 7774 Nov, Rash R21 ; Other chronic pain G89.29 ; Hyperinsulinemia E16.1 ; Postoperative hypothyroidism E89.0 ; Breast cancer screening Z12.39 and Lipid screening Z13.220 [place] [address] 972294- 3406 Nov, Anxiety F41.9 and Low back pain, unspecified back pain laterality, with sciatica presence unspecified M54.5 [place] [id number] [place] [address] 25699- 6811 Oct, Anxiety F41.9 and Low back pain, unspecified back pain laterality, with sciatica presence unspecified M54.5 [place] [address] [id number]- 9596 Sep, Anxiety F41.9 and Low back pain, unspecified back pain laterality, with sciatica presence unspecified M54.5 [place] [id number] [place] [address] 90081- 9301 Sep, Anxiety F41.9 [facility] [id number] [place] [address] 74054- 0874 17 Sep, 2016 Gastro-esophageal reflux disease without esophagitis K21.9 [facility] [id number] [place] [address] [id number] Sep, 2016 Dental examination Z01.20 [facility] [id number] [place] [address] 70789- 0189 02 Sep, 2016 Low back pain, unspecified back pain laterality, with sciatica presence unspecified M54.5 and Postoperative hypothyroidism E89.0 [facility] [id number] [place] [address] 96143- 8365 Aug, Anxiety F41.9 [facility] [id number] [place] [address] 68286- 3943 Aug, [facility] [id number] [place] [address] 51003- 0051 Aug, Low back pain, unspecified back pain laterality, with sciatica presence unspecified M54.5 ; Other chronic pain G89.29 ; Thyroid cancer C73 and Postoperative hypothyroidism E89.0 [facility] [id number] [place] [address] 00068- 0254 Jul, [facility] [id number] [place] [address] 58611- 9409 Jul, Anxiety F41.9 [facility] [id number] [place] [address] 36806- 2508 Jul, [facility] [id number] [place] [address] 34563- 5638 18 Jul, 2016 BMI 29.0-29.9,adult Z68.29 [facility] [id number] [place] [address] 06368- 9674 17 Jul, 2016 [facility] [id number] [place] [address] 68336- 7706 08 Jul, 2016 BMI 30.0-30.9,adult Z68.30 [place] [address] 89470- 0214 Jul, Low back pain, unspecified back pain laterality, with sciatica presence unspecified M54.5 and Anxiety F41.9 [place] [address] 77133- 6273 Jun, Hyperinsulinemia E16.1 [place] [address] 22582- 0732 Jun, BMI 30.0-30.9,adult Z68.30 [place] [address] 341091- 6922 14 Jun, 2016 [place] [address] 99323- 7962 Jun, Hyperinsulinemia E16.1 ; Dysthymia F34.1 ; Encounter for immunization Z23 and Other chronic pain G89.29 [place] [address] 17388- 7786 Jun, Low back pain, unspecified back pain laterality, with sciatica presence unspecified M54.5 [place] [address] 51680- 7343 Jun, BMI 30.0-30.9,adult Z68.30 [place] [address] 81646- 2326 Jun, Anxiety F41.9 [place] [address] 58586- 8006 May, Hyperinsulinemia E16.1 [place] [address] 14988- 9007 May, Constipation, unspecified constipation type K59.00 [place] [address] 50614- 0741 May, Low back pain, unspecified back pain laterality, with sciatica presence unspecified M54.5 [place] [address] 60872- 4677 08 May, 2016 [place] [address] 16038- 9466 May, Constipation, unspecified constipation type K59.00 [place] [address] 51650- 7057 May, Anxiety F41.9 [place] [address] 61388- 7164 Apr, BMI 31.0-31.9,adult Z68.31 [place] [address] 02136- 6165 Apr, Thyroid goiter E04.9 [place] [address] 32048- 1733 Apr, [place] [address] 82926- 7473 Apr, Low back pain, unspecified back pain laterality, with sciatica presence unspecified M54.5 [place] [address] 82938- 8828 Apr, [place] [address] 94955- 9172 Apr, Constipation, unspecified constipation type K59.00 ; Thyroid nodule E04.1 ; Family history of colon cancer Z80.0 and Hyperinsulinemia E16.1 [place] [id number] [place] [address] 75341- 5531 Apr, Anxiety F41.9 [place] [address] 31661- 7967 Mar, [place] [address] 44674- 8309 Mar, Low back pain, unspecified back pain laterality, with sciatica presence unspecified M54.5 [place] [id number] [place] [address] 00656- 3140 Mar, BMI 32.0-32.9,adult Z68.32 [place] [id number] [place] [address] 55274- 2511 Feb, Anxiety F41.9 [place] [id number] [place] [address] 88433- 4842 Feb, Depression, unspecified depression type F32.9 [place] [id number] [place] [address] 45736- 0820 Feb, BMI 32.0-32.9,adult Z68.32 [place] [id number] [place] [address] 54716- 9500 Feb, Low back pain, unspecified back pain laterality, with sciatica presence unspecified M54.5 [place] [id number] [place] [address] 05538- 5236 Feb, [place] [id number] [place] [address] 43792- 0999 Feb, BMI 32.0-32.9,adult Z68.32 [place] [id number] [place] [address] 18247- 8126 Feb, Anxiety F41.9 [place] [id number] [place] [address] 12840- 3642 January, BMI 32.0-32.9,adult Z68.32 [place] [id number] [place] [address] 04840- 6939 January, Low back pain, unspecified back pain laterality, with sciatica presence unspecified M54.5 ; Other chronic pain G89.29 ; Weight gain R63.5 and Rheumatoid arthritis, involving unspecified site, unspecified rheumatoid factor presence M06.9 [place] [address] [place] [address] 58190- 1247 January, Low back pain, unspecified back pain laterality, with sciatica presence unspecified M54.5 [facility] [id number] [place] [address] 52279- 4912 January, BMI 32.0-32.9,adult Z68.32 [facility] [address] 97994- 4099 January, BMI 32.0-32.9,adult Z68.32 [facility] [address] 07913- 2173 January, BMI 32.0-32.9,adult Z68.32 [facility] [address] 04384- 5659 Dec, Insomnia G47.00 and Dysthymia F34.1 [facility] [address] 34475- 5971 Dec, [facility] [address] 34244- 9560 Dec, Other chronic pain G89.29 ; Neuropathy G62.9 and Dysthymia F34.1 [facility] [address] 12798- 2235 Dec, [facility] [id number] [place] [address] 99811- 1572 Nov, [facility] [id number] [place] [address] 97044- 8018 Nov, [facility] [address] 85468- 9330 Nov, [facility] [address] 64595- 2145 Oct, [facility] [id number] [place] [address] 99200- 8127 Oct, [facility] [address] 54322- 0821 Oct, Family history of diabetes mellitus Z83.3 [facility] [address] [place] [address] 52541- 9641 Oct, [facility] [id number] [place] [address] 27894- 7488 Sep, [facility] [id number] [place] [address] 67321- 0693 Sep, Eye pain, right H57.11 and Other chronic pain G89.29 [facility] [id number] [place] [address] 24408- 3087 Sep, [place] [id number] [place] [address] 09096- 9589 Sep, [place] [id number] [place] [address] 72940- 2001 Sep, Hyperinsulinemia E16.1 ; Neuropathy G62.9 ; Low back pain, unspecified back pain laterality, with sciatica presence unspecified M54.5 ; Gastro-esophageal reflux disease without esophagitis K21.9 and Encounter for long-term (current) use of other medications V58.69 [place] [id number] [place] [address] 51276- 4579 Sep, [place] [id number] [place] [address] 10626- 6046 Sep, [facility] [id number] [place] [address] 02472- 1758 Sep, [facility] [id number] [place] [address] 80873- 8592 Sep, [facility] [id number] [place] [address] 87858- 2012 Aug, [facility] [id number] [place] [address] 42445- 0806 Aug, Family history of diabetes mellitus Z83.3 [facility] [id number] [place] [address] 08541- 8802 Aug, [facility] [id number] [place] [address] 49733- 3812 Aug, [facility] [id number] [place] [address] 88499- 4022 Aug, Family history of diabetes mellitus Z83.3 [place] [id number] [place] [address] 01560- 6823 Aug, Weight gain R63.5 ; Edema, unspecified R60.9 ; Family history of diabetes mellitus Z83.3 and Gastroesophageal reflux disease with esophagitis K21.0 [place] [id number] [place] [address] 48889- 2426 Aug, [place] [id number] [place] [address] 82755- 3674 Aug, [place] [id number] [place] [address] 39902- 7524 Jul, [facility] [id number] [place] [address] 01673- 0696 Jul, [place] [id number] [place] [address] 24655- 8537 Jul, [place] [id number] [place] [address] 38133- 1545 Jun, [facility] [id number] [place] [address] 18593- 6935 Jun, Nose pain J34.89 ; Encounter for immunization Z23 ; Screening for breast cancer Z12.39 and Encounter for long-term (current) use of other medications V58.69 [facility] [id number] [place] [address] 79468- 6566 Jun, [facility] [id number] [place] [address] 66693- 3598 May, [facility] [address] [place] [address]- 0565 18 May, 2014 [facility] [address] [id number] [place] [address]- 9207 17 May, 2014 [facility] [place] [facility] [address] [id number] [place] [address]- 2379 17 May, 2014 [facility] [address] [id number] [place] [address]- 7816 10 May, 2014 [facility] [place] [facility] [address] [id number] [place] [address]- 8778 May, 2014 [facility] [address] [id number] [place] [address]- 1327 May, [facility] [place] [facility] [address] [facility] [id number] [place] [address]- 1793 Apr, [facility] [address] [facility] [id number] [place] [address]- 7192 Apr, [facility] [address] [id number] [place] [address]- 7724 Apr, [facility] [id number] [place] [address]- 8259 Mar, [facility] [id number] [place] [address]- 2731 Mar, [facility] [address] [facility] [id number] [place] [address]- 4178 Mar, Lesion of left shoulder 709.9 [facility] [place] [facility] [address] [id number] [place] [address]- 1902 Mar, [facility] [place] [facility] [address] [facility] [id number] [place] [address]- 1300 Mar, [facility] [place] [facility] [address] [facility] [id number] [address]- 5452 Mar, [facility] [place] [facility] [address] [facility] [id number] [place] [address] 12552- 4167 Feb, [facility] [address] [address]- 8656 Feb, [facility] [address] [address]- 4441 Feb, Unspecified backache 724.5 ; Weight gain 783.1 ; Hypothyroid 244.9 ; Edema 782.3 and Diaphoresis 780.8 [facility] [address] [address]- 0721 Feb, [facility] [address] [address]- 0105 Feb, [facility] [address] [address]- 0548 Feb, [facility] [id number] [address]- 3955 Feb, [facility] [id number], [place] [address]- 1482 Feb, [facility] [id number] [address]- 2158 January, [facility] [address], [place] [address]- 0156 January, [facility] [id number], [place] [address]- 1178 14 Dec, 2014 [facility] [id number], [place] [address]- 7786 Dec, [facility] [address], [place] [address]- 6509 16 Nov, 2014 [facility] [address], [place] [address]- 1242 Nov, [facility] [address] [address]- 8357 Nov, [facility] [place] [facility] [id number] [place] [address]- 1086 16 Nov, 2014 [facility] [place] [facility] [address] [id number] [place] [address]- [address] 16 Nov, 2014 [facility] [place] [facility] [address] [id number] [place] [address] 16 Nov, 2014 [facility] [place] [facility] [address] [id number] [place] [address] 12 Nov, 2014 [facility] [place] [facility] [address] [id number] [place] [address] 12 Nov, 2014 [facility] [place] [facility] [address] [id number] [place] [address] Nov, [facility] [place] [facility] [address] [id number] [place] [address] Nov, [facility] [place] [facility] [address] [id number] [place] [address] 05 Nov, 2014 [facility] [place] [facility] [address] [id number] [place] [address] 04 Nov, 2014 [facility] [place] [facility] [address] [id number] [place] [address] 04 Nov, 2014 [facility] [place] [facility] [address] [id number] [place] [address] Oct, [facility] [place] [facility] [address] [id number] [place] [address] Oct, [facility] [place] [facility] [address] [id number] [place] [address] Sep, [facility] [place] [facility] [address] [id number] [place] [address] Sep, [facility] [place] [facility] [address] [id number] [place] [address] Aug, [facility] [place] [facility] [address] [id number] [place] [address] Aug, [facility] [place] [facility] [address] [id number] [place] [address] Aug, [facility] [place] [facility] [address] [id number] [place] [address] Aug, [facility] [place] [facility] [address] [id number] [place] [address] Aug, [facility] [place] [facility] [address] [id number] [place] [address] Aug, [facility] [place] [facility] [address] [id number] [place] [address] Aug, [facility] [place] [facility] [address] [id number] [place] [address] Aug, [facility] [place] [facility] [address] [id number] [place] [address]- 1019 Aug, [facility] [place] [facility] [address] [id number] [place] [address] Jul, [facility] [place] [facility] [address] [id number] [place] [address] Jul, [facility] [place] [facility] [address] [id number] [place] [address] Jul, [facility] [place] [facility] [address] [id number] [place] [address] 8511 Jul, [facility] [place] [facility] [address] [id number] [address] Jul, [facility] [place] [facility] [address] [id number] [place] [address]- 1242 Jul, [facility] [place] [facility] [address] [id number] [place] [address] 4513 Jul, [facility] [place] [facility] [address] [id number] [place] [address]- 4238 Jul, [facility] [place] [facility] [address] [id number] [place] [address]- 3918 14 Jul, 2014 [facility] [place] [facility] [address] [id number] [place] [address]- 1002 Jul, [facility] [place] [facility] [address] [id number] [place] [address] 0506 Jun, [facility] [place] [facility] [address] [id number] [place] [address]- 5425 Jun, [facility] [place] [facility] [address] [id number] [place] [address]- 1896 Jun, [facility] [place] [facility] [address] [id number] [place] [address]- 3194 Jun, [facility] [place] [facility] [address] [id number] [place] [address]- 7890 Jun, [facility] [place] [facility] [address] [id number] [place] [address]- 7488 Jun, [facility] [place] [facility] [address] [id number] [place] [address]- 9994 30 May, 2013 [facility] [place] [facility] [address] [id number] [place] [address]- 7594 30 May, 2013 [facility] [place] [facility] [address] [id number] [place] [address]- 2548 29 May, 2013 [facility] [place] [facility] [address] [id number] [place] [address] 2546 29 Sep, 2013 [facility] [place] [facility] [address] [id number] [place] [address]- 2549 24 Sep, 2013 [facility] [place] [facility] [address] [id number] [place] [address] 2546 24 Sep, 2013 [facility] [place] [facility] [address] [id number] [place] [address]- 2547 22 May, 2013 [facility] [place] [facility] [address] [id number] [place] [address]- 2549 22 May, 2014 [facility] [place] [facility] [address] [id number] [place] [address]- 0828 05 May, 2013 [facility] [place] [facility] [address] [id number] [place] [address]- 3796 05 May, 2013 [facility] [place] [facility] [address] [id number] [place] [address]- 8289 May, [facility] [place] [facility] [address] [id number] [place] [address]- 2026 May, [facility] [place] [facility] [address] [id number] [place] [address]- 9055 Apr, [facility] [place] [facility] [address] [id number] [place] [address]- 2111 Apr, [facility] [place] [facility] [address] [id number] [place] [address]- 8608 Apr, [facility] [place] [facility] [address] [id number] [place] [address]- 5533 Apr, [facility] [place] [facility] [address] [id number] [place] [address]- 6711 Apr, [facility] [place] [facility] [address] [id number] [place] [address]- 3432 Apr, [facility] [place] [facility] [address] [id number] [place] [address]- 7368 Apr, [facility] [place] [facility] [address] [id number] [place] [address] 1922 Apr, [facility] [place] [facility] [address] [id number] [place] [address]- 5229 Apr, [facility] [place] [facility] [address] [id number] [place] [address]- 8659 Apr, [facility] [place] [facility] [address] [id number] [place] [address]- 1168 Apr, [facility] [place] [facility] [address] [id number] [place] [address]- 9940 Apr, [facility] [place] [facility] [address] [id number] [place] [address]- 0422 Apr, [facility] [place] [facility] [address] [id number] [place] [address]- 8419 Apr, [facility] [place] [facility] [address] [id number] [place] [address]- 7322 Apr, [facility] [place] [facility] [address] [id number] [place] [address]- 3547 Apr, [facility] [place] [facility] [address] [id number] [place] [address]- 9825 Apr, [facility] [place] [facility] [address] [id number] [place] [address]- 3090 Apr, [facility] [place] [facility] [address] [id number] [place] [address]- 2859 Apr, [facility] [place] [facility] [address] [id number] [place] [address]- 6814 Apr, [facility] [place] [facility] [address] [id number] [place] [address]- 9068 Apr, [facility] [place] [facility] [address] [id number] [place] [address]- 1121 Apr, [facility] [place] [facility] [address] [id number] [place] [address]- 1544 Apr, [facility] [place] [facility] [address] [id number] [place] [address]- 6135 Mar, [facility] [place] [facility] [address] [id number] [place] [address]- 6098 Mar, [facility] [place] [facility] [address] [id number] [place] [address]- 5252 Mar, [facility] [place] [facility] [address] [id number] [place] [address]- 5122 Mar, [facility] [place] [facility] [address] [id number] [place] [address]- 3511 Mar, [facility] [place] [facility] [address] [id number] [place] [address]- 8020 Mar, [facility] [place] [facility] [address] [id number] [place] [address]- 6266 18 Mar, 2014 [facility] [place] [facility] [address] [id number] [place] [address]- 4149 17 Mar, 2014 [facility] [place] [facility] [address] [id number] [place] [address]- 1644 Mar, [facility] [place] [facility] [address] [id number] [place] [address]- 6271 Mar, [facility] [place] [facility] [address] [id number] [place] [address]- 7050 Mar, [facility] [place] [facility] [address] [id number] [place] [address]- 2840 Mar, [facility] [place] [facility] [address] [id number] [place] [address]- 9969 Mar, [facility] [place] [facility] [address] [id number] [place] [address]- 7767 Mar, [facility] [place] [facility] [address] [id number] [place] [address]- 6404 Feb, [facility] [place] [facility] [address] [id number] [place] [address]- 6586 Feb, [facility] [place] [facility] [address] [id number] [place] [address]- 8039 Feb, [facility] [place] [facility] [address] [id number] [place] [address]- 1039 Feb, [facility] [place] [facility] [address] [id number] [place] [address]- 9757 Feb, [facility] [place] [facility] [address] [id number] [place] [address]- 2431 Feb, [facility] [place] [facility] [address] [id number] [place] [address]- 6023 Feb, [facility] [place] [facility] [address] [id number] [place] [address]- 6871 Feb, [facility] [place] [facility] [address] [id number] [place] [address]- 0158 Dec, [facility] [place] [facility] [address] [id number] [place] [address]- 0176 Dec, [facility] [place] [facility] [address] [id number] [place]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
--- OUTSIDE RECORDS SUMMARY | 2018-06-07 11:58 | XMS REPORT ---
Author Author ELISEO BENDER Organization [employer] Address Unknown Phone Unavailable Care Team Providers Care Filter Changing Technician Name Role Phone ELISEO BENDER CP Unavailable [...]
--- OUTSIDE RECORDS SUMMARY | 2018-06-07 11:58 | XMS REPORT ---
Author Author ELISEO BENDER Organization [employer] Address Unknown Phone Unavailable Care Team Providers Care Neurology Stroke Physician Name Role Phone ELISEO BENDER CP Unavailable Allergies No Known Allergies Problems Problem Type Condition Code Onset Dates Condition Status Problem Unspecified backache 724.5 Active Problem Restless legs syndrome [RLS] 333.94 Active Problem Special screening for malignant neoplasms, colon V76.51 Active Problem Lump or mass in breast 611.72 Active Problem Other malaise and fatigue 780.79 Active Problem Unspecified breast screening V76.10 Active Assessment Family history of diabetes mellitus Z83.3 Active Problem Hypertrophy of uterus 621.2 Active [...] Instructions Start Date End Date Status Dosage MetFORMIN HCl ER [facility] [address]-22 500 MG Orally Once a day at HS x 7 days then 1 tab BID Aug 27, 2015 1 tablet with evening meal Results No Known Results Summary Purpose [employer] Submission
--- OUTSIDE RECORDS SUMMARY | 2018-06-07 11:58 | XMS REPORT ---
Author Author ELISEO BENDER Organization [facility] Address [address] [place] [address] Care Team Providers Care Application Dba Name Role Phone ELISEO BENDER Unavailable PROBLEMS Type Condition ICD9-CM Code APB03-PE Code Onset Dates Condition Status SNOMED Code Problem Insomnia G47.00 Active 939171935 Problem Chest pain, unspecified type R07.9 Active 28551229 Problem Rheumatoid arthritis, involving unspecified site, unspecified rheumatoid factor presence M06.9 Active 57259388 Problem BMI 31.0-31.9,adult Z68.31 Active 980878441 Problem Other atopic dermatitis L20.89 Active 95196837 Problem Depression, unspecified depression type F32.9 Active 54202192 Problem Anxiety F41.9 Active 17703909 Problem Thyroid cancer C73 Active 999657426 Problem Postoperative hypothyroidism E89.0 Active 11004306 Problem Hyperinsulinemia E16.1 Active 93894920 Problem Gastro-esophageal reflux disease without esophagitis K21.9 Active 573345131 Problem Low back pain, unspecified back pain laterality, with sciatica presence unspecified M54.5 Active 670102617 Problem Other chronic pain G89.29 Active 51076384 Problem Neuropathy G62.9 Active 271969827 Problem Dysthymia F34.1 Active 55696302 ALLERGIES No Information ENCOUNTERS Encounter Location Date Diagnosis [facility] [id number], [place] [address] Dec, [facility] [id number], [place] [address] Nov, Low back pain, unspecified back pain laterality, with sciatica presence unspecified M54.5 [facility] [id number], [place] [address] Nov, [facility] [id number] [place] [address] 69138- 2998 Nov, Low back pain, unspecified back pain laterality, with sciatica presence unspecified M54.5 ; Other chronic pain G89.29 ; Rheumatoid arthritis, involving unspecified site, unspecified rheumatoid factor presence M06.9 and Dysthymia F34.1 [place] [address] [address]- [address] Oct, Low back pain, unspecified back pain laterality, with sciatica presence unspecified M54.5 [place] [address] 36348- 9693 Sep, Low back pain, unspecified back pain laterality, with sciatica presence unspecified M54.5 [facility] [id number] [place] [address] 73515 -9282 Sep, Fever R50.9 and URI, acute J06.9 [place] [address] 53686- 7563 Aug, [place] [address] 58588- 9059 Aug, Low back pain, unspecified back pain laterality, with sciatica presence unspecified M54.5 [place] [id number] [place] [address] 06238- 0394 Jul, Low back pain, unspecified back pain laterality, with sciatica presence unspecified M54.5 [facility] [id number] [place] [address] 13103 -5032 15 Jul, 2017 Nausea R11.0 ; Fever and chills R50.9 ; UTI symptoms R39.9 and Hematuria, unspecified type R31.9 [place] [id number] [place] [address] 12839- 5392 02 Jul, 2017 [place] [address] 69432- 3268 Jun, Low back pain, unspecified back pain laterality, with sciatica presence unspecified M54.5 [place] [id number] [place] [address] 04860- 3249 Jun, BMI 31.0-31.9,adult Z68.31 [facility] [id number] [place] [address] 92720- 3314 Jun, Neuropathy G62.9 [place] [address] 737512- 3429 Jun, Low back pain, unspecified back pain laterality, with sciatica presence unspecified M54.5 [place] [id number] [place] [address] 33017- 9424 Jun, Encounter for immunization Z23 [place] [id number] [place] [address] 23724- 7083 Jun, BMI 31.0-31.9,adult Z68.31 [place] [id number] [place] [address] 70165- 9778 Jun, Low back pain, unspecified back pain laterality, with sciatica presence unspecified M54.5 [place] [id number] [place] [address] 03556- 3219 May, Low back pain, unspecified back pain laterality, with sciatica presence unspecified M54.5 ; Other chronic pain G89.29 ; Plantar fasciitis M72.2 ; Rheumatoid arthritis, involving unspecified site, unspecified rheumatoid factor presence M06.9 and History of alcohol abuse Z87.898 [place] [id number] [place] [address] 61694- 0144 May, Anxiety F41.9 and Low back pain, unspecified back pain laterality, with sciatica presence unspecified M54.5 [place] [id number] [place] [address] 34616- 4743 Apr, Anxiety F41.9 and Low back pain, unspecified back pain laterality, with sciatica presence unspecified M54.5 [place] [address] 50365- 2657 18 Mar, 2017 Acute right-sided low back pain without sciatica M54.5 ; Rash R21 ; Right flank pain R10.9 ; Lipid screening Z13.220 ; Other chronic pain G89.29 ; Hyperinsulinemia E16.1 ; Postoperative hypothyroidism E89.0 and Breast cancer screening Z12.39 [place] [address] 41652- 3930 14 Mar, 2017 Anxiety F41.9 and Low back pain, unspecified back pain laterality, with sciatica presence unspecified M54.5 [place] [address] 02778- 8621 13 Mar, 2017 Acute right-sided low back pain without sciatica M54.5 [place] [address] 62489- 6672 07 Mar, 2017 Anxiety F41.9 [place] [address] 17275- 9509 28 Feb, 2017 Right flank pain R10.9 and Anxiety F41.9 [place] [address] 36857- 8100 16 Feb, 2017 BMI 31.0-31.9,adult Z68.31 [place] [address] 50590- 7961 Feb, Low back pain, unspecified back pain laterality, with sciatica presence unspecified M54.5 and Anxiety F41.9 [facility] [id number] [place] [address] 40216 -0833 January, Abscess of toe of right foot L02.611 and Other atopic dermatitis L20.89 [place] [address] 77232- 8051 January, Low back pain, unspecified back pain laterality, with sciatica presence unspecified M54.5 and Anxiety F41.9 [place] [address] [id number]- [address]879 Dec, Anxiety F41.9 and Low back pain, unspecified back pain laterality, with sciatica presence unspecified M54.5 [facility] [address] [id number] Dec, Scabies B86 [facility] [address] [address] 3799 Nov, Rash R21 ; Other chronic pain G89.29 ; Hyperinsulinemia E16.1 ; Postoperative hypothyroidism E89.0 ; Breast cancer screening Z12.39 and Lipid screening Z13.220 [place] [address] 6598 Nov, Anxiety F41.9 and Low back pain, unspecified back pain laterality, with sciatica presence unspecified M54.5 [place] [address] 60315- 2833 Oct, Anxiety F41.9 and Low back pain, unspecified back pain laterality, with sciatica presence unspecified M54.5 [place] [address] 87798- 2285 Sep, Anxiety F41.9 and Low back pain, unspecified back pain laterality, with sciatica presence unspecified M54.5 [facility] [address] 83862- 1661 Sep, Anxiety F41.9 [facility] [address] 64027- 1415 Sep, Gastro-esophageal reflux disease without esophagitis K21.9 [facility] [address] [id number] Sep, Dental examination Z01.20 [facility] [address] 87415- 2574 Sep, Low back pain, unspecified back pain laterality, with sciatica presence unspecified M54.5 and Postoperative hypothyroidism E89.0 [facility] [id number] [place] [address] 95333- 4570 Aug, Anxiety F41.9 [facility] [address] 35107- 4253 Aug, [facility] [address] 98471- 5264 Aug, Low back pain, unspecified back pain laterality, with sciatica presence unspecified M54.5 ; Other chronic pain G89.29 ; Thyroid cancer C73 and Postoperative hypothyroidism E89.0 [facility] [address] 12589- 0005 Jul, [facility] [address] 78726- 2942 Jul, Anxiety F41.9 [place] [address] 48825- 6663 Jul, [facility] [address] 73433- 5239 Jul, BMI 29.0-29.9,adult Z68.29 [place] [id number] [place] [address] 44236- 8944 Jul, [facility] [id number] [place] [address] 05316- 6255 Jul, BMI 30.0-30.9,adult Z68.30 [facility] [id number] [place] [address] 99151- 4075 Jul, Low back pain, unspecified back pain laterality, with sciatica presence unspecified M54.5 and Anxiety F41.9 [facility] [id number] [place] [address] 39935- 3260 Jun, Hyperinsulinemia E16.1 [facility] [id number] [place] [address] 11682- 7799 Jun, BMI 30.0-30.9,adult Z68.30 [place] [address] 53857- 1395 14 Jun, 2016 [place] [address] 791014- 5155 10 Jun, 2016 Hyperinsulinemia E16.1 ; Dysthymia F34.1 ; Encounter for immunization Z23 and Other chronic pain G89.29 [place] [address] 42640- 7883 Jun, Low back pain, unspecified back pain laterality, with sciatica presence unspecified M54.5 [place] [address] 63536- 6792 Jun, BMI 30.0-30.9,adult Z68.30 [place] [address] 36183- 6452 Jun, Anxiety F41.9 [place] [address] 08624- 3053 May, Hyperinsulinemia E16.1 [place] [address] 49007- 0032 May, Constipation, unspecified constipation type K59.00 [place] [address] 68914- 9387 08 May, 2016 Low back pain, unspecified back pain laterality, with sciatica presence unspecified M54.5 [place] [address] 16781- 0273 May, [place] [address] 34074- 9998 May, Constipation, unspecified constipation type K59.00 [facility] [address] 15493- 3491 May, Anxiety F41.9 [place] [address] 77079- 3497 Apr, BMI 31.0-31.9,adult Z68.31 [facility] [id number] [place] [address] 07324- 0223 Apr, Thyroid goiter E04.9 [facility] [id number] [place] [address] 37219- 4203 Apr, [facility] [address] 48911- 7764 Apr, Low back pain, unspecified back pain laterality, with sciatica presence unspecified M54.5 [place] [address] 52206- 9148 Apr, [place] [address] 50807- 2320 Apr, Constipation, unspecified constipation type K59.00 ; Thyroid nodule E04.1 ; Family history of colon cancer Z80.0 and Hyperinsulinemia E16.1 [place] [id number] [place] [address] 97708- 2996 Apr, Anxiety F41.9 [place] [address] 12214- 8010 Mar, [place] [id number] [place] [address] 32038- 6013 Mar, Low back pain, unspecified back pain laterality, with sciatica presence unspecified M54.5 [place] [id number] [place] [address] 43268- 1832 Mar, BMI 32.0-32.9,adult Z68.32 [place] [address] 77134- 2557 Feb, Anxiety F41.9 [place] [id number] [place] [address] 93170- 4366 Feb, Depression, unspecified depression type F32.9 [place] [address] [place] [address]- 1144 30 Feb, 2016 BMI 32.0-32.9,adult Z68.32 [place] [id number] [place] [address] 59054- 1167 16 Feb, 2016 Low back pain, unspecified back pain laterality, with sciatica presence unspecified M54.5 [place] [id number] [place] [address] 59147- 6644 14 Feb, 2016 [place] [id number] [place] [address] 63920- 6457 Feb, BMI 32.0-32.9,adult Z68.32 [place] [id number] [place] [address] 03132- 3214 Feb, Anxiety F41.9 [place] [id number] [place] [address] 58589- 1161 January, BMI 32.0-32.9,adult Z68.32 [place] [id number] [place] [address] 76367- 1393 January, Low back pain, unspecified back pain laterality, with sciatica presence unspecified M54.5 ; Other chronic pain G89.29 ; Weight gain R63.5 and Rheumatoid arthritis, involving unspecified site, unspecified rheumatoid factor presence M06.9 [place] [id number] [place] [address] 45375- 2760 January, Low back pain, unspecified back pain laterality, with sciatica presence unspecified M54.5 [place] [id number] [place] [address] 49291- 8189 January, BMI 32.0-32.9,adult Z68.32 [place] [id number] [place] [address] 43914- 3614 January, BMI 32.0-32.9,adult Z68.32 [place] [id number] [place] [address] 87925- 0752 January, BMI 32.0-32.9,adult Z68.32 [facility] [id number] [place] [address] 18231- 3194 Dec, Insomnia G47.00 and Dysthymia F34.1 [facility] [id number] [place] [address] 07614- 3715 Dec, [facility] [address] 07644- 8465 Dec, Other chronic pain G89.29 ; Neuropathy G62.9 and Dysthymia F34.1 [facility] [address] 91339- 6101 Dec, [facility] [id number] [place] [address] 78554- 3767 Nov, [facility] [address] 90417- 6238 Nov, [facility] [id number] [place] [address] 85659- 9522 Nov, [facility] [address] 85200- 5995 Oct, [facility] [id number] [place] [address] 66994- 8678 Oct, [facility] [id number] [place] [address] 30499- 6337 Oct, Family history of diabetes mellitus Z83.3 [facility] [id number] [place] [address] 07183- 9782 Oct, [facility] [id number] [place] [address] 23340- 0005 Sep, [facility] [id number] [place] [address] 55293- 6960 Sep, Eye pain, right H57.11 and Other chronic pain G89.29 [facility] [id number] [place] [address] 69799- 0680 Sep, [facility] [id number] [place] [address] 22095- 6289 Sep, [facility] [id number] [place] [address] 92646- 2545 Sep, Hyperinsulinemia E16.1 ; Neuropathy G62.9 ; Low back pain, unspecified back pain laterality, with sciatica presence unspecified M54.5 ; Gastro-esophageal reflux disease without esophagitis K21.9 and Encounter for long-term (current) use of other medications V58.69 [place] [id number] [place] [address] 44320- 1022 Sep, [place] [id number] [place] [address] 14784- 8342 Sep, [place] [id number] [place] [address] 43832- 9283 Sep, [facility] [id number] [place] [address] 92699- 9519 Sep, [facility] [id number] [place] [address] 00278- 2178 Aug, [facility] [address] [place] [address] 12207- 4889 Aug, Family history of diabetes mellitus Z83.3 [facility] [id number] [place] [address] 78424- 1142 Aug, [facility] [id number] [place] [address] 86104- 4853 Aug, [facility] [id number] [place] [address] 94973- 5384 16 Aug, 2015 Family history of diabetes mellitus Z83.3 [facility] [address] [place] [address] 65035- 9937 14 Aug, 2015 Weight gain R63.5 ; Edema, unspecified R60.9 ; Family history of diabetes mellitus Z83.3 and Gastroesophageal reflux disease with esophagitis K21.0 [facility] [id number] [place] [address] 90565- 7883 14 Aug, 2015 [facility] [id number] [place] [address] 71977- 9947 Aug, [facility] [id number] [place] [address] 55282- 3811 Jul, [facility] [id number] [place] [address] 40429- 9866 Jul, [facility] [address] 86886- 2927 Jul, [facility] [id number] [place] [address] 58358- 6834 Jun, [facility] [id number] [place] [address] 88803- 2527 Jun, Nose pain J34.89 ; Encounter for immunization Z23 ; Screening for breast cancer Z12.39 and Encounter for long-term (current) use of other medications V58.69 [facility] [id number] [place] [address] 19575- 6178 Jun, [facility] [id number] [place] [address]- 2390 23 May, 2015 [facility] [id number] [place] [address] 18384- 4183 18 May, 2015 [facility] [id number] [place] [address] 00814- 6369 17 May, 2015 [facility] [id number] [place] [address] 63142- 2169 17 May, 2015 [facility] [id number] [place] [address] 51017- 1908 10 May, 2015 [facility] [id number] [place] [address] 11376- 6476 May, [facility] [id number] [place] [address]- 4420 May, [facility] [id number] [place] [address]- 8370 Apr, [facility] [id number] [place] [address]- 9244 Apr, [facility] [id number] [place] [address] 11939- 7851 Apr, [facility] [id number] [place] [address] 79253- 9692 Mar, [facility] [id number] [place] [address] 40408- 8199 Mar, [facility] [id number] [place] [address] 43440- 3801 Mar, Lesion of left shoulder 709.9 [facility] [id number] [place] [address]- 7378 Mar, [facility] [id number] [place] [address] 93463- 9737 Mar, [facility] [id number], [place] [address]- 4236 Mar, [facility] [id number] [place] [address]- 9356 Feb, [facility] [id number] [place] [address]- 6598 Feb, [facility] [id number] [place] [address] Feb, Unspecified backache 724.5 ; Weight gain 783.1 ; Hypothyroid 244.9 ; Edema 782.3 and Diaphoresis 780.8 [facility] [id number], [place] [address] Feb, [facility] [place] [facility] [address] [id number] [place] [address] 10 Feb, 2015 [facility] [place] [facility] [address] [id number] [place] [address] 09 Feb, 2015 [facility] [place] [facility] [address] [id number] [place] [address] 04 Feb, 2015 [facility] [place] [facility] [address] [id number] [place] [address] Feb, [facility] [place] [facility] [address] [id number] [place] [address] January, [facility] [place] [facility] [address] [id number] [place] [address] January, [facility] [place] [facility] [address] [id number] [place] [address] 14 Dec, 2014 [facility] [place] [facility] [address] [id number] [place] [address] Dec, [facility] [place] [facility] [address] [id number] [place] [address] 16 Nov, 2014 [facility] [place] [facility] [address] [id number] [place] [address] 16 Nov, 2014 [facility] [place] [facility] [address] [id number] [place] [address] 16 Nov, 2014 [facility] [place] [facility] [address] [id number] [place] [address] 16 Nov, 2014 [facility] [place] [facility] [address] [id number] [place] [address] 16 Nov, 2014 [facility] [place] [facility] [address] [id number] [place] [address] 16 Nov, 2014 [facility] [place] [facility] [address] [id number] [place] [address] 12 Nov, 2014 [facility] [place] [facility] [address] [id number] [place] [address] Nov, [facility] [place] [facility] [address] [id number] [place] [address] Nov, [facility] [place] [facility] [address] [id number] [place] [address] Nov, [facility] [place] [facility] [address] [id number] [place] [address] Nov, [facility] [place] [facility] [address] [id number] [place] [address] Nov, [facility] [place] [facility] [address] [id number] [place] [address] Nov, [facility] [place] [facility] [address] [id number] [place] [address] Oct, [facility] [place] [facility] [address] [id number] [place] [address] Oct, [facility] [place] [facility] [address] [id number] [place] [address] Sep, [facility] [place] [facility] [address] [id number] [place] [address] Sep, [facility] [place] [facility] [address] [id number] [place] [address] Aug, [facility] [place] [facility] [address] [id number] [place] [address] Aug, [facility] [place] [facility] [address] [id number] [place] [address]307 Aug, [facility] [place] [facility] [address] [id number] [place] [address] Aug, [facility] [place] [facility] [address] [id number] [place] [address] Aug, [facility] [place] [facility] [address] [id number] [place] [address] 9383 Aug, [facility] [place] [facility] [address] [id number] [place] [address]- 9605 Aug, [facility] [place] [facility] [address] [id number] [place] [address] 3374 Aug, [facility] [place] [facility] [address] [id number] [place] [address] 8381 Aug, [facility] [place] [facility] [address] [id number] [place] [address] 2375 Jul, [facility] [place] [facility] [address] [id number] [place] [address] 8573 Jul, [facility] [place] [facility] [address] [id number] [place] [address] 5703 Jul, [facility] [place] [facility] [address] [id number] [place] [address]- 0895 Jul, [facility] [place] [facility] [address] [id number] [place] [address] 7891 Jul, [facility] [place] [facility] [address] [id number] [place] [address] 7107 Jul, [facility] [place] [facility] [address] [id number] [place] [address]- 6914 Jul, [facility] [place] [facility] [address] [id number] [place] [address]- 5851 Jul, [facility] [place] [facility] [address] [id number] [place] [address]- 9956 Jul, [facility] [place] [facility] [address] [id number] [place] [address]- 6403 Jul, [facility] [place] [facility] [address] [id number] [place] [address]- 3788 Jun, [facility] [place] [facility] [address] [id number] [place] [address]- 6001 Jun, [facility] [place] [facility] [address] [id number], [place] [address] 9[address] Jun, [facility] [place] [facility] [address] [id number] [place] [address]- 9741 Jun, [facility] [place] [facility] [address] [id number] [place] [address]- 6579 Jun, [facility] [place] [facility] [address] [id number] [place] [address]- 3558 Jun, [facility] [place] [facility] [address] [id number] [place] [address]- 9831 30 May, 2013 [facility] [place] [facility] [address] [id number] [place] [address]- 0497 30 May, 2013 [facility] [place] [facility] [address] [id number] [place] [address]- 3943 29 May, 2013 [facility] [place] [facility] [address] [id number] [place] [address]- 5695 29 May, 2013 [facility] [place] [facility] [address] [id number] [place] [address]- 5372 24 May, 2013 [facility] [place] [facility] [address] [id number] [place] [address]- 2869 24 May, 2013 [facility] [place] [facility] [address] [id number] [place] [address]- 1718 22 May, 2013 [facility] [place] [facility] [address] [id number], [place] [address]- 1009 May, 2013 [facility] [place] [facility] [address] [id number], [place] [address]- 2543 05 Sep, 2013 [facility] [place] [facility] [address] [id number] [place] [address]- 254 05 Sep, 2013 [facility] [place] [facility] [address] [id number] [place] [address]- 4876 May, 2013 [facility] [place] [facility] [address] [id number] [place] [address]- 2545 02 May, 2013 [facility] [place] [facility] [address] [id number] [place] [address]- 6719 Apr, [facility] [place] [facility] [address] [id number] [place] [address]- 0412 Apr, [facility] [place] [facility] [address] [id number] [place] [address]- 8767 Apr, [facility] [place] [facility] [address] [id number] [place] [address]- 3668 Apr, [facility] [place] [facility] [address] [id number] [place] [address]- 0792 Apr, [facility] [place] [facility] [address] [id number] [place] [address]- 6985 Apr, [facility] [place] [facility] [address] [id number] [place] [address]- 1498 Apr, [facility] [place] [facility] [address] [id number] [place] [address]- 0241 Apr, [facility] [place] [facility] [address] [id number] [place] [address]- 6978 Apr, [facility] [place] [facility] [address] [id number] [place] [address]- 7042 Apr, [facility] [place] [facility] [address] [id number] [place] [address]- 2358 Apr, [facility] [place] [facility] [address] [id number] [place] [address]- 9015 Apr, [facility] [place] [facility] [address] [id number] [place] [address]- 1625 Apr, [facility] [place] [facility] [address] [id number] [place] [address]- 4771 Apr, [facility] [place] [facility] [address] [id number] [place] [address]- 8446 Apr, [facility] [place] [facility] [address] [id number] [place] [address]- 1739 Apr, [facility] [place] [facility] [address] [id number] [place] [address]- 7982 Apr, [facility] [place] [facility] [address] [id number] [place] [address]- 6785 Apr, [facility] [place] [facility] [address] [id number] [place] [address]- 6533 Apr, [facility] [place] [facility] [address] [id number] [place] [address]- 7052 Apr, [facility] [place] [facility] [address] [id number] [place] [address]- 2199 Apr, [facility] [place] [facility] [address] [id number] [place] [address]- 3676 Apr, [facility] [place] [facility] [address] [id number] [place] [address]- 5218 Apr, [facility] [place] [facility] [address] [id number] [place] [address]- 2150 Mar, [facility] [place] [facility] [address] [id number] [place] [address]- 8156 Mar, [facility] [place] [facility] [address] [id number] [place] [address]- 4932 Mar, [facility] [place] [facility] [address] [id number] [place] [address]- 8767 Mar, [facility] [place] [facility] [address] [id number] [place] [address]- 0429 Mar, [facility] [place] [facility] [address] [id number] [place] [address]- 2101 Mar, [facility] [place] [facility] [address] [id number] [place] [address]- 0013 Mar, [facility] [place] [facility] [address] [id number] [place] [address]- 8434 Mar, [facility] [place] [facility] [address] [id number] [place] [address]- 1624 Mar, [facility] [place] [facility] [address] [id number] [place] [address]- 2800 Mar, [facility] [place] [facility] [address] [id number] [place] [address]- 5075 Mar, [facility] [place] [facility] [address] [id number] [place] [address]- 1036 Mar, [facility] [place] [facility] [address] [id number] [place] [address]- 2272 Mar, [facility] [place] [facility] [address] [id number] [place] [address]- 3260 Mar, [facility] [place] [facility] [address] [id number] [place] [address]- 5947 Feb, [facility] [place] [facility] [address] [id number] [place] [address]- 8878 Feb, [facility] [place] [facility] [address] [id number] [place] [address]- 4659 Feb, [facility] [place] [facility] [address] [id number] [place] [address]- 2397 Feb, [facility] [place] [facility] [address] [id number] [place] [address]- 6874 Feb, [facility] [place] [facility] [address] [id number] [place] [address]- 4864 Feb, [facility] [place] [facility] [address] [id number] [place] [address]- 3575 Feb, [facility] [place] [facility] [address] [id number] [place] [address]- 1211 Feb, [facility] [place] [facility] [address] [id number] [place] [address]- 2760 Dec, [facility] [place] [facility] [address] [id number] [place] [address]- 7923 Dec, [facility] [place] [facility] [address] [id number] [place] [address]- 5335 Dec, [facility] [place] [facility] [address] [id number] [place] [address]- 4535 Dec, [facility] [place] [facility] [address] [id number] [place] [address]- 7946 Nov, [facility] [place] [facility] [address] [id number] [place] [address]- 2741 Nov, [facility] [place] [facility] [address] [id number] [place]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
--- OUTSIDE RECORDS SUMMARY | 2018-06-07 11:58 | XMS REPORT ---
Author Author ELISEO BENDER Organization [employer] Address Unknown Phone Unavailable Care Team Providers Care Training Development Specialist Name Role Phone ELISEO BENDER CP Unavailable [...] presence M06.9 Active Assessment Anxiety F41.9 Active Problem Unspecified hereditary and idiopathic peripheral neuropathy 356.9 Active Problem Unspecified backache 724.5 Active Problem Other malaise and fatigue 780.79 Active Problem Gastro-esophageal reflux disease without esophagitis K21.9 Active Problem Rheumatoid arthritis 714.0 Active Problem Low back pain, unspecified back pain laterality, with sciatica presence unspecified M54.5 Active Medications Medication Code System Code Instructions Start Date End Date Status Dosage Alprazolam [facility] [address]-54 0.25 MG Orally 2 times a day 1 tablet Results No Known Results Summary Purpose [employer] Submission
--- OUTSIDE RECORDS SUMMARY | 2018-06-07 11:58 | XMS REPORT ---
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
--- OUTSIDE RECORDS SUMMARY | 2018-06-07 11:59 | XMS REPORT ---
Author Author ELISEO BENDER Organization [employer] Address Unknown Phone Unavailable Care Team Providers Care Fiction And Nonfiction Author Name Role Phone ELISEO BENDER CP Unavailable [...] Start Date End Date Status Dosage Xanax [facility] [address]-47 0.25 MG November 15, 2014 1 tablet by Oral route 2 times per day PRN anxiety Results No Known Results Summary Purpose [employer] Submission
--- OUTSIDE RECORDS SUMMARY | 2018-06-07 11:59 | XMS REPORT ---
Author Author JARET OZUNA [employer] Address Unknown Phone Unavailable Care Team Providers Care Hardwood Floor Installer Name Role Phone JARET OZUNA CP Unavailable [...] unspecified rheumatoid factor presence M06.9 Active Problem Unspecified hereditary and idiopathic peripheral neuropathy 356.9 Active Problem Unspecified backache 724.5 Active Problem Other malaise and fatigue 780.79 Active Problem Gastro-esophageal reflux disease without esophagitis K21.9 Active Problem Rheumatoid arthritis 714.0 Active Problem Low back pain, unspecified back pain laterality, with sciatica presence unspecified M54.5 Active Medications No Known Medications Results No Known Results Summary Purpose [employer] Submission
--- OUTSIDE RECORDS SUMMARY | 2018-06-07 12:00 | XMS REPORT ---
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 Name Role Phone ELISEO BENDER Unavailable PROBLEMS Type Condition ICD9-CM Code WPA79-CM Code Onset Dates Condition Status SNOMED Code Problem Insomnia G47.00 Active 063758280 Problem Chest pain, unspecified type R07.9 Active 45011188 Problem Rheumatoid arthritis, involving unspecified site, unspecified rheumatoid factor presence M06.9 Active 08750593 Problem BMI 31.0-31.9,adult Z68.31 Active 188943381 Problem Other atopic dermatitis L20.89 Active 98107870 Problem Depression, unspecified depression type F32.9 Active 03271279 Problem Anxiety F41.9 Active 25892810 Problem Thyroid cancer C73 Active 563222300 Problem Postoperative hypothyroidism E89.0 Active 22556610 Problem Hyperinsulinemia E16.1 Active 01503542 Problem Gastro-esophageal reflux disease without esophagitis K21.9 Active 447462115 Problem Low back pain, unspecified back pain laterality, with sciatica presence unspecified M54.5 Active 917538825 Problem Other chronic pain G89.29 Active 38123859 Problem Neuropathy G62.9 Active 826999466 Problem Dysthymia F34.1 Active 28576579 ALLERGIES No Information ENCOUNTERS Encounter Location Date Diagnosis [facility] [id number] [address] Dec, [facility] [address] [place] [address] Nov, Low back pain, unspecified back pain laterality, with sciatica presence unspecified M54.5 [facility] [id number], [place] [address] Nov, [facility] [id number] [place] [address]41- 1946 Nov, Low back pain, unspecified back pain laterality, with sciatica presence unspecified M54.5 ; Other chronic pain G89.29 ; Rheumatoid arthritis, involving unspecified site, unspecified rheumatoid factor presence M06.9 and Dysthymia F34.1 [place] [address] [address]78- 68[address] Oct, Low back pain, unspecified back pain laterality, with sciatica presence unspecified M54.5 [place] [address] 30396- 7973 Sep, Low back pain, unspecified back pain laterality, with sciatica presence unspecified M54.5 [facility] [id number] [place] [address] 88350 -8373 Sep, Fever R50.9 and URI, acute J06.9 [place] [address] 48969- 3569 Aug, [place] [address] 54600- 6830 Aug, Low back pain, unspecified back pain laterality, with sciatica presence unspecified M54.5 [place] [id number] [place] [address] 17043- 0229 Jul, Low back pain, unspecified back pain laterality, with sciatica presence unspecified M54.5 [facility] [id number] [place] [address] 42566 -4362 15 Jul, 2017 Nausea R11.0 ; Fever and chills R50.9 ; UTI symptoms R39.9 and Hematuria, unspecified type R31.9 [place] [id number] [place] [address] 52634- 0433 02 Jul, 2017 [place] [address] 92566- 1508 Jun, Low back pain, unspecified back pain laterality, with sciatica presence unspecified M54.5 [place] [id number] [place] [address] 11025- 2693 Jun, BMI 31.0-31.9,adult Z68.31 [facility] [id number] [place] [address] 77608- 6712 Jun, Neuropathy G62.9 [place] [address] 088114- 4582 Jun, Low back pain, unspecified back pain laterality, with sciatica presence unspecified M54.5 [place] [id number] [place] [address] 70172- 6386 Jun, Encounter for immunization Z23 [place] [id number] [place] [address] 36653- 4000 Jun, BMI 31.0-31.9,adult Z68.31 [place] [id number] [place] [address] 40627- 4638 Jun, Low back pain, unspecified back pain laterality, with sciatica presence unspecified M54.5 [place] [id number] [place] [address] 24673- 8662 May, Low back pain, unspecified back pain laterality, with sciatica presence unspecified M54.5 ; Other chronic pain G89.29 ; Plantar fasciitis M72.2 ; Rheumatoid arthritis, involving unspecified site, unspecified rheumatoid factor presence M06.9 and History of alcohol abuse Z87.898 [place] [id number] [place] [address] 09534- 5454 May, Anxiety F41.9 and Low back pain, unspecified back pain laterality, with sciatica presence unspecified M54.5 [place] [id number] [place] [address] 77486- 9066 Apr, Anxiety F41.9 and Low back pain, unspecified back pain laterality, with sciatica presence unspecified M54.5 [place] [address] 53234- 0381 18 Mar, 2017 Acute right-sided low back pain without sciatica M54.5 ; Rash R21 ; Right flank pain R10.9 ; Lipid screening Z13.220 ; Other chronic pain G89.29 ; Hyperinsulinemia E16.1 ; Postoperative hypothyroidism E89.0 and Breast cancer screening Z12.39 [place] [address] 47233- 0568 14 Mar, 2017 Anxiety F41.9 and Low back pain, unspecified back pain laterality, with sciatica presence unspecified M54.5 [place] [address] 71779- 3628 13 Mar, 2017 Acute right-sided low back pain without sciatica M54.5 [place] [address] 73807- 6131 07 Mar, 2017 Anxiety F41.9 [place] [address] 21906- 9077 28 Feb, 2017 Right flank pain R10.9 and Anxiety F41.9 [place] [address] 94870- 7311 16 Feb, 2017 BMI 31.0-31.9,adult Z68.31 [place] [address] 05353- 9687 Feb, Low back pain, unspecified back pain laterality, with sciatica presence unspecified M54.5 and Anxiety F41.9 [facility] [id number] [place] [address] 13900 -3243 January, Abscess of toe of right foot L02.611 and Other atopic dermatitis L20.89 [place] [address] 18249- 5334 January, Low back pain, unspecified back pain laterality, with sciatica presence unspecified M54.5 and Anxiety F41.9 [place] [address] [address]- 9331 Dec, Anxiety F41.9 and Low back pain, unspecified back pain laterality, with sciatica presence unspecified M54.5 [facility] [address] [id number] Dec, Scabies B86 [facility] [address] [address] 4457 Nov, Rash R21 ; Other chronic pain G89.29 ; Hyperinsulinemia E16.1 ; Postoperative hypothyroidism E89.0 ; Breast cancer screening Z12.39 and Lipid screening Z13.220 [place] [address] 4838 Nov, Anxiety F41.9 and Low back pain, unspecified back pain laterality, with sciatica presence unspecified M54.5 [place] [address] 15746- 4390 Oct, Anxiety F41.9 and Low back pain, unspecified back pain laterality, with sciatica presence unspecified M54.5 [place] [address] 75979- 5543 Sep, Anxiety F41.9 and Low back pain, unspecified back pain laterality, with sciatica presence unspecified M54.5 [facility] [address] 03920- 3705 Sep, Anxiety F41.9 [facility] [address] 55267- 4052 Sep, Gastro-esophageal reflux disease without esophagitis K21.9 [facility] [address] [id number] Sep, Dental examination Z01.20 [facility] [address] 69051- 2637 Sep, Low back pain, unspecified back pain laterality, with sciatica presence unspecified M54.5 and Postoperative hypothyroidism E89.0 [facility] [id number] [place] [address] 60845- 0253 Aug, Anxiety F41.9 [facility] [address] 71577- 6720 Aug, [facility] [address] 88384- 3291 Aug, Low back pain, unspecified back pain laterality, with sciatica presence unspecified M54.5 ; Other chronic pain G89.29 ; Thyroid cancer C73 and Postoperative hypothyroidism E89.0 [facility] [address] 91281- 8270 Jul, [facility] [address] 23503- 5641 Jul, Anxiety F41.9 [place] [address] 15099- 7683 Jul, [facility] [address] 67978- 8814 Jul, BMI 29.0-29.9,adult Z68.29 [place] [id number] [place] [address] 53628- 0874 Jul, [facility] [id number] [place] [address] 24982- 1310 Jul, BMI 30.0-30.9,adult Z68.30 [facility] [id number] [place] [address] 80905- 4915 Jul, Low back pain, unspecified back pain laterality, with sciatica presence unspecified M54.5 and Anxiety F41.9 [facility] [id number] [place] [address] 39881- 1194 Jun, Hyperinsulinemia E16.1 [facility] [id number] [place] [address] 10760- 2138 Jun, BMI 30.0-30.9,adult Z68.30 [place] [address] 10315- 7223 14 Jun, 2016 [place] [address] 400676- 4820 10 Jun, 2016 Hyperinsulinemia E16.1 ; Dysthymia F34.1 ; Encounter for immunization Z23 and Other chronic pain G89.29 [place] [address] 90545- 9883 Jun, Low back pain, unspecified back pain laterality, with sciatica presence unspecified M54.5 [place] [address] 73474- 9969 Jun, BMI 30.0-30.9,adult Z68.30 [place] [address] 31569- 6068 Jun, Anxiety F41.9 [place] [address] 49006- 2301 May, Hyperinsulinemia E16.1 [place] [address] 11719- 1067 May, Constipation, unspecified constipation type K59.00 [place] [address] 75285- 5645 08 May, 2016 Low back pain, unspecified back pain laterality, with sciatica presence unspecified M54.5 [place] [address] 12974- 6539 May, [place] [address] 69287- 7107 May, Constipation, unspecified constipation type K59.00 [facility] [address] 13198- 0498 May, Anxiety F41.9 [place] [address] 26648- 8850 Apr, BMI 31.0-31.9,adult Z68.31 [facility] [id number] [place] [address] 43170- 4006 Apr, Thyroid goiter E04.9 [facility] [id number] [place] [address] 12575- 4080 Apr, [facility] [address] 25809- 4191 Apr, Low back pain, unspecified back pain laterality, with sciatica presence unspecified M54.5 [place] [address] 01093- 3635 Apr, [place] [address] 47698- 9158 Apr, Constipation, unspecified constipation type K59.00 ; Thyroid nodule E04.1 ; Family history of colon cancer Z80.0 and Hyperinsulinemia E16.1 [place] [id number] [place] [address] 43844- 1820 Apr, Anxiety F41.9 [place] [address] 05116- 1983 Mar, [place] [id number] [place] [address] 92856- 1709 Mar, Low back pain, unspecified back pain laterality, with sciatica presence unspecified M54.5 [place] [id number] [place] [address] 45734- 4109 Mar, BMI 32.0-32.9,adult Z68.32 [place] [address] 04637- 6025 Feb, Anxiety F41.9 [place] [id number] [place] [address] 83210- 3934 Feb, Depression, unspecified depression type F32.9 [place] [address] [place] [address]- 2671 30 Feb, 2016 BMI 32.0-32.9,adult Z68.32 [place] [id number] [place] [address] 58295- 8436 16 Feb, 2016 Low back pain, unspecified back pain laterality, with sciatica presence unspecified M54.5 [place] [id number] [place] [address] 36009- 3687 14 Feb, 2016 [place] [id number] [place] [address] 48293- 0876 Feb, BMI 32.0-32.9,adult Z68.32 [place] [id number] [place] [address] 17254- 2366 Feb, Anxiety F41.9 [place] [id number] [place] [address] 90809- 8905 January, BMI 32.0-32.9,adult Z68.32 [place] [id number] [place] [address] 77427- 1943 January, Low back pain, unspecified back pain laterality, with sciatica presence unspecified M54.5 ; Other chronic pain G89.29 ; Weight gain R63.5 and Rheumatoid arthritis, involving unspecified site, unspecified rheumatoid factor presence M06.9 [place] [id number] [place] [address] 08823- 4181 January, Low back pain, unspecified back pain laterality, with sciatica presence unspecified M54.5 [place] [id number] [place] [address] 82376- 1273 January, BMI 32.0-32.9,adult Z68.32 [place] [id number] [place] [address] 87246- 2109 January, BMI 32.0-32.9,adult Z68.32 [place] [id number] [place] [address] 25513- 3837 January, BMI 32.0-32.9,adult Z68.32 [facility] [id number] [place] [address] 92306- 4039 Dec, Insomnia G47.00 and Dysthymia F34.1 [facility] [id number] [place] [address] 86276- 7918 Dec, [facility] [address] 14833- 6985 Dec, Other chronic pain G89.29 ; Neuropathy G62.9 and Dysthymia F34.1 [facility] [address] 43507- 3100 Dec, [facility] [id number] [place] [address] 17915- 6275 Nov, [facility] [address] 65818- 2253 Nov, [facility] [id number] [place] [address] 01801- 2275 Nov, [facility] [address] 16324- 3384 Oct, [facility] [id number] [place] [address] 44942- 8002 Oct, [facility] [id number] [place] [address] 71241- 3497 Oct, Family history of diabetes mellitus Z83.3 [facility] [id number] [place] [address] 53846- 5580 Oct, [facility] [id number] [place] [address] 33876- 3476 Sep, [facility] [id number] [place] [address] 55220- 6210 Sep, Eye pain, right H57.11 and Other chronic pain G89.29 [facility] [id number] [place] [address] 70782- 8564 Sep, [facility] [id number] [place] [address] 54955- 7161 Sep, [facility] [id number] [place] [address] 17180- 3963 Sep, Hyperinsulinemia E16.1 ; Neuropathy G62.9 ; Low back pain, unspecified back pain laterality, with sciatica presence unspecified M54.5 ; Gastro-esophageal reflux disease without esophagitis K21.9 and Encounter for long-term (current) use of other medications V58.69 [place] [id number] [place] [address] 36210- 8035 Sep, [place] [id number] [place] [address] 92266- 3087 Sep, [place] [id number] [place] [address] 51174- 9738 Sep, [facility] [id number] [place] [address] 40198- 4989 Sep, [facility] [id number] [place] [address] 22576- 5855 Aug, [facility] [id number] [place] [address] 64577- 1236 Aug, Family history of diabetes mellitus Z83.3 [facility] [id number] [place] [address] 74452- 4566 Aug, [facility] [address] [place] [address] 50041- 5410 Aug, [facility] [id number] [place] [address] 85917- 2788 16 Aug, 2015 Family history of diabetes mellitus Z83.3 [facility] [address] [place] [address] 29124- 7231 14 Aug, 2015 Weight gain R63.5 ; Edema, unspecified R60.9 ; Family history of diabetes mellitus Z83.3 and Gastroesophageal reflux disease with esophagitis K21.0 [facility] [id number] [place] [address] 70458- 3867 14 Aug, 2015 [facility] [id number] [place] [address] 24676- 4794 Aug, [facility] [id number] [place] [address] 80749- 2093 Jul, [facility] [id number] [place] [address] 28132- 0308 Jul, [facility] [address] 01517- 7957 Jul, [facility] [id number] [place] [address] 29762- 3049 Jun, [facility] [id number] [place] [address] 56795- 8663 Jun, Nose pain J34.89 ; Encounter for immunization Z23 ; Screening for breast cancer Z12.39 and Encounter for long-term (current) use of other medications V58.69 [facility] [id number] [place] [address] 54760- 1268 Jun, [facility] [address], [place] [address]- 1395 23 May, 2015 [facility] [id number] [place] [address] 02560- 5829 18 May, 2015 [facility] [id number] [place] [address] 66185- 8174 17 May, 2015 [facility] [id number] [place] [address] 95335- 8332 17 May, 2015 [facility] [id number] [place] [address] 57461- 0832 10 May, 2015 [facility] [id number] [place] [address] 10011- 1725 May, [facility] [address], [place] [address]- 3469 May, [facility] [address], [place] [address]- 3843 Apr, [facility] [address], [place] [address]- 9031 Apr, [facility] [id number] [place] [address] 38646- 5680 Apr, [facility] [id number] [place] [address] 06575- 3170 Mar, [facility] [id number] [place] [address] 89551- 2796 Mar, [facility] [id number] [place] [address] 17406- 8529 Mar, Lesion of left shoulder 709.9 [facility] [address], [place] [address]- 5957 Mar, [facility] [id number] [place] [address] 83082- 9896 Mar, [facility] [address], [place] [address]- 5222 Mar, [facility] [address], [place] [address]- 8231 Feb, [facility] [address], [place] [address]- 8475 Feb, [facility] [id number] [place] [address] 57574- 2005 Feb, Unspecified backache 724.5 ; Weight gain 783.1 ; Hypothyroid 244.9 ; Edema 782.3 and Diaphoresis 780.8 [facility] [address] [address]- 8770 Feb, [facility] [place] [facility] [address] [id number] [place] [address]- 4249 10 Feb, 2015 [facility] [place] [facility] [address] [id number] [place] [address]- 4571 09 Feb, 2015 [facility] [place] [facility] [address] [id number] [place] [address]- 2099 04 Feb, 2015 [facility] [place] [facility] [address] [id number] [place] [address]- 5851 Feb, [facility] [place] [facility] [address] [id number] [place] [address]- 4192 January, [facility] [place] [facility] [address] [id number] [place] [address]- 0705 January, [facility] [place] [facility] [address] [id number] [place] [address]- 0005 14 Dec, 2014 [facility] [place] [facility] [address] [id number] [place] [address]- 2520 Dec, [facility] [place] [facility] [address] [id number] [place] [address]- 6349 16 Nov, 2014 [facility] [place] [facility] [address] [id number] [place] [address]- 4931 16 Nov, 2014 [facility] [place] [facility] [address] [id number] [place] [address]- 5399 16 Nov, 2014 [facility] [place] [facility] [address] [id number] [place] [address]- 3816 16 Nov, 2014 [facility] [place] [facility] [address] [id number] [place] [address]- 7995 16 Nov, 2014 [facility] [place] [facility] [address] [id number] [place] [address]- 2402 16 Nov, 2014 [facility] [place] [facility] [address] [id number] [place] [address]- 2844 12 Nov, 2014 [facility] [place] [facility] [address] [id number] [place] [address] Nov, [facility] [place] [facility] [address] [id number] [place] [address] Nov, [facility] [place] [facility] [address] [id number] [place] [address] Nov, [facility] [place] [facility] [address] [id number] [place] [address] Nov, [facility] [place] [facility] [address] [id number] [place] [address] Nov, [facility] [place] [facility] [address] [id number] [place] [address] Nov, [facility] [place] [facility] [address] [id number] [place] [address] Oct, [facility] [place] [facility] [address] [id number] [place] [address] Oct, [facility] [place] [facility] [address] [id number] [place] [address] Sep, [facility] [place] [facility] [address] [id number] [place] [address] Sep, [facility] [place] [facility] [address] [id number] [place] [address] Aug, [facility] [place] [facility] [address] [id number] [place] [address] Aug, [facility] [place] [facility] [address] [id number] [place] [address] Aug, [facility] [place] [facility] [address] [id number] [place] [address] Aug, [facility] [place] [facility] [address] [id number] [place] [address] Aug, [facility] [place] [facility] [address] [id number] [place] [address] Aug, [facility] [place] [facility] [address] [id number] [place] [address] Aug, [facility] [place] [facility] [address] [id number] [place] [address] Aug, [facility] [place] [facility] [address] [id number] [place] [address] Aug, [facility] [place] [facility] [address] [id number] [place] [address] Jul, [facility] [place] [facility] [address] [id number] [place] [address] Jul, [facility] [place] [facility] [address] [address] [id number] [place] [address] Jul, [facility] [place] [facility] [address] [id number] [place] [address] Jul, [facility] [place] [facility] [address] [id number] [place] [address] 8[address] Jul, [facility] [place] [facility] [address] [id number] [place] [address] 15[address] Jul, [facility] [place] [facility] [address] [id number] [place] [address] Jul, [facility] [place] [facility] [address] [id number] [place] [address] 0778 Jul, [facility] [place] [facility] [address] [id number] [place] [address] 8254 Jul, [facility] [place] [facility] [address] [id number] [place] [address] 8527 Jul, [facility] [place] [facility] [address] [id number] [place] [address] 1523 Jun, [facility] [place] [facility] [address] [id number] [place] [address] 3483 Jun, [facility] [place] [facility] [address] [id number], [place] [address] Jun, [facility] [place] [facility] [address] [id number] [place] [address] 8[address] Jun, [facility] [place] [facility] [address] [id number] [place] [address]- 2459 Jun, [facility] [place] [facility] [address] [id number] [place] [address]- 7373 Jun, [facility] [place] [facility] [address] [id number] [place] [address]- [address] 30 May, 2013 [facility] [place] [facility] [address] [id number] [place] [address] 2345 30 May, 2013 [facility] [place] [facility] [address] [id number] [place] [address]- 3743 29 May, 2013 [facility] [place] [facility] [address] [id number] [place] [address] 3012 29 May, 2013 [facility] [place] [facility] [address] [id number] [place] [address]- 3669 24 May, 2013 [facility] [place] [facility] [address] [id number] [place] [address]- 6396 24 May, 2013 [facility] [place] [facility] [address] [id number] [place] [address]- 9050 22 May, 2013 [facility] [place] [facility] [address] [id number], [place] [address] May, 2013 [facility] [place] [facility] [address] [id number], [place] [address]- [address] 05 Sep, 2013 [facility] [place] [facility] [address] [id number] [place] [address]- 2542 05 Sep, 2013 [facility] [place] [facility] [address] [id number] [place] [address] 9848 May, 2013 [facility] [place] [facility] [address] [id number] [place] [address]- 2541 02 May, 2013 [facility] [place] [facility] [address] [id number] [place] [address]- 2090 Apr, [facility] [place] [facility] [address] [id number] [place] [address]- 9988 Apr, [facility] [place] [facility] [address] [id number] [place] [address]- 7405 Apr, [facility] [place] [facility] [address] [id number] [place] [address]- 2194 Apr, [facility] [place] [facility] [address] [id number] [place] [address]- 8658 Apr, [facility] [place] [facility] [address] [id number] [place] [address]- 2325 Apr, [facility] [place] [facility] [address] [id number] [place] [address]- 0901 Apr, [facility] [place] [facility] [address] [id number] [place] [address]- 5061 Apr, [facility] [place] [facility] [address] [id number] [place] [address]- 5689 Apr, [facility] [place] [facility] [address] [id number] [place] [address]- 1493 Apr, [facility] [place] [facility] [address] [id number] [place] [address]- 9138 Apr, [facility] [place] [facility] [address] [id number] [place] [address]- 0508 Apr, [facility] [place] [facility] [address] [id number] [place] [address]- 6640 Apr, [facility] [place] [facility] [address] [id number] [place] [address]- 5964 Apr, [facility] [place] [facility] [address] [id number] [place] [address]- 7240 Apr, [facility] [place] [facility] [address] [id number] [place] [address]- 4622 Apr, [facility] [place] [facility] [address] [id number] [place] [address]- 2214 Apr, [facility] [place] [facility] [address] [id number] [place] [address]- 7397 Apr, [facility] [place] [facility] [address] [id number] [place] [address]- 5365 Apr, [facility] [place] [facility] [address] [id number] [place] [address]- 2531 Apr, [facility] [place] [facility] [address] [id number] [place] [address]- 6910 Apr, [facility] [place] [facility] [address] [id number] [place] [address]- 3348 Apr, [facility] [place] [facility] [address] [id number] [place] [address]- 0847 Apr, [facility] [place] [facility] [address] [id number] [place] [address]- 0238 Mar, [facility] [place] [facility] [address] [id number] [place] [address]- 1506 Mar, [facility] [place] [facility] [address] [id number] [place] [address]- 8186 Mar, [facility] [place] [facility] [address] [id number] [place] [address]- 1794 Mar, [facility] [place] [facility] [address] [id number] [place] [address]- 2345 Mar, [facility] [place] [facility] [address] [id number] [place] [address]- 3995 Mar, [facility] [place] [facility] [address] [id number] [place] [address]- 5615 Mar, [facility] [place] [facility] [address] [id number] [place] [address]- 5333 Mar, [facility] [place] [facility] [address] [id number] [place] [address]- 6277 Mar, [facility] [place] [facility] [address] [id number] [place] [address]- 8559 Mar, [facility] [place] [facility] [address] [id number] [place] [address]- 8079 Mar, [facility] [place] [facility] [address] [id number] [place] [address]- 4144 Mar, [facility] [place] [facility] [address] [id number] [place] [address]- 7374 Mar, [facility] [place] [facility] [address] [id number] [place] [address]- 9534 Mar, [facility] [place] [facility] [address] [id number] [place] [address]- 7281 Feb, [facility] [place] [facility] [address] [id number] [place] [address]- 3321 Feb, [facility] [place] [facility] [address] [id number] [place] [address]- 7853 Feb, [facility] [place] [facility] [address] [id number] [place] [address]- 0939 Feb, [facility] [place] [facility] [address] [id number] [place] [address]- 4556 Feb, [facility] [place] [facility] [address] [id number] [place] [address]- 6001 Feb, [facility] [place] [facility] [address] [id number] [place] [address]- 0441 Feb, [facility] [place] [facility] [address] [id number] [place] [address]- 7730 Feb, [facility] [place] [facility] [address] [id number] [place] [address]- 3422 Dec, [facility] [place] [facility] [address] [id number] [place] [address]- 7090 Dec, [facility] [place] [facility] [address] [id number] [place] [address]- 6814 Dec, [facility] [place] [facility] [address] [id number] [place] [address]- 2350 Dec, [facility] [place] [facility] [address] [id number] [place] [address]- 9409 Nov, [facility] [place] [facility] [address] [id number] [place] [address]- 2361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
--- OUTSIDE RECORDS SUMMARY | 2018-06-07 12:03 | XMS REPORT ---
Author Author FLYNN Rubio Organization [facility] Address Unknown Care Team Providers Care Product Transfer Pumper Name Role Phone FLYNN Rubio Unavailable PROBLEMS Type Condition ICD9-CM Code [id number] Code Onset Dates Condition Status SNOMED Code Problem Insomnia G47.00 Active 423639316 Problem Chest pain, unspecified type R07.9 Active 12064381 Problem Rheumatoid arthritis, involving unspecified site, unspecified rheumatoid factor presence M06.9 Active 42944946 Problem Other atopic dermatitis L20.89 Active 43899660 Problem Postoperative hypothyroidism E89.0 Active 78941000 Problem Depression, unspecified depression type F32.9 Active 38789925 Problem Anxiety F41.9 Active 81141160 Problem Thyroid cancer C73 Active 802270960 Problem BMI 30.0-30.9,adult Z68.30 Active 666461876 Problem Hyperinsulinemia E16.1 Active 36137879 Problem Gastro-esophageal reflux disease without esophagitis K21.9 Active 286178771 Problem Low back pain, unspecified back pain laterality, with sciatica presence unspecified M54.5 Active 203687315 Problem Other chronic pain G89.29 Active 12921688 Problem Neuropathy G62.9 Active 601402782 Problem Dysthymia F34.1 Active 77936711 ALLERGIES Substance Reaction Event Type Date Status Penicillin V Potassium anaphylaxis Drug Allergy Sep, Active Klonopin Makes her cry all the time Drug Allergy Sep, Active SOCIAL HISTORY No smoking Hx information available PLAN OF CARE Activity Details Follow Up prn Reason:as needed VITAL SIGNS Height 68 in 2016-09-15 Blood pressure systolic 127 mmHg 2016-09-15 Blood pressure diastolic 57 mmHg 2016-09-15 MEDICATIONS Medication Instructions Dosage Frequency Start Date End Date Duration Status Test strips ... Verio One Touch Once a day as directed 24h Apr, Active Centrum Silver Adult 50+ Orally once a day one 24h Active Lisinopril 20 MG TAKE 1 TABLET ONE TIME DAILY 90 Active Blood Glucose Meter 1 glucometer Verio One Touch Once a day test blood sugar 24h 08 Apr, 2016 Active Calcium 600 MG Orally Twice a day 3 tablets with meals 12h Active Ibuprofen 800 MG Orally 2 times a day 1 tablet 12h Dec, Active Levothyroxine Sodium 150 MCG Orally Once a day 1 tablet on an empty stomach in the morning 24h Active Plaquenil 200 MG Orally Twice a day 1 tablet with food or milk 12h Active Gabapentin 300 MG Orally Three times a day 1 capsule 8h Active Tramadol HCl 50 mg Orally 3 times a day 2 tablet 8h Sep, Sep, 28 days Active MetFORMIN HCl ER 500 MG Orally 2 times a day 1 tablet with meals 12h 21 Aug 90 days Active Celexa 20 mg Orally Once a day 1 tablet 24h 14 Jul, 2014 90 days Active Omeprazole 20 MG TAKE 1 CAPSULE EVERY DAY 90 Active Tizanidine HCl 4 MG Orally 3 times a day 1 tablet as needed 8h Active Potassium Chloride Marie ER 20 MEQ Orally Once a day 2 tablets 24h 90 days Active Trazodone HCl 100 MG Orally Once a day 1 tablet at bedtime 24h January, 90 days Active Bumetanide 2 MG Orally Once a day 1 tablet 24h 90 Active Calcium + D3 600-200 MG-UNIT Active Neurontin 300 MG Orally in AM and noon and 2 at hs 1 capsule Active Gelatin 650 MG Orally twice a day 2 capsules 12h Active Alprazolam 0.25 MG Orally 2 times a day 1 tablet 12h 28 days Active RESULTS No Results PROCEDURES Procedure Date Ordered Related Diagnosis Body Site LTD ORAL EVALUATION - PROBLEM FOCUS Sep 15, 2016 PANORAMIC FILM SEE ALSO CODE [id number] Sep 15, 2016 Billing Notes on claim Sep 15, 2016 IMMUNIZATIONS No Known Immunizations
--- OUTSIDE RECORDS SUMMARY | 2018-06-07 12:04 | XMS REPORT ---
Author Author ELISEO BENDER Organization [employer] Address Unknown Phone Unavailable Care Team Providers Care Blunger Name Role Phone ELISEO BENDER CP Unavailable [...]
--- OUTSIDE RECORDS SUMMARY | 2018-06-07 12:05 | XMS REPORT ---
Author Author ELISEO BENDER Organization [facility] Address [address] [place] [address] Care Team Providers Care Sprigger Name Role Phone ELISEO BENDER Unavailable PROBLEMS Type Condition ICD9-CM Code IZP03-AA Code Onset Dates Condition Status SNOMED Code Problem Insomnia G47.00 Active 747797809 Problem Chest pain, unspecified type R07.9 Active 19451433 Problem Rheumatoid arthritis, involving unspecified site, unspecified rheumatoid factor presence M06.9 Active 93384772 Problem BMI 31.0-31.9,adult Z68.31 Active 923594936 Problem Other atopic dermatitis L20.89 Active 09837840 Problem Depression, unspecified depression type F32.9 Active 20096569 Problem Anxiety F41.9 Active 14988153 Problem Thyroid cancer C73 Active 487623375 Problem Postoperative hypothyroidism E89.0 Active 83855927 Problem Hyperinsulinemia E16.1 Active 61496718 Problem Gastro-esophageal reflux disease without esophagitis K21.9 Active 846953115 Problem Low back pain, unspecified back pain laterality, with sciatica presence unspecified M54.5 Active 331152510 Problem Other chronic pain G89.29 Active 40265412 Problem Neuropathy G62.9 Active 670676404 Problem Dysthymia F34.1 Active 38685770 ALLERGIES No Information ENCOUNTERS Encounter Location Date Diagnosis [facility] [id number] [address] January, [facility] [id number] [place] [address] 33711- 3193 Dec, Low back pain, unspecified back pain laterality, with sciatica presence unspecified M54.5 [facility] [id number], [place] [address] Nov, Low back pain, unspecified back pain laterality, with sciatica presence unspecified M54.5 [place] [address] 27458- 8076 Nov, [place] [address] [place] [id number]- 8744 Nov, Low back pain, unspecified back pain laterality, with sciatica presence unspecified M54.5 ; Other chronic pain G89.29 ; Rheumatoid arthritis, involving unspecified site, unspecified rheumatoid factor presence M06.9 and Dysthymia F34.1 [place] [address] 42806- 6359 Oct, Low back pain, unspecified back pain laterality, with sciatica presence unspecified M54.5 [place] [address] 95852- 4019 Sep, Low back pain, unspecified back pain laterality, with sciatica presence unspecified M54.5 [facility] [place] [address] [address] -[address]99 Sep, Fever R50.9 and URI, acute J06.9 [place] [address] 52731- 1397 Aug, [place] [address] 65141- 1447 Aug, Low back pain, unspecified back pain laterality, with sciatica presence unspecified M54.5 [place] [address] 19562- 5323 Jul, Low back pain, unspecified back pain laterality, with sciatica presence unspecified M54.5 [facility] [place] [address] 67[address]80 15 Jul, 2017 Nausea R11.0 ; Fever and chills R50.9 ; UTI symptoms R39.9 and Hematuria, unspecified type R31.9 [place] [address] 46869- 4840 Jul, [place] [id number] [place] [address] 95184- 9841 Jun, Low back pain, unspecified back pain laterality, with sciatica presence unspecified M54.5 [place] [id number] [place] [address] 71077- 1711 Jun, BMI 31.0-31.9,adult Z68.31 [place] [address] 36919- 6086 Jun, Neuropathy G62.9 [place] [address] 56426- 3328 Jun, Low back pain, unspecified back pain laterality, with sciatica presence unspecified M54.5 [place] [address] 22236- 1502 Jun, Encounter for immunization Z23 [place] [address] 07167- 6726 Jun, BMI 31.0-31.9,adult Z68.31 [place] [address] 33207- 2697 Jun, Low back pain, unspecified back pain laterality, with sciatica presence unspecified M54.5 [place] [id number] [place] [address] 77703- 1931 May, Low back pain, unspecified back pain laterality, with sciatica presence unspecified M54.5 ; Other chronic pain G89.29 ; Plantar fasciitis M72.2 ; Rheumatoid arthritis, involving unspecified site, unspecified rheumatoid factor presence M06.9 and History of alcohol abuse Z87.898 [place] [id number] [place] [address] 03232- 1445 May, Anxiety F41.9 and Low back pain, unspecified back pain laterality, with sciatica presence unspecified M54.5 [place] [address] 19019- 6354 11 Apr, 2017 Anxiety F41.9 and Low back pain, unspecified back pain laterality, with sciatica presence unspecified M54.5 [place] [address] 64192- 6309 18 Mar, 2017 Acute right-sided low back pain without sciatica M54.5 ; Rash R21 ; Right flank pain R10.9 ; Lipid screening Z13.220 ; Other chronic pain G89.29 ; Hyperinsulinemia E16.1 ; Postoperative hypothyroidism E89.0 and Breast cancer screening Z12.39 [place] [address] 22264- 0720 14 Mar, 2017 Anxiety F41.9 and Low back pain, unspecified back pain laterality, with sciatica presence unspecified M54.5 [place] [address] 76124- 7264 13 Mar, 2017 Acute right-sided low back pain without sciatica M54.5 [place] [address] 74647- 2027 07 Mar, 2017 Anxiety F41.9 [place] [address] 32990- 8017 28 Feb, 2017 Right flank pain R10.9 and Anxiety F41.9 [place] [address] 77668- 0313 16 Feb, 2017 BMI 31.0-31.9,adult Z68.31 [place] [address] 95996- 6616 16 Feb, 2017 Low back pain, unspecified back pain laterality, with sciatica presence unspecified M54.5 and Anxiety F41.9 [facility] [address] [address]7727 January, Abscess of toe of right foot L02.611 and Other atopic dermatitis L20.89 [place] [address] 55527- 2171 January, Low back pain, unspecified back pain laterality, with sciatica presence unspecified M54.5 and Anxiety F41.9 [place] [address] [place] [id number]- 4268 Dec, Anxiety F41.9 and Low back pain, unspecified back pain laterality, with sciatica presence unspecified M54.5 [facility] [address] 88915 -4195 Dec, Scabies B86 [place] [address] 82755- 1350 Nov, Rash R21 ; Other chronic pain G89.29 ; Hyperinsulinemia E16.1 ; Postoperative hypothyroidism E89.0 ; Breast cancer screening Z12.39 and Lipid screening Z13.220 [place] [address] 70438- 9440 Nov, Anxiety F41.9 and Low back pain, unspecified back pain laterality, with sciatica presence unspecified M54.5 [place] [address] 49597- 5849 Oct, Anxiety F41.9 and Low back pain, unspecified back pain laterality, with sciatica presence unspecified M54.5 [place] [address] 44732- 2406 Sep, Anxiety F41.9 and Low back pain, unspecified back pain laterality, with sciatica presence unspecified M54.5 [place] [address] 88920- 4128 Sep, Anxiety F41.9 [place] [address] 14770- 1435 Sep, Gastro-esophageal reflux disease without esophagitis K21.9 [facility] [address] [id number] Sep, Dental examination Z01.20 [place] [id number] [place] [address] 87000- 9531 Sep, Low back pain, unspecified back pain laterality, with sciatica presence unspecified M54.5 and Postoperative hypothyroidism E89.0 [place] [id number] [place] [address] 52765- 4620 Aug, Anxiety F41.9 [place] [id number] [place] [address] 06253- 3420 Aug, [place] [address] 39846- 7748 Aug, Low back pain, unspecified back pain laterality, with sciatica presence unspecified M54.5 ; Other chronic pain G89.29 ; Thyroid cancer C73 and Postoperative hypothyroidism E89.0 [place] [id number] [place] [address] 60564- 5613 Jul, [place] [address] 03181- 1373 Jul, Anxiety F41.9 [place] [id number] [place] [address] 05791- 9593 Jul, [place] [id number] [place] [address] 32477- 7183 Jul, BMI 29.0-29.9,adult Z68.29 [place] [id number] [place] [address] 87819- 2318 Jul, [place] [id number] [place] [address] 60285- 1500 Jul, BMI 30.0-30.9,adult Z68.30 [place] [id number] [place] [address] 22809- 2851 Jul, Low back pain, unspecified back pain laterality, with sciatica presence unspecified M54.5 and Anxiety F41.9 [place] [id number] [place] [address] 59681- 2629 Jun, Hyperinsulinemia E16.1 [facility] [id number] [place] [address] 14497- 4696 17 Jun, 2016 BMI 30.0-30.9,adult Z68.30 [facility] [address] 08593- 7565 14 Jun, 2016 [facility] [address] 513038- 4998 Jun, Hyperinsulinemia E16.1 ; Dysthymia F34.1 ; Encounter for immunization Z23 and Other chronic pain G89.29 [place] [address] 950341- 9173 06 Jun, 2016 Low back pain, unspecified back pain laterality, with sciatica presence unspecified M54.5 [place] [address] 72025- 6464 Jun, BMI 30.0-30.9,adult Z68.30 [facility] [address] 60936- 9201 Jun, Anxiety F41.9 [place] [address] 74238- 5317 May, Hyperinsulinemia E16.1 [facility] [id number] [place] [address] 15994- 0829 May, Constipation, unspecified constipation type K59.00 [facility] [address] 56366- 3810 08 May, 2016 Low back pain, unspecified back pain laterality, with sciatica presence unspecified M54.5 [facility] [address] 12193- 9615 May, [facility] [address] 84207- 9650 07 May, 2016 Constipation, unspecified constipation type K59.00 [facility] [id number] [place] [address] 86477- 7090 May, Anxiety F41.9 [place] [address] 29931- 5786 Apr, BMI 31.0-31.9,adult Z68.31 [place] [address] 68058- 4321 Apr, Thyroid goiter E04.9 [place] [address] 38509- 4273 Apr, [place] [address] 23884- 1409 Apr, Low back pain, unspecified back pain laterality, with sciatica presence unspecified M54.5 [place] [address] 72071- 3931 Apr, [place] [address] 28637- 6567 Apr, Constipation, unspecified constipation type K59.00 ; Thyroid nodule E04.1 ; Family history of colon cancer Z80.0 and Hyperinsulinemia E16.1 [place] [address] 81270- 2447 Apr, Anxiety F41.9 [place] [id number] [place] [address] 85968- 2320 Mar, [place] [address] 78190- 7404 Mar, Low back pain, unspecified back pain laterality, with sciatica presence unspecified M54.5 [place] [address] 69378- 3888 Mar, BMI 32.0-32.9,adult Z68.32 [place] [address] 20752- 5594 Feb, Anxiety F41.9 [place] [id number] [place] [address] 17203- 2035 30 Feb, 2016 Depression, unspecified depression type F32.9 [place] [id number] [place] [address] 49702- 0804 Feb, BMI 32.0-32.9,adult Z68.32 [place] [id number] [place] [address] 35995- 2282 16 Feb, 2016 Low back pain, unspecified back pain laterality, with sciatica presence unspecified M54.5 [place] [id number] [place] [address] 84150- 0553 Feb, [place] [id number] [place] [address] 97211- 2988 Feb, BMI 32.0-32.9,adult Z68.32 [place] [id number] [place] [address] 95789- 7283 Feb, Anxiety F41.9 [place] [id number] [place] [address] 81340- 1906 January, BMI 32.0-32.9,adult Z68.32 [place] [id number] [place] [address] 07341- 9122 January, Low back pain, unspecified back pain laterality, with sciatica presence unspecified M54.5 ; Other chronic pain G89.29 ; Weight gain R63.5 and Rheumatoid arthritis, involving unspecified site, unspecified rheumatoid factor presence M06.9 [place] [address] [place] [address] 58704- 1719 January, Low back pain, unspecified back pain laterality, with sciatica presence unspecified M54.5 [place] [id number] [place] [address] 01835- 0240 January, BMI 32.0-32.9,adult Z68.32 [place] [id number] [place] [address] 35030- 5759 January, BMI 32.0-32.9,adult Z68.32 [facility] [id number] [place] [address] 18982- 3587 January, BMI 32.0-32.9,adult Z68.32 [facility] [id number] [place] [address] 20014- 2875 Dec, Insomnia G47.00 and Dysthymia F34.1 [facility] [address] 31797- 1015 Dec, [facility] [address] 29414- 7819 Dec, Other chronic pain G89.29 ; Neuropathy G62.9 and Dysthymia F34.1 [facility] [id number] [place] [address] 92379- 0653 Dec, [facility] [id number] [place] [address] 05022- 8398 Nov, [facility] [id number] [place] [address] 46134- 5874 Nov, [facility] [id number] [place] [address] 08922- 1464 Nov, [facility] [id number] [place] [address] 86742- 4443 Oct, [facility] [id number] [place] [address] 87054- 0292 Oct, [facility] [id number] [place] [address] 75673- 2574 Oct, Family history of diabetes mellitus Z83.3 [facility] [id number] [place] [address] 00706- 3609 Oct, [facility] [id number] [place] [address] 24801- 7752 Sep, [facility] [id number] [place] [address] 24755- 4868 Sep, Eye pain, right H57.11 and Other chronic pain G89.29 [facility] [id number] [place] [address] 76374- 9631 Sep, [facility] [id number] [place] [address] 58563- 4477 Sep, [facility] [id number] [place] [address] 17518- 5455 Sep, Hyperinsulinemia E16.1 ; Neuropathy G62.9 ; Low back pain, unspecified back pain laterality, with sciatica presence unspecified M54.5 ; Gastro-esophageal reflux disease without esophagitis K21.9 and Encounter for long-term (current) use of other medications V58.69 [place] [id number] [place] [address] 68169- 9650 Sep, [place] [id number] [place] [address] 52546- 4018 Sep, [place] [address] 79305- 1765 Sep, [place] [id number] [place] [address] 35919- 0192 Sep, [place] [id number] [place] [address] 37468- 7005 Aug, [facility] [id number] [place] [address] 53558- 1624 Aug, Family history of diabetes mellitus Z83.3 [place] [address] 08403- 0292 Aug, [facility] [id number] [place] [address] 39164- 0971 Aug, [facility] [id number] [place] [address] 94967- 1862 Aug, Family history of diabetes mellitus Z83.3 [facility] [id number] [place] [address] 53371- 5992 14 Aug, 2015 Weight gain R63.5 ; Edema, unspecified R60.9 ; Family history of diabetes mellitus Z83.3 and Gastroesophageal reflux disease with esophagitis K21.0 [facility] [id number] [place] [address] 04546- 2628 14 Aug, 2015 [facility] [id number] [place] [address] 69076- 8962 Aug, [facility] [id number] [place] [address] 37610- 4884 Jul, [place] [id number] [place] [address] 12209- 6184 Jul, [place] [id number] [place] [address] 62926- 0345 Jul, [facility] [id number] [place] [address] 47160- 6162 Jun, [facility] [id number] [place] [address] 97662- 9688 Jun, Nose pain J34.89 ; Encounter for immunization Z23 ; Screening for breast cancer Z12.39 and Encounter for long-term (current) use of other medications V58.69 [place] [id number] [place] [address] 55716- 9902 Jun, [facility] [id number] [place] [address] 34558- 1782 May, [place] [id number] [place] [address] 903729- 2251 18 May, 2015 [facility] [id number] [place] [address] 47309- 7054 May, [facility] [id number] [place] [address] 47356- 6188 May, [facility] [address] [facility] [id number] [place] [address]- 4603 May, [facility] [address] [facility] [id number] [place] [address]- 8456 May, [facility] [address] [facility] [id number] [place] [address]- 8299 May, [facility] [address] [facility] [id number] [place] [address]- 9034 Apr, [facility] [address] [facility] [id number] [place] [address]- 2268 Apr, [facility] [address] [facility] [id number] [place] [address]- 5987 Apr, [facility] [id number] [place] [address]- 7204 Mar, [facility] [id number], [place] [address]- 3895 Mar, [facility] [id number], [place] [address]- 4363 Mar, Lesion of left shoulder 709.9 [facility] [id number], [place] [address]- 3885 Mar, [facility] [id number] [address]- 1345 Mar, [facility] [id number], [place] [address]- 4343 Mar, [facility] [id number] [address]- 2518 Feb, [facility] [id number], [place] [address]- 5633 Feb, [facility] [id number] [address]- 7135 Feb, Unspecified backache 724.5 ; Weight gain 783.1 ; Hypothyroid 244.9 ; Edema 782.3 and Diaphoresis 780.8 [facility] [id number] [place] [address]- 4136 18 Feb, 2015 [facility] [id number] [address]- 1055 10 Feb, 2015 [facility] [id number] [place] [address], [place] [address]- 8129 Feb, [facility] [address] [facility] [id number] [place] [address]- 7618 Feb, [facility] [id number] [place] [address], [place] [address]- 8751 Feb, [facility] [id number] [place] [address]- 3501 January, [facility] [id number] [place] [address]- 5519 January, [facility] [id number] [address]- 9064 14 Dec, 2014 [facility] [id number] [address]- 2622 13 Dec, 2014 [facility] [address] [address]- 5901 16 Nov, 2014 [facility] [address] [address]- 9403 16 Nov, 2014 [facility] [id number] [address]- 4066 16 Nov, 2014 [facility] [address] 1431 16 Nov, 2014 [facility] [id number] [address]- 7645 16 Nov, 2014 [facility] [address] 7552 16 Nov, 2014 [facility] [place] [facility] [address] [id number] [place] [address]- 7823 Nov, [facility] [place] [facility] [address] [id number] [place] [address]- 9692 Nov, [facility] [place] [facility] [address] [id number] [place] [address]- 3308 Nov, [facility] [place] [facility] [address] [id number] [place] [address]- 3311 Nov, [facility] [place] [facility] [address] [id number] [place] [address] Nov, [facility] [place] [facility] [address] [id number] [place] [address] Nov, [facility] [place] [facility] [address] [id number] [place] [address] Nov, [facility] [place] [facility] [address] [id number] [place] [address] Oct, [facility] [place] [facility] [address] [id number] [place] [address] Oct, [facility] [place] [facility] [address] [id number] [place] [address] Sep, [facility] [place] [facility] [address] [id number] [place] [address] Sep, [facility] [place] [facility] [address] [id number] [place] [address] Aug, [facility] [place] [facility] [address] [id number] [place] [address] Aug, [facility] [place] [facility] [address] [id number] [place] [address] Aug, [facility] [place] [facility] [address] [id number] [place] [address] Aug, [facility] [place] [facility] [address] [id number] [place] [address] 17 Aug, 2014 [facility] [place] [facility] [address] [id number] [place] [address] 17 Aug, 2014 [facility] [place] [facility] [address] [id number] [place] [address] Aug, [facility] [place] [facility] [address] [id number] [place] [address] Aug, [facility] [place] [facility] [address] [id number] [place] [address] Aug, [facility] [place] [facility] [address] [id number] [place] [address] Jul, [facility] [place] [facility] [address] [id number] [place] [address] Jul, [facility] [place] [facility] [address] [id number] [place] [address] Jul, [facility] [place] [facility] [address] [id number] [place] [address] Jul, [facility] [place] [facility] [address] [id number] [place] [address] Jul, [facility] [place] [facility] [address] [id number] [place] [address] 8568 Jul, [facility] [place] [facility] [address] [id number] [place] [address] 9[address] Jul, [facility] [place] [facility] [address] [id number] [place] [address] 1437 Jul, [facility] [place] [facility] [address] [id number] [place] [address] 2583 Jul, [facility] [place] [facility] [address] [id number] [place] [address] 7553 Jul, [facility] [place] [facility] [address] [id number] [place] [address]- 3355 Jun, [facility] [place] [facility] [address] [id number] [place] [address] 5304 Jun, [facility] [place] [facility] [address] [id number] [place] [address]- 6869 Jun, [facility] [place] [facility] [address] [id number] [place] [address]- 4548 Jun, [facility] [place] [facility] [address] [id number] [place] [address] 0030 Jun, [facility] [place] [facility] [address] [id number] [place] [address] 2718 Jun, [facility] [place] [facility] [address] [id number] [place] [address]- 7338 30 May, 2013 [facility] [place] [facility] [address] [id number] [place] [address]- 4194 30 May, 2013 [facility] [place] [facility] [address] [id number] [place] [address]- 9898 29 May, 2013 [facility] [place] [facility] [address] [id number] [place] [address]- 4340 29 May, 2013 [facility] [place] [facility] [address] [id number] [place] [address]- 2991 24 May, 2013 [facility] [place] [facility] [address] [id number] [place] [address]- 2543 24 May, 2013 [facility] [place] [facility] [address] [id number] [place] [address]- 0482 22 May, 2013 [facility] [place] [facility] [address] [id number] [place] [address]- 2543 22 May, 2013 [facility] [place] [facility] [address] [id number] [place] [address]- 2541 05 Sep, 2013 [facility] [place] [facility] [address] [id number] [place] [address]- 2548 05 Sep, 2013 [facility] [place] [facility] [address] [id number] [place] [address]- 4965 May, [facility] [place] [facility] [address] [id number] [place] [address]- 5572 May, [facility] [place] [facility] [address] [id number] [place] [address]- 7499 Apr, [facility] [place] [facility] [address] [id number] [place] [address]- 9119 Apr, [facility] [place] [facility] [address] [id number] [place] [address]- 1839 Apr, [facility] [place] [facility] [address] [id number] [place] [address]- 6526 Apr, [facility] [place] [facility] [address] [id number] [place] [address]- 0124 Apr, [facility] [place] [facility] [address] [id number] [place] [address]- 2820 Apr, [facility] [place] [facility] [address] [id number] [place] [address]- 8862 Apr, [facility] [place] [facility] [address] [id number] [place] [address]- 5728 Apr, [facility] [place] [facility] [address] [id number] [place] [address]- 5020 Apr, [facility] [place] [facility] [address] [id number] [place] [address]- 0378 Apr, [facility] [place] [facility] [address] [id number] [place] [address]- 2232 Apr, [facility] [place] [facility] [address] [id number] [place] [address]- 6788 Apr, [facility] [place] [facility] [address] [id number] [place] [address]- 9615 Apr, [facility] [place] [facility] [address] [id number] [place] [address]- 8459 Apr, [facility] [place] [facility] [address] [id number] [place] [address]- 9248 Apr, [facility] [place] [facility] [address] [id number] [place] [address]- 0951 Apr, [facility] [place] [facility] [address] [id number] [place] [address]- 0577 Apr, [facility] [place] [facility] [address] [id number] [place] [address]- 1431 Apr, [facility] [place] [facility] [address] [id number] [place] [address]- 0064 Apr, [facility] [place] [facility] [address] [id number] [place] [address]- 0012 Apr, [facility] [place] [facility] [address] [id number] [place] [address]- 1805 Apr, [facility] [place] [facility] [address] [id number] [place] [address]- 7325 Apr, [facility] [place] [facility] [address] [id number] [place] [address]- 0859 Apr, [facility] [place] [facility] [address] [id number] [place] [address]- 9456 Mar, [facility] [place] [facility] [address] [id number] [place] [address]- 1367 Mar, [facility] [place] [facility] [address] [id number] [place] [address]- 7232 Mar, [facility] [place] [facility] [address] [id number] [place] [address]- 6575 Mar, [facility] [place] [facility] [address] [id number] [place] [address]- 6299 Mar, [facility] [place] [facility] [address] [id number] [place] [address]- 6691 Mar, [facility] [place] [facility] [address] [id number] [place] [address]- 4774 Mar, [facility] [place] [facility] [address] [id number] [place] [address]- 4859 17 Mar, 2014 [facility] [place] [facility] [address] [id number] [place] [address]- 6974 Mar, [facility] [place] [facility] [address] [id number] [place] [address]- 4227 Mar, [facility] [place] [facility] [address] [id number] [place] [address]- 3369 Mar, [facility] [place] [facility] [address] [id number] [place] [address]- 0608 Mar, [facility] [place] [facility] [address] [id number] [place] [address]- 1904 Mar, [facility] [place] [facility] [address] [id number] [place] [address]- 4840 Mar, [facility] [place] [facility] [address] [id number] [place] [address]- 6441 Feb, [facility] [place] [facility] [address] [id number] [place] [address]- 0797 Feb, [facility] [place] [facility] [address] [id number] [place] [address]- 5047 Feb, [facility] [place] [facility] [address] [id number] [place] [address]- 1921 Feb, [facility] [place] [facility] [address] [id number] [place] [address]- 7559 Feb, [facility] [place] [facility] [address] [id number] [place] [address]- 7645 Feb, [facility] [place] [facility] [address] [id number] [place] [address]- 5479 Feb, [facility] [place] [facility] [address] [id number] [place] [address]- 8566 Feb, [facility] [place] [facility] [address] [id number] [place] [address]- 8342 Dec, [facility] [place] [facility] [address] [id number] [place] [address]- 8994 Dec, [facility] [place] [facility] [address] [id number] [place] [address]- 5603 Dec, [facility] [place] [facility] [address] [id number] [place] [address]- 6180 Dec, [facility] [place] [facility] [address] [id number] [place] [address]- 4156 Nov, [facility] [place] [facility] [address] [id number] [place] [address]- 1418 Nov, [facility] [place] [facility] [address] [facility] [id number] [place] [address]- 9266 Nov, [facility] [place] [facility] [address] [facility] [id number] [place] [address]- 9132 Nov, [facility] [place] [facility] [address] [facility] [id number] [place] [address]- 8522 Nov, [facility] [place] [facility] [address] [facility] [id number] [place] [address]- 7441 Nov, [facility] [place] [facility] [address] [facility]

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
--- OUTSIDE RECORDS SUMMARY | 2018-06-07 12:08 | XMS REPORT ---
Author Author ELISEO BENDER Organization [employer] Address Unknown Phone Unavailable Care Team Providers Care Manager Statistical Name Role Phone ELISEO BENDER CP Unavailable [...]
--- OUTSIDE RECORDS SUMMARY | 2018-06-07 12:09 | XMS REPORT ---
Author Author ELISEO BENDER Organization [employer] Address Unknown Phone Unavailable Care Team Providers Care Tax Appraiser Name Role Phone ELISEO BENDER CP Unavailable [...] Date Status Dosage Potassium Chloride Marie ER [facility] [address]-68 40 Orally Once a day Sep 1 tablet Lisinopril [facility] [address]-32 20 MG Orally Once a day 1 tablet Results No Known Results Summary Purpose [employer] Submission
--- OUTSIDE RECORDS SUMMARY | 2018-06-07 12:10 | XMS REPORT ---
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 Name Role Phone ELISEO BENDER Unavailable PROBLEMS Type Condition ICD9-CM Code ZKM29-MW Code Onset Dates Condition Status SNOMED Code Problem Insomnia G47.00 Active 932527486 Problem Chest pain, unspecified type R07.9 Active 13663307 Problem Rheumatoid arthritis, involving unspecified site, unspecified rheumatoid factor presence M06.9 Active 60412602 Problem BMI 31.0-31.9,adult Z68.31 Active 532692013 Problem Other atopic dermatitis L20.89 Active 29550976 Problem Depression, unspecified depression type F32.9 Active 76171369 Problem Anxiety F41.9 Active 98397630 Problem Thyroid cancer C73 Active 942680354 Problem Postoperative hypothyroidism E89.0 Active 64798470 Problem Hyperinsulinemia E16.1 Active 06310490 Problem Gastro-esophageal reflux disease without esophagitis K21.9 Active 174935099 Problem Low back pain, unspecified back pain laterality, with sciatica presence unspecified M54.5 Active 641946086 Problem Other chronic pain G89.29 Active 32256761 Problem Neuropathy G62.9 Active 901405652 Problem Dysthymia F34.1 Active 47899899 ALLERGIES No Information ENCOUNTERS Encounter Location Date Diagnosis [facility] [id number] [address] Dec, [facility] [address] [address] Nov, Low back pain, unspecified back pain laterality, with sciatica presence unspecified M54.5 [facility] [id number] [address] Nov, [facility] [id number] [place] [address] 24204- 8656 Nov, Low back pain, unspecified back pain laterality, with sciatica presence unspecified M54.5 ; Other chronic pain G89.29 ; Rheumatoid arthritis, involving unspecified site, unspecified rheumatoid factor presence M06.9 and Dysthymia F34.1 [place] [address] [address] Oct, Low back pain, unspecified back pain laterality, with sciatica presence unspecified M54.5 [place] [address] 35270- 8682 Sep, Low back pain, unspecified back pain laterality, with sciatica presence unspecified M54.5 [facility] [id number] [place] [address] 10276 -2411 Sep, Fever R50.9 and URI, acute J06.9 [place] [address] 6[address]27- 7107 Aug, [place] [address] 74697- 0161 Aug, Low back pain, unspecified back pain laterality, with sciatica presence unspecified M54.5 [place] [id number] [place] [address] 80982- 8664 Jul, Low back pain, unspecified back pain laterality, with sciatica presence unspecified M54.5 [facility] [id number] [place] [address] 84436 -4090 15 Jul, 2017 Nausea R11.0 ; Fever and chills R50.9 ; UTI symptoms R39.9 and Hematuria, unspecified type R31.9 [place] [id number] [place] [address] 65767- 3744 02 Jul, 2017 [place] [address] 56496- 7475 Jun, Low back pain, unspecified back pain laterality, with sciatica presence unspecified M54.5 [place] [id number] [place] [address] 03358- 0042 Jun, BMI 31.0-31.9,adult Z68.31 [facility] [id number] [place] [address] 12768- 2071 Jun, Neuropathy G62.9 [place] [address] 765913- 9812 Jun, Low back pain, unspecified back pain laterality, with sciatica presence unspecified M54.5 [place] [id number] [place] [address] 91918- 1912 Jun, Encounter for immunization Z23 [place] [id number] [place] [address] 99426- 6875 Jun, BMI 31.0-31.9,adult Z68.31 [place] [id number] [place] [address] 67803- 5871 Jun, Low back pain, unspecified back pain laterality, with sciatica presence unspecified M54.5 [place] [id number] [place] [address] 44770- 6566 May, Low back pain, unspecified back pain laterality, with sciatica presence unspecified M54.5 ; Other chronic pain G89.29 ; Plantar fasciitis M72.2 ; Rheumatoid arthritis, involving unspecified site, unspecified rheumatoid factor presence M06.9 and History of alcohol abuse Z87.898 [place] [address] [place] [address] 16283- 3197 May, Anxiety F41.9 and Low back pain, unspecified back pain laterality, with sciatica presence unspecified M54.5 [place] [id number] [place] [address] 11416- 4965 Apr, Anxiety F41.9 and Low back pain, unspecified back pain laterality, with sciatica presence unspecified M54.5 [place] [address] 08271- 9413 18 Mar, 2017 Acute right-sided low back pain without sciatica M54.5 ; Rash R21 ; Right flank pain R10.9 ; Lipid screening Z13.220 ; Other chronic pain G89.29 ; Hyperinsulinemia E16.1 ; Postoperative hypothyroidism E89.0 and Breast cancer screening Z12.39 [place] [address] 64805- 3117 14 Mar, 2017 Anxiety F41.9 and Low back pain, unspecified back pain laterality, with sciatica presence unspecified M54.5 [place] [address] 23872- 6556 13 Mar, 2017 Acute right-sided low back pain without sciatica M54.5 [place] [address] 46191- 9150 07 Mar, 2017 Anxiety F41.9 [place] [address] 48185- 9972 28 Feb, 2017 Right flank pain R10.9 and Anxiety F41.9 [place] [address] 20716- 7166 16 Feb, 2017 BMI 31.0-31.9,adult Z68.31 [place] [address] 27484- 3886 Feb, Low back pain, unspecified back pain laterality, with sciatica presence unspecified M54.5 and Anxiety F41.9 [facility] [id number] [place] [address] 08636 -4107 January, Abscess of toe of right foot L02.611 and Other atopic dermatitis L20.89 [place] [address] 01871- 8037 January, Low back pain, unspecified back pain laterality, with sciatica presence unspecified M54.5 and Anxiety F41.9 [place] [id number]- 5469 Dec, Anxiety F41.9 and Low back pain, unspecified back pain laterality, with sciatica presence unspecified M54.5 [facility] [address] [id number] -[address] Dec, Scabies B86 [facility] [address] [address]30 3942 Nov, Rash R21 ; Other chronic pain G89.29 ; Hyperinsulinemia E16.1 ; Postoperative hypothyroidism E89.0 ; Breast cancer screening Z12.39 and Lipid screening Z13.220 [address] [address] 5174 Nov, Anxiety F41.9 and Low back pain, unspecified back pain laterality, with sciatica presence unspecified M54.5 [place] [address] 53961- 9438 Oct, Anxiety F41.9 and Low back pain, unspecified back pain laterality, with sciatica presence unspecified M54.5 [place] [address] 41206- 9384 Sep, Anxiety F41.9 and Low back pain, unspecified back pain laterality, with sciatica presence unspecified M54.5 [facility] [address] 80288- 4480 Sep, Anxiety F41.9 [facility] [address] 15958- 6571 Sep, Gastro-esophageal reflux disease without esophagitis K21.9 [facility] [address] [id number] Sep, Dental examination Z01.20 [facility] [address] 69298- 3482 Sep, Low back pain, unspecified back pain laterality, with sciatica presence unspecified M54.5 and Postoperative hypothyroidism E89.0 [facility] [id number] [place] [address] 28340- 2034 Aug, Anxiety F41.9 [facility] [address] 92133- 3184 Aug, [facility] [address] 97465- 5057 Aug, Low back pain, unspecified back pain laterality, with sciatica presence unspecified M54.5 ; Other chronic pain G89.29 ; Thyroid cancer C73 and Postoperative hypothyroidism E89.0 [facility] [address] 52488- 3344 Jul, [facility] [address] 28858- 2226 Jul, Anxiety F41.9 [place] [address] 84584- 6709 Jul, [facility] [address] 75868- 8527 Jul, BMI 29.0-29.9,adult Z68.29 [place] [id number] [place] [address] 20500- 2442 Jul, [facility] [id number] [place] [address] 29881- 4668 Jul, BMI 30.0-30.9,adult Z68.30 [facility] [id number] [place] [address] 34983- 1804 Jul, Low back pain, unspecified back pain laterality, with sciatica presence unspecified M54.5 and Anxiety F41.9 [facility] [id number] [place] [address] 94844- 3827 Jun, Hyperinsulinemia E16.1 [facility] [id number] [place] [address] 70025- 2018 Jun, BMI 30.0-30.9,adult Z68.30 [place] [address] 21809- 1697 14 Jun, 2016 [place] [address] 101568- 1700 10 Jun, 2016 Hyperinsulinemia E16.1 ; Dysthymia F34.1 ; Encounter for immunization Z23 and Other chronic pain G89.29 [place] [address] 87803- 1696 Jun, Low back pain, unspecified back pain laterality, with sciatica presence unspecified M54.5 [place] [address] 14071- 0293 Jun, BMI 30.0-30.9,adult Z68.30 [place] [address] 98754- 9972 Jun, Anxiety F41.9 [place] [address] 09327- 4611 May, Hyperinsulinemia E16.1 [place] [address] 19428- 0680 May, Constipation, unspecified constipation type K59.00 [place] [address] 17919- 3460 08 May, 2016 Low back pain, unspecified back pain laterality, with sciatica presence unspecified M54.5 [place] [address] 06247- 1930 May, [place] [address] 88163- 3582 May, Constipation, unspecified constipation type K59.00 [facility] [address] 15223- 8981 May, Anxiety F41.9 [place] [address] 28924- 8891 Apr, BMI 31.0-31.9,adult Z68.31 [facility] [id number] [place] [address] 33819- 4296 Apr, Thyroid goiter E04.9 [facility] [id number] [place] [address] 37426- 8951 Apr, [facility] [address] 28316- 5733 Apr, Low back pain, unspecified back pain laterality, with sciatica presence unspecified M54.5 [place] [address] 14125- 0662 Apr, [place] [address] 95842- 7419 Apr, Constipation, unspecified constipation type K59.00 ; Thyroid nodule E04.1 ; Family history of colon cancer Z80.0 and Hyperinsulinemia E16.1 [place] [id number] [place] [address] 43930- 9637 Apr, Anxiety F41.9 [place] [address] 69340- 4878 Mar, [place] [id number] [place] [address] 21137- 1722 Mar, Low back pain, unspecified back pain laterality, with sciatica presence unspecified M54.5 [place] [id number] [place] [address] 24242- 5913 Mar, BMI 32.0-32.9,adult Z68.32 [place] [address] 52455- 9771 Feb, Anxiety F41.9 [place] [id number] [place] [address] 27764- 0586 Feb, Depression, unspecified depression type F32.9 [address] [place] [place] [address]- 4749 30 Feb, 2016 BMI 32.0-32.9,adult Z68.32 [place] [id number] [place] [address] 62205- 1907 16 Feb, 2016 Low back pain, unspecified back pain laterality, with sciatica presence unspecified M54.5 [place] [id number] [place] [address] 99880- 6740 14 Feb, 2016 [place] [id number] [place] [address] 45218- 5059 Feb, BMI 32.0-32.9,adult Z68.32 [place] [id number] [place] [address] 38208- 0315 Feb, Anxiety F41.9 [place] [id number] [place] [address] 98064- 4770 January, BMI 32.0-32.9,adult Z68.32 [place] [id number] [place] [address] 66828- 8049 January, Low back pain, unspecified back pain laterality, with sciatica presence unspecified M54.5 ; Other chronic pain G89.29 ; Weight gain R63.5 and Rheumatoid arthritis, involving unspecified site, unspecified rheumatoid factor presence M06.9 [place] [id number] [place] [address] 71542- 2721 January, Low back pain, unspecified back pain laterality, with sciatica presence unspecified M54.5 [place] [id number] [place] [address] 25123- 3817 January, BMI 32.0-32.9,adult Z68.32 [place] [id number] [place] [address] 56474- 0952 January, BMI 32.0-32.9,adult Z68.32 [place] [id number] [place] [address] 47060- 3812 January, BMI 32.0-32.9,adult Z68.32 [facility] [id number] [place] [address] 18184- 0699 Dec, Insomnia G47.00 and Dysthymia F34.1 [facility] [id number] [place] [address] 47739- 3939 Dec, [facility] [address] 16007- 5249 Dec, Other chronic pain G89.29 ; Neuropathy G62.9 and Dysthymia F34.1 [facility] [address] 27050- 2993 Dec, [facility] [id number] [place] [address] 93703- 5647 Nov, [facility] [address] 79155- 9638 Nov, [facility] [id number] [place] [address] 36541- 4271 Nov, [facility] [address] 41787- 3294 Oct, [facility] [id number] [place] [address] 11775- 0244 Oct, [facility] [id number] [place] [address] 78133- 5536 Oct, Family history of diabetes mellitus Z83.3 [facility] [id number] [place] [address] 17042- 3790 Oct, [facility] [id number] [place] [address] 10827- 7195 Sep, [facility] [id number] [place] [address] 76711- 2564 Sep, Eye pain, right H57.11 and Other chronic pain G89.29 [facility] [id number] [place] [address] 38891- 4929 Sep, [facility] [id number] [place] [address] 99321- 6776 Sep, [facility] [id number] [place] [address] 92986- 7897 Sep, Hyperinsulinemia E16.1 ; Neuropathy G62.9 ; Low back pain, unspecified back pain laterality, with sciatica presence unspecified M54.5 ; Gastro-esophageal reflux disease without esophagitis K21.9 and Encounter for long-term (current) use of other medications V58.69 [place] [id number] [place] [address] 76383- 0757 Sep, [place] [id number] [place] [address] 37105- 1068 Sep, [place] [id number] [place] [address] 16835- 3065 Sep, [facility] [id number] [place] [address] 72290- 4376 Sep, [facility] [id number] [place] [address] 69656- 7275 Aug, [facility] [id number] [place] [address] 93186- 8344 Aug, Family history of diabetes mellitus Z83.3 [facility] [id number] [place] [address] 11371- 8678 Aug, [facility] [id number] [place] [address] 92717- 4148 Aug, [facility] [id number] [place] [address] 72059- 4445 16 Aug, 2015 Family history of diabetes mellitus Z83.3 [facility] [address] [place] [address] 29902- 7719 14 Aug, 2015 Weight gain R63.5 ; Edema, unspecified R60.9 ; Family history of diabetes mellitus Z83.3 and Gastroesophageal reflux disease with esophagitis K21.0 [facility] [id number] [place] [address] 45482- 5660 14 Aug, 2015 [facility] [id number] [place] [address] 69766- 4442 Aug, [facility] [id number] [place] [address] 65080- 0900 Jul, [facility] [id number] [place] [address] 99685- 4373 Jul, [facility] [address] 45093- 4201 Jul, [facility] [id number] [place] [address] 29468- 1953 Jun, [facility] [id number] [place] [address] 11302- 2423 Jun, Nose pain J34.89 ; Encounter for immunization Z23 ; Screening for breast cancer Z12.39 and Encounter for long-term (current) use of other medications V58.69 [facility] [id number] [place] [address] 39689- 4142 Jun, [facility] [address], [place] [address]- 1353 23 May, 2015 [facility] [id number] [place] [address] 39467- 4979 18 May, 2015 [facility] [id number] [place] [address] 34046- 9188 17 May, 2015 [facility] [id number] [place] [address] 07846- 4698 17 May, 2015 [facility] [id number] [place] [address] 61172- 1244 10 May, 2015 [facility] [id number] [place] [address] 46371- 6268 May, [facility] [address], [place] [address]- [address] May, [facility] [address], [place] [address]- 5527 Apr, [facility] [address] [address]- 5681 Apr, [facility] [id number] [place] [address] 21016- 1055 Apr, [facility] [id number] [place] [address] 15974- 5721 Mar, [facility] [id number] [place] [address] 64134- 5889 Mar, [facility] [id number] [place] [address] 24872- 6639 Mar, Lesion of left shoulder 709.9 [facility] [address] [address]- 4763 Mar, [facility] [id number] [place] [address] 61981- 2684 Mar, [facility] [address] [address]- 7761 Mar, [facility] [address] [address]- 9162 Feb, [facility] [address] [address]- 2704 Feb, [facility] [id number] [place] [address] 32071- 9208 Feb, Unspecified backache 724.5 ; Weight gain 783.1 ; Hypothyroid 244.9 ; Edema 782.3 and Diaphoresis 780.8 [facility] [address] [address]- 5517 Feb, [facility] [place] [facility] [address] [id number] [place] [address]- 8590 10 Feb, 2015 [facility] [place] [facility] [address] [id number] [place] [address]- 9797 09 Feb, 2015 [facility] [place] [facility] [address] [id number] [place] [address]- 2095 04 Feb, 2015 [facility] [place] [facility] [address] [id number] [place] [address]- 6219 Feb, [facility] [place] [facility] [address] [id number] [place] [address]- 1302 January, [facility] [place] [facility] [address] [id number] [place] [address]- 3106 January, [facility] [place] [facility] [address] [id number] [place] [address]- 1487 14 Dec, 2014 [facility] [place] [facility] [address] [id number] [place] [address]- 4828 Dec, [facility] [place] [facility] [address] [id number] [place] [address]- 7293 16 Nov, 2014 [facility] [place] [facility] [address] [id number] [place] [address]- 4513 16 Nov, 2014 [facility] [place] [facility] [address] [id number] [place] [address]- 6672 16 Nov, 2014 [facility] [place] [facility] [address] [id number] [place] [address]- 5875 16 Nov, 2014 [facility] [place] [facility] [address] [id number] [place] [address]- 4093 16 Nov, 2014 [facility] [place] [facility] [address] [id number] [place] [address]- 7390 16 Nov, 2014 [facility] [place] [facility] [address] [id number] [place] [address]- 5758 12 Nov, 2014 [facility] [place] [facility] [address] [id number] [place] [address]- 4468 Nov, [facility] [place] [facility] [address] [id number] [place] [address]- 8745 Nov, [facility] [place] [facility] [address] [id number] [place] [address]- 7595 Nov, [facility] [place] [facility] [address] [id number] [place] [address]- 4535 Nov, [facility] [place] [facility] [address] [id number] [place] [address]- 0882 Nov, [facility] [place] [facility] [address] [id number] [place] [address]- 0009 Nov, [facility] [place] [facility] [address] [id number] [place] [address] Oct, [facility] [place] [facility] [address] [id number] [place] [address] Oct, [facility] [place] [facility] [address] [id number] [place] [address] Sep, [facility] [place] [facility] [address] [id number] [place] [address] Sep, [facility] [place] [facility] [address] [id number] [place] [address] Aug, [facility] [place] [facility] [address] [id number] [place] [address] Aug, [facility] [place] [facility] [address] [id number] [place] [address] Aug, [facility] [place] [facility] [address] [id number] [place] Aug, [facility] [place] [facility] [address] [id number] [place] Aug, [facility] [place] [facility] [address] [id number] [place] [address] Aug, [facility] [place] [facility] [address] [id number] [place] [address] Aug, [facility] [place] [facility] [address] [id number] [place] [address] Aug, [facility] [place] [facility] [address] [id number] [place] [address] Aug, [facility] [place] [facility] [address] [id number] [place] [address] Jul, [facility] [place] [facility] [address] [id number] [place] [address] Jul, [facility] [place] [facility] [address] [id number] [place] [address] Jul, [facility] [place] [facility] [address] [id number] [place] [address] Jul, [facility] [place] [facility] [address] [id number] [place] [address] Jul, [facility] [place] [facility] [address] [id number] [place] [address] Jul, [facility] [place] [facility] [address] [id number] [place] [address] Jul, [facility] [place] [facility] [address] [id number] [place] [address] Jul, [facility] [place] [facility] [address] [id number] [place] [address] Jul, [facility] [place] [facility] [address] [id number] [place] [address] Jul, [facility] [place] [facility] [address] [id number] [place] [address] Jun, [facility] [place] [facility] [address] [id number] [place] [address] 9[address] Jun, [facility] [place] [facility] [address] [id number] [address] Jun, [facility] [place] [facility] [address] [id number] [place] [address]- 1184 Jun, [facility] [place] [facility] [address] [id number] [place] [address] 9494 Jun, [facility] [place] [facility] [address] [id number] [place] [address]- 4499 Jun, [facility] [place] [facility] [address] [id number] [place] [address]- 2065 30 May, 2013 [facility] [place] [facility] [address] [id number] [place] [address] 3384 30 May, 2013 [facility] [place] [facility] [address] [id number] [place] [address]- 0484 29 May, 2013 [facility] [place] [facility] [address] [id number] [place] [address]- 6740 29 May, 2013 [facility] [place] [facility] [address] [id number] [place] [address]- 3872 24 May, 2013 [facility] [place] [facility] [address] [id number] [place] [address]- 4532 24 May, 2013 [facility] [place] [facility] [address] [id number] [place] [address]- 1922 22 May, 2013 [facility] [place] [facility] [address] [id number], [place] [address] May, 2013 [facility] [place] [facility] [address] [id number], [place] [address]- [address]40 05 Sep, 2013 [facility] [place] [facility] [address] [id number] [place] [address]- 2541 05 Sep, 2013 [facility] [place] [facility] [address] [id number] [place] [address]- 9703 May, 2013 [facility] [place] [facility] [address] [id number] [place] [address]- 2547 02 May, 2013 [facility] [place] [facility] [address] [id number] [place] [address]- 7389 Apr, [facility] [place] [facility] [address] [id number] [place] [address]- 3712 Apr, [facility] [place] [facility] [address] [id number] [place] [address]- 7327 Apr, [facility] [place] [facility] [address] [id number] [place] [address]- 5937 Apr, [facility] [place] [facility] [address] [id number] [place] [address]- 1756 Apr, [facility] [place] [facility] [address] [id number] [place] [address]- 2875 Apr, [facility] [place] [facility] [address] [id number] [place] [address]- 2281 Apr, [facility] [place] [facility] [address] [id number] [place] [address]- 4884 Apr, [facility] [place] [facility] [address] [id number] [place] [address]- 4415 Apr, [facility] [place] [facility] [address] [id number] [place] [address]- 0[address] Apr, [facility] [place] [facility] [address] [id number] [place] [address]- 3561 Apr, [facility] [place] [facility] [address] [id number] [place] [address]- 8904 Apr, [facility] [place] [facility] [address] [id number] [place] [address]- 7770 Apr, [facility] [place] [facility] [address] [id number] [place] [address]- 3343 Apr, [facility] [place] [facility] [address] [id number] [place] [address]- 8909 Apr, [facility] [place] [facility] [address] [id number] [place] [address]- 9337 Apr, [facility] [place] [facility] [address] [id number] [place] [address]- 5420 Apr, [facility] [place] [facility] [address] [id number] [place] [address]- 0359 Apr, [facility] [place] [facility] [address] [id number] [place] [address]- 2552 Apr, [facility] [place] [facility] [address] [id number] [place] [address]- 7529 Apr, [facility] [place] [facility] [address] [id number] [place] [address]- 1103 Apr, [facility] [place] [facility] [address] [id number] [place] [address]- 4739 Apr, [facility] [place] [facility] [address] [id number] [place] [address]- 3506 Apr, [facility] [place] [facility] [address] [id number] [place] [address]- 1547 Mar, [facility] [place] [facility] [address] [id number] [place] [address]- 2535 Mar, [facility] [place] [facility] [address] [id number] [place] [address]- 1690 Mar, [facility] [place] [facility] [address] [id number] [place] [address]- 1669 Mar, [facility] [place] [facility] [address] [id number] [place] [address]- 0229 Mar, [facility] [place] [facility] [address] [id number] [place] [address]- 2832 Mar, [facility] [place] [facility] [address] [id number] [place] [address]- 1232 Mar, [facility] [place] [facility] [address] [id number] [place] [address]- 9842 Mar, [facility] [place] [facility] [address] [id number] [place] [address]- 1204 Mar, [facility] [place] [facility] [address] [id number] [place] [address]- 4104 Mar, [facility] [place] [facility] [address] [id number] [place] [address]- 0545 Mar, [facility] [place] [facility] [address] [id number] [place] [address]- 7630 Mar, [facility] [place] [facility] [address] [id number] [place] [address]- 6452 Mar, [facility] [place] [facility] [address] [id number] [place] [address]- 0662 Mar, [facility] [place] [facility] [address] [id number] [place] [address]- 2350 Feb, [facility] [place] [facility] [address] [id number] [place] [address]- 6553 Feb, [facility] [place] [facility] [address] [id number] [place] [address]- 4311 Feb, [facility] [place] [facility] [address] [id number] [place] [address]- 6561 Feb, [facility] [place] [facility] [address] [id number] [place] [address]- 8789 Feb, [facility] [place] [facility] [address] [id number] [place] [address]- 0336 Feb, [facility] [place] [facility] [address] [id number] [place] [address]- 2398 Feb, [facility] [place] [facility] [address] [id number] [place] [address]- 5975 Feb, [facility] [place] [facility] [address] [id number] [place] [address]- 3197 Dec, [facility] [place] [facility] [address] [id number] [place] [address]- 5855 Dec, [facility] [place] [facility] [address] [id number] [place] [address]- 0377 Dec, [facility] [place] [facility] [address] [id number] [place] [address]- 7170 Dec, [facility] [place] [facility] [address] [id number] [place] [address]- 6820 Nov, [facility] [place] [facility] [address] [id number] [place] [address]- 6396 Nov, [facility] [place] [facility] [address] [id number] [place] [address]- 2145 Nov, [facility] [place] [facility] [address]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
--- OUTSIDE RECORDS SUMMARY | 2018-06-07 12:12 | XMS REPORT ---
Author Author ELISEO BENDER [facility] eClinicalWorks Address Unknown Phone Unavailable Care Team Providers Care Floor Framer Name Role Phone ELISEO BENDER CP Unavailable Allergies, Adverse Reactions, Alerts Substance Reaction Event Type Penicillin V Potassium anaphylaxis Drug Allergy Klonopin Makes her cry all the time Drug Allergy Problems Problem Type Condition Code Onset Dates Condition Status Problem Dysuria 788.1 Active Assessment Gastroesophageal reflux disease with esophagitis K21.0 Active Problem Unspecified myalgia and myositis 729.1 Active Assessment Family history of diabetes mellitus Z83.3 Active Problem Unspecified backache 724.5 Active Problem Restless legs syndrome [RLS] 333.94 Active Problem Special screening for malignant neoplasms, colon V76.51 Active Problem Lump or mass in breast 611.72 Active Problem Unspecified breast screening V76.10 Active Problem Other malaise and fatigue 780.79 Active Assessment Weight gain R63.5 Active Problem Hypertrophy of uterus 621.2 Active Assessment Edema, unspecified R60.9 Active Problem Cervicalgia 723.1 Active Problem Edema [...] Start Date End Date Status Dosage Lisinopril [facility] [address]-06 20 MG Orally Once a day 1 tablet Xanax [facility] [address]-58 0.25 MG November 15, 2014 1 tablet by Oral route 3 times per day PRN anxiety Omeprazole [facility] [address]-81 20 MG Orally Once a day Aug 20, 2015 1 capsules Celexa [facility] [address]-95 40 MG Jul 21, 2014 1 tablet by Oral route 1 time per day Tizanidine HCl [facility] [address]-91 4 MG Orally 3 times a day 1 tablet as needed Potassium Chloride ER [facility] [address]-14 20 MEQ Orally Once a day May 24, 2015 2 tabs Levothyroxine Sodium [facility] [id number] 25 MCG TAKE 1 TABLET ONE TIME DAILY Centrum Silver Adult 50+ [facility] [address]-00 Orally once a day one Gelatin [facility] [address]-43 650 MG Orally twice a day 2 capsules Alprazolam [facility] [id number] 0.25 MG TAKE ONE TABLET BY MOUTH THREE TIMES DAILY NEEDED FOR ANXIETY Bumetanide [facility] 32317322921 2 MG Orally Once a day 1 tablet Plaquenil [facility] [address]-57 200 MG Orally Twice a day 1 tablet with food or milk ibuprofen NDC 0 800 mg Oral 1 tab Calcium [facility] [address]-32848 600 MG Orally Twice a day 1 tablet with meals tramadol NDC 0 50 mg November 16, 2014 take 2 tablet by Oral route every 8 hours as needed mt Neurontin [facility] [address]-20 300 MG Orally Three times a day 1 capsule as needed Procedures Procedure Coding System Code Date [facility] VISIT ESTABLISHED PATIENT CPT-4 G0467 Aug 20, 2015 Office Visit, Est Pt., Level 3 CPT-4 43234 Aug 20, 2015 GLYCATED HEMOGLOBIN TEST CPT-4 13856 Aug 20, 2015 URINALYSIS, AUTO, W/O SCOPE CPT-4 33290 Aug 20, 2015 Vital Signs Date/Time: Aug 20, 2015 Temperature 98.0 F Weight 221.7 lbs Height 68 in BMI 33.71 Index Blood Pressure Diastolic 92 mmHg Blood Pressure Systolic 150 mmHg Cardiac Monitoring Heart Rate 88 bpm Results Name Result Date Reference Range Unit Abnormality Flag UA W/CULTURE IF INDICATED (IN HOUSE) ----ASHLEY Trace 20150820 ----NIT negative 20150820 ----Exp date 20150820 ----Lot # [id number] ----SG <1=1.005 20150820 ----KET negative 20150820 ----BRITTNEY negative 20150820 ----GLU negative 20150820 ----Odor no 20150820 ----pH 5.5 20150820 ----BLO Trace-intact 20150820 ----URO 0.2E.U./dL 20150820 ----Protein negative 20150820 ----Lot # [id number] ----Exp date 20150820 ----Clarity clear 20150820 ----Color yellow 20150820 Summary Purpose eClinicalWorks Submission
--- OUTSIDE RECORDS SUMMARY | 2018-06-07 12:12 | XMS REPORT ---
Author Author ELISEO BENDER Organization e[employer] Address Unknown Phone Unavailable Care Team Providers Care Security Systems Specialist Name Role Phone ELISEO BENDER CP [...]
--- OUTSIDE RECORDS SUMMARY | 2018-06-07 12:12 | XMS REPORT ---
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 Name Role Phone ELISEO BENDER Unavailable PROBLEMS Type Condition ICD9-CM Code FUV16-GS Code Onset Dates Condition Status SNOMED Code Problem Rheumatoid arthritis, involving unspecified site, unspecified rheumatoid factor presence M06.9 Active 27734559 Problem Anxiety F41.9 Active 92572767 Problem Chest pain, unspecified type R07.9 Active 20699150 Problem BMI 30.0-30.9,adult Z68.30 Active 004405130 Problem BMI 31.0-31.9,adult Z68.31 Active 334769116 Problem Postoperative hypothyroidism E89.0 Active 10104596 Problem Depression, unspecified depression type F32.9 Active 04586260 Problem Other atopic dermatitis L20.89 Active 99079536 Problem Thyroid cancer C73 Active 784126955 Problem Low back pain, unspecified back pain laterality, with sciatica presence unspecified M54.5 Active 437940446 Problem Gastro-esophageal reflux disease without esophagitis K21.9 Active 106700895 Problem Other chronic pain G89.29 Active 22264647 Problem Neuropathy G62.9 Active 972703379 Problem Dysthymia F34.1 Active 63426581 Problem Hyperinsulinemia E16.1 Active 47127114 Problem Insomnia G47.00 Active 196654327 ALLERGIES No Information ENCOUNTERS Encounter Location Date Diagnosis [facility] [address] [facility] [id number] [address] Mar, [facility] [id number] [address] January, BMI 30.0-30.9,adult Z68.30 [facility] [id number] [address] January, Low back pain, unspecified back pain laterality, with sciatica presence unspecified M54.5 [facility] [id number] [place] [address] 48219- 1053 14 Jan, 2018 [facility] [id number] [place] [address] 23687- 2918 Dec, Low back pain, unspecified back pain laterality, with sciatica presence unspecified M54.5 [place] [id number] [place] [address] 73077- 5996 Nov, Low back pain, unspecified back pain laterality, with sciatica presence unspecified M54.5 [place] [address] 28440- 5615 Nov, [place] [id number] [place] [address] 50149- 4807 Nov, Low back pain, unspecified back pain laterality, with sciatica presence unspecified M54.5 ; Other chronic pain G89.29 ; Rheumatoid arthritis, involving unspecified site, unspecified rheumatoid factor presence M06.9 and Dysthymia F34.1 [place] [id number] [place] [address] 22890- 6354 Oct, Low back pain, unspecified back pain laterality, with sciatica presence unspecified M54.5 [place] [id number] [place] [address] 46169- 8189 Sep, Low back pain, unspecified back pain laterality, with sciatica presence unspecified M54.5 [facility] [id number] [place] [address] 40271 -9746 Sep, Fever R50.9 and URI, acute J06.9 [facility] [id number] [place] [address] 49436- 4131 Aug, [facility] [id number] [place] [address] 45159- 9249 Aug, Low back pain, unspecified back pain laterality, with sciatica presence unspecified M54.5 [facility] [id number] [place] [address] 27463- 6007 Jul, Low back pain, unspecified back pain laterality, with sciatica presence unspecified M54.5 [facility] [id number] [place] [address] 27118 -0765 15 Jul, 2017 Nausea R11.0 ; Fever and chills R50.9 ; UTI symptoms R39.9 and Hematuria, unspecified type R31.9 [facility] [id number] [place] [address] 77026- 1686 Jul, [facility] [id number] [place] [address] 21399- 0067 Jun, Low back pain, unspecified back pain laterality, with sciatica presence unspecified M54.5 [place] [address] 50903- 0098 Jun, BMI 31.0-31.9,adult Z68.31 [facility] [id number] [place] [address] 41079- 0469 Jun, Neuropathy G62.9 [place] [id number] [place] [address] 05845- 7596 Jun, Low back pain, unspecified back pain laterality, with sciatica presence unspecified M54.5 [facility] [id number] [place] [address] 02979- 3231 Jun, Encounter for immunization Z23 [facility] [id number] [place] [address] 45728- 6733 Jun, BMI 31.0-31.9,adult Z68.31 [facility] [id number] [place] [address] 29807- 3113 Jun, Low back pain, unspecified back pain laterality, with sciatica presence unspecified M54.5 [place] [id number] [place] [address] 86051- 3851 May, Low back pain, unspecified back pain laterality, with sciatica presence unspecified M54.5 ; Other chronic pain G89.29 ; Plantar fasciitis M72.2 ; Rheumatoid arthritis, involving unspecified site, unspecified rheumatoid factor presence M06.9 and History of alcohol abuse Z87.898 [place] [id number] [place] [address] 70926- 7724 May, Anxiety F41.9 and Low back pain, unspecified back pain laterality, with sciatica presence unspecified M54.5 [place] [address] 83867- 7475 Apr, Anxiety F41.9 and Low back pain, unspecified back pain laterality, with sciatica presence unspecified M54.5 [place] [address] 60199- 3980 18 Mar, 2017 Acute right-sided low back pain without sciatica M54.5 ; Rash R21 ; Right flank pain R10.9 ; Lipid screening Z13.220 ; Other chronic pain G89.29 ; Hyperinsulinemia E16.1 ; Postoperative hypothyroidism E89.0 and Breast cancer screening Z12.39 [place] [address] 42259- 9904 14 Mar, 2017 Anxiety F41.9 and Low back pain, unspecified back pain laterality, with sciatica presence unspecified M54.5 [place] [id number] [place] [address] 83799- 7255 13 Mar, 2017 Acute right-sided low back pain without sciatica M54.5 [place] [id number] [place] [address] 25371- 1028 Mar, Anxiety F41.9 [place] [address] 86055- 2351 28 Feb, 2017 Right flank pain R10.9 and Anxiety F41.9 [place] [address] 11999- 5538 Feb, BMI 31.0-31.9,adult Z68.31 [place] [address] 54839- 0832 Feb, Low back pain, unspecified back pain laterality, with sciatica presence unspecified M54.5 and Anxiety F41.9 [facility] [address] [address]75 [address] January, Abscess of toe of right foot L02.611 and Other atopic dermatitis L20.89 [place] [address] 33250- 7692 January, Low back pain, unspecified back pain laterality, with sciatica presence unspecified M54.5 and Anxiety F41.9 [place] [address] 83144- 5620 Dec, Anxiety F41.9 and Low back pain, unspecified back pain laterality, with sciatica presence unspecified M54.5 [facility] [place] [address] 80359 -5381 Dec, Scabies B86 [place] [address] 65483- 3007 Nov, Rash R21 ; Other chronic pain G89.29 ; Hyperinsulinemia E16.1 ; Postoperative hypothyroidism E89.0 ; Breast cancer screening Z12.39 and Lipid screening Z13.220 [place] [address] 58402- 4330 Nov, Anxiety F41.9 and Low back pain, unspecified back pain laterality, with sciatica presence unspecified M54.5 [place] [address] 42816- 3160 Oct, Anxiety F41.9 and Low back pain, unspecified back pain laterality, with sciatica presence unspecified M54.5 [place] [address] 46927- 8763 Sep, Anxiety F41.9 and Low back pain, unspecified back pain laterality, with sciatica presence unspecified M54.5 [facility] [address] 59651- 5586 Sep, Anxiety F41.9 [facility] [id number] [place] [address] 80656- 7576 Sep, Gastro-esophageal reflux disease without esophagitis K21.9 [facility] [address] [id number] Sep, Dental examination Z01.20 [facility] [address] 24561- 8860 Sep, Low back pain, unspecified back pain laterality, with sciatica presence unspecified M54.5 and Postoperative hypothyroidism E89.0 [place] [address] 53268- 0910 Aug, Anxiety F41.9 [facility] [address] 89486- 2919 Aug, [facility] [address] 27261- 7484 Aug, Low back pain, unspecified back pain laterality, with sciatica presence unspecified M54.5 ; Other chronic pain G89.29 ; Thyroid cancer C73 and Postoperative hypothyroidism E89.0 [facility] [address] 31093- 2425 Jul, [facility] [address] 22031- 1860 Jul, Anxiety F41.9 [facility] [address] 24808- 9447 Jul, [facility] [address] 43604- 4990 Jul, BMI 29.0-29.9,adult Z68.29 [facility] [id number] [place] [address] 99979- 8800 Jul, [place] [address] 56614- 2577 Jul, BMI 30.0-30.9,adult Z68.30 [place] [address] 02334- 2773 Jul, Low back pain, unspecified back pain laterality, with sciatica presence unspecified M54.5 and Anxiety F41.9 [place] [address] 38347- 9273 Jun, Hyperinsulinemia E16.1 [place] [address] 32871- 1617 Jun, BMI 30.0-30.9,adult Z68.30 [place] [address] 08622- 6505 Jun, [place] [address] 29957- 9409 Jun, Hyperinsulinemia E16.1 ; Dysthymia F34.1 ; Encounter for immunization Z23 and Other chronic pain G89.29 [place] [address] 12980- 4392 Jun, Low back pain, unspecified back pain laterality, with sciatica presence unspecified M54.5 [place] [address] 41054- 5208 Jun, BMI 30.0-30.9,adult Z68.30 [place] [address] 18623- 4983 Jun, Anxiety F41.9 [place] [address] 85886- 4017 May, Hyperinsulinemia E16.1 [place] [address] 65891- 4429 May, Constipation, unspecified constipation type K59.00 [place] [id number] [place] [address] 30121- 5039 May, Low back pain, unspecified back pain laterality, with sciatica presence unspecified M54.5 [place] [address] 54519- 7523 May, [place] [address] 36600- 4977 May, Constipation, unspecified constipation type K59.00 [place] [address] 19736- 8537 May, Anxiety F41.9 [place] [address] 34845- 1939 Apr, BMI 31.0-31.9,adult Z68.31 [place] [address] 40944- 3736 Apr, Thyroid goiter E04.9 [place] [address] 30083- 3549 Apr, [place] [address] 72504- 5998 Apr, Low back pain, unspecified back pain laterality, with sciatica presence unspecified M54.5 [place] [id number] [place] [address] 71403- 7009 Apr, [place] [id number] [place] [address] 04676- 8264 Apr, Constipation, unspecified constipation type K59.00 ; Thyroid nodule E04.1 ; Family history of colon cancer Z80.0 and Hyperinsulinemia E16.1 [place] [id number] [place] [address] 09879- 4587 Apr, Anxiety F41.9 [place] [address] 77133- 0011 Mar, [facility] [id number] [place] [address] 44628- 0377 Mar, Low back pain, unspecified back pain laterality, with sciatica presence unspecified M54.5 [facility] [id number] [place] [address] 04509- 7289 Mar, BMI 32.0-32.9,adult Z68.32 [place] [address] 57278- 4685 Feb, Anxiety F41.9 [place] [address] 89380- 4575 Feb, Depression, unspecified depression type F32.9 [place] [id number] [place] [address] 75243- 0664 Feb, BMI 32.0-32.9,adult Z68.32 [place] [id number] [place] [address] 86392- 4680 Feb, Low back pain, unspecified back pain laterality, with sciatica presence unspecified M54.5 [place] [id number] [place] [address] 42101- 5360 Feb, [place] [id number] [place] [address] 20262- 8934 Feb, BMI 32.0-32.9,adult Z68.32 [place] [id number] [place] [address] 65579- 0030 Feb, Anxiety F41.9 [facility] [id number] [place] [address] 73302- 3971 January, BMI 32.0-32.9,adult Z68.32 [place] [id number] [place] [address] 27010- 1743 January, Low back pain, unspecified back pain laterality, with sciatica presence unspecified M54.5 ; Other chronic pain G89.29 ; Weight gain R63.5 and Rheumatoid arthritis, involving unspecified site, unspecified rheumatoid factor presence M06.9 [place] [address] 88791- 8834 January, Low back pain, unspecified back pain laterality, with sciatica presence unspecified M54.5 [place] [address] 63415- 1099 January, BMI 32.0-32.9,adult Z68.32 [place] [address] 34324- 3330 January, BMI 32.0-32.9,adult Z68.32 [place] [address] 22440- 2434 January, BMI 32.0-32.9,adult Z68.32 [place] [address] 81969- 4998 Dec, Insomnia G47.00 and Dysthymia F34.1 [place] [address] 11367- 5709 Dec, [place] [address] 55035- 7094 Dec, Other chronic pain G89.29 ; Neuropathy G62.9 and Dysthymia F34.1 [place] [id number] [place] [address] 42737- 5195 Dec, [place] [id number] [place] [address] 68499- 7319 Nov, [place] [address] 55780- 6612 Nov, [place] [address] 20810- 6027 Nov, [place] [address] 72712- 9159 Oct, [facility] [id number] [place] [address] 46820- 5929 Oct, [facility] [id number] [place] [address] 59189- 9570 Oct, Family history of diabetes mellitus Z83.3 [facility] [id number] [place] [address] 67393- 9361 Oct, [facility] [id number] [place] [address] 08238- 4309 Sep, [facility] [id number] [place] [address] 01999- 9398 Sep, Eye pain, right H57.11 and Other chronic pain G89.29 [place] [id number] [place] [address] 26432- 1916 Sep, [facility] [id number] [place] [address] 05835- 1618 Sep, [facility] [id number] [place] [address] 54779- 2450 Sep, Hyperinsulinemia E16.1 ; Neuropathy G62.9 ; Low back pain, unspecified back pain laterality, with sciatica presence unspecified M54.5 ; Gastro-esophageal reflux disease without esophagitis K21.9 and Encounter for long-term (current) use of other medications V58.69 [facility] [id number] [place] [address] 10938- 6093 Sep, [facility] [id number] [place] [address] 87298- 6067 Sep, [facility] [id number] [place] [address] 75383- 2636 Sep, [facility] [id number] [place] [address] 07602- 1514 Sep, [facility] [address] [place] [address]- 7273 Aug, [facility] [id number] [place] [address] 61823- 4048 Aug, Family history of diabetes mellitus Z83.3 [facility] [id number] [place] [address] 24742- 5163 Aug, [place] [id number] [place] [address] 56283- 6551 Aug, [facility] [id number] [place] [address] 01109- 5988 16 Aug, 2015 Family history of diabetes mellitus Z83.3 [place] [id number] [place] [address] 22771- 7121 14 Aug, 2015 Weight gain R63.5 ; Edema, unspecified R60.9 ; Family history of diabetes mellitus Z83.3 and Gastroesophageal reflux disease with esophagitis K21.0 [place] [id number] [place] [address] 22551- 2302 14 Aug, 2015 [place] [id number] [place] [address] 10252- 8949 Aug, [place] [id number] [place] [address] 35803- 4136 Jul, [place] [id number] [place] [address] 32810- 9367 Jul, [place] [id number] [place] [address] 39032- 0218 Jul, [facility] [id number] [place] [address] 87635- 6680 Jun, [place] [id number] [place] [address] 74072- 8759 Jun, Nose pain J34.89 ; Encounter for immunization Z23 ; Screening for breast cancer Z12.39 and Encounter for long-term (current) use of other medications V58.69 [place] [address] [facility] [id number] [place] [address]- 1340 06 Jun, 2014 [facility] [address] [id number] [place] [address]- 8108 23 May, 2014 [facility] [place] [facility] [address] [id number] [place] [address]- 1939 18 May, 2014 [facility] [place] [facility] [address] [id number] [place] [address]- 0594 17 May, 2014 [facility] [place] [facility] [address] [id number] [place] [address]- 6883 17 May, 2014 [facility] [place] [facility] [address] [id number] [place] [address]- 2590 10 May, 2014 [facility] [place] [facility] [address] [facility] [id number] [place] [address]- 7219 May, 2014 [facility] [place] [facility] [address] [id number] [place] [address]- 3953 May, 2014 [facility] [address] [id number] [place] [address]- 8304 Apr, [facility] [place] [facility] [address] [facility] [id number] [place] [address]- 8524 Apr, [facility] [address] [facility] [id number] [place] [address]- 5715 Apr, [facility] [place] [facility] [address] [id number] [place] [address]- 1890 Mar, [facility] [place] [facility] [address] [id number] [place] [address]- 5153 Mar, [facility] [place] [facility] [address] [facility] [id number] [place] [address]- 5324 Mar, Lesion of left shoulder 709.9 [facility] [place] [facility] [address] [id number] [place] [address]- 9825 Mar, [facility] [place] [facility] [address] [facility] [id number] [address]- 1812 Mar, [facility] [id number] [address]- 7210 Mar, [facility] [address] [address]- 6712 Feb, [facility] [id number] [place] [address] 28455- 1244 Feb, [facility] [id number] [place] [address] 78397- 7307 Feb, Unspecified backache 724.5 ; Weight gain 783.1 ; Hypothyroid 244.9 ; Edema 782.3 and Diaphoresis 780.8 [facility] [id number] [address]- 0576 Feb, [facility] [id number] [place] [address] 17798- 8644 Feb, [facility] [id number] [address]- 7879 Feb, [facility] [id number] [address]- 9609 Feb, [facility] [id number] [address]- 3604 Feb, [facility] [id number] [address]- 7829 January, [facility] [id number] [address]- 7505 January, [facility] [id number] [address]- 7547 14 Dec, 2014 [facility] [id number] [address]- 0151 Dec, [facility] [address] [address]- 5072 16 Nov, 2014 [facility] [place] [facility] [address] [id number] [place] [address]- 3062 16 Nov, 2014 [facility] [place] [facility] [address] [id number] [place] [address]- 1038 16 Nov, 2014 [facility] [place] [facility] [address] [id number] [place] [address]- 1076 16 Nov, 2014 [facility] [place] [facility] [address] [id number] [place] [address]- 2973 16 Nov, 2014 [facility] [place] [facility] [address] [id number] [place] [address]- 1879 16 Nov, 2014 [facility] [place] [facility] [address] [id number] [place] [address] Nov, [facility] [place] [facility] [address] [id number] [place] [address] Nov, [facility] [place] [facility] [address] [id number] [place] [address] Nov, [facility] [place] [facility] [address] [id number] [place] [address] Nov, [facility] [place] [facility] [address] [id number] [place] [address] 05 Nov, 2014 [facility] [place] [facility] [address] [id number] [place] [address] Nov, [facility] [place] [facility] [address] [id number] [place] [address] 04 Nov, 2014 [facility] [place] [facility] [address] [id number] [place] [address] Oct, [facility] [place] [facility] [address] [id number] [place] [address] Oct, [facility] [place] [facility] [address] [id number] [place] [address] Sep, [facility] [place] [facility] [address] [id number] [place] [address] Sep, [facility] [place] [facility] [address] [id number] [place] [address] Aug, [facility] [place] [facility] [address] [id number] [place] [address] Aug, [facility] [place] [facility] [address] [id number] [place] [address] Aug, [facility] [place] [facility] [address] [id number] [place] [address] Aug, [facility] [place] [facility] [address] [id number] [place] [address] Aug, [facility] [place] [facility] [address] [id number] [place] [address] Aug, [facility] [place] [facility] [address] [id number] [place] [address] Aug, [facility] [place] [facility] [address] [id number] [place] [address] Aug, [facility] [place] [facility] [address] [id number] [place] [address] Aug, [facility] [place] [facility] [address] [id number] [place] [address] Jul, [facility] [place] [facility] [address] [id number] [place] [address] Jul, [facility] [place] [facility] [address] [id number] [place] [address] Jul, [facility] [place] [facility] [address] [id number] [place] [address] Jul, [facility] [facility] [address] [id number] [place] [address] Jul, [facility] [place] [facility] [address] [id number] [place] [address] Jul, [facility] [place] [facility] [address] [id number] [place] [address] 6118 Jul, [facility] [place] [facility] [address] [id number] [place] [address] 1767 Jul, [facility] [place] [facility] [address] [id number] [place] [address] 0839 Jul, [facility] [place] [facility] [address] [id number] [place] [address] 3416 Jul, [facility] [place] [facility] [address] [id number] [place] [address] 4[address] Jun, [facility] [place] [facility] [address] [id number] [place] [address] 5970 Jun, [facility] [place] [facility] [address] [id number] [place] [address] 1814 Jun, [facility] [place] [facility] [address] [id number] [place] [address]- 1990 Jun, [facility] [place] [facility] [address] [id number] [place] [address] 57[address] Jun, [facility] [place] [facility] [address] [id number] [place] [address]- 7276 Jun, [facility] [place] [facility] [address] [id number] [place] [address]- 5726 30 May, 2014 [facility] [place] [facility] [address] [id number] [place] [address]- 2540 30 May, 2013 [facility] [place] [facility] [address] [id number] [place] [address]- 2542 29 May, 2013 [facility] [place] [facility] [address] [id number] [place] [address] 2541 29 May, 2013 [facility] [place] [facility] [address] [id number] [place] [address]- 2548 24 May, 2013 [facility] [place] [facility] [address] [id number] [place] [address] 2546 May, 2013 [facility] [place] [facility] [address] [id number] [place] [address]- 8622 May, 2013 [facility] [place] [facility] [address] [id number] [place] [address]- 5376 May, 2013 [facility] [place] [facility] [address] [id number] [place] [address]- 6809 May, 2013 [facility] [place] [facility] [address] [id number] [place] [address]- 9445 May, 2013 [facility] [place] [facility] [address] [id number] [place] [address]- 0868 May, [facility] [place] [facility] [address] [id number] [place] [address]- 1682 May, [facility] [place] [facility] [address] [id number] [place] [address]- 8100 Apr, [facility] [place] [facility] [address] [id number] [place] [address]- 4[address] Apr, [facility] [place] [facility] [address] [id number] [place] [address]- 3080 Apr, [facility] [place] [address] [id number] [place] [address]- 5279 Apr, [facility] [place] [address] [id number] [place] [address]- 6514 Apr, [facility] [place] [address] [id number] [place] [address]- 2002 Apr, [facility] [address] [id number] [place] [address]- 9069 Apr, [facility] [place] [address] [id number] [place] [address]- 0129 Apr, [facility] [place] [address] [id number] [place] [address]- 2732 Apr, [facility] [address] [id number] [place] [address]- 9257 Apr, [facility] [place] [address] [id number] [place] [address]- 1166 Apr, [facility] [place] [address] [id number] [place] [address]- 4473 Apr, [facility] [address] [id number] [place] [address]- 2477 Apr, [facility] [place] [facility] [address] [id number] [place] [address]- 7813 Apr, [facility] [place] [facility] [address] [id number] [place] [address]- 4009 Apr, [facility] [address] [id number] [place] [address]- 4715 Apr, [facility] [place] [facility] [address] [id number] [place] [address]- 9628 Apr, [facility] [place] [address] [id number] [place] [address]- 6125 Apr, [facility] [address] [id number] [place] [address]- 1801 Apr, [facility] [address] [id number] [place] [address]- 6813 Apr, [facility] [address] [id number] [place] [address]- 3556 Apr, [facility] [address] [id number] [place] [address]- 8858 Apr, [facility] [address] [id number] [place] [address]- 8405 Apr, [facility] [address] [id number] [place] [address]- 7271 Mar, [facility] [address] [id number] [place] [address]- 3075 Mar, [facility] [address] [id number] [place] [address]- 8893 30 Mar, 2014 [facility] [address] [id number] [place] [address]- 9988 30 Mar, 2014 [facility] [address] [id number] [place] [address]- 9446 Mar, [facility] [address] [id number] [place] [address]- 7307 Mar, [facility] [place] [address] [id number] [place] [address]- 4041 Mar, [facility] [address] [id number] [place] [address]- 0032 Mar, [facility] [address] [id number] [place] [address]- 1173 Mar, [facility] [address] [id number] [place] [address]- 2905 Mar, [facility] [address] [id number] [place] [address]- 1401 Mar, [facility] [address] [id number] [place] [address]- 4646 Mar, [facility] [address] [id number] [place] [address]- 2647 Mar, [facility] [address] [id number] [place] [address]- 7320 Mar, [facility] [address] [id number] [place] [address]- 4718 Feb, [facility] [address] [id number] [place] [address]- 2319 Feb, [facility] [address] [id number] [place] [address]- 8984 Feb, [facility] [address] [id number] [place] [address]- 5346 Feb, [facility] [address] [id number] [place] [address]- 3648 Feb, [facility] [address] [id number] [place] [address]- 9742 Feb, [facility] [address] [id number] [place] [address]- 4043 Feb, [facility] [address] [id number] [place] [address]- 8024 Feb, [facility] [address] [id number] [place] [address]- 5633 Dec, [facility] [address] [id number] [place] [address]- 4465 Dec, [facility] [address] [id number] [place] [address]- 5730 Dec, [facility] [address] [id number] [place] [address]- 7144 Dec, [facility] [address] [id number] [place] [address]- 7679 Nov, [facility] [address] [id number] [place] [address]- 0222 Nov, [facility] [address] [id number] [place] [address]- 8146 Nov, [facility] [address] [id number] [place] [address]- 5663 Nov, [facility] [address] [id number] [place] [address]- 6075 Nov, [facility] [address] [id number] [place] [address]- 3775 Nov, [facility] [address] [id number] [place] [address]- 0802 Nov, [facility] [address] [id number] [place] [address]- 4525 Oct, [facility] [address] [id number] [place] [address]- 8996 Oct, [facility]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
--- OUTSIDE RECORDS SUMMARY | 2018-06-07 12:12 | XMS REPORT ---
Author Author ELISEO BENDER Organization [employer] Address Unknown Phone Unavailable Care Team Providers Care Chiller Operator Name Role Phone ELISEO BENDER CP [...] and idiopathic peripheral neuropathy 356.9 Active Assessment Anxiety F41.9 Active Problem Unspecified backache 724.5 Active Problem Other malaise and fatigue 780.79 Active Problem Gastro-esophageal reflux disease without esophagitis K21.9 Active Medications Medication Code System Code Instructions Start Date End Date Status Dosage Alprazolam [facility] [address]-00 0.25 MG Orally 2 times a day 1 tablet Results No Known Results Summary Purpose [employer] Submission
--- OUTSIDE RECORDS SUMMARY | 2018-06-07 12:12 | XMS REPORT ---
Author Author ELISEO BENDER [facility] Address [address] [place] [address] Care Team Providers Care Bulk Station Agent Name Role Phone ELISEO BENDER Unavailable PROBLEMS Type Condition ICD9-CM Code [id number] Code Onset Dates Condition Status SNOMED Code Problem Dysthymia F34.1 Active 00302412 Problem Rheumatoid arthritis, involving unspecified site, unspecified rheumatoid factor presence M06.9 Active 93159812 Problem Insomnia G47.00 Active 532278974 Problem Thyroid cancer C73 Active 285726560 Problem Postoperative hypothyroidism E89.0 Active 57192881 Problem Anxiety F41.9 Active 32940301 Problem Chest pain, unspecified type R07.9 Active 11125195 Problem BMI 30.0-30.9,adult Z68.30 Active 590354574 Problem Depression, unspecified depression type F32.9 Active 38124707 Problem Rheumatoid arthritis 714.0 Active 48090681 Problem Unspecified hereditary and idiopathic peripheral neuropathy 356.9 Active 228335600 Assessment Low back pain, unspecified back pain laterality, with sciatica presence unspecified M54.5 Aug, Active 774980909 Problem Other malaise and fatigue 780.79 Active 255147253 Problem Low back pain, unspecified back pain laterality, with sciatica presence unspecified M54.5 Active 590796743 Problem Neuropathy G62.9 Active 956065398 Problem Unspecified backache 724.5 Active 040689330 Problem Hyperinsulinemia E16.1 Active 75078988 Problem Gastro-esophageal reflux disease without esophagitis K21.9 Active 910386812 Problem Other chronic pain G89.29 Active 61189162 ALLERGIES Substance Reaction Event Type Date Status Penicillin V Potassium anaphylaxis Drug Allergy Aug, Active Klonopin Makes her cry all the time Drug Allergy Aug, Active SOCIAL HISTORY No smoking Hx information available PLAN OF CARE VITAL SIGNS Height 68 in 2016-08-11 Weight 203.6 lbs 2016-08-11 Heart Rate 80 bpm 2016-08-11 Respiratory Rate 18 2016-08-11 BMI 30.95 kg/m2 2016-08-11 Blood pressure systolic 124 mmHg 2016-08-11 Blood pressure diastolic 80 mmHg 2016-08-11 MEDICATIONS Medication Instructions Dosage Frequency Start Date End Date Duration Status Lisinopril 20 MG TAKE 1 TABLET ONE TIME DAILY 90 Active Alprazolam 0.25 MG Orally 2 times a day 1 tablet 12h 28 days Active Tizanidine HCl 4 MG Orally 3 times a day 1 tablet as needed 8h Active Trazodone HCl 100 MG Orally Once a day 1 tablet at bedtime 24h January, 90 days Active Levothyroxine Sodium 100 MCG Orally Once a day 1 tablet on an empty stomach in the morning 24h Active Neurontin 300 MG Orally in AM and noon and 2 at hs 1 capsule Active Hydrocodone-Acetaminophen 5-325 MG Orally 2 times a day 1 tablet 12h AugSep, 28 days Active Bumetanide 2 MG Orally Once a day 1 tablet 24h 90 Active MetFORMIN HCl ER 500 MG Orally 2 times a day 1 tablet with meals 12h Aug 90 days Active Gelatin 650 MG Orally twice a day 2 capsules 12h Active Blood Glucose Meter 1 glucometer Verio One Touch Once a day test blood sugar 24h Apr, Active Test strips ... Verio One Touch Once a day as directed 24h Apr, Active Centrum Silver Adult 50+ Orally once a day one 24h Active Omeprazole 20 MG TAKE 1 CAPSULE EVERY DAY 90 Active Ibuprofen 800 MG Orally 2 times a day 1 tablet 12h Dec, Active Calcium 600 MG Orally Twice a day 3 tablets with meals 12h Active Potassium Chloride Marie ER 20 MEQ Orally Once a day 2 tablets 24h 90 days Active Plaquenil 200 MG Orally Twice a day 1 tablet with food or milk 12h Active Celexa 20 mg Orally Once a day 1 tablet 24h 14 Jul, 2014 90 days Active RESULTS Name Result Date Reference Range AMERITOX 2016-08-11 PROCEDURES Procedure Date Ordered Related Diagnosis Body Site No Charge Aug 11, 2016 [facility] VISIT ESTABLISHED PATIENT Aug 11, 2016 Office Visit, Est Pt., Level 3 Aug 11, 2016 IMMUNIZATIONS No Known Immunizations
--- OUTSIDE RECORDS SUMMARY | 2018-06-07 12:12 | XMS REPORT ---
Author Author JARET OZUNA [employer] Address Unknown Phone Unavailable Care Team Providers Care Continuous Drier Helper Name Role Phone JARET OZUNA CP Unavailable [...] unspecified rheumatoid factor presence M06.9 Active Assessment BMI 29.0-29.9,adult Z68.29 Active Problem Unspecified hereditary and idiopathic peripheral neuropathy 356.9 Active Problem Unspecified backache 724.5 Active Problem Other malaise and fatigue 780.79 Active Problem Gastro-esophageal reflux disease without esophagitis K21.9 Active Problem Rheumatoid arthritis 714.0 Active Problem Low back pain, unspecified back pain laterality, with sciatica presence unspecified M54.5 Active Medications No Known Medications Procedures Procedure Coding System Code Date No Charge CPT-4 [id number] Jul 25, 2016 Vital Signs Date/Time: Jul 25, 2016 Cardiac Monitoring Heart Rate 80 bpm Weight 196.3 lbs Height 68 in BMI 29.84 Index Blood Pressure Diastolic 82 mmHg Blood Pressure Systolic 134 mmHg Results No Known Results Summary Purpose [employer] Submission
--- OUTSIDE RECORDS SUMMARY | 2018-06-07 12:14 | XMS REPORT ---
Author Author ELISEO BENDER Organization [employer] Address Unknown Phone Unavailable Care Team Providers Care Executive Community Planning Name Role Phone ELISEO BENDER CP Unavailable [...] Instructions Start Date End Date Status Dosage Test strips NDC 0 ... Verio One Touch Once a day Apr 14, 2016 as directed Blood Glucose Meter NDC 0 1 glucometer Verio One Touch Once a day Apr 14, 2016 test blood sugar Results No Known Results Summary Purpose [employer] Submission
--- OUTSIDE RECORDS SUMMARY | 2018-06-07 12:14 | XMS REPORT ---
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 Name Role Phone ELISEO BENDER Unavailable PROBLEMS Type Condition ICD9-CM Code VFX35-HB Code Onset Dates Condition Status SNOMED Code Problem Insomnia G47.00 Active 647892959 Problem Chest pain, unspecified type R07.9 Active 66208321 Problem Rheumatoid arthritis, involving unspecified site, unspecified rheumatoid factor presence M06.9 Active 58613086 Problem BMI 31.0-31.9,adult Z68.31 Active 213360673 Problem Other atopic dermatitis L20.89 Active 22535518 Problem Depression, unspecified depression type F32.9 Active 78098013 Problem Anxiety F41.9 Active 63618047 Problem Thyroid cancer C73 Active 538130377 Problem Postoperative hypothyroidism E89.0 Active 46494879 Problem Hyperinsulinemia E16.1 Active 07209067 Problem Gastro-esophageal reflux disease without esophagitis K21.9 Active 976684445 Problem Low back pain, unspecified back pain laterality, with sciatica presence unspecified M54.5 Active 545721959 Problem Other chronic pain G89.29 Active 11647413 Problem Neuropathy G62.9 Active 520309988 Problem Dysthymia F34.1 Active 95363602 ALLERGIES Substance Reaction Event Type Date Status Penicillin V Potassium anaphylaxis Drug Allergy Feb, Active Klonopin Makes her cry all the time Drug Allergy Feb, Active ENCOUNTERS Encounter Location Date Diagnosis [facility] [address] [facility] [id number] [address] Dec, [facility] [address] [id number] [address] Nov, Low back pain, unspecified back pain laterality, with sciatica presence unspecified M54.5 [facility] [id number] [place] [address] 77987- 5972 Nov, [place] [address] [address]- [address] Nov, Low back pain, unspecified back pain laterality, with sciatica presence unspecified M54.5 ; Other chronic pain G89.29 ; Rheumatoid arthritis, involving unspecified site, unspecified rheumatoid factor presence M06.9 and Dysthymia F34.1 [place] [address] [address]- [address] Oct, Low back pain, unspecified back pain laterality, with sciatica presence unspecified M54.5 [place] [address] 03104- 1674 Sep, Low back pain, unspecified back pain laterality, with sciatica presence unspecified M54.5 [facility] [address] [address] Sep, Fever R50.9 and URI, acute J06.9 [place] [address] 59294- 5546 Aug, [place] [address] 41032- 3662 Aug, Low back pain, unspecified back pain laterality, with sciatica presence unspecified M54.5 [place] [id number] [place] [address] 20575- 0398 Jul, Low back pain, unspecified back pain laterality, with sciatica presence unspecified M54.5 [facility] [id number] [place] [address] 00843 -1775 Jul, Nausea R11.0 ; Fever and chills R50.9 ; UTI symptoms R39.9 and Hematuria, unspecified type R31.9 [place] [id number] [place] [address] 23255- 5001 Jul, [place] [address] [place] [id number] [place] [address] 85556- 6813 Jun, Low back pain, unspecified back pain laterality, with sciatica presence unspecified M54.5 [place] [id number] [place] [address] 43372- 2433 Jun, BMI 31.0-31.9,adult Z68.31 [place] [address] 99853- 2926 Jun, Neuropathy G62.9 [place] [address] 70041- 4887 Jun, Low back pain, unspecified back pain laterality, with sciatica presence unspecified M54.5 [place] [id number] [place] [address] 37114- 5699 Jun, Encounter for immunization Z23 [place] [address] 88721- 4211 Jun, BMI 31.0-31.9,adult Z68.31 [place] [id number] [place] [address] 92608- 8528 Jun, Low back pain, unspecified back pain laterality, with sciatica presence unspecified M54.5 [place] [id number] [place] [address] 89076- 1825 May, Low back pain, unspecified back pain laterality, with sciatica presence unspecified M54.5 ; Other chronic pain G89.29 ; Plantar fasciitis M72.2 ; Rheumatoid arthritis, involving unspecified site, unspecified rheumatoid factor presence M06.9 and History of alcohol abuse Z87.898 [place] [address] 18779- 2336 May, Anxiety F41.9 and Low back pain, unspecified back pain laterality, with sciatica presence unspecified M54.5 [place] [id number] [place] [address] 61167- 4062 Apr, Anxiety F41.9 and Low back pain, unspecified back pain laterality, with sciatica presence unspecified M54.5 [place] [address] 40287- 7023 18 Mar, 2017 Acute right-sided low back pain without sciatica M54.5 ; Rash R21 ; Right flank pain R10.9 ; Lipid screening Z13.220 ; Other chronic pain G89.29 ; Hyperinsulinemia E16.1 ; Postoperative hypothyroidism E89.0 and Breast cancer screening Z12.39 [place] [address] 20759- 8983 14 Mar, 2017 Anxiety F41.9 and Low back pain, unspecified back pain laterality, with sciatica presence unspecified M54.5 [place] [address] 15591- 1927 13 Mar, 2017 Acute right-sided low back pain without sciatica M54.5 [place] [address] 86519- 7548 07 Mar, 2017 Anxiety F41.9 [place] [address] 87083- 8712 28 Feb, 2017 Right flank pain R10.9 and Anxiety F41.9 [place] [address] 74362- 6768 16 Feb, 2017 BMI 31.0-31.9,adult Z68.31 [place] [address] 34088- 6741 Feb, Low back pain, unspecified back pain laterality, with sciatica presence unspecified M54.5 and Anxiety F41.9 [facility] [address] 16968 [address]3478 January, Abscess of toe of right foot L02.611 and Other atopic dermatitis L20.89 [place] [address] 05851- 7905 January, Low back pain, unspecified back pain laterality, with sciatica presence unspecified M54.5 and Anxiety F41.9 [facility] [address] 32353- 4880 Dec, Anxiety F41.9 and Low back pain, unspecified back pain laterality, with sciatica presence unspecified M54.5 [facility] [address] [address]47 Dec, Scabies B86 [facility] [address] [place] 363511- 4149 Nov, Rash R21 ; Other chronic pain G89.29 ; Hyperinsulinemia E16.1 ; Postoperative hypothyroidism E89.0 ; Breast cancer screening Z12.39 and Lipid screening Z13.220 [place] [address] 17755- 1912 Nov, Anxiety F41.9 and Low back pain, unspecified back pain laterality, with sciatica presence unspecified M54.5 [facility] [address] 36830- 8224 Oct, Anxiety F41.9 and Low back pain, unspecified back pain laterality, with sciatica presence unspecified M54.5 [place] [address] 54750- 0880 Sep, Anxiety F41.9 and Low back pain, unspecified back pain laterality, with sciatica presence unspecified M54.5 [place] [id number] [place] [address] 03202- 6144 Sep, Anxiety F41.9 [place] [address] 91291- 9971 Sep, Gastro-esophageal reflux disease without esophagitis K21.9 [facility] [address] [id number] Sep, Dental examination Z01.20 [place] [address] 49102- 4096 Sep, Low back pain, unspecified back pain laterality, with sciatica presence unspecified M54.5 and Postoperative hypothyroidism E89.0 [facility] [address] 86890- 6449 Aug, Anxiety F41.9 [facility] [address] 61923- 8265 Aug, [facility] [address] 18178- 1916 Aug, Low back pain, unspecified back pain laterality, with sciatica presence unspecified M54.5 ; Other chronic pain G89.29 ; Thyroid cancer C73 and Postoperative hypothyroidism E89.0 [place] [address] 52283- 5167 Jul, [place] [address] 18886- 7362 Jul, Anxiety F41.9 [place] [address] 45770- 1333 Jul, [place] [address] 18820- 8058 Jul, BMI 29.0-29.9,adult Z68.29 [place] [address] 28316- 3864 Jul, [facility] [address] 17412- 2261 Jul, BMI 30.0-30.9,adult Z68.30 [facility] [address] 91683- 6670 Jul, Low back pain, unspecified back pain laterality, with sciatica presence unspecified M54.5 and Anxiety F41.9 [place] [id number] [place] [address] 20404- 1497 Jun, Hyperinsulinemia E16.1 [place] [id number] [place] [address] 63433- 4797 17 Jun, 2016 BMI 30.0-30.9,adult Z68.30 [place] [address] 83900- 1730 14 Jun, 2016 [place] [address] 28782- 6620 10 Jun, 2016 Hyperinsulinemia E16.1 ; Dysthymia F34.1 ; Encounter for immunization Z23 and Other chronic pain G89.29 [place] [address] 18101- 2832 06 Jun, 2016 Low back pain, unspecified back pain laterality, with sciatica presence unspecified M54.5 [place] [address] 74150- 3921 04 Jun, 2016 BMI 30.0-30.9,adult Z68.30 [place] [address] 65825- 2405 04 Jun, 2016 Anxiety F41.9 [place] [address] 18005- 7692 May, Hyperinsulinemia E16.1 [place] [id number] [place] [address] 25581- 0483 May, Constipation, unspecified constipation type K59.00 [place] [id number] [place] [address] 94360- 2266 08 May, 2016 Low back pain, unspecified back pain laterality, with sciatica presence unspecified M54.5 [place] [id number] [place] [address] 25402- 4886 08 May, 2016 [place] [address] 32990- 9029 May, Constipation, unspecified constipation type K59.00 [place] [id number] [place] [address] 69846- 8019 May, Anxiety F41.9 [facility] [id number] [place] [address] 16784- 6537 Apr, BMI 31.0-31.9,adult Z68.31 [facility] [id number] [place] [address] 14704- 4033 Apr, Thyroid goiter E04.9 [facility] [address] 79694- 8364 Apr, [facility] [address] 47733- 5022 Apr, Low back pain, unspecified back pain laterality, with sciatica presence unspecified M54.5 [place] [id number] [place] [address] 44967- 0966 Apr, [place] [address] 63561- 5669 Apr, Constipation, unspecified constipation type K59.00 ; Thyroid nodule E04.1 ; Family history of colon cancer Z80.0 and Hyperinsulinemia E16.1 [place] [id number] [place] [address] 62842- 4357 Apr, Anxiety F41.9 [facility] [id number] [place] [address] 90418- 8295 Mar, [facility] [id number] [place] [address] 31185- 0341 Mar, Low back pain, unspecified back pain laterality, with sciatica presence unspecified M54.5 [facility] [id number] [place] [address] 19590- 5367 Mar, BMI 32.0-32.9,adult Z68.32 [facility] [id number] [place] [address] 89715- 1552 Feb, Anxiety F41.9 [facility] [address] 20670- 0455 Feb, Depression, unspecified depression type F32.9 [place] [id number] [place] [address] 40647- 7525 Feb, BMI 32.0-32.9,adult Z68.32 [place] [id number] [place] [address] 68927- 6573 16 Feb, 2016 Low back pain, unspecified back pain laterality, with sciatica presence unspecified M54.5 [place] [id number] [place] [address] 30347- 8669 Feb, [place] [address] 38501- 8447 Feb, BMI 32.0-32.9,adult Z68.32 [place] [id number] [place] [address] 89899- 6096 Feb, Anxiety F41.9 [place] [id number] [place] [address] 42822- 5282 January, BMI 32.0-32.9,adult Z68.32 [place] [id number] [place] [address] 50246- 5212 January, Low back pain, unspecified back pain laterality, with sciatica presence unspecified M54.5 ; Other chronic pain G89.29 ; Weight gain R63.5 and Rheumatoid arthritis, involving unspecified site, unspecified rheumatoid factor presence M06.9 [place] [id number] [place] [address] 15253- 1448 January, Low back pain, unspecified back pain laterality, with sciatica presence unspecified M54.5 [place] [id number] [place] [address] 08334- 2406 January, BMI 32.0-32.9,adult Z68.32 [place] [id number] [place] [address] 55520- 3059 January, BMI 32.0-32.9,adult Z68.32 [facility] [place] [facility] [id number] [place] [address] 05963- 3397 January, BMI 32.0-32.9,adult Z68.32 [facility] [id number] [place] [address] 78237- 3668 27 Dec, 2015 Insomnia G47.00 and Dysthymia F34.1 [facility] [address] 90310- 6145 Dec, [facility] [id number] [place] [address] 64319- 6432 Dec, Other chronic pain G89.29 ; Neuropathy G62.9 and Dysthymia F34.1 [facility] [id number] [place] [address] 71287- 1171 Dec, [facility] [address] 74113- 4942 Nov, [facility] [id number] [place] [address] 58293- 8192 Nov, [facility] [id number] [place] [address] 68883- 2925 Nov, [facility] [id number] [place] [address] 95845- 7509 Oct, [facility] [id number] [place] [address] 39465- 6237 Oct, [facility] [id number] [place] [address] 73898- 0562 Oct, Family history of diabetes mellitus Z83.3 [facility] [id number] [place] [address] 62268- 8210 Oct, [facility] [id number] [place] [address] 35010- 7447 Sep, [facility] [id number] [place] [address] 21043- 6475 Sep, Eye pain, right H57.11 and Other chronic pain G89.29 [facility] [id number] [place] [address] 80517- 1299 Sep, [facility] [id number] [place] [address] 23755- 9673 Sep, [facility] [address] 68842- 9766 Sep, Hyperinsulinemia E16.1 ; Neuropathy G62.9 ; Low back pain, unspecified back pain laterality, with sciatica presence unspecified M54.5 ; Gastro-esophageal reflux disease without esophagitis K21.9 and Encounter for long-term (current) use of other medications V58.69 [place] [id number] [place] [address] 06567- 0431 Sep, [place] [id number] [place] [address] 58387- 1586 Sep, [facility] [id number] [place] [address] 15885- 5810 Sep, [facility] [id number] [place] [address] 06615- 5427 Sep, [facility] [id number] [place] [address] 53438- 5892 Aug, [facility] [id number] [place] [address] 57849- 6015 Aug, Family history of diabetes mellitus Z83.3 [facility] [address] [place] [address] 92240- 7187 Aug, [facility] [id number] [place] [address] 96642- 6784 Aug, [facility] [address] [place] [address] 64682- 8120 Aug, Family history of diabetes mellitus Z83.3 [facility] [id number] [place] [address] 49971- 4473 14 Aug, 2015 Weight gain R63.5 ; Edema, unspecified R60.9 ; Family history of diabetes mellitus Z83.3 and Gastroesophageal reflux disease with esophagitis K21.0 [facility] [id number] [place] [address] 96820- 2713 14 Aug, 2015 [facility] [id number] [place] [address] 29326- 9228 10 Aug, 2015 [facility] [id number] [place] [address] 69949- 2639 Jul, [facility] [id number] [place] [address] 86296- 3609 Jul, [place] [id number] [place] [address] 44349- 2327 Jul, [facility] [id number] [place] [address] 66753- 0266 Jun, [facility] [id number] [place] [address] 98597- 0936 Jun, Nose pain J34.89 ; Encounter for immunization Z23 ; Screening for breast cancer Z12.39 and Encounter for long-term (current) use of other medications V58.69 [facility] [address] [address]- 5644 Jun, [facility] [id number] [place] [address] 47235- 7074 May, [facility] [id number] [place] [address] 84628- 1038 18 May, 2015 [facility] [id number] [place] [address] 49057- 1452 May, [facility] [address] [place] [address] 59088- 0626 May, [facility] [id number] [place] [address] 73845- 6410 May, [facility] [address] [address]- 8403 May, [facility] [address], [place] [address]- 0912 May, [facility] [address] [address]- 6181 Apr, [facility] [address] [place] [address] 89325- 2148 Apr, [facility] [address] [place] [address] 37567- 7177 Apr, [facility] [address] [address]- 1411 Mar, [facility] [id number] [place] [address] 84831- 9374 Mar, [facility] [address] [address]- 3163 Mar, Lesion of left shoulder 709.9 [facility] [address], [place] [address]- 9820 Mar, [facility] [address], [place] [address]- 8692 Mar, [facility] [address] [address]- 5836 Mar, [facility] [address], [place] [address]- 8932 Feb, [facility] [address] [address]- 4208 Feb, [facility] [address], [place] [address]- 1198 Feb, Unspecified backache 724.5 ; Weight gain 783.1 ; Hypothyroid 244.9 ; Edema 782.3 and Diaphoresis 780.8 [facility] [place] [facility] [address] [id number] [place] [address]- 9953 18 Feb, 2015 [facility] [place] [facility] [address] [id number] [place] [address]- 0333 10 Feb, 2015 [facility] [place] [facility] [address] [id number] [place] [address]- 3732 09 Feb, 2015 [facility] [place] [facility] [address] [id number] [place] [address]- 8512 Feb, [facility] [place] [facility] [address] [id number] [place] [address]- 1931 Feb, [facility] [place] [facility] [address] [id number] [place] [address]- 9964 January, [facility] [place] [facility] [address] [facility] [id number] [place] [address]- 9909 January, [facility] [place] [facility] [address] [facility] [id number] [place] [address]- 5986 14 Dec, 2014 [facility] [place] [facility] [address] [id number] [place] [address]- 9069 13 Dec, 2014 [facility] [place] [facility] [address] [facility] [id number], [place] [address]- 3971 16 Nov, 2014 [facility] [place] [facility] [address] [facility] [id number], [place] [address]- 1066 16 Nov, 2014 [facility] [place] [facility] [address] [id number] [address]- 3332 16 Nov, 2014 [facility] [place] [facility] [address] [id number] [place] [address]- 8443 16 Nov, 2014 [facility] [place] [facility] [address] [id number] [place] [address]- 4800 16 Nov, 2014 [facility] [place] [facility] [address] [facility] [id number], [place] [address]- 8028 16 Nov, 2014 [facility] [place] [facility] [address] [id number], [place] [address]- 4199 Nov, [facility] [place] [facility] [address] [id number] [place] [address]- 9562 Nov, [facility] [place] [facility] [address] [id number] [place] [address]- 0818 Nov, [facility] [place] [facility] [address] [id number] [place] [address]- 6050 Nov, [facility] [place] [facility] [address] [id number] [place] [address]- 0007 Nov, [facility] [place] [facility] [address] [id number] [place] [address]- 7846 Nov, [facility] [place] [facility] [address] [id number] [place] [address]- 1194 Nov, [facility] [place] [facility] [address] [id number] [place] [address]- 4436 Oct, [facility] [place] [facility] [address] [id number] [place] [address]- 6240 Oct, [facility] [place] [facility] [address] [id number] [place] [address]- 3001 Sep, [facility] [place] [facility] [address] [facility] [id number] [place] [address]- 6124 Sep, [facility] [place] [facility] [address] [id number] [place] [address]- 8263 Aug, [facility] [place] [facility] [address] [id number] [place] [address]- 3918 Aug, [facility] [place] [facility] [address] [id number] [place] [address]- 4285 Aug, [facility] [place] [facility] [address] [id number] [place] 6004 Aug, [facility] [place] [facility] [address] [facility] [id number] [place] [address]- 3796 Aug, [facility] [place] [facility] [address] [id number] [place] [address]- 4632 17 Aug, 2014 [facility] [place] [facility] [address] [id number] [place] [address]- 0422 Aug, [facility] [place] [facility] [address] [id number] [place] [address] Aug, [facility] [place] [facility] [address] [id number] [place] [address] Aug, [facility] [place] [facility] [address] [id number] [place] [address] Jul, [facility] [place] [facility] [address] [id number] [place] [address] Jul, [facility] [place] [facility] [address] [id number] [place] [address] Jul, [facility] [place] [facility] [address] [id number] [place] [address] Jul, [facility] [place] [facility] [address] [id number] [place] [address] Jul, [facility] [place] [facility] [address] [id number] [place] [address] Jul, [facility] [place] [facility] [address] [id number] [place] [address] Jul, [facility] [place] [facility] [address] [id number] [place] [address] Jul, [facility] [place] [facility] [address] [id number] [place] [address] Jul, [facility] [place] [facility] [address] [id number] [place] [address] Jul, [facility] [place] [facility] [address] [id number] [place] [address] Jun, [facility] [place] [facility] [address] [id number] [place] [address] Jun, [facility] [place] [facility] [address] [id number] [place] [address] Jun, [facility] [place] [facility] [address] [id number] [place] [address] Jun, [facility] [place] [facility] [address] [id number] [place] [address] Jun, [facility] [place] [facility] [address] [id number] [place] [address] Jun, [facility] [place] [facility] [address] [id number] [place] [address] 30 May, 2013 [facility] [place] [facility] [address] [id number] [place] [address] 30 May, 2013 [facility] [place] [facility] [address] [id number] [place] [address] 29 May, 2013 [facility] [place] [facility] [address] [id number] [place] [address] 29 May, 2013 [facility] [place] [facility] [address] [id number] [place] [address]- 9621 24 May, 2013 [facility] [place] [facility] [address] [id number] [place] [address] 8660 24 May, 2013 [facility] [place] [facility] [address] [id number] [place] [address] 8730 22 May, 2013 [facility] [place] [facility] [address] [id number], [place] [address] 22 Sep, 2013 [facility] [place] [facility] [address] [id number] [place] [address]41 05 Sep, 2013 [facility] [place] [facility] [address] [id number] [place] [address] 2541 05 Sep, 2013 [facility] [place] [facility] [address] [id number] [place] [address]- 2546 02 Sep, 2013 [facility] [place] [facility] [address] [id number] [place] [address] 8267 May, [facility] [place] [facility] [address] [id number] [place] [address] 8363 Apr, [facility] [place] [facility] [address] [id number] [place] [address] Apr, [facility] [place] [facility] [address] [id number] [place] [address]- 7672 Apr, [facility] [place] [facility] [address] [id number] [place] [address]- 5823 Apr, [facility] [place] [facility] [address] [id number] [place] [address]- 7554 Apr, [facility] [place] [facility] [address] [id number] [place] [address]- 2062 Apr, [facility] [place] [facility] [address] [id number] [place] [address]- 9263 Apr, [facility] [place] [facility] [address] [id number] [place] [address]- 2646 Apr, [facility] [place] [facility] [address] [id number] [place] [address]- 6220 Apr, [facility] [place] [facility] [address] [id number] [place] [address]- 3147 Apr, [facility] [place] [facility] [address] [id number] [place] [address]- 6722 Apr, [facility] [place] [facility] [address] [id number] [place] [address]- 6403 Apr, [facility] [place] [facility] [address] [id number] [place] [address]- 6614 Apr, [facility] [place] [facility] [address] [id number] [place] [address]- 8945 Apr, [facility] [place] [facility] [address] [id number] [place] [address]- 2638 Apr, [facility] [place] [facility] [address] [id number] [place] [address]- 7138 Apr, [facility] [place] [facility] [address] [id number] [place] [address]- 2284 Apr, [facility] [place] [facility] [address] [id number] [place] [address]- 4804 Apr, [facility] [place] [facility] [address] [id number] [place] [address]- 4287 Apr, [facility] [place] [facility] [address] [id number] [place] [address]- 5839 Apr, [facility] [place] [facility] [address] [id number] [place] [address]- 4130 Apr, [facility] [place] [facility] [address] [id number] [place] [address]- 0610 Apr, [facility] [place] [facility] [address] [id number] [place] [address]- 9613 Apr, [facility] [place] [facility] [address] [id number] [place] [address]- 3816 Mar, [facility] [place] [facility] [address] [id number] [place] [address]- 8767 Mar, [facility] [place] [facility] [address] [id number] [place] [address]- 7636 Mar, [facility] [place] [facility] [address] [id number] [place] [address]- 5516 Mar, [facility] [place] [facility] [address] [id number] [place] [address]- 3168 Mar, [facility] [place] [facility] [address] [id number] [place] [address]- 1536 Mar, [facility] [place] [facility] [address] [id number] [place] [address]- 9409 Mar, [facility] [place] [facility] [address] [id number] [place] [address]- 5353 Mar, [facility] [place] [facility] [address] [id number] [place] [address]- 9021 Mar, [facility] [place] [facility] [address] [id number] [place] [address]- 1810 Mar, [facility] [place] [facility] [address] [id number] [place] [address]- 7575 Mar, [facility] [place] [facility] [address] [id number] [place] [address]- 7881 Mar, [facility] [place] [facility] [address] [id number] [place] [address]- 3172 Mar, [facility] [place] [facility] [address] [id number] [place] [address]- 6339 Mar, [facility] [place] [facility] [address] [id number] [place] [address]- 8586 Feb, [facility] [place] [facility] [address] [id number] [place] [address]- 8877 Feb, [facility] [place] [facility] [address] [id number] [place] [address]- 6577 Feb, [facility] [place] [facility] [address] [id number] [place] [address]- 0982 Feb, [facility] [place] [facility] [address] [id number] [place] [address]- 4762 Feb, [facility] [place] [facility] [address] [id number] [place] [address]- 8544 Feb, [facility] [place] [facility] [address] [id number] [place] [address]- 3421 Feb, [facility] [place] [facility] [address] [id number] [place] [address]- 4424 Feb, [facility] [place] [facility] [address] [id number] [place] [address]- 0890 Dec, [facility] [place] [facility] [address] [id number] [place] [address]- 4384 Dec, [facility] [place] [facility] [address] [id number] [place] [address]- 2258 Dec, [facility] [place] [facility]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
--- OUTSIDE RECORDS SUMMARY | 2018-06-07 12:14 | XMS REPORT ---
Author Author ELISEO BENDER Organization [employer] Address Unknown Phone Unavailable Care Team Providers Care Waste And Batting Waste Chopper Name Role Phone ELISEO BENDER CP Unavailable [...] and idiopathic peripheral neuropathy 356.9 Active Assessment Thyroid goiter E04.9 Active Problem Unspecified backache 724.5 Active Problem Other malaise and fatigue 780.79 Active Problem Gastro-esophageal reflux disease without esophagitis K21.9 Active Medications No Known Medications Results No Known Results Summary Purpose [employer] Submission
--- OUTSIDE RECORDS SUMMARY | 2018-06-07 12:14 | XMS REPORT ---
Author Author JARET OZUNA [facility] [employer] Address Unknown Phone Unavailable Care Team Providers Care Puppy Trainer Name Role Phone JARET OZUNA CP Unavailable [...] idiopathic peripheral neuropathy 356.9 Active Assessment BMI 30.0-30.9,adult Z68.30 Active Problem Unspecified backache 724.5 Active Problem Other malaise and fatigue 780.79 Active Problem Gastro-esophageal reflux disease without esophagitis K21.9 Active Medications No Known Medications Procedures Procedure Coding System Code Date No Charge CPT-4 90623 Jun 10, 2016 Vital Signs Date/Time: Jun 10, 2016 Cardiac Monitoring Heart Rate 78 bpm Weight 202.0 lbs Height 68 in BMI 30.71 Index Blood Pressure Diastolic 76 mmHg Blood Pressure Systolic 128 mmHg Results No Known Results Summary Purpose [employer] Submission
--- OUTSIDE RECORDS SUMMARY | 2018-06-07 12:14 | XMS REPORT ---
Author Author ELISEO BENDER Organization [employer] Address Unknown Phone Unavailable Care Team Providers Care Consulting Networking Engineer Name Role Phone ELISEO BENDER CP Unavailable [...]
--- OUTSIDE RECORDS SUMMARY | 2018-06-07 12:14 | XMS REPORT ---
Author Author JARET OZUNA [employer] Address Unknown Phone Unavailable Care Team Providers Care Diesel Engine Fitter Name Role Phone JARET OZUNA Unavailable Allergies No Known Allergies Problems Problem [...] rheumatoid factor presence M06.9 Active Assessment BMI 30.0-30.9,adult Z68.30 Active Problem Unspecified hereditary and idiopathic peripheral neuropathy 356.9 Active Problem Unspecified backache 724.5 Active Problem Other malaise and fatigue 780.79 Active Problem Gastro-esophageal reflux disease without esophagitis K21.9 Active Problem Rheumatoid arthritis 714.0 Active Problem Low back pain, unspecified back pain laterality, with sciatica presence unspecified M54.5 Active Medications No Known Medications Procedures Procedure Coding System Code Date No Charge CPT-4 86909 Jul 15, 2016 LAB NOT BILLED BY [facility] CPT-4 NOBLL Jul 15, 2016 Vital Signs Date/Time: Jul 15, 2016 Cardiac Monitoring Heart Rate 80 bpm Weight 199.0 lbs Height 68 in BMI 30.25 Index Blood Pressure Diastolic 76 mmHg Blood Pressure Systolic 110 mmHg Results Name Result Date Reference Range Unit Abnormality Flag GLUCOSE, SERUM ----Glucose, Serum 98 06206021 65-99 mg/dL LIPID PANEL ----VLDL Cholesterol August 16 04810391 5-40 mg/dL ----LDL Cholesterol Calc 119 30032899 0-99 mg/dL H ----Triglycerides 81 12504381 0-149 mg/dL ----HDL Cholesterol 65 14063650 >39 mg/dL ----Cholesterol, Total 200 20160715 100-199 mg/dL H Summary Purpose eClinicalWorks Submission
--- OUTSIDE RECORDS SUMMARY | 2018-06-07 12:14 | XMS REPORT ---
Author Author ELISEO BENDER [facility] Address [address] [place] [address] Care Team Providers Care Director Alumni Relations Name Role Phone ELISEO BENDER Unavailable PROBLEMS Type Condition ICD9-CM Code SIE89-GY Code Onset Dates Condition Status SNOMED Code Problem Neuropathy G62.9 Active 679691334 Problem Other chronic pain G89.29 Active 18770356 Problem Hyperinsulinemia E16.1 Active 78226307 Problem Depression, unspecified depression type F32.9 Active 42370022 Problem Anxiety F41.9 Active 56104131 Problem Insomnia G47.00 Active 063347744 Problem Dysthymia F34.1 Active 53370625 Problem Chest pain, unspecified type R07.9 Active 67094634 Problem Rheumatoid arthritis, involving unspecified site, unspecified rheumatoid factor presence M06.9 Active 26011218 Problem Unspecified hereditary and idiopathic peripheral neuropathy 356.9 Active 234614449 Problem Unspecified backache 724.5 Active 571983081 Problem Other malaise and fatigue 780.79 Active 983576062 Problem Gastro-esophageal reflux disease without esophagitis K21.9 Active 771187724 Problem Rheumatoid arthritis 714.0 Active 40659725 Problem Low back pain, unspecified back pain laterality, with sciatica presence unspecified M54.5 Active 955845867 ALLERGIES Unknown Allergies SOCIAL HISTORY No smoking Hx information available PLAN OF CARE VITAL SIGNS MEDICATIONS Medication Instructions Dosage Frequency Start Date End Date Duration Status tramadol 50 mg orally 3 times a day 2 Tablets 8h Nov, 28 days Active RESULTS No Results PROCEDURES No Known procedures IMMUNIZATIONS No Known Immunizations
--- OUTSIDE RECORDS SUMMARY | 2018-06-07 12:14 | XMS REPORT ---
Author Author ELISEO BENDER Organization [employer] Address Unknown Phone Unavailable Care Team Providers Care Land Management Forester Name Role Phone ELISEO BENDER CP Unavailable [...] unspecified rheumatoid factor presence M06.9 Active Assessment Hyperinsulinemia E16.1 Active Problem Unspecified hereditary and idiopathic peripheral [...] End Date Status Dosage MetFORMIN HCl ER [facility] [address]-17 500 MG Orally 2 times a day Aug 27, 2015 1 tablet with meals Results No Known Results Summary Purpose [employer]ClinicalWorks Submission
--- OUTSIDE RECORDS SUMMARY | 2018-06-07 12:14 | XMS REPORT ---
Author Author ELISEO BENDER Organization [employer] Address Unknown Phone Unavailable Care Team Providers Care [facility] Name Role Phone ELISEO BENDER CP Unavailable [...] Start Date End Date Status Dosage Xanax [facility] [address]-62 0.25 MG November 15, 2014 1 tablet by Oral route 3 times per day PRN anxiety Results No Known Results Summary Purpose [employer]ClinicalWorks Submission
--- OUTSIDE RECORDS SUMMARY | 2018-06-07 12:14 | XMS REPORT ---
Author Author ELISEO BENDER [facility] Address [address] [place] [address] Care Team Providers Care Panel Assembler Name Role Phone EILSEO BENDER Unavailable PROBLEMS Type Condition ICD9-CM Code LII65-CU Code Onset Dates Condition Status SNOMED Code Problem Neuropathy G62.9 Active 907921355 Problem Other chronic pain G89.29 Active 36127975 Problem Hyperinsulinemia E16.1 Active 07214569 Problem Depression, unspecified depression type F32.9 Active 64929751 Problem Anxiety F41.9 Active 79652931 Problem Insomnia G47.00 Active 208157426 Problem Dysthymia F34.1 Active 05580583 Problem Chest pain, unspecified type R07.9 Active 41280401 Problem Rheumatoid arthritis, involving unspecified site, unspecified rheumatoid factor presence M06.9 Active 33295706 Problem Unspecified hereditary and idiopathic peripheral neuropathy 356.9 Active 658895386 Problem Unspecified backache 724.5 Active 452599220 Problem Other malaise and fatigue 780.79 Active 920073258 Problem Gastro-esophageal reflux disease without esophagitis K21.9 Active 508720965 Problem Rheumatoid arthritis 714.0 Active 79284633 Problem Low back pain, unspecified back pain laterality, with sciatica presence unspecified M54.5 Active 932451462 ALLERGIES Unknown Allergies SOCIAL HISTORY No smoking Hx information available PLAN OF CARE VITAL SIGNS MEDICATIONS Unknown Medications RESULTS No Results PROCEDURES No Known procedures IMMUNIZATIONS No Known Immunizations
--- OUTSIDE RECORDS SUMMARY | 2018-06-07 12:15 | XMS REPORT ---
Author Author ELISEO BENDER Organization [employer] Address Unknown Phone Unavailable Care Team Providers Care Fisher Dip Net Name Role Phone ELISEO BENDER CP Unavailable [...] End Date Status Dosage Potassium Chloride ER [facility] [address]-25 20 MEQ Orally Once a day May 24, 2015 2 tabs Results No Known Results Summary Purpose [employer]Works Submission
--- OUTSIDE RECORDS SUMMARY | 2018-06-07 12:15 | XMS REPORT ---
Author Author ELISEO BENDER Organization [employer] Address Unknown Phone Unavailable Care Team Providers Care Data Steward Name Role Phone ELISEO BENDER CP Unavailable [...] route every 8 hours as needed mt Xanax NDC [address]-44 0.25 MG November 15, 2014 1 tablet by Oral route 3 times per day PRN anxiety Results No Known Results Summary Purpose eClinicalWorks Submission
--- OUTSIDE RECORDS SUMMARY | 2018-06-07 12:16 | XMS REPORT ---
Author Author ELISEO BENDER Organization [facility] Address [address] [place] [address] Care Team Providers Care Priming Mixture Carrier Name Role Phone ELISEO BENDER Unavailable PROBLEMS Type Condition ICD9-CM Code QCU22-VC Code Onset Dates Condition Status SNOMED Code Problem Insomnia G47.00 Active 170672089 Problem Chest pain, unspecified type R07.9 Active 95432477 Problem Rheumatoid arthritis, involving unspecified site, unspecified rheumatoid factor presence M06.9 Active 68532303 Problem BMI 31.0-31.9,adult Z68.31 Active 828670110 Problem Other atopic dermatitis L20.89 Active 29089102 Problem Depression, unspecified depression type F32.9 Active 46912378 Problem Anxiety F41.9 Active 13775350 Problem Thyroid cancer C73 Active 278550853 Problem Postoperative hypothyroidism E89.0 Active 71174603 Problem Hyperinsulinemia E16.1 Active 01986486 Problem Gastro-esophageal reflux disease without esophagitis K21.9 Active 032653368 Problem Low back pain, unspecified back pain laterality, with sciatica presence unspecified M54.5 Active 511587838 Problem Other chronic pain G89.29 Active 85812772 Problem Neuropathy G62.9 Active 740388106 Problem Dysthymia F34.1 Active 81002737 ALLERGIES No Information ENCOUNTERS Encounter Location Date Diagnosis [facility] [id number] [address] January, [facility] [id number] [place] [address] 29796- 8156 Dec, Low back pain, unspecified back pain laterality, with sciatica presence unspecified M54.5 [facility] [id number] [address] Nov, Low back pain, unspecified back pain laterality, with sciatica presence unspecified M54.5 [place] [address] [address]- 5058 Nov, [place] [address] [id number]- [address] Nov, Low back pain, unspecified back pain laterality, with sciatica presence unspecified M54.5 ; Other chronic pain G89.29 ; Rheumatoid arthritis, involving unspecified site, unspecified rheumatoid factor presence M06.9 and Dysthymia F34.1 [place] [address] 5[address]80- 3615 Oct, Low back pain, unspecified back pain laterality, with sciatica presence unspecified M54.5 [place] [address] 78945- 6458 Sep, Low back pain, unspecified back pain laterality, with sciatica presence unspecified M54.5 [facility] [address] [address] Sep, Fever R50.9 and URI, acute J06.9 [place] [address] 6[address]78- 3948 Aug, [place] [address] 56454- 7087 Aug, Low back pain, unspecified back pain laterality, with sciatica presence unspecified M54.5 [place] [address] 94449- 6184 Jul, Low back pain, unspecified back pain laterality, with sciatica presence unspecified M54.5 [facility] WALK IN [place] [address] 0[address] -[address]806 15 Jul, 2017 Nausea R11.0 ; Fever and chills R50.9 ; UTI symptoms R39.9 and Hematuria, unspecified type R31.9 [place] [address] 19582- 3313 Jul, [place] [id number] [place] [address] 52935- 8508 Jun, Low back pain, unspecified back pain laterality, with sciatica presence unspecified M54.5 [place] [id number] [place] [address] 41398- 3021 Jun, BMI 31.0-31.9,adult Z68.31 [place] [address] 70404- 5250 Jun, Neuropathy G62.9 [place] [address] 00881- 7907 Jun, Low back pain, unspecified back pain laterality, with sciatica presence unspecified M54.5 [place] [address] 56784- 0696 Jun, Encounter for immunization Z23 [place] [address] 73647- 8160 Jun, BMI 31.0-31.9,adult Z68.31 [place] [address] 54090- 6549 Jun, Low back pain, unspecified back pain laterality, with sciatica presence unspecified M54.5 [place] [id number] [place] [address] 31475- 0005 May, Low back pain, unspecified back pain laterality, with sciatica presence unspecified M54.5 ; Other chronic pain G89.29 ; Plantar fasciitis M72.2 ; Rheumatoid arthritis, involving unspecified site, unspecified rheumatoid factor presence M06.9 and History of alcohol abuse Z87.898 [place] [id number] [place] [address] 64805- 5042 May, Anxiety F41.9 and Low back pain, unspecified back pain laterality, with sciatica presence unspecified M54.5 [place] [address] 41415- 7274 11 Apr, 2017 Anxiety F41.9 and Low back pain, unspecified back pain laterality, with sciatica presence unspecified M54.5 [place] [address] 39104- 9807 18 Mar, 2017 Acute right-sided low back pain without sciatica M54.5 ; Rash R21 ; Right flank pain R10.9 ; Lipid screening Z13.220 ; Other chronic pain G89.29 ; Hyperinsulinemia E16.1 ; Postoperative hypothyroidism E89.0 and Breast cancer screening Z12.39 [place] [address] 71829- 6318 14 Mar, 2017 Anxiety F41.9 and Low back pain, unspecified back pain laterality, with sciatica presence unspecified M54.5 [place] [address] 81794- 0633 13 Mar, 2017 Acute right-sided low back pain without sciatica M54.5 [place] [address] 13136- 1623 07 Mar, 2017 Anxiety F41.9 [place] [address] 99622- 2694 28 Feb, 2017 Right flank pain R10.9 and Anxiety F41.9 [place] [address] 73980- 6374 16 Feb, 2017 BMI 31.0-31.9,adult Z68.31 [place] [address] 22777- 4322 16 Feb, 2017 Low back pain, unspecified back pain laterality, with sciatica presence unspecified M54.5 and Anxiety F41.9 [facility] [address] 8[address]15[address] January, Abscess of toe of right foot L02.611 and Other atopic dermatitis L20.89 [place] [address] 46944- 6480 January, Low back pain, unspecified back pain laterality, with sciatica presence unspecified M54.5 and Anxiety F41.9 [place] [address] 14048783- 4061 Dec, Anxiety F41.9 and Low back pain, unspecified back pain laterality, with sciatica presence unspecified M54.5 [facility] [address] [address] Dec, Scabies B86 [place] [address] 65811- 0964 Nov, Rash R21 ; Other chronic pain G89.29 ; Hyperinsulinemia E16.1 ; Postoperative hypothyroidism E89.0 ; Breast cancer screening Z12.39 and Lipid screening Z13.220 [place] [address] 64198- 0615 Nov, Anxiety F41.9 and Low back pain, unspecified back pain laterality, with sciatica presence unspecified M54.5 [place] [address] 53056- 1780 Oct, Anxiety F41.9 and Low back pain, unspecified back pain laterality, with sciatica presence unspecified M54.5 [place] [address] 93954- 7634 Sep, Anxiety F41.9 and Low back pain, unspecified back pain laterality, with sciatica presence unspecified M54.5 [place] [address] 63765- 3942 Sep, Anxiety F41.9 [place] [address] 41253- 3662 Sep, Gastro-esophageal reflux disease without esophagitis K21.9 [facility] [address] [id number] Sep, Dental examination Z01.20 [place] [id number] [place] [address] 68458- 2673 Sep, Low back pain, unspecified back pain laterality, with sciatica presence unspecified M54.5 and Postoperative hypothyroidism E89.0 [place] [id number] [place] [address] 76523- 1295 Aug, Anxiety F41.9 [place] [id number] [place] [address] 92127- 5763 Aug, [place] [address] 02103- 1125 Aug, Low back pain, unspecified back pain laterality, with sciatica presence unspecified M54.5 ; Other chronic pain G89.29 ; Thyroid cancer C73 and Postoperative hypothyroidism E89.0 [place] [id number] [place] [address] 58147- 4027 Jul, [place] [address] 26507- 7811 Jul, Anxiety F41.9 [place] [id number] [place] [address] 98125- 3876 Jul, [place] [id number] [place] [address] 11582- 3537 Jul, BMI 29.0-29.9,adult Z68.29 [place] [id number] [place] [address] 58815- 3394 Jul, [place] [id number] [place] [address] 74454- 9346 Jul, BMI 30.0-30.9,adult Z68.30 [place] [id number] [place] [address] 85643- 3046 Jul, Low back pain, unspecified back pain laterality, with sciatica presence unspecified M54.5 and Anxiety F41.9 [place] [id number] [place] [address] 14738- 3476 Jun, Hyperinsulinemia E16.1 [facility] [id number] [place] [address] 62793- 0209 17 Jun, 2016 BMI 30.0-30.9,adult Z68.30 [facility] [address] 56355- 1061 14 Jun, 2016 [facility] [address] 868875- 3437 Jun, Hyperinsulinemia E16.1 ; Dysthymia F34.1 ; Encounter for immunization Z23 and Other chronic pain G89.29 [place] [address] 248731- 7221 06 Jun, 2016 Low back pain, unspecified back pain laterality, with sciatica presence unspecified M54.5 [place] [address] 47742- 6666 Jun, BMI 30.0-30.9,adult Z68.30 [facility] [address] 96507- 0696 Jun, Anxiety F41.9 [place] [address] 44107- 8891 May, Hyperinsulinemia E16.1 [facility] [id number] [place] [address] 68677- 8077 May, Constipation, unspecified constipation type K59.00 [facility] [address] 20802- 0701 08 May, 2016 Low back pain, unspecified back pain laterality, with sciatica presence unspecified M54.5 [facility] [address] 80196- 9131 May, [facility] [address] 54146- 0105 07 May, 2016 Constipation, unspecified constipation type K59.00 [facility] [id number] [place] [address] 80630- 0527 May, Anxiety F41.9 [place] [address] 16814- 3847 Apr, BMI 31.0-31.9,adult Z68.31 [place] [address] 58813- 8758 Apr, Thyroid goiter E04.9 [place] [address] 59194- 1357 Apr, [place] [address] 46930- 3778 Apr, Low back pain, unspecified back pain laterality, with sciatica presence unspecified M54.5 [place] [address] 63107- 8733 Apr, [place] [address] 74371- 8661 Apr, Constipation, unspecified constipation type K59.00 ; Thyroid nodule E04.1 ; Family history of colon cancer Z80.0 and Hyperinsulinemia E16.1 [place] [address] 49298- 9893 Apr, Anxiety F41.9 [place] [id number] [place] [address] 73732- 9901 Mar, [place] [address] 70084- 4478 Mar, Low back pain, unspecified back pain laterality, with sciatica presence unspecified M54.5 [place] [address] 49019- 9300 Mar, BMI 32.0-32.9,adult Z68.32 [place] [address] 22866- 7962 Feb, Anxiety F41.9 [place] [address] [place] [address] 14172- 6714 30 Feb, 2016 Depression, unspecified depression type F32.9 [place] [id number] [place] [address] 91696- 7801 Feb, BMI 32.0-32.9,adult Z68.32 [place] [id number] [place] [address] 17057- 7978 16 Feb, 2016 Low back pain, unspecified back pain laterality, with sciatica presence unspecified M54.5 [place] [id number] [place] [address] 13443- 4618 Feb, [place] [id number] [place] [address] 63184- 9827 Feb, BMI 32.0-32.9,adult Z68.32 [place] [id number] [place] [address] 90975- 5906 Feb, Anxiety F41.9 [place] [id number] [place] [address] 64844- 6294 January, BMI 32.0-32.9,adult Z68.32 [place] [id number] [place] [address] 52220- 9189 January, Low back pain, unspecified back pain laterality, with sciatica presence unspecified M54.5 ; Other chronic pain G89.29 ; Weight gain R63.5 and Rheumatoid arthritis, involving unspecified site, unspecified rheumatoid factor presence M06.9 [place] [address] [place] [address] 17042- 0080 January, Low back pain, unspecified back pain laterality, with sciatica presence unspecified M54.5 [place] [id number] [place] [address] 41376- 2968 January, BMI 32.0-32.9,adult Z68.32 [place] [id number] [place] [address] 45807- 9027 January, BMI 32.0-32.9,adult Z68.32 [facility] [id number] [place] [address] 47596- 5329 January, BMI 32.0-32.9,adult Z68.32 [facility] [id number] [place] [address] 94287- 9781 Dec, Insomnia G47.00 and Dysthymia F34.1 [facility] [address] 22238- 4469 Dec, [facility] [address] 01272- 4720 Dec, Other chronic pain G89.29 ; Neuropathy G62.9 and Dysthymia F34.1 [facility] [id number] [place] [address] 73779- 1962 Dec, [facility] [id number] [place] [address] 30611- 6244 Nov, [facility] [id number] [place] [address] 45886- 7352 Nov, [facility] [id number] [place] [address] 14117- 3406 Nov, [facility] [id number] [place] [address] 44764- 6405 Oct, [facility] [id number] [place] [address] 06883- 7867 Oct, [facility] [id number] [place] [address] 53587- 6433 Oct, Family history of diabetes mellitus Z83.3 [facility] [id number] [place] [address] 54744- 5439 Oct, [facility] [id number] [place] [address] 63317- 8398 Sep, [facility] [id number] [place] [address] 23579- 5811 Sep, Eye pain, right H57.11 and Other chronic pain G89.29 [facility] [id number] [place] [address] 37349- 8722 Sep, [facility] [id number] [place] [address] 21967- 3606 Sep, [facility] [id number] [place] [address] 02557- 1920 Sep, Hyperinsulinemia E16.1 ; Neuropathy G62.9 ; Low back pain, unspecified back pain laterality, with sciatica presence unspecified M54.5 ; Gastro-esophageal reflux disease without esophagitis K21.9 and Encounter for long-term (current) use of other medications V58.69 [place] [id number] [place] [address] 37930- 8906 Sep, [place] [id number] [place] [address] 51450- 2113 Sep, [place] [address] 41482- 2161 Sep, [place] [id number] [place] [address] 76307- 1358 Sep, [place] [id number] [place] [address] 67162- 9602 Aug, [facility] [id number] [place] [address] 72244- 9404 Aug, Family history of diabetes mellitus Z83.3 [place] [address] 72999- 5658 Aug, [facility] [id number] [place] [address] 64928- 1667 Aug, [facility] [id number] [place] [address] 49321- 3866 Aug, Family history of diabetes mellitus Z83.3 [facility] [address] [place] [address] 70221- 0443 14 Aug, 2015 Weight gain R63.5 ; Edema, unspecified R60.9 ; Family history of diabetes mellitus Z83.3 and Gastroesophageal reflux disease with esophagitis K21.0 [facility] [id number] [place] [address] 17774- 0575 14 Aug, 2015 [facility] [id number] [place] [address] 51080- 6837 Aug, [facility] [id number] [place] [address] 38426- 0985 Jul, [place] [id number] [place] [address] 28968- 3166 Jul, [place] [id number] [place] [address] 09986- 3703 Jul, [facility] [id number] [place] [address] 69612- 5934 Jun, [facility] [id number] [place] [address] 17037- 0433 Jun, Nose pain J34.89 ; Encounter for immunization Z23 ; Screening for breast cancer Z12.39 and Encounter for long-term (current) use of other medications V58.69 [place] [id number] [place] [address] 16724- 1811 Jun, [facility] [id number] [place] [address] 95481- 6874 May, [place] [id number] [place] [address] 559932- 9203 18 May, 2015 [facility] [id number] [place] [address] 47224- 7798 May, [facility] [id number] [place] [address] 50483- 0983 May, [facility] [address] [facility] [id number] [place] [address]- 8421 May, [facility] [address] [facility] [id number] [place] [address]- 1455 May, [facility] [address] [facility] [id number] [place] [address]- 9224 May, [facility] [address] [facility] [id number] [place] [address]- 2045 Apr, [facility] [address] [facility] [id number] [place] [address]- 4472 Apr, [facility] [address] [facility] [id number] [place] [address]- 5810 Apr, [facility] [id number] [place] [address]- 4758 Mar, [facility] [id number] [address]- 6259 Mar, [facility] [id number] [address]- 9267 Mar, Lesion of left shoulder 709.9 [facility] [id number] [address]- 6623 Mar, [facility] [id number] [address]- 9401 Mar, [facility] [id number] [address]- 3517 Mar, [facility] [id number] [address]- 2486 Feb, [facility] [id number] [address]- 2543 Feb, [facility] [id number] [address]- 6204 Feb, Unspecified backache 724.5 ; Weight gain 783.1 ; Hypothyroid 244.9 ; Edema 782.3 and Diaphoresis 780.8 [facility] [id number] [place] [address]- 2419 18 Feb, 2015 [facility] [id number] [place] [address]- 4912 10 Feb, 2015 [facility] [id number] [place] [address], [place] [address]- 5357 Feb, [facility] [address] [facility] [id number] [place] [address]- 8282 Feb, [facility] [id number] [place] [address], [place] [address]- 0079 Feb, [facility] [id number] [place] [address]- 1670 January, [facility] [id number] [place] [address]- 8122 January, [facility] [id number] [address]- 9526 14 Dec, 2014 [facility] [id number] [place] [address]- 1273 13 Dec, 2014 [facility] [id number] [address]- 8779 16 Nov, 2014 [facility] [address] [address]- 1047 16 Nov, 2014 [facility] [id number] [address]- 8487 16 Nov, 2014 [facility] [address]- 5183 16 Nov, 2014 [facility] [id number] [address] 16 Nov, 2014 [facility] [id number] [address] 16 Nov, 2014 [facility] [place] [facility] [address] [id number] [place] [address] Nov, [facility] [place] [facility] [address] [id number] [place] [address] Nov, [facility] [place] [facility] [address] [id number] [place] [address] Nov, [facility] [place] [facility] [address] [id number] [place] [address] Nov, [facility] [place] [facility] [address] [id number] [place] [address] Nov, [facility] [place] [facility] [address] [id number] [place] [address] Nov, [facility] [place] [facility] [address] [id number] [place] [address] Nov, [facility] [place] [facility] [address] [id number] [place] [address] Oct, [facility] [place] [facility] [address] [id number] [place] [address] Oct, [facility] [place] [facility] [address] [id number] [place] [address] Sep, [facility] [place] [facility] [address] [id number] [place] [address] Sep, [facility] [place] [facility] [address] [id number] [place] [address] Aug, [facility] [place] [facility] [address] [id number] [place] [address] Aug, [facility] [place] [facility] [address] [id number] [place] [address] Aug, [facility] [place] [facility] [address] [id number] [place] [address] Aug, [facility] [place] [facility] [address] [id number] [place] [address] 17 Aug, 2014 [facility] [place] [facility] [address] [id number] [place] [address] 17 Aug, 2014 [facility] [place] [facility] [address] [id number] [place] [address] Aug, [facility] [place] [facility] [address] [id number] [place] [address] Aug, [facility] [place] [facility] [address] [id number] [place] [address] Aug, [facility] [facility] [address] [id number] [place] [address] Jul, [facility] [place] [facility] [address] [id number] [place] [address] 7[address] Jul, [facility] [place] [facility] [address] [id number] [place] [address] 3156 Jul, [facility] [place] [facility] [address] [id number] [place] [address] 8937 Jul, [facility] [place] [facility] [address] [id number] [place] [address]- 1883 Jul, [facility] [place] [facility] [address] [id number] [place] [address]- 1223 Jul, [facility] [place] [facility] [address] [id number] [place] [address]- 4014 Jul, [facility] [place] [facility] [address] [id number] [place] [address]- 1512 Jul, [facility] [place] [facility] [address] [id number] [place] [address]- 0885 Jul, [facility] [place] [facility] [address] [id number] [place] [address]- 2249 Jul, [facility] [place] [facility] [address] [id number] [place] [address]- 0327 Jun, [facility] [place] [facility] [address] [id number] [place] [address]- 4948 Jun, [facility] [place] [facility] [address] [id number] [place] [address]- 8311 Jun, [facility] [place] [facility] [address] [id number] [place] [address]- 7739 Jun, [facility] [place] [facility] [address] [id number] [place] [address]- 8447 Jun, [facility] [place] [facility] [address] [id number] [place] [address]- 4256 Jun, [facility] [place] [facility] [address] [id number] [place] [address]- 5498 30 May, 2013 [facility] [place] [facility] [address] [id number] [place] [address]- 3130 30 May, 2013 [facility] [place] [facility] [address] [id number] [place] [address]- 6216 29 May, 2013 [facility] [place] [facility] [address] [id number] [place] [address]- 2122 29 May, 2013 [facility] [place] [facility] [address] [id number] [place] [address]- 7726 24 May, 2013 [facility] [place] [facility] [address] [id number] [place] [address]- 2543 24 May, 2013 [facility] [place] [address] [id number] [place] [address]- 7663 22 May, 2013 [facility] [place] [facility] [address] [id number] [place] [address]- 2548 22 May, 2013 [facility] [place] [facility] [address] [id number] [place] [address]- 2544 05 Sep, 2013 [facility] [place] [facility] [address] [id number] [place] [address]- 2542 05 Sep, 2013 [facility] [place] [facility] [address] [id number] [place] [address]- 4597 May, [facility] [place] [address] [id number] [place] [address]- 9948 May, [facility] [place] [facility] [address] [id number] [place] [address]- 7140 Apr, [facility] [place] [facility] [address] [id number] [place] [address]- 7880 Apr, [facility] [place] [facility] [address] [id number] [place] [address]- 0458 Apr, [facility] [place] [facility] [address] [id number] [place] [address]- 2559 Apr, [facility] [place] [address] [id number] [place] [address]- 7250 Apr, [facility] [place] [address] [id number] [place] [address]- 6262 Apr, [facility] [place] [address] [id number] [place] [address]- 5682 Apr, [facility] [place] [facility] [address] [id number] [place] [address]- 4155 Apr, [facility] [place] [address] [id number] [place] [address]- 5818 Apr, [facility] [place] [facility] [address] [id number] [place] [address]- 1267 Apr, [facility] [place] [facility] [address] [id number] [place] [address]- 1204 Apr, [facility] [place] [facility] [address] [id number] [place] [address]- 8775 Apr, [facility] [address] [id number] [place] [address]- 2833 Apr, [facility] [address] [id number] [place] [address]- 1294 Apr, [facility] [address] [id number] [place] [address]- 8517 Apr, [facility] [address] [id number] [place] [address]- 4889 Apr, [facility] [address] [id number] [place] [address]- 6965 Apr, [facility] [address] [id number] [place] [address]- 6446 Apr, [facility] [address] [id number] [place] [address]- 8892 Apr, [facility] [address] [id number] [place] [address]- 5436 Apr, [facility] [address] [id number] [place] [address]- 6287 Apr, [facility] [address] [id number] [place] [address]- 0134 Apr, [facility] [address] [id number] [place] [address]- 8365 Apr, [facility] [place] [facility] [address] [id number] [place] [address]- 5151 Mar, [facility] [address] [id number] [place] [address]- 7396 Mar, [facility] [address] [id number] [place] [address]- 0146 Mar, [facility] [address] [id number] [place] [address]- 8761 Mar, [facility] [address] [id number] [place] [address]- 4416 Mar, [facility] [address] [id number] [place] [address]- 0136 Mar, [facility] [address] [id number] [place] [address]- 8355 Mar, [facility] [address] [id number] [place] [address]- 2722 17 Mar, 2014 [facility] [address] [id number] [place] [address]- 1127 Mar, [facility] [address] [id number] [place] [address]- 6584 Mar, [facility] [address] [id number] [place] [address]- 1848 Mar, [facility] [address] [id number] [place] [address]- 0716 Mar, [facility] [address] [id number] [place] [address]- 5293 Mar, [facility] [address] [id number] [place] [address]- 6872 Mar, [facility] [address] [id number] [place] [address]- 0731 Feb, [facility] [address] [id number] [place] [address]- 4854 Feb, [facility] [address] [id number] [place] [address]- 9121 Feb, [facility] [address] [id number] [place] [address]- 0841 Feb, [facility] [address] [id number] [place] [address]- 1997 Feb, [facility] [address] [id number] [place] [address]- 8444 Feb, [facility] [address] [id number] [place] [address]- 6870 Feb, [facility] [address] [id number] [place] [address]- 7724 Feb, [facility] [address] [id number] [place] [address]- 1783 Dec, [facility] [address] [id number] [place] [address]- 4319 Dec, [facility] [address] [id number] [place] [address]- 3567 Dec, [facility] [address] [id number] [place] [address]- 5094 Dec, [facility] [address] [id number] [place] [address]- 3007 Nov, [facility] [address] [id number] [place] [address]- 8888 Nov, [facility] [address] [facility] [id number] [place] [address]- 8384 Nov, [facility] [address] [facility] [id number] [place] [address]- 1195 Nov, [facility] [address] [facility] [id number] [place] [address]- 5265 Nov, [facility] [address] [facility] [id number] [place] [address]- 3609 Nov, [facility] [address] [facility] [id number] [place] [address]- 9395 Nov, [facility] [address] [id number] [place] [address]- 5629 Oct, [facility] [address] [id number] [place] [address]- 0837 Oct, [facility] [address] [id number] [place] [address]- 9843 Oct, [facility] [address] [id number] [place] [address]- 7567 Oct, [facility] [address] [id number] [place] [address]- 2720 Sep, [facility] [address] [id number] [place] [address]- 4192 Sep, [facility] [address] [id number] [place] [address]- 6502 Aug, [facility] [address] [id number] [place] [address]- 9037 Aug, [facility] [address] [id number] [place] [address]- 3429 Aug, [facility] [address] [id number] [place] [address]- 2560 Aug, [facility] [address] [id number] [place] [address]- 1360 Aug, [facility] [address] [id number] [place] [address]- 3398 Aug, [facility] [address] [id number] [place] [address]- 5022 Aug, [facility]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
--- OUTSIDE RECORDS SUMMARY | 2018-06-07 12:24 | XMS REPORT | Continuity of Care Document ---
Author Author [facility] Address Unknown Phone Unavailable Allergies Active Description Code Type Severity Reaction Onset Reported/Identified Relationship to Patient Clinical Status Yes penicillin G [id number] Drug Allergy Unknown N/A 01/21/2006 Yes YEAST YEAST Unknown N/A 01/21/2006 Yes Penicillins [id number] Drug Allergy Mild N/A 12/15/2008 Yes yeast [id number] Drug Allergy Mild N/A 02/21/2009 Yes yeast, dried [id number] Drug Allergy Mild N/A 02/21/2009 Yes Penicillins Drug Allergy N/A N/A 08/29/2009 Yes Vicodin Drug Allergy N/A N/A 08/29/2009 Yes Penicillins Drug Allergy 08/29/2009 Yes Vicodin Drug Allergy 08/29/2009 Yes amitriptyline Drug Allergy N/ A N/A 05/16/2010 Yes amitriptyline Drug Allergy 05/16/2010 Yes gabapentin Drug Allergy 07/23/2010 Yes Flonase Drug Allergy N/A N/A 02/20/2011 Yes Flonase Drug Allergy 02/20/2011 Yes hydrocodone-acetaminophen 7.5-325 mg tablet Drug Allergy N/A N/A 2012 Yes hydrocodone-acetaminophen 7.5-325 mg tablet Drug Allergy 11/08/2012 Yes Klonopin Drug Allergy N/A N/A 11/11/2012 Yes Klonopin Drug Allergy 11/11/2012 Yes Penicillins [id number] Drug Allergy Severe CARDIAC ARREST 07/09/2016 Medications There is no data. Problems Date Dx Coded Attending Type Code Diagnosis Diagnosed By 04/01/2008 ELISEO BENDER APRN 719.46 Pain In Joint Involving Lower Leg 04/01/2008 ELISEO BENDER APRN 719.46 Pain In Joint Involving Lower Leg 04/01/2008 SUAD ZUNIGA, MOE 719.46 Pain In Joint Involving Lower Leg 04/01/2008 YULIA MEMBERSHIP ADVISOR, ELISEO S 719.46 Pain In Joint Involving Lower Leg 04/01/2008 LAVINIA BENDER APRNNDA S 719.46 Pain In Joint Involving Lower Leg 04/01/2008 LAVINIA BENDER APRNNDA S 719.46 Pain In Joint Involving Lower Leg 04/01/2008 719.46 Pain In Joint Involving Lower Leg 04/01/2008 719.46 Pain In Joint Involving Lower Leg 04/01/2008 719.46 Pain In Joint Involving Lower Leg 04/01/2008 719.46 Pain In Joint Involving Lower Leg 04/01/2008 719.46 Pain In Joint Involving Lower Leg 04/01/2008 LAVINIA BENDER APRNNDA S 719.46 Pain In Joint Involving Lower Leg 04/01/2008 LAVINIA BENDER APRNNDA S 719.46 Pain In Joint Involving Lower Leg 04/01/2008 CASTRO POWELL DO K 719.46 Pain In Joint Involving Lower Leg 04/01/2008 CASTRO POWELL DO K 719.46 Pain In Joint Involving Lower Leg 04/01/2008 LAVINIA BENDER APRNNDA S 719.46 Pain In Joint Involving Lower Leg 04/01/2008 LAVINIA BENDER APRNNDA S 719.46 Pain In Joint Involving Lower Leg 04/01/2008 LAVINIA BENDER APRNNDA S 719.46 Pain In Joint Involving Lower Leg 04/01/2008 LAVINIA BENDER APRNNDA S 719.46 Pain In Joint Involving Lower Leg 04/01/2008 MOE BORJAS MD 719.46 Pain In Joint Involving Lower Leg 04/01/2008 MOE BORJAS MD 719.46 Pain In Joint Involving Lower Leg 04/01/2008 LAVINIA BENDER APRNNDA S 719.46 Pain In Joint Involving Lower Leg 04/01/2008 LAVINIA BENDER APRNNDA S 719.46 Pain In Joint Involving Lower Leg 04/01/2008 LAVINIA BENDER APRNNDA S 719.46 Pain In Joint Involving Lower Leg 04/01/2008 LAVINIA BENDER APRNNDA S 719.46 Pain In Joint Involving Lower Leg 04/01/2008 LAVINIA BENDER APRNNDA S 719.46 Pain In Joint Involving Lower Leg 04/01/2008 ELISEO BENDER APRN S 719.46 Pain In Joint Involving Lower Leg 04/20/2008 ELISEO BENDER APRN S 782.3 Soft Tissue Swelling (non-joint) [sx] 04/20/2008 ELISEO BENDER APRN S 782.3 Soft Tissue Swelling (non-joint) [sx] 04/20/2008 MOE BORJAS MD 782.3 Soft Tissue Swelling (non-joint) [sx] 04/20/2008 ELISEO BENDER APRN S 782.3 Soft Tissue Swelling (non-joint) [sx] 04/20/2008 ELISEO BENDER APRN S 782.3 Soft Tissue Swelling (non-joint) [sx] 04/20/2008 ELISEO BENDER APRN S 782.3 Soft Tissue Swelling (non-joint) [sx] 04/20/2008 782.3 Soft Tissue Swelling (non-joint) [sx] 04/20/2008 782.3 Soft Tissue Swelling (non-joint) [sx] 04/20/2008 782.3 Soft Tissue Swelling (non-joint) [sx] 04/20/2008 782.3 Soft Tissue Swelling (non-joint) [sx] 04/20/2008 782.3 Soft Tissue Swelling (non-joint) [sx] 04/20/2008 ELISEO BENDER APRN S 782.3 Soft Tissue Swelling (non-joint) [sx] 04/20/2008 ARLENE BENDER APRNA S 782.3 Soft Tissue Swelling (non-joint) [sx] 04/20/2008 POWELL DO, CASTRO K 782.3 Soft Tissue Swelling (non-joint) [sx] 04/20/2008 POWELL DO, CASTRO K 782.3 Soft Tissue Swelling (non-joint) [sx] 04/20/2008 ARLENE BENDER APRNA S 782.3 Soft Tissue Swelling (non-joint) [sx] 04/20/2008 ARLENE BENDER APRNA S 782.3 Soft Tissue Swelling (non-joint) [sx] 04/20/2008 YULIA MEMBERSHIP ADVISOR, ELISEO S 782.3 Soft Tissue Swelling (non-joint) [sx] 04/20/2008 YULIA NGUYEN, ELISEO S 782.3 Soft Tissue Swelling (non-joint) [sx] 04/20/2008 MOE BORJAS MD 782.3 Soft Tissue Swelling (non-joint) [sx] 04/20/2008 MOE BORJAS MD 782.3 Soft Tissue Swelling (non-joint) [sx] 04/20/2008 LAVINIA BENDER APRNNDA S 782.3 Soft Tissue Swelling (non-joint) [sx] 04/20/2008 YULIA NGUYEN, ELISEO S 782.3 Soft Tissue Swelling (non-joint) [sx] 04/20/2008 YULIA NGUYEN, ELISEO S 782.3 Soft Tissue Swelling (non-joint) [sx] 04/20/2008 ARLENE BENDER APRNA S 782.3 Soft Tissue Swelling (non-joint) [sx] 04/20/2008 YULIA NGUYEN, ELISEO S 782.3 Soft Tissue Swelling (non-joint) [sx] 04/20/2008 YULIA NGUYEN, ELISEO S 782.3 Soft Tissue Swelling (non-joint) [sx] 04/21/2008 YULIA NGUYEN, ELISEO S 272.4 HYPERLIPIDEMIA UNSPECIFIED 04/21/2008 YULIA NGUYEN, ELISEO S 461.9 Sinusitis Acute 04/21/2008 YULIA NGUYEN, ELISEO S 790.29 Prediabetes 04/21/2008 YULIA NGUYEN, ELISEO S 272.4 HYPERLIPIDEMIA UNSPECIFIED 04/21/2008 YULIA NGUYEN, ELISEO S 461.9 Sinusitis Acute 04/21/2008 YULIA NGUYEN, ELISEO S 790.29 Prediabetes 04/21/2008 MOE BORJAS MD 272.4 HYPERLIPIDEMIA UNSPECIFIED 04/21/2008 MOE BORJAS MD 461.9 Sinusitis Acute 04/21/2008 MOE BORJAS MD 790.29 Prediabetes 04/21/2008 LAVINIA BENDER APRNNDA S 272.4 HYPERLIPIDEMIA UNSPECIFIED 04/21/2008 YULIA NGUYEN, ELISEO S 461.9 Sinusitis Acute 04/21/2008 YULIA NGUYEN, ELISEO S 790.29 Prediabetes 04/21/2008 YULIA NGUYEN, ELISEO S 272.4 HYPERLIPIDEMIA UNSPECIFIED 04/21/2008 YULIA MEMBERSHIP ADVISOR, ELISEO S 461.9 Sinusitis Acute 04/21/2008 YULIA GNUYEN, ELISEO S 790.29 Prediabetes 04/21/2008 YULIA NGUYEN, ELISEO S 272.4 HYPERLIPIDEMIA UNSPECIFIED 04/21/2008 YULIA NGUYEN, ELISEO S 461.9 Sinusitis Acute 04/21/2008 YULIA NGUYEN, ELISEO S 790.29 Prediabetes 04/21/2008 272.4 HYPERLIPIDEMIA UNSPECIFIED 04/21/2008 461.9 Sinusitis Acute 04/21/2008 790.29 Prediabetes 04/21/2008 272.4 HYPERLIPIDEMIA UNSPECIFIED 04/21/2008 461.9 Sinusitis Acute 04/21/2008 790.29 Prediabetes 04/21/2008 272.4 HYPERLIPIDEMIA UNSPECIFIED 04/21/2008 461.9 Sinusitis Acute 04/21/2008 790.29 Prediabetes 04/21/2008 272.4 HYPERLIPIDEMIA UNSPECIFIED 04/21/2008 461.9 Sinusitis Acute 04/21/2008 790.29 Prediabetes 04/21/2008 272.4 HYPERLIPIDEMIA UNSPECIFIED 04/21/2008 461.9 Sinusitis Acute 04/21/2008 790.29 Prediabetes 04/21/2008 YULIA NGUYEN, ELISEO S 272.4 HYPERLIPIDEMIA UNSPECIFIED 04/21/2008 YULIA NGUYEN, ELISEO S 461.9 Sinusitis Acute 04/21/2008 YULIA NGUYEN, ELISEO S 790.29 Prediabetes 04/21/2008 YULIA NGUYEN, ELISEO S 272.4 HYPERLIPIDEMIA UNSPECIFIED 04/21/2008 YULIA NGUYEN, ELISEO S 461.9 Sinusitis Acute 04/21/2008 YULIA NGUYEN, ELISEO S 790.29 Prediabetes 04/21/2008 POWELL DO, CASTRO K 272.4 HYPERLIPIDEMIA UNSPECIFIED 04/21/2008 POWELL DO, CASTRO K 461.9 Sinusitis Acute 04/21/2008 POWELL DO, CASTRO K 790.29 Prediabetes 04/21/2008 POWELL DO, CASTRO K 272.4 HYPERLIPIDEMIA UNSPECIFIED 04/21/2008 POWELL DO, CASTRO K 461.9 Sinusitis Acute 04/21/2008 POWELL DO, CASTRO K 790.29 Prediabetes 04/21/2008 YULIA MEMBERSHIP ADVISOR, ELISEO S 272.4 HYPERLIPIDEMIA UNSPECIFIED 04/21/2008 YULIA MEMBERSHIP ADVISOR, ELISEO S 461.9 Sinusitis Acute 04/21/2008 YULIA MEMBERSHIP ADVISOR, ELISEO S 790.29 Prediabetes 04/21/2008 YULIA MEMBERSHIP ADVISOR, ELISEO S 272.4 HYPERLIPIDEMIA UNSPECIFIED 04/21/2008 YULIA MEMBERSHIP ADVISOR, ELISEO S 461.9 Sinusitis Acute 04/21/2008 YULIA MEMBERSHIP ADVISOR, ELISEO S 790.29 Prediabetes 04/21/2008 YULIA MEMBERSHIP ADVISOR, ELISEO S 272.4 HYPERLIPIDEMIA UNSPECIFIED 04/21/2008 YULIA MEMBERSHIP ADVISOR, ELISEO S 461.9 Sinusitis Acute 04/21/2008 YULIA MEMBERSHIP ADVISOR, ELISEO S 790.29 Prediabetes 04/21/2008 YULIA MEMBERSHIP ADVISOR, ELISEO S 272.4 HYPERLIPIDEMIA UNSPECIFIED 04/21/2008 YULIA MEMBERSHIP ADVISOR, ELISEO S 461.9 Sinusitis Acute 04/21/2008 YULIA MEMBERSHIP ADVISOR, ELISEO S 790.29 Prediabetes 04/21/2008 MOE BORJAS MD 272.4 HYPERLIPIDEMIA UNSPECIFIED 04/21/2008 MOE BORJAS MD 461.9 Sinusitis Acute 04/21/2008 MOE BORJAS MD 790.29 Prediabetes 04/21/2008 MOE BORJAS MD 272.4 HYPERLIPIDEMIA UNSPECIFIED 04/21/2008 MOE BORJAS MD 461.9 Sinusitis Acute 04/21/2008 MOE BORJAS MD 790.29 Prediabetes 04/21/2008 YULIA MEMBERSHIP ADVISOR, ELISEO S 272.4 HYPERLIPIDEMIA UNSPECIFIED 04/21/2008 YULIA MEMBERSHIP ADVISOR, ELISEO S 461.9 Sinusitis Acute 04/21/2008 YULIA MEMBERSHIP ADVISOR, ELISEO S 790.29 Prediabetes 04/21/2008 YULIA MEMBERSHIP ADVISOR, ELISEO S 272.4 HYPERLIPIDEMIA UNSPECIFIED 04/21/2008 YULIA MEMBERSHIP ADVISOR, ELISEO S 461.9 Sinusitis Acute 04/21/2008 YULIA MEMBERSHIP ADVISOR, ELISEO S 790.29 Prediabetes 04/21/2008 YULIA MEMBERSHIP ADVISOR, ELISEO S 272.4 HYPERLIPIDEMIA UNSPECIFIED 04/21/2008 YULIA MEMBERSHIP ADVISOR, ELISEO S 461.9 Sinusitis Acute 04/21/2008 YULIA MEMBERSHIP ADVISOR, ELISEO S 790.29 Prediabetes 04/21/2008 YULIA MEMBERSHIP ADVISOR, ELISEO S 272.4 HYPERLIPIDEMIA UNSPECIFIED 04/21/2008 YULIA MEMBERSHIP ADVISOR, ELISEO S 461.9 Sinusitis Acute 04/21/2008 YULIA MEMBERSHIP ADVISOR, ELISEO S 790.29 Prediabetes 04/21/2008 YULIA MEMBERSHIP ADVISOR, ELISEO S 272.4 HYPERLIPIDEMIA UNSPECIFIED 04/21/2008 YULIA MEMBERSHIP ADVISOR, ELISEO S 461.9 Sinusitis Acute 04/21/2008 YULIA MEMBERSHIP ADVISOR, ELISEO S 790.29 Prediabetes 04/21/2008 YULIA MEMBERSHIP ADVISOR, ELISEO S 272.4 HYPERLIPIDEMIA UNSPECIFIED 04/21/2008 YULIA MEMBERSHIP ADVISOR, ELISEO S 461.9 Sinusitis Acute 04/21/2008 YULIA MEMBERSHIP ADVISOR, ELISEO S 790.29 Prediabetes 11/07/2008 YULIA MEMBERSHIP ADVISOR, ELISEO S 401.1 ESSENTIAL HYPERTENSION BENIGN 11/07/2008 YULIA MEMBERSHIP ADVISOR, ELISEO S 466.0 Acute Bronchitis 11/07/2008 YULIA MEMBERSHIP ADVISOR, ELISEO S 401.1 ESSENTIAL HYPERTENSION BENIGN 11/07/2008 YULIA MEMBERSHIP ADVISOR, ELISEO S 466.0 Acute Bronchitis 11/07/2008 MOE BORJAS MD 401.1 ESSENTIAL HYPERTENSION BENIGN 11/07/2008 MOE BORJAS MD 466.0 Acute Bronchitis 11/07/2008 YULIA MEMBERSHIP ADVISOR, ELISEO S 401.1 ESSENTIAL HYPERTENSION BENIGN 11/07/2008 YULIA MEMBERSHIP ADVISOR, ELISEO S 466.0 Acute Bronchitis 11/07/2008 YULIA MEMBERSHIP ADVISOR, ELISEO S 401.1 ESSENTIAL HYPERTENSION BENIGN 11/07/2008 YULIA MEMBERSHIP ADVISOR, ELISEO S 466.0 Acute Bronchitis 11/07/2008 YULIA MEMBERSHIP ADVISOR, ELISEO S 401.1 ESSENTIAL HYPERTENSION BENIGN 11/07/2008 YULIA MEMBERSHIP ADVISOR, ELISEO S 466.0 Acute Bronchitis 11/07/2008 401.1 ESSENTIAL HYPERTENSION BENIGN 11/07/2008 466.0 Acute Bronchitis 11/07/2008 401.1 ESSENTIAL HYPERTENSION BENIGN 11/07/2008 466.0 Acute Bronchitis 11/07/2008 401.1 ESSENTIAL HYPERTENSION BENIGN 11/07/2008 466.0 Acute Bronchitis 11/07/2008 401.1 ESSENTIAL HYPERTENSION BENIGN 11/07/2008 466.0 Acute Bronchitis 11/07/2008 401.1 ESSENTIAL HYPERTENSION BENIGN 11/07/2008 466.0 Acute Bronchitis 11/07/2008 YULIA MONTERON, ELISEO S 401.1 ESSENTIAL HYPERTENSION BENIGN 11/07/2008 YULIA MONTERON, ELISEO S 466.0 Acute Bronchitis 11/07/2008 YULIA MONTERON, ELISEO S 401.1 ESSENTIAL HYPERTENSION BENIGN 11/07/2008 YULIA MONTERON, ELISEO S 466.0 Acute Bronchitis 11/07/2008 POWELL DO, CASTRO K 401.1 ESSENTIAL HYPERTENSION BENIGN 11/07/2008 POWELL DO, CASTRO K 466.0 Acute Bronchitis 11/07/2008 POWELL DO, CASTRO K 401.1 ESSENTIAL HYPERTENSION BENIGN 11/07/2008 POWELL DO, CASTRO K 466.0 Acute Bronchitis 11/07/2008 YULIA MEMBERSHIP ADVISOR, ELISEO S 401.1 ESSENTIAL HYPERTENSION BENIGN 11/07/2008 YULIA MONTERON, ELISEO S 466.0 Acute Bronchitis 11/07/2008 YULIA MEMBERSHIP ADVISOR, ELISEO S 401.1 ESSENTIAL HYPERTENSION BENIGN 11/07/2008 YULIA MEMBERSHIP ADVISOR, ELISEO S 466.0 Acute Bronchitis 11/07/2008 YULIA MEMBERSHIP ADVISOR, ELISEO S 401.1 ESSENTIAL HYPERTENSION BENIGN 11/07/2008 YULIA MEMBERSHIP ADVISOR, ELISEO S 466.0 Acute Bronchitis 11/07/2008 YULIA MEMBERSHIP ADVISOR, ELISEO S 401.1 ESSENTIAL HYPERTENSION BENIGN 11/07/2008 YULIA MONTERON, ELISEO S 466.0 Acute Bronchitis 11/07/2008 SUAD ZUNIGA, MOE 401.1 ESSENTIAL HYPERTENSION BENIGN 11/07/2008 SUAD ZUNIGA, MOE 466.0 Acute Bronchitis 11/07/2008 SUAD ZUNIGA, MOE 401.1 ESSENTIAL HYPERTENSION BENIGN 11/07/2008 SUAD ZUNIGA, MOE 466.0 Acute Bronchitis 11/07/2008 YULIA MEMBERSHIP ADVISOR, ELISEO S 401.1 ESSENTIAL HYPERTENSION BENIGN 11/07/2008 YULIA MEMBERSHIP ADVISOR, ELISEO S 466.0 Acute Bronchitis 11/07/2008 YULIA MEMBERSHIP ADVISOR, ELISEO S 401.1 ESSENTIAL HYPERTENSION BENIGN 11/07/2008 YULIA MEMBERSHIP ADVISOR, ELISEO S 466.0 Acute Bronchitis 11/07/2008 YULIA MEMBERSHIP ADVISOR, ELISEO S 401.1 ESSENTIAL HYPERTENSION BENIGN 11/07/2008 YULIA MEMBERSHIP ADVISOR, ELISEO S 466.0 Acute Bronchitis 11/07/2008 YULIA MEMBERSHIP ADVISOR, ELISEO S 401.1 ESSENTIAL HYPERTENSION BENIGN 11/07/2008 YULIA MEMBERSHIP ADVISOR, ELISEO S 466.0 Acute Bronchitis 11/07/2008 YULIA MEMBERSHIP ADVISOR, ELISEO S 401.1 ESSENTIAL HYPERTENSION BENIGN 11/07/2008 YULIA MEMBERSHIP ADVISOR, ELISEO S 466.0 Acute Bronchitis 11/07/2008 YULIA MEMBERSHIP ADVISOR, ELISEO S 401.1 ESSENTIAL HYPERTENSION BENIGN 11/07/2008 YULIA MEMBERSHIP ADVISOR, ELISEO S 466.0 Acute Bronchitis 12/28/2008 YULIA MEMBERSHIP ADVISOR, ELISEO S 401.9 Essential Hypertension 12/28/2008 YULIA MEMBERSHIP ADVISOR, ELISEO S 401.9 Essential Hypertension 12/28/2008 MOE BORJAS MD 401.9 Essential Hypertension 12/28/2008 YULIA MEMBERSHIP ADVISOR, ELISEO S 401.9 Essential Hypertension 12/28/2008 YULIA MEMBERSHIP ADVISOR, ELISEO S 401.9 Essential Hypertension 12/28/2008 YULIA MEMBERSHIP ADVISOR, ELISEO S 401.9 Essential Hypertension 12/28/2008 401.9 Essential Hypertension 12/28/2008 401.9 Essential Hypertension 12/28/2008 401.9 Essential Hypertension 12/28/2008 401.9 Essential Hypertension 12/28/2008 401.9 Essential Hypertension 12/28/2008 YULIA MEMBERSHIP ADVISOR, ELISEO S 401.9 Essential Hypertension 12/28/2008 YULIA MEMBERSHIP ADVISOR, ELISEO S 401.9 Essential Hypertension 12/28/2008 POWELL DO, CASTRO K 401.9 Essential Hypertension 12/28/2008 POWELL DO, CASTRO K 401.9 Essential Hypertension 12/28/2008 YULIA MEMBERSHIP ADVISOR, ELISEO S 401.9 Essential Hypertension 12/28/2008 YULIA MEMBERSHIP ADVISOR, ELISEO S 401.9 Essential Hypertension 12/28/2008 YULIA MEMBERSHIP ADVISOR, ELISEO S 401.9 Essential Hypertension 12/28/2008 YULIA MEMBERSHIP ADVISOR, ELISEO S 401.9 Essential Hypertension 12/28/2008 MOE BORJAS MD 401.9 Essential Hypertension 12/28/2008 MOE BORJAS MD 401.9 Essential Hypertension 12/28/2008 YULIA MEMBERSHIP ADVISOR, ELISEO S 401.9 Essential Hypertension 12/28/2008 YULIA MEMBERSHIP ADVISOR, ELISEO S 401.9 Essential Hypertension 12/28/2008 YULIA MEMBERSHIP ADVISOR, ELISEO S 401.9 Essential Hypertension 12/28/2008 YULIA MEMBERSHIP ADVISOR, ELISEO S 401.9 Essential Hypertension 12/28/2008 YULIA MEMBERSHIP ADVISOR, ELISEO S 401.9 Essential Hypertension 12/28/2008 YULIA MEMBERSHIP ADVISOR, ELISEO S 401.9 Essential Hypertension 01/09/2009 YULIA MEMBERSHIP ADVISOR, ELISEO S 241.0 Thyroid Nodule, Solitary 01/09/2009 YULIA MEMBERSHIP ADVISOR, ELISEO S 241.0 Thyroid Nodule, Solitary 01/09/2009 MOE BORJAS MD 241.0 Thyroid Nodule, Solitary 01/09/2009 YULIA MEMBERSHIP ADVISOR, ELISEO S 241.0 Thyroid Nodule, Solitary 01/09/2009 YULIA MEMBERSHIP ADVISOR, ELISEO S 241.0 Thyroid Nodule, Solitary 01/09/2009 YULIA MEMBERSHIP ADVISOR, ELISEO S 241.0 Thyroid Nodule, Solitary 01/09/2009 241.0 Thyroid Nodule , Solitary 01/09/2009 241.0 Thyroid Nodule , Solitary 01/09/2009 241.0 Thyroid Nodule , Solitary 01/09/2009 241.0 Thyroid Nodule , Solitary 01/09/2009 241.0 Thyroid Nodule , Solitary 01/09/2009 YULIA MEMBERSHIP ADVISOR, ELISEO S 241.0 Thyroid Nodule, Solitary 01/09/2009 YULIA MEMBERSHIP ADVISOR, ELISEO S 241.0 Thyroid Nodule, Solitary 01/09/2009 POWELL DO, CASTRO K 241.0 Thyroid Nodule, Solitary 01/09/2009 POWELL DO, CASTRO K 241.0 Thyroid Nodule, Solitary 01/09/2009 YULIA MEMBERSHIP ADVISOR, ELISEO S 241.0 Thyroid Nodule, Solitary 01/09/2009 YULIA MEMBERSHIP ADVISOR, ELISEO S 241.0 Thyroid Nodule, Solitary 01/09/2009 YULIA MEMBERSHIP ADVISOR, ELISEO S 241.0 Thyroid Nodule, Solitary 01/09/2009 YULIA MEMBERSHIP ADVISOR, ELISEO S 241.0 Thyroid Nodule, Solitary 01/09/2009 SUAD ZUNIGA, MOE 241.0 Thyroid Nodule, Solitary 01/09/2009 SUAD ZUNIGA, MOE 241.0 Thyroid Nodule, Solitary 01/09/2009 YULIA MEMBERSHIP ADVISOR, ELISEO S 241.0 Thyroid Nodule, Solitary 01/09/2009 YULIA MEMBERSHIP ADVISOR, ELISEO S 241.0 Thyroid Nodule, Solitary 01/09/2009 YULIA MEMBERSHIP ADVISOR, ELISEO S 241.0 Thyroid Nodule, Solitary 01/09/2009 YULIA MEMBERSHIP ADVISOR, ELISEO S 241.0 Thyroid Nodule, Solitary 01/09/2009 YULIA MEMBERSHIP ADVISOR, ELISEO S 241.0 Thyroid Nodule, Solitary 01/09/2009 YULIA MEMBERSHIP ADVISOR, ELISEO S 241.0 Thyroid Nodule, Solitary 08/29/2009 YULIA MEMBERSHIP ADVISOR, ELISEO S 240.9 NONTOXIC MULTINODULAR GOITER COLLOID 08/29/2009 YULIA MEMBERSHIP ADVISOR, ELISEO S 368.13 Eye Sensitivity To Light (photophobia) 08/29/2009 YULIA MEMBERSHIP ADVISOR, ELISEO S 788.1 Pain During Urination (dysuria) 08/29/2009 YULIA MEMBERSHIP ADVISOR, ELISEO S 240.9 NONTOXIC MULTINODULAR GOITER COLLOID 08/29/2009 YULIA MEMBERSHIP ADVISOR, ELISEO S 368.13 Eye Sensitivity To Light (photophobia) 08/29/2009 YULIA MEMBERSHIP ADVISOR, ELISEO S 788.1 Pain During Urination (dysuria) 08/29/2009 MOE BORJAS MD 240.9 NONTOXIC MULTINODULAR GOITER COLLOID 08/29/2009 MOE BORJAS MD 368.13 Eye Sensitivity To Light (photophobia) 08/29/2009 SUAD ZUNIGA, MOE 788.1 Pain During Urination (dysuria) 08/29/2009 YULIA MEMBERSHIP ADVISOR, ELISEO S 240.9 NONTOXIC MULTINODULAR GOITER COLLOID 08/29/2009 YULIA MEMBERSHIP ADVISOR, ELISEO S 368.13 Eye Sensitivity To Light (photophobia) 08/29/2009 YULIA MEMBERSHIP ADVISOR, ELISEO S 788.1 Pain During Urination (dysuria) 08/29/2009 YULIA MEMBERSHIP ADVISOR, ELISEO S 240.9 NONTOXIC MULTINODULAR GOITER COLLOID 08/29/2009 YULIA MEMBERSHIP ADVISOR, ELISEO S 368.13 Eye Sensitivity To Light (photophobia) 08/29/2009 YULIA MEMBERSHIP ADVISOR, ELISEO S 788.1 Pain During Urination (dysuria) 08/29/2009 YULIA MEMBERSHIP ADVISOR, ELISEO S 240.9 NONTOXIC MULTINODULAR GOITER COLLOID 08/29/2009 YULIA MEMBERSHIP ADVISOR, ELISEO S 368.13 Eye Sensitivity To Light (photophobia) 08/29/2009 YULIA MEMBERSHIP ADVISOR, ELISEO S 788.1 Pain During Urination (dysuria) 08/29/2009 240.9 NONTOXIC MULTINODULAR GOITER COLLOID 08/29/2009 368.13 Eye Sensitivity To Light (photophobia) 08/29/2009 788.1 Pain During Urination (dysuria) 08/29/2009 240.9 NONTOXIC MULTINODULAR GOITER COLLOID 08/29/2009 368.13 Eye Sensitivity To Light (photophobia) 08/29/2009 788.1 Pain During Urination (dysuria) 08/29/2009 240.9 NONTOXIC MULTINODULAR GOITER COLLOID 08/29/2009 368.13 Eye Sensitivity To Light (photophobia) 08/29/2009 788.1 Pain During Urination (dysuria) 08/29/2009 240.9 NONTOXIC MULTINODULAR GOITER COLLOID 08/29/2009 368.13 Eye Sensitivity To Light (photophobia) 08/29/2009 788.1 Pain During Urination (dysuria) 08/29/2009 240.9 NONTOXIC MULTINODULAR GOITER COLLOID 08/29/2009 368.13 Eye Sensitivity To Light (photophobia) 08/29/2009 788.1 Pain During Urination (dysuria) 08/29/2009 YULIA MEMBERSHIP ADVISOR, ELISEO S 240.9 NONTOXIC MULTINODULAR GOITER COLLOID 08/29/2009 YULIA MEMBERSHIP ADVISOR, ELISEO S 368.13 Eye Sensitivity To Light (photophobia) 08/29/2009 YULIA MEMBERSHIP ADVISOR, ELISEO S 788.1 Pain During Urination (dysuria) 08/29/2009 YULIA MEMBERSHIP ADVISOR, ELISEO S 240.9 NONTOXIC MULTINODULAR GOITER COLLOID 08/29/2009 YULIA MEMBERSHIP ADVISOR, ELISEO S 368.13 Eye Sensitivity To Light (photophobia) 08/29/2009 YULIA MEMBERSHIP ADVISOR, ELISEO S 788.1 Pain During Urination (dysuria) 08/29/2009 POWELL DO, CASTRO K 240.9 NONTOXIC MULTINODULAR GOITER COLLOID 08/29/2009 POWELL DO, CASTRO K 368.13 Eye Sensitivity To Light (photophobia) 08/29/2009 POWELL DO, CASTRO K 788.1 Pain During Urination (dysuria) 08/29/2009 POWELL DO, CASTRO K 240.9 NONTOXIC MULTINODULAR GOITER COLLOID 08/29/2009 POWELL DO, CASTRO K 368.13 Eye Sensitivity To Light (photophobia) 08/29/2009 POWELL DO, CASTRO K 788.1 Pain During Urination (dysuria) 08/29/2009 YULIA MEMBERSHIP ADVISOR, ELISEO S 240.9 NONTOXIC MULTINODULAR GOITER COLLOID 08/29/2009 YULIA MONTERON, ELISEO S 368.13 Eye Sensitivity To Light (photophobia) 08/29/2009 YULIA MEMBERSHIP ADVISOR, ELISEO S 788.1 Pain During Urination (dysuria) 08/29/2009 YULIA MEMBERSHIP ADVISOR, ELISEO S 240.9 NONTOXIC MULTINODULAR GOITER COLLOID 08/29/2009 YULIA MEMBERSHIP ADVISOR, ELISEO S 368.13 Eye Sensitivity To Light (photophobia) 08/29/2009 YULIA MEMBERSHIP ADVISOR, ELISEO S 788.1 Pain During Urination (dysuria) 08/29/2009 YULIA MEMBERSHIP ADVISOR, ELISEO S 240.9 NONTOXIC MULTINODULAR GOITER COLLOID 08/29/2009 YULIA MONTERON, ELISEO S 368.13 Eye Sensitivity To Light (photophobia) 08/29/2009 YULIANANDO MONTERON, ELISEO S 788.1 Pain During Urination (dysuria) 08/29/2009 YULIA [employer]BERSH[employer] ADVISOR, ELISEO S 240.9 NONTOXIC MULTINODULAR GOITER COLLOID 08/29/2009 YULIA MONTERON, ELISEO S 368.13 Eye Sensitivity To Light (photophobia) 08/29/2009 YULIA NGUYEN, ELISEO S 788.1 Pain During Urination (dysuria) 08/29/2009 MOE BORJAS MD 240.9 NONTOXIC MULTINODULAR GOITER COLLOID 08/29/2009 MOE BORJAS MD 368.13 Eye Sensitivity To Light (photophobia) 08/29/2009 MOE BORJAS MD 788.1 Pain During Urination (dysuria) 08/29/2009 MOE BORJAS MD 240.9 NONTOXIC MULTINODULAR GOITER COLLOID 08/29/2009 MOE BORJAS MD 368.13 Eye Sensitivity To Light (photophobia) 08/29/2009 MOE BORJAS MD 788.1 Pain During Urination (dysuria) 08/29/2009 YULIA NGUYEN, ELISEO S 240.9 NONTOXIC MULTINODULAR GOITER COLLOID 08/29/2009 YULIA NGUYEN, ELISEO S 368.13 Eye Sensitivity To Light (photophobia) 08/29/2009 YULIA MONTERON, ELISEO S 788.1 Pain During Urination (dysuria) 08/29/2009 YULIA MONTERON, ELISEO S 240.9 NONTOXIC MULTINODULAR GOITER COLLOID 08/29/2009 YULIA [employer]BERSHIP ADVISOR, ELISEO S 368.13 Eye Sensitivity To Light (photophobia) 08/29/2009 YULIA MEMBERSHIP ADVISOR, ELISEO S 788.1 Pain During Urination (dysuria) 08/29/2009 YULIA MEMBERSHIP ADVISOR, ELISEO S 240.9 NONTOXIC MULTINODULAR GOITER COLLOID 08/29/2009 YULIA MEMBERSHIP ADVISOR, ELISEO S 368.13 Eye Sensitivity To Light (photophobia) 08/29/2009 YULIA NGUYEN, ELISEO S 788.1 Pain During Urination (dysuria) 08/29/2009 YULIA MEMBERSHIP ADVISOR, ELISEO S 240.9 NONTOXIC MULTINODULAR GOITER COLLOID 08/29/2009 YULIA MEMBERSHIP ADVISOR, ELISEO S 368.13 Eye Sensitivity To Light (photophobia) 08/29/2009 YULIA MEMBERSHIP ADVISOR, ELISEO S 788.1 Pain During Urination (dysuria) 08/29/2009 YULIA MEMBERSHIP ADVISOR, ELISEO S 240.9 NONTOXIC MULTINODULAR GOITER COLLOID 08/29/2009 YULIA MEMBERSHIP ADVISOR, ELISEO S 368.13 Eye Sensitivity To Light (photophobia) 08/29/2009 YULIA MEMBERSHIP ADVISOR, ELISEO S 788.1 Pain During Urination (dysuria) 08/29/2009 YULIA MEMBERSHIP ADVISOR, ELISEO S 240.9 NONTOXIC MULTINODULAR GOITER COLLOID 08/29/2009 YULIA MEMBERSHIP ADVISOR, ELISEO S 368.13 Eye Sensitivity To Light (photophobia) 08/29/2009 YULIA MEMBERSHIP ADVISOR, ELISEO S 788.1 Pain During Urination (dysuria) 09/03/2009 YULIA [employer]SH[employer] ADVISOR, ELISEO S 303.90 ALCOHOLISM UNSPECI 09/03/2009 YULIA NGUYEN, ELISEO S 577.0 Acute Pancreatitis 09/03/2009 YULIA MONTERON, ELISEO S 303.90 ALCOHOLISM UNSPECI 09/03/2009 YULIA NGUYEN, ELISEO S 577.0 Acute Pancreatitis 09/03/2009 MOE BORJAS MD 303.90 ALCOHOLISM UNSPECI 09/03/2009 MOE BORJAS MD 577.0 Acute Pancreatitis 09/03/2009 YULIA MONTERON, ELISEO S 303.90 ALCOHOLISM UNSPECI 09/03/2009 YULIA [employer]SH[employer] ADVISOR, ELISEO S 577.0 Acute Pancreatitis 09/03/2009 YULIA MEM[employer]SH[employer] ADVISOR, ELISEO S 303.90 ALCOHOLISM UNSPECI 09/03/2009 YULIA MEMBERSH[employer] ADVISOR, ELISEO S 577.0 Acute Pancreatitis 09/03/2009 YULIA MEMBERSHIP ADVISOR, ELISEO S 303.90 ALCOHOLISM UNSPECI 09/03/2009 YULIA NGUYEN, ELISEO S 577.0 Acute Pancreatitis 09/03/2009 303.90 ALCOHOLISM UNSPECI 09/03/2009 577.0 Acute Pancreatitis 09/03/2009 303.90 ALCOHOLISM UNSPECI 09/03/2009 577.0 Acute Pancreatitis 09/03/2009 303.90 ALCOHOLISM UNSPECI 09/03/2009 577.0 Acute Pancreatitis 09/03/2009 303.90 ALCOHOLISM UNSPECI 09/03/2009 577.0 Acute Pancreatitis 09/03/2009 303.90 ALCOHOLISM UNSPECI 09/03/2009 577.0 Acute Pancreatitis 09/03/2009 YULIA MEMBERSHIP ADVISOR, ELISEO S 303.90 ALCOHOLISM UNSPECI 09/03/2009 YULIA MEMBERSHIP ADVISOR, ELISEO S 577.0 Acute Pancreatitis 09/03/2009 YULIA MEMBERSHIP ADVISOR, ELISEO S 303.90 ALCOHOLISM UNSPECI 09/03/2009 YULIA MEMBERSHIP ADVISOR, ELISEO S 577.0 Acute Pancreatitis 09/03/2009 POWELL DO, CASTRO K 303.90 ALCOHOLISM UNSPECI 09/03/2009 POWELL DO, CASTRO K 577.0 Acute Pancreatitis 09/03/2009 POWELL DO, CASTRO K 303.90 ALCOHOLISM UNSPECI 09/03/2009 POWELL DO, CASTRO K 577.0 Acute Pancreatitis 09/03/2009 YULIA MEMBERSHIP ADVISOR, ELISEO S 303.90 ALCOHOLISM UNSPECI 09/03/2009 YULIA MONTERON, ELISEO S 577.0 Acute Pancreatitis 09/03/2009 YULIA MEMBERSHIP ADVISOR, ELISEO S 303.90 ALCOHOLISM UNSPECI 09/03/2009 YULIA MONTERON, ELISEO S 577.0 Acute Pancreatitis 09/03/2009 YULIA MONTERON, ELISEO S 303.90 ALCOHOLISM UNSPECI 09/03/2009 YULIA MEMBERSHIP ADVISOR, ELISEO S 577.0 Acute Pancreatitis 09/03/2009 YULIA MEMBERSHIP ADVISOR, ELISEO S 303.90 ALCOHOLISM UNSPECI 09/03/2009 YULIA MONTERON, ELISEO S 577.0 Acute Pancreatitis 09/03/2009 SUAD ZUNIGA, MOE 303.90 ALCOHOLISM UNSPECI 09/03/2009 SUAD ZUNIGA, MOE 577.0 Acute Pancreatitis 09/03/2009 SUAD ZUNIGA, MOE 303.90 ALCOHOLISM UNSPECI 09/03/2009 SUAD ZUNIGA, MOE 577.0 Acute Pancreatitis 09/03/2009 YULIA MEMBERSHIP ADVISOR, ELISEO S 303.90 ALCOHOLISM UNSPECI 09/03/2009 YULIA MEMBERSHIP ADVISOR, ELISEO S 577.0 Acute Pancreatitis 09/03/2009 YULIA MEMBERSHIP ADVISOR, ELISEO S 303.90 ALCOHOLISM UNSPECI 09/03/2009 YULIA MEMBERSHIP ADVISOR, ELISEO S 577.0 Acute Pancreatitis 09/03/2009 YULIA MEMBERSHIP ADVISOR, ELISEO S 303.90 ALCOHOLISM UNSPECI 09/03/2009 YULIA MEMBERSHIP ADVISOR, ELISEO S 577.0 Acute Pancreatitis 09/03/2009 YULIA MEMBERSHIP ADVISOR, ELISEO S 303.90 ALCOHOLISM UNSPECI 09/03/2009 YULIA MEMBERSHIP ADVISOR, ELISEO S 577.0 Acute Pancreatitis 09/03/2009 YULIA MEMBERSHIP ADVISOR, ELISEO S 303.90 ALCOHOLISM UNSPECI 09/03/2009 YULIA MEMBERSHIP ADVISOR, ELISEO S 577.0 Acute Pancreatitis 09/03/2009 YULIA MEMBERSHIP ADVISOR, ELISEO S 303.90 ALCOHOLISM UNSPECI 09/03/2009 YULIA MEMBERSHIP ADVISOR, ELISEO S 577.0 Acute Pancreatitis 01/09/2010 YULIA MEMBERSHIP ADVISOR, ELISEO S 414.01 Cad 01/09/2010 YULIA MEMBERSHIP ADVISOR, ELISEO S 414.01 Cad 01/09/2010 MOE BORJAS MD 414.01 Cad 01/09/2010 YULIA MEMBERSHIP ADVISOR, ELISEO S 414.01 Cad 01/09/2010 YULIA MEMBERSHIP ADVISOR, ELISEO S 414.01 Cad 01/09/2010 YULIA MEMBERSHIP ADVISOR, ELISEO S 414.01 Cad 01/09/2010 414.01 Cad 01/09/2010 414.01 Cad 01/09/2010 414.01 Cad 01/09/2010 414.01 Cad 01/09/2010 414.01 Cad 01/09/2010 YULIA MEMBERSHIP ADVISOR, ELISEO S 414.01 Cad 01/09/2010 YULIA MEMBERSHIP ADVISOR, ELISEO S 414.01 Cad 01/09/2010 POWELL DOCASTRO K 414.01 Cad 01/09/2010 POWELL DO CASTRO K 414.01 Cad 01/09/2010 YULIA MEMBERSHIP ADVISOR, ELISEO S 414.01 Cad 01/09/2010 YULIA MEMBERSHIP ADVISOR, ELISEO S 414.01 Cad 01/09/2010 YULIA MEMBERSHIP ADVISOR, ELISEO S 414.01 Cad 01/09/2010 YULIA MEMBERSHIP ADVISOR, ELISEO S 414.01 Cad 01/09/2010 SUAD ZUNIGA, MOE 414.01 Cad 01/09/2010 SUAD ZUNIGA, MOE 414.01 Cad 01/09/2010 YULIA MEMBERSHIP ADVISOR, ELISEO S 414.01 Cad 01/09/2010 YULIA MEMBERSHIP ADVISOR, ELISEO S 414.01 Cad 01/09/2010 YULIA MEMBERSHIP ADVISOR, ELISEO S 414.01 Cad 01/09/2010 YULIA MEMBERSHIP ADVISOR, ELISEO S 414.01 Cad 01/09/2010 YULIA MEMBERSHIP ADVISOR, ELISEO S 414.01 Cad 01/09/2010 YULIA MEMBERSHIP ADVISOR, ELISEO S 414.01 Cad 01/14/2010 YULIA MEMBERSHIP ADVISOR, ELISEO S 218.9 LEIOMYOMA OF UTERUS, UNSPECIFIED 01/14/2010 YULIA MEMBERSHIP ADVISOR, ELISEO S 788.33 MIXED INCONTINENCE (FEMALE) (MALE) 01/14/2010 YULIA MEMBERSHIP ADVISOR, ELISEO S V16.9 FAMILY HISTORY OF UNSPECIFIED MALIGNANT NEOPLASM 01/14/2010 YULIA MEMBERSHIP ADVISOR, ELISEO S 218.9 LEIOMYOMA OF UTERUS, UNSPECIFIED 01/14/2010 YULIA MEMBERSHIP ADVISOR, ELISEO S 788.33 MIXED INCONTINENCE (FEMALE) (MALE) 01/14/2010 YULIA MEMBERSHIP ADVISOR, ELISEO S V16.9 FAMILY HISTORY OF UNSPECIFIED MALIGNANT NEOPLASM 01/14/2010 MOE BORJAS MD 218.9 LEIOMYOMA OF UTERUS, UNSPECIFIED 01/14/2010 MOE BORJAS MD 788.33 MIXED INCONTINENCE (FEMALE) (MALE) 01/14/2010 MOE BORJAS MD V16.9 FAMILY HISTORY OF UNSPECIFIED MALIGNANT NEOPLASM 01/14/2010 YULIA MEMBERSHIP ADVISOR, ELISEO S 218.9 LEIOMYOMA OF UTERUS, UNSPECIFIED 01/14/2010 YULIA MEMBERSHIP ADVISOR, ELISEO S 788.33 MIXED INCONTINENCE (FEMALE) (MALE) 01/14/2010 YULIA MEMBERSHIP ADVISOR, ELISEO S V16.9 FAMILY HISTORY OF UNSPECIFIED MALIGNANT NEOPLASM 01/14/2010 YULIA MEMBERSHIP ADVISOR, ELISEO S 218.9 LEIOMYOMA OF UTERUS, UNSPECIFIED 01/14/2010 YULIA MEMBERSHIP ADVISOR, ELISEO S 788.33 MIXED INCONTINENCE (FEMALE) (MALE) 01/14/2010 YULIA MEMBERSHIP ADVISOR, ELISEO S V16.9 FAMILY HISTORY OF UNSPECIFIED MALIGNANT NEOPLASM 01/14/2010 YULIA MEMBERSHIP ADVISOR, ELISEO S 218.9 LEIOMYOMA OF UTERUS, UNSPECIFIED 01/14/2010 YULIA MEMBERSHIP ADVISOR, ELISEO S 788.33 MIXED INCONTINENCE (FEMALE) (MALE) 01/14/2010 YULIA MEMBERSHIP ADVISOR, ELISEO S V16.9 FAMILY HISTORY OF UNSPECIFIED MALIGNANT NEOPLASM 01/14/2010 218.9 LEIOMYOMA OF UTERUS, UNSPECIFIED 01/14/2010 788.33 MIXED INCONTINENCE (FEMALE) (MALE) 01/14/2010 V16.9 FAMILY HISTORY OF UNSPECIFIED MALIGNANT NEOPLASM 01/14/2010 218.9 LEIOMYOMA OF UTERUS, UNSPECIFIED 01/14/2010 788.33 MIXED INCONTINENCE (FEMALE) (MALE) 01/14/2010 V16.9 FAMILY HISTORY OF UNSPECIFIED MALIGNANT NEOPLASM 01/14/2010 218.9 LEIOMYOMA OF UTERUS, UNSPECIFIED 01/14/2010 788.33 MIXED INCONTINENCE (FEMALE) (MALE) 01/14/2010 V16.9 FAMILY HISTORY OF UNSPECIFIED MALIGNANT NEOPLASM 01/14/2010 218.9 LEIOMYOMA OF UTERUS, UNSPECIFIED 01/14/2010 788.33 MIXED INCONTINENCE (FEMALE) (MALE) 01/14/2010 V16.9 FAMILY HISTORY OF UNSPECIFIED MALIGNANT NEOPLASM 01/14/2010 218.9 LEIOMYOMA OF UTERUS, UNSPECIFIED 01/14/2010 788.33 MIXED INCONTINENCE (FEMALE) (MALE) 01/14/2010 V16.9 FAMILY HISTORY OF UNSPECIFIED MALIGNANT NEOPLASM 01/14/2010 YULIA MEMBERSHIP ADVISOR, ELISEO S 218.9 LEIOMYOMA OF UTERUS, UNSPECIFIED 01/14/2010 YULIA MEMBERSHIP ADVISOR, ELISEO S 788.33 MIXED INCONTINENCE (FEMALE) (MALE) 01/14/2010 YULIA MEMBERSHIP ADVISOR, ELISEO S V16.9 FAMILY HISTORY OF UNSPECIFIED MALIGNANT NEOPLASM 01/14/2010 YULIA MEMBERSHIP ADVISOR, ELISEO S 218.9 LEIOMYOMA OF UTERUS, UNSPECIFIED 01/14/2010 YULIA MEMBERSHIP ADVISOR, ELISEO S 788.33 MIXED INCONTINENCE (FEMALE) (MALE) 01/14/2010 YULIA MEMBERSHIP ADVISOR, ELISEO S V16.9 FAMILY HISTORY OF UNSPECIFIED MALIGNANT NEOPLASM 01/14/2010 POWELL DO, CASTRO K 218.9 LEIOMYOMA OF UTERUS, UNSPECIFIED 01/14/2010 POWELL DO, CASTRO K 788.33 MIXED INCONTINENCE (FEMALE) (MALE) 01/14/2010 POWELL DO, CASTRO K V16.9 FAMILY HISTORY OF UNSPECIFIED MALIGNANT NEOPLASM 01/14/2010 POWELL DO, CASTRO K 218.9 LEIOMYOMA OF UTERUS, UNSPECIFIED 01/14/2010 POWELL DO, CASTRO K 788.33 MIXED INCONTINENCE (FEMALE) (MALE) 01/14/2010 POWELL DO, CASTRO K V16.9 FAMILY HISTORY OF UNSPECIFIED MALIGNANT NEOPLASM 01/14/2010 YULIA MEMBERSHIP ADVISOR, ELISEO S 218.9 LEIOMYOMA OF UTERUS, UNSPECIFIED 01/14/2010 YULIA MEMBERSHIP ADVISOR, ELISEO S 788.33 MIXED INCONTINENCE (FEMALE) (MALE) 01/14/2010 YULIA MEMBERSHIP ADVISOR, ELISEO S V16.9 FAMILY HISTORY OF UNSPECIFIED MALIGNANT NEOPLASM 01/14/2010 YULIA MEMBERSHIP ADVISOR, ELISEO S 218.9 LEIOMYOMA OF UTERUS, UNSPECIFIED 01/14/2010 YULIA MEMBERSHIP ADVISOR, ELISEO S 788.33 MIXED INCONTINENCE (FEMALE) (MALE) 01/14/2010 YULIA MEMBERSHIP ADVISOR, ELISEO S V16.9 FAMILY HISTORY OF UNSPECIFIED MALIGNANT NEOPLASM 01/14/2010 YULIA MEMBERSHIP ADVISOR, ELISEO S 218.9 LEIOMYOMA OF UTERUS, UNSPECIFIED 01/14/2010 YULIA MEMBERSHIP ADVISOR, ELISEO S 788.33 MIXED INCONTINENCE (FEMALE) (MALE) 01/14/2010 YULIA MEMBERSHIP ADVISOR, ELISEO S V16.9 FAMILY HISTORY OF UNSPECIFIED MALIGNANT NEOPLASM 01/14/2010 YULIA MEMBERSHIP ADVISOR, ELISEO S 218.9 LEIOMYOMA OF UTERUS, UNSPECIFIED 01/14/2010 YULIA MEMBERSHIP ADVISOR, ELISEO S 788.33 MIXED INCONTINENCE (FEMALE) (MALE) 01/14/2010 YULIA MEMBERSHIP ADVISOR, ELISEO S V16.9 FAMILY HISTORY OF UNSPECIFIED MALIGNANT NEOPLASM 01/14/2010 SUAD ZUNIGA, MOE 218.9 LEIOMYOMA OF UTERUS, UNSPECIFIED 01/14/2010 MOE BORJAS MD 788.33 MIXED INCONTINENCE (FEMALE) (MALE) 01/14/2010 MOE BORJAS MD V16.9 FAMILY HISTORY OF UNSPECIFIED MALIGNANT NEOPLASM 01/14/2010 MOE BORJAS MD 218.9 LEIOMYOMA OF UTERUS, UNSPECIFIED 01/14/2010 MOE BORJAS MD 788.33 MIXED INCONTINENCE (FEMALE) (MALE) 01/14/2010 MOE BORJAS MD V16.9 FAMILY HISTORY OF UNSPECIFIED MALIGNANT NEOPLASM 01/14/2010 YULIA MEMBERSHIP ADVISOR, ELISEO S 218.9 LEIOMYOMA OF UTERUS, UNSPECIFIED 01/14/2010 YULIA MEMBERSHIP ADVISOR, ELISEO S 788.33 MIXED INCONTINENCE (FEMALE) (MALE) 01/14/2010 YULIA MEMBERSHIP ADVISOR, ELISEO S V16.9 FAMILY HISTORY OF UNSPECIFIED MALIGNANT NEOPLASM 01/14/2010 YULIA MEMBERSHIP ADVISOR, ELISEO S 218.9 LEIOMYOMA OF UTERUS, UNSPECIFIED 01/14/2010 YULIA MEMBERSHIP ADVISOR, ELISEO S 788.33 MIXED INCONTINENCE (FEMALE) (MALE) 01/14/2010 YULIA MEMBERSHIP ADVISOR, ELISEO S V16.9 FAMILY HISTORY OF UNSPECIFIED MALIGNANT NEOPLASM 01/14/2010 YULIA MEMBERSHIP ADVISOR, ELISEO S 218.9 LEIOMYOMA OF UTERUS, UNSPECIFIED 01/14/2010 YULIA MEMBERSHIP ADVISOR, ELISEO S 788.33 MIXED INCONTINENCE (FEMALE) (MALE) 01/14/2010 YULIA MEMBERSHIP ADVISOR, ELISEO S V16.9 FAMILY HISTORY OF UNSPECIFIED MALIGNANT NEOPLASM 01/14/2010 YULIA MEMBERSHIP ADVISOR, ELISEO S 218.9 LEIOMYOMA OF UTERUS, UNSPECIFIED 01/14/2010 YULIA MEMBERSHIP ADVISOR, ELISEO S 788.33 MIXED INCONTINENCE (FEMALE) (MALE) 01/14/2010 YULIA MEMBERSHIP ADVISOR, ELISEO S V16.9 FAMILY HISTORY OF UNSPECIFIED MALIGNANT NEOPLASM 01/14/2010 YULIA MEMBERSHIP ADVISOR, ELISEO S 218.9 LEIOMYOMA OF UTERUS, UNSPECIFIED 01/14/2010 YULIA MEMBERSHIP ADVISOR, ELISEO S 788.33 MIXED INCONTINENCE (FEMALE) (MALE) 01/14/2010 YULIA MEMBERSHIP ADVISOR, ELISEO S V16.9 FAMILY HISTORY OF UNSPECIFIED MALIGNANT NEOPLASM 01/14/2010 YULIA MEMBERSHIP ADVISOR, ELISEO S 218.9 LEIOMYOMA OF UTERUS, UNSPECIFIED 01/14/2010 YULIA MEMBERSHIP ADVISOR, ELISEO S 788.33 MIXED INCONTINENCE (FEMALE) (MALE) 01/14/2010 YULIA MEMBERSHIP ADVISOR, ELISEO S V16.9 FAMILY HISTORY OF UNSPECIFIED MALIGNANT NEOPLASM 03/02/2010 YULIA MEMBERSHIP ADVISOR, ELISEO S 244.9 HYPOTHYROIDISM 03/02/2010 YULIA MEMBERSHIP ADVISOR, ELISEO S 244.9 HYPOTHYROIDISM 03/02/2010 MOE BORJAS MD 244.9 HYPOTHYROIDISM 03/02/2010 YULIA MEMBERSHIP ADVISOR, ELISEO S 244.9 HYPOTHYROIDISM 03/02/2010 YULIA MEMBERSHIP ADVISOR, ELISEO S 244.9 HYPOTHYROIDISM 03/02/2010 YULIA MEMBERSHIP ADVISOR, ELISEO S 244.9 HYPOTHYROIDISM 03/02/2010 244.9 HYPOTHYROIDISM 03/02/2010 244.9 HYPOTHYROIDISM 03/02/2010 244.9 HYPOTHYROIDISM 03/02/2010 244.9 HYPOTHYROIDISM 03/02/2010 244.9 HYPOTHYROIDISM 03/02/2010 YULIA MEMBERSHIP ADVISOR, ELISEO S 244.9 HYPOTHYROIDISM 03/02/2010 YULIA MEMBERSHIP ADVISOR, ELISEO S 244.9 HYPOTHYROIDISM 03/02/2010 POWELL DO, CASTRO K 244.9 HYPOTHYROIDISM 03/02/2010 POWELL DO, CASTRO K 244.9 HYPOTHYROIDISM 03/02/2010 YULIA MEMBERSHIP ADVISOR, ELISEO S 244.9 HYPOTHYROIDISM 03/02/2010 YULIA MEMBERSHIP ADVISOR, ELISEO S 244.9 HYPOTHYROIDISM 03/02/2010 YULIA MEMBERSHIP ADVISOR, ELISEO S 244.9 HYPOTHYROIDISM 03/02/2010 YULIA MEMBERSHIP ADVISOR, ELISEO S 244.9 HYPOTHYROIDISM 03/02/2010 MOE BORJAS MD 244.9 HYPOTHYROIDISM 03/02/2010 MOE BORJAS MD 244.9 HYPOTHYROIDISM 03/02/2010 YULIA MEMBERSHIP ADVISOR, ELISEO S 244.9 HYPOTHYROIDISM 03/02/2010 YULIA MEMBERSHIP ADVISOR, ELISEO S 244.9 HYPOTHYROIDISM 03/02/2010 YULAI MEMBERSHIP ADVISOR, ELISEO S 244.9 HYPOTHYROIDISM 03/02/2010 YULIA MEMBERSHIP ADVISOR, ELISEO S 244.9 HYPOTHYROIDISM 03/02/2010 YULIA MEMBERSHIP ADVISOR, ELISEO S 244.9 HYPOTHYROIDISM 03/02/2010 YULIA NGUYEN ELISEO S 244.9 HYPOTHYROIDISM 03/03/2010 Ot 303.90 03/03/2010 Ot 729.81 03/03/2010 Ot 782.3 03/06/2010 Ot 729.5 03/06/2010 Ot 782.3 03/20/2010 YULIA NGUYEN, ELISEO S 300.00 ANXIETY STATE, UNSPECIFIED 03/20/2010 LAVINIA BENDER APRNNDA S 786.02 Orthopnea 03/20/2010 LAVINIA BENDER APRNNDA S 300.00 ANXIETY STATE, UNSPECIFIED 03/20/2010 YULIA NGUYEN ELISEO S 786.02 Orthopnea 03/20/2010 MOE BORJAS MD 300.00 ANXIETY STATE, UNSPECIFIED 03/20/2010 MOE BORJAS MD 786.02 Orthopnea 03/20/2010 LAVINIA BENDER APRNNDA S 300.00 ANXIETY STATE, UNSPECIFIED 03/20/2010 LAVINIA BENDER APRNNDA S 786.02 Orthopnea 03/20/2010 LAVINIA BENDER APRNNDA S 300.00 ANXIETY STATE, UNSPECIFIED 03/20/2010 LAVINIA BENDER APRNNDA S 786.02 Orthopnea 03/20/2010 LAVINIA BENDER APRNNDA S 300.00 ANXIETY STATE, UNSPECIFIED 03/20/2010 LAVINIA BENDER APRNNDA S 786.02 Orthopnea 03/20/2010 300.00 ANXIETY STATE , UNSPECIFIED 03/20/2010 786.02 Orthopnea 03/20/2010 300.00 ANXIETY STATE , UNSPECIFIED 03/20/2010 786.02 Orthopnea 03/20/2010 300.00 ANXIETY STATE , UNSPECIFIED 03/20/2010 786.02 Orthopnea 03/20/2010 300.00 ANXIETY STATE , UNSPECIFIED 03/20/2010 786.02 Orthopnea 03/20/2010 300.00 ANXIETY STATE , UNSPECIFIED 03/20/2010 786.02 Orthopnea 03/20/2010 LAVINIA BENDER APRNNDA S 300.00 ANXIETY STATE, UNSPECIFIED 03/20/2010 LAVINIA BENDER APRNNDA S 786.02 Orthopnea 03/20/2010 LAVINIA BENDER APRNNDA S 300.00 ANXIETY STATE, UNSPECIFIED 03/20/2010 YULIA MEMBERSHIP ADVISOR, ELISEO S 786.02 Orthopnea 03/20/2010 POWELL DO, CASTRO K 300.00 ANXIETY STATE, UNSPECIFIED 03/20/2010 POWELL DO, CASTRO K 786.02 Orthopnea 03/20/2010 POWELL DO, CASTRO K 300.00 ANXIETY STATE, UNSPECIFIED 03/20/2010 POWELL DO, CASTRO K 786.02 Orthopnea 03/20/2010 YULIA MEMBERSHIP ADVISOR, ELISEO S 300.00 ANXIETY STATE, UNSPECIFIED 03/20/2010 YULIA MEMBERSHIP ADVISOR, ELISEO S 786.02 Orthopnea 03/20/2010 YULIA MEMBERSHIP ADVISOR, ELISEO S 300.00 ANXIETY STATE, UNSPECIFIED 03/20/2010 YULIA MEMBERSHIP ADVISOR, ELISEO S 786.02 Orthopnea 03/20/2010 YULIA MEMBERSHIP ADVISOR, ELISEO S 300.00 ANXIETY STATE, UNSPECIFIED 03/20/2010 YULIA MEMBERSHIP ADVISOR, ELISEO S 786.02 Orthopnea 03/20/2010 YULIA MEMBERSHIP ADVISOR, ELISEO S 300.00 ANXIETY STATE, UNSPECIFIED 03/20/2010 YULIA MEMBERSHIP ADVISOR, ELISEO S 786.02 Orthopnea 03/20/2010 SUAD ZUNIGA, MOE 300.00 ANXIETY STATE, UNSPECIFIED 03/20/2010 SUAD ZUNIGA, MOE 786.02 Orthopnea 03/20/2010 SUAD ZUNIGA, MOE 300.00 ANXIETY STATE, UNSPECIFIED 03/20/2010 SUAD ZUNIGA, MOE 786.02 Orthopnea 03/20/2010 YULIA MEMBERSHIP ADVISOR, ELISEO S 300.00 ANXIETY STATE, UNSPECIFIED 03/20/2010 YULIA MEMBERSHIP ADVISOR, ELISEO S 786.02 Orthopnea 03/20/2010 YULIA MEMBERSHIP ADVISOR, ELISEO S 300.00 ANXIETY STATE, UNSPECIFIED 03/20/2010 YULIA MEMBERSHIP ADVISOR, ELISEO S 786.02 Orthopnea 03/20/2010 YULIA MEMBERSHIP ADVISOR, ELISEO S 300.00 ANXIETY STATE, UNSPECIFIED 03/20/2010 YULIA MEMBERSHIP ADVISOR, ELISEO S 786.02 Orthopnea 03/20/2010 YULIA MEMBERSHIP ADVISOR, ELISEO S 300.00 ANXIETY STATE, UNSPECIFIED 03/20/2010 YULIA MEMBERSHIP ADVISOR, ELISEO S 786.02 Orthopnea 03/20/2010 ELISEO BENDER APRN S 300.00 ANXIETY STATE, UNSPECIFIED 03/20/2010 ARLENE BENDER APRNA S 786.02 Orthopnea 03/20/2010 ARLENE BENDER APRNA S 300.00 ANXIETY STATE, UNSPECIFIED 03/20/2010 ELISEO BENDER APRN S 786.02 Orthopnea 03/24/2010 Ot 303.90 03/24/2010 Ot 786.05 03/24/2010 Ot 786.09 03/24/2010 Ot 786.50 03/25/2010 Ot 272.4 03/25/2010 Ot 300.4 03/25/2010 Ot 303.01 03/25/2010 Ot 357.5 03/25/2010 Ot 401.9 03/25/2010 Ot 496 03/25/2010 Ot 782.3 03/25/2010 Ot 786.50 03/26/2010 Ot 303.00 03/26/2010 Ot 782.3 03/26/2010 Ot 786.05 05/11/2010 Ot 305.00 05/29/2010 ELISEO BENDER APRN S 709.9 Dermatology - Skin Condition 05/29/2010 ELISEO BENDER APRN S 709.9 Dermatology - Skin Condition 05/29/2010 MOE BORJAS MD 709.9 Dermatology - Skin Condition 05/29/2010 ELISEO BENDER APRN S 709.9 Dermatology - Skin Condition 05/29/2010 ELISEO BENDER APRN S 709.9 Dermatology - Skin Condition 05/29/2010 ARLENE BENDER APRNA S 709.9 Dermatology - Skin Condition 05/29/2010 709.9 Dermatology - Skin Condition 05/29/2010 709.9 Dermatology - Skin Condition 05/29/2010 709.9 Dermatology - Skin Condition 05/29/2010 709.9 Dermatology - Skin Condition 05/29/2010 709.9 Dermatology - Skin Condition 05/29/2010 ELISEO BENDER APRN S 709.9 Dermatology - Skin Condition 05/29/2010 ELISEO BENDER APRN S 709.9 Dermatology - Skin Condition 05/29/2010 POWELL DO, CASTRO K 709.9 Dermatology - Skin Condition 05/29/2010 CASTRO POWELL DO K 709.9 Dermatology - Skin Condition 05/29/2010 YULIA MEMBERSHIP ADVISOR, ELISEO S 709.9 Dermatology - Skin Condition 05/29/2010 YULIA MEMBERSHIP ADVISOR, ELISEO S 709.9 Dermatology - Skin Condition 05/29/2010 YULIA MEMBERSHIP ADVISOR, ELISEO S 709.9 Dermatology - Skin Condition 05/29/2010 YULIA MEMBERSHIP ADVISOR, ELISEO S 709.9 Dermatology - Skin Condition 05/29/2010 MOE BORJAS MD 709.9 Dermatology - Skin Condition 05/29/2010 MOE BORJAS MD 709.9 Dermatology - Skin Condition 05/29/2010 YULIA MEMBERSHIP ADVISOR, ELISEO S 709.9 Dermatology - Skin Condition 05/29/2010 YULIA MEMBERSHIP ADVISOR, ELISEO S 709.9 Dermatology - Skin Condition 05/29/2010 YULIA MEMBERSHIP ADVISOR, ELISEO S 709.9 Dermatology - Skin Condition 05/29/2010 YULIA MEMBERSHIP ADVISOR, ELISEO S 709.9 Dermatology - Skin Condition 05/29/2010 YULIA MEMBERSHIP ADVISOR, ELISEO S 709.9 Dermatology - Skin Condition 05/29/2010 YULIA MEMBERSHIP ADVISOR, ELISEO S 709.9 Dermatology - Skin Condition 06/08/2010 Ot 305.00 06/08/2010 Ot 847.0 06/08/2010 Ot 850.9 06/08/2010 Ot 959.01 06/08/2010 Ot E000.8 06/08/2010 Ot E849.0 06/08/2010 Ot E888.9 06/09/2010 Ot 784.0 06/09/2010 Ot 959.01 06/09/2010 Ot E000.8 06/09/2010 Ot E849.0 06/09/2010 Ot E888.9 06/10/2010 LAVINIA BENDER APRNNDA S 173.9 BASAL CELL CARCINOMA -SITE UNSPECIFIED 06/10/2010 YULIA NGUYEN ELISEO S 173.9 BASAL CELL CARCINOMA -SITE UNSPECIFIED 06/10/2010 MOE BORJAS MD 173.9 BASAL CELL CARCINOMA -SITE UNSPECIFIED 06/10/2010 ELISEO BENDER APRN S 173.9 BASAL CELL CARCINOMA -SITE UNSPECIFIED 06/10/2010 YULIA MEMBERSHIP ADVISOR, ELISEO S 173.9 BASAL CELL CARCINOMA -SITE UNSPECIFIED 06/10/2010 YULIA MEMBERSHIP ADVISOR, ELISEO S 173.9 BASAL CELL CARCINOMA -SITE UNSPECIFIED 06/10/2010 173.9 BASAL CELL CARCINOMA -SITE UNSPECIFIED 06/10/2010 173.9 BASAL CELL CARCINOMA -SITE UNSPECIFIED 06/10/2010 173.9 BASAL CELL CARCINOMA -SITE UNSPECIFIED 06/10/2010 173.9 BASAL CELL CARCINOMA -SITE UNSPECIFIED 06/10/2010 173.9 BASAL CELL CARCINOMA -SITE UNSPECIFIED 06/10/2010 YULIA MEMBERSHIP ADVISOR, ELISEO S 173.9 BASAL CELL CARCINOMA -SITE UNSPECIFIED 06/10/2010 YULIA MEMBERSHIP ADVISOR, ELISEO S 173.9 BASAL CELL CARCINOMA -SITE UNSPECIFIED 06/10/2010 POWELL DO CASTRO K 173.9 BASAL CELL CARCINOMA -SITE UNSPECIFIED 06/10/2010 POWELL DO CASTRO K 173.9 BASAL CELL CARCINOMA -SITE UNSPECIFIED 06/10/2010 YULIA MEMBERSHIP ADVISOR, ELISEO S 173.9 BASAL CELL CARCINOMA -SITE UNSPECIFIED 06/10/2010 YULIA MEMBERSHIP ADVISOR, ELISEO S 173.9 BASAL CELL CARCINOMA -SITE UNSPECIFIED 06/10/2010 YULIA MEMBERSHIP ADVISOR, ELISEO S 173.9 BASAL CELL CARCINOMA -SITE UNSPECIFIED 06/10/2010 YULIA MEMBERSHIP ADVISOR, ELISEO S 173.9 BASAL CELL CARCINOMA -SITE UNSPECIFIED 06/10/2010 MOE BORJAS MD 173.9 BASAL CELL CARCINOMA -SITE UNSPECIFIED 06/10/2010 MOE BORJAS MD 173.9 BASAL CELL CARCINOMA -SITE UNSPECIFIED 06/10/2010 YULIA MEMBERSHIP ADVISOR, ELISEO S 173.9 BASAL CELL CARCINOMA -SITE UNSPECIFIED 06/10/2010 YULIA MEMBERSHIP ADVISOR, ELISEO S 173.9 BASAL CELL CARCINOMA -SITE UNSPECIFIED 06/10/2010 YULIA MEMBERSHIP ADVISOR, ELISEO S 173.9 BASAL CELL CARCINOMA -SITE UNSPECIFIED 06/10/2010 YULIA MEMBERSHIP ADVISOR, ELISEO S 173.9 BASAL CELL CARCINOMA -SITE UNSPECIFIED 06/10/2010 YULIA MEMBERSHIP ADVISOR, ELISEO S 173.9 BASAL CELL CARCINOMA -SITE UNSPECIFIED 06/10/2010 YULIA MEMBERSHIP ADVISOR, ELISEO S 173.9 BASAL CELL CARCINOMA -SITE UNSPECIFIED 06/10/2010 Ot 780.4 07/23/2010 YULIA MEMBERSHIP ADVISOR, ELISEO S 780.52 INSOMNIA UNSPECIFIED 07/23/2010 YULIA MEMBERSHIP ADVISOR, ELISEO S 780.52 INSOMNIA UNSPECIFIED 07/23/2010 MOE BORJAS MD 780.52 INSOMNIA UNSPECIFIED 07/23/2010 YULIA MEMBERSHIP ADVISOR, ELISEO S 780.52 INSOMNIA UNSPECIFIED 07/23/2010 YULIA MEMBERSHIP ADVISOR, ELISEO S 780.52 INSOMNIA UNSPECIFIED 07/23/2010 YULIA MEMBERSHIP ADVISOR, ELISEO S 780.52 INSOMNIA UNSPECIFIED 07/23/2010 780.52 INSOMNIA UNSPECIFIED 07/23/2010 780.52 INSOMNIA UNSPECIFIED 07/23/2010 780.52 INSOMNIA UNSPECIFIED 07/23/2010 780.52 INSOMNIA UNSPECIFIED 07/23/2010 780.52 INSOMNIA UNSPECIFIED 07/23/2010 YULIA MEMBERSHIP ADVISOR, ELISEO S 780.52 INSOMNIA UNSPECIFIED 07/23/2010 YULIA MEMBERSHIP ADVISOR, ELISEO S 780.52 INSOMNIA UNSPECIFIED 07/23/2010 POWELL DO, CASTRO K 780.52 INSOMNIA UNSPECIFIED 07/23/2010 POWELL DO, CASTRO K 780.52 INSOMNIA UNSPECIFIED 07/23/2010 YULIA MEMBERSHIP ADVISOR, ELISEO S 780.52 INSOMNIA UNSPECIFIED 07/23/2010 YULIA MEMBERSHIP ADVISOR, ELISEO S 780.52 INSOMNIA UNSPECIFIED 07/23/2010 YULIA MEMBERSHIP ADVISOR, ELISEO S 780.52 INSOMNIA UNSPECIFIED 07/23/2010 YULIA MEMBERSHIP ADVISOR, ELISEO S 780.52 INSOMNIA UNSPECIFIED 07/23/2010 MOE BORJAS MD 780.52 INSOMNIA UNSPECIFIED 07/23/2010 MOE BORJAS MD 780.52 INSOMNIA UNSPECIFIED 07/23/2010 YULIA MEMBERSHIP ADVISOR, ELISEO S 780.52 INSOMNIA UNSPECIFIED 07/23/2010 YULIA MEMBERSHIP ADVISOR, ELISEO S 780.52 INSOMNIA UNSPECIFIED 07/23/2010 YULIA MEMBERSHIP ADVISOR, ELISEO S 780.52 INSOMNIA UNSPECIFIED 07/23/2010 YULIA MEMBERSHIP ADVISOR, ELISEO S 780.52 INSOMNIA UNSPECIFIED 07/23/2010 YULIA MEMBERSHIP ADVISOR, ELISEO S 780.52 INSOMNIA UNSPECIFIED 07/23/2010 YULIA MONTERON, ELISEO S 780.52 INSOMNIA UNSPECIFIED 08/27/2010 YULIA MEMBERSHIP ADVISOR, ELISEO S 719.43 Pain In Joint Involving Forearm 08/27/2010 YULIA MEMBERSHIP ADVISOR, ELISEO S 719.43 Pain In Joint Involving Forearm 08/27/2010 MOE BORJAS MD 719.43 Pain In Joint Involving Forearm 08/27/2010 YULIA MONTERON, ELISEO S 719.43 Pain In Joint Involving Forearm 08/27/2010 YULIA MEMBERSHIP ADVISOR, ELISEO S 719.43 Pain In Joint Involving Forearm 08/27/2010 YULIA MEMBERSHIP ADVISOR, ELISEO S 719.43 Pain In Joint Involving Forearm 08/27/2010 719.43 Pain In Joint Involving Forearm 08/27/2010 719.43 Pain In Joint Involving Forearm 08/27/2010 719.43 Pain In Joint Involving Forearm 08/27/2010 719.43 Pain In Joint Involving Forearm 08/27/2010 719.43 Pain In Joint Involving Forearm 08/27/2010 YULIA MONTERON, ELISEO S 719.43 Pain In Joint Involving Forearm 08/27/2010 YULIA MEMBERSHIP ADVISOR, ELISEO S 719.43 Pain In Joint Involving Forearm 08/27/2010 CASTRO POWELL DO K 719.43 Pain In Joint Involving Forearm 08/27/2010 HOLLIS POWELL DOA K 719.43 Pain In Joint Involving Forearm 08/27/2010 YULIA MEMBERSHIP ADVISOR, ELISEO S 719.43 Pain In Joint Involving Forearm 08/27/2010 YULIA NGUYEN, ELISEO S 719.43 Pain In Joint Involving Forearm 08/27/2010 YULIA MONTERON, ELISEO S 719.43 Pain In Joint Involving Forearm 08/27/2010 YULIA MEMBERSHIP ADVISOR, ELISEO S 719.43 Pain In Joint Involving Forearm 08/27/2010 MOE BORJAS MD 539.43 Pain In Joint Involving Forearm 08/27/2010 MOE BORJAS MD 719.43 Pain In Joint Involving Forearm 08/27/2010 YULIA NGUYEN, ELISEO S 719.43 Pain In Joint Involving Forearm 08/27/2010 YULIA NGUYEN ELISOE S 719.43 Pain In Joint Involving Forearm 08/27/2010 YULIA MEMBERSHIP ADVISOR, ELISEO S 719.43 Pain In Joint Involving Forearm 08/27/2010 YULIA MEMBERSHIP ADVISOR, ELISEO S 719.43 Pain In Joint Involving Forearm 08/27/2010 YULIA MEMBERSHIP ADVISOR, ELISEO S 719.43 Pain In Joint Involving Forearm 08/27/2010 YULIA MEMBERSHIP ADVISOR, ELISEO S 719.43 Pain In Joint Involving Forearm 08/31/2010 Ot 305.00 08/31/2010 Ot 842.00 08/31/2010 Ot 959.3 08/31/2010 Ot E000.8 08/31/2010 Ot E849.0 08/31/2010 Ot E888.9 09/19/2010 Ot 303.01 10/02/2010 YULIA MONTERON, ELISEO S 530.81 Esophageal Reflux 10/02/2010 YULIA NGUYEN, ELISEO S 530.81 Esophageal Reflux 10/02/2010 MOE BORJAS MD 530.81 Esophageal Reflux 10/02/2010 YULIA MONTERON, ELISEO S 530.81 Esophageal Reflux 10/02/2010 Y[employer]IA MEMBERSHIP ADVISOR, ELISEO S 530.81 Esophageal Reflux 10/02/2010 YULIA MEMBERSHIP ADVISOR, ELISEO S 530.81 Esophageal Reflux 10/02/2010 530.81 Esophageal Reflux 10/02/2010 530.81 Esophageal Reflux 10/02/2010 530.81 Esophageal Reflux 10/02/2010 530.81 Esophageal Reflux 10/02/2010 530.81 Esophageal Reflux 10/02/2010 YULIA MONTERON, ELISEO S 530.81 Esophageal Reflux 10/02/2010 YULIA MEMBERSHIP ADVISOR, ELISEO S 530.81 Esophageal Reflux 10/02/2010 POWELL DO, CASTRO K 530.81 Esophageal Reflux 10/02/2010 POWELL DO, CASTRO K 530.81 Esophageal Reflux 10/02/2010 YULIA MEMBERSHIP ADVISOR, ELISEO S 530.81 Esophageal Reflux 10/02/2010 YULIA MEMBERSHIP ADVISOR, ELISEO S 530.81 Esophageal Reflux 10/02/2010 YULIA MEMBERSHIP ADVISOR, ELISEO S 530.81 Esophageal Reflux 10/02/2010 YULIA NGUYEN, ELISEO S 530.81 Esophageal Reflux 10/02/2010 MOE BORJAS MD 530.81 Esophageal Reflux 10/02/2010 SUAD ZUNIGA, MOE 530.81 Esophageal Reflux 10/02/2010 ELISEO BENDER APRN S 530.81 Esophageal Reflux 10/02/2010 ELISEO BENDER APRN S 530.81 Esophageal Reflux 10/02/2010 ELISEO BENDER APRN S 530.81 Esophageal Reflux 10/02/2010 ELISEO BENDER APRN S 530.81 Esophageal Reflux 10/02/2010 ELISEO BENDER APRN S 530.81 Esophageal Reflux 10/02/2010 ELISEO BENDER APRN S 530.81 Esophageal Reflux 11/19/2010 Ot 305.00 ALCOHOL ABUSE-UNSPEC 11/21/2010 Ot 244.9 HYPOTHYROIDISM NOS 11/21/2010 Ot 300.4 DYSTHYMIC DISORDER 11/21/2010 Ot 303.00 AC ALCOHOL INTOX-UNSPEC 11/21/2010 Ot 401.9 HYPERTENSION NOS 11/21/2010 Ot 724.5 BACKACHE NOS 11/21/2010 Ot 966.3 POIS- ANTICONVUL NEC/NOS 11/21/2010 Ot 980.0 TOXIC EFF ETHYL ALCOHOL 11/21/2010 Ot E849.0 ACCIDENT IN HOME 11/21/2010 Ot E855.0 ACC POISN- ANTICONVULSANT 11/21/2010 Ot E860.0 ACC POISN- ALCOHOL BEVRAG 11/21/2010 Ot V58.69 OTH MED,LT, CURRENT USE 11/23/2010 Ot 724.2 LUMBAGO 11/24/2010 Ot 305.00 ALCOHOL ABUSE-UNSPEC 11/24/2010 Ot 724.2 LUMBAGO 11/26/2010 Ot 305.00 ALCOHOL ABUSE-UNSPEC 11/26/2010 Ot 724.5 BACKACHE NOS 11/27/2010 Ot 724.5 BACKACHE NOS 12/02/2010 Ot 305.00 ALCOHOL ABUSE-UNSPEC 12/03/2010 Ot 719.45 JOINT PAIN- PELVIS 12/13/2010 Ot 784.0 HEADACHE 01/08/2011 ELISEO BENDER APRN S E888.9 Unspecified Accidental Fall 01/08/2011 ELISEO BENDER APRN S E888.9 Unspecified Accidental Fall 01/08/2011 MOE BORJAS MD E888.9 Unspecified Accidental Fall 01/08/2011 YULIA MEMBERSHIP ADVISOR, ELISEO S E888.9 Unspecified Accidental Fall 01/08/2011 YULIA MEMBERSHIP ADVISOR, ELISEO S E888.9 Unspecified Accidental Fall 01/08/2011 YULIA MEMBERSHIP ADVISOR, ELISEO S E888.9 Unspecified Accidental Fall 01/08/2011 E888.9 Unspecified Accidental Fall 01/08/2011 E888.9 Unspecified Accidental Fall 01/08/2011 E888.9 Unspecified Accidental Fall 01/08/2011 E888.9 Unspecified Accidental Fall 01/08/2011 E888.9 Unspecified Accidental Fall 01/08/2011 YULIA MEMBERSHIP ADVISOR, ELISEO S E888.9 Unspecified Accidental Fall 01/08/2011 YULIA MEMBERSHIP ADVISOR, ELISEO S E888.9 Unspecified Accidental Fall 01/08/2011 POWELL DO, CASTRO K E888.9 Unspecified Accidental Fall 01/08/2011 POWELL DO, CASTRO K E888.9 Unspecified Accidental Fall 01/08/2011 YULIA MEMBERSHIP ADVISOR, ELISEO S E888.9 Unspecified Accidental Fall 01/08/2011 YULIA MEMBERSHIP ADVISOR, ELISEO S E888.9 Unspecified Accidental Fall 01/08/2011 YULIA MEMBERSHIP ADVISOR, ELISEO S E888.9 Unspecified Accidental Fall 01/08/2011 YULIA MONTERON, ELISEO S E888.9 Unspecified Accidental Fall 01/08/2011 MOE BORJAS MD E888.9 Unspecified Accidental Fall 01/08/2011 MOE BORJAS MD E888.9 Unspecified Accidental Fall 01/08/2011 YULIA MONTERON, ELISEO S E888.9 Unspecified Accidental Fall 01/08/2011 YULIA MONTERON, ELISEO S E888.9 Unspecified Accidental Fall 01/08/2011 YULIA MEMBERSHIP ADVISOR, ELISEO S E888.9 Unspecified Accidental Fall 01/08/2011 YULIA MEMBERSHIP ADVISOR, ELISEO S E888.9 Unspecified Accidental Fall 01/08/2011 YULIA MEMBERSHIP ADVISOR, ELISEO S E888.9 Unspecified Accidental Fall 01/08/2011 YULIA MONTERON, ELISEO S E888.9 Unspecified Accidental Fall 2011 Ot 296.20 DEPRESS DISORDER-UNSPEC 2011 Ot 305.00 ALCOHOL ABUSE-UNSPEC 2011 Ot 972.6 POIS- ANTIHYPERTEN AGENT 2011 Ot E849.0 ACCIDENT IN HOME 2011 Ot E950.4 SUICIDE-DRUG /MEDICIN NEC 2011 Ot V58.69 OTH MED,LT, CURRENT USE 02/06/2011 Ot 244.9 HYPOTHYROIDISM NOS 02/06/2011 Ot 285.9 ANEMIA NOS 02/06/2011 Ot 287.5 THROMBOCYTOPENIA NOS 02/06/2011 Ot 303.00 AC ALCOHOL INTOX-UNSPEC 02/06/2011 Ot 311 DEPRESSIVE DISORDER NEC 02/06/2011 Ot 401.9 HYPERTENSION NOS 02/06/2011 Ot 427.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 02/06/2011 Ot 458.29 OTHER IATROGENIC HYPOTENSION 02/06/2011 Ot 486 PNEUMONIA, ORGANISM NOS 02/06/2011 Ot 780.09 OTHER ALTERATION OF CONSCIOUSNESS 02/06/2011 Ot 786.09 RESPIRATORY ABNORM NEC 02/06/2011 Ot 971.3 POISONING- SYMPATHOLYTICS 02/06/2011 Ot E950.4 SUICIDE-DRUG /MEDICIN NEC 02/27/2011 ELISEO BENDER APRN V58.32 Encounter For Removal Of Sutures 02/27/2011 ELISEO BENDER APRN V58.32 Encounter For Removal Of Sutures 02/27/2011 MOE BORJAS MD V58.32 Encounter For Removal Of Sutures 02/27/2011 ELISEO BENDER APRN V58.32 Encounter For Removal Of Sutures 02/27/2011 ELISEO BENDER APRN V58.32 Encounter For Removal Of Sutures 02/27/2011 ELISEO BENDER APRN V58.32 Encounter For Removal Of Sutures 02/27/2011 V58.32 Encounter For Removal Of Sutures 02/27/2011 V58.32 Encounter For Removal Of Sutures 02/27/2011 V58.32 Encounter For Removal Of Sutures 02/27/2011 V58.32 Encounter For Removal Of Sutures 02/27/2011 V58.32 Encounter For Removal Of Sutures 02/27/2011 ELISEO BENDER APRN V58.32 Encounter For Removal Of Sutures 02/27/2011 ELISEO BENDER APRN V58.32 Encounter For Removal Of Sutures 02/27/2011 POWELL DO, CASTRO K V58.32 Encounter For Removal Of Sutures 02/27/2011 SHERRY CASTRO K V58.32 Encounter For Removal Of Sutures 02/27/2011 YULIA MEMBERSHIP ADVISOR, ELISEO S V58.32 Encounter For Removal Of Sutures 02/27/2011 YULIA MEMBERSHIP ADVISOR, ELISEO S V58.32 Encounter For Removal Of Sutures 02/27/2011 YULIA MEMBERSHIP ADVISOR, ELISEO S V58.32 Encounter For Removal Of Sutures 02/27/2011 YULIA MEMBERSHIP ADVISOR, ELISEO S V58.32 Encounter For Removal Of Sutures 02/27/2011 MOE BORJAS MD V58.32 Encounter For Removal Of Sutures 02/27/2011 MOE BORJAS MD V58.32 Encounter For Removal Of Sutures 02/27/2011 YULIA MEMBERSHIP ADVISOR, ELISEO S V58.32 Encounter For Removal Of Sutures 02/27/2011 YULIA MEMBERSHIP ADVISOR ELISEO S V58.32 Encounter For Removal Of Sutures 02/27/2011 YULIA MEMBERSHIP ADVISOR ELISEO S V58.32 Encounter For Removal Of Sutures 02/27/2011 YULIA MEMBERSHIP ADVISOR, ELISEO S V58.32 Encounter For Removal Of Sutures 02/27/2011 YULIA MEMBERSHIP ADVISOR, ELISEO S V58.32 Encounter For Removal Of Sutures 02/27/2011 YULIA MEMBERSHIP ADVISOR, ELISEO S V58.32 Encounter For Removal Of Sutures 04/07/2011 Ot 724.5 BACKACHE NOS 04/30/2011 YULIA MEMBERSHIP ADVISOR, ELISEO S 724.2 LUMBAGO 04/30/2011 YULIA MEMBERSHIP ADVISOR, ELISEO S 724.4 Thoracic Or Lumbosacral Neuritis Or Radiculitis Unspecified 04/30/2011 YULIA MEMBERSHIP ADVISOR, ELISEO S 726.5 Enthesopathy Of Hip Region 04/30/2011 YULIA MEMBERSHIP ADVISOR, ELISEO S 724.2 LUMBAGO 04/30/2011 YULIA MEMBERSHIP ADVISOR, ELISEO S 724.4 Thoracic Or Lumbosacral Neuritis Or Radiculitis Unspecified 04/30/2011 YULIA MEMBERSHIP ADVISOR, ELISEO S 726.5 Enthesopathy Of Hip Region 04/30/2011 MOE BORJAS MD 724.2 LUMBAGO 04/30/2011 MOE BORJAS MD 724.4 Thoracic Or Lumbosacral Neuritis Or Radiculitis Unspecified 04/30/2011 MOE BORJAS MD 726.5 Enthesopathy Of Hip Region 04/30/2011 YULIA MEMBERSHIP ADVISOR, ELISEO S 724.2 LUMBAGO 04/30/2011 YULIA MEMBERSHIP ADVISOR, ELISEO S 724.4 Thoracic Or Lumbosacral Neuritis Or Radiculitis Unspecified 04/30/2011 YULIA MEMBERSHIP ADVISOR, ELISEO S 726.5 Enthesopathy Of Hip Region 04/30/2011 YULIA MEMBERSHIP ADVISOR, ELISEO S 724.2 LUMBAGO 04/30/2011 YULIA MEMBERSHIP ADVISOR, ELISEO S 724.4 Thoracic Or Lumbosacral Neuritis Or Radiculitis Unspecified 04/30/2011 YULIA MEMBERSHIP ADVISOR, ELISEO S 726.5 Enthesopathy Of Hip Region 04/30/2011 YULIA MEMBERSHIP ADVISOR, ELISEO S 724.2 LUMBAGO 04/30/2011 YULIA MEMBERSHIP ADVISOR, ELISEO S 724.4 Thoracic Or Lumbosacral Neuritis Or Radiculitis Unspecified 04/30/2011 YULIA MEMBERSHIP ADVISOR, ELISEO S 726.5 Enthesopathy Of Hip Region 04/30/2011 724.2 LUMBAGO 04/30/2011 724.4 Thoracic Or Lumbosacral Neuritis Or Radiculitis Unspecified 04/30/2011 726.5 Enthesopathy Of Hip Region 04/30/2011 724.2 LUMBAGO 04/30/2011 724.4 Thoracic Or Lumbosacral Neuritis Or Radiculitis Unspecified 04/30/2011 726.5 Enthesopathy Of Hip Region 04/30/2011 724.2 LUMBAGO 04/30/2011 724.4 Thoracic Or Lumbosacral Neuritis Or Radiculitis Unspecified 04/30/2011 726.5 Enthesopathy Of Hip Region 04/30/2011 724.2 LUMBAGO 04/30/2011 724.4 Thoracic Or Lumbosacral Neuritis Or Radiculitis Unspecified 04/30/2011 726.5 Enthesopathy Of Hip Region 04/30/2011 724.2 LUMBAGO 04/30/2011 724.4 Thoracic Or Lumbosacral Neuritis Or Radiculitis Unspecified 04/30/2011 726.5 Enthesopathy Of Hip Region 04/30/2011 YULIA MEMBERSHIP ADVISOR, ELISEO S 724.2 LUMBAGO 04/30/2011 YULIA MEMBERSHIP ADVISOR, ELISEO S 724.4 Thoracic Or Lumbosacral Neuritis Or Radiculitis Unspecified 04/30/2011 YULIA MEMBERSHIP ADVISOR, ELISEO S 726.5 Enthesopathy Of Hip Region 04/30/2011 YULIA MEMBERSHIP ADVISOR, ELISEO S 724.2 LUMBAGO 04/30/2011 YULIA MEMBERSHIP ADVISOR, ELISEO S 724.4 Thoracic Or Lumbosacral Neuritis Or Radiculitis Unspecified 04/30/2011 YULIA MEMBERSHIP ADVISOR, ELISEO S 726.5 Enthesopathy Of Hip Region 04/30/2011 POWELL DO, CASTRO K 724.2 LUMBAGO 04/30/2011 POWELL DO, CASTRO K 724.4 Thoracic Or Lumbosacral Neuritis Or Radiculitis Unspecified 04/30/2011 POWELL DO, CASTRO K 726.5 Enthesopathy Of Hip Region 04/30/2011 POWELL DO, CASTRO K 724.2 LUMBAGO 04/30/2011 POWELL DO, CASTRO K 724.4 Thoracic Or Lumbosacral Neuritis Or Radiculitis Unspecified 04/30/2011 POWELL DO, CASTRO K 726.5 Enthesopathy Of Hip Region 04/30/2011 YULIA MEMBERSHIP ADVISOR, ELISEO S 724.2 LUMBAGO 04/30/2011 YULIA MEMBERSHIP ADVISOR, ELISEO S 724.4 Thoracic Or Lumbosacral Neuritis Or Radiculitis Unspecified 04/30/2011 YULIA MEMBERSHIP ADVISOR, ELISEO S 726.5 Enthesopathy Of Hip Region 04/30/2011 YULIA MEMBERSHIP ADVISOR, ELISEO S 724.2 LUMBAGO 04/30/2011 YULIA MEMBERSHIP ADVISOR, ELISEO S 724.4 Thoracic Or Lumbosacral Neuritis Or Radiculitis Unspecified 04/30/2011 YULIA MEMBERSHIP ADVISOR, ELISEO S 726.5 Enthesopathy Of Hip Region 04/30/2011 YULIA MEMBERSHIP ADVISOR, ELISEO S 724.2 LUMBAGO 04/30/2011 YULIA MEMBERSHIP ADVISOR, ELISEO S 724.4 Thoracic Or Lumbosacral Neuritis Or Radiculitis Unspecified 04/30/2011 YULIA MEMBERSHIP ADVISOR, ELISEO S 726.5 Enthesopathy Of Hip Region 04/30/2011 YULIA MEMBERSHIP ADVISOR, ELISEO S 724.2 LUMBAGO 04/30/2011 YULIA MEMBERSHIP ADVISOR, ELISEO S 724.4 Thoracic Or Lumbosacral Neuritis Or Radiculitis Unspecified 04/30/2011 YULIA MEMBERSHIP ADVISOR, ELISEO S 726.5 Enthesopathy Of Hip Region 04/30/2011 MOE BORJAS MD 724.2 LUMBAGO 04/30/2011 MOE BORJAS MD 724.4 Thoracic Or Lumbosacral Neuritis Or Radiculitis Unspecified 04/30/2011 MOE BORJAS MD 726.5 Enthesopathy Of Hip Region 04/30/2011 MOE BORJAS MD 724.2 LUMBAGO 04/30/2011 MOE BORJAS MD 724.4 Thoracic Or Lumbosacral Neuritis Or Radiculitis Unspecified 04/30/2011 MOE BORJAS MD 726.5 Enthesopathy Of Hip Region 04/30/2011 YULIA MEMBERSHIP ADVISOR, ELISEO S 724.2 LUMBAGO 04/30/2011 YULIA MEMBERSHIP ADVISOR, ELISEO S 724.4 Thoracic Or Lumbosacral Neuritis Or Radiculitis Unspecified 04/30/2011 YULIA MEMBERSHIP ADVISOR, ELISEO S 726.5 Enthesopathy Of Hip Region 04/30/2011 YULIA MEMBERSHIP ADVISOR, ELISEO S 724.2 LUMBAGO 04/30/2011 YULIA MEMBERSHIP ADVISOR, ELISEO S 724.4 Thoracic Or Lumbosacral Neuritis Or Radiculitis Unspecified 04/30/2011 YULIA MEMBERSHIP ADVISOR, ELISEO S 726.5 Enthesopathy Of Hip Region 04/30/2011 YULIA MEMBERSHIP ADVISOR, ELISEO S 724.2 LUMBAGO 04/30/2011 YULIA MEMBERSHIP ADVISOR, ELISEO S 724.4 Thoracic Or Lumbosacral Neuritis Or Radiculitis Unspecified 04/30/2011 YULIA MEMBERSHIP ADVISOR, ELISEO S 726.5 Enthesopathy Of Hip Region 04/30/2011 YULIA MEMBERSHIP ADVISOR, ELISEO S 724.2 LUMBAGO 04/30/2011 YULIA MEMBERSHIP ADVISOR, ELISEO S 724.4 Thoracic Or Lumbosacral Neuritis Or Radiculitis Unspecified 04/30/2011 YULIA MEMBERSHIP ADVISOR, ELISEO S 726.5 Enthesopathy Of Hip Region 04/30/2011 YULIA MEMBERSHIP ADVISOR, ELISEO S 724.2 LUMBAGO 04/30/2011 YULIA MEMBERSHIP ADVISOR, ELISEO S 724.4 Thoracic Or Lumbosacral Neuritis Or Radiculitis Unspecified 04/30/2011 YULIA MEMBERSHIP ADVISOR, ELISEO S 726.5 Enthesopathy Of Hip Region 04/30/2011 YULIA MEMBERSHIP ADVISOR, ELISEO S 724.2 LUMBAGO 04/30/2011 YULIA MEMBERSHIP ADVISOR, ELISEO S 724.4 Thoracic Or Lumbosacral Neuritis Or Radiculitis Unspecified 04/30/2011 YULIA MEMBERSHIP ADVISOR, ELISEO S 726.5 Enthesopathy Of Hip Region 06/23/2011 YULIA MEMBERSHIP ADVISOR, ELISEO S 384.20 Perforation Of Tympanic Membrane Unspecified 06/23/2011 YULIA MEMBERSHIP ADVISOR, ELISEO S 784.0 Headache 06/23/2011 YULIA MEMBERSHIP ADVISOR, ELISEO S E883.9 Accidental Fall Into Other Hole Or Other Opening In Surface 06/23/2011 YULIA MEMBERSHIP ADVISOR, ELISEO S 384.20 Perforation Of Tympanic Membrane Unspecified 06/23/2011 YULIA MEMBERSHIP ADVISOR, ELISEO S 784.0 Headache 06/23/2011 YULIA MEMBERSHIP ADVISOR, ELISEO S E883.9 Accidental Fall Into Other Hole Or Other Opening In Surface 06/23/2011 MOE BORJAS MD 384.20 Perforation Of Tympanic Membrane Unspecified 06/23/2011 MOE BORJAS MD 784.0 Headache 06/23/2011 MOE BORJAS MD E883.9 Accidental Fall Into Other Hole Or Other Opening In Surface 06/23/2011 YULIA MEMBERSHIP ADVISOR, ELISEO S 384.20 Perforation Of Tympanic Membrane Unspecified 06/23/2011 YULIA MEMBERSHIP ADVISOR, ELISEO S 784.0 Headache 06/23/2011 YULIA MEMBERSHIP ADVISOR, ELISEO S E883.9 Accidental Fall Into Other Hole Or Other Opening In Surface 06/23/2011 YULIA MEMBERSHIP ADVISOR, ELISEO S 384.20 Perforation Of Tympanic Membrane Unspecified 06/23/2011 YULIA MEMBERSHIP ADVISOR, ELISEO S 784.0 Headache 06/23/2011 YULIA MEMBERSHIP ADVISOR, ELISEO S E883.9 Accidental Fall Into Other Hole Or Other Opening In Surface 06/23/2011 YULIA MEMBERSHIP ADVISOR, ELISEO S 384.20 Perforation Of Tympanic Membrane Unspecified 06/23/2011 YULIA MONTERON, ELISEO S 784.0 Headache 06/23/2011 YULIA NGUYEN, ELISEO S E883.9 Accidental Fall Into Other Hole Or Other Opening In Surface 06/23/2011 384.20 Perforation Of Tympanic Membrane Unspecified 06/23/2011 784.0 Headache 06/23/2011 E883.9 Accidental Fall Into Other Hole Or Other Opening In Surface 06/23/2011 384.20 Perforation Of Tympanic Membrane Unspecified 06/23/2011 784.0 Headache 06/23/2011 E883.9 Accidental Fall Into Other Hole Or Other Opening In Surface 06/23/2011 384.20 Perforation Of Tympanic Membrane Unspecified 06/23/2011 784.0 Headache 06/23/2011 E883.9 Accidental Fall Into Other Hole Or Other Opening In Surface 06/23/2011 384.20 Perforation Of Tympanic Membrane Unspecified 06/23/2011 784.0 Headache 06/23/2011 E883.9 Accidental Fall Into Other Hole Or Other Opening In Surface 06/23/2011 384.20 Perforation Of Tympanic Membrane Unspecified 06/23/2011 784.0 Headache 06/23/2011 E883.9 Accidental Fall Into Other Hole Or Other Opening In Surface 06/23/2011 YULIA MEMBERSHIP ADVISOR, ELISEO S 384.20 Perforation Of Tympanic Membrane Unspecified 06/23/2011 YULIA NGUYEN, ELISEO S 784.0 Headache 06/23/2011 YULIA MEMBERSHIP ADVISOR, ELISEO S E883.9 Accidental Fall Into Other Hole Or Other Opening In Surface 06/23/2011 YULIA MEMBERSHIP ADVISOR, ELISEO S 384.20 Perforation Of Tympanic Membrane Unspecified 06/23/2011 YULIA MEMBERSHIP ADVISOR, ELISEO S 784.0 Headache 06/23/2011 YULIA MEMBERSHIP ADVISOR, ELISEO S E883.9 Accidental Fall Into Other Hole Or Other Opening In Surface 06/23/2011 POWELL DO, CASTRO K 384.20 Perforation Of Tympanic Membrane Unspecified 06/23/2011 POWELL DO, CASTRO K 784.0 Headache 06/23/2011 POWELL DO, CASTRO K E883.9 Accidental Fall Into Other Hole Or Other Opening In Surface 06/23/2011 POWELL DO, CASTRO K 384.20 Perforation Of Tympanic Membrane Unspecified 06/23/2011 POWELL DO, CASTRO K 784.0 Headache 06/23/2011 POWELL DO, CASTRO K E883.9 Accidental Fall Into Other Hole Or Other Opening In Surface 06/23/2011 YULIA MEMBERSHIP ADVISOR, ELISEO S 384.20 Perforation Of Tympanic Membrane Unspecified 06/23/2011 YULIA MEMBERSHIP ADVISOR, ELISEO S 784.0 Headache 06/23/2011 YULIA MEMBERSHIP ADVISOR, ELISEO S E883.9 Accidental Fall Into Other Hole Or Other Opening In Surface 06/23/2011 YULIA MEMBERSHIP ADVISOR, ELISEO S 384.20 Perforation Of Tympanic Membrane Unspecified 06/23/2011 YULIA MEMBERSHIP ADVISOR, ELISEO S 784.0 Headache 06/23/2011 YULIA MEMBERSHIP ADVISOR, ELISEO S E883.9 Accidental Fall Into Other Hole Or Other Opening In Surface 06/23/2011 YULIA MEMBERSHIP ADVISOR, ELISEO S 384.20 Perforation Of Tympanic Membrane Unspecified 06/23/2011 YULIA MEMBERSHIP ADVISOR, ELISEO S 784.0 Headache 06/23/2011 YULIA MEMBERSHIP ADVISOR, ELISEO S E883.9 Accidental Fall Into Other Hole Or Other Opening In Surface 06/23/2011 YULIA MEMBERSHIP ADVISOR, ELISEO S 384.20 Perforation Of Tympanic Membrane Unspecified 06/23/2011 YULIA MEMBERSHIP ADVISOR, ELISEO S 784.0 Headache 06/23/2011 YULIA MEMBERSHIP ADVISOR, ELISEO S E883.9 Accidental Fall Into Other Hole Or Other Opening In Surface 06/23/2011 MOE BORJAS MD 384.20 Perforation Of Tympanic Membrane Unspecified 06/23/2011 MOE BORJAS MD 784.0 Headache 06/23/2011 MOE BORJAS MD E883.9 Accidental Fall Into Other Hole Or Other Opening In Surface 06/23/2011 MOE BORJAS MD 384.20 Perforation Of Tympanic Membrane Unspecified 06/23/2011 MOE BORJAS MD 784.0 Headache 06/23/2011 MOE BORJAS MD E883.9 Accidental Fall Into Other Hole Or Other Opening In Surface 06/23/2011 YULIA MEMBERSHIP ADVISOR, ELISEO S 384.20 Perforation Of Tympanic Membrane Unspecified 06/23/2011 YULIA MEMBERSHIP ADVISOR, ELISEO S 784.0 Headache 06/23/2011 YULIA MEMBERSHIP ADVISOR, ELISEO S E883.9 Accidental Fall Into Other Hole Or Other Opening In Surface 06/23/2011 YULIA MEMBERSHIP ADVISOR, ELISEO S 384.20 Perforation Of Tympanic Membrane Unspecified 06/23/2011 YULIA MEMBERSHIP ADVISOR, ELISEO S 784.0 Headache 06/23/2011 YULIA MEMBERSHIP ADVISOR, ELISEO S E883.9 Accidental Fall Into Other Hole Or Other Opening In Surface 06/23/2011 YULIA MEMBERSHIP ADVISOR, ELISEO S 384.20 Perforation Of Tympanic Membrane Unspecified 06/23/2011 YULIA MEMBERSHIP ADVISOR, ELISEO S 784.0 Headache 06/23/2011 YULIA MEMBERSHIP ADVISOR, ELISEO S E883.9 Accidental Fall Into Other Hole Or Other Opening In Surface 06/23/2011 YULIA MEMBERSHIP ADVISOR, ELISEO S 384.20 Perforation Of Tympanic Membrane Unspecified 06/23/2011 YULIA MEMBERSHIP ADVISOR, ELISEO S 784.0 Headache 06/23/2011 YULIA MEMBERSHIP ADVISOR, ELISEO S E883.9 Accidental Fall Into Other Hole Or Other Opening In Surface 06/23/2011 YULIA MEMBERSHIP ADVISOR, ELISEO S 384.20 Perforation Of Tympanic Membrane Unspecified 06/23/2011 YULIA MEMBERSHIP ADVISOR, ELISEO S 784.0 Headache 06/23/2011 YULIA MEMBERSHIP ADVISOR, ELISEO S E883.9 Accidental Fall Into Other Hole Or Other Opening In Surface 06/23/2011 YULIA NGUYEN, ELISEO S 384.20 Perforation Of Tympanic Membrane Unspecified 06/23/2011 YULIA NGUYEN ELISEO S 784.0 Headache 06/23/2011 YULIA NGUYEN ELISEO S E883.9 Accidental Fall Into Other Hole Or Other Opening In Surface 07/23/2011 YULIA NGUYEN ELISEO S 381.81 Dysfunction Of Eustachian Tube 07/23/2011 YULIA NGUYEN, ELISEO S 719.41 Pain In Joint Involving Shoulder Region 07/23/2011 YULIA NGUYEN, ELISEO S 959.2 Other And Unspecified Injury To Shoulder And Upper Arm 07/23/2011 YULIA NGUYEN ELISEO S 381.81 Dysfunction Of Eustachian Tube 07/23/2011 YULIA NGUYEN ELISEO S 719.41 Pain In Joint Involving Shoulder Region 07/23/2011 YULIA NGUYEN ELISEO S 959.2 Other And Unspecified Injury To Shoulder And Upper Arm 07/23/2011 MOE BORJAS MD 381.81 Dysfunction Of Eustachian Tube 07/23/2011 MOE BORJAS MD 719.41 Pain In Joint Involving Shoulder Region 07/23/2011 MOE BORJAS MD 959.2 Other And Unspecified Injury To Shoulder And Upper Arm 07/23/2011 YULIA NGUYEN ELISEO S 381.81 Dysfunction Of Eustachian Tube 07/23/2011 YULIA NGUYEN EILSEO S 719.41 Pain In Joint Involving Shoulder Region 07/23/2011 YULIA NGUYEN, ELISEO S 959.2 Other And Unspecified Injury To Shoulder And Upper Arm 07/23/2011 YULIA NGUYEN, ELISEO S 381.81 Dysfunction Of Eustachian Tube 07/23/2011 YULIA NGUYEN ELISEO S 719.41 Pain In Joint Involving Shoulder Region 07/23/2011 YULIA NGUYEN ELISEO S 959.2 Other And Unspecified Injury To Shoulder And Upper Arm 07/23/2011 YULIA NGUYEN ELISEO S 381.81 Dysfunction Of Eustachian Tube 07/23/2011 YULIA MEMBERSHIP ADVISOR, ELISEO S 719.41 Pain In Joint Involving Shoulder Region 07/23/2011 YULIA MEMBERSHIP ADVISOR, ELISEO S 959.2 Other And Unspecified Injury To Shoulder And Upper Arm 07/23/2011 381.81 Dysfunction Of Eustachian Tube 07/23/2011 719.41 Pain In Joint Involving Shoulder Region 07/23/2011 959.2 Other And Unspecified Injury To Shoulder And Upper Arm 07/23/2011 381.81 Dysfunction Of Eustachian Tube 07/23/2011 719.41 Pain In Joint Involving Shoulder Region 07/23/2011 959.2 Other And Unspecified Injury To Shoulder And Upper Arm 07/23/2011 381.81 Dysfunction Of Eustachian Tube 07/23/2011 719.41 Pain In Joint Involving Shoulder Region 07/23/2011 959.2 Other And Unspecified Injury To Shoulder And Upper Arm 07/23/2011 381.81 Dysfunction Of Eustachian Tube 07/23/2011 719.41 Pain In Joint Involving Shoulder Region 07/23/2011 959.2 Other And Unspecified Injury To Shoulder And Upper Arm 07/23/2011 381.81 Dysfunction Of Eustachian Tube 07/23/2011 719.41 Pain In Joint Involving Shoulder Region 07/23/2011 959.2 Other And Unspecified Injury To Shoulder And Upper Arm 07/23/2011 YULIA MONTERON, ELISEO S 381.81 Dysfunction Of Eustachian Tube 07/23/2011 YULIA MEMBERSHIP ADVISOR, ELISEO S 719.41 Pain In Joint Involving Shoulder Region 07/23/2011 YULIA MONTERON, ELISEO S 959.2 Other And Unspecified Injury To Shoulder And Upper Arm 07/23/2011 YULIA MEMBERSHIP ADVISOR, ELISEO S 381.81 Dysfunction Of Eustachian Tube 07/23/2011 YULIA MEMBERSHIP ADVISOR, ELISEO S 719.41 Pain In Joint Involving Shoulder Region 07/23/2011 YULIA MEMBERSHIP ADVISOR, ELISEO S 959.2 Other And Unspecified Injury To Shoulder And Upper Arm 07/23/2011 POWELL DO, CASTRO K 381.81 Dysfunction Of Eustachian Tube 07/23/2011 POWELL DO, CASTRO K 719.41 Pain In Joint Involving Shoulder Region 07/23/2011 POWELL DO, CASTRO K 959.2 Other And Unspecified Injury To Shoulder And Upper Arm 07/23/2011 POWELL DO, CASTRO K 381.81 Dysfunction Of Eustachian Tube 07/23/2011 POWELL DO, CASTRO K 719.41 Pain In Joint Involving Shoulder Region 07/23/2011 POWELL DO, CASTRO K 959.2 Other And Unspecified Injury To Shoulder And Upper Arm 07/23/2011 [employer] ADVISOR, ELISEO S 381.81 Dysfunction Of Eustachian Tube 07/23/2011 [employer] ADVISOR, ELISEO S 719.41 Pain In Joint Involving Shoulder Region 07/23/2011 [employer] ADVISOR, ELISEO S 959.2 Other And Unspecified Injury To Shoulder And Upper Arm 07/23/2011 [employer] ADVISOR, ELISEO S 381.81 Dysfunction Of Eustachian Tube 07/23/2011 [employer] ADVISOR, ELISEO S 719.41 Pain In Joint Involving Shoulder Region 07/23/2011 [employer] ADVISOR, ELISEO S 959.2 Other And Unspecified Injury To Shoulder And Upper Arm 07/23/2011 [employer] ADVISOR, ELISEO S 381.81 Dysfunction Of Eustachian Tube 07/23/2011 [employer] ADVISOR, ELISEO S 719.41 Pain In Joint Involving Shoulder Region 07/23/2011 [employer] ADVISOR, ELISEO S 959.2 Other And Unspecified Injury To Shoulder And Upper Arm 07/23/2011 [employer] ADVISOR, ELISEO S 381.81 Dysfunction Of Eustachian Tube 07/23/2011 [employer] ADVISOR, ELISEO S 719.41 Pain In Joint Involving Shoulder Region 07/23/2011 [employer] ADVISOR, ELISEO S 959.2 Other And Unspecified Injury To Shoulder And Upper Arm 07/23/2011 MOE BORJAS MD 381.81 Dysfunction Of Eustachian Tube 07/23/2011 MOE BORJAS MD 719.41 Pain In Joint Involving Shoulder Region 07/23/2011 MOE BORJAS MD 959.2 Other And Unspecified Injury To Shoulder And Upper Arm 07/23/2011 MOE BORJAS MD 381.81 Dysfunction Of Eustachian Tube 07/23/2011 MOE BORJAS MD 719.41 Pain In Joint Involving Shoulder Region 07/23/2011 MOE BORJAS MD 959.2 Other And Unspecified Injury To Shoulder And Upper Arm 07/23/2011 [employer] ADVISOR, ELISEO S 381.81 Dysfunction Of Eustachian Tube 07/23/2011 YULIA MEMBERSHIP ADVISOR, ELISEO S 719.41 Pain In Joint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 OR MASS IN BREAST 04/07/2013 YULIA MEMBERSHIP ADVISOR, ELISEO S 621.2 HYPERTROPHY OF UTERUS 04/07/2013 YULIA MEMBERSHIP ADVISOR, ELISEO S V65.49 OTHER SPECIFIED COUNSELING 04/07/2013 YULIA MEMBERSHIP ADVISOR, ELISEO S V73.81 HPV SCREENING 04/07/2013 YULIA MEMBERSHIP ADVISOR, ELISEO S V76.10 BREAST CANCER SCREENING 04/07/2013 YULIA MEMBERSHIP ADVISOR, ELISEO S V76.2 CERVICAL CANCER SCREENING (PAP SMEAR) 04/07/2013 YULIA MEMBERSHIP ADVISOR, ELISEO S 611.72 LUMP OR MASS IN BREAST 04/07/2013 YULIA MEMBERSHIP ADVISOR, ELISEO S 621.2 HYPERTROPHY OF UTERUS 04/07/2013 YULIA MEMBERSHIP ADVISOR, ELISEO S V65.49 OTHER SPECIFIED COUNSELING 04/07/2013 YULIA MEMBERSHIP ADVISOR, ELISEO S V73.81 HPV SCREENING 04/07/2013 YULIA MEMBERSHIP ADVISOR, ELISEO S V76.10 BREAST CANCER SCREENING 04/07/2013 YULIA MEMBERSHIP ADVISOR, ELISEO S V76.2 CERVICAL CANCER SCREENING (PAP SMEAR) 04/07/2013 YULIA MEMBERSHIP ADVISOR, ELISEO S 611.72 LUMP OR MASS IN BREAST 04/07/2013 YULIA MEMBERSHIP ADVISOR, ELISEO S 621.2 HYPERTROPHY OF UTERUS 04/07/2013 YULIA MEMBERSHIP ADVISOR, ELISEO S V65.49 OTHER SPECIFIED COUNSELING 04/07/2013 YULIA MEMBERSHIP ADVISOR, ELISEO S V73.81 HPV SCREENING 04/07/2013 YULIA MEMBERSHIP ADVISOR, ELISEO S V76.10 BREAST CANCER SCREENING 04/07/2013 YULIA MEMBERSHIP ADVISOR, ELISEO S V76.2 CERVICAL CANCER SCREENING (PAP SMEAR) 04/07/2013 YULIA MEMBERSHIP ADVISOR, ELISEO S 611.72 LUMP OR MASS IN BREAST 04/07/2013 YULIA MEMBERSHIP ADVISOR, ELISEO S 621.2 HYPERTROPHY OF UTERUS 04/07/2013 YULIA MEMBERSHIP ADVISOR, ELISEO S V65.49 OTHER SPECIFIED COUNSELING 04/07/2013 YULIA MEMBERSHIP ADVISOR, ELISEO S V73.81 HPV SCREENING 04/07/2013 YULIA MEMBERSHIP ADVISOR, ELISEO S V76.10 BREAST CANCER SCREENING 04/07/2013 YULIA MEMBERSHIP ADVISOR, ELISEO S V76.2 CERVICAL CANCER SCREENING (PAP SMEAR) 04/07/2013 MOE BORJAS MD 611.72 LUMP OR MASS IN BREAST 04/07/2013 MOE BORJAS MD 621.2 HYPERTROPHY OF UTERUS 04/07/2013 MOE BORJAS MD V65.49 OTHER SPECIFIED COUNSELING 04/07/2013 MOE BORJAS MD V73.81 HPV SCREENING 04/07/2013 MOE BORJAS MD V76.10 BREAST CANCER SCREENING 04/07/2013 MOE BORJAS MD V76.2 CERVICAL CANCER SCREENING (PAP SMEAR) 04/07/2013 MOE BORJAS MD 611.72 LUMP OR MASS IN BREAST 04/07/2013 MOE BORJAS MD 621.2 HYPERTROPHY OF UTERUS 04/07/2013 MOE BORJAS MD V65.49 OTHER SPECIFIED COUNSELING 04/07/2013 MOE BORJAS MD V73.81 HPV SCREENING 04/07/2013 MOE BORJAS MD V76.10 BREAST CANCER SCREENING 04/07/2013 MOE BORJAS MD V76.2 CERVICAL CANCER SCREENING (PAP SMEAR) 04/07/2013 YULIA MEMBERSHIP ADVISOR, ELISEO S 611.72 LUMP OR MASS IN BREAST 04/07/2013 YULIA MEMBERSHIP ADVISOR, ELISEO S 621.2 HYPERTROPHY OF UTERUS 04/07/2013 YULIA MEMBERSHIP ADVISOR, ELISEO S V65.49 OTHER SPECIFIED COUNSELING 04/07/2013 YULIA MEMBERSHIP ADVISOR, ELISEO S V73.81 HPV SCREENING 04/07/2013 YULIA MEMBERSHIP ADVISOR, ELISEO S V76.10 BREAST CANCER SCREENING 04/07/2013 YULIA MEMBERSHIP ADVISOR, ELISEO S V76.2 CERVICAL CANCER SCREENING (PAP SMEAR) 04/07/2013 YULIA MEMBERSHIP ADVISOR, ELISEO S 611.72 LUMP OR MASS IN BREAST 04/07/2013 YULIA MEMBERSHIP ADVISOR, ELISEO S 621.2 HYPERTROPHY OF UTERUS 04/07/2013 YULIA MEMBERSHIP ADVISOR, ELISEO S V65.49 OTHER SPECIFIED COUNSELING 04/07/2013 YULIA MEMBERSHIP ADVISOR, ELISEO S V73.81 HPV SCREENING 04/07/2013 YULIA MEMBERSHIP ADVISOR, ELISEO S V76.10 BREAST CANCER SCREENING 04/07/2013 YULIA MEMBERSHIP ADVISOR, ELISEO S V76.2 CERVICAL CANCER SCREENING (PAP SMEAR) 04/07/2013 YULIA MEMBERSHIP ADVISOR, ELISEO S 611.72 LUMP OR MASS IN BREAST 04/07/2013 YULIA MEMBERSHIP ADVISOR, ELISEO S 621.2 HYPERTROPHY OF UTERUS 04/07/2013 YULIA MEMBERSHIP ADVISOR, ELISEO S V65.49 OTHER SPECIFIED COUNSELING 04/07/2013 YULIA MEMBERSHIP ADVISOR, ELISEO S V73.81 HPV SCREENING 04/07/2013 YULIA MEMBERSHIP ADVISOR, ELISEO S V76.10 BREAST CANCER SCREENING 04/07/2013 YULIA MEMBERSHIP ADVISOR, ELISEO S V76.2 CERVICAL CANCER SCREENING (PAP SMEAR) 04/07/2013 YULIA MEMBERSHIP ADVISOR, ELISEO S 611.72 LUMP OR MASS IN BREAST 04/07/2013 YULIA MEMBERSHIP ADVISOR, ELISEO S 621.2 HYPERTROPHY OF UTERUS 04/07/2013 YULIA MEMBERSHIP ADVISOR, ELISEO S V65.49 OTHER SPECIFIED COUNSELING 04/07/2013 YULIA MEMBERSHIP ADVISOR, ELISEO S V73.81 HPV SCREENING 04/07/2013 YULIA MEMBERSHIP ADVISOR, ELISEO S V76.10 BREAST CANCER SCREENING 04/07/2013 YULIA MEMBERSHIP ADVISOR, ELISEO S V76.2 CERVICAL CANCER SCREENING (PAP SMEAR) 04/07/2013 YULIA MEMBERSHIP ADVISOR, ELISEO S 611.72 LUMP OR MASS IN BREAST 04/07/2013 YULIA MEMBERSHIP ADVISOR, ELISEO S 621.2 HYPERTROPHY OF UTERUS 04/07/2013 YULIA MEMBERSHIP ADVISOR, ELISEO S V65.49 OTHER SPECIFIED COUNSELING 04/07/2013 YULIA MEMBERSHIP ADVISOR, ELISEO S V73.81 HPV SCREENING 04/07/2013 YULIA MEMBERSHIP ADVISOR, ELISEO S V76.10 BREAST CANCER SCREENING 04/07/2013 YULIA MEMBERSHIP ADVISOR, ELISEO S V76.2 CERVICAL CANCER SCREENING (PAP SMEAR) 04/07/2013 YULIA MEMBERSHIP ADVISOR, ELISEO S 611.72 LUMP OR MASS IN BREAST 04/07/2013 YULIA MEMBERSHIP ADVISOR, ELISEO S 621.2 HYPERTROPHY OF UTERUS 04/07/2013 YULIA MEMBERSHIP ADVISOR, ELISEO S V65.49 OTHER SPECIFIED COUNSELING 04/07/2013 YULIA MEMBERSHIP ADVISOR, ELISEO S V73.81 HPV SCREENING 04/07/2013 YULIA MEMBERSHIP ADVISOR, ELISEO S V76.10 BREAST CANCER SCREENING 04/07/2013 YULIA MEMBERSHIP ADVISOR, ELISEO S V76.2 CERVICAL CANCER SCREENING (PAP SMEAR) 04/14/2013 EDEL ZUNIGA, DAVID Lopez Ot 789.09 ABDOMINAL PAIN, OTHER SPECIFIED SITE 06/23/2013 YULIA MEMBERSHIP ADVISOR, ELISEO S 356.9 NEUROPATHY 06/23/2013 POWELL DO, CASTRO K 356.9 NEUROPATHY 06/23/2013 POWELL DO, CASTRO K 356.9 NEUROPATHY 06/23/2013 YULIA MEMBERSHIP ADVISOR, ELISEO S 356.9 NEUROPATHY 06/23/2013 YULIA MEMBERSHIP ADVISOR, ELISEO S 356.9 NEUROPATHY 06/23/2013 YULIA MEMBERSHIP ADVISOR, ELISEO S 356.9 NEUROPATHY 06/23/2013 YULIA MEMBERSHIP ADVISOR, ELISEO S 356.9 NEUROPATHY 06/23/2013 MOE BORJAS MD 356.9 NEUROPATHY 06/23/2013 MOE BORJAS MD 356.9 NEUROPATHY 06/23/2013 YULIA MEMBERSHIP ADVISOR, ELISEO S 356.9 NEUROPATHY 06/23/2013 YULIA MEMBERSHIP ADVISOR, ELISEO S 356.9 NEUROPATHY 06/23/2013 YULIA MEMBERSHIP ADVISOR, ELISEO S 356.9 NEUROPATHY 06/23/2013 YULIA MEMBERSHIP ADVISOR, ELISEO S 356.9 NEUROPATHY 06/23/2013 YULIA MEMBERSHIP ADVISOR, ELISEO S 356.9 NEUROPATHY 06/23/2013 YULIA MEMBERSHIP ADVISOR, ELISEO S 356.9 NEUROPATHY 09/05/2013 POWELL DO, CASTRO K V04.81 FLU SHOT 09/05/2013 POWELL DO, CASTRO K V04.81 FLU SHOT 09/05/2013 YULIA MEMBERSHIP ADVISOR, ELISEO S V04.81 FLU SHOT 09/05/2013 YULIA MEMBERSHIP ADVISOR, ELISEO S V04.81 FLU SHOT 09/05/2013 YULIA MEMBERSHIP ADVISOR, ELISEO S V04.81 FLU SHOT 09/05/2013 YULIA MEMBERSHIP ADVISOR, ELISEO S V04.81 FLU SHOT 09/05/2013 MOE BORJAS MD V04.81 FLU SHOT 09/05/2013 MOE BORJAS MD V04.81 FLU SHOT 09/05/2013 YULIA MEMBERSHIP ADVISOR, ELISEO S V04.81 FLU SHOT 09/05/2013 YULIA NGUYEN, ELISEO S V04.81 FLU SHOT 09/05/2013 YULIA MEMBERSHIP ADVISOR, ELISEO S V04.81 FLU SHOT 09/05/2013 YULIA MEMBERSHIP ADVISOR, ELISEO S V04.81 FLU SHOT 09/05/2013 YULIA MEMBERSHIP ADVISOR, ELISEO S V04.81 FLU SHOT 09/05/2013 YULIA MEMBERSHIP ADVISOR, ELISEO S V04.81 FLU SHOT 11/08/2013 JOCELYN ZUNIGA FACC, ALI FACP CCDS Ot 244.9 HYPOTHYROIDISM NOS 11/08/2013 JOCELYN UZNIGA FACC, ALI FACP CCDS Ot 401.9 HYPERTENSION NOS 11/08/2013 JOCELYN ZUNIGA FACC, ALI FACP CCDS Ot 724.2 LUMBAGO 11/08/2013 JOCELYN ZUNIGA FACC, ALI FACP CCDS Ot 786.05 SHORTNESS OF BREATH 11/08/2013 JOCELYN ZUNIGA FACC, ALI FACP CCDS Ot 786.59 CHEST PAIN NEC 11/08/2013 JOCELYN ZUNIGA FACC, ALI FACP CCDS Ot V58.69 OT MED,LT,CURRENT USE 12/12/2013 KENDALL GOODWIN MD Ot 715.31 LOC OSTEOARTH NOS-SHLDER 12/12/2013 KENDALL GOODWIN MD Ot 726.2 SHOULDER REGION DIS NEC 02/07/2014 YULIA MEMBERSHIP ADVISOR, ELISEO S 782.3 EDEMA 02/07/2014 YULIA MEMBERSHIP ADVISOR, ELISEO S 782.3 EDEMA 02/07/2014 MOE BORJAS MD 782.3 EDEMA 02/07/2014 MOE BORJAS MD 782.3 EDEMA 02/07/2014 YULIA MEMBERSHIP ADVISOR, ELISEO S 782.3 EDEMA 02/07/2014 YULIA MEMBERSHIP ADVISOR, ELISEO S 782.3 EDEMA 02/07/2014 YULIA MEMBERSHIP ADVISOR, ELISEO S 782.3 EDEMA 02/07/2014 YULIA MEMBERSHIP ADVISOR, ELISEO S 782.3 EDEMA 02/07/2014 YULIA MEMBERSHIP ADVISOR, ELISEO S 782.3 EDEMA 02/07/2014 YULIA MEMBERSHIP ADVISOR, ELISEO S 782.3 EDEMA 03/21/2014 MOE BORJAS MD 729.1 MYALGIA AND MYOSITIS UNSPECIFIED 03/21/2014 MOE BORJAS MD 786.2 COUGH 03/21/2014 SUAD ZUNIGA, MOE 788.1 DYSURIA 03/21/2014 SUAD ZUNIGA, MOE 729.1 MYALGIA AND MYOSITIS UNSPECIFIED 03/21/2014 SUAD ZUNIGA, MOE 786.2 COUGH 03/21/2014 SUAD ZUNIGA, MOE 788.1 DYSURIA 03/21/2014 YULIA MEMBERSHIP ADVISOR, ELISEO S 729.1 MYALGIA AND MYOSITIS UNSPECIFIED 03/21/2014 YULIA MEMBERSHIP ADVISOR, ELISEO S 786.2 COUGH 03/21/2014 YULIA MEMBERSHIP ADVISOR, ELISEO S 788.1 DYSURIA 03/21/2014 YULIA MEMBERSHIP ADVISOR, ELISEO S 729.1 MYALGIA AND MYOSITIS UNSPECIFIED 03/21/2014 YULIA MEMBERSHIP ADVISOR, ELISEO S 786.2 COUGH 03/21/2014 YULIA MEMBERSHIP ADVISOR, ELISEO S 788.1 DYSURIA 03/21/2014 YULIA MEMBERSHIP ADVISOR, ELISEO S 729.1 MYALGIA AND MYOSITIS UNSPECIFIED 03/21/2014 YULIA MEMBERSHIP ADVISOR, ELISEO S 786.2 COUGH 03/21/2014 YULIA MEMBERSHIP ADVISOR, ELISEO S 788.1 DYSURIA 03/21/2014 YULIA MEMBERSHIP ADVISOR, ELISEO S 729.1 MYALGIA AND MYOSITIS UNSPECIFIED 03/21/2014 YULIA MEMBERSHIP ADVISOR, ELISEO S 786.2 COUGH 03/21/2014 YULIA MEMBERSHIP ADVISOR, ELISEO S 788.1 DYSURIA 03/21/2014 YULIA MEMBERSHIP ADVISOR, ELISEO S 729.1 MYALGIA AND MYOSITIS UNSPECIFIED 03/21/2014 YULIA MEMBERSHIP ADVISOR, ELISEO S 786.2 COUGH 03/21/2014 YULIA MEMBERSHIP ADVISOR, ELISEO S 788.1 DYSURIA 03/21/2014 YULIA MEMBERSHIP ADVISOR, ELISEO S 729.1 MYALGIA AND MYOSITIS UNSPECIFIED 03/21/2014 YULIA MEMBERSHIP ADVISOR, ELISEO S 786.2 COUGH 03/21/2014 YULIA MEMBERSHIP ADVISOR, ELISEO S 788.1 DYSURIA 05/29/2014 YULIA MEMBERSHIP ADVISOR, ELISEO S V76.10 BREAST CANCER SCREENING 05/29/2014 YULIA MEMBERSHIP ADVISOR, ELISEO S V76.10 BREAST CANCER SCREENING 05/29/2014 YULIA MEMBERSHIP ADVISOR, ELISEO S V76.10 BREAST CANCER SCREENING 05/29/2014 YULIA MEMBERSHIP ADVISOR, ELISEO S V76.10 BREAST CANCER SCREENING 05/29/2014 YULIA MEMBERSHIP ADVISOR, ELISEO S V76.10 BREAST CANCER SCREENING 05/29/2014 YULIA MEMBERSHIP ADVISOR, ELISEO S V76.10 BREAST CANCER SCREENING 06/05/2014 YULIA MEMBERSHIP ADVISOR, ELISEO S 780.79 FATIGUE 06/05/2014 YULIA MEMBERSHIP ADVISOR, ELISEO S 780.79 FATIGUE 06/05/2014 YULIA MEMBERSHIP ADVISOR, ELISEO S 780.79 FATIGUE 06/05/2014 YULIA MEMBERSHIP ADVISOR, ELISEO S 780.79 FATIGUE 06/05/2014 YULIA MEMBERSHIP ADVISOR, ELISEO S 780.79 FATIGUE 08/17/2014 YULIA MEMBERSHIP ADVISOR, ELISEO S 724.5 BACK PAIN, GENERAL 08/17/2014 YULIA MEMBERSHIP ADVISOR, ELISEO S 724.5 BACK PAIN, GENERAL 08/17/2014 YULIA MEMBERSHIP ADVISOR, ELISEO S 724.5 BACK PAIN, GENERAL 08/26/2014 YULIA MEMBERSHIP ADVISOR, ELISEO S 714.0 RHEUMATOID ARTHRITIS 08/26/2014 YULIA MEMBERSHIP ADVISOR, ELISEO S 714.0 RHEUMATOID ARTHRITIS 08/26/2014 YULIA MEMBERSHIP ADVISOR, ELISEO S 714.0 RHEUMATOID ARTHRITIS 08/29/2014 DANYA OLIVER MOLD CAR PUSHER Ot 785.1 PALPITATIONS 09/13/2014 ELISEO BENDER MOLD CAR PUSHER Ot 724.5 09/13/2014 ELISEO BENDER MOLD CAR PUSHER Ot V45.4 09/29/2014 Ot 782.3 09/29/2014 Ot 786.02 09/29/2014 Ot 218.9 09/29/2014 Ot 599.72 09/29/2014 Ot 625.9 09/29/2014 Ot 241.1 09/29/2014 Ot 244.9 09/29/2014 Ot 787.20 09/29/2014 Ot 218.9 09/29/2014 Ot 620.2 09/29/2014 Ot 781.2 09/29/2014 Ot 784.0 09/29/2014 Ot V15.88 09/29/2014 Ot 784.0 09/29/2014 Ot V15.88 09/29/2014 Ot V81.5 09/29/2014 Ot 241.0 09/29/2014 Ot 433.10 09/29/2014 Ot 780.93 09/29/2014 Ot 241.1 09/29/2014 ZUNIGA, DUSTIN Zaragoza Ot V72.84 09/29/2014 ZUNIGA, DUSTIN Zaragoza Ot 562.10 09/29/2014 ZUNIGA, DUSTIN Zaragoza Ot V16.0 09/29/2014 ZUNIGA, DUSTIN Zaragoza Ot V76.51 09/29/2014 CHARLES MARTINES MEMBERSHIP ADVISOR Ot 621.30 09/29/2014 CHARLES MARTINES MEMBERSHIP ADVISOR Ot 788.30 09/29/2014 CHARLES MARTINES MEMBERSHIP ADVISOR Ot 611.72 09/29/2014 MARIETTA HERCULES MD Ot 721.3 09/29/2014 MARIETTA HERCULES MD Ot 722.52 09/29/2014 MARIETTA HERCULES MD Ot 729.1 09/29/2014 MARIETTA HERCULES MD Ot V58.69 09/29/2014 MARIETTA HERCULES MD Ot 721.3 09/29/2014 MARIETTA HERCULES MD Ot 722.52 09/29/2014 MARIETTA HERCULES MD Ot 726.5 09/29/2014 MARIETTA HERCULES MD Ot 729.1 09/29/2014 MARIETTA HERCULES MD Ot V58.69 09/29/2014 KENDALL GOODWIN MD Ot 715.31 09/29/2014 KENDALL GOODWIN MD Ot 726.10 09/29/2014 KENDALL GOODWIN MD Ot E000.8 09/29/2014 KENDALL GOODWIN MD Ot E849.0 09/29/2014 KENDALL GOODWIN MD Ot E885.9 09/29/2014 JOCELYN ZUNIGA FAC, ALI FACP CCDS Ot 401.9 09/29/2014 JOCELYN ZUNIGA FACC, ALI FACP CCDS Ot 785.2 09/29/2014 JOCELYN ZUNIGA FACC, ALI FACP CCDS Ot 786.05 09/29/2014 JOCELYN ZUNIGA [facility], ALI FACP CCDS Ot 789.03 09/29/2014 JOCELYN ZUNIGA [facility], ALI FACP CCDS Ot 789.30 09/29/2014 JOCELYN ZUNIGA [facility], ALI FACP CCDS Ot V45.89 09/29/2014 BUDDY ZUNIGA, KENDALL L Ot 726.2 09/29/2014 BUDDY ZUNIGA, KENDALL L Ot V28.4 09/29/2014 BUDDY ZUNIGA, KENDALL L Ot V72.63 09/29/2014 BUDDY ZUNIGA, KENDALL L Ot V74.8 09/29/2014 HUGO ZUNIGA, CARLOS ALBERTO L Ot 719.7 09/29/2014 HUGO ZUNIGA, CARLOS ALBERTO [employer] Ot 722.52 09/29/2014 HUGO ZUNIGA, CARLOS ALBERTO L Ot 729.5 09/29/2014 HUGO ZUNIGA, CARLOS ALBERTO L Ot 782.1 09/29/2014 ELISEO BENDER MOLD CAR PUSHER Ot V76.12 09/29/2014 JENNA SPECIAL EDUCATION COORDINATOR, CLEMENCIA Daugherty Ot 721.3 09/29/2014 ELISEO BENDER MOLD CAR PUSHER Ot 724.5 09/29/2014 ELISEO BENDER MOLD CAR PUSHER Ot V45.4 09/29/2014 DANAY OLIVER MOLD CAR PUSHER Ot 785.1 09/29/2014 MARIETTA HERCULES MD Ot 724.1 09/29/2014 MARIETTA HERCULES MD Ot V57.1 09/29/2014 MARIETTA HERCULES MD Ot 724.1 09/29/2014 MARIETTA HERCULES MD Ot V57.1 09/29/2014 MARIETTA HERCULES MD Ot 724.1 09/29/2014 MARIETTA HERCULES MD Ot V57.1 10/05/2014 ELISEO BENDERP Ot 724.5 10/05/2014 ELISEO BENDERP Ot V45.4 10/16/2014 MARIETTA HERCULES MD Ot 724.1 10/16/2014 MARIETTA HERCULES MD Ot V57.1 10/16/2014 MARIETTA HERCULES MD Ot 724.1 10/16/2014 MARIETTA HERCULES MD Ot V57.1 10/16/2014 MARIETTA HERCULES MD Ot 724.1 10/16/2014 MARIETTA HERCULES MD Ot V57.1 10/19/2014 MARIETTA HERCULES MD Ot 724.1 PAIN IN THORACIC SPINE 10/19/2014 MARIETTA HERCULES MD Ot V57.1 PHYSICAL THERAPY NEC 11/20/2014 YULIAPATRICK NGUYEN ELISEO David V58.69 HIGH RISK MEDICATION 12/08/2014 Ot 721.0 12/08/2014 Ot 726.0 12/26/2014 ABDI DO, FLYNN F Ot 726.13 PARTIAL TEAR OF ROTATOR CUFF 12/26/2014 ABDI DO, FLYNN F Ot 727.62 BICEPS TENDON RUPTURE 2015 ABDI DO, FLYNN F Ot V57.1 2015 ABDI DO, FLYNN F Ot V58.49 02/06/2015 ABDI DO, FLYNN F Ot 496 02/06/2015 ABDI DO, FLYNN F Ot 727.61 02/06/2015 ABDI DO, FLYNN F Ot 786.05 02/06/2015 ABDI DO, FLYNN F Ot V72.83 02/06/2015 ABDI DO, FLYNN F Ot V74.8 02/07/2015 ABDI DO, FLYNN F Ot V57.1 02/07/2015 ABDI DO, FLYNN F Ot V58.49 02/07/2015 ABDI DO, FLYNN F Ot V57.1 02/07/2015 ABDI DO, FLYNN F Ot V58.49 02/07/2015 ABDI DO, FLYNN F Ot V57.1 02/07/2015 ABDI DO, FLYNN F Ot V58.49 03/07/2015 ABDI DO, FLYNN F Ot V57.1 03/07/2015 ABDI DO, FLYNN F Ot V58.49 03/07/2015 ABDI DO, FLYNN F Ot V57.1 03/07/2015 ABDI DO, FLYNN F Ot V58.49 03/30/2015 ABDI DO, FLYNN F Ot V57.1 03/30/2015 ABDI DO, FLYNN F Ot V58.49 04/09/2015 ABDI DO, FLYNN F Ot V57.1 04/09/2015 ABDI DO, FLYNN F Ot V58.49 04/09/2015 ABDI DO, FLYNN F Ot V57.1 04/09/2015 ABDI DO, FLYNN F Ot V58.49 04/09/2015 ABDI DO, FLYNN Mcginnis Ot V57.1 04/09/2015 ABDI DO, FLYNN Mcginnis Ot V58.49 04/10/2015 ABDI DO, FLYNN Mcginnis Ot V57.1 PHYSICAL THERAPY NEC 04/10/2015 ABDI DO, FLYNN Mcginnis Ot V58.49 OTHER SPECIFIED AFTERCARE FOLLOWING SURG 05/22/2015 ABDI DO, FLYNN Mcginnis Ot 496 05/22/2015 ABDI DO, FLYNN Mcginnis Ot 727.61 05/22/2015 ABDI DO, FLYNN Mcginnis Ot 786.05 05/22/2015 ABDI DOFLYNN Ot V72.83 05/22/2015 ABDI DOFLYNN Ot V74.8 09/18/2015 Ot 218.9 09/18/2015 Ot 599.72 09/18/2015 Ot 625.9 09/18/2015 Ot 241.1 09/18/2015 Ot 244.9 09/18/2015 Ot 787.20 09/18/2015 Ot 218.9 09/18/2015 Ot 620.2 09/18/2015 Ot 781.2 09/18/2015 Ot 784.0 09/18/2015 Ot V15.88 09/18/2015 Ot 784.0 09/18/2015 Ot V15.88 09/18/2015 Ot V81.5 09/18/2015 Ot 241.0 09/18/2015 Ot 433.10 09/18/2015 Ot 780.93 09/18/2015 Ot 241.1 09/18/2015 ZUNIGA, DUSTIN Zaragoza Ot V72.84 09/18/2015 ZUNIGA, DUSTIN Zaragoza Ot 562.10 09/18/2015 ZUNIGA, DUSTIN Zaragoza Ot V16.0 09/18/2015 ZUNIGA, DUSTIN Zaragoza Ot V76.51 09/18/2015 CHARLES MARTINES MEMBERSHIP ADVISOR Ot 621.30 09/18/2015 CHARLES MARTINES MEMBERSHIP ADVISOR Ot 788.30 09/18/2015 CHARLES MARTINES MEMBERSHIP ADVISOR Ot 611.72 09/18/2015 DELISA ZUNIGA, MARIETTA Daugherty Ot 721.3 09/18/2015 DELISA ZUNIGA, MARIETTA Daugherty Ot 722.52 09/18/2015 MARIETTA HERCULES MD Ot 729.1 09/18/2015 MARIETTA HERCULES MD Ot V58.69 09/18/2015 MARIETTA HERCULES MD Ot 721.3 09/18/2015 MARIETTA HERCULES MD Ot 722.52 09/18/2015 MARIETTA HERCULES MD Ot 726.5 09/18/2015 MARIETTA HERCULES MD Ot 729.1 09/18/2015 MARIETTA HERCULES MD Ot V58.69 09/18/2015 KENDALL GOODWIN MD Ot 715.31 09/18/2015 KENDALL GOODWIN MD L Ot 726.10 09/18/2015 KENDALL GOODWIN MD L Ot E000.8 09/18/2015 KENDALL GOODWIN MD Ot E849.0 09/18/2015 KENDALL GOODWIN MD Ot E885.9 09/18/2015 JOCELYN ZUNIGA FACC, ALI FACP CCDS Ot 401.9 09/18/2015 JOCELYN ZUNIGA FACC, ALI FACP CCDS Ot 785.2 09/18/2015 JOCELYN ZUNIGA FACC, ALI FACP CCDS Ot 786.05 09/18/2015 JOCELYN ZUNIGA FACC, ALI FACP CCDS Ot 789.03 09/18/2015 JOCELYN ZUNIGA FACC, ALI FACP CCDS Ot 789.30 09/18/2015 JOCELYN ZUNIGA FACC, ALI FACP CCDS Ot V45.89 09/18/2015 KENDALL GOODWIN MD Ot 726.2 09/18/2015 KENDALL GOODWIN MD Ot V28.4 09/18/2015 KENDALL GOODWIN MD Ot V72.63 09/18/2015 KENDALL GOODWIN MD Ot V74.8 09/18/2015 CARLOS ALBERTO ARIAS MD Ot 719.7 09/18/2015 CARLOS ALBERTO ARIAS MD Ot 722.52 09/18/2015 CARLOS ALBERTO ARIAS MD Ot 729.5 09/18/2015 CARLOS ALBERTO ARIAS MD Ot 782.1 09/18/2015 ELISEO BENDER Ot V76.12 09/18/2015 JENNA SPECIAL EDUCATION COORDINATOR, CLEMENCIA Daugherty Ot 721.3 09/18/2015 ELISEO BENDERP Ot 724.5 09/18/2015 ELISEO BENDER MOLD CAR PUSHER Ot V45.4 09/18/2015 BAIMA, DANAY L MOLD CAR PUSHER Ot 785.1 09/18/2015 Ot 721.0 09/18/2015 Ot 726.0 09/18/2015 ABDI DO, FLYNN F Ot 496 09/18/2015 ABDI DO, FLYNN F Ot 727.61 09/18/2015 ABDI DO, FLYNN F Ot 786.05 09/18/2015 ABDI DO, FLYNN F Ot V72.83 09/18/2015 ABDI DO, FLYNN F Ot V74.8 10/09/2015 YULIAELISEO COLLIER MOLD CAR PUSHER Ot Z12.31 10/23/2015 YULIAELISEO COLLIER MOLD CAR PUSHER Ot Z12.31 01/16/2016 BAIMA, DANAY L MOLD CAR PUSHER Ot I10 ESSENTIAL (PRIMARY) HYPERTENSION 01/16/2016 BAIMA, DANAY L MOLD CAR PUSHER Ot R00.2 PALPITATIONS 01/16/2016 BAIMA, DANAY L MOLD CAR PUSHER Ot R06.00 DYSPNEA, UNSPECIFIED 01/16/2016 BAIMA, DANAY L MOLD CAR PUSHER Ot R07.9 CHEST PAIN, UNSPECIFIED 01/16/2016 BAIMA, DANAY L MOLD CAR PUSHER Ot R60.9 EDEMA, UNSPECIFIED 01/16/2016 BAIMA, DANAY L MOLD CAR PUSHER Ot I10 ESSENTIAL (PRIMARY) HYPERTENSION 01/16/2016 BAIMA, DANAY L MOLD CAR PUSHER Ot R00.2 PALPITATIONS 01/16/2016 BAIMA, DANAY L MOLD CAR PUSHER Ot R06.00 DYSPNEA, UNSPECIFIED 01/16/2016 BAIMA, DANAY L MOLD CAR PUSHER Ot R07.9 CHEST PAIN, UNSPECIFIED 01/16/2016 BAIMA, DANAY L MOLD CAR PUSHER Ot R60.9 EDEMA, UNSPECIFIED 02/12/2016 BAIMA, DANAY L MOLD CAR PUSHER Ot I10 ESSENTIAL (PRIMARY) HYPERTENSION 02/12/2016 BAIMA, DANAY L MOLD CAR PUSHER Ot R00.2 PALPITATIONS 02/12/2016 BAIMA, DANAY L MOLD CAR PUSHER Ot R06.00 DYSPNEA, UNSPECIFIED 02/12/2016 BAIMA, DANAY L MOLD CAR PUSHER Ot R07.9 CHEST PAIN, UNSPECIFIED 02/12/2016 BAIMA, DANAY L MOLD CAR PUSHER Ot R60.9 EDEMA, UNSPECIFIED 02/18/2016 BAIMA, DANAY L MOLD CAR PUSHER Ot I10 ESSENTIAL (PRIMARY) HYPERTENSION 02/18/2016 BAIMA, DANAY L MOLD CAR PUSHER Ot R00.2 PALPITATIONS 02/18/2016 BAIMA, DANAY L MOLD CAR PUSHER Ot R06.00 DYSPNEA, UNSPECIFIED 02/18/2016 BAIMA, DANAY L MOLD CAR PUSHER Ot R07.9 CHEST PAIN, UNSPECIFIED 02/18/2016 BAIMA, DANAY L MOLD CAR PUSHER Ot R60.9 EDEMA, UNSPECIFIED 02/22/2016 BAIMA, DANAY L MOLD CAR PUSHER Ot I10 ESSENTIAL (PRIMARY) HYPERTENSION 02/22/2016 BAIMA, DANAY L MOLD CAR PUSHER Ot R00.2 PALPITATIONS 02/22/2016 BAIMA, DANAY L MOLD CAR PUSHER Ot R06.00 DYSPNEA, UNSPECIFIED 02/22/2016 BAIMA, DANAY L MOLD CAR PUSHER Ot R07.9 CHEST PAIN, UNSPECIFIED 02/22/2016 BAIMA, DANAY L MOLD CAR PUSHER Ot R60.9 EDEMA, UNSPECIFIED 02/22/2016 BAIMA, DANAY L MOLD CAR PUSHER Ot I10 ESSENTIAL (PRIMARY) HYPERTENSION 02/22/2016 BAIMA, DANAY L MOLD CAR PUSHER Ot R00.2 PALPITATIONS 02/22/2016 BAIMA, DANAY L MOLD CAR PUSHER Ot R06.00 DYSPNEA, UNSPECIFIED 02/22/2016 BAIMA, DANAY L MOLD CAR PUSHER Ot R07.9 CHEST PAIN, UNSPECIFIED 02/22/2016 BAIMA, DANAY L MOLD CAR PUSHER Ot R60.9 EDEMA, UNSPECIFIED 03/12/2016 BAIMA, DANAY L MOLD CAR PUSHER Ot I10 ESSENTIAL (PRIMARY) HYPERTENSION 03/12/2016 BAIMA, DANAY L MOLD CAR PUSHER Ot R00.2 PALPITATIONS 03/12/2016 BAIMA, DANAY L MOLD CAR PUSHER Ot R06.00 DYSPNEA, UNSPECIFIED 03/12/2016 BAIMA, DANAY L MOLD CAR PUSHER Ot R07.9 CHEST PAIN, UNSPECIFIED 03/12/2016 BAIMA, DANAY L MOLD CAR PUSHER Ot R60.9 EDEMA, UNSPECIFIED 03/18/2016 BAIMA, DANAY L MOLD CAR PUSHER Ot I10 ESSENTIAL (PRIMARY) HYPERTENSION 03/18/2016 BAIMA, DANAY L MOLD CAR PUSHER Ot R00.2 PALPITATIONS 03/18/2016 BAIMA, DANAY L MOLD CAR PUSHER Ot R06.00 DYSPNEA, UNSPECIFIED 03/18/2016 BAIMA, DANAY L MOLD CAR PUSHER Ot R07.9 CHEST PAIN, UNSPECIFIED 03/18/2016 DANAY OLIVER MOLD CAR PUSHER Ot R60.9 EDEMA, UNSPECIFIED 04/21/2016 ELISEO BENDER MOLD CAR PUSHER Ot E04.1 NONTOXIC SINGLE THYROID NODULE 04/22/2016 ELISEO BENDER MOLD CAR PUSHER Ot E04.1 NONTOXIC SINGLE THYROID NODULE 05/01/2016 ZUNIGA, DUSTIN Zaragoza Ot K59.00 CONSTIPATION, UNSPECIFIED 05/01/2016 ZUNIGA, DUSTIN Zaragoza Ot R19.4 CHANGE IN BOWEL HABIT 05/01/2016 DUSTIN DAVE MD Ot Z01.818 ENCOUNTER FOR OTHER PREPROCEDURAL EXAMIN 05/01/2016 DUSTIN DAVE MD Ot Z80.0 FAMILY HISTORY OF MALIGNANT NEOPLASM OF 05/02/2016 DUSTIN DAVE MD Ot K59.00 CONSTIPATION, UNSPECIFIED 05/02/2016 DUSTIN DAVE MD Ot R19.4 CHANGE IN BOWEL HABIT 05/02/2016 DUSTIN DAVE MD Ot Z01.818 ENCOUNTER FOR OTHER PREPROCEDURAL EXAMIN 05/02/2016 ZUNIGA, DUSTIN Zaragoza Ot Z80.0 FAMILY HISTORY OF MALIGNANT NEOPLASM OF 05/06/2016 Ot 218.9 UTERINE LEIOMYOMA NOS 05/06/2016 Ot 620.2 OVARIAN CYST NEC/NOS 05/06/2016 Ot 781.2 ABNORMALITY OF GAIT 05/06/2016 Ot 784.0 HEADACHE 05/06/2016 Ot V15.88 HISTORY OF FALL 05/06/2016 Ot 784.0 HEADACHE 05/06/2016 Ot V15.88 HISTORY OF FALL 05/06/2016 Ot V81.5 SCREEN FOR NEPHROPATHY 05/06/2016 Ot 241.0 NONTOX UNINODULAR GOITER 05/06/2016 Ot 433.10 CAROTID ARTERY OCCLUSION W O CEREBRAL IN 05/06/2016 Ot 780.93 MEMORY LOSS 05/06/2016 Ot 241.1 NONTOX MULTINODUL GOITER 05/06/2016 DUSTIN DAVE MD Ot V72.84 EXAM PRE-OPERATIVE NOS 05/06/2016 DUSTIN DAVE MD Ot 562.10 DIVERTICULOSIS COLON (W/O MENT OF HEMORR 05/06/2016 DUSTIN DAVE MD Ot V16.0 FAMILY HX-GI MALIGNANCY 05/06/2016 DUSTIN DAVE MD Ot V76.51 SCREEN MAL NEOP-COLON 05/06/2016 CHARLES MARTINES MEMBERSHIP ADVISOR Ot 621.30 ENDOMETRIAL HYPERPLASIA, UNSPECIFIED 05/06/2016 CHARLES MARTINES MEMBERSHIP ADVISOR Ot 788.30 UNSPECIFIED URINARY INCONTINENCE 05/06/2016 CHARLES MARTINES MEMBERSHIP ADVISOR Ot 611.72 LUMP OR MASS IN BREAST 05/06/2016 MARIETTA HERCULES MD Ot 721.3 LUMBOSACRAL SPONDYLOSIS 05/06/2016 MAREITTA HERCULES MD Ot 722.52 LUMB/LUMBOSAC DISC DEGEN 05/06/2016 MARIETTA HERCULES MD Ot 729.1 MYALGIA AND MYOSITIS NOS 05/06/2016 MARIETTA HERCULES MD, Ot V58.69 OTH MED,LT,CURRENT USE 05/06/2016 MARIETTA HERCULES MD Ot 721.3 LUMBOSACRAL SPONDYLOSIS 05/06/2016 MARIETTA HERCULES MD, Ot 722.52 LUMB/LUMBOSAC DISC DEGEN 05/06/2016 MARIETTA HERCULES MD, Ot 726.5 ENTHESOPATHY OF HIP 05/06/2016 MARIETTA HERCULES MD, Ot 729.1 MYALGIA AND MYOSITIS NOS 05/06/2016 MARIETTA HERCULES MD, Ot V58.69 OTH MED,LT,CURRENT USE 05/06/2016 KENDALL GOODWIN MD Ot 715.31 LOC OSTEOARTH NOS-SHLDER 05/06/2016 KENDALL GOODWIN MD Ot 726.10 BURSAE TENDONS DIS SHLDER NOS 05/06/2016 KENDALL GOODWIN MD Ot E000.8 OTHER EXTERNAL CAUSE STATUS 05/06/2016 KENDALL GOODWIN MD Ot E849.0 ACCIDENT IN HOME 05/06/2016 KENDALL GOODWIN MD Ot E885.9 FALL FROM SLIPPING, TRIPPING, OR STUMBLI 05/06/2016 JOCELYN ZUNIGA FACC, ALI FACP CCDS Ot 401.9 HYPERTENSION NOS 05/06/2016 JOCELYN ZUNIGA FACC, ALI FACP CCDS Ot 785.2 CARDIAC MURMURS NEC 05/06/2016 JOCELYN ZUNIGA FACC, ALI FACP CCDS Ot 786.05 SHORTNESS OF BREATH 05/06/2016 JOCELYN ZUNIGA FACC, ALI FACP CCDS Ot 789.03 ABDOMINAL PAIN, RIGHT LOWER QUADRANT 05/06/2016 JOCELYN ZUNIGA FAC, ALI FACP CCDS Ot 789.30 ABDOMINAL/PELVIC SWELLING,MASS/LUMP UNSP 05/06/2016 JOCELYN ZUNIGA FAC, ALI [facility] CCDS Ot V45.89 POSTSURGICAL STATES NEC 05/06/2016 KENDALL GOODWIN MD Ot 726.2 SHOULDER REGION DIS NEC 05/06/2016 KENDALL GOODWIN MD Ot V28.4 SCREEN- RETARDATION 05/06/2016 KENDALL GOODWIN MD Ot V72.63 PRE-PROCEDURAL LABORATORY EXAMINATION 05/06/2016 KENDALL GOODWIN MD Ot V74.8 SCREEN-BACTERIAL DIS NEC 05/06/2016 HUGO ZUNIGA, CARLOS ALBERTO Boogie Ot 719.7 DIFFICULTY IN WALKING 05/06/2016 CARLOS ALBERTO ARIAS MD Ot 722.52 LUMB/LUMBOSAC DISC DEGEN 05/06/2016 CARLOS ALBERTO ARIAS MD Ot 729.5 PAIN IN LIMB 05/06/2016 CARLOS ALBERTO ARIAS MD Ot 782.1 NONSPECIF SKIN ERUPT NEC 05/06/2016 ELISEO BENDER Ot V76.12 OTH SCREEN MAMMO-MALIGN NEOPLASM OF CHRIS 05/06/2016 JENNA SPECIAL EDUCATION COORDINATOR, CLEMENCIA Daugherty Ot 721.3 LUMBOSACRAL SPONDYLOSIS 05/06/2016 ELISEO BENDER Ot 724.5 BACKACHE NOS 05/06/2016 ELISEO BENDER Ot V45.4 ARTHRODESIS STATUS 05/06/2016 DANAY OLIVER MOLD CAR PUSHER Ot 785.1 PALPITATIONS 05/06/2016 Ot 721.0 CERVICAL SPONDYLOSIS 05/06/2016 Ot 726.0 ADHESIVE CAPSULIT SHLDER 05/06/2016 FLYNN PATTON DO Ot 496 CHR AIRWAY OBSTRUCT NEC 05/06/2016 FLYNN PATTON DO Ot 727.61 ROTATOR CUFF RUPTURE 05/06/2016 FLYNN PATTON DO Ot 786.05 SHORTNESS OF BREATH 05/06/2016 FLYNN PATTON DO Ot V72.83 EXAM PRE-OPERATIVE NEC 05/06/2016 FLYNN PATTON DO Ot V74.8 SCREEN-BACTERIAL DIS NEC 05/06/2016 ELISEO BENDER Ot Z12.31 ENCNTR SCREEN MAMMOGRAM FOR MALIGNANT NE 05/06/2016 MELODY, DANAY L MOLD CAR PUSHER Ot I10 ESSENTIAL (PRIMARY) HYPERTENSION 05/06/2016 BAIMA, DANAY L MOLD CAR PUSHER Ot R00.2 PALPITATIONS 05/06/2016 BAIMA, DANAY L MOLD CAR PUSHER Ot R06.00 DYSPNEA, UNSPECIFIED 05/06/2016 BAIMA, DANAY L MOLD CAR PUSHER Ot R07.9 CHEST PAIN, UNSPECIFIED 05/06/2016 BAIMA, DANAY L MOLD CAR PUSHER Ot R60.9 EDEMA, UNSPECIFIED 05/06/2016 BAIMA, DANAY L MOLD CAR PUSHER Ot I10 ESSENTIAL (PRIMARY) HYPERTENSION 05/06/2016 BAIMA, DANAY L MOLD CAR PUSHER Ot R00.2 PALPITATIONS 05/06/2016 BAIMA, DANAY L MOLD CAR PUSHER Ot R06.00 DYSPNEA, UNSPECIFIED 05/06/2016 BAIMA, DANAY L MOLD CAR PUSHER Ot R07.9 CHEST PAIN, UNSPECIFIED 05/06/2016 BAIMA, DANAY L MOLD CAR PUSHER Ot R60.9 EDEMA, UNSPECIFIED 05/06/2016 ELISEO BENDER MOLD CAR PUSHER Ot E04.1 NONTOXIC SINGLE THYROID NODULE 05/08/2016 ZUNIGA, DUSTIN Zaragoza Ot R19.4 CHANGE IN BOWEL HABIT 05/08/2016 ZUNIGA, DUSTIN Zaragoza Ot Z80.0 FAMILY HISTORY OF MALIGNANT NEOPLASM OF 05/08/2016 ZUNIGA, DUSTIN Zaragoza Ot E04.2 NONTOXIC MULTINODULAR GOITER 05/09/2016 ELISEO BENDER MOLD CAR PUSHER Ot E04.1 NONTOXIC SINGLE THYROID NODULE 05/09/2016 ZUNIGA, DUSTIN M Ot R19.4 CHANGE IN BOWEL HABIT 05/09/2016 ZUNIGA, DUSTIN Zaragoza Ot Z80.0 FAMILY HISTORY OF MALIGNANT NEOPLASM OF 05/12/2016 ZUNIGA, DUSTIN Zaragoza Ot E04.2 NONTOXIC MULTINODULAR GOITER 06/05/2016 ZUNIGA, DUSTIN Zaragoza Ot E04.2 NONTOXIC MULTINODULAR GOITER 07/09/2016 MELODY, DANAY L MOLD CAR PUSHER Ot 785.1 PALPITATIONS 07/09/2016 DUSTIN DAVE MD Ot E04.2 NONTOXIC MULTINODULAR GOITER 07/09/2016 ZUNIGA, DUSTIN Zaragoza Ot Z01.812 ENCOUNTER FOR PREPROCEDURAL LABORATORY E 07/09/2016 ZUNIGA, DUSTIN M Ot Z11.2 ENCOUNTER FOR SCREENING FOR OTHER BACTER 07/10/2016 ZUNIGA, DUSTIN M Ot E04.2 NONTOXIC MULTINODULAR GOITER 07/10/2016 ZUNIGA, DUSTIN M Ot Z01.812 ENCOUNTER FOR PREPROCEDURAL LABORATORY E 07/10/2016 ZUNIGA, DUSTIN M Ot Z11.2 ENCOUNTER FOR SCREENING FOR OTHER BACTER 07/15/2016 ZUNIGA, DUSTIN M Ot E04.2 NONTOXIC MULTINODULAR GOITER 07/15/2016 ZUNIGA, DUSTIN M Ot Z01.812 ENCOUNTER FOR PREPROCEDURAL LABORATORY E 07/15/2016 ZUNIGA, DUSTIN M Ot Z11.2 ENCOUNTER FOR SCREENING FOR OTHER BACTER 07/22/2016 ZUNIGA, DUSTIN M Ot C73 MALIGNANT NEOPLASM OF THYROID GLAND 07/22/2016 ZUNIGA, DUSTIN M Ot E04.1 NONTOXIC SINGLE THYROID NODULE 07/27/2016 ZUNIGA, DUSTIN M Ot C73 MALIGNANT NEOPLASM OF THYROID GLAND 07/27/2016 ZUNIGA, DUSTIN M Ot E04.1 NONTOXIC SINGLE THYROID NODULE 08/16/2016 ZUNIGA, DUSTIN M Ot C73 MALIGNANT NEOPLASM OF THYROID GLAND 08/16/2016 ZUNIGA, DUSTIN M Ot E04.1 NONTOXIC SINGLE THYROID NODULE 08/22/2016 ZUNIGA, DUSTIN M Ot R13.10 DYSPHAGIA, UNSPECIFIED 08/22/2016 ZUNIGA, DUSTIN M Ot Z01.818 ENCOUNTER FOR OTHER PREPROCEDURAL EXAMIN 09/18/2016 DUSTIN DAVE MD M Ot R13.10 DYSPHAGIA, UNSPECIFIED 09/18/2016 DUSTIN DAVE MD M Ot Z01.818 ENCOUNTER FOR OTHER PREPROCEDURAL EXAMIN 09/19/2016 DUSTIN DAVE MD M Ot R13.10 DYSPHAGIA, UNSPECIFIED 09/19/2016 DUSTIN DAVE MD M Ot Z01.818 ENCOUNTER FOR OTHER PREPROCEDURAL EXAMIN 09/22/2016 DUSTIN DAVE MD M Ot K22.2 ESOPHAGEAL OBSTRUCTION 09/22/2016 DUSTIN DAVE MD Ot K44.9 DIAPHRAGMATIC HERNIA WITHOUT OBSTRUCTION 09/23/2016 DUSTIN DAVE MD Ot K22.2 ESOPHAGEAL OBSTRUCTION 09/23/2016 ZUNIGA, DUSTIN Zaragoza Ot K44.9 DIAPHRAGMATIC HERNIA WITHOUT OBSTRUCTION 09/24/2016 ZUNIGA, DUSTIN Zaragoza Ot R13.10 DYSPHAGIA, UNSPECIFIED 09/24/2016 ZUNIGA, DUSTIN Zaragoza Ot Z01.818 ENCOUNTER FOR OTHER PREPROCEDURAL EXAMIN 09/25/2016 ZUNIGA, DUSTIN Zaragoza Ot K22.2 ESOPHAGEAL OBSTRUCTION 09/25/2016 ZUNIGA, DUSTIN Zaragoza Ot K44.9 DIAPHRAGMATIC HERNIA WITHOUT OBSTRUCTION 10/03/2016 Ot 781.2 ABNORMALITY OF GAIT 10/03/2016 Ot 784.0 HEADACHE 10/03/2016 Ot V15.88 HISTORY OF FALL 10/03/2016 Ot 784.0 HEADACHE 10/03/2016 Ot V15.88 HISTORY OF FALL 10/03/2016 Ot V81.5 SCREEN FOR NEPHROPATHY 10/03/2016 Ot 241.0 NONTOX UNINODULAR GOITER 10/03/2016 Ot 433.10 CAROTID ARTERY OCCLUSION W O CEREBRAL IN 10/03/2016 Ot 780.93 MEMORY LOSS 10/03/2016 Ot 241.1 NONTOX MULTINODUL GOITER 10/03/2016 ZUNIGA, DUSTIN Zaragoza Ot V72.84 EXAM PRE-OPERATIVE NOS 10/03/2016 ZUNIGA, DUSTIN Zaragoza Ot 562.10 DIVERTICULOSIS COLON (W/O MENT OF HEMORR 10/03/2016 DUSTIN DAVE MD Ot V16.0 FAMILY HX-GI MALIGNANCY 10/03/2016 DUSTIN DAVE MD Ot V76.51 SCREEN MAL NEOP-COLON 10/03/2016 CHARLES MARTINES MEMBERSHIP ADVISOR Ot 621.30 ENDOMETRIAL HYPERPLASIA, UNSPECIFIED 10/03/2016 CHARLES MARTINES MEMBERSHIP ADVISOR Ot 788.30 UNSPECIFIED URINARY INCONTINENCE 10/03/2016 CHARLES MARTINES MEMBERSHIP ADVISOR Ot 611.72 LUMP OR MASS IN BREAST 10/03/2016 MARIETTA HERCULES MD Ot 721.3 LUMBOSACRAL SPONDYLOSIS 10/03/2016 MARIETTA HERCULES MD Ot 722.52 LUMB/LUMBOSAC DISC DEGEN 10/03/2016 MARIETTA HERCULES MD Ot 729.1 MYALGIA AND MYOSITIS NOS 10/03/2016 MARIETTA HERCULES MD Ot V58.69 OTH MED,LT,CURRENT USE 10/03/2016 MARIETTA HERCULES MD Ot 721.3 LUMBOSACRAL SPONDYLOSIS 10/03/2016 MARIETTA HERCULES MD Ot 722.52 LUMB/LUMBOSAC DISC DEGEN 10/03/2016 MARIETTA HERCULES MD Ot 726.5 ENTHESOPATHY OF HIP 10/03/2016 MARIETTA HERCULES MD Ot 729.1 MYALGIA AND MYOSITIS NOS 10/03/2016 MARIETTA HERCULES MD Ot V58.69 OTH MED,LT,CURRENT USE 10/03/2016 KENDALL GOODWIN MD Ot 715.31 LOC OSTEOARTH NOS-SHLDER 10/03/2016 KENDALL GOODWIN MD Ot 726.10 BURSAE TENDONS DIS SHLDER NOS 10/03/2016 KENDALL GOODWIN MD Ot E000.8 OTHER EXTERNAL CAUSE STATUS 10/03/2016 KENDALL GOODWIN MD Ot E849.0 ACCIDENT IN HOME 10/03/2016 KENDALL GOODWIN MD Ot E885.9 FALL FROM SLIPPING, TRIPPING, OR STUMBLI 10/03/2016 JOCELYN ZUNIGA FACC, ALI FACP CCDS Ot 401.9 HYPERTENSION NOS 10/03/2016 JOCELYN ZUNIGA FACC, ALI FACP CCDS Ot 785.2 CARDIAC MURMURS NEC 10/03/2016 JOCELYN ZUNIGA FACC, ALI FACP CCDS Ot 786.05 SHORTNESS OF BREATH 10/03/2016 JOCELYN ZUNIGA FACC, ALI FACP CCDS Ot 789.03 ABDOMINAL PAIN, RIGHT LOWER QUADRANT 10/03/2016 JOCELYN ZUNIGA FACC, ALI FACP CCDS Ot 789.30 ABDOMINAL/PELVIC SWELLING,MASS/LUMP UNSP 10/03/2016 JOCELYN ZUNIGA FACC, ALI FACP CCDS Ot V45.89 POSTSURGICAL STATES NEC 10/03/2016 KENDALL GOODWIN MD Ot 726.2 SHOULDER REGION DIS NEC 10/03/2016 KENDALL GOODWIN MD Ot V28.4 SCREEN- RETARDATION 10/03/2016 KENDALL GOODWIN MD Ot V72.63 PRE-PROCEDURAL LABORATORY EXAMINATION 10/03/2016 KENDALL GOODWIN MD Ot V74.8 SCREEN-BACTERIAL DIS NEC 10/03/2016 CARLOS ALBERTO ARIAS MD Ot 719.7 DIFFICULTY IN WALKING 10/03/2016 CARLOS ALBERTO ARIAS MD L Ot 722.52 LUMB/LUMBOSAC DISC DEGEN 10/03/2016 HUGO ZUNIGA, CARLOS ALBERTO Boogie Ot 729.5 PAIN IN LIMB 10/03/2016 HUGO ZUNIGA, CARLOS ALBERTO Boogie Ot 782.1 NONSPECIF SKIN ERUPT NEC 10/03/2016 ELISEO BENDER Ot V76.12 OTH SCREEN MAMMO-MALIGN NEOPLASM OF CHRIS 10/03/2016 JENNA SPECIAL EDUCATION COORDINATOR, CLEMENCIA Daugherty Ot 721.3 LUMBOSACRAL SPONDYLOSIS 10/03/2016 ELISEO BENDER Ot 724.5 BACKACHE NOS 10/03/2016 ELISEO BENDER Ot V45.4 ARTHRODESIS STATUS 10/03/2016 DANAY OLIVERP Ot 785.1 PALPITATIONS 10/03/2016 Ot 721.0 CERVICAL SPONDYLOSIS 10/03/2016 Ot 726.0 ADHESIVE CAPSULIT SHLDER 10/03/2016 FLYNN PATTON DO Ot 496 CHR AIRWAY OBSTRUCT NEC 10/03/2016 FLYNN PATTON DO Ot 727.61 ROTATOR CUFF RUPTURE 10/03/2016 FLYNN PATTON DO Ot 786.05 SHORTNESS OF BREATH 10/03/2016 FLYNN PATTON DO Ot V72.83 EXAM PRE-OPERATIVE NEC 10/03/2016 FLYNN PATTON DO Ot V74.8 SCREEN-BACTERIAL DIS NEC 10/03/2016 ELISEO BENDER Ot Z12.31 ENCNTR SCREEN MAMMOGRAM FOR MALIGNANT NE 10/03/2016 DANAY OLIVER MOLD CAR PUSHER Ot I10 ESSENTIAL (PRIMARY) HYPERTENSION 10/03/2016 DANAY OLIVER MOLD CAR PUSHER Ot R00.2 PALPITATIONS 10/03/2016 DANAY OLIVER MOLD CAR PUSHER Ot R06.00 DYSPNEA, UNSPECIFIED 10/03/2016 DANAY OLIVER MOLD CAR PUSHER Ot R07.9 CHEST PAIN, UNSPECIFIED 10/03/2016 DANAY OLIVER MOLD CAR PUSHER Ot R60.9 EDEMA, UNSPECIFIED 10/03/2016 DANAY OLIVER MOLD CAR PUSHER Ot I10 ESSENTIAL (PRIMARY) HYPERTENSION 10/03/2016 DANAY OLIVER MOLD CAR PUSHER Ot R00.2 PALPITATIONS 10/03/2016 BAIMA, DANAY L MOLD CAR PUSHER Ot R06.00 DYSPNEA, UNSPECIFIED 10/03/2016 BAIMA, DANAY L MOLD CAR PUSHER Ot R07.9 CHEST PAIN, UNSPECIFIED 10/03/2016 BAIMA, DANAY L MOLD CAR PUSHER Ot R60.9 EDEMA, UNSPECIFIED 10/03/2016 ELISEO BENDER MOLD CAR PUSHER Ot E04.1 NONTOXIC SINGLE THYROID NODULE 10/03/2016 ZUNIGA, DUSTIN Zaragoza Ot E04.2 NONTOXIC MULTINODULAR GOITER 10/03/2016 ZUNIGA, DUSTIN Zaragoza Ot R13.10 DYSPHAGIA, UNSPECIFIED 10/03/2016 ZUNIGA, DUSTIN Zaragoza Ot Z01.818 ENCOUNTER FOR OTHER PREPROCEDURAL EXAMIN 10/03/2016 ELISEO BENDER MOLD CAR PUSHER Ot E04.1 NONTOXIC SINGLE THYROID NODULE 10/03/2016 ZUNIGA, DUSTIN Zaragoza Ot E04.2 NONTOXIC MULTINODULAR GOITER 10/03/2016 BAIMA, DANAY L MOLD CAR PUSHER Ot I10 ESSENTIAL (PRIMARY) HYPERTENSION 10/03/2016 BAIMA, DANAY L MOLD CAR PUSHER Ot R00.2 PALPITATIONS 10/03/2016 BAIMA, DANAY L MOLD CAR PUSHER Ot R06.00 DYSPNEA, UNSPECIFIED 10/03/2016 BAIMA, DANAY L MOLD CAR PUSHER Ot R07.9 CHEST PAIN, UNSPECIFIED 10/03/2016 BAIMA, DANAY L MOLD CAR PUSHER Ot R60.9 EDEMA, UNSPECIFIED 10/03/2016 ELISEO BENDER MOLD CAR PUSHER Ot E04.1 NONTOXIC SINGLE THYROID NODULE 10/03/2016 BAIMA, DANAY L MOLD CAR PUSHER Ot I10 ESSENTIAL (PRIMARY) HYPERTENSION 10/03/2016 BAIMA, DANAY L MOLD CAR PUSHER Ot R00.2 PALPITATIONS 10/03/2016 BAIMA, DANAY L MOLD CAR PUSHER Ot R06.00 DYSPNEA, UNSPECIFIED 10/03/2016 BAIMA, DANAY L MOLD CAR PUSHER Ot R07.9 CHEST PAIN, UNSPECIFIED 10/03/2016 BAIMA, DANAY L MOLD CAR PUSHER Ot R60.9 EDEMA, UNSPECIFIED 10/17/2016 BAIMA, DANAY L MOLD CAR PUSHER Ot I10 ESSENTIAL (PRIMARY) HYPERTENSION 10/17/2016 BAIMA, DANAY L MOLD CAR PUSHER Ot R00.2 PALPITATIONS 10/17/2016 BAIMA, DANAY L MOLD CAR PUSHER Ot R06.00 DYSPNEA, UNSPECIFIED 10/17/2016 DANAY OLIVER MOLD CAR PUSHER Ot R07.9 CHEST PAIN, UNSPECIFIED 10/17/2016 DANAY OLIVER MOLD CAR PUSHER Ot R60.9 EDEMA, UNSPECIFIED 10/17/2016 ELISEO BENDER MOLD CAR PUSHER Ot E04.1 NONTOXIC SINGLE THYROID NODULE 10/17/2016 ZUNIGA, DUSTIN Zaragoza Ot E04.2 NONTOXIC MULTINODULAR GOITER 10/28/2016 Ot 781.2 ABNORMALITY OF GAIT 10/28/2016 Ot 784.0 HEADACHE 10/28/2016 Ot V15.88 HISTORY OF FALL 10/28/2016 Ot 784.0 HEADACHE 10/28/2016 Ot V15.88 HISTORY OF FALL 10/28/2016 Ot V81.5 SCREEN FOR NEPHROPATHY 10/28/2016 Ot 241.0 NONTOX UNINODULAR GOITER 10/28/2016 Ot 433.10 CAROTID ARTERY OCCLUSION W O CEREBRAL IN 10/28/2016 Ot 780.93 MEMORY LOSS 10/28/2016 Ot 241.1 NONTOX MULTINODUL GOITER 10/28/2016 ZUNIGA, DUSTIN Zaragoza Ot V72.84 EXAM PRE-OPERATIVE NOS 10/28/2016 ZUNIGA, DUSTIN Zaragoza Ot 562.10 DIVERTICULOSIS COLON (W/O MENT OF HEMORR 10/28/2016 ZUNIGA, DUSTIN Zaragoza Ot V16.0 FAMILY HX-GI MALIGNANCY 10/28/2016 DUSTIN DAVE MD Ot V76.51 SCREEN MAL NEOP-COLON 10/28/2016 CHARLES MARTINES MEMBERSHIP ADVISOR Ot 621.30 ENDOMETRIAL HYPERPLASIA, UNSPECIFIED 10/28/2016 CHARLES MARTINES MEMBERSHIP ADVISOR Ot 788.30 UNSPECIFIED URINARY INCONTINENCE 10/28/2016 CHARLES MARTINES MEMBERSHIP ADVISOR Ot 611.72 LUMP OR MASS IN BREAST 10/28/2016 MARIETTA HERCULES MD Ot 721.3 LUMBOSACRAL SPONDYLOSIS 10/28/2016 MARIETTA HERCULES MD Ot 722.52 LUMB/LUMBOSAC DISC DEGEN 10/28/2016 MARIETTA HERCULES MD Ot 729.1 MYALGIA AND MYOSITIS NOS 10/28/2016 MARIETTA HERCULES MD Ot V58.69 OT MED,LT,CURRENT USE 10/28/2016 MARIETTA HERCULES MD Ot 721.3 LUMBOSACRAL SPONDYLOSIS 10/28/2016 MARIETTA HERCULES MD Ot 722.52 LUMB/LUMBOSAC DISC DEGEN 10/28/2016 MARIETTA HERCULES MD Ot 726.5 ENTHESOPATHY OF HIP 10/28/2016 MARIETTA HERCULES MD Ot 729.1 MYALGIA AND MYOSITIS NOS 10/28/2016 MARIETTA HERCULES MD Ot V58.69 OT MED,LT,CURRENT USE 10/28/2016 KENDALL GOODWIN MD Ot 715.31 LOC OSTEOARTH NOS-SHLDER 10/28/2016 KENDALL GOODWIN MD Ot 726.10 BURSAE TENDONS DIS SHLDER NOS 10/28/2016 KENDALL GOODWIN MD Ot E000.8 OTHER EXTERNAL CAUSE STATUS 10/28/2016 KENDALL GOODWIN MD Ot E849.0 ACCIDENT IN HOME 10/28/2016 KENDALL GOODWIN MD Ot E885.9 FALL FROM SLIPPING, TRIPPING, OR STUMBLI 10/28/2016 JOCELYN ZUNIGA FACC, ALI FACP CCDS Ot 401.9 HYPERTENSION NOS 10/28/2016 JOCELYN RAHMANC, ALI FACP CCDS Ot 785.2 CARDIAC MURMURS NEC 10/28/2016 JOCELYN ZUNIGA FACC, ALI FACP CCDS Ot 786.05 SHORTNESS OF BREATH 10/28/2016 JOCELYN ZUNIGA FACC, ALI FACP CCDS Ot 789.03 ABDOMINAL PAIN, RIGHT LOWER QUADRANT 10/28/2016 JOCELYN RAHMANC, ALI FACP CCDS Ot 789.30 ABDOMINAL/PELVIC SWELLING,MASS/LUMP UNSP 10/28/2016 JOCELYN RAHMANC, ALI FACP CCDS Ot V45.89 POSTSURGICAL STATES NEC 10/28/2016 KENDALL GOODWIN MD Ot 726.2 SHOULDER REGION DIS NEC 10/28/2016 KENDALL GOODWIN MD Ot V28.4 SCREEN- RETARDATION 10/28/2016 KENDALL GOODWIN MD Ot V72.63 PRE-PROCEDURAL LABORATORY EXAMINATION 10/28/2016 KENDALL GOODWIN MD Ot V74.8 SCREEN-BACTERIAL DIS NEC 10/28/2016 CARLOS ALBERTO ARIAS MD Ot 719.7 DIFFICULTY IN WALKING 10/28/2016 CARLOS ALBERTO ARIAS MD Ot 722.52 LUMB/LUMBOSAC DISC DEGEN 10/28/2016 HUGO ZUNIGA, CARLOS ALBERTO Boogie Ot 729.5 PAIN IN LIMB 10/28/2016 HUGO ZUNIGA, CARLOS ALBERTO Boogie Ot 782.1 NONSPECIF SKIN ERUPT NEC 10/28/2016 ELISEO BENDER Ot V76.12 OTH SCREEN MAMMO-MALIGN NEOPLASM OF CHRIS 10/28/2016 JENNA SPECIAL EDUCATION COORDINATOR, CLEMENCIA J Ot 721.3 LUMBOSACRAL SPONDYLOSIS 10/28/2016 ELISEO BENDERP Ot 724.5 BACKACHE NOS 10/28/2016 ELISEO BENDER Ot V45.4 ARTHRODESIS STATUS 10/28/2016 DANAY OLIVER MOLD CAR PUSHER Ot 785.1 PALPITATIONS 10/28/2016 Ot 721.0 CERVICAL SPONDYLOSIS 10/28/2016 Ot 726.0 ADHESIVE CAPSULIT SHLDER 10/28/2016 ABDI , FLYNN F Ot 496 CHR AIRWAY OBSTRUCT NEC 10/28/2016 FLYNN PATTON DO F Ot 727.61 ROTATOR CUFF RUPTURE 10/28/2016 ABDI VELASQUEZ, FLYNN F Ot 786.05 SHORTNESS OF BREATH 10/28/2016 ABDI VELASQUEZ FLYNN F Ot V72.83 EXAM PRE-OPERATIVE NEC 10/28/2016 FLYNN PATTON DO Ot V74.8 SCREEN-BACTERIAL DIS NEC 10/28/2016 ELISEO BENDER Ot Z12.31 ENCNTR SCREEN MAMMOGRAM FOR MALIGNANT NE 10/28/2016 DANAY OLIVER MOLD CAR PUSHER Ot I10 ESSENTIAL (PRIMARY) HYPERTENSION 10/28/2016 DANAY OLIVER L MOLD CAR PUSHER Ot R00.2 PALPITATIONS 10/28/2016 DANAY OLIVER L MOLD CAR PUSHER Ot R06.00 DYSPNEA, UNSPECIFIED 10/28/2016 DANAY OLIVER L MOLD CAR PUSHER Ot R07.9 CHEST PAIN, UNSPECIFIED 10/28/2016 MELODY DANAY L MOLD CAR PUSHER Ot R60.9 EDEMA, UNSPECIFIED 10/28/2016 MELODY DANAY L MOLD CAR PUSHER Ot I10 ESSENTIAL (PRIMARY) HYPERTENSION 10/28/2016 INGRID OLIVERHER L MOLD CAR PUSHER Ot R00.2 PALPITATIONS 10/28/2016 MELODY DANAY L MOLD CAR PUSHER Ot R06.00 DYSPNEA, UNSPECIFIED 10/28/2016 DANAY OLIVER MOLD CAR PUSHER Ot R07.9 CHEST PAIN, UNSPECIFIED 10/28/2016 DANAY OLIVER MOLD CAR PUSHER Ot R60.9 EDEMA, UNSPECIFIED 10/28/2016 ELISEO BENDER MOLD CAR PUSHER Ot E04.1 NONTOXIC SINGLE THYROID NODULE 10/28/2016 ZUNIGA, DUSTIN Zaragoza Ot E04.2 NONTOXIC MULTINODULAR GOITER 10/28/2016 ZUNIGA, DUSTIN Zaragoza Ot R13.10 DYSPHAGIA, UNSPECIFIED 10/28/2016 ZUNIGA, DUSTIN Zaragoza Ot Z01.818 ENCOUNTER FOR OTHER PREPROCEDURAL EXAMIN 10/28/2016 ZUNIGA, DUSTIN Zaragoza Ot E05.90 THYROTOXICOSIS, UNSP WITHOUT THYROTOXIC 10/29/2016 ZUNIGA, DUSTIN Zaragoza Ot E05.90 THYROTOXICOSIS, UNSP WITHOUT THYROTOXIC 10/29/2016 ZUNIGA, DUSTIN Zaragoza Ot R53.83 OTHER FATIGUE 11/03/2016 ZUNIGA, DUSTIN Zaragoza Ot E05.90 THYROTOXICOSIS, UNSP WITHOUT THYROTOXIC 11/03/2016 ZUNIGA, DUSTIN Zaragoza Ot R53.83 OTHER FATIGUE 11/18/2016 ZUNIGA, DUSTIN Zaragoza Ot E05.90 THYROTOXICOSIS, UNSP WITHOUT THYROTOXIC 11/18/2016 ZUNIGA, DUSTIN Zaragoza Ot R53.83 OTHER FATIGUE 01/13/2017 Ot 784.0 HEADACHE 01/13/2017 Ot V15.88 HISTORY OF FALL 01/13/2017 Ot V81.5 SCREEN FOR NEPHROPATHY 01/13/2017 Ot 241.0 NONTOX UNINODULAR GOITER 01/13/2017 Ot 433.10 CAROTID ARTERY OCCLUSION W O CEREBRAL IN 01/13/2017 Ot 780.93 MEMORY LOSS 01/13/2017 Ot 241.1 NONTOX MULTINODUL GOITER 01/13/2017 ZUNIGA, DUSTIN Zaragoza Ot V72.84 EXAM PRE-OPERATIVE NOS 01/13/2017 ZUNIGA, DUSTIN Zaragoza Ot 562.10 DIVERTICULOSIS COLON (W/O MENT OF HEMORR 01/13/2017 DUSTIN DAVE MD Ot V16.0 FAMILY HX-GI MALIGNANCY 01/13/2017 DUSTIN DAVE MD Ot V76.51 SCREEN MAL NEOP-COLON 01/13/2017 CONRAD, CHARLES A MEMBERSHIP ADVISOR Ot 621.30 ENDOMETRIAL HYPERPLASIA, UNSPECIFIED 01/13/2017 GEORGETTE MARTINESBHUPENDRA Wood MEMBERSHIP ADVISOR Ot 788.30 UNSPECIFIED URINARY INCONTINENCE 01/13/2017 GEORGETTE MARTINESBHUPENDRA Wood MEMBERSHIP ADVISOR Ot 611.72 LUMP OR MASS IN BREAST 01/13/2017 MARIETTA HERCULES MD Ot 721.3 LUMBOSACRAL SPONDYLOSIS 01/13/2017 MARIETTA HERCULES MD Ot 722.52 LUMB/LUMBOSAC DISC DEGEN 01/13/2017 MARIETTA HERCULES MD Ot 729.1 MYALGIA AND MYOSITIS NOS 01/13/2017 MARIETTA HERCULES MD, Ot V58.69 OTH MED,LT,CURRENT USE 01/13/2017 MARIETTA HERCULES MD Ot 721.3 LUMBOSACRAL SPONDYLOSIS 01/13/2017 MARIETTA HERCULES MD, Ot 722.52 LUMB/LUMBOSAC DISC DEGEN 01/13/2017 MARIETTA HERCULES MD Ot 726.5 ENTHESOPATHY OF HIP 01/13/2017 MARIETTA HERCULES MD Ot 729.1 MYALGIA AND MYOSITIS NOS 01/13/2017 MARIETTA HERCULES MD, Ot V58.69 OTH MED,LT,CURRENT USE 01/13/2017 KENDALL GOODWIN MD Ot 715.31 LOC OSTEOARTH NOS-SHLDER 01/13/2017 KENDALL GOODWIN MD Ot 726.10 BURSAE TENDONS DIS SHLDER NOS 01/13/2017 KENDALL GOODWIN MD Ot E000.8 OTHER EXTERNAL CAUSE STATUS 01/13/2017 KENDALL GOODWIN MD Ot E849.0 ACCIDENT IN HOME 01/13/2017 KENDALL GOODWIN MD Ot E885.9 FALL FROM SLIPPING, TRIPPING, OR STUMBLI 01/13/2017 JOCELYN ZUNIGA FACC, KEIRA FACP CCDS Ot 401.9 HYPERTENSION NOS 01/13/2017 JOCELYN ZUNIGA FACC, KEIRA FACP CCDS Ot 785.2 CARDIAC MURMURS NEC 01/13/2017 KEIRA BANKS MD, FACC FACP CCDS Ot 786.05 SHORTNESS OF BREATH 01/13/2017 KEIRA BANKS MD, FACC FACP CCDS Ot 789.03 ABDOMINAL PAIN, RIGHT LOWER QUADRANT 01/13/2017 KEIRA BANKS MD, FACC FACP CCDS Ot 789.30 ABDOMINAL/PELVIC SWELLING,MASS/LUMP UNSP 01/13/2017 JOCELYN ZUNIGA FAC, ALI FACP CCDS Ot V45.89 POSTSURGICAL STATES NEC 01/13/2017 KENDALL GOODWIN MD Ot 726.2 SHOULDER REGION DIS NEC 01/13/2017 KENDALL GOODWIN MD Ot V28.4 SCREEN- RETARDATION 01/13/2017 KENDALL GOODWIN MD Ot V72.63 PRE-PROCEDURAL LABORATORY EXAMINATION 01/13/2017 KENDALL GOODWIN MD Ot V74.8 SCREEN-BACTERIAL DIS NEC 01/13/2017 CARLOS ALBERTO ARIAS MD Ot 719.7 DIFFICULTY IN WALKING 01/13/2017 CARLOS ALBERTO ARIAS MD Ot 722.52 LUMB/LUMBOSAC DISC DEGEN 01/13/2017 CARLOS ALBERTO ARIAS MD Ot 729.5 PAIN IN LIMB 01/13/2017 CARLOS ALBERTO ARIAS MD Ot 782.1 NONSPECIF SKIN ERUPT NEC 01/13/2017 ELISEO BENDER Ot V76.12 OTH SCREEN MAMMO-MALIGN NEOPLASM OF CHRIS 01/13/2017 JENNA SPECIAL EDUCATION COORDINATOR, CLEMENCIA Daugherty Ot 721.3 LUMBOSACRAL SPONDYLOSIS 01/13/2017 ELISEO BENDER Ot 724.5 BACKACHE NOS 01/13/2017 ELISEO BENDER Ot V45.4 ARTHRODESIS STATUS 01/13/2017 DANAY OLIVER Ot 785.1 PALPITATIONS 01/13/2017 Ot 721.0 CERVICAL SPONDYLOSIS 01/13/2017 Ot 726.0 ADHESIVE CAPSULIT SHLDER 01/13/2017 FLYNN PATTON DO Ot 496 CHR AIRWAY OBSTRUCT NEC 01/13/2017 FLYNN PATTON DO Ot 727.61 ROTATOR CUFF RUPTURE 01/13/2017 FLYNN PATTON DO Ot 786.05 SHORTNESS OF BREATH 01/13/2017 FLYNN PATTON DO Ot V72.83 EXAM PRE-OPERATIVE NEC 01/13/2017 FLYNN PATTON DO Ot V74.8 SCREEN-BACTERIAL DIS NEC 01/13/2017 ELISEO BENDER Ot Z12.31 ENCNTR SCREEN MAMMOGRAM FOR MALIGNANT NE 01/13/2017 BAIMA, DANAY L MOLD CAR PUSHER Ot I10 ESSENTIAL (PRIMARY) HYPERTENSION 01/13/2017 BAIMA, DANAY L MOLD CAR PUSHER Ot R00.2 PALPITATIONS 01/13/2017 BAIMA, DANAY L MOLD CAR PUSHER Ot R06.00 DYSPNEA, UNSPECIFIED 01/13/2017 BAIMA, DANAY L MOLD CAR PUSHER Ot R07.9 CHEST PAIN, UNSPECIFIED 01/13/2017 BAIMA, DANAY L MOLD CAR PUSHER Ot R60.9 EDEMA, UNSPECIFIED 01/13/2017 BAIMA, DANAY L MOLD CAR PUSHER Ot I10 ESSENTIAL (PRIMARY) HYPERTENSION 01/13/2017 BAIMA, DANAY L MOLD CAR PUSHER Ot R00.2 PALPITATIONS 01/13/2017 BAIMA, DANAY L MOLD CAR PUSHER Ot R06.00 DYSPNEA, UNSPECIFIED 01/13/2017 BAIMA, DANAY L MOLD CAR PUSHER Ot R07.9 CHEST PAIN, UNSPECIFIED 01/13/2017 BAIMA, DANAY L MOLD CAR PUSHER Ot R60.9 EDEMA, UNSPECIFIED 01/13/2017 ELISEO BENDER Ot E04.1 NONTOXIC SINGLE THYROID NODULE 01/13/2017 ZUNIGA, DUSTIN Zaragoza Ot E04.2 NONTOXIC MULTINODULAR GOITER 01/13/2017 ZUNIGA, DUSTIN Zaragoza Ot R13.10 DYSPHAGIA, UNSPECIFIED 01/13/2017 ZUNIGA, DUSTIN Zaragoza Ot Z01.818 ENCOUNTER FOR OTHER PREPROCEDURAL EXAMIN 01/13/2017 ZUNIGA, DUSTIN Zaragoza Ot E05.90 THYROTOXICOSIS, UNSP WITHOUT THYROTOXIC 01/13/2017 ZUNIGA, DUSTIN Zaragoza Ot R53.83 OTHER FATIGUE 01/13/2017 ELISEO BENDER Ot Z12.31 ENCNTR SCREEN MAMMOGRAM FOR MALIGNANT NE 01/13/2017 ELISEO BENDER Ot Z12.31 ENCNTR SCREEN MAMMOGRAM FOR MALIGNANT NE 01/13/2017 ELISEO BENDER Ot Z12.31 ENCNTR SCREEN MAMMOGRAM FOR MALIGNANT NE 02/16/2017 ELISEO BENDER Ot Z12.31 ENCNTR SCREEN MAMMOGRAM FOR MALIGNANT NE 02/16/2017 SUNDYA ZUNIGA, DUSTIN Zaragoza Ot C73 MALIGNANT NEOPLASM OF THYROID GLAND 03/11/2017 Ot 241.0 NONTOX UNINODULAR GOITER 03/11/2017 Ot 433.10 CAROTID ARTERY OCCLUSION W O CEREBRAL IN 03/11/2017 Ot 780.93 MEMORY LOSS 03/11/2017 Ot 241.1 NONTOX MULTINODUL GOITER 03/11/2017 DUSTIN DAVE MD Ot V72.84 EXAM PRE-OPERATIVE NOS 03/11/2017 DUSTIN DAVE MD Ot 562.10 DIVERTICULOSIS COLON (W/O MENT OF HEMORR 03/11/2017 DUSTIN DAVE MD Ot V16.0 FAMILY HX-GI MALIGNANCY 03/11/2017 DUSTIN DAVE MD Ot V76.51 SCREEN MAL NEOP-COLON 03/11/2017 CHARLES MARTINES MEMBERSHIP ADVISOR Ot 621.30 ENDOMETRIAL HYPERPLASIA, UNSPECIFIED 03/11/2017 CHARLES MARTINES MEMBERSHIP ADVISOR Ot 788.30 UNSPECIFIED URINARY INCONTINENCE 03/11/2017 CHARLES MARTINES MEMBERSHIP ADVISOR Ot 611.72 LUMP OR MASS IN BREAST 03/11/2017 MARIETTA HERCULES MD Ot 721.3 LUMBOSACRAL SPONDYLOSIS 03/11/2017 MARIETTA HERCULES MD Ot 722.52 LUMB/LUMBOSAC DISC DEGEN 03/11/2017 MARIETTA HERCULES MD Ot 729.1 MYALGIA AND MYOSITIS NOS 03/11/2017 MARIETTA HERCULES MD Ot V58.69 OTH MED,LT,CURRENT USE 03/11/2017 MARIETTA HERCULES MD Ot 721.3 LUMBOSACRAL SPONDYLOSIS 03/11/2017 MARIETTA HERCULES MD Ot 722.52 LUMB/LUMBOSAC DISC DEGEN 03/11/2017 MARIETTA HERCULES MD Ot 726.5 ENTHESOPATHY OF HIP 03/11/2017 MARIETTA HERCULES MD Ot 729.1 MYALGIA AND MYOSITIS NOS 03/11/2017 MARIETTA HERCULES MD, Ot V58.69 OTH MED,LT,CURRENT USE 03/11/2017 KENDALL GOODWIN MD Ot 715.31 LOC OSTEOARTH NOS-SHLDER 03/11/2017 KENDALL GOODWIN MD Ot 726.10 BURSAE TENDONS DIS SHLDER NOS 03/11/2017 KENDALL GOODWIN MD Ot E000.8 OTHER EXTERNAL CAUSE STATUS 03/11/2017 KENDALL GOODWIN MD Ot E849.0 ACCIDENT IN HOME 03/11/2017 KENDALL GOODWIN MD Ot E885.9 FALL FROM SLIPPING, TRIPPING, OR STUMBLI 03/11/2017 JOCELYN ZUNIGA [facility], KEIRA RAHMANP CCDS Ot 401.9 HYPERTENSION NOS 03/11/2017 JOCELYN ZUNIGA FACC, KEIRA [facility] CCDS Ot 785.2 CARDIAC MURMURS NEC 03/11/2017 JOCELYN ZUNIGA FACC, KEIRA FACP CCDS Ot 786.05 SHORTNESS OF BREATH 03/11/2017 JOCELYN ZUNIGA FACC, KEIRA FACP CCDS Ot 789.03 ABDOMINAL PAIN, RIGHT LOWER QUADRANT 03/11/2017 JOCELYN ZUNIGA FACC, KEIRA FACP CCDS Ot 789.30 ABDOMINAL/PELVIC SWELLING,MASS/LUMP UNSP 03/11/2017 JOCELYN ZUNIGA FACC, KEIRA LOGAN CCDS Ot V45.89 POSTSURGICAL STATES NEC 03/11/2017 KENDALL GOODWIN MD Ot 726.2 SHOULDER REGION DIS NEC 03/11/2017 KENDALL GOODWIN MD Ot V28.4 SCREEN- RETARDATION 03/11/2017 KENDALL GOODWIN MD Ot V72.63 PRE-PROCEDURAL LABORATORY EXAMINATION 03/11/2017 KENDALL GOODWIN MD Ot V74.8 SCREEN-BACTERIAL DIS NEC 03/11/2017 CARLOS ALBERTO ARIAS MD Ot 719.7 DIFFICULTY IN WALKING 03/11/2017 CARLOS ALBERTO ARIAS MD Ot 722.52 LUMB/LUMBOSAC DISC DEGEN 03/11/2017 CARLOS ALBERTO ARIAS MD Ot 729.5 PAIN IN LIMB 03/11/2017 CARLOS ALBERTO ARIAS MD Ot 782.1 NONSPECIF SKIN ERUPT NEC 03/11/2017 ELISEO BENDER Ot V76.12 OTH SCREEN MAMMO-MALIGN NEOPLASM OF CHRIS 03/11/2017 JENNA SPECIAL EDUCATION COORDINATOR, CLEMENCIA Daugherty Ot 721.3 LUMBOSACRAL SPONDYLOSIS 03/11/2017 ELISEO BENDER Ot 724.5 BACKACHE NOS 03/11/2017 ELISEO BENDER Ot V45.4 ARTHRODESIS STATUS 03/11/2017 DANAY OLIVER MOLD CAR PUSHER Ot 785.1 PALPITATIONS 03/11/2017 Ot 721.0 CERVICAL SPONDYLOSIS 03/11/2017 Ot 726.0 ADHESIVE CAPSULIT SHLDER 03/11/2017 ABDI , FLYNN Mcginnis Ot 496 CHR AIRWAY OBSTRUCT NEC 03/11/2017 FLYNN PATTON DO Ot 727.61 ROTATOR CUFF RUPTURE 03/11/2017 FLYNN PATTON DO Ot 786.05 SHORTNESS OF BREATH 03/11/2017 FLYNN PATTON DO Ot V72.83 EXAM PRE-OPERATIVE NEC 03/11/2017 FLYNN PATTON DO Ot V74.8 SCREEN-BACTERIAL DIS NEC 03/11/2017 ELISEO BENDER Ot Z12.31 ENCNTR SCREEN MAMMOGRAM FOR MALIGNANT NE 03/11/2017 JUANMA, DANAY L MOLD CAR PUSHER Ot I10 ESSENTIAL (PRIMARY) HYPERTENSION 03/11/2017 BAIMA, DANAY L MOLD CAR PUSHER Ot R00.2 PALPITATIONS 03/11/2017 BAIMA, DANAY L MOLD CAR PUSHER Ot R06.00 DYSPNEA, UNSPECIFIED 03/11/2017 BAIMA, DANAY L MOLD CAR PUSHER Ot R07.9 CHEST PAIN, UNSPECIFIED 03/11/2017 BAIMA, DANAY L MOLD CAR PUSHER Ot R60.9 EDEMA, UNSPECIFIED 03/11/2017 BAIMA, DANAY L MOLD CAR PUSHER Ot I10 ESSENTIAL (PRIMARY) HYPERTENSION 03/11/2017 BAIMA, DANAY L MOLD CAR PUSHER Ot R00.2 PALPITATIONS 03/11/2017 BAIMA, DANAY L MOLD CAR PUSHER Ot R06.00 DYSPNEA, UNSPECIFIED 03/11/2017 BAIMA, DANAY L MOLD CAR PUSHER Ot R07.9 CHEST PAIN, UNSPECIFIED 03/11/2017 BAIMA, DANAY L MOLD CAR PUSHER Ot R60.9 EDEMA, UNSPECIFIED 03/11/2017 ELISEO BENDERP Ot E04.1 NONTOXIC SINGLE THYROID NODULE 03/11/2017 ZUNIGA, DUSTIN Zaragoza Ot E04.2 NONTOXIC MULTINODULAR GOITER 03/11/2017 ZUNIGA, DUSTIN Zaragoza Ot R13.10 DYSPHAGIA, UNSPECIFIED 03/11/2017 ZUNIGA, DUSTIN Zaragoza Ot Z01.818 ENCOUNTER FOR OTHER PREPROCEDURAL EXAMIN 03/11/2017 ZUNIGA, DUSTIN Zaragoza Ot E05.90 THYROTOXICOSIS, UNSP WITHOUT THYROTOXIC 03/11/2017 ZUNIGA, DUSTIN Zaragoza Ot R53.83 OTHER FATIGUE 03/11/2017 YULIA, ELISEO MOLD CAR PUSHER Ot Z12.31 ENCNTR SCREEN MAMMOGRAM FOR MALIGNANT NE 03/11/2017 ZUNIGA, DUSTIN Zaragoza Ot C73 MALIGNANT NEOPLASM OF THYROID GLAND 04/03/2017 ELISEO BENDER MOLD CAR PUSHER Ot K57.30 DVRTCLOS OF LG INT W/O PERFORATION OR AB 04/03/2017 ELISEO BENDER MOLD CAR PUSHER Ot K59.00 CONSTIPATION, UNSPECIFIED 07/07/2017 CIERRA ZUNIGA, DORINA Daugherty Ot M06.9 RHEUMATOID ARTHRITIS, UNSPECIFIED 07/08/2017 ZUNIGA, DUSTIN Zaragoza Ot C73 MALIGNANT NEOPLASM OF THYROID GLAND 07/13/2017 CIERRA ZUNIGA, DORINA Daugherty Ot M06.9 RHEUMATOID ARTHRITIS, UNSPECIFIED 07/22/2017 BAIMA, DANAY L MOLD CAR PUSHER Ot R00.2 PALPITATIONS 07/23/2017 BAIMA, DANAY L MOLD CAR PUSHER Ot R00.2 PALPITATIONS 07/28/2017 BAIMA, DANAY L MOLD CAR PUSHER Ot G47.30 SLEEP APNEA, UNSPECIFIED 07/28/2017 BAIMA, DANAY L MOLD CAR PUSHER Ot I10 ESSENTIAL (PRIMARY) HYPERTENSION 07/28/2017 BAIMA, DANAY L MOLD CAR PUSHER Ot R00.2 PALPITATIONS 07/28/2017 BAIMA, DANAY L MOLD CAR PUSHER Ot R06.02 SHORTNESS OF BREATH 07/28/2017 CIERRA ZUNIGA, DORINA Daugherty Ot M06.9 RHEUMATOID ARTHRITIS, UNSPECIFIED 07/28/2017 ZUNIGA, DUSTIN Zaragoza Ot C73 MALIGNANT NEOPLASM OF THYROID GLAND 08/18/2017 BAIMA, DANAY L MOLD CAR PUSHER Ot G47.30 SLEEP APNEA, UNSPECIFIED 08/18/2017 BAIMA, DANAY L MOLD CAR PUSHER Ot I10 ESSENTIAL (PRIMARY) HYPERTENSION 08/18/2017 BAIMA, DANAY L MOLD CAR PUSHER Ot R00.2 PALPITATIONS 08/18/2017 BAIMA, DANAY L MOLD CAR PUSHER Ot R06.02 SHORTNESS OF BREATH 10/20/2017 ORESTES ZUNIGA, SHAQ Daugherty Ot E03.9 HYPOTHYROIDISM, UNSPECIFIED 10/20/2017 ORESTES ZUNIGA, SHAQ Daugherty Ot F32.9 MAJOR DEPRESSIVE DISORDER, SINGLE EPISOD 10/20/2017 ORESTES ZUNIGA, SHAQ Daugherty Ot F41.9 ANXIETY DISORDER, UNSPECIFIED 10/20/2017 ORESTES ZUNIGA, SHAQ Daugherty Ot G43.909 MIGRAINE, UNSP, NOT INTRACTABLE, WITHOUT 10/20/2017 SHAQ CARLISLE MD Ot I10 ESSENTIAL (PRIMARY) HYPERTENSION 10/20/2017 SHAQ CARLISLE MD Ot J44.9 CHRONIC OBSTRUCTIVE PULMONARY DISEASE, U 10/20/2017 SHAQ CARLISLE MD Ot K21.9 GASTRO-ESOPHAGEAL REFLUX DISEASE WITHOUT 10/20/2017 SHAQ CARLISLE MD Ot M06.9 RHEUMATOID ARTHRITIS, UNSPECIFIED 10/20/2017 SHAQ CARLISLE MD Ot M54.32 SCIATICA, LEFT SIDE 10/20/2017 SHAQ CARLISLE MD Ot M54.5 LOW BACK PAIN 10/20/2017 SHAQ CARLISLE MD Ot R40.2142 COMA SCALE, EYES OPEN, SPONTANEOUS, EMR 10/20/2017 SHAQ CARLISLE MD Ot R40.2252 COMA SCALE, BEST VERBAL RESPONSE, ORIENT 10/20/2017 SHAQ CARLISLE MD Ot R40.2362 COMA SCALE, BEST MOTOR RESPONSE, OBEYS C 10/20/2017 SHAQ CARLISLE MD Ot S30.0XXA CONTUSION OF LOWER BACK AND PELVIS, INIT 10/20/2017 SHAQ CARLISLE MD Ot W10.8XXA FALL (ON) (FROM) OTHER STAIRS AND STEPS, 10/20/2017 SHAQ CARLISLE MD Ot Z79.84 STATE ASSESSED PROPERTIES DIRECTOR (CURRENT) USE OF ORAL HYPOGLYC 10/20/2017 SHAQ CARLISLE MD Ot Z90.89 ACQUIRED ABSENCE OF OTHER ORGANS 10/20/2017 SHAQ CARLISLE MD Ot Z91.048 OTHER NONMEDICINAL SUBSTANCE ALLERGY STA 10/20/2017 SHAQ CARLISLE MD Ot Z91.5 PERSONAL HISTORY OF SELF-HARM 10/22/2017 SHAQ CARLISLE MD Ot E03.9 HYPOTHYROIDISM, UNSPECIFIED 10/22/2017 SHAQ CARLISLE MD Ot F32.9 MAJOR DEPRESSIVE DISORDER, SINGLE EPISOD 10/22/2017 SHAQ CARLISLE MD Ot F41.9 ANXIETY DISORDER, UNSPECIFIED 10/22/2017 SHAQ CARLISLE MD Ot G43.909 MIGRAINE, UNSP, NOT INTRACTABLE, WITHOUT 10/22/2017 SHAQ CARLISLE MD Ot I10 ESSENTIAL (PRIMARY) HYPERTENSION 10/22/2017 SHAQ CARLISLE MD Ot J44.9 CHRONIC OBSTRUCTIVE PULMONARY DISEASE, U 10/22/2017 SHAQ CARLISLE MD Ot K21.9 GASTRO-ESOPHAGEAL REFLUX DISEASE WITHOUT 10/22/2017 SHAQ CARLISLE MD Ot M06.9 RHEUMATOID ARTHRITIS, UNSPECIFIED 10/22/2017 SHAQ CARLISLE MD Ot M54.32 SCIATICA, LEFT SIDE 10/22/2017 SHAQ CARLISLE MD Ot M54.5 LOW BACK PAIN 10/22/2017 SHAQ CARLISLE MD Ot R40.2142 COMA SCALE, EYES OPEN, SPONTANEOUS, EMR 10/22/2017 SHAQ CARLISLE MD Ot R40.2252 COMA SCALE, BEST VERBAL RESPONSE, ORIENT 10/22/2017 SHAQ CARLISLE MD Ot R40.2362 COMA SCALE, BEST MOTOR RESPONSE, OBEYS C 10/22/2017 SHAQ CARLISLE MD Ot S30.0XXA CONTUSION OF LOWER BACK AND PELVIS, INIT 10/22/2017 SHAQ CARLISLE MD Ot W10.8XXA FALL (ON) (FROM) OTHER STAIRS AND STEPS, 10/22/2017 SHAQ CARLISLE MD Ot Z79.84 STATE ASSESSED PROPERTIES DIRECTOR (CURRENT) USE OF ORAL HYPOGLYC 10/22/2017 SHAQ CARLISLE MD Ot Z90.89 ACQUIRED ABSENCE OF OTHER ORGANS 10/22/2017 SHAQ CARLISLE MD Ot Z91.048 OTHER NONMEDICINAL SUBSTANCE ALLERGY STA 10/22/2017 SHAQ CARLISLE MD Ot Z91.5 PERSONAL HISTORY OF SELF-HARM 10/23/2017 DANAY OLIVER MOLD CAR PUSHER Ot G47.30 SLEEP APNEA, UNSPECIFIED 10/23/2017 DANAY OLIVER MOLD CAR PUSHER Ot I10 ESSENTIAL (PRIMARY) HYPERTENSION 10/23/2017 DANAY OLIVER MOLD CAR PUSHER Ot R00.2 PALPITATIONS 10/23/2017 DANAY OLIVER MOLD CAR PUSHER Ot R06.02 SHORTNESS OF BREATH 10/30/2017 DORINA NORTON MD Ot M06.9 RHEUMATOID ARTHRITIS, UNSPECIFIED 11/10/2017 DORINA NORTON MD Ot M06.9 RHEUMATOID ARTHRITIS, UNSPECIFIED 11/15/2017 DORINA NORTON MD Ot M06.9 RHEUMATOID ARTHRITIS, UNSPECIFIED 11/24/2017 DORINA NORTON MD Ot M06.9 RHEUMATOID ARTHRITIS, UNSPECIFIED 12/01/2017 CIERRA ZUNIGA, DORINA Daugherty Ot M06.9 RHEUMATOID ARTHRITIS, UNSPECIFIED 01/27/2018 CIERRA ZUNIGA, DORINA Daugherty Ot M06.9 RHEUMATOID ARTHRITIS, UNSPECIFIED 02/17/2018 DORINA NORTON MD Ot M06.9 RHEUMATOID ARTHRITIS, UNSPECIFIED 03/16/2018 ELISEO BENDER DONTAE Ot Z12.31 ENCNTR SCREEN MAMMOGRAM FOR MALIGNANT NE 03/23/2018 ZUNIGA, DUSTIN Zaragoza Ot V72.84 EXAM PRE-OPERATIVE NOS 03/23/2018 ZUNIGA, DUSTIN Zaragoza Ot 562.10 DIVERTICULOSIS COLON (W/O MENT OF HEMORR 03/23/2018 DUSTIN DAVE MD Ot V16.0 FAMILY HX-GI MALIGNANCY 03/23/2018 DUSTIN DAVE MD Ot V76.51 SCREEN MAL NEOP-COLON 03/23/2018 CHARLES MARTINES MEMBERSHIP ADVISOR Ot 621.30 ENDOMETRIAL HYPERPLASIA, UNSPECIFIED 03/23/2018 CHARLES MARTINES MEMBERSHIP ADVISOR Ot 788.30 UNSPECIFIED URINARY INCONTINENCE 03/23/2018 CHARLES MARTINES MEMBERSHIP ADVISOR Ot 611.72 LUMP OR MASS IN BREAST 03/23/2018 MARIETTA HERCULES MD Ot 721.3 LUMBOSACRAL SPONDYLOSIS 03/23/2018 MARIETTA HERCULES MD Ot 722.52 LUMB/LUMBOSAC DISC DEGEN 03/23/2018 MARIETTA HERCULES MD Ot 729.1 MYALGIA AND MYOSITIS NOS 03/23/2018 MARIETTA HERCULES MD Ot V58.69 OTH MED,LT,CURRENT USE 03/23/2018 MARIETTA HERCULES MD Ot 721.3 LUMBOSACRAL SPONDYLOSIS 03/23/2018 MARIETTA HERCULES MD Ot 722.52 LUMB/LUMBOSAC DISC DEGEN 03/23/2018 MARIETTA HERCULES MD Ot 726.5 ENTHESOPATHY OF HIP 03/23/2018 MARIETTA HERCULES MD Ot 729.1 MYALGIA AND MYOSITIS NOS 03/23/2018 MARIETTA HERCULES MD Ot V58.69 OTH MED,LT,CURRENT USE 03/23/2018 KENDALL GOODWIN MD Ot 715.31 LOC OSTEOARTH NOS-SHLDER 03/23/2018 KENDALL GOODWIN MD Ot 726.10 BURSAE TENDONS DIS SHLDER NOS 03/23/2018 KENDALL GOODWIN MD Ot E000.8 OTHER EXTERNAL CAUSE STATUS 03/23/2018 KENDALL GOODWIN MD Ot E849.0 ACCIDENT IN HOME 03/23/2018 KENDALL GOODWIN MD Ot E885.9 FALL FROM SLIPPING, TRIPPING, OR STUMBLI 03/23/2018 JOCELYN ZUNIGA FACC, ALI FACP CCDS Ot 401.9 HYPERTENSION NOS 03/23/2018 JOCELYN ZUNIGA FACC, ALI FACP CCDS Ot 785.2 CARDIAC MURMURS NEC 03/23/2018 JOCELYN ZUNIGA FACC, ALI FACP CCDS Ot 786.05 SHORTNESS OF BREATH 03/23/2018 JOCELYN ZUNIGA FACC, ALI FACP CCDS Ot 789.03 ABDOMINAL PAIN, RIGHT LOWER QUADRANT 03/23/2018 JOCELYN ZUNIGA FACC, ALI FACP CCDS Ot 789.30 ABDOMINAL/PELVIC SWELLING,MASS/LUMP UNSP 03/23/2018 JOCELYN ZUNIGA FACC, ALI FACP CCDS Ot V45.89 POSTSURGICAL STATES NEC 03/23/2018 KENDALL GOODWIN MD Ot 726.2 SHOULDER REGION DIS NEC 03/23/2018 KENDALL GOODWIN MD Ot V28.4 SCREEN- RETARDATION 03/23/2018 KENDALL GOODWIN MD Ot V72.63 PRE-PROCEDURAL LABORATORY EXAMINATION 03/23/2018 KENDALL GOODWIN MD Ot V74.8 SCREEN-BACTERIAL DIS NEC 03/23/2018 CARLOS ALBERTO ARIAS MD Ot 719.7 DIFFICULTY IN WALKING 03/23/2018 CARLOS ALBERTO ARIAS MD Ot 722.52 LUMB/LUMBOSAC DISC DEGEN 03/23/2018 CARLOS ALBERTO ARIAS MD Ot 729.5 PAIN IN LIMB 03/23/2018 CARLOS ALBERTO ARIAS MD Ot 782.1 NONSPECIF SKIN ERUPT NEC 03/23/2018 ELISEO BENDER Ot V76.12 OTH SCREEN MAMMO-MALIGN NEOPLASM OF CHRIS 03/23/2018 JENNA PERALTA, CLEMENCIA Daugherty Ot 721.3 LUMBOSACRAL SPONDYLOSIS 03/23/2018 ELISEO BENDER Ot 724.5 BACKACHE NOS 03/23/2018 YULIA, ELISEO MOLD CAR PUSHER Ot V45.4 ARTHRODESIS STATUS 03/23/2018 DANAY OLIVER L MOLD CAR PUSHER Ot 785.1 PALPITATIONS 03/23/2018 Ot 721.0 CERVICAL SPONDYLOSIS 03/23/2018 Ot 726.0 ADHESIVE CAPSULIT SHLDER 03/23/2018 ABDI DO, FLYNN Mcginnis Ot 496 CHR AIRWAY OBSTRUCT NEC 03/23/2018 ABDI DO, FLYNN Mcginnis Ot 727.61 ROTATOR CUFF RUPTURE 03/23/2018 ABDI DO, FLYNN F Ot 786.05 SHORTNESS OF BREATH 03/23/2018 ABDI DO, FLYNN Mcginnis Ot V72.83 EXAM PRE-OPERATIVE NEC 03/23/2018 ABDI DO, FLYNN Mcginnis Ot V74.8 SCREEN-BACTERIAL DIS NEC 03/23/2018 ELISEO BENDERP Ot Z12.31 ENCNTR SCREEN MAMMOGRAM FOR MALIGNANT NE 03/23/2018 JUANCHALINO, DANAY L MOLD CAR PUSHER Ot I10 ESSENTIAL (PRIMARY) HYPERTENSION 03/23/2018 JUANMA, DANAY L MOLD CAR PUSHER Ot R00.2 PALPITATIONS 03/23/2018 BAIMA, DANAY L MOLD CAR PUSHER Ot R06.00 DYSPNEA, UNSPECIFIED 03/23/2018 BAIMA, DANAY L MOLD CAR PUSHER Ot R07.9 CHEST PAIN, UNSPECIFIED 03/23/2018 BAIMA, DANAY L MOLD CAR PUSHER Ot R60.9 EDEMA, UNSPECIFIED 03/23/2018 BAIMA, DANAY L MOLD CAR PUSHER Ot I10 ESSENTIAL (PRIMARY) HYPERTENSION 03/23/2018 BAIMA, DANAY L MOLD CAR PUSHER Ot R00.2 PALPITATIONS 03/23/2018 BAIMA, DANAY L MOLD CAR PUSHER Ot R06.00 DYSPNEA, UNSPECIFIED 03/23/2018 BAIMA, DANAY L MOLD CAR PUSHER Ot R07.9 CHEST PAIN, UNSPECIFIED 03/23/2018 BAIMA, DANAY L MOLD CAR PUSHER Ot R60.9 EDEMA, UNSPECIFIED 03/23/2018 ELISEO BENDERP Ot E04.1 NONTOXIC SINGLE THYROID NODULE 03/23/2018 ZUNIGA, DUSTIN Zaragoza Ot E04.2 NONTOXIC MULTINODULAR GOITER 03/23/2018 ZUNIGA, DUSTIN Zaragoza Ot R13.10 DYSPHAGIA, UNSPECIFIED 03/23/2018 ZUNIGA, DUSTIN Zaragoza Ot Z01.818 ENCOUNTER FOR OTHER PREPROCEDURAL EXAMIN 03/23/2018 ZUNIGA, DUSTIN Zaragoza Ot E05.90 THYROTOXICOSIS, UNSP WITHOUT THYROTOXIC 03/23/2018 ZUNIGA, DUSTIN Zaragoza Ot R53.83 OTHER FATIGUE 03/23/2018 ELISEO BENDER Ot Z12.31 ENCNTR SCREEN MAMMOGRAM FOR MALIGNANT NE 03/23/2018 ZUNIGA, DUSTIN Zaragoza Ot C73 MALIGNANT NEOPLASM OF THYROID GLAND 03/23/2018 ELISEO BENDER Ot K57.30 DVRTCLOS OF LG INT W/O PERFORATION OR AB 03/23/2018 ELISEO BENDER Ot K59.00 CONSTIPATION, UNSPECIFIED 03/23/2018 CIERRA ZUNIGA, DORINA Daugherty Ot M06.9 RHEUMATOID ARTHRITIS, UNSPECIFIED 03/23/2018 ZUNIGA, DUSTIN Zaragoza Ot C73 MALIGNANT NEOPLASM OF THYROID GLAND 03/23/2018 DANAY OLIVER MOLD CAR PUSHER Ot G47.30 SLEEP APNEA, UNSPECIFIED 03/23/2018 BAIDANAY ALLRED MOLD CAR PUSHER Ot I10 ESSENTIAL (PRIMARY) HYPERTENSION 03/23/2018 BAIDANAY ALLRED MOLD CAR PUSHER Ot R00.2 PALPITATIONS 03/23/2018 DANAY OLIVER L MOLD CAR PUSHER Ot R06.02 SHORTNESS OF BREATH 03/23/2018 CIERRA ZUNIGA, DORINA Daugherty Ot M06.9 RHEUMATOID ARTHRITIS, UNSPECIFIED 03/23/2018 CIERRA ZUNIGA, DORINA Daugherty Ot M06.9 RHEUMATOID ARTHRITIS, UNSPECIFIED 03/23/2018 CIERRA ZUNIGA, DORINA Daugherty Ot M06.9 RHEUMATOID ARTHRITIS, UNSPECIFIED 03/23/2018 ELISEO BENDER Ot Z12.31 ENCNTR SCREEN MAMMOGRAM FOR MALIGNANT NE 03/24/2018 ELISEO BENDER Ot Z12.31 ENCNTR SCREEN MAMMOGRAM FOR MALIGNANT NE 03/24/2018 ELISEO BENDER Ot Z53.8 PROCEDURE AND TREATMENT NOT CARRIED OUT 04/05/2018 ZUNIGA, DUSTIN Zaragoza Ot V72.84 EXAM PRE-OPERATIVE NOS 04/05/2018 ZUNIGA, DUSTIN Zaragoza Ot 562.10 DIVERTICULOSIS COLON (W/O MENT OF HEMORR 04/05/2018 DUSTIN DAVE MD Ot V16.0 FAMILY HX-GI MALIGNANCY 04/05/2018 ZUNIGA, DUSTIN M Ot V76.51 SCREEN MAL NEOP-COLON 04/05/2018 CHARLES MARTINES MEMBERSHIP ADVISOR Ot 621.30 ENDOMETRIAL HYPERPLASIA, UNSPECIFIED 04/05/2018 CHARLES MARTINES MEMBERSHIP ADVISOR Ot 788.30 UNSPECIFIED URINARY INCONTINENCE 04/05/2018 CHARLES MARTINES MEMBERSHIP ADVISOR Ot 611.72 LUMP OR MASS IN BREAST 04/05/2018 MARIETTA HERCULES MD Ot 721.3 LUMBOSACRAL SPONDYLOSIS 04/05/2018 MARIETTA HERCULES MD, Ot 722.52 LUMB/LUMBOSAC DISC DEGEN 04/05/2018 MARIETTA HERCULES MD, Ot 729.1 MYALGIA AND MYOSITIS NOS 04/05/2018 MARIETTA HERCULES MD, Ot V58.69 OTH MED,LT,CURRENT USE 04/05/2018 MARIETTA HERCULES MD Ot 721.3 LUMBOSACRAL SPONDYLOSIS 04/05/2018 MARIETTA HERCULES MD, Ot 722.52 LUMB/LUMBOSAC DISC DEGEN 04/05/2018 MARIETTA HERCULES MD Ot 726.5 ENTHESOPATHY OF HIP 04/05/2018 MARIETTA HERCULES MD, Ot 729.1 MYALGIA AND MYOSITIS NOS 04/05/2018 MARIETTA HERCULES MD, Ot V58.69 OTH MED,LT,CURRENT USE 04/05/2018 KENDALL GOODWIN MD Ot 715.31 LOC OSTEOARTH NOS-SHLDER 04/05/2018 KENDALL GOODWIN MD Ot 726.10 BURSAE TENDONS DIS SHLDER NOS 04/05/2018 KENDALL GOODWIN MD Ot E000.8 OTHER EXTERNAL CAUSE STATUS 04/05/2018 KENDALL GOODWIN MD Ot E849.0 ACCIDENT IN HOME 04/05/2018 KENDALL GOODWIN MD Ot E885.9 FALL FROM SLIPPING, TRIPPING, OR STUMBLI 04/05/2018 JOCELYN ZUNIGA FACC, ALI LACEYP CCDS Ot 401.9 HYPERTENSION NOS 04/05/2018 JOCELYN ZUNIGA FACC, ALI LACEYP CCDS Ot 785.2 CARDIAC MURMURS NEC 04/05/2018 JOCELYN ZUNIGA FACC, ALI FACP CCDS Ot 786.05 SHORTNESS OF BREATH 04/05/2018 JOCELYN ZUNIGA FACC, ALI FACP CCDS Ot 789.03 ABDOMINAL PAIN, RIGHT LOWER QUADRANT 04/05/2018 JOCELYN ZUNIGA FAC, ALI [facility] CCDS Ot 789.30 ABDOMINAL/PELVIC SWELLING,MASS/LUMP UNSP 04/05/2018 JOCELYN ZUNIGA FAC, ALI [facility] CCDS Ot V45.89 POSTSURGICAL STATES NEC 04/05/2018 KENDALL GOODWIN MD Ot 726.2 SHOULDER REGION DIS NEC 04/05/2018 KENDALL GOODWIN MD Ot V28.4 SCREEN- RETARDATION 04/05/2018 KENDALL OGODWIN MD Ot V72.63 PRE-PROCEDURAL LABORATORY EXAMINATION 04/05/2018 KENDALL GOODWIN MD Ot V74.8 SCREEN-BACTERIAL DIS NEC 04/05/2018 HUGO ZUNIGA, CARLOS ALBERTO Boogie Ot 719.7 DIFFICULTY IN WALKING 04/05/2018 CARLOS ALBERTO ARIAS MD Ot 722.52 LUMB/LUMBOSAC DISC DEGEN 04/05/2018 CARLOS ALBERTO ARIAS MD Ot 729.5 PAIN IN LIMB 04/05/2018 CARLOS ALBERTO ARIAS MD Ot 782.1 NONSPECIF SKIN ERUPT NEC 04/05/2018 ELISEO BENDER Ot V76.12 OTH SCREEN MAMMO-MALIGN NEOPLASM OF CHRIS 04/05/2018 JENNA SPECIAL EDUCATION COORDINATOR, CLEMENCIA Daugherty Ot 721.3 LUMBOSACRAL SPONDYLOSIS 04/05/2018 ELISEO BENDERP Ot 724.5 BACKACHE NOS 04/05/2018 ELISEO BENDER Ot V45.4 ARTHRODESIS STATUS 04/05/2018 DANAY OLIVER MOLD CAR PUSHER Ot 785.1 PALPITATIONS 04/05/2018 Ot 721.0 CERVICAL SPONDYLOSIS 04/05/2018 Ot 726.0 ADHESIVE CAPSULIT SHLDER 04/05/2018 ABDI DOFLYNN Ot 496 CHR AIRWAY OBSTRUCT NEC 04/05/2018 FLYNN PATTON DO Ot 727.61 ROTATOR CUFF RUPTURE 04/05/2018 FLYNN PATTON DO Ot 786.05 SHORTNESS OF BREATH 04/05/2018 FLYNN PATTON DO Ot V72.83 EXAM PRE-OPERATIVE NEC 04/05/2018 FLYNN PATTON DO Ot V74.8 SCREEN-BACTERIAL DIS NEC 04/05/2018 ELISEO BENDER Ot Z12.31 ENCNTR SCREEN MAMMOGRAM FOR MALIGNANT NE 04/05/2018 BAIMA, DANAY L MOLD CAR PUSHER Ot I10 ESSENTIAL (PRIMARY) HYPERTENSION 04/05/2018 BAIMA, DANAY L MOLD CAR PUSHER Ot R00.2 PALPITATIONS 04/05/2018 BAIMA, DANAY L MOLD CAR PUSHER Ot R06.00 DYSPNEA, UNSPECIFIED 04/05/2018 BAIMA, DANAY L MOLD CAR PUSHER Ot R07.9 CHEST PAIN, UNSPECIFIED 04/05/2018 BAIMA, DANAY L MOLD CAR PUSHER Ot R60.9 EDEMA, UNSPECIFIED 04/05/2018 BAIMA, DANAY L MOLD CAR PUSHER Ot I10 ESSENTIAL (PRIMARY) HYPERTENSION 04/05/2018 BAIMA, DANAY L MOLD CAR PUSHER Ot R00.2 PALPITATIONS 04/05/2018 BAIMA, DANAY L MOLD CAR PUSHER Ot R06.00 DYSPNEA, UNSPECIFIED 04/05/2018 BAIMA, DANAY L MOLD CAR PUSHER Ot R07.9 CHEST PAIN, UNSPECIFIED 04/05/2018 BAIMA, DANAY L MOLD CAR PUSHER Ot R60.9 EDEMA, UNSPECIFIED 04/05/2018 ELISEO BENDER Ot E04.1 NONTOXIC SINGLE THYROID NODULE 04/05/2018 ZUNIGA, DUSTIN Zaragoza Ot E04.2 NONTOXIC MULTINODULAR GOITER 04/05/2018 ZUNIGA, DUSTIN Zaragoza Ot R13.10 DYSPHAGIA, UNSPECIFIED 04/05/2018 ZUNIGA, DUSTIN Zaragoza Ot Z01.818 ENCOUNTER FOR OTHER PREPROCEDURAL EXAMIN 04/05/2018 ZUNIGA, DUSTIN Zaragoza Ot E05.90 THYROTOXICOSIS, UNSP WITHOUT THYROTOXIC 04/05/2018 ZUNIGA, DUSTIN Zaragoza Ot R53.83 OTHER FATIGUE 04/05/2018 ELISEO BENDERP Ot Z12.31 ENCNTR SCREEN MAMMOGRAM FOR MALIGNANT NE 04/05/2018 ZUNIGA, UDSTIN Zaragoza Ot C73 MALIGNANT NEOPLASM OF THYROID GLAND 04/05/2018 ELISEO BENDER Ot K57.30 DVRTCLOS OF LG INT W/O PERFORATION OR AB 04/05/2018 ELISEO BENDERP Ot K59.00 CONSTIPATION, UNSPECIFIED 04/05/2018 CIERRA ZUNIGA, DORINA Daugherty Ot M06.9 RHEUMATOID ARTHRITIS, UNSPECIFIED 04/05/2018 ZUNIGA, DUSTIN M Ot C73 MALIGNANT NEOPLASM OF THYROID GLAND 04/05/2018 DANAY OLIVER MOLD CAR PUSHER Ot G47.30 SLEEP APNEA, UNSPECIFIED 04/05/2018 DANAY OLIVER MOLD CAR PUSHER Ot I10 ESSENTIAL (PRIMARY) HYPERTENSION 04/05/2018 DANAY OLIVER MOLD CAR PUSHER Ot R00.2 PALPITATIONS 04/05/2018 DANAY OLIVER MOLD CAR PUSHER Ot R06.02 SHORTNESS OF BREATH 04/05/2018 CIERRA ZUNIGA, DORINA Daugherty Ot M06.9 RHEUMATOID ARTHRITIS, UNSPECIFIED 04/05/2018 CIERRA ZUNIGA, DORINA Daugherty Ot M06.9 RHEUMATOID ARTHRITIS, UNSPECIFIED 04/05/2018 CIERRA ZUNIGA, DORINA Daugherty Ot M06.9 RHEUMATOID ARTHRITIS, UNSPECIFIED 04/05/2018 ELISEO BENDER Ot Z12.31 ENCNTR SCREEN MAMMOGRAM FOR MALIGNANT NE 04/05/2018 ELISEO BENDER Ot Z53.8 PROCEDURE AND TREATMENT NOT CARRIED OUT 04/05/2018 ELISEO BENDER Ot N64.52 NIPPLE DISCHARGE 05/04/2018 ELISEO BENDER Ot N64.52 NIPPLE DISCHARGE Procedures Code Description Performed By Performed On 38.93 02/02/2011 96.04 02/02/2011 96.71 02/02/2011 94.62 ALCOHOL DETOXIFICATION 01/01/2012 08042 US CAROTID DOPPLER 07/27/2012 19328 US THYROID ULTRASOUND 09/10/2012 [facility]IA [facility] 11/24/2012 17309 ROUTINE VENIPUNCTURE 01/19/2013 84051 CBC 01/19/2013 16233 LIPID PANEL 01/19/2013 30897 CMP 01/19/2013 5704460 GFR CALC (RESULT ONLY) 01/19/2013 99108 TSH 01/20/2013 Tyrell Harmon 01/21/2013 General S Dustin Dave 01/21/2013 General S Flynn Garcia 02/24/2013 16204 URINE DRUG SCREEN (IN-HOUSE ) 04/19/2013 91700 UA W/ CULTURE IF INDICATED 04/19/2013 42946 CULTURE URINE 04/20/2013 00894 US BREAST ULTRASOUND, RIGHT 06/02/2013 69327 MAMMOGRAM DX, BRITTNEY 06/02/2013 20671 ROUTINE VENIPUNCTURE 06/23/2013 06323 UA W/ CULTURE IF INDICATED 06/23/2013 78829 A1C (IN-HOUSE) 06/23/2013 99762 CMP 06/23/2013 05241 LIPID PANEL 06/23/2013 0503622 GFR CALC (RESULT ONLY) 06/23/2013 35320 TSH 06/23/2013 98079 INSULIN LEVEL 06/23/2013 77582 URINE DRUG SCREEN (IN-HOUSE ) 11/23/2013 60008 ROUTINE VENIPUNCTURE 02/15/2014 54660 BMP 02/15/2014 6204839 GFR CALC (RESULT ONLY) 02/15/2014 19796 TSH 02/15/2014 52037 ROUTINE VENIPUNCTURE 03/21/2014 16099 UA LONG DIP 03/21/2014 69023 CBC 03/21/2014 77872 CMP 03/21/2014 99110 URIC ACID 03/21/2014 6763067 GFR CALC (RESULT ONLY) 03/21/2014 00021 CRP 03/21/2014 54376 XRAY CHEST 2 VIEW 03/22/2014 34259 RA FACTOR 03/22/2014 85260 ASO 03/22/2014 30581 LYME EIA W/WEST BLOT 03/22/2014 ANAANA BIANCA ANALYZER (SCREEN) 03/22/2014 73420 MP MT SPOT FEVER 03/22/2014 56068 EHRLICHIA ANTIBODY 03/23/2014 26146 TULAREMIA ANTIBODY 03/24/2014 57493 ROUTINE VENIPUNCTURE 04/12/2014 54198 MAMMOGRAM DX, BRITTNEY 04/12/2014 44713 SED/ESR RATE (IN HOUSE) 04/12/2014 05719 CCP ANTIBODY 04/15/2014 54978 UA LONG DIP 06/05/2014 94060 SLEEP STUDY ([facility]- SLEEP STUDY) 06/05/2014 22156 XRAY THORACIC SPINE 3 VIEWS 08/17/2014 74180 XRAY LUMBAR SPINE 2 OR 3 VIEWS 08/17/2014 64447 MRI SPINE (LUMBAR) W/O CONTRAST 08/17/2014 60704 MRI SPINE (THORACIC) W/O CONTRAST 08/22/2014 Results Test Result Range Whole blood basic metabolic panel - 07/09/16 09:49 Serum or plasma sodium measurement (moles/volume) 141 mmol/L 135-145 Serum or plasma potassium measurement (moles/volume) 4.1 mmol/L 3.6-5.0 Serum or plasma chloride measurement (moles/volume) 106 mmol/L 98-107 Carbon dioxide 27 mmol/L 21-32 Serum or plasma anion gap determination (moles/volume) 8 mmol/L 5-14 Serum or plasma urea nitrogen measurement (mass/volume) 11 mg/dL 7-18 Serum or plasma creatinine measurement (mass/volume) 0.71 mg/dL 0.60-1.30 Serum or plasma urea nitrogen/creatinine mass ratio 15 NRG Serum or plasma creatinine measurement with calculation of estimated glomerular filtration rate > NRG Serum or plasma glucose measurement (mass/volume) 91 mg/dL 70-105 Serum or plasma calcium measurement (mass/volume) 9.0 mg/dL 8.5-10.1 Methicillin resistant Staphylococcus aureus (MRSA) screening culture - 09:49 Methicillin resistant Staphylococcus aureus (MRSA) screening culture NEG NRG Capillary blood glucose measurement by glucometer (mass/volume) - 07/21/16 21: 11 Capillary blood glucose measurement by glucometer (mass/volume) 164 mg/dL 70-110 Whole blood basic metabolic panel - 07/22/16 05:00 Serum or plasma sodium measurement (moles/volume) 141 mmol/L 135-145 Serum or plasma potassium measurement (moles/volume) 4.0 mmol/L 3.6-5.0 Serum or plasma chloride measurement (moles/volume) 107 mmol/L 98-107 Carbon dioxide 25 mmol/L -32 Serum or plasma anion gap determination (moles/volume) 9 mmol/L 5-14 Serum or plasma urea nitrogen measurement (mass/volume) 10 mg/dL 7-18 Serum or plasma creatinine measurement (mass/volume) 0.68 mg/dL 0.60-1.30 Serum or plasma urea nitrogen/creatinine mass ratio 15 NRG Serum or plasma creatinine measurement with calculation of estimated glomerular filtration rate > NRG Serum or plasma glucose measurement (mass/volume) 105 mg/dL 70-105 Serum or plasma calcium measurement (mass/volume) 8.3 mg/dL 8.5-10.1 THYROID STIMULATING HORMONE - 01/13/17 09:57 THYROID STIMULATING HORMONE 0.02 u[iU]/mL 0.35-4.94 Thyroxine (T4) measurement - 01/13/17 09:57 T4 (thyroxine) 13.0 % 5.5-12.0 CBC With Differential/Platelet - 03/24/17 08:14 WBC 4.9 x10E3/uL 3.4-10.8 RBC 4.33 x10E6/uL 3.77-5.28 Hemoglobin 12.8 g/dL 11.1-15.9 Hematocrit 37.0 % 34.0-46.6 MCV 86 fL 79-97 MCH 29.6 pg 26.6-33.0 MCHC 34.6 g/dL 31.5-35.7 RDW 13.2 % 12.3-15.4 Platelets 246 x10E3/uL 150-379 Neutrophils 65 % Lymphs 24 % Monocytes 9 % Eos 2 % Basos 0 % Neutrophils (Absolute) 3.2 x10E3/uL 1.4-7.0 Lymphs (Absolute) 1.2 x10E3/uL 0.7-3.1 Monocytes(Absolute) 0.5 x10E3/uL 0.1-0.9 Eos (Absolute) 0.1 x10E3/uL 0.0-0.4 Baso (Absolute) 0.0 x10E3/uL 0.0-0.2 Immature Granulocytes 0 % Immature Grans (Abs) 0.0 x10E3/uL 0.0-0.1 Comp. Metabolic Panel (14) - 03/24/17 08:14 Glucose, Serum 94 mg/dL 65-99 BUN 11 mg/dL 6-24 Creatinine, Serum 0.67 mg/dL 0.57-1.00 eGFR If NonAfricn Am 99 mL/min/1.73 >59 eGFR If Africn Am 114 mL/min/1.73 >59 BUN/Creatinine Ratio 16 9-23 Sodium, Serum 147 mmol/L 134-144 Potassium, Serum 4.7 mmol/L 3.5-5.2 Chloride, Serum 104 mmol/L 96-106 Carbon Dioxide, Total 24 mmol/L 18-29 Calcium, Serum 9.3 mg/dL 8.7-10.2 Protein, Total, Serum 6.4 g/dL 6.0-8.5 Albumin, Serum 4.1 g/dL 3.5-5.5 Globulin, Total 2.3 g/dL 1.5-4.5 A/G Ratio 1.8 1.2-2.2 Bilirubin, Total 0.3 mg/dL 0.0-1.2 Alkaline Phosphatase, S 45 IU/L 39-117 AST (SGOT) 21 IU/L 0-40 ALT (SGPT) 17 IU/L 0-32 Lipid Panel - 03/24/17 08:14 Cholesterol, Total 164 mg/dL 100-199 Triglycerides 108 mg/dL 0-149 HDL Cholesterol 68 mg/dL >39 VLDL Cholesterol August 22 mg/dL 5-40 LDL Cholesterol Calc 74 mg/dL 0-99 Insulin - 03/24/17 08:14 Insulin 21.0 uIU/mL 2.6-24.9 C-Reactive Protein, Quant - 03/24/17 08:14 C-Reactive Protein, Quant 2.1 mg/L 0.0-4.9 Complete blood count (CBC) with automated white blood cell (WBC) differential - 07/07/17 10:52 Blood leukocytes automated count (number/volume) 7.2 10*3/uL 4.3-11.0 Blood erythrocytes automated count (number/volume) 4.68 10*6/uL 4.35-5.85 Venous blood hemoglobin measurement (mass/volume) 13.8 g/dL 11.5-16.0 Blood hematocrit (volume fraction) 41 % 35-52 Automated erythrocyte mean corpuscular volume 87 [foz_us] 80-99 Automated erythrocyte mean corpuscular hemoglobin (mass per erythrocyte) 30 pg 25-34 Automated erythrocyte mean corpuscular hemoglobin concentration measurement ( mass/volume) 34 g/dL 32-36 Automated erythrocyte distribution width ratio 13.1 % 10.0-14.5 Automated blood platelet count (count/volume) 276 10*3/uL 130-400 Automated blood platelet mean volume measurement 10.8 [foz_us] 7.4-10.4 Automated blood neutrophils/100 leukocytes 66 % 42-75 Automated blood lymphocytes/100 leukocytes 22 % 12-44 Blood monocytes/100 leukocytes 10 % 0-12 Automated blood eosinophils/100 leukocytes 2 % 0-10 Automated blood basophils/100 leukocytes 0 % 0-10 Blood neutrophils automated count (number/volume) 4.8 10*3 1.8-7.8 Blood lymphocytes automated count (number/volume) 1.6 10*3 1.0-4.0 Blood monocytes automated count (number/volume) 0.7 10*3 0.0-1.0 Automated eosinophil count 0.1 10*3/uL 0.0-0.3 Automated blood basophil count (count/volume) 0.0 10*3/uL 0.0-0.1 Comprehensive metabolic panel - 07/07/17 10:52 Serum or plasma sodium measurement (moles/volume) 142 mmol/L 135-145 Serum or plasma potassium measurement (moles/volume) 4.0 mmol/L 3.6-5.0 Serum or plasma chloride measurement (moles/volume) 103 mmol/L 98-107 Carbon dioxide 27 mmol/L 21-32 Serum or plasma anion gap determination (moles/volume) 12 mmol/L 5-14 Serum or plasma urea nitrogen measurement (mass/volume) 11 mg/dL 7-18 Serum or plasma creatinine measurement (mass/volume) 0.77 mg/dL 0.60-1.30 Serum or plasma urea nitrogen/creatinine mass ratio 14 NRG Serum or plasma creatinine measurement with calculation of estimated glomerular filtration rate > NRG Serum or plasma glucose measurement (mass/volume) 87 mg/dL 70-105 Serum or plasma calcium measurement (mass/volume) 9.4 mg/dL 8.5-10.1 Serum or plasma total bilirubin measurement (mass/volume) 0.6 mg/dL 0.1-1.0 Serum or plasma alkaline phosphatase measurement (enzymatic activity/volume) 51 U/L 40-136 Serum or plasma aspartate aminotransferase measurement (enzymatic activity/ volume) 27 U/L 5-34 Serum or plasma alanine aminotransferase measurement (enzymatic activity/volume ) 21 U/L 0-55 Serum or plasma protein measurement (mass/volume) 7.4 g/dL 6.4-8.2 Serum or plasma albumin measurement (mass/volume) 4.3 g/dL 3.2-4.5 Serum or plasma C reactive protein measurement (mass/volume) - 07/07/17 10:52 Serum or plasma C reactive protein measurement (mass/volume) 0.37 mg /dL 0.00-0.50 THYROID STIMULATING HORMONE - 07/07/17 10:52 THYROID STIMULATING HORMONE 0.01 u[iU]/mL 0.35-4.94 Serum or plasma thyroxine (T4) free measurement (mass/volume) - 07/07/17 10:52 Serum or plasma thyroxine (T4) free measurement (mass/volume) 1.63 ng/dL 0.70-1.48 Body fluid hepatitis B virus surface antigen detection - 07/07/17 10:52 Confirmatory quantitative serum or plasma hepatitis B virus surface antigen measurement Non-Reactive Non-Reactive Serum hepatitis C virus antibody assay (units/volume) - 07/07/17 10:52 Serum hepatitis C virus antibody detection Non-Reactive Non-Reactive QUANTIFERON-TB GOLD - 07/07/17 10:52 QuantiFERON-TB test Negative Negative Mitogen stimulated gamma interferon [units/volume] corrected for background in blood 0.02 [iU]/mL 0.00-7.99 Mitogen stimulated gamma interferon [units/volume] in blood > [iU]/ mL 0.50-10.00 Qualitative QuantiFERON-TB gold in tube test <0.00 0.00- 0.34 CULTURE, URINE - 07/22/17 11:13 CULTURE, URINE, ROUTINE SEE NOTE NRG Automated blood complete blood count (hemogram) panel - 10/29/17 09:30 Blood leukocytes automated count (number/volume) 7.3 10*3/uL 4.3-11.0 Blood erythrocytes automated count (number/volume) 4.46 10*6/uL 4.35-5.85 Venous blood hemoglobin measurement (mass/volume) 13.7 g/dL 11.5-16.0 Blood hematocrit (volume fraction) 40 % 35-52 Automated erythrocyte mean corpuscular volume 90 [foz_us] 80-99 Automated erythrocyte mean corpuscular hemoglobin (mass per erythrocyte) 31 pg 25-34 Automated erythrocyte mean corpuscular hemoglobin concentration measurement ( mass/volume) 34 g/dL 32-36 Automated erythrocyte distribution width ratio 13.4 % 10.0-14.5 Automated blood platelet count (count/volume) 309 10*3/uL 130-400 Automated blood platelet mean volume measurement 10.2 [foz_us] 7.4-10.4 Serum or plasma creatinine measurement with calculation of estimated glomerular filtration rate - 10/29/17 09:30 Serum or plasma creatinine measurement (mass/volume) 0.76 mg/dL 0.60-1.30 Serum or plasma creatinine measurement with calculation of estimated glomerular filtration rate > NRG Serum or plasma aspartate aminotransferase measurement (enzymatic activity/ volume) - 10/29/17 09:30 Serum or plasma aspartate aminotransferase measurement (enzymatic activity/ volume) 25 U/L 5-34 Serum or plasma C reactive protein measurement (mass/volume) - 10/29/17 09:30 Serum or plasma C reactive protein measurement (mass/volume) 0.38 mg /dL 0.00-0.50 GLUCOSE, SERUM - 01/26/18 08:23 GLUCOSE 94 mg/dL 65-99 Capillary blood glucose measurement by glucometer (mass/volume) - 06/07/18 11: 21 Capillary blood glucose measurement by glucometer (mass/volume) 124 mg/dL 70-110 Encounters ACCT No. Visit Date/Time Discharge Status Pt. Type Provider Facility Loc./Unit Complaint [id number] 11/16/2014 11:08:00 11/16/2014 23:59:59 CLS Outpatient YULIA [employer] ADVISOR, ELISEO S [id number] 08/17/2014 11:27:00 08/17/2014 23:59:59 CLS Outpatient YULIA [employer] ADVISOR, ELISEO S [id number] 08/17/2014 11:27:00 08/17/2014 23:59:59 CLS Outpatient YULIA [employer] ADVISOR, ELISEO S [id number] 06/05/2014 12:36:00 06/05/2014 23:59:59 CLS Outpatient YULIA [employer] ADVISOR, ELISEO S [id number] 06/05/2014 12:36:00 06/05/2014 23:59:59 CLS Outpatient YULIA [employer] ADVISOR, ELISEO S [id number] 04/12/2014 14:21:00 04/12/2014 23:59:59 CLS Outpatient YULIA [employer] ADVISOR, ELISEO S [id number] 03/21/2014 11:23:00 03/21/2014 23:59:59 CLS Outpatient MOE BORJAS MD [id number] 03/21/2014 11:23:00 03/21/2014 23:59:59 CLS Outpatient MOE BORJAS MD [id number] 02/15/2014 11:07:00 02/15/2014 23:59:59 CLS Outpatient YULIA [employer] ADVISOR, ELISEO S [id number] 02/07/2014 13:37:00 02/07/2014 23:59:59 CLS Outpatient YULIAPATRICK NGUYEN ELISEO S [id number] 11/23/2013 15:26:00 11/23/2013 23:59:59 CLS Outpatient YULIAPATRICK NGUYEN ELISEO S [id number] 11/23/2013 15:26:00 11/23/2013 23:59:59 CLS Outpatient YULIA MEMBERSHIP ADVISORLAVINIAELISEO S [id number] 09/06/2013 00:00:00 09/06/2013 23:59:59 CLS Outpatient CASTRO POWELL DO [id number] 09/05/2013 09:58:00 09/05/2013 23:59:59 CLS Outpatient CASTRO POWELL DO [id number] 06/23/2013 12:01:00 06/23/2013 23:59:59 CLS Outpatient YULIA MEMBERSHIP ADVISORLAVINIAELISEO S [id number] 04/19/2013 13:32:00 04/19/2013 23:59:59 CLS Outpatient YULIA [employer]BERSHIP ADVISORLAVINIAELISEO S [id number] 11/23/2012 11:38:00 11/23/2012 23:59:59 CLS Outpatient YULIA MEMBERSHIP ADVISORLAVINIAELISEO S [id number] 11/04/2012 17:12:00 11/04/2012 23:59:59 CLS Outpatient YULIA MEMBERSHIP ADVISORLAVINIAELISEO S [id number] 10/04/2012 14:38:00 10/04/2012 23:59:59 CLS Outpatient YULIA [employer] ADVISOR, ELISEO S [id number] 09/09/2012 11:21:00 09/09/2012 23:59:59 CLS Outpatient MOE BORJAS MD [id number] 07/27/2012 15:53:00 07/27/2012 23:59:59 CLS Outpatient YULIA MEMBERSHIP ADVISORLAVINIAELISEO S [id number] 03/24/2012 13:15:00 03/24/2012 23:59:59 CLS Outpatient YULIA [employer] ADVISOR ELISEO S [id number] 04/19/2013 13:32:00 Document Registration [id number] 04/07/2013 10:09:00 Document Registration [id number] 03/14/2013 14:37:00 Document Registration [id number] 03/04/2013 10:21:00 Document Registration [id number] 01/19/2013 14:02:00 Document Registration [id number] 03/08/2018 10:40:00 03/08/2018 23:59:59 CLS Outpatient YULIA [employer] ADVISOR, ELISEO S [facility] [id number] 01/26/2018 09:00:00 Document Registration [id number] 07/22/2017 10:55:00 Document Registration [id number] 03/20/2015 08:34:31 ACT Document Registration [id number] 03/29/2018 14:15:00 03/29/2018 23:59:59 CLS Outpatient YULIA ELISEO MOLD CAR PUSHER [facility] RAD DISCHARGE FROM NIPPLE [id number] 03/23/2018 09:37:00 03/23/2018 23:59:59 CLS Outpatient ELISEO BENDERP [facility] RAD SCREENING [id number] 01/26/2018 11:35:00 01/26/2018 23:59:59 CLS Outpatient DORINA NORTON MD [facility] LAB M06.9 [id number] 11/09/2017 10:47:00 11/09/2017 23:59:59 CLS Outpatient DORINA NORTON MD [facility] CARD M06.9 ARTHRITIS, RHEUMATOID [id number] 10/29/2017 09:17:00 10/29/2017 23:59:59 CLS Outpatient DORINA NORTON MD [facility] LAB M06.9 [id number] 10/20/2017 10:08:00 10/20/2017 11:36:00 DIS Emergency SHAQ CARLISLE MD [facility] ER FALL ON ICE-LOWER BACK PAIN [id number] 07/27/2017 10:15:00 07/27/2017 23:59:59 CLS Outpatient DANAY OLIVER M[employer] P[employer] [facility] CARD R00.2 PALPITATIONS [id number] 07/07/2017 10:21:00 07/07/2017 23:59:59 CLS Outpatient DUSTIN DAVE MD [facility] LAB PAPILLARY THYROID CARCINOMA [id number] 07/07/2017 10:08:00 07/07/2017 23:59:59 CLS Outpatient DORINA NORTON MD [facility] LAB M06.9 [id number] 03/20/2017 13:53:00 03/20/2017 23:59:59 CLS Preadmit JATINDER BRANTLEY [employer] ADVISOR [facility] RAD LT SHOULDER PAIN W/ RADICULOPATHY [id number] 03/13/2017 12:49:00 03/13/2017 23:59:59 CLS Outpatient ELISEO BENDER [facility] RAD RT FLANK PAIN [id number] 01/13/2017 09:45:00 01/13/2017 23:59:59 CLS Outpatient DUSTIN DAVE MD [facility] LAB THYROID CANCER [id number] 01/13/2017 09:41:00 01/13/2017 23:59:59 CLS Outpatient ELISEO BENDER [facility] RAD SCREENING [id number] 10/28/2016 10:47:00 10/28/2016 23:59:59 CLS Outpatient DUSTIN DAVE MD [facility] LAB HYPERTHYROIDISM, FATIGUE [id number] 09/22/2016 12:28:00 09/22/2016 15:00:00 DIS Outpatient DUSTIN DAVE MD [facility] DYSPHAGIA [id number] 09/18/2016 05:51:00 09/18/2016 14:38:00 DIS Outpatient DUSTIN DAVE MD [facility] PREOP DYSPHAGIA [id number] 08/21/2016 08:20:00 08/21/2016 23:59:59 CLS Outpatient DUSTIN DAVE MD [facility] PREOP DYSPHAGIA [id number] 07/21/2016 12:03:00 07/22/2016 10:08:00 DIS Outpatient DUSTIN DAVE MD [facility] THYROID NODULES [id number] 07/09/2016 09:14:00 07/09/2016 11:34:00 DIS Outpatient DUSTIN DAVE MD [facility] PREOP THYROID NODULES [id number] 05/08/2016 07:38:00 05/08/2016 10:33:00 DIS Outpatient DUSTIN DAVE MD [facility] IRREGULAR BOWEL; CONSTIPATION;FAMILY HISTORY [id number] 05/06/2016 12:18:00 05/06/2016 23:59:59 CLS Outpatient DUSTIN DAVE MD [facility] RAD MULTINODULAR GOITER [id number] 05/01/2016 06:06:00 05/01/2016 12:39:00 DIS Outpatient SUNDAY ZUNIGA, DUSTIN Zaragoza [facility] PREOP IRREGULAR BOWEL; CONSTIPATION; FAMILY HISTORY [id number] 04/18/2016 10:30:00 04/18/2016 23:59:59 CLS Outpatient ELISEO BENDER [facility] RAD THYROID NODULE [id number] 02/21/2016 09:44:00 02/21/2016 23:59:59 CLS Outpatient DANAY OLIVER MOLD [employer] PUSHER [facility] CARD CHEST PAIN, PALPITATIONS [id number] 01/15/2016 07:40:00 01/15/2016 23:59:59 CLS Outpatient DANAY OLIVER MOLD [employer] PUSHER [facility] CARD CHEST PAIN, PALPITATIONS [id number] 09/18/2015 10:29:00 09/18/2015 23:59:59 CLS Outpatient ELISEO BENDER [facility] RAD SCREENING [id number] 03/20/2015 08:34:00 04/10/2015 16:12:00 DIS Outpatient FLYNN PATTON DO [facility] REHAB S/P BICEP TENOTOMY AND ROTATOR CUFF REPAIR [id number] 12/26/2014 09:58:00 12/26/2014 17:05:00 DIS Outpatient FLYNN PATTON DO [facility] RIGHT SHOULDER TORN ROTATOR CUFF [id number] 12/19/2014 11:36:00 12/19/2014 23:59:59 CLS Outpatient FLYNN PATTON DO [facility] PREOP RIGHT SHOULDER TORN ROTATOR CUFF [id number] 10/19/2014 08:15:00 10/19/2014 09:30:00 DIS Outpatient MARIETTA HERCULES MD [facility] REHAB THORACALGIA [id number] 08/30/2014 09:00:00 08/30/2014 23:59:59 CLS Preadmit DANAY OLIVER MOLD [employer] PUSHER [facility] CARD PALPITATIONS,SOB,HTN [id number] 05/31/2014 12:56:00 08/29/2014 00:01:00 DIS Outpatient BAICHALINO, DANAY Keagan MOLD [employer] PUSHER [facility] CARD PALPITATIONS,SOB, HTN [id number] 08/22/2014 08:49:00 08/22/2014 23:59:59 CLS Outpatient YULIAELISEOP [facility] RAD BACK PAIN, RADIATING [id number] 05/31/2014 08:45:00 05/31/2014 23:59:59 CLS Outpatient ELISEO BENDERP [facility] RAD ROUTINE [id number] 05/23/2014 14:27:00 05/23/2014 23:59:59 CLS Outpatient CLEMENCIA WEST NP [facility] RAD LUMBARSACRIAL SPONDOLOYSIS [id number] 12/29/2013 10:03:00 12/29/2013 23:59:59 CLS Outpatient CARLOS ALBERTO ARIAS MD [facility] RAD BACK AND LEG PAIN [id number] 12/12/2013 07:58:00 12/12/2013 14:15:00 DIS Outpatient KENDALL GOODWIN MD [facility] SDC RIGHT SHOULDER IMPINGEMENT W/AC JOINT ARTHRITIS [id number] 12/08/2013 08:13:00 12/08/2013 23:59:59 CLS Outpatient KENDALL GOODWIN MD [facility] PREOP RIGHT SHOULDER IMPINGEMENT W/AC JOINT ARTHRITIS [id number] 11/15/2013 08:52:00 11/15/2013 23:59:59 CLS Outpatient KEIRA BANKS MD, FACC, FACP CCDS [facility] RAD RT GROIN PAIN AND SWELLING, POST CATH [id number] 11/11/2013 09:04:00 11/11/2013 23:59:59 CLS Outpatient KEIRA BANKS MD, FACC, FACP CCDS [facility] CARD SOB,HTN, MURMUR [id number] 11/08/2013 12:30:00 11/08/2013 20:40:00 DIS Outpatient KEIRA BANKS MD, FACC FACP CCDS [facility] CATH CP,SOB,HTN [id number] 10/28/2013 14:28:00 10/28/2013 23:59:59 CLS Outpatient KENDALL GOODWIN MD [facility] RAD RT SHOULDER PAIN [id number] 08/22/2013 12:15:00 08/22/2013 23:59:59 CLS Outpatient MARIETTA HERCULES MD [facility] CARD DDD-LUMBAR [id number] 07/29/2013 09:13:00 07/29/2013 23:59:59 CLS Outpatient MARIETTA HERCULES MD [facility] CARD DDD LUMBAR [id number] 06/02/2013 08:12:00 06/02/2013 23:59:59 CLS Outpatient CHARLES MARTINES [employer] ADVISOR [facility] RAD PALPABLE MASS RT BREAST [id number] 04/14/2013 14:07:00 04/14/2013 23:59:59 CLS Outpatient CHARLES MARTINES [employer] ADVISOR [facility] RAD ENLARGED UTERUS, PALPABLE MASS IN RT BREAST [id number] 04/14/2013 14:43:00 04/14/2013 15:25:00 DIS Emergency DAVID HOLLINGSWORTH MD [facility] ER BACK PAIN [id number] 03/28/2013 09:52:00 03/28/2013 23:59:59 CLS Outpatient DUSTIN DAVE MD [facility] SDC SCREENING; FAMILY HX COLON CANCER [id number] 03/25/2013 19:26:00 03/25/2013 20:12:00 DIS Emergency ROJELIO RUTLEDGE MD [facility] ER HIP PAIN [id number] 03/24/2013 07:19:00 03/24/2013 23:59:59 CLS Outpatient DUSTIN DAVE MD [facility] PREOP SCREENING; FAMILY HX COLON CANCER [id number] 02/15/2013 08:56:00 02/25/2013 14:20:00 DIS Outpatient ELISEO BENDER [facility] REHAB BACK PAIN [id number] 02/22/2013 18:46:00 02/22/2013 19:37:00 DIS Emergency KE FORD DO [facility] ER BACK PAIN [id number] 06/07/2018 11:28:00 Document Registration [id number] 10/30/2014 10:33:00 Document Registration [id number] 09/29/2014 10:36:00 Document Registration [id number] 09/29/2014 10:36:00 Document Registration [id number] 09/29/2014 10:35:00 Document Registration [id number] 09/29/2014 10:35:00 Document Registration [id number] 09/29/2014 10:35:00 Document Registration [id number] 11/21/2012 20:11:00 Document Registration [id number] 09/28/2012 15:07:00 Document Registration [id number] 08/05/2012 12:40:00 Document Registration [id number] 06/15/2012 20:22:00 Document Registration [id number] 06/03/2012 17:35:00 Document Registration [id number] 06/01/2012 13:23:00 Document Registration [id number] 05/02/2012 17:33:00 Document Registration [id number] 01/01/2012 22:45:00 Document Registration [id number] 12/31/2011 22:36:00 Document Registration [id number] 12/25/2011 09:24:00 Document Registration [id number] 12/15/2011 21:34:00 Document Registration [id number] 12/15/2011 19:39:00 Document Registration [id number] 10/30/2011 14:02:00 Document Registration [id number] 09/09/2011 09:03:00 Document Registration [id number] 06/30/2011 09:50:00 Document Registration [id number] 04/07/2011 00:36:00 Document Registration [id number] 02/02/2011 09:00:00 Document Registration [id number] 2011 00:30:00 Document Registration [id number] 01/03/2011 09:37:00 Document Registration [id number] 12/13/2010 06:36:00 Document Registration [id number] 12/03/2010 02:24:00 Document Registration [id number] 12/02/2010 04:06:00 Document Registration [id number] 11/26/2010 23:41:00 Document Registration [id number] 11/26/2010 04:25:00 Document Registration [id number] 11/24/2010 02:37:00 Document Registration [id number] 11/23/2010 00:30:00 Document Registration [id number] 11/21/2010 00:45:00 Document Registration [id number] 11/19/2010 23:06:00 Document Registration [id number] 09/19/2010 22:19:00 Document Registration [id number] 08/31/2010 21:27:00 Document Registration [id number] 06/10/2010 22:28:00 Document Registration [id number] 06/09/2010 21:43:00 Document Registration [id number] 06/08/2010 18:57:00 Document Registration [id number] 05/29/2010 11:19:00 Document Registration [id number] 05/28/2010 11:25:00 Document Registration [id number] 05/10/2010 23:40:00 Document Registration [id number] 03/26/2010 19:58:00 Document Registration [id number] 03/26/2010 09:22:00 Document Registration [id number] 03/24/2010 22:12:00 Document Registration [id number] 03/24/2010 01:57:00 Document Registration [id number] 03/06/2010 04:57:00 Document Registration [id number] 03/03/2010 00:12:00 Document Registration [id number] 03/25/2017 13:05:00 Document Registration
--- NOTE | 2018-06-07 13:47 | Progress Note-Pre Operative ---
Pre-Operative Progress Note H&P Reviewed The H&P was reviewed, patient examined and no changes noted. Date Seen by Provider: May 31, 2018 Time Seen by Provider: 15:00 Date H&P Reviewed: Jun 07, 2018 Time H&P Reviewed: 13:47 Pre-Operative Diagnosis: bleeding from the right nipple JHONY BRAND MD Jun 07, 2018 13:47
[2018-06-07] MEDS ORDERED: SEVOFLURANE (ULTANE) 15 ML INHAL SOLN ONE (14:41)
--- NOTE | 2018-06-07 15:04 | Operative Report ---
Operative Report Date of Procedure/Surgery Jun 07, 2018 Surgeon (s) JHONY BRAND MD Seat Nailer (s): Margaux Shah (Med Student III) Post-Operative Diagnosis same Procedure Performed excision of right breast ducts Description of Procedure Anesthesia Type: General Estimated blood loss (mL): minimal Specimen(s) collected/removed right breast duct tissue Description of the Procedure Indication for the procedure: This lady reported bleeding from the right nipple and has a significant family history of breast carcinoma. Despite the lack of radiologic abnormalities, it was felt reasonable to excise the offending breast ducts to establish a definitive diagnosis, especially with reference to a duct papilloma, that could be the culprit. Informed consent was obtained after reviewing the details of the operation and complications of postoperative hematoma, wound infection and distortion of the nipple. Description of procedure: she was placed supine on the operative table and general anesthesia induced. Due to allergy to penicillin and cephalosporins, a gram of vancomycin was administered intravenously as prophylaxis against wound infection. Sequential compression devices were placed around her legs, to minimize the risk of venous thrombosis. Right breast was prepared and draped in the usual sterile manner. Preemptive analgesia was established using 0.5 percent Marcaine with epinephrine. A radial incision about 4 cm in length was made along the lateral aspect of the right breast and the breast ducts including some normal tissue where excised. Tissue was oriented with silk sutures and sent for histologic examination. Hemostasis was secured using cautery and the cavity irrigated with saline. The incision was then closed using 3-0 Vicryl for the dermal layer and 4-0 Vicryl for skin, in a subcuticular fashion. She tolerated the procedure well, was extubated in the operating room and taken to the recovery room in a stable condition. Findings of the Procedure see op report Allergies and Home Medications Allergies Coded Allergies: Penicillins (Verified Allergy, Severe, CARDIAC ARREST, 06/03/18) yeast, dried (Unverified Allergy, Mild, 06/03/18) Home Medications Alprazolam 0.25 Mg Tablet, 0.25 MG PO BID, (Reported) Bumetanide 2 Mg Tablet, 1 MG PO BID, (Reported) take 1/2 of 2mg tab Calcium Carb & Citrate/Vit D3 1 Each Tablet.er, 4 EACH PO BID, (Reported) Citalopram Hydrobromide 40 Mg Tablet, 40 MG PO DAILY, (Reported) Folic Acid 1 Mg Tablet, 1 MG PO DAILY, (Reported) Gabapentin 300 Mg Capsule, 300 MG PO TID, (Reported) Gelatin 650 Mg Capsule, 1,300 MG PO DAILY, (Reported) Ibuprofen 800 Mg Tablet, 800 MG PO BID, (Reported) Levothyroxine Sodium 150 Mcg Tablet, 150 MCG PO DAILY, (Reported) Lisinopril 20 Mg Tablet, 20 MG PO DAILY, (Reported) Metformin HCl 500 Mg Tablet, 500 MG PO BID, (Reported) Methotrexate Tablet 2.5 Mg Tablet, Unknown Dose PO WEEK, (Reported) Multivitamin/Iron/Folic Acid 1 Each Tablet, 1 EACH PO DAILY, (Reported) Omeprazole 20 Mg Capsule.dr, 20 MG PO BID, (Reported) Potassium Chloride 20 Meq Tab.er.prt, 20 MEQ PO BID, (Reported) Tramadol HCl 50 Mg Tablet, 100 MG PO TID, (Reported) Patient Home Medication List Home Medication List Reviewed: Yes JHONY BRAND MD Jun 07, 2018 15:04
[2018-06-07] MEDS ORDERED: ACHD5005 PO (15:06)
--- NOTE | 2018-06-07 15:06 | Discharge Inst-Simple/Standard ---
Discharge Inst-Standard Discharge Medications New, Converted or Re-Newed RX: RX on Chart Patient Instructions/Follow Up Plan of Care/Instructions/FU: dressings off in 48 hours. Follow-up in 2 weeks. Activity as Tolerated: Yes Discharge Diet: No Restrictions JHONY BRAND MD Jun 07, 2018 15:06
[2018-06-07] MEDS ORDERED: fentaNYL INJECTION 100 MCG/2 ML AMP IVP ONE (15:15)
[2018-06-07] MEDS ORDERED: MEPERIDINE (DEMEROL) INJ 50 MG/ML IVP ONE (15:15)
[2018-06-07] MEDS ORDERED: ONDANSETRON 4 MG/2 ML (SDV) Z0FRAN IVP PRN (15:15)
[2018-06-07] MEDS ORDERED: HYDROmorphone 2 MG/ML VIAL (DILAUDID) IV ONE (15:15)
[2018-06-07 16:05] VITALS: BP 131/78
[2018-06-07 16:40] VITALS: BP 136/74
[2018-06-07 16:45] VITALS: BP 136/74
== END 2018-06-07 16:47 | disposition home or self-care (01) ==
LOC: SDC 10:53
PROVIDERS: ATTEND Surgery
DX: N60.91 Unspecified benign mammary dysplasia of right breast (principal); Z80.3 Family history of malignant neoplasm of breast; Z11.2 Encounter for screening for other bacterial diseases; E11.9 Type 2 diabetes mellitus without complications; I11.0 Hypertensive heart disease with heart failure; I50.9 Heart failure, unspecified; J44.9 Chronic obstructive pulmonary disease, unspecified; G43.909 Migraine, unspecified, not intractable, without status migrainosus; F32.9 Major depressive disorder, single episode, unspecified; F41.9 Anxiety disorder, unspecified; M06.9 Rheumatoid arthritis, unspecified; K21.9 Gastro-esophageal reflux disease without esophagitis; Z85.828 Personal history of other malignant neoplasm of skin; Z85.850 Personal history of malignant neoplasm of thyroid; Z98.1 Arthrodesis status; Z79.899 Other long term (current) drug therapy; Z79.84 Long term (current) use of oral hypoglycemic drugs
CPT/HCPCS: 82962; 87081; 88305

== ENCOUNTER → 2018-08-16 | Outpatient (CLI) | payer MEDICARE ==
[~2018-08-16] MED LIST changes: +GADOBUTROL 10 MMOL/10 ML (GADAVIST) VIAL IV ONE
[2018-08-16 12:25] LABS: BUN/CREATININE RATIO 13; CREATININE SERUM 0.78 MG/DL (0.60-1.30); GFR ESTIMATED > 60
--- NOTE | 2018-08-16 13:57 | Diagnostic Imaging Report ---
PROCEDURE: MRI left upper extremity with and without contrast. TECHNIQUE: Multiplanar, multisequence pre and post contrast-enhanced MRI of the left upper extremity was accomplished. INDICATION: Thumb pain. Thumb lump. FINDINGS: There are no prior studies available for comparison. By history the patient has a painful palpable abnormality along the volar aspect of the thumb at the level of the interphalangeal joint. A marker was placed over the area of concern. On the T2 axial series, there is a 3.6 x 3.3 cm rounded area of increased signal in this region. This lesion has a generally benign appearance but shows fairly intense enhancement with contrast. This is contiguous with the tendon in this area but does not clearly involve the tendon. There is no other soft tissue abnormality noted. The osseous structures are unremarkable. IMPRESSION: 1. There is a small 3.3 x 3.6 cm fairly well-defined enhancing mass in the region of the patient's palpable abnormality. This does not have an aggressive appearance but this does seem to be solid. 2. There is no acute abnormality noted otherwise. Dictated by: Dictated on workstation # [id number]
== END ==
LOC: RAD 11:52
PROVIDERS: ATTEND Emergency Medicine
DX: M79.89 Other specified soft tissue disorders (principal); M79.645 Pain in left finger(s)
CPT/HCPCS: 36415; 73220; 82565; 84520

== ENCOUNTER → 2018-10-26 | Outpatient (CLI) | payer MEDICARE ==
--- NOTE | 2018-10-26 14:28 | Diagnostic Imaging Report ---
INDICATION: Screening for osteoporosis. COMPARISON: None. COMPARISON: There are no prior studies available for comparison. FINDINGS: The bone mineral density of the hips and spine was measured. The T-score for the spine is 1.8. The total T-score for the left hip is 0.6 and for the right hip 0.5. The T-score for the right femoral neck is 0.1 and for the left femoral neck 0.0. All of these values are within normal limits. AP Spine L1-L4: [BMD (g/cm2): 1.415] [T-Score: 1.8] [Z-Score: 1.9] [BMD Previous: N/A] [BMD % Change: N/A] LT Hip Neck: [BMD (g/cm2): 1.034] [T-Score: 0.0] [Z-Score: 0.5] LT Hip Total: [BMD (g/cm2):1.078] [T-Score:0.6] [Z-Score: 0.7] [BMD Previous: N/A] [BMD % Change: N/A] RT Hip Neck: [BMD (g/cm2):1.046] [T-Score:0.1] [Z-Score:0.6] RT Hip Total: [BMD (g/cm2):1.075] [T-score:0.5] [Z-Score:0.7] [BMD Previous:N/A] [BMD % Change:N/A] *Indicates significant change from prior examination based on 95% confidence level. World Health Organization criteria for BMD interpretation classify patients as Normal (T-score at or above -1.0), Osteopenic (T-score between -1.0 and -2.5) or Osteoporotic (T-score at or below -2.5). LIMITATIONS AND MODIFICATION: None. FRACTURE RISK (FRAX SCORE): The ten year probability of (%): Major Osteoporotic Fracture: [N/A] Hip Fracture: [N/A] IMPRESSION: 1. The bone mineral density of the hips and spine is within normal limits. 2. See below National Osteoporosis Foundation guidelines on when to potentially initiate pharmacologic therapy. Based on the National Osteoporosis Foundation Guidelines, pharmacologic treatment should be initiated in any of the following, unless clinical conditions suggest otherwise: * Any patient with prior fragility fracture of the hip or vertebrae. A spine fracture indicates 5X risk for subsequent spine fracture and 2X risk for subsequent hip fracture. * Osteoporosis (T-score <-2.5). * Postmenopausal women and men age 50 and older with low bone mass/osteopenia (T-score between -1.0 and -2.5) by DXA and 10-year major osteoporotic fracture greater than 20% or a 10-year probability of hip fracture greater than 3%. These fracture risks are supplied above in the FRAX score, if applicable. * Clinician judgement and/or patient preferences may indicate treatment for people with 10-year fracture probabilities above or below these levels. Dictated by: Dictated on workstation # [id number]
== END ==
LOC: RAD 10:54
PROVIDERS: ATTEND Nurse Practitioner Community Health
DX: Z13.820 Encounter for screening for osteoporosis (principal); Z78.0 Asymptomatic menopausal state
CPT/HCPCS: 77080

== ENCOUNTER → 2019-04-26 | Outpatient (CLI) | payer MEDICARE ==
[~2019-04-26] MED LIST changes: -BUME2TAB3 PO; +BUME2TAB7 PO; -GADOBUTROL 10 MMOL/10 ML (GADAVIST) VIAL IV ONE; -OMEP20CA12 PO; +OMEP20CA13 PO
--- NOTE | 2019-04-26 19:23 | Diagnostic Imaging Report ---
INDICATION: Routine screening. Comparison is made with prior mammogram from 04/12/2018 and 01/13/2017. 2-D and 3-D bilateral screening mammography was performed with CAD. The current study was also evaluated with a Computer Aided Detection (CAD) system. 3-D tomosynthesis was also performed and reviewed. Scattered fibroglandular densities are identified bilaterally. Benign parenchymal and vascular calcifications are identified bilaterally. No dominant mass or malignant appearing microcalcifications are seen. The axillae are unremarkable. IMPRESSION: No mammographic features suspicious for malignancy are identified. ACR BI-RADS Category 2: Benign findings. Result letter will be mailed to the patient. Note: At least 10% of breast cancer is not imaged by mammography. Dictated by: Dictated on workstation # [id number]
== END ==
LOC: RAD 08:04
PROVIDERS: ATTEND Nurse Practitioner Community Health
DX: Z12.31 Encounter for screening mammogram for malignant neoplasm of breast (principal)
CPT/HCPCS: 77067

== ENCOUNTER → 2019-06-29 | Outpatient (CLI) | payer MEDICARE ==
[~2019-06-29] MED LIST changes: +GADOBUTROL 10 MMOL/10 ML (GADAVIST) VIAL IV ONE
--- NOTE | 2019-06-29 13:31 | Diagnostic Imaging Report ---
PROCEDURE: MR imaging of the brain with and without contrast. TECHNIQUE: Multiplanar, multisequence MR imaging of the brain was performed with and without contrast. INDICATION: Headaches. Blurry vision. Lump on the back of the head in the midline. COMPARISON: CT head on 06/03/2012. FINDINGS: No acute ischemia, mass, or hemorrhage. No abnormal enhancement is seen. The ventricles, cortical sulci, and basilar cisterns are symmetric and unremarkable. The sellar and suprasellar regions have a normal appearance. The brainstem and posterior fossa are unremarkable. The paranasal sinuses and mastoid air cells demonstrate normal signal characteristics. The globes and orbits are symmetric and unremarkable. The calvarium has a normal appearance. A lipoma is visualized adjacent to the occipital bone in the midline measuring 1.7 x 0.5 cm. IMPRESSION: 1. No acute ischemia, mass, or hemorrhage. No abnormal enhancement is seen. 2. Benign lipoma directly adjacent to the occipital bone in the midline, corresponding to the patient's history of palpable lump on the head. Dictated by: Dictated on workstation # [id number]
== END ==
LOC: RAD 12:18
PROVIDERS: ATTEND Nurse Practitioner Community Health
DX: D17.0 Benign lipomatous neoplasm of skin and subcutaneous tissue of head, face and neck (principal); H53.8 Other visual disturbances; R51 Headache
CPT/HCPCS: 70553

== ENCOUNTER → 2019-10-31 | Outpatient (CLI) | payer MEDICARE ==
[~2019-10-31] MED LIST changes: -GADOBUTROL 10 MMOL/10 ML (GADAVIST) VIAL IV ONE; -OMEP20CA13 PO; +OMEP20CA18 PO
== END ==
LOC: CARD 13:01
PROVIDERS: ATTEND Nurse Practitioner Family
DX: I10 Essential (primary) hypertension (principal); I49.3 Ventricular premature depolarization; R00.2 Palpitations; I34.0 Nonrheumatic mitral (valve) insufficiency; Z79.899 Other long term (current) drug therapy
CPT/HCPCS: 93306

== ENCOUNTER → 2019-11-01 | Outpatient (CLI) | payer MEDICARE ==
[~2019-11-01] MED LIST changes: +REGADENOSON 0.4 MG/5 ML SYR (LEXISCAN) IV ONE
[2019-11-01 09:00] VITALS: BP 127/76
--- NOTE | 2019-11-01 18:46 | STRESS TEST ---
DATE OF SERVICE: 11/01/2019 RESTING AND POST REGADENOSON TECHNETIUM-99M TETROFOSMIN SPECT CT IMAGING ORDERING PHYSICIAN: Mary Beth Ramon APRN PRIMARY PHYSICIAN: Shirley Tamez APRN CLINICAL DIAGNOSES: Palpitations, premature ventricular contractions, hypertension. Baseline images were carried out after injection of 10.94 mCi of technetium-99m Tetrofosmin. This was followed by 0.4 mg regadenoson and 29.2 mCi of technetium-99m Tetrofosmin for stress imaging. The electrocardiogram showed sinus rhythm with first-degree AV block and with incomplete right bundle-branch block. The electrocardiogram did not change significantly with regadenoson infusion. The patient reported some nausea following regadenoson infusion, which resolved in a few minutes. Review of images at rest and following stress does not indicate any significant perfusion defects consistent with myocardial ischemia or infarction. Gated images show normal global left ventricular systolic function with hyperdynamic regional wall motion. Left ventricular ejection fraction is calculated to be 83%. CONCLUSIONS: 1. No evidence of any significant myocardial ischemia or infarction on study. 2. Hyperdynamic left ventricular systolic function with ejection fraction 83%. 3. Normal regional wall motion. Job ID: [id number] DocumentID: [id number] Dictated Date: 11/01/2019 17:45:57 Dish Stacker Date: 11/01/2019 18:44:54 Dictated By: KEIRA BANKS MD, MA, FACP, FACC,
== END ==
LOC: CARD 06:43
PROVIDERS: ATTEND Nurse Practitioner Family
DX: I49.3 Ventricular premature depolarization (principal); I10 Essential (primary) hypertension; I34.0 Nonrheumatic mitral (valve) insufficiency
CPT/HCPCS: 78452; 93017

== ENCOUNTER → 2020-03-19 | Outpatient (CLI) | payer MEDICARE ==
[~2020-03-19] MED LIST changes: -REGADENOSON 0.4 MG/5 ML SYR (LEXISCAN) IV ONE
--- NOTE | 2020-03-19 18:02 | Diagnostic Imaging Report ---
MRI RT UPPER EXT JOINT W/O TECHNIQUE: Multiplanar, multisequence MR imaging of the right shoulder was performed without contrast. COMPARISON: None available. INDICATION: Right shoulder pain. History of two previous shoulder surgeries. FINDINGS: Rotator cuff: No high-grade partial or full-thickness rotator cuff tear. Mild tendinopathy of the infraspinatus is noted without superimposed tearing. No rotator cuff muscle atrophy. Glenoid labrum: Truncation of the superior and posterior aspect of the glenoid labrum may represent degenerative free edge tearing versus prior debridement. No chondral labral separation or paralabral cyst. Long head of biceps: Intracapsular segment of long head of the biceps is now well-appreciated and may have undergone tenotomy. Bones and cartilage: Humeral head is normal in morphology without fracture or focal osseous lesion. No glenohumeral chondromalacia. Status post distal clavicular partial resection. Soft tissues: No glenohumeral joint effusion. No MRI findings to suggest adhesive capsulitis. No fluid or inflammatory like signal within the subacromial/subdeltoid space to indicate bursitis. IMPRESSION: 1. No rotator cuff tear. Mild tendinopathy of the infraspinatus. 2. Truncation of the glenoid labrum may be due to prior surgical debridement or degenerative tearing. 3. Intracapsular segment of long head of the biceps is not seen and there may have been prior surgical tenotomy versus tear of the long head of biceps. Dictated by: Dictated on workstation # [id number]
== END ==
LOC: RAD 13:32
PROVIDERS: ATTEND Orthopaedic Surgery
DX: M19.011 Primary osteoarthritis, right shoulder (principal); M67.813 Other specified disorders of tendon, right shoulder; Z98.890 Other specified postprocedural states
CPT/HCPCS: 73221

== ENCOUNTER 2020-04-26 09:14 | Outpatient (RCR) | payer MEDICARE | END 2020-04-26 12:01 | disposition home or self-care (01) | PROVIDERS: ATTEND Nurse Practitioner Family | DX: M19.011 Primary osteoarthritis, right shoulder (principal); M50.321 Other cervical disc degeneration at C4-C5 level; M47.812 Spondylosis without myelopathy or radiculopathy, cervical region ==

== ENCOUNTER → 2020-05-08 | Outpatient (CLI) | payer MEDICARE ==
--- NOTE | 2020-05-08 10:38 | Diagnostic Imaging Report ---
INDICATION: Screening. TECHNIQUE: The current study was also evaluated with a Computer Aided Detection (CAD) system. 3-D Tomographic imaging was also performed. COMPARISON: 04/26/2019, 04/12/2018, and 01/13/2017. FINDINGS: The fibroglandular tissue is heterogeneously dense bilaterally, right greater than left. There is a surgical clip in the central right breast. There are vascular and benign-type calcinations. There is no dominant mass, spiculated lesion, or suspicious calcification identified. The skin, nipples, and axillae are unremarkable. IMPRESSION: Benign. ACR BI-RADS Category 2: Benign findings. Result letter will be mailed to the patient. Note: At least 10% of breast cancer is not imaged by mammography. Dictated by: Dictated on workstation # [id number]
== END ==
LOC: RAD 08:41
PROVIDERS: ATTEND Nurse Practitioner Community Health
DX: Z12.31 Encounter for screening mammogram for malignant neoplasm of breast (principal)
CPT/HCPCS: 77063; 77067

== ENCOUNTER 2020-12-17 05:40 | Outpatient (RCR) | payer MEDICARE ==
[~2020-12-17] VITALS: Ht 170.2 cm; Wt 94.9 kg
[~2020-12-17 05:40] MED LIST changes: -ALPR0.254 PO; -FOLI0.4T2 PO; +FOLI0.4T6 PO; -FOLI1TAB24 PO; +FOLI1TAB33 PO
[2020-12-17] MEDS ORDERED: HYDR200T78 PO (14:11)
[2020-12-17] MEDS ORDERED: DULO60CA6 PO (14:11)
== END 2021-03-17 | disposition home or self-care (01) ==
LOC: PREOP 05:40 → EDSTATUS 10:00
PROVIDERS: ATTEND Surgery
DX: Z01.818 Encounter for other preprocedural examination (principal)

== ENCOUNTER → 2021-01-14 | Outpatient (CLI) | payer MEDICARE ==
[~2021-01-14] MED LIST changes: +DULO60CA6 PO; +HYDR200T78 PO
--- NOTE | 2021-01-14 09:58 | Diagnostic Imaging Report ---
PROCEDURE: MRI lumbar spine. TECHNIQUE: Multiplanar, multisequence MRI of the lumbar spine was performed without contrast. INDICATION: Chronic low back pain. COMPARISON: 05/23/2014. FINDINGS: The lumbar spinal curvature and alignment are unremarkable. The vertebral body heights and disc spaces are maintained. No marrow signal abnormality is seen to indicate a fracture. The conus medullaris is unremarkable at the T12 level. Note is made of what appears to be degenerative spurring at the left T10-T11 facet joint resulting in mild left lateral recess stenosis, similar when compared to the previous study. There is diffuse annular bulging of the L2-3 disc which is eccentric toward the left without significant stenosis. There is mild L2-L3 degenerative facet arthropathy with a small amount of facet fluid bilaterally. At L3-L4, there is disc bulging, endplate spurring, and degenerative hypertrophy of the ligamentum flavum. This results in minimal right and mild left neuroforaminal stenosis. At the L4-L5 level, there is also diffuse disc bulging with endplate spurring which flattens the ventral thecal sac and results in mild neuroforaminal stenosis bilaterally. There is also degenerative facet arthropathy and bilateral facet effusions at L5-S1 with mild bilateral neuroforaminal stenoses. IMPRESSION: Lumbar degenerative disc and facet disease as described, similar when compared to the previous study, with mild neuroforaminal stenosis, greater on the left, from L2-L3 through L5-S1. There also appears to be left lateral recess stenosis secondary to osteophytes at T10-T11. Dictated by: Dictated on workstation # [id number]
== END ==
LOC: RAD 08:37
DX: M47.27 Other spondylosis with radiculopathy, lumbosacral region (principal); M47.816 Spondylosis without myelopathy or radiculopathy, lumbar region; M51.26 Other intervertebral disc displacement, lumbar region; M51.17 Intervertebral disc disorders with radiculopathy, lumbosacral region; M48.061 Spinal stenosis, lumbar region without neurogenic claudication; M48.07 Spinal stenosis, lumbosacral region; M46.1 Sacroiliitis, not elsewhere classified; M48.04 Spinal stenosis, thoracic region; M24.28 Disorder of ligament, vertebrae; M25.78 Osteophyte, vertebrae
CPT/HCPCS: 72148

== ENCOUNTER → 2022-01-03 | Outpatient (CLI) | payer MEDICAID, MEDICARE ==
[~2022-01-03] MED LIST changes: -DULO60CA6 PO; +DULO60CA7 PO; +POTA-179 PO
== END ==
LOC: CARD 10:00
PROVIDERS: ATTEND Internal Medicine Cardiovascular Disease
DX: R07.89 Other chest pain (principal)
CPT/HCPCS: 93306

== ENCOUNTER → 2022-01-07 | Outpatient (CLI) | payer MEDICARE ==
[~2022-01-07] VITALS: Ht 170 cm; Wt 89.0 kg
[~2022-01-07] MED LIST changes: +CATHETER FLUSH 10 ML SYR IVP PRN; +REGADENOSON 0.4 MG/5 ML SYR (LEXISCAN) IV ONE
[2022-01-07 09:25] VITALS: BP 136/66
--- NOTE | 2022-01-10 11:02 | STRESS TEST ---
DATE OF SERVICE: 01/07/2022 RESTING AND POST REGADENOSON TECHNETIUM-99M TETROFOSMIN SPECT CT IMAGING ORDERING PHYSICIAN: Dr. Valenzuela. PRIMARY PHYSICIAN: [facility]. CLINICAL DIAGNOSIS: Chest discomfort. Baseline images were carried out after injection of 10.33 mCi of technetium-99m Tetrofosmin. This was followed by 0.4 mg Regadenoson and 30.1 mCi of technetium-99m Tetrofosmin for stress imaging. The electrocardiogram showed sinus rhythm at baseline. It did not change significantly with the Regadenoson infusion. The patient noted nausea and some heaviness in the legs following Regadenoson infusion, which resolved in a few minutes. Review of images at rest and following stress indicates a moderate amount of anterolateral perfusion defect that is transient. Gated images show a normal global left ventricular systolic function with normal regional wall motion. Left ventricular ejection fraction is calculated to be 76%. Left ventricular end-diastolic volume is 43 mL. SDS is 6. CONCLUSIONS: 1. This study is suggestive of a small to moderate amount of anterolateral ischemia. 2. Normal regional wall motion. 3. Normal global left ventricular systolic function with a calculated ejection fraction of 76%. Job ID: [id number] DocumentID: [id number] Dictated Date: 01/10/2022 09:47:17 Is Technician Date: 01/10/2022 11:01:01 Dictated By: KEIRA VALENZUELA MD, MA, FACP, FACC,
== END ==
LOC: CARD 08:00
PROVIDERS: ATTEND Internal Medicine Cardiovascular Disease
DX: R07.89 Other chest pain (principal)
CPT/HCPCS: 78452; 93017; A9502

== ENCOUNTER → 2022-02-13 | Outpatient (CLI) | payer MEDICARE, MEDICAID ==
[~2022-02-13] MED LIST changes: -CATHETER FLUSH 10 ML SYR IVP PRN; -REGADENOSON 0.4 MG/5 ML SYR (LEXISCAN) IV ONE
--- NOTE | 2022-02-14 12:46 | Diagnostic Imaging Report ---
Indication: Thyroid carcinoma.20status post total thyroidectomy. Patient was administered 206 uCi of I-123 orally and 24-hour thyroid uptake and scan was performed. 24 hour thyroid uptake is 0.93%. Thyroid scan does show some activity within the thyroid bed, likely on the basis of residual thyroid tissue. No hot or cold nodule is seen. IMPRESSION: There does appear to be some residual thyroid tissue in the thyroid bed, as described. Dictated by: Dictated on workstation # [id number]
== END ==
LOC: CARD 11:00
PROVIDERS: ATTEND Nurse Practitioner Family
DX: C73 Malignant neoplasm of thyroid gland (principal); Z90.89 Acquired absence of other organs
CPT/HCPCS: 78014; A9516

== ENCOUNTER 2022-05-30 12:49 | Outpatient (CLI) | payer MEDICARE, MEDICAID ==
[~2022-05-30] VITALS: Ht 170.2 cm; Wt 86.6 kg
[2022-05-30] MEDS ORDERED: LISI20TA26 PO (16:27)
[2022-05-30] MEDS ORDERED: GABA300C PO (16:27)
[2022-05-30] MEDS ORDERED: DESV100T16 PO (16:27)
[2022-05-30] MEDS ORDERED: LEVO100T7 PO (16:27)
== END 2022-05-30 16:32 | disposition home or self-care (01) ==
LOC: PREOP 12:49
PROVIDERS: ATTEND Surgery
DX: Z01.818 Encounter for other preprocedural examination (principal); K21.9 Gastro-esophageal reflux disease without esophagitis; Z80.0 Family history of malignant neoplasm of digestive organs

== ENCOUNTER 2022-06-04 08:43 | Day surgery (SDC) | payer MEDICARE, MEDICAID ==
[~2022-06-04] VITALS: Ht 170 cm; Wt 86.6 kg
[~2022-06-04 08:43] MED LIST changes: +DESV100T16 PO; +GABA300C PO; +LISI20TA26 PO
[2022-06-04] MEDS ORDERED: LACTATED RINGERS 1,000 ML IV STA (09:17)
[2022-06-04] MEDS ORDERED: HURRICAINE EXT TUBE (BENZOCAINE) XX PRN (09:30)
[2022-06-04] MEDS ORDERED: LIDOCAINE JELLY 2% 6 ML SYRINGE MM PRN (09:30)
[2022-06-04 10:00] VITALS: BP 127/75
[2022-06-04] MEDS ORDERED: HURRICAINE EXT TUBE (BENZOCAINE) ONE (10:27)
[2022-06-04] MEDS ORDERED: LIDOCAINE JELLY 2% 6 ML SYRINGE ONE (10:28)
[2022-06-04] MEDS ORDERED: PROPOFOL INJECTION 50 ML IV ONE (10:28)
[2022-06-04] MEDS ORDERED: MIDAZOLAM 2 MG/2 ML (VERSED) VIAL ONE (10:28)
--- NOTE | 2022-06-04 10:37 | Progress Note-Pre Operative ---
Pre-Operative Progress Note Date of Available H&P: Jun 04, 2022 Date H&P Reviewed: Jun 04, 2022 Time H&P Reviewed: 10:00 History & Physical: No changes noted Pre-Operative Diagnosis: GERD, screening colo/FH BRANDYN MILLER MD Jun 04, 2022 10:37
[2022-06-04] MEDS ORDERED: PANT40TA2 PO (10:38)
--- NOTE | 2022-06-04 10:39 | Discharge Inst-Surgical ---
D/C Lap Instructions-KIDO New, Converted, or Re-Newed RX: RX on Chart Follow Up Activity as tolerated High Fiber Diet 25g or more per day Avoid Alcohol, Caffeine, Spicy Quinter and Acid foods. Drink 64 fluid oz or more of fluids per day. Symptoms to Report: Fever over 101 degree F, Nausea/Vomiting If any problems/questions: Contact your physician or go to Emergency Room BRANDYN MILLER MD Jun 04, 2022 10:39
[2022-06-04] MEDS ORDERED: ONDANSETRON 4 MG/2 ML (SDV) Z0FRAN IVP PRN (10:45)
[2022-06-04] MEDS ORDERED: ONDANSETRON 4 MG (ZOFRAN) ORAL DISSOLVE TAB PO PRN (10:45)
[2022-06-04 11:20] VITALS: BP 105/62
--- NOTE | 2022-06-04 12:07 | Progress Note-Post Operative ---
Post-Operative Progess Note Surgeon (s)/Junior Architect (s) Surgeon BRANDYN MILLER MD Junior Architect: none Pre-Operative Diagnosis GERD, screening colo/FH Post-Operative Diagnosis reflux esophagitis(grade B), small-mod type 1 sliding HH(2.5cm-3cm), moderate gastritis. mild sigmoid diverticulosis. Procedure & Operative Findings Date of Procedure 06/04/22 Procedure Performed/Findings EGD with bx. colonoscopy Anesthesia Type mac Estimated Blood Loss Estimated blood loss (mL): minimal Specimens/Packing Specimens Removed ge jxn, antrum BRANDYN MILLER MD Jun 04, 2022 12:07
[2022-06-04 12:08] VITALS: BP 105/62
--- NOTE | 2022-06-04 13:01 | Anesthesia-General Post-Op ---
MAC Patient Condition Mental Status/LOC: Same as Preop Cardiovascular: Satisfactory Nausea/Vomiting: Absent Respiratory: Satisfactory Pain: Controlled Complications: Absent Post Op Complications Complications None Follow Up Care/Instructions Patient Instructions None needed. Anesthesiology Discharge Order Discharge Order Patient was doing well after the procedure with no complaints, stable vital signs, no apparent adverse anesthesia problems. No complications reported per nursing. MAXINE GILES DO Jun 04, 2022 13:00
--- NOTE | 2022-06-04 19:03 | OPERATIVE REPORT ---
DATE OF SERVICE: 06/04/2022 ATTENDING PRIMARY CARE PHYSICIAN: [facility]. PREOPERATIVE DIAGNOSES: Gastroesophageal reflux disease, screening colonoscopy with family history of colon cancer. POSTOPERATIVE DIAGNOSES: Reflux esophagitis, [place] grade B, small to moderate size hiatal hernia approximately 2.5 to 3 cm in size, moderate gastritis, mild sigmoid diverticulosis. PROCEDURE: EGD with biopsy, colonoscopy. SURGEON: Brandyn Miller MD. ANESTHESIA: Monitored anesthesia care. ESTIMATED BLOOD LOSS: Minimal. FINDINGS: Reflux esophagitis, [place] grade B, small to moderate size hiatal hernia approximately 2.5 to 3 cm in size, moderate gastritis, mild sigmoid diverticulosis. DISPOSITION: The patient tolerated the procedure well. INDICATIONS: The patient is a 62-year-old female who has had some issues with reflux usually at night. She is currently on omeprazole 20 mg daily. She states that this has worsened over time. She also is in need of a screening colonoscopy. She does have a first-degree family history of colon cancer with her sister having the disease. DESCRIPTION OF PROCEDURE: The patient was brought to the endoscopy suite, laid in left lateral decubitus position. After adequate IV pain and sedative medications and monitored anesthesia care, the mouthpiece was applied. The endoscope was placed in the mouth, visualizing the pharynx and hypopharyngeal region. Vocal cords, epiglottis and vallecula identified and appeared to be normal. The endoscope was then gently intubated into the esophageal opening and esophagus insufflated. The endoscope was then advanced through the first, second and third portion of esophagus at the level of the GE junction, reflux esophagitis, [place] grade B identified. No ulcers or strictures identified in this region. A biopsy was taken with forceps with visualization of good hemostasis. The endoscope was then advanced into the stomach and endoscope retroflexed, visualizing a small to moderate sized type 1 sliding hiatal hernia approximately 2.5 to 3 cm in size. There was a moderate severity gastritis towards the stomach antrum. No formal ulcerations, polyps, or any neoplasms. A biopsy was taken of the antrum to rule out H. pylori with visualization of good hemostasis. The endoscope was then advanced through the pylorus and the first and second portion of the duodenum with no ulcerations identified. The endoscope was then slowly withdrawn while taking a second look and suctioning of residual air with no additional findings. The patient tolerated the procedure well. A digital rectal examination was performed. No significant hemorrhoids identified. Normal sphincter tone was felt and there were no palpable masses. The endoscope was then intubated into the anus and rectum gently insufflated. The endoscope was then advanced through the valves of Silva of the rectum with no polyps or any neoplasms identified. Through the sigmoid colon, a mild sigmoid diverticulosis was identified. The endoscope was then advanced and remainder of the descending, transverse and ascending colon to the cecum, which were normal. There were no polyps or any neoplasms identified throughout the colon or rectum. The endoscope was then slowly withdrawn while taking a second look and suctioning of residual air with no additional findings. The patient tolerated the procedure well. We will recommend the necessary lifestyle and dietary accommodation including small and more frequent meals, avoidance of eating at night as well as head elevation while lying supine. She also needs to avoid caffeinated beverages, spicy, greasy and acidic foods. We will also change her PPI acid ecd medication to omeprazole 40 mg daily. We will also recommend a high fiber diet with incorporation of fibre supplement, which should equal or exceed 25 grams daily as well as significant amounts of water to promote soft stools on a daily basis. Due to her first-degree family history of colon cancer, we will recommend a followup colonoscopy in 5 years. Job ID: [id number] DocumentID: [id number] Dictated Date: 06/04/2022 11:26:36 Litigation Legal Assistant Date: 06/04/2022 19:03:21 Dictated By: BRANDYN MILLER MD
== END 2022-06-04 12:08 | disposition home or self-care (01) ==
LOC: ENDO 08:43
PROVIDERS: ATTEND Surgery
DX: Z12.11 Encounter for screening for malignant neoplasm of colon (principal); K21.00 Gastro-esophageal reflux disease with esophagitis, without bleeding; K44.9 Diaphragmatic hernia without obstruction or gangrene; K29.50 Unspecified chronic gastritis without bleeding; K57.30 Diverticulosis of large intestine without perforation or abscess without bleeding; Z79.899 Other long term (current) drug therapy; Z80.0 Family history of malignant neoplasm of digestive organs
CPT/HCPCS: 43239; G0105; 88305

== ENCOUNTER → 2022-09-23 | Outpatient (CLI) | payer MEDICARE, MEDICAID ==
[~2022-09-23] VITALS: Ht 170.2 cm; Wt 90.0 kg
[~2022-09-23] MED LIST changes: +PANT40TA2 PO
== END ==
LOC: PREOP 05:31
PROVIDERS: ATTEND Obstetrics & Gynecology
DX: Z01.818 Encounter for other preprocedural examination (principal)

== ENCOUNTER 2022-09-29 08:39 | Day surgery (SDC) | payer MEDICARE, MEDICAID ==
[2022-09-29] VITALS (11 sets, daily range): BP systolic 119–133; BP diastolic 65–73
[~2022-09-29] VITALS: Ht 170.2 cm; Wt 90.0 kg
[2022-09-29] MEDS ORDERED: LACTATED RINGERS 1,000 ML IV PRN (09:00)
[2022-09-29 09:24] LABS: BASOPHILS # (AUTO) 0.1 10^3/uL (0.0-0.1); BASOPHILS % (AUTO) 1 % (0-10); EOSINOPHILS # (AUTO) 0.1 10^3/uL (0.0-0.3); EOSINOPHILS % (AUTO) 2 % (0-10); HEMATOCRIT 42 % (35-52); HEMOGLOBIN 13.8 g/dL (11.5-16.0); LYMPHOCYTES # (AUTO) 1.3 10^3/uL (1.0-4.0); LYMPHOCYTES % (AUTO) 19 % (12-44); MEAN CORPUSCULAR HEMOGLOBIN 31 pg (25-34); MEAN CORPUSCULAR HGB CONC 33 g/dL (32-36); MEAN CORPUSCULAR VOLUME 94 fL (80-99); MEAN PLATELET VOLUME 10.4 fL (9.0-12.2); MONOCYTES # (AUTO) 0.5 10^3/uL (0.0-1.0); MONOCYTES % (AUTO) 8 % (0-12); NEUTROPHILS # (AUTO) 4.7 10^3/uL (1.8-7.8); NEUTROPHILS % (AUTO) 70 % (42-75); PLATELET COUNT 257 10^3/uL (130-400); WHITE BLOOD COUNT 6.7 10^3/uL (4.3-11.0)
--- NOTE | 2022-09-29 10:24 | History & Physical-Surgical ---
HPO-Surgical History of Present Illness Chief Complaint: PMB Diagnosis/Surgical Indication: THICKENED ENDOMETRIUM Procedure: DILATION AND CURETTAGE Date of Surgery: Sep 29, 2022 Weight (Pounds): 193 Weight (Ounces): 0.0 Height (Feet): 5 Height (Inches): 7.00 Allergies and Home Medications Allergies Coded Allergies: Penicillins (Verified Allergy, Severe, CARDIAC ARREST, 09/23/22) yeast, dried (Unverified Allergy, Mild, 09/23/22) Patient Home Medication List Home Medication List Reviewed: Yes Bumetanide (Bumetanide) 2 Mg Tablet, 1 MG PO BID, (Reported) Entered as Reported by: HOUSTON GILLESPIE on 07/09/16 0932 Desvenlafaxine Succinate (Desvenlafaxine Succinate ER) 100 Mg Tab.er.24h, 100 MG PO DAILY, (Reported) Entered as Reported by: BRITTON ENGLAND on 05/30/22 1627 Folic Acid (Folic Acid) 1 Mg Tablet, 1 MG PO DAILY, (Reported) Entered as Reported by: HOUSTON GILLESPIE on 06/03/18 1409 Gabapentin (Neurontin) 300 Mg Capsule, 300 MG PO TID, (Reported) Entered as Reported by: BRITTON ENGLAND on 05/30/22 1627 Hydroxychloroquine Sulfate (Plaquenil) 200 Mg Tablet, 200 MG PO BID, (Reported) Entered as Reported by: ISHAAN BAUM on 12/17/20 1411 Levothyroxine Sodium (Levothyroxine Sodium) 100 Mcg Tablet, 100 MCG PO DAILY, (Reported) Entered as Reported by: BRITTON ENGLAND on 05/30/22 1627 Lisinopril (Lisinopril) 20 Mg Tablet, 20 MG PO DAILY, (Reported) Entered as Reported by: BRITTON ENGLAND on 05/30/22 1627 Metformin HCl (Metformin HCl) 500 Mg Tablet, 500 MG PO BID, (Reported) Entered as Reported by: HOUSTON GILLESPIE on 05/01/16 1237 Methotrexate Tablet (Methotrexate Tablet) 2.5 Mg Tab, 17.5 MG PO WEEK, (Reported) Entered as Reported by: KRANTHI CHAPARRO on 10/20/17 1019 Multivitamin/Iron/Folic Acid (Centrum Complete Multivit Tab) 1 Each Tablet, 1 EACH PO DAILY, (Reported) Entered as Reported by: HOUSTON GILLESPIE on 07/09/16 0932 Omeprazole (Omeprazole) 20 Mg Capsule.dr, 20 MG PO BID, (Reported) Entered as Reported by: HOUSTON GILLESPIE on 05/01/16 1237 Pantoprazole Sodium (Protonix) 40 Mg Tablet.dr, 40 MG PO DAILY Prescribed by: BRANDYN MILLER on 06/04/22 1038 Potassium Chloride (Potassium Chloride) 20 Meq Tab.er.prt, 20 MEQ PO BID, (Reported) Entered as Reported by: HOUSTON GILLESPIE on 06/03/18 1408 Tramadol HCl (Tramadol HCl) 50 Mg Tablet, 50 MG PO TID, (Reported) Entered as Reported by: HOUSTON GILLESPIE on 06/03/18 1409 Past Hvugryl-Orsesy-Nauqjk Hx Patient Social History Smoking Status: Never a Smoker 2nd Hand Smoke Exposure: No Recent Hopitalizations: No Immunizations Up To Date Tetanus Booster (TDap): Unknown Date of Pneumonia Vaccine: Jul 29, 2015 Date of Influenza Vaccine: Jun 18, 2022 Seasonal Allergies Seasonal Allergies: No Surgeries Yes (OVARIAN SURGERY, FOOT, R SHOULDER SCOPE, NECK FUSION, skin ca removed) Gallbladder, Thyroidectomy, Tonsillectomy Respiratory Yes Currently Using CPAP: Yes (recently dx with sleep apnea hasnt gotten machine yet) Cardiovascular Yes (CHF) Heart Murmur, Hypertension Neurological Yes Headaches /Migraines, Neuropathy Reproductive System Hx Reproductive Disorders: No Sexually Transmitted Disease: No HIV/AIDS: No Female Reproductive Disorders: Denies 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 Genitourinary No Gastrointestinal Yes Gastroesophageal Reflux, Chronic Constipation Musculoskeletal Yes Degenerate Disk Disease, Arthritis, Rheumatoid Arthritis, Chronic Back Pain Endocrine History of Endocrine Disorders: Yes (INSULIN RESISTANCE) Endocrine Disorders: Hypothyroidsim HEENT History of HEENT Disorders: No Loss of Vision: Denies Hearing Impairment: Denies Cancer Yes (SKIN) Skin, Thyroid Did You Recieve Any Treatments: No Type of Treatment: Surgical Intervention Psychosocial History of Psychiatric Problem: Yes Behavioral Health Disorders: Anxiety, Depression Integumentary History of Skin or Integumenta: No Blood Transfusions History of Blood Disorders: No Adverse Reaction to a Blood Tr: No (N/A) Family Medical History Family Hx: FH: colon cancer Exam Vital Signs Vital Signs 09/29/22 09:00 Temp 36.4 Pulse 74 Resp 18 B/P (MAP) 133/73 (93) Pulse Ox 99 O2 Delivery Room Air Capillary Refill : Labs Laboratory Tests Test 09/29/22 09:15 Range/Units White Blood Count 6.7 4.3-11.0 10^3/uL Red Blood Count 4.45 3.80-5.11 10^6/uL Hemoglobin 13.8 11.5-16.0 g/dL Hematocrit 42 35-52 % Mean Corpuscular Volume 94 80-99 fL Mean Corpuscular Hemoglobin 31 25-34 pg Mean Corpuscular Hemoglobin Concent 33 32-36 g/dL Red Cell Distribution Width 13.2 10.0-14.5 % Platelet Count 257 130-400 10^3/uL Mean Platelet Volume 10.4 9.0-12.2 fL Immature Granulocyte % (Auto) 0 % Neutrophils (%) (Auto) 70 42-75 % Lymphocytes (%) (Auto) 19 12-44 % Monocytes (%) (Auto) 8 0-12 % Eosinophils (%) (Auto) 2 0-10 % Basophils (%) (Auto) 1 0-10 % Neutrophils # (Auto) 4.7 1.8-7.8 10^3/uL Lymphocytes # (Auto) 1.3 1.0-4.0 10^3/uL Monocytes # (Auto) 0.5 0.0-1.0 10^3/uL Eosinophils # (Auto) 0.1 0.0-0.3 10^3/uL Basophils # (Auto) 0.1 0.0-0.1 10^3/uL Immature Granulocyte # (Auto) 0.0 0.0-0.1 10^3/uL General Appearance: Alert, Oriented X3 HEENT: Atraumatic Respiratory: Clear to Auscultation Cardiovascular: Regular Rate Abdominal: Normal Bowel Sounds Psych/Mental Status: Mental Status NL Assessment/Plan Assessment and Plan Diagnosis: 62 yo female with PMB Thickened endometrium on US P: Dilatation and curretage Admission Diagnosis PMB Thickened endometrium Admission Status: Observation ELIAZAR VILLAGRNA DO Sep 29, 2022 10:24
--- NOTE | 2022-09-29 10:27 | Discharge Inst-Women's Service ---
Discharge Inst-Women's Serv Depart Medication/Instructions New, Converted or Re-Newed RX: Other (take OTC meds as needed. Tylenol and Motrin(NSAIDs)) Problems Reviewed?: Yes Consults/Follow Up Additional Follow Up: Yes Orders/Referrals Dr. Villagran in 2-3 weeks Activity Activity: Activity as Tolerated Driving Instructions: No Driving for 1 Week NO SMOKING: NO SMOKING Nothing Inside Vagina: No Douching, No Bradshaw, No Tampons Diet Discharge Diet: No Restrictions Symptoms to Report to : Bleeding Excessive, Pain Increased, Fever Over 101 Degrees F, Vaginal Bleeding Increase, Questions/Concerns For Any Problems or Questions: Contact Your Physician ELIAZAR VILLAGRAN DO Sep 29, 2022 10:27
[2022-09-29] MEDS ORDERED: ONDANSETRON 4 MG/2 ML (SDV) Z0FRAN IVP PRN ×2 (10:30→12:45)
[2022-09-29] MEDS ORDERED: D5 LR IV SOLUTION 1,000 ML IV SCH (10:30)
[2022-09-29] MEDS ORDERED: KETOROLAC 30 MG/ML VIAL IVP ONE (10:30)
[2022-09-29] MEDS ORDERED: HYDROcodone/APAP 5 MG/325 MG (LORTAB) TAB PO PRN (10:30)
[2022-09-29] MEDS ORDERED: BUPIVACAINE 0.25% 30 ML (SENSORCAINE) VIAL ONE (10:46)
[2022-09-29] MEDS ORDERED: SEVOFLURANE (ULTANE) 15 ML INHAL SOLN ONE (10:49)
[2022-09-29] MEDS ORDERED: LIDOCAINE PF 2% 5 ML (XYLOCAINE) VIAL ONE (10:49)
[2022-09-29] MEDS ORDERED: proPOfol 200 MG/20 ML (DIPRIVAN) VIAL IV ONE (10:49)
[2022-09-29] MEDS ORDERED: fentaNYL INJ 100 MCG/2 ML AMP ONE (10:49)
[2022-09-29] MEDS ORDERED: MIDAZOLAM 2 MG/2 ML (VERSED) VIAL ONE (10:49)
[2022-09-29] MEDS ORDERED: ONDANSETRON 4 MG/2 ML (SDV) Z0FRAN ONE (10:49)
[2022-09-29] MEDS ORDERED: BUPIVACAINE 0.25% 30 ML (SENSORCAINE) VIAL INJ ONE (10:52)
[2022-09-29] MEDS ORDERED: KETOROLAC 30 MG/ML VIAL ONE (12:23)
[2022-09-29] MEDS ORDERED: fentaNYL INJ 100 MCG/2 ML AMP IVP ONE (12:45)
[2022-09-29] MEDS ORDERED: morphine INJ 10 MG/ML 1ML (SYR OR VIAL) IVP ONE (12:45)
[2022-09-29] MEDS ORDERED: PROMETHAZINE INJ 25 MG/ML (PHENERGAN) AMP IVP ONE (12:45)
--- NOTE | 2022-09-29 13:47 | Anesthesia-General Post-Op ---
General Patient Condition Mental Status/LOC: Same as Preop Cardiovascular: Satisfactory Nausea/Vomiting: Absent Respiratory: Satisfactory Pain: Controlled Complications: Absent Post Op Complications Complications None Follow Up Care/Instructions Patient Instructions None needed. Anesthesia/Patient Condition Patient Condition Patient is doing well, no complaints, stable vital signs, no apparent adverse anesthesia problems. No complications reported per nursing. SIENA CAZARES CRNA Sep 29, 2022 13:47
--- NOTE | 2022-09-29 21:23 | OPERATIVE REPORT ---
DATE OF SERVICE: 09/29/2022 PREOPERATIVE DIAGNOSES: 1. A 62-year-old female with postmenopausal bleeding. 2. Thickened endometrium on ultrasound. POSTOPERATIVE DIAGNOSES: 1. A 62-year-old female with postmenopausal bleeding. 2. Thickened endometrium on ultrasound. PROCEDURE: D and C. SURGEON: Eliazar Villagran DO. ANESTHESIA: LMA general. ESTIMATED BLOOD LOSS: Minimal. URINE OUTPUT: 200 mL drained at the end of the procedure. FLUIDS: 800 mL lactated Ringer's solution. FINDINGS: Grossly normal-appearing external female genitalia, age appropriate atrophy of the mucosa, small to moderate amount of endometrial curettings. SPECIMEN SENT: Endometrial curettings. INDICATIONS FOR PROCEDURE: This 62-year-old female who had sought consultation in my office for episodes of postmenopausal bleeding that had been heavy at times as well as an ultrasound, which showed thickened endometrium. Discussed with the patient need for endometrial sampling. We discussed methods in the office. The patient opted to proceed with D and C under anesthesia sedation. Risks of the procedure were discussed with the patient in detail as well as its benefit. After all of her questions were answered, consent was obtained. The patient was agreeable. The patient was taken to the operating room. OPERATIVE REPORT IN DETAIL: Once in the operating room, anesthesia was found to be adequate, she was placed in dorsal lithotomy position, prepped and draped in normal sterile fashion. A timeout was performed. A weighted speculum was inserted in the patient's vagina. Right angle retractor was utilized. Cervix was grasped at 12 o'clock position using a long single tooth tenaculum. I then gently sounded uterine cavity, depth was found to be 7 cm. I then gently dilated the cervix using Hegar dilators to maximum dilatation of approximately 1 cm. I performed paracervical block at 3 and 9 o'clock positions on the cervix. Care was taken to aspirate before injecting; 5 mL of 0.25% Marcaine were injected in each site. I then performed a gentle curettage of the endometrium until a slight uterine cry is appreciated and all of this tissue was collected as endometrial curettings. I then removed all the instruments from the patient's vagina. The patient tolerated the procedure well and was sent to recovery in stable condition. Lap and sponge counts were correct at the end of the procedure. Instrument counts were correct as well. Bladder was straight catheterized at the end of the procedure. Job ID: [id number] DocumentID: [id number] Dictated Date: 09/29/2022 12:40:43 Tonnage Compilation Clerk Date: 09/29/2022 21:22:00 Dictated By: ELIAZAR VILLAGRAN DO
== END 2022-09-29 14:25 | disposition home or self-care (01) ==
LOC: SDC 08:39
PROVIDERS: ATTEND Obstetrics & Gynecology
DX: N95.0 Postmenopausal bleeding (principal); R93.5 Abnormal findings on diagnostic imaging of other abdominal regions, including retroperitoneum; K21.9 Gastro-esophageal reflux disease without esophagitis; E66.9 Obesity, unspecified; Z68.31 Body mass index [BMI] 31.0-31.9, adult; Z85.828 Personal history of other malignant neoplasm of skin; Z85.850 Personal history of malignant neoplasm of thyroid
CPT/HCPCS: 36415; 85025; 86850; 86900; 86901; 87081